=== PATIENT | female | born 1970 | race Caucasian/White ===

== ENCOUNTER 2023-05-14 18:37 | Outpatient (REF) | payer OTHER, SELFPAY ==
[2023-05-20 12:09] LABS: Age Gdln ACOG Testing Note (.); HPV Aptima Negative (Negative); IGP, Aptima HPV, rfx 16/18,45 Note (.)
== END 2023-05-14 18:38 | disposition home or self-care (01) ==
LOC: LAB 18:37
PROVIDERS: PCP Family Medicine; Visit Provider Obstetrics & Gynecology
DX: Z01.419 Encounter for gynecological examination (general) (routine) without abnormal findings (principal)
CPT/HCPCS: 87624; G0145

== ENCOUNTER 2023-05-19 07:52 | Outpatient (OUT) | payer OTHER, SELFPAY ==
--- NOTE | 2023-05-19 07:53 | MM_ITS ---
Patient Name: RENETTA COELLO MR#: [id number] : 1970 Exam Date: 05/19/2023 Ordering Doctor: VANNESSA Calix . RADIOLOGY REPORT PROCEDURE: MM TOMOSYNTHESIS SCREENING BI COMPARISON: MG MAMM SCREEN 3D JENNIFER CAD, 05/14/2022. MG MAMM SCREEN 3D JENNIFER CAD, 05/11/2021. MG MAMM SCREEN JENNIFER W CAD, 05/10/2020. MG MAMM JENNIFER SCRN W CAD DIG, 10/01/2013. INDICATIONS: Screening Calculator Name NCI Breast Cancer Risk Assessment Tool 5 Year Breast Cancer Risk 2.90% Lifetime Breast Cancer Risk 21.20% Personal Breast Cancer No Personal Ovarian Cancer No Treatments None Family Cancers Mother with breast cancer at age 70; Sister with melanoma cancer at age ~20. LOCATION: [facility] BREAST COMPOSITION: Heterogeneously dense,which may obscure small masses. FINDINGS: DIAGNOSTIC CATEGORY 1--NEGATIVE. RIGHT BREAST: No significant suspicious finding. No significant change has occurred. LEFT BREAST: No significant suspicious finding. Stable biopsy marker clips within upper-outer quadrant. No significant change has occurred. RECOMMENDATIONS: ROUTINE MAMMOGRAM AND CLINICAL EVALUATION IN 12 MONTHS. PLEASE NOTE: A NORMAL MAMMOGRAM DOES NOT EXCLUDE THE POSSIBILITY OF BREAST CANCER. A CLINICALLY SUSPICIOUS PALPABLE LUMP SHOULD BE BIOPSIED. Dictated by: Cheikh Russo M.D. on 05/21/2023 at 12:55 Approved by: Cheikh Russo M.D. on 05/21/2023 at 12:59
== END 2023-05-19 07:53 | disposition home or self-care (01) ==
LOC: MAMMO 07:52
PROVIDERS: PCP Family Medicine; Visit Provider Obstetrics & Gynecology
DX: Z12.31 Encounter for screening mammogram for malignant neoplasm of breast (principal); Z80.3 Family history of malignant neoplasm of breast; Z80.8 Family history of malignant neoplasm of other organs or systems
CPT/HCPCS: 77063; 77067

== ENCOUNTER 2023-06-19 12:20 | Outpatient (OUT) | payer OTHER, SELFPAY ==
--- OUTSIDE RECORDS SUMMARY | 2023-06-19 12:24 | XMS_ITS | CCD ---
Author Name Unknown Address [address] [place] [address] Organization [facility] Care Team Providers Care Cd Mixer Helper Name Role Phone DARCIE ., DR HUA Consulting Unavailable HOY ., DR MORENO Primary Care Unavailable DARCIE ., DR HUA Attending Unavailable DARCIE ., DR HUA Admitting Unavailable VERONIQUEJOSE Consulting Unavailable MCCASTER, VELVET Consulting Unavailable GEMBUS, DICK Consulting Unavailable DARCIE ., DR HUA Consulting Unavailable HOY ., DR MORENO Primary Care Unavailable DARCIE ., DR HUA Attending Unavailable DARCIE ., DR HUA Admitting Unavailable DARCIE ., DR HUA Consulting Unavailable HOY ., DR MORENO Primary Care Unavailable DARCIE ., DR HUA Attending Unavailable DARCIE ., DR HUA Admitting Unavailable DARCIE ., DR HUA Consulting Unavailable HOY ., DR MORENO Primary Care Unavailable DARCIE ., DR HUA Attending Unavailable DARCIE ., DR HUA Admitting Unavailable DARCIE ., DR HUA Consulting Unavailable HOY ., DR MORENO Primary Care Unavailable DARCIE ., DR HUA Attending Unavailable DARCIE ., DR HUA Admitting Unavailable DYLAN, JOAN Consulting Unavailable HOPaloma ., DR MORENO Primary Care Unavailable DYLAN, JOAN Attending Unavailable DYLAN, JOAN Admitting Unavailable DYLAN, JOAN Consulting Unavailable HOPaloma ., DR MORENO Primary Care Unavailable DYLAN, JOAN Attending Unavailable DYLAN, JOAN Admitting Unavailable DARCIE ., DR HUA Consulting Unavailable HOY ., DR MORENO Primary Care Unavailable DARCIE ., DR HUA Attending Unavailable DARCIE ., DR HUA Admitting Unavailable BELMOND, DR ROSSANA Teague Consulting Unavailable HOY ., DR MORENO Primary Care Unavailable DARCIE ., DR HUA Attending Unavailable DARCIE ., DR HUA Admitting Unavailable DARCIE ., DR HUA Consulting Unavailable DARCIE ., DR HUA Consulting Unavailable HOY ., DR MORENO Primary Care Unavailable DARCIE ., DR HUA Attending Unavailable DARCIE ., DR HUA Admitting Unavailable ZIEBER, DR CHEIKH Salguero Consulting Unavailable DIANE ., DR MORENO Consulting Unavailable ANTHONYY ., DR MORENO Primary Care Unavailable ANTHONYY ., DR MORENO Attending Unavailable HOY ., DR MORENO Admitting Unavailable BELMOND, DR ROSSANA Teague Consulting Unavailable REID JORGE Attending Unavailable Allergies Allergy Classification Reported Allergen(s) Allergy Type Date of Onset Reaction(s) Facility (2 sources) Fluconazole Drug Allergy 06-23-2021 [facility] (1 source) levoFLOXacin Drug Allergy [facility] Problems Active Problems Problem Classification Problem Date Documented Date Episodic/Chronic Menopausal disorders (1 source) Menopausal and female climacteric states; Translations: [MENOPAUSAL FE CLIMACTERIC STATES] Onset: 07-03-2022 Chronic Menstrual disorders (10 sources) Excessive and frequent menstruation with regular cycle; Translations: [Dysmenorrhea, unspecified] Onset: 05-09-2022 Chronic Other diseases of veins and lymphatics (4 sources) Venous insufficiency (chronic) (peripheral); Translations: [VENOUS INSUFF CHRONIC PERIPHERAL] Onset: 10-30-2022 Episodic Other endocrine disorders (1 source) Polycystic ovarian syndrome; Translations: [POLYCYSTIC OVARIAN SYNDROME] Onset: 07-03-2022 Chronic Prolapse of female genital organs (1 source) Uterovaginal prolapse, unspecified; Translations: [UTEROVAGINAL PROLAPSE UNSPECIFIED] Onset: 06-21-2022 Chronic Unclassified (1 source) PERSONAL HISTORY OF COVID-19; Translations: [PERSONAL HISTORY OF COVID-19] Onset: 07-03-2022 Unclassified (2 sources) CONTACT W/AND (SUSP) EXPOS COVID-19; Translations: [CONTACT W/AND (SUSP) EXPOS COVID-19] Onset: 06-01-2022 Viral infection (1 source) COVID-19; Translations: [COVID-19] Onset: 06-01-2022 Past or Other Problems Problem Classification Problem Date Documented Da te Episodic/Chronic Abdominal pain (1 source) Pelvic and perineal pain; Translations: [PELVIC AND PERINEAL PAIN] Onset: 07-03-2022 Episodic Immunizations and screening for infectious disease (1 source) Encounter for screening for human papillomavirus (HPV); Translations: [ENC SCREENING HUMAN PAPILLOMAVIRUS] Onset: 05-10-2022 Episodic Inflammatory diseases of female pelvic organs (1 source) Inflammatory disease of cervix uteri; Translations: [INFLAMMATORY DISEASE CERVIX UTERI] Onset: 07-03-2022 Episodic Other aftercare (1 source) Other terminal carman (current) drug therapy; Translations: [OTH NURSING HOME CURRENT DRUG THERAPY] Onset: 07-03-2022 Episodic Other aftercare (1 source) superintendent container terminal (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) use 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 hypoglycemic drugs; Translations: [FAMILY DENTIST USE ORAL HYPOGLYCEMIC DX] Onset: 07-03-2022 Episodic Other female genital disorders (1 source) Polyp of cervix uteri; Translations: [POLYP OF CERVIX UTERI] Onset: 06-21-2022 Episodic Other hematologic conditions (4 sources) Personal history of diseases of the blood and blood-forming organs and certain disorders involving the immune mechanism; Translations: [PERS HX DZ BLD/BLD-FRM ORG IMMN MCH] Onset: 07-04-2022 Episodic Other screening for suspected conditions (not mental disorders or infectious disease) (8 sources) Encounter for screening mammogram for malignant neoplasm of breast; Translations: [Encounter for screening for malignant neoplasm of cervix] Onset: 05-07-2022 Episodic Other skin disorders (1 source) Vitiligo; Translations: [VITILIGO] Onset: 07-03-2022 Episodic Phlebitis; thrombophlebitis and thromboembolism (1 source) Personal history of other venous thrombosis and embolism; Translations: [PERS HX OTH VENOUS THROMBOSIS AND EMBO] Onset: 07-03-2022 Episodic Residual codes; unclassified (1 source) Family history of malignant neoplasm of breast; Translations: [FAMILY HX MALIG NEOPLASM OF BREAST] Onset: 07-03-2022 Episodic Residual codes; unclassified (1 source) Acquired absence of other specified parts of digestive tract; Translations: [ACQ ABSENCE OTH PART DIGESTV TRACT] Onset: 07-03-2022 Episodic Residual codes; unclassified (1 source) Asymptomatic menopausal state; Translations: [ASYMPTOMATIC MENOPAUSAL STATE] Onset: 06-21-2022 Episodic Residual codes; unclassified (1 source) Family history of malignant neoplasm of other organs or systems; Translations: [FAM HX MALIG NEOPLASM OTH ORGN/SYS] Onset: 05-20-2022 Episodic Unclassified (1 source) CONTACT W/AND (SUSP) EXPOS COVID-19; Translations: [CONTACT W/AND (SUSP) EXPOS COVID-19] Onset: 05-28-2022 Urinary tract infections (1 source) Urinary tract infection, site not specified; Translations: [UTI SITE NOT SPECIFIED] Onset: 06-19-2022 Episodic Results Test Name Value Interpretation Reference Range Facility VC VENOUS REFLUX RT LMTon VC VENOUS REFLUX RT LMT Patient: ELIZA COELLO Exam Date: 10/30/2022 : 1970 Gender:F Ordering : DR JOSH HONG . Admission #: [id number] Family : Order #: [id number] CLICK HERE TO VIEW EXAM RADIOLOGY REPORT PROCEDURE: VEIN CENTER ULTRASOUND VENOUS REFLUX RIGHT LIMTED COMPARISON: VC EXT VENOUS RT LIMITED, 05/18/2019. VC EXT VENOUS RT LIMITED, 04/30/2019. INDICATIONS: Peripheral venous insufficiency I87.2 TECHNIQUE: Duplex imaging of the lower extremity to assess the deep and superficial venous system for the presence of deep or superficial venous incompetence and to document the location and severity of disease. The study includes evaluation of the great saphenous vein (GSV), anterior accessory saphenous vein (AASV) and small saphenous vein (SSV). Patient scanned in reverse Trendelenburg and standing. FINDINGS: RIGHT LOWER EXTREMITY: Saphenofemoral Junction Reflux: Yes 8.3mm 2.2 sec GSV: Diam (mm) Reflux/ Time (sec) Proximal Thigh Absent Mid Thigh Distal Thigh Prox Calf Mid Calf Saphenopopliteal Junction Reflux: 6.4 mm Yes 2.1 SSV: Proximal Calf 7.1 Yes 1.6 Mid Calf 3.1 Yes 3.4 AASV: Proximal Thigh 6.0 Yes 1.2 Mid Thigh 2.7 Yes 0.3 Distal Thigh Thrombi: No chronic or acute thrombus. Compressibility: Normal. Flow: Moderate deep venous reflux. Sales Manager: None. Tech Note: Incompetent varicose vein lateral mid calf measures 2.7 mm with 0.3s reflux. Varicose vein distal lateral calf measures 4.2 mm with 2.3s reflux. CONCLUSION: 1. Moderate deep vein reflux 2. Moderate venous insufficiency right small saphenous vein 3. Incompetent varicose veins Dictated by: Rossana Velásquez MD on 10/30/2022 at 12:55 Approved by: Rossana Velásquez MD on 10/30/2022 at 12:59 Normal [facility] CBC AUTO DIFFon 07-04-2022 BASO # 0.1 103/ul Normal 0.0-0.1 [facility] Comment on above: Performed By: #### T SH #### [facility] [address] [place] [address] Dr. Marlene Blanton Basophils/100 WBC (Bld) 0.6 % Normal 0.2-2.0 [facility] Comment on above: Performed By: #### T SH #### [facility] [address] [place] [address] Dr. Marlene Blanton EO # 0.0 103/ul Normal 0.0-0.7 [facility] Comment on above: Performed By: #### T SH #### [facility] [address] [place] [address] Dr. Marlene Blanton Eosinophils/100 WBC (Bld) 0.0 % Critically low 0.9-7.0 [facility] Comment on above: Performed By: #### T SH #### [facility] [address] [place] [address] Dr. Marlene Blanton Erythrocyte distribution width (RBC) [Ratio] 13.3 % Normal 11.0-15.0 [facility] Comment on above: Performed By: #### T SH #### [facility] [address] [place] [address] Dr. Marlene Blanton Hematocrit (Bld) [Volume fraction] 42.3 % Normal 36.0-48.0 [facility] Comment on above: Performed By: #### T SH #### [facility] [address] [place] [address] Dr. Marlene Blanton Hemoglobin (Bld) [Mass/Vol] 13.0 g/dL Normal 12.0-16.0 [facility] Comment on above: Performed By: #### T SH #### [facility] [address] [place] [address] Dr. Marlene Blanton IG # 0.04 10e3/ul Critically high 0.00-0.03 [facility] Comment on above: Performed By: #### T SH #### [facility] [address] [place] [address] Dr. Marlene Blanton IG % 0.4 % Normal 0.0-0.5 [facility] Comment on above: Performed By: #### T SH #### [facility] [address] [place] [address] Dr. Marlene Blanton LYMPH # 2.0 103/ul Normal 1.2-3.8 [facility] Comment on above: Performed By: #### T SH #### [facility] [address] [place] [address] Dr. Marlene Blanton Lymphocytes/100 WBC (Bld) 19.0 % Critically low 20.5-60.0 [facility] Comment on above: Performed By: #### T SH #### [facility] [address] [place] [address] Dr. Marlene Blanton MANUAL DIFF REQ NO Normal [facility] Comment on above: Performed By: #### T SH #### [facility] [address] [place] [address] Dr. Marlene Blanton MCH (RBC) [Entitic mass] 29.6 pg Normal 26.7-34.0 [facility] Comment on above: Performed By: #### T SH #### [facility] [address] [place] [address] Dr. Marlene Blanton MCHC (RBC) [Mass/Vol] 30.7 g/dL Normal 29.9-35.2 [facility] Comment on above: Performed By: #### T SH #### [facility] [address] [place] [address] Dr. Marlene Blanton MCV (RBC) [Entitic vol] 96.4 fL Normal 81.0-99.0 [facility] Comment on above: Performed By: #### T SH #### [facility] [address] [place] [address] Dr. Marlene Blanton MONO # 0.7 103/ul Normal 0.3-0.8 [facility] Comment on above: Performed By: #### T SH #### [facility] [address] [place] [address] Dr. Marlene Blanton Monocytes/100 WBC (Bld) 6.6 % Normal 1.7-12.0 [facility] Comment on above: Performed By: #### T SH #### [facility] [address] [place] [address] Dr. Marlene Blanton NEUT # 7.7 103/ul Critically high 1.4-6.5 [facility] Comment on above: Performed By: #### T SH #### [facility] [address] [place] [address] Dr. Marlene Blanton Neutrophils/100 WBC (Bld) 73.4 % Normal 43.0-75.0 [facility] Comment on above: Performed By: #### T SH #### [facility] [address] [place] [address] Dr. Marlene Blanton Platelet mean volume (Bld) [Entitic vol] 8.9 fL Critically low 9.5-13.5 [facility] Comment on above: Performed By: #### T SH #### [facility] [address] [place] [address] Dr. Marlene Blanton PLT 288 103/ul Normal 150-450 [facility] Comment on above: Performed By: #### T SH #### [facility] [address] [place] [address] Dr. Marlene Blanton RBC 4.39 106/ul Normal 4.20-5.40 [facility] Comment on above: Performed By: #### T SH #### [facility] [address] [place] [address] Dr. Marlene Blanton WBC 10.5 103/ul Normal 4.0-11.0 [facility] Comment on above: Performed By: #### T SH #### [facility] [address] [place] [address] Dr. Marlene Blanton FREE T4on 07-04-2022 Free T4 [Mass/Vol] 0.98 ng/dL Normal 0.76-1.46 [facility] Comment on above: Performed By: #### F T4 #### [facility] [address] [place] [address] Dr. Marlene Blanton PROTIMEon 07-04-2022 INR Coag (PPP) [Relative time] 0.95 {INR} Normal [facility] Comment on above: Performed By: #### P T, PTT #### [facility] [address] [place] [address] Dr. Marlene Blanton INR GUIDELINES SEE BELOW Normal [facility] Comment on above: Result Comment: GLEN RED INR: 2.0 - 3.0 CONDITIONS NOT LISTED BELOW 2.5 - 3.5 FOR PROSTHETIC HEART VALVE REPLACEMENT 2.5 - 3.5 RECURRENT THROMBOSIS Performed By: #### P T, PTT #### [facility] [address] [place] [address] Dr. Marlene Blanton PT Coag (PPP) [Time] 10.1 s Normal 9.0-11.6 [facility] Comment on above: Performed By: #### P T, PTT #### [facility] [address] [place] [address] Dr. Marlene Blanton PTTon 07-04-2022 aPTT Coag (Bld) [Time] 27.2 s Normal 22.3-36.2 [facility] Comment on above: Performed By: #### P T, PTT #### [facility] [address] [place] [address] Dr. Marlene Blanton TSHon 07-04-2022 TSH 1.916 uIU/mL Normal 0.358-3.740 [facility] Comment on above: Performed By: #### T SH #### [facility] [address] [place] [address] Dr. Marlene Blanton BUNon 06-21-2022 Urea nitrogen [Mass/Vol] 8.0 mg/dL Normal 7.0-18.0 [facility] Comment on above: Performed By: #### C BC #### [facility] [address] [place] [address] Dr. Marlene Blanton CBC AUTO DIFFon 06-21-2022 BASO # 0.0 103/ul Normal 0.0-0.1 [facility] Comment on above: Performed By: #### T SH #### [facility] [address] [place] [address] Dr. Marlene Blanton Basophils/100 WBC (Bld) 0.2 % Normal 0.2-2.0 [facility] Comment on above: Performed By: #### T SH #### [facility] [address] [place] [address] Dr. Marlene Blanton EO # 0.0 103/ul Normal 0.0-0.7 [facility] Comment on above: Performed By: #### T SH #### [facility] [address] [place] [address] Dr. Marlene Blanton Eosinophils/100 WBC (Bld) 0.1 % Critically low 0.9-7.0 [facility] Comment on above: Performed By: #### T SH #### [facility] [address] [place] [address] Dr. Marlene Blanton Erythrocyte distribution width (RBC) [Ratio] 13.4 % Normal 11.0-15.0 [facility] Comment on above: Performed By: #### T SH #### [facility] [address] [place] [address] Dr. Marlene Blanton Hematocrit (Bld) [Volume fraction] 33.6 % Critically low 36.0-48.0 [facility] Comment on above: Performed By: #### T SH #### [facility] [address] [place] [address] Dr. Marlene Blanton Hemoglobin (Bld) [Mass/Vol] 10.8 g/dL Critically low 12.0-16.0 [facility] Comment on above: Result Comment: post surgery Performed By: #### T SH #### [facility] [address] [place] [address] Dr. Marlene Blanton IG # 0.06 10e3/ul Critically high 0.00-0.03 [facility] Comment on above: Performed By: #### T SH #### [facility] [address] [place] [address] Dr. Marlene Blanton IG % 0.5 % Normal 0.0-0.5 [facility] Comment on above: Performed By: #### T SH #### [facility] [address] [place] [address] Dr. Marlene Blanton LYMPH # 2.0 103/ul Normal 1.2-3.8 [facility] Comment on above: Performed By: #### T SH #### [facility] [address] [place] [address] Dr. Marlene Blanton Lymphocytes/100 WBC (Bld) 16.1 % Critically low 20.5-60.0 [facility] Comment on above: Performed By: #### T SH #### [facility] [address] [place] [address] Dr. Marlene Blanton MANUAL DIFF REQ NO Normal [facility] Comment on above: Performed By: #### T SH #### [facility] [address] [place] [address] Dr. Marlene Blanton MCH (RBC) [Entitic mass] 29.0 pg Normal 26.7-34.0 [facility] Comment on above: Performed By: #### T SH #### [facility] [address] [place] [address] Dr. Marlene Blanton MCHC (RBC) [Mass/Vol] 32.1 g/dL Normal 29.9-35.2 [facility] Comment on above: Performed By: #### T SH #### [facility] [address] [place] [address] Dr. Marlene Blanton MCV (RBC) [Entitic vol] 90.1 fL Normal 81.0-99.0 [facility] Comment on above: Performed By: #### T SH #### [facility] [address] [place] [address] Dr. Marlene Blanton MONO # 0.7 103/ul Normal 0.3-0.8 [facility] Comment on above: Performed By: #### T SH #### [facility] [address] [address] [address] Marlene Blanton Monocytes/100 WBC (Bld) 5.3 % Normal 1.7-12.0 [facility] Comment on above: Performed By: #### T SH #### [facility] [address] [address] [address] Marlene Blanton NEUT # 9.7 103/ul Critically high 1.4-6.5 [facility] Comment on above: Performed By: #### T SH #### [facility] [address] [address] [address] Marlene Blanton Neutrophils/100 WBC (Bld) 77.8 % Critically high 43.0-75.0 [facility] Comment on above: Performed By: #### T SH #### [facility] [address] [place] [address] Dr. Marlene Blanton Platelet mean volume (Bld) [Entitic vol] 8.5 fL Critically low 9.5-13.5 [facility] Comment on above: Performed By: #### T SH #### [facility] [address] [place] [address] Dr. Marlene Blanton PLT 248 103/ul Normal 150-450 [facility] Comment on above: Performed By: #### T SH #### [facility] [address] [place] [address] Dr. Marlene Blanton RBC 3.73 106/ul Critically low 4.20-5.40 [facility] Comment on above: Performed By: #### T SH #### [facility] [address] [place] [address] Dr. Marlene Blanton WBC 12.4 103/ul Critically high 4.0-11.0 [facility] Comment on above: Performed By: #### T SH #### [facility] [address] [place] [address] Dr. Marlene Blanton CREATININEon 06-21-2022 Creatinine [Mass/Vol] 0.87 mg/dL Normal 0.55-1.02 [facility] Comment on above: Performed By: #### C BC #### [facility] [address] [place] [address] Dr. Marlene Blanton EGFR-AF MALAWIAN >60 Normal >=60 [facility] Comment on above: Performed By: #### C BC #### [facility] [address] [place] [address] Dr. Marlene Blanton EGFR-NON AF MALAWIAN >60 Normal >=60 [facility] Comment on above: Performed By: #### C BC #### [facility] [address] [place] [address] Dr. Marlene Blanton CBC AUTO DIFFon 06-19-2022 BASO # 0.1 103/ul Normal 0.0-0.1 [facility] Comment on above: Performed By: #### C BC #### [facility] [address] [place] [address] Dr. Marlene Blanton Basophils/100 WBC (Bld) 0.5 % Normal 0.2-2.0 [facility] Comment on above: Performed By: #### C BC #### [facility] [address] [place] [address] Dr. Marlene Blanton EO # 0.0 103/ul Normal 0.0-0.7 [facility] Comment on above: Performed By: #### C BC #### [facility] [address] [place] [address] Dr. Marlene Blanton Eosinophils/100 WBC (Bld) 0.1 % Critically low 0.9-7.0 [facility] Comment on above: Performed By: #### C BC #### [facility] [address] [place] [address] Dr. Marlene Blanton Erythrocyte distribution width (RBC) [Ratio] 13.4 % Normal 11.0-15.0 [facility] Comment on above: Performed By: #### C BC #### [facility] [address] [place] [address] Dr. Marlene Blanton Hematocrit (Bld) [Volume fraction] 39.8 % Normal 36.0-48.0 [facility] Comment on above: Performed By: #### C BC #### [facility] [address] [place] [address] Dr. Marlene Blanton Hemoglobin (Bld) [Mass/Vol] 13.2 g/dL Normal 12.0-16.0 [facility] Comment on above: Performed By: #### C BC #### [facility] [address] [place] [address] Dr. Marlene Blanton IG # 0.05 10e3/ul Critically high 0.00-0.03 [facility] Comment on above: Performed By: #### C BC #### [facility] [address] [place] [address] Dr. Marlene Blanton IG % 0.5 % Normal 0.0-0.5 [facility] Comment on above: Performed By: #### C BC #### [facility] [address] [place] [address] Dr. Marlene Blanton LYMPH # 2.4 103/ul Normal 1.2-3.8 [facility] Comment on above: Performed By: #### C BC #### [facility] [address] [place] [address] Dr. Marlene Blanton Lymphocytes/100 WBC (Bld) 24.7 % Normal 20.5-60.0 [facility] Comment on above: Performed By: #### C BC #### [facility] [address] [place] [address] Dr. Marlene Blanton MANUAL DIFF REQ NO Normal [facility] Comment on above: Performed By: #### C BC #### [facility] [address] [place] [address] Dr. Marlene Blanton MCH (RBC) [Entitic mass] 29.7 pg Normal 26.7-34.0 [facility] Comment on above: Performed By: #### C BC #### [facility] [address] [place] [address] Dr. Marlene Blanton MCHC (RBC) [Mass/Vol] 33.2 g/dL Normal 29.9-35.2 [facility] Comment on above: Performed By: #### C BC #### [facility] [address] [place] [address] Dr. Marlene Blanton MCV (RBC) [Entitic vol] 89.4 fL Normal 81.0-99.0 [facility] Comment on above: Performed By: #### C BC #### [facility] [address] [place] [address] Dr. Marlene Blanton MONO # 0.8 103/ul Normal 0.3-0.8 [facility] Comment on above: Performed By: #### C BC #### [facility] Laboratory [address] [place] [address] Dr. Marlene Blanton Monocytes/100 WBC (Bld) 7.9 % Normal 1.7-12.0 [facility] Comment on above: Performed By: #### C BC #### [facility] [address] [place] [address] Dr. Marlene Blanton NEUT # 6.3 103/ul Normal 1.4-6.5 [facility] Comment on above: Performed By: #### C BC #### [facility] [address] [place] [address] Dr. Marlene Blanton Neutrophils/100 WBC (Bld) 66.3 % Normal 43.0-75.0 [facility] Comment on above: Performed By: #### C BC #### [facility] [address] [place] [address] Dr. Marlene Blanton Platelet mean volume (Bld) [Entitic vol] 8.3 fL Critically low 9.5-13.5 [facility] Comment on above: Performed By: #### C BC #### [facility] [address] [place] [address] Dr. Marlene Blanton PLT 300 103/ul Normal 150-450 [facility] Comment on above: Performed By: #### C BC #### [facility] [address] [place] [address] Dr. Marlene Blanton RBC 4.45 106/ul Normal 4.20-5.40 [facility] Comment on above: Performed By: #### C BC #### [facility] [address] [place] [address] Dr. Marlene Blanton WBC 9.6 103/ul Normal 4.0-11.0 [facility] Comment on above: Performed By: #### C BC #### [facility] [address] [address] [address] Marlene Blanton PREG QUANT HCGon 06-19-2022 HCG QUANT 1 mIU/mL Normal [facility] Comment on above: Performed By: #### P REGQNT #### [facility] [address] [place] [address] Dr. Marlene Blanton HCG RANGE SEE BELOW Normal [facility] Comment on above: Result Comment: 5-50 0.2-1 WEEK 50-500 1-2 WEEKS 100-5,000 2-3 WEEKS 500-10,000 3-4 WEEKS 1,000-50,000 4-5 WEEKS 10,000-100,000 5-6 WEEKS 15,000-200,000 6-8 WEEKS 10,000-100,000 2-3 MONTHS Performed By: #### P REGQNT #### [facility] [address] [place] [address] Dr. Marlene Blanton TYPE AND SCREENon 06-19-2022 TYPE AND SCREEN Negative Normal [facility] Comment on above: Performed By: #### C BC #### [facility] [address] [place] [address] Dr. Marlene Blanton ASYMPTOMATIC COVID-19 ANTIGE Non 05-28-2022 EUA Statement SEE BELOW Normal [facility] Comment on above: Result Comment: This test has not been FDA cleared or approved, but has been authorized by the FDA under an Emergency Use Authorization (EUA) for use by authorized laboratories certified under CLIA that meet the requirements to perform moderate or high complexity testing. This test has been authorized only for the detection of proteins from SARS-CoV-2, not for any other viruses or pathogens. The emergency use of this test is authorized for the duration of the declaration that circumstances exist justifying the authorization of emergency use of in vitro diagnostic tests for detection and/or diagnosis of Covid-19 under section 564(b)(1) of the Act, 21 U.S.C. 360bbb-3(b)(1), unless the declaration is terminated or authorization is revoked sooner. Performed By: #### C BC #### [facility] [address] [place] [address] Dr. Marlene Blanton SARS-CoV-2 (COVID-19) RNA AUSTIN+probe Ql (Unsp spec) Positive Critically abnormal NEGATIVE [facility] Comment on above: Result Comment: SARS -CoV-2 antigen present; does not rule out coinfection with other pathogens. Performed By: #### C BC #### [facility] [address] [place] [address] Dr. Marlene Blanton Covid-19 PCR ([facility]on 04-24 SARS-CoV-2 (COVID-19) RNA [place]UST[place]+probe Ql (Unsp spec) Detected Critically abnormal NOT DETECTED [facility] Comment on above: Result Comment: This test is not yet approved or cleared by the [place] FDA. When there are no FDA-approved or cleared tests available, and other criteria are met, FDA can make tests available under an emergency access mechanism called an Emergency Use Authorization (EUA). The EUA for this test is supported by the [employer] Mechanic of Health and Human Service's declaration that circumstances exist to justify the emergency use of in vitro diagnostics for the detection and/or diagnosis of the virus that causes COVID-19. This EUA will remain in effect for the duration of the COVID-19 declaration justifying emergency of IVDs, unless it is terminated or revoked by the FDA (after which the test may no longer be used). Performed By: #### C VDTB #### [facility] [address] [place] [address] Dr. Marlene Blanton PAP ACOG PANEL 2: 30 to 65on 05-15-2022 . . Normal [facility] Comment on above: Result Comment: Perf ormed at: WB Performed By: #### [id number] #### [facility] [address] [place] [address] Dr. Marlene Blanton Age Gdln ACOG Testing 30-65 [facility] Comment on above: Performed By: #### [id number] #### [facility] [address] [place] [address] Dr. Marlene Blanton DIAGNOSIS: Comment Normal [facility] Comment on above: Result Comment: NEGA TIVE FOR INTRAEPITHELIAL LESION OR MALIGNANCY. FUNGAL ORGANISMS MORPHOLOGICALLY CONSISTENT WITH BAILEY SPECIES ARE PRESENT. Performed at: WB Performed By: #### [id number] #### [facility] [address] [place] [address] Dr. Marlene Blanton HPV Aptima Negative Normal Negative [facility] Comment on above: Result Comment: This nucleic acid amplification test detects fourteen high-risk HPV types (16,18,31,33,35,39,45,51,52,56,58,59,66,68) without differentiation. Performed at: =G Performed By: #### [id number] #### [facility] [address] [place] [address] Dr. Marlene Blanton HPV Genotype Reflex Comment Normal [facility] Comment on above: Result Comment: Crit eria not met, HPV Genotype not performed. Performed at: WB Performed By: #### 4 [id number] #### [facility] [address] [place] [address] Dr. Marlene Blanton Methodology: Comment Normal [facility] Comment on above: Result Comment: This liquid based ThinPrep(R) pap test was screened with the use of an image guided system. Performed at: WB Performed By: #### [id number] #### [facility] [address] [place] [address] Dr. Marlene Blanton Note: Comment Normal [facility] Comment on above: Result Comment: The Pap smear is a screening test designed to aid in the detection of premalignant and malignant conditions of the uterine cervix. It is not a diagnostic procedure and should not be used as the sole means of detecting cervical cancer. Both false-positive and false-negative reports do occur. . Performed at: WB Performed By: #### [id number] #### [facility] [address] [place] [address] Dr. Marlene Blanton Performed by: Comment Normal [facility] Comment on above: Result Comment: Marycruz Gilelspie Quality Project Manager (ASCP) Performed at: WB Performed By: #### [id number] #### [facility] [address] [place] [address] Dr. Marlene Blanton Specimen adequacy: Comment Normal [facility] Comment on above: Result Comment: Sati sfactory for evaluation. No endocervical component is identified. Performed at: WB Performed By: #### [id number] #### [facility] [address] [place], [place] [address] Dr. Marlene Blanton MG MAMM SCREEN 3D JENNIFER CADon 05-14-2022 MG MAMM SCREEN 3D JENNIFER CAD Patient: ELIZA COELLO Exam Date: 05/14/2022 : 1970 Gender:F Ordering : DR JAVID WATSON . Admission #: [id number] Family : DR JOSH HONG . Order #: [id number] CLICK HERE TO VIEW EXAM RADIOLOGY REPORT PROCEDURE: MAMMOGRAM SCREENING 3D BILATERAL CAD COMPARISON: MG MAMM SCREEN 3D JENNIFER CAD, 05/11/2021. MG MAMM SCREEN JENNIFER W CAD, 05/10/2020. INDICATIONS: Screening mammography Calculator Name NCI Breast Cancer Risk Assessment Tool 5 Year Breast Cancer Risk 2.80% Lifetime Breast Cancer Risk 21.60% Personal Breast Cancer No Personal Ovarian Cancer No Treatments None Family Cancers Mother with breast cancer at age 70; Sister with melanoma cancer at age 20. LOCATION: [facility] BREAST COMPOSITION: Heterogeneously dense,which may obscure small masses. FINDINGS: DIAGNOSTIC CATEGORY 1--NEGATIVE. RIGHT BREAST: No significant suspicious finding. No significant change has occurred. LEFT BREAST: No significant suspicious finding. No significant change has occurred. RECOMMENDATIONS: ROUTINE MAMMOGRAM AND CLINICAL EVALUATION IN 12 MONTHS. PLEASE NOTE: A NORMAL MAMMOGRAM DOES NOT EXCLUDE THE POSSIBILITY OF BREAST CANCER. A CLINICALLY SUSPICIOUS PALPABLE LUMP SHOULD BE BIOPSIED. Dictated by: Cheikh Russo M.D. on 05/14/2022 at 14:43 Approved by: Cheikh Russo M.D. on 05/14/2022 at 14:48 Normal [facility] US PELVIS AND TRANSVAGon US PELVIS AND TRANSVAG EXAMINATION: US PELVIS AND TRANSVAG HISTORY: Irregular periods COMPARISON: 05/04/2021 FINDINGS: Transabdominal and transvaginal images The uterus is normal in size, contour and echotexture, anteverted. Uterus measures 8.5 x 5.1 x 5.6 cm. Acoustic shadowing identified along the left myometrium with no focal myometrial mass. The endometrium measures 8 mm, normal. The right ovary is normal in appearance measuring 2.8 x 1.7 x 1.7 cm. Normal color Doppler flow. The left ovary is normal in appearance measuring 3.7 x 2.7 x 1.7 cm. Normal color Doppler flow. IMPRESSION: No acute abnormality Electronically authenticated by: ROSSANA VELÁSQUEZ Date: 2022-05-09 13:04 Normal [facility] CBC AUTO DIFFon 05-08-2022 BASO # 0.1 103/ul Normal 0.0-0.1 [facility] Comment on above: Performed By: #### T SH #### [facility] [address] [place] [address] Dr. Marlene Blanton Basophils/100 WBC (Bld) 0.7 % Normal 0.2-2.0 [facility] Comment on above: Performed By: #### T SH #### [facility] [address] [place] [address] Dr. Marlene Blanton EO # 0.0 103/ul Normal 0.0-0.7 [facility] Comment on above: Performed By: #### T SH #### [facility] [address] [place] [address] Dr. Marlene Blanton Eosinophils/100 WBC (Bld) 0.0 % Critically low 0.9-7.0 [facility] Comment on above: Performed By: #### T SH #### [facility] [address] [place] [address] Dr. Marlene Blanton Erythrocyte distribution width (RBC) [Ratio] 13.4 % Normal 11.0-15.0 [facility] Comment on above: Performed By: #### T SH #### [facility] [address] [place] [address] Dr. Marlene Blanton Hematocrit (Bld) [Volume fraction] 42.1 % Normal 36.0-48.0 [facility] Comment on above: Performed By: #### T SH #### [facility] [address] [place] [address] Dr. Marlene Blanton Hemoglobin (Bld) [Mass/Vol] 13.8 g/dL Normal 12.0-16.0 [facility] Comment on above: Performed By: #### T SH #### [facility] [address] [place] [address] Dr. Marlene Blanton IG # 0.04 10e3/ul Critically high 0.00-0.03 [facility] Comment on above: Performed By: #### T SH #### [facility] [address] [place] [address] Dr. Marlene Blanton IG % 0.4 % Normal 0.0-0.5 [facility] Comment on above: Performed By: #### T SH #### [facility] [address] [place] [address] Dr. Marlene Blanton LYMPH # 2.1 103/ul Normal 1.2-3.8 [facility] Comment on above: Performed By: #### T SH #### [facility] [address] [place] [address] Dr. Marlene Blanton Lymphocytes/100 WBC (Bld) 23.3 % Normal 20.5-60.0 [facility] Comment on above: Performed By: #### T SH #### [facility] [address] [place] [address] Dr. Marlene Blanton MANUAL DIFF REQ NO Normal [facility] Comment on above: Performed By: #### T SH #### [facility] [address] [place] [address] Dr. Marlene Blanton MCH (RBC) [Entitic mass] 29.3 pg Normal 26.7-34.0 [facility] Comment on above: Performed By: #### T SH #### [facility] [address] [place] [address] Dr. Marlene Blanton MCHC (RBC) [Mass/Vol] 32.8 g/dL Normal 29.9-35.2 [facility] Comment on above: Performed By: #### T SH #### [facility] [address] [place] [address] Dr. Marlene Blanton MCV (RBC) [Entitic vol] 89.4 fL Normal 81.0-99.0 [facility] Comment on above: Performed By: #### T SH #### [facility] [address] [place] [address] Dr. Marlene Blanton MONO # 0.7 103/ul Normal 0.3-0.8 [facility] Comment on above: Performed By: #### T SH #### [facility] [address] [place] [address] Dr. Marlene Blanton Monocytes/100 WBC (Bld) 7.3 % Normal 1.7-12.0 [facility] Comment on above: Performed By: #### T SH #### [facility] [address] [place] [address] Dr. Marlene Blanton NEUT # 6.1 103/ul Normal 1.4-6.5 [facility] Comment on above: Performed By: #### T SH #### [facility] [address] [place] [address] Dr. Marlene Blanton Neutrophils/100 WBC (Bld) 68.3 % Normal 43.0-75.0 [facility] Comment on above: Performed By: #### T SH #### [facility] [address] [place] [address] Dr. Marlene Blanton Platelet mean volume (Bld) [Entitic vol] 8.8 fL Critically low 9.5-13.5 [facility] Comment on above: Performed By: #### T SH #### [facility] [address] [place] [address] Dr. Marlene Blanton PLT 310 103/ul Normal 150-450 [facility] Comment on above: Performed By: #### T SH #### [facility] [address] [place] [address] Dr. Marlene Blanton RBC 4.71 106/ul Normal 4.20-5.40 [facility] Comment on above: Performed By: #### T SH #### [facility] [address] [place] [address] Dr. Marlene Blanton WBC 9.0 103/ul Normal 4.0-11.0 [facility] Comment on above: Performed By: #### T SH #### [facility] [address] [place] [address] Dr. Marlene Blanton FREE T4on 05-08-2022 Free T4 [Mass/Vol] 1.09 ng/dL Normal 0.76-1.46 [facility] Comment on above: Performed By: #### T SH #### [facility] [address] [place] [address] Dr. Marlene Blanton PREG QUANT HCGon 05-08-2022 HCG QUANT 1 mIU/mL Normal [facility] Comment on above: Performed By: #### T SH, PREGQNT #### [facility] [address] [place] [address] Dr. Marlene Blanton HCG RANGE SEE BELOW Normal [facility] Comment on above: Result Comment: 5-50 0.2-1 WEEK 50-500 1-2 WEEKS 100-5,000 2-3 WEEKS 500-10,000 3-4 WEEKS 1,000-50,000 4-5 WEEKS 10,000-100,000 5-6 WEEKS 15,000-200,000 6-8 WEEKS 10,000-100,000 2-3 MONTHS Performed By: #### T SH, PREGQNT #### [facility] [address] [place] [address] Dr. Marlene Blanton PROTIMEon 05-08-2022 INR Coag (PPP) [Relative time] 0.95 {INR} Normal [facility] Comment on above: Performed By: #### C BC #### [facility] [address] [place] [address] Dr. Marlene Blanton INR GUIDELINES SEE BELOW Normal [facility] Comment on above: Result Comment: GLEN RED INR: 2.0 - 3.0 CONDITIONS NOT LISTED BELOW 2.5 - 3.5 FOR PROSTHETIC HEART VALVE REPLACEMENT 2.5 - 3.5 RECURRENT THROMBOSIS Performed By: #### C BC #### [facility] [address] [place] [address] Dr. Marlene Blanton PT Coag (PPP) [Time] 10.3 s Normal 9.0-11.6 [facility] Comment on above: Performed By: #### C BC #### [facility] [address] [place], [place] [id number] Dr. Marlene Blanton PTTon 05-08-2022 aPTT Coag (Bld) [Time] 26.3 s Normal 22.3-36.2 [facility] Comment on above: Performed By: #### C BC #### [facility] [address] [place] [address] Dr. Marlene Blanton TSHon 05-08-2022 TSH 4.001 uIU/mL Critically high 0.358-3.740 [facility] Comment on above: Performed By: #### T SH, PREGQNT #### [facility] [address] [place] [address] Dr. Marlene Blanton Reminderson 06-01-2020 Reminders - From: Jesenia Price LPN To: N - Clinical; Sent: 06/01/2020 08:20:44 EST Show up: 04/24/2030 09:00:00 EDT Subject: colonoscopy recall Due Date/Time: 05/24/2030 09:00:00 EST Reminder/Recall Patient is due for screening colonoscopy 05/24/2030. Normal [facility] Ambulatory Clinical Summaryo n 05-31-2020 Ambulatory Clinical Summary {[id number] Normal [facility] General Surgery Office/Clini c Noteon 05-31-2020 General Surgery Office/Clinic Note Chief Complaint post operative follow up HPI Staff 7 day post operative follow up post colonoscopy with sigmoid biopsy. Continues with intermittent constipation alternating with diarrhea. History of Present Illness doing well, no blood in stool, symptoms unchanged; evidence of redundant colon with spasm, sigmoid biopsy wnl, no inflammation; likely IBS. Review of Systems ROS - Provider Constitutional: no fever, no sweats, no weight loss. Eyes: no glasses, no blurred vision, no visual loss. ENMT: no dentures, no hoarseness, no swallowing difficulties, no hearing loss, no ear infection(s), no nose bleeds. Cardiovascular: normal blood pressure, no chest pain, regular heartbeat, no heart murmur. Respiratory: no shortness of breath, no cough, no asthma, no wheezing. Gastrointestinal: no nausea, no vomiting, yes diarrhea, yes constipation, no blood in stool, no change in bowel habits, mild abdominal pain, no hepatitis. Genitourinary: no kidney stones, no urine infection, no dysuria. Musculoskeletal: no pain, no weakness. Skin: no changing moles, no rash, no skin lumps. Neurologic: no seizures, no epilepsy, no headache. Psychiatric: no emotional or psychiatric problem. Heme/Lymph: no bleeding problems, no anemia, no blood clots, no transfusions. Allergy/Immunologic: no swollen lymph nodes/glands, no IV drug abuse. Other: Additional ROS info: Except as noted in the above Review of Systems and in the History of Present Illness, all other systems have been reviewed and are negative or noncontributory. Physical Exam Vitals & Measurements T: 36.5 ?C (Tympanic) Assessment/Plan 1. IBS (irritable bowel syndrome) (K58.9: Irritable bowel syndrome without diarrhea) recommend high fiber diet, 25-30 gms daily, and daily fiber supplement; trial of low FODMAP diet; call with problems/questions; follow up colonoscopy in 10 years for screening. Follow-up With When Contact Information GABRIEL LAUREN, Corby Salguero Only if needed [address] [place] [address]- Additional Instructions: Problem List/Past Medical History Ongoing Abdominal pain, left lower quadrant Abdominal pain, suprapubic Allergic rhinitis Change in bowel habits Chronic vertigo Hair loss History of DVT (deep vein thrombosis) IBS (irritable bowel syndrome) Migraine Neuropathy Ruptured extensor tendon of hand or wrist Seborrheic keratosis Vitiligo Historical No qualifying data Procedure/Surgical History Colonoscopy (05/24/2020), Cholecystectomy. Medications cetirizine 10 mg Tab, 10 mg= 1 tab(s), Oral, Daily DHEA 10 mg oral capsule, 10 mg= 1 cap(s), Oral, Daily metformin 500 mg Tab, 500 mg= 1 tab(s), Oral, BID Allergies Levaquin (Syncope) Social History Alcohol - Denies Alcohol Use, 05/09/2020 Substance Abuse - Denies Substance Abuse, 05/09/2020 Tobacco Never (less than 100 in lifetime) Tobacco Use:., 05/09/2020 Family History Hyperthyroidism: Sister. Primary malignant neoplasm of female breast: Mother. Normal [facility] Comment on above: Result Comment: Elec tronically Signed By: GABRIEL LAUREN, Corby Salguero\.layla\Date and Time Signed: 05/31/20 16:31 EST Pathology Noteon 05-29-2020 Pathology Note [id number] .00CD:127 Normal [facility] Outside Colonoscopyon 2019 Outside Colonoscopy [id number] .[id number]:127 Normal [facility] Lab Reportson 05-25-2020 Lab Reports [id number] .00CD:127 Normal [facility] Provider Letter FTMCon 05-12 Provider Letter [facility] Josh Hong, [facility] [place] [address] Re: ELIZA COELLO Date of : 1970 Thank you for your referral of Eliza Coello who was seen on consultation on May 09, 2020, for rectal bleeding, abdominal pain with bowel movements. A colonoscopy is ordered for further evaluation. I will be happy to follow Eliza. Sincerely, Corby Buitrago MD General Surgery [facility] Ambulatory Clinical Summaryo n 05-09-2020 Ambulatory Clinical Summary {[id number] [facility] General Surgery Office/Clini c Noteon 05-09-2020 General Surgery Office/Clinic Note Chief Complaint referral for rectal bleeding HPI Staff 49 year old female presents on consultation from Dr. Hong for one time episode of rectal bleeding. Since January, has been experiencing centralized abdominal pain with bowel movements. Has been experiencing right lower quadrant pain for greater than one year, however, experiencing an increase in pain since January. Denies nausea or vomiting. CT abdomen/pelvis completed 02/2019 reported negative. 20# weight loss since January. Long history of intermittent diarrhea alternating with constipation. Never had colonoscopy in the past. No known family history of colon cancer. History of Present Illness 49 yo female referred by Dr Hong for lower abdominal pain and bowel changes; patient reports long h/o intermittent diarrhea and constipation, as well as intermittent sharp lower abdominal pain; ct scan of abd/pelvis last year wnl; patient had COVID 19 in December and had severe watery diarrhea then; one episode of BRBPR with bm in January; now with more severe crampy lower abdominal pain, mid and LLQ, prior to bms; increased gas; pain sharp, doubles her over; relieved after bms; only abdominal operation LS cholecystectomy; no previous colonoscopy; no asa or NSAID use; no SBE prophylaxis; no fmhx of GI malignancy or IBD. Review of Systems PHQ Score Initial Depression Screen Score: 0 ROS - Provider Constitutional: no fever, no sweats, no weight loss. Eyes: no glasses, no blurred vision, no visual loss. ENMT: no dentures, no hoarseness, no swallowing difficulties, no hearing loss, no ear infection(s), no nose bleeds. Cardiovascular: normal blood pressure, no chest pain, regular heartbeat, no heart murmur. Respiratory: no shortness of breath, no cough, no asthma, no wheezing. Gastrointestinal: no nausea, no vomiting, moderate diarrhea, mild constipation, yes blood in stool, yes change in bowel habits, moderate abdominal pain, no hepatitis. Genitourinary: no kidney stones, no urine infection, no dysuria. Musculoskeletal: no pain, no weakness. Skin: no changing moles, no rash, no skin lumps. Neurologic: no seizures, no epilepsy, no headache. Psychiatric: no emotional or psychiatric problem. Heme/Lymph: no bleeding problems, no anemia, no blood clots, no transfusions. Allergy/Immunologic: no swollen lymph nodes/glands, no IV drug abuse. Other: Additional ROS info: Except as noted in the above Review of Systems and in the History of Present Illness, all other systems have been reviewed and are negative or noncontributory. Physical Exam Vitals & Measurements T: 36.5 ?C (Tympanic) HR: 72(Peripheral) RR: 16 BP: 100/60 HT: 170.18 cm HT: 170.2 cm WT: 74.7 kg WT: 74.7 kg BMI: 25.79 HEENT: normal conjunctiva, sclera clear, no scleral icterus, EOM intact, PERRLA. oral mucosa moist without lesions Neck: trachea midline , no mass, symmetric, no thyromegaly or nodules. no adenopathy Respiratory: lungs CTA, respirations non labored. Cardiovascular: regular rate and rhythm, no murmur, , no pedal edema or varicosities. Gastrointestinal: soft, non distended, no tenderness, no masses, no palpable hernias, diastasis recti no, no hepatosplenomegaly. normal bs Lymphatic: no cervical adenopathy, no axillary adenopathy, Musculoskeletal: normalgait, digits and nails without infection, nodes, cyanosis, clubbing. Skin: no rashes, no lesions, no ulcers, no subcutaneous nodules, induration. Psychiatric/Neuro: oriented to time, place, person, judgement normal, affect appropriate for age, insight intact, no focal deficits. Tests: x-rays reviewed, review of old records completed, Discussed surgical options, risks, and possible complications with patient. Assessment/Plan 1. Abdominal pain, left lower quadrant (R10.32: Left lower quadrant pain) plan colonoscopy under anesthesia for further evaluation, informed consent obtained. patient understands the risks associated with COVID-19, and the need for preoperative testing with self-isolation until the procedure. 2. Abdominal pain, suprapubic (R10.2: Pelvic and perineal pain) see # 1 3. Change in bowel habits (R19.4: Change in bowel habit) see # 1 Orders: Most recent diastolic blood pressure <80 mm Hg 3078F Systolic BP <130 mm Hg (Most Recent) 3074F Follow-up No qualifying data available Patient Education Exercise to Stay Healthy, [id number]-[id number] Problem List/Past Medical History Ongoing Abdominal pain, left lower quadrant Abdominal pain, suprapubic Allergic rhinitis Change in bowel habits Chronic vertigo Hair loss History of DVT (deep vein thrombosis) Migraine Neuropathy Ruptured extensor tendon of hand or wrist Seborrheic keratosis Vitiligo Historical No qualifying data Procedure/Surgical History Cholecystectomy. Medications cetirizine 10 mg Tab, 10 mg= 1 tab(s), Oral, Daily DHEA 10 mg oral capsule, 10 mg= 1 cap(s), Oral, Daily metformin 500 mg Tab, 500 mg= 1 tab(s), Oral, BID Allergies Levaquin (Syncope) Social History Alcohol - Denies Alcohol Use, 05/09/2020 Substance Abuse - Denies Substance Abuse, 05/09/2020 Tobacco Never (less than 100 in lifetime) Tobacco Use:., 05/09/2020 Family History Hyperthyroidism: Sister. Primary malignant neoplasm of female breast: Mother. [facility] Comment on above: Result Comment: Xavier roy Signed By: Corby BUITRAGO MD\Date and Time Signed: 05/09/20 17:10 EST Patient Educationon 05-09-20 Patient Education Exercise to Stay Healthy Exercise helps you become and stay healthy. EXERCISE IDEAS AND TIPS Choose exercises that: ? You enjoy. ? Fit into your day. You do not need to exercise really hard to be healthy. You can do exercises at a slow or medium level and stay healthy. You can: ? Stretch before and after working out. ? Try yoga, Pilates, or chel chi. ? Lift weights. ? Walk fast, swim, jog, run, climb stairs, bicycle, dance, or rollerskate. ? Take aerobic classes. Exercises that burn about 150 calories: ? Running 1 ? miles in 15 minutes. ? Playing volleyball for 45 to 60 minutes. ? Washing and waxing a car for 45 to 60 minutes. ? Playing touch football for 45 minutes. ? Walking 1 ? miles in 35 minutes. ? Pushing a stroller 1 ? miles in 30 minutes. ? Playing basketball for 30 minutes. ? Raking leaves for 30 minutes. ? Bicycling 5 miles in 30 minutes. ? Walking 2 miles in 30 minutes. ? Dancing for 30 minutes. ? Shoveling snow for 15 minutes. ? Swimming laps for 20 minutes. ? Walking up stairs for 15 minutes. ? Bicycling 4 miles in 15 minutes. ? Gardening for 30 to 45 minutes. ? Jumping rope for 15 minutes. ? Washing windows or floors for 45 to 60 minutes. Document Released: 07/12/2011 Document Revised: 08/31/2012 Document Reviewed: 07/12/2011 ExitCare? Patient Information ?2013 [employer] [facility] Physician Referralon 020 Physician Referral [phone] 1 [id number] [facility] Encounters Encounter Date Encounter Type Care Provider Facility Start: 05-14-2023 End: 05-14-2023 ambulatory REID JORGE Not Available Start: 10-30-2022 End: 10-31-[address] JOSH HONG . Facility[facility] Start: 07-04-2022 End: 07-05-[address] JAVID WATSON . Facility[facility] Start: 06-21-2022 Encounter for prepro cedural laboratory examination DR JAVID WATSON . [facility] Start: 06-20-2022 End: 06-21-[address] JAVID WATSON . Facility:[facility] Start: 06-19-2022 Encounter for prepro cedural cardiovascular examination DR JAVID WATSON . [facility] Start: 06-19-2022 End: 06-20-[address] JAVID WATSON . Facility:[facility] Start: 06-19-2022 End: 06-20-2022 Encounter for preprocedural laboratory examination DR JAVID WATSON . Facility:[facility] Start: 06-11-2022 End: 06-12-[address] JAVID WATSON . Facility:[facility] Start: 06-11-2022 End: 06-12-2022 Encounter for preprocedural cardiovascular examination DR JAVID WATSON . Facility:[facility] Start: 05-28-2022 End: 05-28-2022 ambulatory JOAN RICHARDSON Facility:[facility] Start: 05-21-2022 End: 05-21-2022 ambulatory JOAN RICHARDSON Facility:[facility] Start: 05-14-2022 End: 05-15-[address] JAVID WATSON . Facility:[facility] Start: 05-09-2022 End: 05-10-[address] ROSSANA VELÁSQUEZ Facility:[facility] Start: 05-08-2022 End: 05-09-[address] JAVID WATSON . Facility:[facility] Start: 05-07-2022 End: 05-07-[address] JAVID WATSON . Facility:[facility] Payers Date Payer Category Payer Unknown [id number] .16.84 [id number] 1970 Unknown [id number] .16.84 [id number] 1970 Unknown [id number] 2.16.84 [id number] 1970 Unknown [id number] 2.16.84 [id number] 1969 Unknown [id number] 2.16.84 [id number] 1970 Unknown [id number] 2.16.84 [id number] 1969 Unknown [id number] 2.16.84 [id number] 1969 Unknown [id number] 2.16.84 [id number] 1969 Unknown [id number] 2.16.84 [id number] 1969 Unknown [id number] 2.16.84 [id number] 1969 Unknown [id number] 2.16.84 [id number] 1970 Unknown [id number] 2.16.840 .[id number] 1959 Unknown [id number] Clinical Note 06-20-2022 Note Date & Type Note Facility 06-20-2022 Note OPERATIVE NOTE OPERATION DATE: 06/20/2022 PROCEDURE: vNOTES hysterectomy with cystoscopy and bilateral salpingectomy. PREOPERATIVE DIAGNOSIS: Pelvic pressure, menorrhagia, dysmenorrhea, dyspareunia. POSTOPERATIVE DIAGNOSIS: Pelvic pressure, menorrhagia, dysmenorrhea, dyspareunia. ANESTHESIA: General. SURGEON: Javid Watson M.D. CLIENT SERVICES ACCOUNT MANAGER: PIYUSH Howell URINE OUTPUT: Yellow and clear. BLOOD LOSS: 50 mL. SPECIMEN: Uterus and tubes. FINDINGS: Normal appearing ovaries and tubes, as well as slightly enlarged uterus. PROCEDURE: Patient was brought back to the operating room where she was given general anesthesia. She was placed in the dorsal lithotomy position, after being prepped and draped in a sterile fashion. A Rodriguez catheter was placed. A weight speculum was placed posterior in the vagina. The cervix was grasped anteriorly and posteriorly with two single tooth tenaculums and placed on traction. A solution of Marcaine, lidocaine and epinephrine and saline was liberally infiltrated into the cervicovaginal junction. The knife was then used to circumscribe the cervicovaginal junction and the posterior cul-de-sac was sharply entered without difficulty. The long weighted duck tail speculum was then placed and the peritoneum was tacked to the vaginal epithelium. We then turned our attention to the uterosacral ligaments which were bilaterally cross clamped, transected and suture ligated, and they were held with hemostats. Attention was then turned to the anterior compartment, where the cervicovaginal junction was similarly divided and the bladder was then sharply and bluntly dissected off the cervix and lower uterine segment, and the anterior cul-de-sac was sharply entered. The epithelium was tacked to the peritoneum. Lateral attachments of the uterus were secured with Nataly clamps and suture ligated. The retractors were then removed and were placed by the path inner ring anteriorly followed by posteriorly. Once the ring was seated, the cap was placed and the laparoscopic ports were placed through this cap and the gas was allowed to insufflate the pelvis. A GynLap was placed posteriorly to facilitate mobilization of the bowel and control bleeding. This was later retrieved. The LigaSure device was used to secure the lateral attachments of the uterus on the left side, including the cardinal ligaments and the uterine vasculature, once the utero-ovarian ligament was reached. We turned attention to the right side, where the LigaSure device was used to fully detach the uterus from the pelvic side wall. The ureters were seen visually; before, during and after the pedicles were created. The ureters were bilaterally in normal locations, peristalsing. On the right side, the fallopian tube was easily divided away from the ovary and removed from the field. The left sided ovary was normal and the tube was left attached to the uterus, and the fimbriated end detached from the ovary. The uterus, both fallopian tubes were removed from the field. The GynLap was also removed from the field. The inner ring and gel ports cap were removed and the vaginal retractors were replaced. Lateral figure of eight sutures were placed bilaterally where bleeding occurred behind the ring and no further sutures were needed. The colpopexy was then carried out, passing a stitch posterior to the vaginal wall, capturing the left uterosacral ligament, going across the posterior peritoneum to the right uterosacral ligament and exiting out the vaginal wall posteriorly. The vaginal cuff was then closed in a single running/locking stitch, using O Monocryl and the uterosacral ligaments were cut. Once the vaginal cuff was fully closed, the uterosacral colpopexy stitch was then tied down tightly, elevating the vaginal cuff to the uterosacral ligaments in a satisfactory manner. The Rodrigeuz catheter was removed and the patient was awakened and taken recovery in excellent condition. Sponge, lap, needle counts correct x2. [facility] Summary Purpose Family History No Family History Records FoundNo Family History Records FoundNo Family History Records Found Advance Directives No Advanced Directives Records FoundNo Advanced Directives Records FoundNo Advanced Directives Records Found Additional Source Comments INFORMATION SOURCE (unrecogn ized section and content) DATE CREATED AUTHOR [facility] DATE CREATED AUTHOR AUTHOR'S ORGANIZ ATION 11/03/2022 [facility] DATE CREATED AUTHOR AUTHOR'S ORGANIZ ATION 05/16/2023 [facility] FOR RECORDS PERTAINING TO PATIENTS WHO ARE OR HAVE BEEN ENROLLED IN A CHEMICAL DEPENDENCY/SUBSTANCEABUSE PROGRAM, SOME INFORMATION MAY BE OMITTED. This clinical summary was aggregated from multiple sources. Caution should be exercised in using it in the provision of clinical care. This summary normalizes information from multiple sources, and as a consequence, information in this document may materially change the coding, format and clinical context of patient data. In addition, data may be omitted in some cases. CLINICAL DECISIONS SHOULD BE BASED ON THE PRIMARY CLINICAL RECORDS. [facility] [employer] [facility]. provides no warranty or guarantee of the accuracy or completeness of information in this document.
[2023-06-19 12:51] LABS: Basophils Percent Auto 0.4 % (0.2-2.0); Hematocrit 39.9 % (36.0-48.0); Hemoglobin 12.5 g/dL (12.0-16.0); Immature Granulocytes Abs Auto 0.03 10^3/uL (0.00-0.03); Immature Granulocytes Pct Auto 0.4 % (0.0-0.5); Lymphocytes Absolute Auto 1.7 10^3/uL (1.2-3.8); Lymphocytes Percent Auto 20.1 % (20.5-60.0); Mean Corpuscular HGB Conc 31.3 g/dL (29.9-35.2); Mean Corpuscular Hemoglobin 28.4 pg (26.7-34.0); Mean Corpuscular Volume 90.7 fL (81.0-99.0); Mean Platelet Volume 8.8 fL (9.5-13.5); Monocytes Absolute Auto 0.5 10^3/uL (0.3-0.8); Monocytes Percent Auto 6.4 % (1.7-12.0); Neutrophils Absolute Auto 6.1 10^3/uL (1.4-6.5); Neutrophils Percent Auto 72.7 % (43.0-75.0); Platelet Count 311 10^3/uL (150-450); Red Cell Distribution Width 13.3 % (11.0-15.0); White Blood Count 8.4 10^3/uL (4.0-11.0)
[2023-06-19 13:39] LABS: Mono Screen NEGATIVE (NEGATIVE)
[2023-06-19 13:51] LABS: Free T4 0.88 ng/dL (0.76-1.46)
[2023-06-19 13:53] LABS: Alanine Aminotransferase 15 U/L (14-59); Albumin Globulin Ratio 1.1; Albumin Level 3.5 g/dL (3.4-5.0); Alkaline Phosphatase 77 U/L (46-116); Anion Gap 12.2; Aspartate Amino Transferase 13 U/L (15-37); BUN Creatinine Ratio 10.2; Bilirubin Total 0.1 mg/dL (0.2-1.0); Calcium 9.4 mg/dL (8.5-10.1); Carbon Dioxide 29.8 mmol/L (21.0-32.0); Chloride 105 mmol/L (98-107); Estimated GFR (African America >60 (>=60); Estimated GFR (Non-African Ame >60 (>=60); Free T3 2.26 pg/mL (2.18-3.98); Globulin 3.2 g/dL; Glucose 63 mg/dL (74-106); Sodium 143 mmol/L (136-145); Thyroid Stimulating Hormone 2.606 uIU/mL (0.358-3.740); Total Protein 6.7 g/dL (6.4-8.2)
== END 2023-06-19 12:21 | disposition home or self-care (01) ==
LOC: LAB 12:22
PROVIDERS: PCP Family Medicine; Visit Provider Family Medicine
DX: R53.83 Other fatigue (principal)
CPT/HCPCS: 36415; 80053; 84439; 84443; 84481; 85025; 86308

== ENCOUNTER 2023-06-20 09:11 | Outpatient (OUT) | payer OTHER, SELFPAY ==
--- NOTE | 2023-06-20 09:10 | MR_ITS ---
The [address] [address] Patient Name: RENETTA COELLO MRN: [id number] date: 1970 Sex: F Assigned Patient Location: MRI Current Patient Location: MRI Accession/Order Number: [id number] Exam Date: 06/20/2023 09:15 Report Date: 06/20/2023 10:05 At the request of: JOSH CONTRERAS Procedure: MR head/brain wo con MRI BRAIN WITHOUT CONTRAST; 06/20/2023 9:15 AM EST History:Migraine G43 Comparison: None available . SEQUENCES: Per routine unenhanced protocol. STUDY QUALITY: Good No evidence of acute infarction. No restricted diffusion. No unexpected paramagnetic substance deposition. Small focus of T2 FLAIR hyperintensity in the left subinsular region. Elsewhere, minimal punctate subcortical foci in the cerebral white matter. On this unenhanced examination, there is no distinct evidence of intracranial mass. There is no mass effect. There is no midline shift. VESSELS: Signal voids are present in the major intracranial blood vessels. BRAIN VOLUME: Mild frontal and high parietal atrophy. VENTRICLES: No hydrocephalus. ORBITS: No acute findings. SELLA/ SUPRASELLAR: No acute findings at relatively thick sections. CP ANGLES: No acute findings at relatively thick sections. UPPER CERVICAL: No acute findings. PARANASAL SINUSES: No air-fluid levels. Suspect a few tiny retention cysts in the maxillary antra MASTOIDS: Essentially clear at MRI CALVARIUM: No acute findings. OTHER: None. MR/MR head/brain wo con IMPRESSION: 1. No evidence of acute process on this unenhanced study as described. 2. A few predominantly very small punctate white matter foci. This may well simply be normal in amount for age. Electronically authenticated by: CARISSA SOUSA Date: 06/20/2023 10:05
--- OUTSIDE RECORDS SUMMARY | 2023-06-20 09:16 | XMS_ITS | CCD ---
Author Name Unknown Address [id number] [place] [address] Organization [facility] Care Team Providers Care Diamond Cleaner Name Role Phone DARCIE ., DR HUA Consulting Unavailable HOY ., DR MORENO Primary Care Unavailable DARCIE ., DR HUA Attending Unavailable DARCIE ., DR HUA Admitting Unavailable VERONIQUEJOSE Consulting Unavailable MCCASTER, VELVET Consulting Unavailable GEMBUS, DICK Consulting Unavailable DRACIE ., DR HUA Consulting Unavailable HOY ., [...] Unavailable DARCIE ., DR HUA Admitting Unavailable DOTHAN, DR ROSSANA Teague Consulting Unavailable HOY ., [...] Unavailable HOY ., DR MORENO Admitting Unavailable DOTHAN, DR ROSSANA Teague Consulting Unavailable REID JORGE Attending Unavailable Allergies Allergy Classification Reported Allergen(s) Allergy Type Date of Onset Reaction(s) Facility (2 sources) Fluconazole Drug Allergy 06-23-2021 [facility] Repository (1 source) levoFLOXacin Drug Allergy [facility] Repository Problems Active Problems Problem Classification Problem [...] 07-03-2022 Episodic Other aftercare (1 source) 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 Admission #: [id number] Family : Order #: [id number] CLICK HERE TO VIEW EXAM RADIOLOGY REPORT [...] Compressibility: Normal. Flow: Moderate deep venous reflux. Dumping Machine Operator: None. Tech Note: Incompetent varicose vein lateral [...] MD on 10/30/2022 at 12:59 Normal [facility] CBC AUTO DIFFon 07-04-2022 BASO # 0.1 103/ul Normal 0.0-0.1 [facility] Comment on above: Performed By: #### T SH #### [facility] [address] [place] [address] Dr. Marlene Blanton Basophils/100 WBC (Bld) 0.6 % Normal 0.2-2.0 [facility] Comment on above: Performed By: #### T SH #### [facility] [address] [place] [address] Dr. Marlene Blanton EO # 0.0 103/ul Normal 0.0-0.7 [facility] Comment on above: Performed By: #### T SH #### [facility] [address] [place] [address] Dr. Marlene Blanton Eosinophils/100 WBC (Bld) 0.0 % Critically low 0.9-7.0 [facility] Comment on above: Performed By: #### T SH #### [facility] [address] [place] [address] Dr. Marlene Blanton Erythrocyte distribution width (RBC) [Ratio] 13.3 % Normal 11.0-15.0 [facility] Comment on above: Performed By: #### T SH #### [facility] [address] [place] [address] Dr. Marlene Blanton Hematocrit (Bld) [Volume fraction] 42.3 % Normal 36.0-48.0 [facility] Comment on above: Performed By: #### T SH #### [facility] [address] [place] [address] Dr. Marlene Blanton Hemoglobin (Bld) [Mass/Vol] 13.0 g/dL Normal 12.0-16.0 [facility] Comment on above: Performed By: #### T SH #### [facility] [address] [place] [address] Dr. Marlene Blanton IG # 0.04 10e3/ul Critically high 0.00-0.03 [place] Comment on above: Performed By: #### T SH #### [facility] [address] [place] [address] Dr. Marlene Blanton IG % 0.4 % Normal 0.0-0.5 [facility] Comment on above: Performed By: #### T SH #### [facility] [address] [place] [address] Dr. Marlene Blanton LYMPH # 2.0 103/ul Normal 1.2-3.8 [facility] Comment on above: Performed By: #### T SH #### [facility] [address] [place] [address] Dr. Marlene Blanton Lymphocytes/100 WBC (Bld) 19.0 % Critically low 20.5-60.0 [facility] Comment on above: Performed By: #### T SH #### [facility] [address] [place] [address] Dr. Marlene Blanton MANUAL DIFF REQ NO Normal [facility] Comment on above: Performed By: #### T SH #### [facility] [address] [place] [address] Dr. Marlene Blanton MCH (RBC) [Entitic mass] 29.6 pg Normal 26.7-34.0 [facility] Comment on above: Performed By: #### T SH #### [facility] [address] [place] [address] Dr. Marlene Blanton MCHC (RBC) [Mass/Vol] 30.7 g/dL Normal 29.9-35.2 [facility] Comment on above: Performed By: #### T SH #### [facility] [address] [place] [address] Dr. Marlene Blanton MCV (RBC) [Entitic vol] 96.4 fL Normal 81.0-99.0 [facility] Comment on above: Performed By: #### T SH #### [facility] [address] [place] [address] Dr. Malrene Blanton MONO # 0.7 103/ul Normal 0.3-0.8 [facility] Comment on above: Performed By: #### T SH #### [facility] [address] [place] [address] Dr. Marlene Blanton Monocytes/100 WBC (Bld) 6.6 % Normal 1.7-12.0 [facility] Comment on above: Performed By: #### T SH #### [facility] [address] [place] [address] Dr. Marlene Blanton NEUT # 7.7 103/ul Critically high 1.4-6.5 [facility] Comment on above: Performed By: #### T SH #### [facility] [address] [place] [address] Dr. Marlene Blanton Neutrophils/100 WBC (Bld) 73.4 % Normal 43.0-75.0 [facility] Comment on above: Performed By: #### T SH #### [facility] [address] [place] [address] Dr. Marlene Blanton Platelet mean volume (Bld) [Entitic vol] 8.9 fL Critically low 9.5-13.5 [facility] Comment on above: Performed By: #### T SH #### [facility] [address] [place] [address] Dr. Marlene Blanton PLT 288 103/ul Normal 150-450 [facility] Comment on above: Performed By: #### T SH #### [facility] [address] [place] [address] Dr. Marlene Blanton RBC 4.39 106/ul Normal 4.20-5.40 [facility] Comment on above: Performed By: #### T SH #### [facility] [address] [place] [address] Dr. Marlene Blanton WBC 10.5 103/ul Normal 4.0-11.0 [facility] Comment on above: Performed By: #### T SH #### [facility] [address] [place] [address] Dr. Marlene Blanton FREE T4on 07-04-2022 Free T4 [Mass/Vol] 0.98 ng/dL Normal 0.76-1.[address] [facility] Comment on above: Performed By: #### F T4 #### [facility] [address] [place] [address] Dr. Marlene Blanton PROTIMEon 07-04-2022 INR Coag (PPP) [Relative time] 0.95 {INR} Normal [facility] Comment on above: Performed By: #### P T, PTT #### [facility] [address] [place] [address] Dr. Marlene Blanton INR GUIDELINES SEE BELOW Normal [facility] Comment on above: Result Comment: GLEN RED INR: 2.0 - 3.0 CONDITIONS NOT LISTED BELOW 2.5 - 3.5 FOR PROSTHETIC HEART VALVE REPLACEMENT 2.5 - 3.5 RECURRENT THROMBOSIS Performed By: #### P T, PTT #### [facility] [address] [place] [address] Dr. Marlene Blanton PT Coag (PPP) [Time] 10.1 s Normal 9.0-11.6 [facility] Comment on above: Performed By: #### P T, PTT #### [facility] [address] [place] [address] Dr. Marlene Blanton PTTon 07-04-2022 aPTT Coag (Bld) [Time] 27.2 s Normal 22.3-36.2 [facility] Comment on above: Performed By: #### P T, PTT #### [facility] [address] [place] [address] Dr. Marlene Blanton TSHon 07-04-2022 TSH 1.916 uIU/mL Normal 0.358-3.740 [facility] Comment on above: Performed By: #### T SH #### [facility] [address] [place] [address] Dr. Marlene Blanton BUNon 06-21-2022 Urea nitrogen [Mass/Vol] 8.0 mg/dL Normal 7.0-18.0 [facility] Comment on above: Performed By: #### C BC #### [facility] [address] [place] [address] Dr. Marlene Blanton CBC AUTO DIFFon 06-21-2022 BASO # 0.0 103/ul Normal 0.0-0.1 [facility] Comment on above: Performed By: #### T SH #### [facility] [address] [place] [address] Dr. Marlene Blanton Basophils/100 WBC (Bld) 0.2 % Normal 0.2-2.0 [facility] Comment on above: Performed By: #### T SH #### [facility] [address] [place] [address] Dr. Marlene Blanton EO # 0.0 103/ul Normal 0.0-0.7 [facility] Comment on above: Performed By: #### T SH #### [facility] [address] [place] [address] Dr. Marlene Blanton Eosinophils/100 WBC (Bld) 0.1 % Critically low 0.9-7.0 [facility] Comment on above: Performed By: #### T SH #### [facility] [address] [place] [address] Dr. Marlene Blanton Erythrocyte distribution width (RBC) [Ratio] 13.4 % Normal 11.0-15.0 [facility] Comment on above: Performed By: #### T SH #### [facility] [address] [place] [address] Dr. Marlene Blanton Hematocrit (Bld) [Volume fraction] 33.6 % Critically low 36.0-48.0 [facility] Comment on above: Performed By: #### T SH #### [facility] [address] [place] [address] Dr. Marlene Blanton Hemoglobin (Bld) [Mass/Vol] 10.8 g/dL Critically low 12.0-16.0 [facility] Comment on above: Result Comment: post surgery Performed By: #### T SH #### [facility] [address] [place] [address] Dr. Marlene Blanton IG # 0.06 10e3/ul Critically high 0.00-0.03 [place] Comment on above: Performed By: #### T SH #### [facility] [address] [place] [address] Dr. Marlene Blanton IG % 0.5 % Normal 0.0-0.5 [facility] Comment on above: Performed By: #### T SH #### [facility] [address] [place] [address] Dr. Marlene Blanton LYMPH # 2.0 103/ul Normal 1.2-3.8 [facility] Comment on above: Performed By: #### T SH #### [facility] [address] [place] [address] Dr. Marlene Blanton Lymphocytes/100 WBC (Bld) 16.1 % Critically low 20.5-60.0 [facility] Comment on above: Performed By: #### T SH #### [facility] [address] [place] [address] Dr. Marlene Blanton MANUAL DIFF REQ NO Normal [facility] Comment on above: Performed By: #### T SH #### [facility] [address] [place] [address] Dr. Marlene Blanton MCH (RBC) [Entitic mass] 29.0 pg Normal 26.7-34.0 [facility] Comment on above: Performed By: #### T SH #### [facility] [address] [place] [address] Dr. Marlene Blanton MCHC (RBC) [Mass/Vol] 32.1 g/dL Normal 29.9-35.2 [facility] Comment on above: Performed By: #### T SH #### [facility] [address] [place] [address] Dr. Marlene Blanton MCV (RBC) [Entitic vol] 90.1 fL Normal 81.0-99.0 [facility] Comment on above: Performed By: #### T SH #### [facility] [address] [place] [address] Dr. Marlene Blanton MONO # 0.7 103/ul Normal 0.3-0.8 [facility] Comment on above: Performed By: #### T SH #### [facility] [address] [address] [address] Marlene Blanton Monocytes/100 WBC (Bld) 5.3 % Normal 1.7-12.0 [facility] Comment on above: Performed By: #### T SH #### [facility] [address] [address] [address] Marlene Blanton NEUT # 9.7 103/ul Critically high 1.4-6.5 [facility] Comment on above: Performed By: #### T SH #### [facility] [address] [address] [address] Marlene Blanton Neutrophils/100 WBC (Bld) 77.8 % Critically high 43.0-75.0 [facility] Comment on above: Performed By: #### T SH #### [facility] [address] [place] [address] Dr. Marlene Blanton Platelet mean volume (Bld) [Entitic vol] 8.5 fL Critically low 9.5-13.5 [facility] Comment on above: Performed By: #### T SH #### [facility] [address] [place] [address] Dr. Marlene Blanton PLT 248 103/ul Normal 150-450 [facility] Comment on above: Performed By: #### T SH #### [facility] [address] [place] [address] Dr. Marlene Blanton RBC 3.73 106/ul Critically low 4.20-5.40 [facility] Comment on above: Performed By: #### T SH #### [facility] [address] [place] [address] Dr. Marlene Blanton WBC 12.4 103/ul Critically high 4.0-11.0 [facility] Comment on above: Performed By: #### T SH #### [facility] [address] [place] [address] Dr. Marlene Blanton CREATININEon 06-21-2022 Creatinine [Mass/Vol] 0.87 mg/dL Normal 0.55-1.02 [facility] Comment on above: Performed By: #### C BC #### [facility] [address] [place] [address] Dr. Marlene Blanton EGFR-AF PALESTINIAN >60 Normal >=60 [facility] Comment on above: Performed By: #### C BC #### [facility] [address] [place] [address] Dr. Marlene Blanton EGFR-NON AF PALESTINIAN >60 Normal >=60 [facility] Comment on above: Performed By: #### C BC #### [facility] [address] [place] [address] Dr. Marlene Blanton CBC AUTO DIFFon 06-19-2022 BASO # 0.1 103/ul Normal 0.0-0.1 [facility] Comment on above: Performed By: #### C BC #### [facility] [address] [place] [address] Dr. Marlene Blanton Basophils/100 WBC (Bld) 0.5 % Normal 0.2-2.0 [facility] Comment on above: Performed By: #### C BC #### [facility] [address] [place] [address] Dr. Marlene Blanton EO # 0.0 103/ul Normal 0.0-0.7 [facility] Comment on above: Performed By: #### C BC #### [facility] [address] [place] [address] Dr. Marlene Blanton Eosinophils/100 WBC (Bld) 0.1 % Critically low 0.9-7.0 [facility] Comment on above: Performed By: #### C BC #### [facility] [address] [place] [address] Dr. Marlene Blanton Erythrocyte distribution width (RBC) [Ratio] 13.4 % Normal 11.0-15.0 [facility] Comment on above: Performed By: #### C BC #### [facility] [address] [place] [address] Dr. Marlene Blanton Hematocrit (Bld) [Volume fraction] 39.8 % Normal 36.0-48.0 [facility] Comment on above: Performed By: #### C BC #### [facility] [address] [place] [address] Dr. Marlene Blanton Hemoglobin (Bld) [Mass/Vol] 13.2 g/dL Normal 12.0-16.0 [facility] Comment on above: Performed By: #### C BC #### [facility] [address] [place] [address] Dr. Marlene Blanton IG # 0.05 10e3/ul Critically high 0.00-0.03 [place] Comment on above: Performed By: #### C BC #### [facility] [address] [place] [address] Dr. Marlene Blanton IG % 0.5 % Normal 0.0-0.5 [facility] Comment on above: Performed By: #### C BC #### [facility] [address] [place] [address] Dr. Marlene Blanton LYMPH # 2.4 103/ul Normal 1.2-3.8 [facility] Comment on above: Performed By: #### C BC #### [facility] [address] [place] [address] Dr. Marlene Blanton Lymphocytes/100 WBC (Bld) 24.7 % Normal 20.5-60.0 [facility] Comment on above: Performed By: #### C BC #### [facility] [address] [place] [address] Dr. Marlene Blanton MANUAL DIFF REQ NO Normal [facility] Comment on above: Performed By: #### C BC #### [facility] [address] [place] [address] Dr. Marlene Blanton MCH (RBC) [Entitic mass] 29.7 pg Normal 26.7-34.0 [facility] Comment on above: Performed By: #### C BC #### [facility] [address] [place] [address] Dr. Marlene Blanton MCHC (RBC) [Mass/Vol] 33.2 g/dL Normal 29.9-35.2 [facility] Comment on above: Performed By: #### C BC #### [facility] [address] [place] [address] Dr. Marlene Blanton MCV (RBC) [Entitic vol] 89.4 fL Normal 81.0-99.0 [facility] Comment on above: Performed By: #### C BC #### [facility] [address] [place] [address] Dr. Marlene Blanton MONO # 0.8 103/ul Normal 0.3-0.8 [facility] Comment on above: Performed By: #### C BC #### [facility] [address] [place] [address] Dr. Marlene Blanton Monocytes/100 WBC (Bld) 7.9 % Normal 1.7-12.0 [facility] Comment on above: Performed By: #### C BC #### [facility] [address] [place] [address] Dr. Marlene Blanton NEUT # 6.3 103/ul Normal 1.4-6.5 [facility] Comment on above: Performed By: #### C BC #### [facility] [address] [place] [address] Dr. Marlene Blanton Neutrophils/100 WBC (Bld) 66.3 % Normal 43.0-75.0 [facility] Comment on above: Performed By: #### C BC #### [facility] [address] [place] [address] Dr. Marlene Blanton Platelet mean volume (Bld) [Entitic vol] 8.3 fL Critically low 9.5-13.5 [facility] Comment on above: Performed By: #### C BC #### [facility] [address] [place] [address] Dr. Marlene Blanton PLT 300 103/ul Normal 150-450 [facility] Comment on above: Performed By: #### C BC #### [facility] [address] [place] [address] Dr. Marlene Blanton RBC 4.45 106/ul Normal 4.20-5.40 [facility] Comment on above: Performed By: #### C BC #### [facility] [address] [place] [address] Dr. Marlene Blanton WBC 9.6 103/ul Normal 4.0-11.0 [facility] Comment on above: Performed By: #### C BC #### [facility] [address] [address] [address] Marlene Blanton PREG QUANT HCGon 06-19-2022 HCG QUANT 1 mIU/mL Normal [facility] Comment on above: Performed By: #### P REGQNT #### [facility] [address] [place] [address] Dr. Marlene Blanton HCG RANGE SEE BELOW Normal [facility] Comment on above: Result Comment: 5-50 0.2-1 WEEK 50-500 1-2 WEEKS 100-5,000 2-3 WEEKS 500-10,000 3-4 WEEKS 1,000-50,000 4-5 WEEKS 10,000-100,000 5-6 WEEKS 15,000-200,000 6-8 WEEKS 10,000-100,000 2-3 MONTHS Performed By: #### P REGQNT #### [facility] [address] [place] [address] Dr. Marlene Blanton TYPE AND SCREENon 06-19-2022 TYPE AND SCREEN Negative Normal [facility] Comment on above: Performed By: #### C BC #### [facility] [address] [place] [address] Dr. Marlene Blanton ASYMPTOMATIC COVID-19 ANTIGE Non 05-28-2022 EUA Statement SEE BELOW Normal [facility] Comment on above: Result Comment: This [...] sooner. Performed By: #### C BC #### [facility] [address] [place] [address] Dr. Marlene Blanton SARS-CoV-2 (COVID-19) RNA [place]+probe Ql (Unsp spec) Positive Critically abnormal NEGATIVE [facility] Comment on above: Result Comment: SARS -CoV-2 antigen present; does not rule out coinfection with other pathogens. Performed By: #### C BC #### [facility] [address] [place] [address] Dr. Marlene Blanton [facility] SARS-CoV-2 (COVID-19) RNA [place]+probe Ql (Unsp spec) Detected Critically abnormal NOT DETECTED [facility] Comment on above: Result Comment: This test is not yet approved or cleared by the [place] FDA. When there are no FDA-approved or cleared tests available, and other criteria are met, FDA can make tests available under an emergency access mechanism called an Emergency Use Authorization (EUA). The EUA for this test is supported by the Hyper[employer] Diver of Health and Human Service's declaration that [...] used). Performed By: #### C VDTB #### [facility] [address] [place] [address] Dr. Marlene Blanton PAP ACOG PANEL 2: 30 to 65on 05-15-2022 . . Normal [facility] Comment on above: Result Comment: Perf ormed at: WB Performed By: #### [id number] #### [facility] [address] [place] [address] Dr. Marlene Blanton Age Gdln ACOG Testing 30-65 [facility] Comment on above: Performed By: #### [id number] #### [facility] [address] [place] [address] Dr. Marlene Blanton DIAGNOSIS: Comment Normal [facility] Comment on above: Result Comment: NEGA TIVE FOR INTRAEPITHELIAL LESION OR MALIGNANCY. FUNGAL ORGANISMS MORPHOLOGICALLY CONSISTENT WITH BAILEY SPECIES ARE PRESENT. Performed at: WB Performed By: #### [id number] #### [facility] [address] [place] [address] Dr. Marlene Blanton HPV Aptima Negative Normal Negative [facility] Comment on above: Result Comment: This nucleic acid amplification test detects fourteen high-risk HPV types (16,18,31,33,35,39,45,51,52,56,58,59,66,68) without differentiation. Performed at: =G Performed By: #### [id number] #### [facility] [address] [place] [address] Dr. Marlene Blanton HPV Genotype Reflex Comment Normal [facility] Comment on above: Result Comment: Crit eria not met, HPV Genotype not performed. Performed at: WB Performed By: #### [id number] #### [facility] [address] [place] [address] Dr. Marlene Blanton Methodology: Comment Normal [facility] Comment on above: Result Comment: This liquid based ThinPrep(R) pap test was screened with the use of an image guided system. Performed at: WB Performed By: #### [id number] #### [facility] [address] [place] [address] Dr. Marlene Blanton Note: Comment Normal [facility] Comment on above: Result Comment: The Pap smear is a screening test designed to aid in the detection of premalignant and malignant conditions of the uterine cervix. It is not a diagnostic procedure and should not be used as the sole means of detecting cervical cancer. Both false-positive and false-negative reports do occur. . Performed at: WB Performed By: #### [id number] #### [facility] [address] [place] [address] Dr. Marlene Blanton Performed by: Comment Normal [facility] Comment on above: Result Comment: Marycruz Gillespie Molder Bench (ASCP) Performed at: WB Performed By: #### [id number] #### [facility] [address] [place] [address] Dr. Marlene Blanton Specimen adequacy: Comment Normal [facility] Comment on above: Result Comment: Sati sfactory for evaluation. No endocervical component is identified. Performed at: WB Performed By: #### [id number] #### [facility] [address], [place] [address] Dr. Marlene Blanton MG MAMM SCREEN 3D JENNIFER CADon 05-14-2022 MG MAMM SCREEN 3D JENNIFER CAD Patient: ELIZA COELLO Exam Date: 05/14/2022 : 1970 Gender:F Ordering : DR JAVID WATSON . Admission #: [id number] Family : DR JOSH HONG . Order #: [id number] CLICK HERE TO VIEW EXAM RADIOLOGY REPORT [...] melanoma cancer at age 19. LOCATION: [facility] BREAST COMPOSITION: Heterogeneously dense,which may obscure small [...] M.D. on 05/14/2022 at 14:48 Normal [facility] US PELVIS AND TRANSVAGon US PELVIS AND [...] ROSSANA VELÁSQUEZ Date: 2022-05-09 13:04 Normal [facility] CBC AUTO DIFFon 05-08-2022 BASO # 0.1 103/ul Normal 0.0-0.1 [facility] Comment on above: Performed By: #### T SH #### [facility] [address] [place] [address] Dr. Marlene Blanton Basophils/100 WBC (Bld) 0.7 % Normal 0.2-2.0 [facility] Comment on above: Performed By: #### T SH #### [facility] [address] [place] [address] Dr. Marlene Blanton EO # 0.0 103/ul Normal 0.0-0.7 [facility] Comment on above: Performed By: #### T SH #### [facility] [address] [place] [address] Dr. Marlene Blanton Eosinophils/100 WBC (Bld) 0.0 % Critically low 0.9-7.0 [facility] Comment on above: Performed By: #### T SH #### [facility] [address] [place] [address] Dr. Marlene Blanton Erythrocyte distribution width (RBC) [Ratio] 13.4 % Normal 11.0-15.0 [facility] Comment on above: Performed By: #### T SH #### [facility] [address] [place] [address] Dr. Marlene Blanton Hematocrit (Bld) [Volume fraction] 42.1 % Normal 36.0-48.0 [facility] Comment on above: Performed By: #### T SH #### [facility] [address] [place] [address] Dr. Marlene Blanton Hemoglobin (Bld) [Mass/Vol] 13.8 g/dL Normal 12.0-16.0 [facility] Comment on above: Performed By: #### T SH #### [facility] [address] [place] [address] Dr. Marlene Blanton IG # 0.04 10e3/ul Critically high 0.00-0.03 [place] Comment on above: Performed By: #### T SH #### [facility] [address] [place] [address] Dr. Marlene Blanton IG % 0.4 % Normal 0.0-0.5 [facility] Comment on above: Performed By: #### T SH #### [facility] [address] [place] [address] Dr. Marlene Blanton LYMPH # 2.1 103/ul Normal 1.2-3.8 [facility] Comment on above: Performed By: #### T SH #### [facility] [address] [place] [address] Dr. Marlene Blanton Lymphocytes/100 WBC (Bld) 23.3 % Normal 20.5-60.0 [facility] Comment on above: Performed By: #### T SH #### [facility] [address] [place] [address] Dr. Marlene Blanton MANUAL DIFF REQ NO Normal [facility] Comment on above: Performed By: #### T SH #### [facility] [address] [place] [address] Dr. Marlene Blanton MCH (RBC) [Entitic mass] 29.3 pg Normal 26.7-34.0 [facility] Comment on above: Performed By: #### T SH #### [facility] [address] [place] [address] Dr. Marlene Blanton MCHC (RBC) [Mass/Vol] 32.8 g/dL Normal 29.9-35.2 [facility] Comment on above: Performed By: #### T SH #### [facility] [address] [place] [address] Dr. Marlene Blanton MCV (RBC) [Entitic vol] 89.4 fL Normal 81.0-99.0 [facility] Comment on above: Performed By: #### T SH #### [facility] [address] [place] [address] Dr. Marlene Blanton MONO # 0.7 103/ul Normal 0.3-0.8 [facility] Comment on above: Performed By: #### T SH #### [facility] [address] [place] [address] Dr. Marlene Blanton Monocytes/100 WBC (Bld) 7.3 % Normal 1.7-12.0 [facility] Comment on above: Performed By: #### T SH #### [facility] [address] [place] [address] Dr. Marlene Blanton NEUT # 6.1 103/ul Normal 1.4-6.5 [facility] Comment on above: Performed By: #### T SH #### [facility] [address] [place] [address] Dr. Marlene Blanton Neutrophils/100 WBC (Bld) 68.3 % Normal 43.0-75.0 [facility] Comment on above: Performed By: #### T SH #### [facility] [address] [place] [address] Dr. Marlene Blanton Platelet mean volume (Bld) [Entitic vol] 8.8 fL Critically low 9.5-13.5 [facility] Comment on above: Performed By: #### T SH #### [facility] [address] [place] [address] Dr. Marlene Blanton PLT 310 103/ul Normal 150-450 [facility] Comment on above: Performed By: #### T SH #### [facility] [address] [place] [address] Dr. Marlene Blanton RBC 4.71 106/ul Normal 4.20-5.40 [facility] Comment on above: Performed By: #### T SH #### [facility] [address] [place] [address] Dr. Marlene Blanton WBC 9.0 103/ul Normal 4.0-11.0 [facility] Comment on above: Performed By: #### T SH #### [facility] [address] [place] [address] Dr. Marlene Blanton FREE T4on 05-08-2022 Free T4 [Mass/Vol] 1.09 ng/dL Normal 0.76-1.[address] [facility] Comment on above: Performed By: #### T SH #### [facility] [address] [place] [address] Dr. Marlene Blanton PREG QUANT HCGon 05-08-2022 HCG QUANT 1 mIU/mL Normal [facility] Comment on above: Performed By: #### T SH, PREGQNT #### [facility] [address] [place] [address] Dr. Marlene Blanton HCG RANGE SEE BELOW Normal [facility] Comment on above: Result Comment: 5-50 0.2-1 WEEK 50-500 1-2 WEEKS 100-5,000 2-3 WEEKS 500-10,000 3-4 WEEKS 1,000-50,000 4-5 WEEKS 10,000-100,000 5-6 WEEKS 15,000-200,000 6-8 WEEKS 10,000-100,000 2-3 MONTHS Performed By: #### T SH, PREGQNT #### [facility] [address] [place] [address] Dr. Marlene Blanton PROTIMEon 05-08-2022 INR Coag (PPP) [Relative time] 0.95 {INR} Normal [facility] Comment on above: Performed By: #### C BC #### [facility] [address] [place] [address] Dr. Marlene Blanton INR GUIDELINES SEE BELOW Normal [facility] Comment on above: Result Comment: GLEN RED INR: 2.0 - 3.0 CONDITIONS NOT LISTED BELOW 2.5 - 3.5 FOR PROSTHETIC HEART VALVE REPLACEMENT 2.5 - 3.5 RECURRENT THROMBOSIS Performed By: #### C BC #### [facility] [address] [place] [address] Dr. Marlene Blanton PT Coag (PPP) [Time] 10.3 s Normal 9.0-11.6 [facility] Comment on above: Performed By: #### C BC #### [facility] [address] [place], [place] [id number] Dr. Marlene Blanton PTTon 05-08-2022 aPTT Coag (Bld) [Time] 26.3 s Normal 22.3-36.2 [facility] Comment on above: Performed By: #### C BC #### [facility] [address] [place] [address] Dr. Marlene Blanton TSHon 05-08-2022 TSH 4.001 uIU/mL Critically high 0.358-3.740 [facility] Comment on above: Performed By: #### T SH, PREGQNT #### [facility] [address] [place] [address] Dr. Marlene Blanton Reminderson 06-01-2020 Reminders - From: Jesenia Price LPN To: N - Clinical; Sent: 06/01/2020 08:20:44 EST Show up: 04/24/2030 09:00:00 EDT Subject: colonoscopy recall Due Date/Time: 05/24/2030 09:00:00 EST Reminder/Recall Patient is due for screening colonoscopy 05/24/2030. Normal [facility] Ambulatory Clinical Summaryo n 05-31-2020 Ambulatory Clinical Summary {[id number]}CD:[id number] Normal [facility] General Surgery Office/Clini c Noteon 05-31-2020 General [...] Salguero Only if needed [address] [place] [address]- Additional Instructions: Problem List/Past Medical [...] malignant neoplasm of female breast: Mother. Normal [facility] Comment on above: Result Comment: Elec tronically Signed By: GABRIEL LAUREN, Corby Salguero\.layla\Date and Time Signed: 05/31/20 16:31 EST Pathology Noteon 05-29-2020 Pathology Note [id number] .00CD:127 Normal [facility] Outside Colonoscopyon 2019 Outside Colonoscopy [id number] .00CD:127 Normal [facility] Lab Reportson 05-25-2020 Lab Reports [id number] .00CD:127 Normal [facility] Provider Letter FTMCon 05-12 Provider Letter [facility] Josh Hong, [facility] [place] [address] Re: ELIZA COELLO Date of : 1970 Thank you for your referral of Eliza Coello who was seen on consultation on May 09, 2020, for rectal bleeding, abdominal pain with bowel movements. A colonoscopy is ordered for further evaluation. I will be happy to follow Eliza. Sincerely, Corby Buitrago MD General Surgery [facility] Ambulatory Clinical Summaryo n 05-09-2020 Ambulatory Clinical Summary {[id number]}CD:[id number] [facility] General Surgery Office/Clini c Noteon 05-09-2020 General [...] available Patient Education Exercise to Stay Healthy, [id number] Problem List/Past Medical History Ongoing Abdominal pain, [...] Primary malignant neoplasm of female breast: Mother. [facility] Comment on above: Result Comment: Xavier roy [...] Document Reviewed: 07/12/2011 ExitCare? Patient Information ?2013 [employer]. [facility] Physician Referralon 020 Physician Referral [id number] .00CD:127 [facility] Encounters Encounter Date Encounter Type Care Provider Facility Start: 05-14-2023 End: 05-14-2023 ambulatory REID JORGE Not Available Start: 10-30-2022 End: 10-31-[address] JOSH HONG . Facility:[facility] Start: 07-04-2022 End: 07-05-[address] JAVID WATSON . Facility:[facility] Start: 06-21-2022 Encounter for prepro cedural laboratory examination DR JAVID WATSON . [facility] Start: 06-20-2022 End: 06-21-[address] JAVID WATSON . Facility:[facility] Start: 06-19-2022 Encounter for prepro cedural cardiovascular examination DR JAVID WATSON . [facility] Start: 06-19-2022 End: 06-20-[address] JAVID [...] Facility:[facility] Payers Date Payer Category Payer Unknown [id number] .16.84 [id number] 1970 Unknown [id number] .16.84 [id number] 1970 Unknown [id number] 2.16.84 [id number] 1970 Unknown [id number] 2.16.84 [id number] 1970 Unknown [id number] 2.16.84 [id number] 1970 Unknown [id number] 2.16.84 [id number] 1970 Unknown [id number] 2.16.84 [id number] 1970 Unknown [id number] 2.16.84 0.1.887992.3.579.2.593 1970 Unknown [id number] 2.16.84 [id number] 1970 Unknown [id number] 2.16.84 [id number] 1970 Unknown [id number] 2.16.84 [id number] 1970 Unknown [id number] 2.16.840 .1.096412.3.579.2.1259 1960 Unknown [id number] Clinical Note 06-20-2022 Note Date & Type Note Facility 06-20-2022 Note OPERATIVE NOTE OPERATION DATE: 06/20/2022 PROCEDURE: vNOTES hysterectomy with cystoscopy and bilateral salpingectomy. PREOPERATIVE DIAGNOSIS: Pelvic pressure, menorrhagia, dysmenorrhea, dyspareunia. POSTOPERATIVE DIAGNOSIS: Pelvic pressure, menorrhagia, dysmenorrhea, dyspareunia. ANESTHESIA: General. SURGEON: Javid Watson M.D. SUBMARINE WORKER: PIYUSH Howell URINE OUTPUT: Yellow and clear. [...] uterosacral ligaments in a satisfactory manner. The Rodriguez catheter was removed and the patient was awakened and taken recovery in excellent condition. Sponge, lap, needle counts correct x2. [facility] Summary Purpose Family History No Family History Records FoundNo Family History Records FoundNo Family History Records Found Advance Directives No Advanced Directives Records FoundNo Advanced Directives Records FoundNo Advanced Directives Records Found Additional Source Comments INFORMATION SOURCE (unrecogn ized section and content) DATE CREATED AUTHOR [facility]/2020 [facility] DATE CREATED AUTHOR AUTHOR'S ORGANIZ ATION 11/03/2022 [facility] DATE CREATED AUTHOR AUTHOR'S ORGANIZ ATION 05/16/2023 [facility] FOR RECORDS PERTAINING TO PATIENTS WHO ARE [...] BE BASED ON THE PRIMARY CLINICAL RECORDS. [facility] [employer] [facility]. provides no warranty or guarantee of the accuracy or completeness of information in this document.
== END 2023-06-20 09:12 | disposition home or self-care (01) ==
PROVIDERS: PCP Family Medicine; Visit Provider Family Medicine
DX: G43.909 Migraine, unspecified, not intractable, without status migrainosus (principal)
CPT/HCPCS: 70551

== ENCOUNTER 2023-08-04 11:50 | Outpatient (OUT) | payer OTHER, SELFPAY ==
--- OUTSIDE RECORDS SUMMARY | 2023-08-04 11:52 | XMS_ITS | CCD ---
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 Name Role Phone DARCIE ., DR HUA [...] DR HUA Consulting Unavailable HOY ., DR MROENO Primary Care Unavailable DARCIE ., DR HUA Attending Unavailable DARCIE ., DR HUA Admitting Unavailable DYLAN, JOAN Consulting Unavailable DIANE ., DR MORENO Primary Care Unavailable DYLAN, JOAN Attending Unavailable DYLAN, JOAN Admitting Unavailable DYLAN, JOAN Consulting Unavailable HOPaloma ., DR MORENO Primary Care Unavailable DYLAN, JOAN Attending Unavailable DYLAN, JOAN Admitting Unavailable DARCIE ., DR HUA Consulting Unavailable HOY ., DR MORENO Primary Care Unavailable DARCIE ., DR HUA Attending Unavailable DARCIE ., DR HUA Admitting Unavailable [place], DR ROSSANA Teague Consulting Unavailable HOY ., DR MORENO Primary Care Unavailable DARCIE ., DR HUA Attending Unavailable DARCIE ., DR HUA Admitting Unavailable DARCIE ., DR HUA Consulting Unavailable DARCIE ., DR HUA Consulting Unavailable HOY ., DR MORENO Primary Care Unavailable DARCIE ., DR HUA Attending Unavailable DARCIE ., DR HUA Admitting Unavailable KATRINA, DR CHEIKH Salguero Consulting Unavailable DIANE ., DR MORENO Consulting Unavailable DIANE ., DR MORENO Primary Care Unavailable ANTHONYY ., DR MORENO Attending Unavailable HOY ., DR MORENO Admitting Unavailable [place], DR ROSSANA Teague Consulting Unavailable REID JORGE Attending Unavailable Allergies Allergy Classification Reported Allergen(s) Allergy Type Date of Onset Reaction(s) Facility (2 sources) Fluconazole Drug Allergy 06-23-2021 [facility] (1 source) levoFLOXacin Drug Allergy [facility] Problems Active Problems Problem Classification Problem [...] 07-03-2022 Episodic Other aftercare (1 source) Other retirement (current) drug therapy; 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 Admission #: [id number] Family : Order #: [id number] CLICK HERE TO VIEW EXAM RADIOLOGY REPORT [...] Compressibility: Normal. Flow: Moderate deep venous reflux. Master Craftsman: None. Tech Note: Incompetent varicose vein lateral [...] MD on 10/30/2022 at 12:59 Normal [facility] CBC AUTO DIFFon 07-04-2022 BASO # 0.1 103/ul Normal 0.0-0.[address] [facility] Comment on above: Performed By: #### T SH #### [facility] [address] [place] [address] Dr. Marlene Blanton Basophils/100 WBC (Bld) 0.6 % Normal 0.2-2.[address] [facility] Comment on above: Performed By: #### T SH #### [facility] [address] [place] [address] Dr. Marlene Blanton EO # 0.0 103/ul Normal 0.0-0.[address] [facility] Comment on above: Performed By: #### T SH #### [facility] [address] [place] [address] Dr. Marlene Blanton Eosinophils/100 WBC (Bld) 0.0 % Critically low 0.9-7.[address] [facility] Comment on above: Performed By: #### T SH #### [facility] [address] [place] [address] Dr. Marlene Blanton Erythrocyte distribution width (RBC) [Ratio] 13.3 % Normal 11.0-15.0 [facility] Comment on above: Performed By: #### T SH #### [facility] [address] [place] [address] Dr. Marlene Blanton Hematocrit (Bld) [Volume fraction] 42.3 % Normal 36.0-48.[address] [facility] Comment on above: Performed By: #### T SH #### [facility] [address] [place] [address] Dr. Marlene Blanton Hemoglobin (Bld) [Mass/Vol] 13.0 g/dL Normal 12.0-16.[address] [facility] Comment on above: Performed By: #### T SH #### [facility] [address] [place] [address] Dr. Marlene Blanton IG # 0.04 10e3/ul Critically high 0.00-0.03 [facility] Comment on above: Performed By: #### T SH #### [facility] [address] [place] [address] Dr. Marlene Blanton IG % 0.4 % Normal 0.0-0.[address] [facility] Comment on above: Performed By: #### T SH #### [facility] [address] [place] [address] Dr. Marlene Blanton LYMPH # 2.0 103/ul Normal 1.2-3.[address] [facility] Comment on above: Performed By: #### T SH #### [facility] [address] [place] [address] Dr. Marlene Blanton Lymphocytes/100 WBC (Bld) 19.0 % Critically low 20.5-60.[address] [facility] Comment on above: Performed By: #### T SH #### [facility] [address] [place] [address] Dr. Marlene Blanton MANUAL DIFF REQ NO Normal [facility] Comment on above: Performed By: #### T SH #### [facility] [address] [place] [address] Dr. Marlene Blanton MCH (RBC) [Entitic mass] 29.6 pg Normal 26.7-34.[address] [facility] Comment on above: Performed By: #### T SH #### [facility] [address] [place] [address] Dr. Marlene Blanton MCHC (RBC) [Mass/Vol] 30.7 g/dL Normal 29.9-35.2 [facility] Comment on above: Performed By: #### T SH #### [facility] [address] [place] [address] Dr. Marlene Blanton MCV (RBC) [Entitic vol] 96.4 fL Normal 81.0-99.[address] [facility] Comment on above: Performed By: #### T SH #### [facility] [address] [place] [address] Dr. Marlene Blanton MONO # 0.7 103/ul Normal 0.3-0.8 [facility] Comment on above: Performed By: #### T SH #### [facility] [address] [place] [address] Dr. Marlene Blanton Monocytes/100 WBC (Bld) 6.6 % Normal 1.7-12.0 [facility] Comment on above: Performed By: #### T SH #### [facility] [address] [place] [address] Dr. Marlene Blanton NEUT # 7.7 103/ul Critically high 1.4-6.[address] [facility] Comment on above: Performed By: #### T SH #### [facility] [address] [place] [address] Dr. Marlene Blanton Neutrophils/100 WBC (Bld) 73.4 % Normal 43.0-75.0 [facility] Comment on above: Performed By: #### T SH #### [facility] [address] [place] [address] Dr. Marlene Blanton Platelet mean volume (Bld) [Entitic vol] 8.9 fL Critically low 9.5-13.[address] [facility] Comment on above: Performed By: #### T SH #### [facility] [address] [place] [address] Dr. Marlene Blanton PLT 288 103/ul Normal 150-450 [facility] Comment on above: Performed By: #### T SH #### [facility] [address] [place] [address] Dr. Marlene Blanton RBC 4.39 106/ul Normal 4.20-5.40 [facility] Comment on above: Performed By: #### T SH #### [facility] [address] [place] [address] Dr. Marlene Blanton WBC 10.5 103/ul Normal 4.0-11.0 [facility] Comment on above: Performed By: #### T SH #### [facility] [address] [place] [address] Dr. Marlene Blanton FREE T4on 07-04-2022 Free T4 [Mass/Vol] 0.98 ng/dL Normal 0.76-1.46 [facility] Comment on above: Performed By: #### F T4 #### [facility] [address] [place] [address] Dr. Mralene Blanton PROTIMEon 07-04-2022 INR Coag (PPP) [Relative time] 0.95 {INR} Normal [facility] Comment on above: Performed By: #### P T, PTT #### [facility] [address] [place] [address] Dr. Marlene Blanton INR GUIDELINES SEE BELOW Normal [facility] Comment on above: Result Comment: GLEN RED INR: 2.0 - 3.0 CONDITIONS NOT LISTED BELOW 2.5 - 3.5 FOR PROSTHETIC HEART VALVE REPLACEMENT 2.5 - 3.5 RECURRENT THROMBOSIS Performed By: #### P T, PTT #### [facility] [address] [place] [address] Dr. Marlene Blanton PT Coag (PPP) [Time] 10.1 s Normal 9.0-11.[address] [facility] Comment on above: Performed By: #### P T, PTT #### [facility] [address] [place] [address] Dr. Marlene Blanton PTTon 07-04-2022 aPTT Coag (Bld) [Time] 27.2 s Normal 22.3-36.[address] [facility] Comment on above: Performed By: #### P T, PTT #### [facility] [address] [place] [address] Dr. Marlene Blanton TSHon 07-04-2022 TSH 1.916 uIU/mL Normal 0.358-3.740 [facility] Comment on above: Performed By: #### T SH #### [facility] [address] [place] [address] Dr. Marlene Blanton BUNon 06-21-2022 Urea nitrogen [Mass/Vol] 8.0 mg/dL Normal 7.0-18.[address] [facility] Comment on above: Performed By: #### C BC #### [facility] [address] [place] [address] Dr. Marlene Blanton CBC AUTO DIFFon 06-21-2022 BASO # 0.0 103/ul Normal 0.0-0.[address] [facility] Comment on above: Performed By: #### T SH #### [facility] [address] [place] [address] Dr. Marlene Blanton Basophils/100 WBC (Bld) 0.2 % Normal 0.2-2.[address] [facility] Comment on above: Performed By: #### T SH #### [facility] [address] [place] [address] Dr. Marlene Blanton EO # 0.0 103/ul Normal 0.0-0.[address] [facility] Comment on above: Performed By: #### T SH #### [facility] [address] [place] [address] Dr. Marlene Blanton Eosinophils/100 WBC (Bld) 0.1 % Critically low 0.9-7.[address] [facility] Comment on above: Performed By: #### T SH #### [facility] [address] [place] [address] Dr. Marlene Blanton Erythrocyte distribution width (RBC) [Ratio] 13.4 % Normal 11.0-15.[address] [facility] Comment on above: Performed By: #### T SH #### [facility] [address] [place] [address] Dr. Marlene Blanton Hematocrit (Bld) [Volume fraction] 33.6 % Critically low 36.0-48.[address] [facility] Comment on above: Performed By: #### T SH #### [facility] [address] [place] [address] Dr. Marlene Blanton Hemoglobin (Bld) [Mass/Vol] 10.8 g/dL Critically low 12.0-16.[address] [facility] Comment on above: Result Comment: post surgery Performed By: #### T SH #### [facility] [address] [place] [address] Dr. Marlene Blanton IG # 0.06 10e3/ul Critically high 0.00-0.03 [facility] Comment on above: Performed By: #### T SH #### [facility] [address] [place] [address] Dr. Marlene Blanton IG % 0.5 % Normal 0.0-0.[address] [facility] Comment on above: Performed By: #### T SH #### [facility] [address] [place] [address] Dr. Marlene Blanton LYMPH # 2.0 103/ul Normal 1.2-3.[address] [facility] Comment on above: Performed By: #### T SH #### [facility] [address] [place] [address] Dr. Marlene Blanton Lymphocytes/100 WBC (Bld) 16.1 % Critically low 20.5-60.[address] [facility] Comment on above: Performed By: #### T SH #### [facility] [address] [place] [address] Dr. Marlene Blanton MANUAL DIFF REQ NO Normal [facility] Comment on above: Performed By: #### T SH #### [facility] [address] [place] [address] Dr. Marlene Blanton MCH (RBC) [Entitic mass] 29.0 pg Normal 26.7-34.[address] [facility] Comment on above: Performed By: #### T SH #### [facility] [address] [place] [address] Dr. Marlene Blanton MCHC (RBC) [Mass/Vol] 32.1 g/dL Normal 29.9-35.[address] [facility] Comment on above: Performed By: #### T SH #### [facility] [address] [place] [address] Dr. Marlene Blanton MCV (RBC) [Entitic vol] 90.1 fL Normal 81.0-99.[address] [facility] Comment on above: Performed By: #### T SH #### [facility] [address] [place] [address] Dr. Marlene Blanton MONO # 0.7 103/ul Normal 0.3-0.[address] [facility] Comment on above: Performed By: #### T SH #### [facility] [address] [address] [address] Marlene Blanton Monocytes/100 WBC (Bld) 5.3 % Normal 1.7-12.[address] [facility] Comment on above: Performed By: #### T SH #### [facility] [address] [address] [address] Marlene Blanton NEUT # 9.7 103/ul Critically high 1.4-6.[address] [facility] Comment on above: Performed By: #### T SH #### [facility] [address] [place] [address] Dr. Marlene Blanton Neutrophils/100 WBC (Bld) 77.8 % Critically high 43.0-75.[address] [facility] Comment on above: Performed By: #### T SH #### [facility] [address] [place] [address] Dr. Marlene Blanton Platelet mean volume (Bld) [Entitic vol] 8.5 fL Critically low 9.5-13.[address] [facility] Comment on above: Performed By: #### T SH #### [facility] [address] [place] [address] Dr. Marlene Blanton PLT 248 103/ul Normal 150-450 [facility] Comment on above: Performed By: #### T SH #### [facility] [address] [place] [address] Dr. Marlene Blanton RBC 3.73 106/ul Critically low 4.20-5.[address] [facility] Comment on above: Performed By: #### T SH #### [facility] [address] [place] [address] Dr. Marlene Blanton WBC 12.4 103/ul Critically high 4.0-11.0 [facility] Comment on above: Performed By: #### T SH #### [facility] [address] [place] [address] Dr. Marlene Blanton CREATININEon 06-21-2022 Creatinine [Mass/Vol] 0.87 mg/dL Normal 0.55-1.[address] [facility] Comment on above: Performed By: #### C BC #### [facility] [address] [place] [address] Dr. Marlene Blanton EGFR-AF MACANESE >60 Normal >=60 [facility] Comment on above: Performed By: #### C BC #### [facility] [address] [place] [address] Dr. Marlene Blanton EGFR-NON AF MACANESE >60 Normal >=60 [facility] Comment on above: Performed By: #### C BC #### [facility] [address] [place] [address] Dr. Marlene Blanton CBC AUTO DIFFon 06-19-2022 BASO # 0.1 103/ul Normal 0.0-0.1 [facility] Comment on above: Performed By: #### C BC #### [facility] [address] [place] [address] Dr. Marlene Blanton Basophils/100 WBC (Bld) 0.5 % Normal 0.2-2.[address] [facility] Comment on above: Performed By: #### C BC #### [facility] [address] [place] [address] Dr. Marlene Blanton EO # 0.0 103/ul Normal 0.0-0.[address] [facility] Comment on above: Performed By: #### C BC #### [facility] [address] [place] [address] Dr. Marlene Blanton Eosinophils/100 WBC (Bld) 0.1 % Critically low 0.9-7.0 [facility] Comment on above: Performed By: #### C BC #### [facility] [address] [place] [address] Dr. Marlene Blanton Erythrocyte distribution width (RBC) [Ratio] 13.4 % Normal 11.0-15.0 [facility] Comment on above: Performed By: #### C BC #### [facility] [address] [place] [address] Dr. Marlene Blanton Hematocrit (Bld) [Volume fraction] 39.8 % Normal 36.0-48.[address] [facility] Comment on above: Performed By: #### C BC #### [facility] [address] [place] [address] Dr. Marlene Blanton Hemoglobin (Bld) [Mass/Vol] 13.2 g/dL Normal 12.0-16.0 [facility] Comment on above: Performed By: #### C BC #### [facility] [address] [place] [address] Dr. Marlene Blanton IG # 0.05 10e3/ul Critically high 0.00-0.03 [facility] Comment on above: Performed By: #### C BC #### [facility] [address] [place] [address] Dr. Marlene Blanton IG % 0.5 % Normal 0.0-0.[address] [facility] Comment on above: Performed By: #### C BC #### [facility] [address] [place] [address] Dr. Marlene Blanton LYMPH # 2.4 103/ul Normal 1.2-3.[address] [facility] Comment on above: Performed By: #### C BC #### [facility] [address] [place] [address] Dr. Marlene Blanton Lymphocytes/100 WBC (Bld) 24.7 % Normal 20.5-60.[address] [facility] Comment on above: Performed By: #### C BC #### [facility] [address] [place] [address] Dr. Marlene Blanton MANUAL DIFF REQ NO Normal [facility] Comment on above: Performed By: #### C BC #### [facility] [address] [place] [address] Dr. Marlene Blanton MCH (RBC) [Entitic mass] 29.7 pg Normal 26.7-34.0 [facility] Comment on above: Performed By: #### C BC #### [facility] [address] [place] [address] Dr. Marlene Blanton MCHC (RBC) [Mass/Vol] 33.2 g/dL Normal 29.9-35.[address] [facility] Comment on above: Performed By: #### C BC #### [facility] [address] [place] [address] Dr. Marlene Blanton MCV (RBC) [Entitic vol] 89.4 fL Normal 81.0-99.[address] [facility] Comment on above: Performed By: #### C BC #### [facility] [address] [place] [address] Dr. Marlene Blanton MONO # 0.8 103/ul Normal 0.3-0.8 [facility] Comment on above: Performed By: #### C BC #### [facility] [address] [place] [address] Dr. Marlene Blanton Monocytes/100 WBC (Bld) 7.9 % Normal 1.7-12.0 [facility] Comment on above: Performed By: #### C BC #### [facility] [address] [place] [address] Dr. Marlene Blanton NEUT # 6.3 103/ul Normal 1.4-6.[address] [facility] Comment on above: Performed By: #### C BC #### [facility] [address] [place] [address] Dr. Marlene Blanton Neutrophils/100 WBC (Bld) 66.3 % Normal 43.0-75.0 [facility] Comment on above: Performed By: #### C BC #### [facility] [address] [place] [address] Dr. Marlene Blanton Platelet mean volume (Bld) [Entitic vol] 8.3 fL Critically low 9.5-13.5 [facility] Comment on above: Performed By: #### C BC #### [facility] [address] [place] [address] Dr. Marlene Blanton PLT 300 103/ul Normal 150-450 [facility] Comment on above: Performed By: #### C BC #### [facility] [address] [place] [address] Dr. Marlene Blanton RBC 4.45 106/ul Normal 4.20-5.40 [facility] Comment on above: Performed By: #### C BC #### [facility] [address] [place] [address] Dr. Marlene Blanton WBC 9.6 103/ul Normal 4.0-11.[address] [facility] Comment on above: Performed By: #### C BC #### [facility] [address] [place] [address] Dr. Marlene Blanton PREG QUANT HCGon 06-19-2022 HCG QUANT 1 mIU/mL Normal [facility] Comment on above: Performed By: #### P REGQNT #### [facility] [address] [place] [address] Dr. Marlene Blanton HCG RANGE SEE BELOW Normal [facility] Comment on above: Result Comment: 5-50 0.2-1 WEEK 50-500 1-2 WEEKS 100-5,000 2-3 WEEKS 500-10,000 3-4 WEEKS 1,000-50,000 4-5 WEEKS 10,000-100,000 5-6 WEEKS 15,000-200,000 6-8 WEEKS 10,000-100,000 2-3 MONTHS Performed By: #### P REGQNT #### [facility] [address] [place] [address] Dr. Marlene Blanton TYPE AND SCREENon 06-19-2022 TYPE AND SCREEN Negative Normal [facility] Comment on above: Performed By: #### C BC #### [facility] [address] [place] [address] Dr. Marlene Blanton ASYMPTOMATIC COVID-19 ANTIGE Non 05-28-2022 EUA Statement SEE BELOW Normal [facility] Comment on above: Result Comment: This [...] sooner. Performed By: #### C BC #### [facility] [address] [place] [address] Dr. Marlene Blanton SARS-CoV-2 (COVID-19) RNA [place]+probe Ql (Unsp spec) Positive Critically abnormal NEGATIVE [facility] Comment on above: Result Comment: SARS -CoV-2 antigen present; does not rule out coinfection with other pathogens. Performed By: #### C BC #### [facility] [address] [place] [address] Dr. Marlene Blanton [facility]24 SARS-CoV-2 (COVID-19) RNA [place]+probe Ql (Unsp spec) Detected Critically abnormal NOT DETECTED [facility] Comment on above: Result Comment: This test is not yet approved or cleared by the [place] FDA. When there are no FDA-approved or cleared tests available, and other criteria are met, FDA can make tests available under an emergency access mechanism called an Emergency Use Authorization (EUA). The EUA for this test is supported by the [place] of Health and Human Service's declaration that [...] longer be used). Performed By: #### C VDTBH #### [facility] [address] [place] [address] Dr. Marlene Blanton PAP ACOG PANEL 2: 30 to 65on 05-15-[address] . . [address] [facility] Comment on above: Result Comment: Perf ormed at: WB Performed By: #### [id number] #### [facility] [address] [place] [address] Dr. Marlene Blanton Age Gdln ACOG Testing 30-[address] [facility] Comment on above: Performed By: #### 4 [id number] #### [facility] [address] [place] [address] Dr. Marlene Blanton DIAGNOSIS: Comment Normal [facility] Comment on above: Result Comment: NEGA TIVE FOR INTRAEPITHELIAL LESION OR MALIGNANCY. FUNGAL ORGANISMS MORPHOLOGICALLY CONSISTENT WITH BAILEY SPECIES ARE PRESENT. Performed at: WB Performed By: #### [id number] #### [facility] [address] [place] [address] Dr. Marlene Blanton HPV Aptima Negative Normal Negative [facility] Comment on above: Result Comment: This nucleic acid amplification test detects fourteen high-risk HPV types (16,18,31,33,35,39,45,51,52,56,58,59,66,68) without differentiation. Performed at: =G Performed By: #### 4 [id number] #### [facility] [address] [place] [address] Dr. Marlene Blanton HPV Genotype Reflex Comment Normal [facility] Comment on above: Result Comment: Crit eria not met, HPV Genotype not performed. Performed at: WB Performed By: #### 4 [id number] #### [facility] [address] [place] [address] Dr. Marlene Blanton Methodology: Comment Normal [facility] Comment on above: Result Comment: This liquid based ThinPrep(R) pap test was screened with the use of an image guided system. Performed at: WB Performed By: #### [id number] #### [facility] [address] [place] [address] Dr. Marlene Blanton Note: Comment Normal [facility] Comment on above: Result Comment: The Pap smear is a screening test designed to aid in the detection of premalignant and malignant conditions of the uterine cervix. It is not a diagnostic procedure and should not be used as the sole means of detecting cervical cancer. Both false-positive and false-negative reports do occur. . Performed at: WB Performed By: #### 4 [id number] #### [facility] [address] [place] [address] Dr. Marlene Blanton Performed by: Comment Normal [facility] Comment on above: Result Comment: Marycruz Gillespie Nut Sorter Operator (ASCP) Performed at: WB Performed By: #### [id number] #### [facility] [address] [place] [address] Dr. Marlene Blanton Specimen adequacy: Comment Normal [facility] Comment on above: Result Comment: Sati sfactory for evaluation. No endocervical component is identified. Performed at: WB Performed By: #### 4 [id number] #### [facility] [address] [address] [address] Marlene Blanton MG MAMM SCREEN 3D JENNIFER CADon 05-14-2022 MG MAMM SCREEN 3D JENNIFER CAD Patient: ELIZA COELLO Exam Date: 05/14/2022 : 1970 Gender:F Ordering : DR JAVID WATSON . Admission #: [id number] Family : DR JOSH HONG . Order #: [id number] CLICK HERE TO VIEW EXAM RADIOLOGY REPORT [...] melanoma cancer at age 19. LOCATION: [facility] BREAST COMPOSITION: Heterogeneously dense,which may obscure small [...] M.D. on 05/14/2022 at 14:48 Normal [facility] US PELVIS AND TRANSVAGon US PELVIS AND [...] ROSSANA VELÁSQUEZ Date: 2022-05-09 13:04 Normal [facility] CBC AUTO DIFFon 05-08-2022 BASO # 0.1 103/ul Normal 0.0-0.[address] [facility] Comment on above: Performed By: #### T SH #### [facility] [address] [place] [address] Dr. Marlene Blanton Basophils/100 WBC (Bld) 0.7 % Normal 0.2-2.[address] [facility] Comment on above: Performed By: #### T SH #### [facility] [address] [place] [address] Dr. Marlene Blanton EO # 0.0 103/ul Normal 0.0-0.[address] [facility] Comment on above: Performed By: #### T SH #### [facility] [address] [place] [address] Dr. Marlene Blanton Eosinophils/100 WBC (Bld) 0.0 % Critically low 0.9-7.[address] [facility] Comment on above: Performed By: #### T SH #### [facility] [address] [place] [address] Dr. Marlene Blanton Erythrocyte distribution width (RBC) [Ratio] 13.4 % Normal 11.0-15.[address] [facility] Comment on above: Performed By: #### T SH #### [facility] [address] [place] [address] Dr. Marlene Blanton Hematocrit (Bld) [Volume fraction] 42.1 % Normal 36.0-48.[address] [facility] Comment on above: Performed By: #### T SH #### [facility] [address] [place] [address] Dr. Marlene Blanton Hemoglobin (Bld) [Mass/Vol] 13.8 g/dL Normal 12.0-16.[address] [facility] Comment on above: Performed By: #### T SH #### [facility] [address] [place] [address] Dr. Marlene Blanton IG # 0.04 10e3/ul Critically high 0.00-0.03 [facility] Comment on above: Performed By: #### T SH #### [facility] [address] [place] [address] Dr. Marlene Blanton IG % 0.4 % Normal 0.0-0.[address] [facility] Comment on above: Performed By: #### T SH #### [facility] [address] [place] [address] Dr. Marlene Blanton LYMPH # 2.1 103/ul Normal 1.2-3.[address] [facility] Comment on above: Performed By: #### T SH #### [facility] [address] [place] [address] Dr. Marlene Blanton Lymphocytes/100 WBC (Bld) 23.3 % Normal 20.5-60.[address] [facility] Comment on above: Performed By: #### T SH #### [facility] [address] [place] [address] Dr. Marlene Blanton MANUAL DIFF REQ NO Normal [facility] Comment on above: Performed By: #### T SH #### [facility] [address] [place] [address] Dr. Marlene Blanton MCH (RBC) [Entitic mass] 29.3 pg Normal 26.7-34.[address] [facility] Comment on above: Performed By: #### T SH #### [facility] [address] [place] [address] Dr. Marlene Blanton MCHC (RBC) [Mass/Vol] 32.8 g/dL Normal 29.9-35.[address] [facility] Comment on above: Performed By: #### T SH #### [facility] [address] [place] [address] Dr. Marlene Blanton MCV (RBC) [Entitic vol] 89.4 fL Normal 81.0-99.[address] [facility] Comment on above: Performed By: #### T SH #### [facility] [address] [address] [address] Marlene Blanton MONO # 0.7 103/ul Normal 0.3-0.8 [facility] Comment on above: Performed By: #### T SH #### [facility] [address] [address] [address] Marlene Blanton Monocytes/100 WBC (Bld) 7.3 % Normal 1.7-12.[address] [facility] Comment on above: Performed By: #### T SH #### [facility] [address] [place] [address] Dr. Marlene Blanton NEUT # 6.1 103/ul Normal 1.4-6.5 [facility] Comment on above: Performed By: #### T SH #### [facility] [address] [place] [address] Dr. Marlene Blanton Neutrophils/100 WBC (Bld) 68.3 % Normal 43.0-75.[address] [facility] Comment on above: Performed By: #### T SH #### [facility] [address] [place] [address] Dr. Marlene Blanton Platelet mean volume (Bld) [Entitic vol] 8.8 fL Critically low 9.5-13.[address] [facility] Comment on above: Performed By: #### T SH #### [facility] [address] [place] [address] Dr. Marlene Blanton PLT 310 103/ul Normal 150-450 [facility] Comment on above: Performed By: #### T SH #### [facility] [address] [place] [address] Dr. Marlene Blanton RBC 4.71 106/ul Normal 4.20-5.40 [facility] Comment on above: Performed By: #### T SH #### [facility] [address] [place] [address] Dr. Marlene Blanton WBC 9.0 103/ul Normal 4.0-11.0 [facility] Comment on above: Performed By: #### T SH #### [facility] [address] [place] [address] Dr. Marlene Blantno FREE T4on 05-08-2022 Free T4 [Mass/Vol] 1.09 ng/dL Normal 0.76-1.46 [facility] Comment on above: Performed By: #### T SH #### [facility] [address] [place] [address] Dr. Marlene Blanton PREG QUANT HCGon 05-08-2022 HCG QUANT 1 mIU/mL Normal [facility] Comment on above: Performed By: #### T SH, PREGQNT #### [facility] [address] [place] [address] Dr. Marlene Blanton HCG RANGE SEE BELOW Normal [facility] Comment on above: Result Comment: 5-50 0.2-1 WEEK 50-500 1-2 WEEKS 100-5,000 2-3 WEEKS 500-10,000 3-4 WEEKS 1,000-50,000 4-5 WEEKS 10,000-100,000 5-6 WEEKS 15,000-200,000 6-8 WEEKS 10,000-100,000 2-3 MONTHS Performed By: #### T SH, PREGQNT #### [facility] [address] [place] [address] Dr. Marlene Blanton PROTIMEon 05-08-2022 INR Coag (PPP) [Relative time] 0.95 {INR} Normal [facility] Comment on above: Performed By: #### C BC #### [facility] [address] [place] [address] Dr. Marlene Blanton INR GUIDELINES SEE BELOW Normal [facility] Comment on above: Result Comment: GLEN RED INR: 2.0 - 3.0 CONDITIONS NOT LISTED BELOW 2.5 - 3.5 FOR PROSTHETIC HEART VALVE REPLACEMENT 2.5 - 3.5 RECURRENT THROMBOSIS Performed By: #### C BC #### [facility] [address] [place] [address] Dr. Marlene Blanton PT Coag (PPP) [Time] 10.3 s Normal 9.0-11.[address] [facility] Comment on above: Performed By: #### C BC #### [facility] [address] [address] [address] Marlene Blanton PTTon 05-08-2022 aPTT Coag (Bld) [Time] 26.3 s Normal 22.3-36.[address] [facility] Comment on above: Performed By: #### C BC #### [facility] [address] [address] [address] Marlene Blanton TSHon 05-08-2022 TSH 4.001 uIU/mL Critically high 0.358-3.740 [facility] Comment on above: Performed By: #### T SH, PREGQNT #### [facility] [address] [address] [address] Marlene Blanton Reminderson 06-01-2020 Reminders - From: Jesenia Price LPN To: N - Clinical; Sent: 06/01/2020 08:20:44 EST Show up: 04/24/2030 09:00:00 EDT Subject: colonoscopy recall Due Date/Time: 05/24/2030 09:00:00 EST Reminder/Recall Patient is due for screening colonoscopy 05/24/2030. Normal [facility] Ambulatory Clinical Summaryo n 05-31-2020 Ambulatory Clinical Summary {[id number]}CD:[id number] Normal [facility] General Surgery Office/Clini c Noteon 05-31-2020 General [...] Salguero Only if needed [address] [place] [address]- Additional Instructions: Problem List/Past Medical [...] malignant neoplasm of female breast: Mother. Normal [facility] Comment on above: Result Comment: Elec tronically Signed By: GABRIEL LAUREN, Corby Salguero\.layla\Date and Time Signed: 05/31/20 16:31 EST Pathology Noteon 05-29-2020 Pathology Note [id number] .00CD:127 Normal [facility] Outside Colonoscopyon 2019 Outside Colonoscopy [id number] .00CD:127 Normal [facility] Lab Reportson 05-25-2020 Lab Reports [id number] .00CD:127 Normal [facility] Provider Letter FTMCon 05-12 Provider Letter [facility] Hong, [facility] [place] [address] Re: ELIZA COELLO Date of : 1970 Thank you for your referral of Eliza Coello who was seen on consultation on May 09, 2020, for rectal bleeding, abdominal pain with bowel movements. A colonoscopy is ordered for further evaluation. I will be happy to follow Eliza. Sincerely, Corby Buitrago MD General Surgery [facility] Ambulatory Clinical Summaryo n 05-09-2020 Ambulatory Clinical Summary {[id number]}CD:[id number] Normal [facility] General Surgery Office/Clini c Noteon 05-09-2020 General [...] available Patient Education Exercise to Stay Healthy, Fhbv-yq-Rakf Problem List/Past Medical History Ongoing Abdominal pain, [...] Primary malignant neoplasm of female breast: Mother. [facility] Comment on above: Result Comment: Xavier roy Signed By: GABRIEL LAUREN, Corby Stauffer\Date and Time Signed: 05/09/20 17:10 EST Patient Educationon 05-09-20 20 Patient Education Exercise to Stay Healthy Exercise [...] Document Reviewed: 07/12/2011 ExitCare? Patient Information ?2013 [employer]. [facility] Physician Referralon 020 Physician Referral [id number] .00CD:127 [facility] Encounters Encounter Date Encounter Type Care Provider Facility Start: 05-14-2023 End: 05-14-2023 ambulatory REID JORGE Not Available Start: 10-30-2022 End: 10-31-[address] JOSH HONG . Facility[facility] Start: 07-04-2022 End: 07-05-[address] JAVID WATSON . Facility[facility] Start: 06-21-2022 Encounter for prepro cedural laboratory examination DR JAVID WATSON . [facility] Start: 06-20-2022 End: 06-21-[address] JAVID WATSON . Facility[facility] Start: 06-19-2022 Encounter for prepro cedural cardiovascular examination DR JAVID WATSON . [facility] Start: 06-19-2022 End: 06-20-[address] JAVID WATSON . Facility[facility] Start: 06-19-2022 End: 06-20-2022 Encounter for preprocedural laboratory examination DR JAVID WATSON . Facility:[facility] Start: 06-11-2022 End: 06-12-[address] JAVID WATSON . Facility[facility] Start: 06-11-2022 End: 06-12-2022 Encounter for preprocedural cardiovascular examination DR JAVID WATSON . Facility:[facility] Start: 05-28-2022 End: 05-28-2022 ambulatory JAON RICHARDSON Facility:[facility] Start: 05-21-2022 End: 05-21-2022 ambulatory JOAN RICHARDSON Facility:[facility] Start: 05-14-2022 End: 05-15-[address] JAVID WATSON . Facility[facility] Start: 05-09-2022 End: 05-10-[address] ROSSANA VELÁSQUEZ Facility:[facility] Start: 05-08-2022 End: 05-09-[address] JAVID WATSON . Facility:[facility] Start: 05-07-2022 End: 05-07-[address] JAVID WATSON . Facility: Payers Date Payer Category Payer Unknown [id number] 2.16.84 [id number] 1970 Unknown [id number] 2.16.84 [id number] 1970 Unknown [id number] 2.16.84 [id number] 1970 Unknown [id number] 2.16.84 [id number] 1970 Unknown [id number] 2.16.84 [id number] 1970 Unknown [id number] 2.16.84 [id number] 1970 Unknown [id number] 2.16.84 [id number] 1970 Unknown [id number] 2.16.84 [id number] 1970 Unknown [id number] 2.16.84 [id number] 1970 Unknown [id number] 2.16.84 [id number] 1970 Unknown [id number] 2.16.84 [id number] 1970 Unknown [id number] 2.16.840 .[id number] 1960 Unknown [id number] Clinical Note 06-20-2022 Note Date & Type Note Facility 06-20-2022 Note OPERATIVE NOTE OPERATION DATE: 06/20/2022 PROCEDURE: vNOTES hysterectomy with cystoscopy and bilateral salpingectomy. PREOPERATIVE DIAGNOSIS: Pelvic pressure, menorrhagia, dysmenorrhea, dyspareunia. POSTOPERATIVE DIAGNOSIS: Pelvic pressure, menorrhagia, dysmenorrhea, dyspareunia. ANESTHESIA: General. SURGEON: Javid Watson M.D. RIFLE CASE REPAIRER: PIYUSH Howell URINE OUTPUT: Yellow and clear. [...] Sponge, lap, needle counts correct x2. [facility] Summary Purpose Family History No Family History Records FoundNo Family History Records FoundNo Family History Records Found Advance Directives No Advanced Directives Records FoundNo Advanced Directives Records FoundNo Advanced Directives Records Found Additional Source Comments INFORMATION SOURCE (unrecogn ized section and content) DATE CREATED AUTHOR 06/15/2020 [employer] [facility] DATE CREATED AUTHOR AUTHOR'S ORGANIZ ATION 11/03/2022 [facility] DATE CREATED AUTHOR AUTHOR'S ORGANIZ ATION 05/16/2023 [facility] FOR RECORDS PERTAINING TO PATIENTS WHO ARE [...] BE BASED ON THE PRIMARY CLINICAL RECORDS. [facility] [employer] [facility]. provides no warranty or guarantee of the accuracy or completeness of information in this document.
--- NOTE | 2023-08-04 11:54 | XR_ITS ---
The [address] [address] Patient Name: RENETTA COELLO MRN: [id number] date: 1970 Sex: F Assigned Patient Location: [facility] Current Patient Location: [facility] Accession/Order Number: [id number] Exam Date: 08/04/2023 11:55 Report Date: 08/04/2023 13:56 At the request of: JOSH CONTRERAS Procedure: XR hip LT min 2V STUDY: XR hip LT min 2V, [id number] HISTORY: pain in left hip M25.552 COMPARISON: Left hip and pelvis x-rays 09/24/2021 FINDINGS: No acute fracture, dislocation, or suspicious osseous lesion. No significant degenerative changes. Visualized soft tissues are within normal limits. No evidence of osteonecrosis. XR/XR hip LT min 2V IMPRESSION: Negative exam. No osseous etiology for left hip pain demonstrated. Electronically authenticated by: STEPHANI BARNARD Date: 08/04/2023 13:56
== END 2023-08-04 11:51 | disposition home or self-care (01) ==
LOC: RAD 11:50
PROVIDERS: PCP Family Medicine; Visit Provider Family Medicine
DX: M25.552 Pain in left hip (principal)
CPT/HCPCS: 73502

== ENCOUNTER 2023-09-01 16:16 | Outpatient (RCR) | payer OTHER, SELFPAY | END 2023-10-09 17:17 | disposition home or self-care (01) | LOC: PT 16:16 | PROVIDERS: PCP Family Medicine; Visit Provider Family Medicine | DX: M25.552 Pain in left hip (principal) | CPT/HCPCS: 97010; 97014; 97110; 97112; 97140; 97162 ==

== ENCOUNTER 2023-10-28 15:00 | Outpatient (OUT) | payer OTHER, SELFPAY ==
--- NOTE | 2023-10-28 15:04 | MR_ITS ---
The [address] [address] Patient Name: RENETTA COELLO MRN: [id number] date: 1970 Sex: F Assigned Patient Location: MRI Current Patient Location: Accession/Order Number: [id number] Exam Date: 10/28/2023 15:13 Report Date: 10/30/2023 09:02 At the request of: JOSH CONTRERAS Procedure: MR hip LT wo con EXAM: MR hip LT wo con REASON FOR EXAM: Hip pain, left M25.552. TECHNIQUE: Multiplanar, multisequence imaging of the left hip was performed without contrast COMPARISON: Radiographs 08/04/2023. FINDINGS: On small exeyu-ro-lnsq imaging of the left hip, left femur is well seated within the acetabulum. No fracture or AVN. There is low-grade chondrosis anteriorly. No high-grade chondrosis identified. No subchondral marrow changes. No joint effusion. Mild left gluteal insertional tendinosis the greater trochanter without tear. Mild proximal left hamstring tendinosis. No evidence of bursitis. The remaining left hip regional musculature is without muscle strain or tendon tear. On large aywvq-ud-bmyf imaging, the bone marrow signal is heterogeneous, favoring to represent red marrow reconversion. At least mild degenerative disc disease the lower lumbar spine, incompletely characterized. The sacroiliac joints appear congruent without fracture or effusion. The pubic symphysis is congruent. The right femur is well seated within the acetabulum without fracture or AVN. No high-grade chondrosis. No joint effusion. Mild right gluteal insertional tendinosis without tear or bursitis. Mild proximal right hamstring tendinosis. The remaining right hip regional musculature is unremarkable. Limited evaluation the pelvic viscera is without acute abnormality. The uterus appears surgically absent. There is a large cystic structure within the deep pelvis, which measures 6 cm in maximum dimension. This is incompletely characterized. Consider dedicated pelvic ultrasound for further characterization. MR/MR hip LT wo con IMPRESSION: 1. Mild bilateral hip osteoarthritis without fracture or AVN. 2. Bilateral gluteal insertional and proximal hamstring tendinosis without significant tear. 3. Mild degenerative disc disease the lower lumbar spine. 4. 6 cm mostly cystic structure identified within the deep pelvis, incompletely characterized. Consider dedicated pelvic ultrasound for further characterization. Electronically authenticated by: CHEPE JACOB Date: 10/30/2023 09:02
== END 2023-10-28 15:01 | disposition home or self-care (01) ==
LOC: MRI 15:01
PROVIDERS: PCP Family Medicine; Visit Provider Family Medicine
DX: M25.552 Pain in left hip (principal); M51.36 Other intervertebral disc degeneration, lumbar region
CPT/HCPCS: 73721

== ENCOUNTER 2023-11-01 09:06 | Outpatient (OUT) | payer OTHER, SELFPAY ==
--- OUTSIDE RECORDS SUMMARY | 2023-11-01 09:09 | XMS_ITS | CCD ---
Author Organization [facility] Care Team Providers Care Bag Machine Operator Helper Name Role Phone DARCIE ., DR HUA Consulting Unavailable HOY ., DR MORENO Primary Care Unavailable DARCIE ., DR HUA Attending Unavailable DARCIE ., DR HUA Admitting Unavailable VERONIQUE, JOSE Consulting Unavailable MCCASTER, VELVET Consulting Unavailable GEMBUS, [...] HUA Admitting Unavailable DYLAN, JOAN Consulting Unavailable HOY ., DR MORENO Primary Care Unavailable DYLAN, JOAN Attending Unavailable DYLAN, JOAN Admitting Unavailable DYLANJOAN BOYLE Consulting Unavailable DIANE ., DR MORENO Primary Care Unavailable DYLAN, JOAN Attending Unavailable DYLAN, JOAN Admitting Unavailable DARCIE ., DR HUA Consulting Unavailable HOY ., DR MORENO Primary Care Unavailable DARCIE ., DR HUA Attending Unavailable DARCIE ., DR HUA Admitting Unavailable HANSFORD, DR ROSSANA Teague Consulting Unavailable HOY ., DR MORENO Primary Care Unavailable DARCIE ., DR HUA Attending Unavailable DARCIE ., DR HUA Admitting Unavailable DARCIE ., DR HUA Consulting Unavailable DARCIE ., DR HUA Consulting Unavailable HOPaloma ., DR MORENO Primary Care Unavailable DARCIE ., DR HUA Attending Unavailable DARCIE ., DR HUA Admitting Unavailable ZIEBER, DR CHEIKH Salguero Consulting Unavailable DIANE ., DR MORENO Consulting Unavailable DIANE ., DR MORENO Primary Care Unavailable DIANE ., DR MORENO Attending Unavailable DIANE ., DR MORENO Admitting Unavailable HANSFORD, DR ROSSANA Teague Consulting Unavailable REID JORGE Attending Unavailable MD Josh Hong Primary Care Provider [phone] DO Elizabeth Perea Attending Provider Elizabeth Perea Attending Unavailable Elizabeth Perea Admitting Unavailable Josh Hong Primary Care Unavailable Allergies Allergy Classification Reported Allergen(s) Allergy Type Date of Onset Reaction(s) Facility (2 sources) Fluconazole Drug Allergy 06-23-2021 [facility] Repository (1 source) levoFLOXacin Drug Allergy [facility] Repository (1 source) levoFLOXacin Drug Allergy 10-21-2023 [facility] Repository Medications Current Medications Medication Drug Class(es) Dates Sig (Normalized) Sig (Original) Black elderberry (1 source) Start: 10-08-2023 take 2000 mg by mouth twice daily Black elderberry Active 2000 MG PO Twice daily October 08, 2023 12:00am cholecalciferol 0.05 mg oral capsule (1 source) Vitamin D Start: 10-03-2023 take 25 ug by mouth once daily Cholecalciferol (Vitamin D3) Active 25 MCG PO Daily October 03, 2023 12:00am 24 hr desvenlafaxine succinate 100 mg extended release oral tablet (1 source) Serotonin and Norepinephrine Reuptake Inhibitor Start: 10-03-2023 take 1 tablet by mouth twice daily, then take 1 tablet by mouth every twenty-four hours Desvenlafaxine Succinate (Pristiq) 100 mg tablet extended release 24 hr Active 100 MG PO Twice daily October 03, 2023 12:00am diclofenac sodium 75 mg extended release oral tablet (1 source) Nonsteroidal Anti-inflammatory Drug Start: 10-03-2023 take 75 mg by mouth twice daily Diclofenac Potassium Active 75 MG PO Twice daily October 03, 2023 12:00am folic acid 0.4 mg / vitamin b12 0.5 mg oral tablet (1 source) Vitamin B12 Start: 10-08-2023 take 2 tablets by mouth once daily Vitamin W54-Xsgqu Acid Active 2 TAB PO Daily October 08, 2023 12:00am administer with a meal gabapentin 300 mg oral capsule (1 source) Anti-epileptic Agent Start: 10-03-2023 take 300 mg by mouth three times daily Gabapentin Active 300 MG PO Three times daily October 03, 2023 12:00am pantoprazole 40 mg delayed release oral tablet (1 source) Proton Pump Inhibitor Start: 10-08-2023 take 40 mg by mouth twice daily Pantoprazole Active 40 MG PO Twice daily October 08, 2023 12:00am rimegepant 75 mg disintegrating oral tablet (2 sources) Start: 10-21-2023 take 1 tablet by mouth once daily Rimegepant (Nurtec Odt) 75 mg tablet,disintegrati ng Active 75 MG PO Daily October 21, 2023 12:00am Start: 10-21-2023 take 1 tablet by belen th every other day Rimegepant (Nurtec Odt) 75 mg tablet,disintegrating Active 75 MG PO Q2D October 21, 2023 12:00am Completed/Discontinued Medications Medication Drug Class(es) Dates Sig (Normalized) Sig (Original) biotin 10 mg oral capsule (1 source) Start: 10-03-2023 End: 10-08-2023 Biotin Discontinued MCG PO October 03, 2023 12:00am October 08, 2023 12:29pm omeprazole 40 mg delayed release oral capsule (1 source) Proton Pump Inhibitor Start: 10-03-2023 End: 10-08-2023 take 40 mg by mouth twice daily Omeprazole Discontinued 40 MG PO Twice daily October 03, 2023 12:00am October 08, 2023 12:30pm Problems Active Problems Problem Classification Problem Date Documented Da te Episodic/Chronic Abdominal pain (4 sources) Pelvic and perineal pain; Translations: [Abdominal pain] Onset: 3 10-21-2023 Episodic Conditions associated with dizziness or vertigo (1 source) Vertigo; Translations: [Dizziness and giddiness] 10-21-2023 Episodic Esophageal disorders (2 sources) Gastroesophageal reflux disease; Translations: [Gastro-esophageal reflux disease without esophagitis] 10-21-2023 Chronic Menopausal disorders (1 source) Menopausal and female climacteric states; Translations: [MENOPAUSAL FE CLIMACTERIC STATES] Onset: 3 Chronic Menstrual disorders (10 sources) Excessive and frequent menstruation with regular cycle; Translations: [Dysmenorrhea, unspecified] Onset: 2 Chronic Other diseases of veins and lymphatics (4 sources) Venous insufficiency (chronic) (peripheral); Translations: [VENOUS INSUFF CHRONIC PERIPHERAL] Onset: 3 Episodic Other endocrine disorders (1 source) Polycystic ovarian syndrome; Translations: [POLYCYSTIC OVARIAN SYNDROME] Onset: 3 Chronic Other gastrointestinal disorders (1 source) Abdominal bloating; Translations: [Abdominal distension (gaseous)] 10-21-2023 Episodic Other gastrointestinal disorders (1 source) Mucus in stool; Translations: [Other fecal abnormalities] 10-21-2023 Episodic Other gastrointestinal disorders (1 source) Abdominal distension (gaseous); Translations: [Flatulence, eructation, and gas pain] 10-03-2023 Episodic Other gastrointestinal disorders (1 source) Other fecal abnormalities; Translations: [Nonspecific abnormal findings in stool contents] 10-03-2023 Episodic Other skin disorders (1 source) Vitiligo; Translations: [Vitiligo] 10-21-2023 Episodic Prolapse of female genital organs (1 source) Uterovaginal prolapse, unspecified; Translations: [UTEROVAGINAL PROLAPSE UNSPECIFIED] Onset: 2 Chronic Unclassified (1 source) PERSONAL HISTORY OF COVID-19; Translations: [PERSONAL HISTORY OF COVID-19] Onset: 3 Unclassified (2 sources) CONTACT W/AND (SUSP) EXPOS COVID-19; Translations: [CONTACT W/AND (SUSP) EXPOS COVID-19] Onset: 2 Viral infection (1 source) COVID-19; Translations: [COVID-19] Onset: 2 Past or Other Problems Problem Classification Problem Date Documented Da te Episodic/Chronic Immunizations and screening for infectious disease (1 source) Encounter for screening for human papillomavirus (HPV); Translations: [ENC SCREENING HUMAN PAPILLOMAVIRUS] Onset: 05-10-2022 Episodic Inflammatory diseases of female pelvic organs (1 source) Inflammatory disease of cervix uteri; Translations: [INFLAMMATORY DISEASE CERVIX UTERI] Onset: 07-03-2022 Episodic Other aftercare (1 source) Other terminal make up operator (current) drug therapy; Translations: [OTH K 9 POLICE OFFICER CURRENT DRUG THERAPY] Onset: 07-03-2022 Episodic Other aftercare (1 source) terminal operator (current) use of oral hypoglycemic drugs; Translations: [PRISON USE ORAL HYPOGLYCEMIC DX] Onset: 07-03-2022 Episodic [...] Test Name Value Interpretation Reference Range Facility [facility] 10-21-2023 L Specimen: [id number] Received: 10/21/23 Status: ANUSHA Req Num: [id number] Spec Type: Surgical Subm Dr: Elizabeth Perea DO Tissues: A Small Intestine - Biopsy/Polyp (SMALL BOWEL) B GASTRIC FOR HP (GASTRIC HP) C Gastric Biopsy (GASTRIC POLYP) Procedures: HE/6, Gross/Micro L4/3, H PYLORI, IHC First AB Age/ Patient Sex Location Account Attending Physician Eliza Coello 52/F [id number] Elizabeth Perea DO SPEC NUM: [id number] RECD: 10/21/23 STATUS: ANUSHA BECKY NUM: [id number] CECILE: 10/21/23- SUBM DR: Elizabeth Perea DO ENTERED: 10/21/23 [facility] DR: SPEC TYPE: Surgical DEPT: S ORDERED: HE/6, Gross/Micro L4/3, H PYLORI, IHC First AB ORDERED: HE/6, Gross/Micro L4/3, H PYLORI, IHC First AB Pathological Diagnosis A. Small bowel, biopsy: ? No active enteritis, sprue?like changes or other diagnostic abnormalities. B. Stomach, biopsy: ? Benign gastric mucosa featuring mild antral pit epithelial hyperplasia, suggestive of a reactive gastropathy. ? No active gastritis or intestinal metaplasia. ? Properly controlled immunohistochemical stain negative for Helicobacter pylori organisms. C. Gastric polyp, biopsy: ? Benign fundic gland polyp. Gross Description Received are 3 formalin filled containers, each labeled with the patient's name, date of and specific specimen site. A. Further labeled small bowel biopsies is a 0.2 x 0.2 x 0.1 cm menjivar mucosal tissue fragment, entirely submitted in A1. B. Further labeled gastric biopsies is a 0.4 x 0.2 x 0.1 cm menjivar mucosal tissue fragment, entirely submitted in B1. Specimen: [id number] Received: 10/21/23 Status: ANUSHA Collier Num: [id number] Spec Type: Surgical Subm Dr: Elizabeth Perea DO Tissues: A Small Intestine - Biopsy/Polyp (SMALL BOWEL) B GASTRIC FOR HP (GASTRIC HP) C Gastric Biopsy (GASTRIC POLYP) Procedures: HE/6, Gross/Micro L4/3, H PYLORI, IHC First AB Patient: Eliza Coello Sharonda [id number] (Continued) Specimen: [id number] Received: 10/21/23 (Continued) Gross Description (Continued) Signed (signature on file) Rossana Solares MD 10/22/23 1633 Specimen: [id number] Received: 10/21/23 Status: ANUSHA Collier Num: [id number] Spec Type: Surgical Subm Dr: Elizabeth Perea DO Tissues: A Small Intestine - Biopsy/Polyp (SMALL BOWEL) B GASTRIC FOR HP (GASTRIC HP) C Gastric Biopsy (GASTRIC POLYP) Procedures: HE/6, Gross/Micro L4/3, H PYLORI, IHC First AB Patient: Eliza Coello Sharonda [id number] (Continued) Specimen: [id number] Received: 10/21/23 (Continued) Gross Description (Continued) C. Further labeled gastric polyp is a 0.4 x 0.2 x 0.1 cm menjivar mucosal tissue fragment, entirely submitted in C1. Clinical history: Rule out celiac, rule out H. pylori. CPT Codes 85627u0, 33472 Specimen: [id number] Received: 10/21/23 Status: ANUSHA Collier Num: [id number] Spec Type: Surgical Subm Dr: Elizabeth Perea, DO Tissues: A Small Intestine - Biopsy/Polyp (SMALL BOWEL) B GASTRIC FOR HP (GASTRIC HP) C Gastric Biopsy (GASTRIC POLYP) Procedures: HE/6, Gross/Micro L4/3, H PYLORI, IHC First AB Patient: Eliza Coello [id number] (Continued) Signed (signature on file) Rossana Solares MD 10/22/23 1633 Normal [facility] VC VENOUS REFLUX RT LMTon VC VENOUS REFLUX RT LMT Patient: ELIZA COELLO. Exam Date: 10/30/2022 : 1970 Gender:F Ordering : DR JOSH HONG . Admission #: [id number] Family : Order #: [id number] CLICK HERE TO VIEW EXAM RADIOLOGY REPORT [...] Compressibility: Normal. Flow: Moderate deep venous reflux. Facing Machine Operator: None. Tech Note: Incompetent varicose [...] MD on 10/30/2022 at 12:59 Normal [facility] CBC AUTO DIFFon 07-04-2022 BASO # 0.1 103/ul Normal 0.0-0.1 [facility] Comment on above: Performed By: #### T SH #### [facility] [address] [address] [address] Marlene Blanton Basophils/100 WBC (Bld) 0.6 % Normal 0.2-2.0 [facility] Comment on above: Performed By: #### T SH #### [facility] [address] [address] [address] Marlene Blanton EO # 0.0 103/ul Normal 0.0-0.7 [facility] Comment on above: Performed By: #### T SH #### [facility] [address] [place] [address] Dr. Marlene Blanton Eosinophils/100 WBC (Bld) 0.0 % Critically low 0.9-7.0 [facility] Comment on above: Performed By: #### T SH #### [facility] [address] [place] [address] Dr. Marlene Blanton Erythrocyte distribution width (RBC) [Ratio] 13.3 % Normal 11.0-15.0 [facility] Comment on above: Performed By: #### T SH #### [facility] [address] [place] [address] Dr. Marlene Blanton Hematocrit (Bld) [Volume fraction] 42.3 % Normal 36.0-48.0 [facility] Comment on above: Performed By: #### T SH #### [facility] [address] [place] [address] Dr. Marlene Blanton Hemoglobin (Bld) [Mass/Vol] 13.0 g/dL Normal 12.0-16.0 [facility] Comment on above: Performed By: #### T SH #### [facility] [address] [place] [address] Dr. Marlene Blanton IG # 0.04 10e3/ul Critically high 0.00-0.03 [facility] Comment on above: Performed By: #### T SH #### [facility] [address] [place] [address] Dr. Marlene Blanton IG % 0.4 % Normal 0.0-0.5 [facility] Comment on above: Performed By: #### T SH #### [facility] [address] [place] [address] Dr. Marlene Blanton LYMPH # 2.0 103/ul Normal 1.2-3.8 [facility] Comment on above: Performed By: #### T SH #### [facility] [address] [place] [address] Dr. Marlene Blanton Lymphocytes/100 WBC (Bld) 19.0 % Critically low 20.5-60.0 [facility] Comment on above: Performed By: #### T SH #### [facility] [address] [place] [address] Dr. Marlene Blanton MANUAL DIFF REQ NO Normal [facility] Comment on above: Performed By: #### T SH #### [facility] [address] [place] [address] Dr. Marlene Blanton MCH (RBC) [Entitic mass] 29.6 pg Normal 26.7-34.0 [facility] Comment on above: Performed By: #### T SH #### [facility] [address] [place] [address] Dr. Marlene Blanton MCHC (RBC) [Mass/Vol] 30.7 g/dL Normal 29.9-35.2 [facility] Comment on above: Performed By: #### T SH #### [facility] [address] [place] [address] Dr. Marlene Blanton MCV (RBC) [Entitic vol] 96.4 fL Normal 81.0-99.0 [facility] Comment on above: Performed By: #### T SH #### [facility] [address] [place] [address] Dr. Marlene Blanton MONO # 0.7 103/ul Normal 0.3-0.8 [facility] Comment on above: Performed By: #### T SH #### [facility] [address] [place] [address] Dr. Marlene Blanton Monocytes/100 WBC (Bld) 6.6 % Normal 1.7-12.0 [facility] Comment on above: Performed By: #### T SH #### [facility] [address] [place] [address] Dr. Marlene Blanton NEUT # 7.7 103/ul Critically high 1.4-6.5 [facility] Comment on above: Performed By: #### T SH #### [facility] [address] [place] [address] Dr. Marlene Blanton Neutrophils/100 WBC (Bld) 73.4 % Normal 43.0-75.0 [facility] Comment on above: Performed By: #### T SH #### [facility] [address] [place] [address] Dr. Marlene Blanton Platelet mean volume (Bld) [Entitic vol] 8.9 fL Critically low 9.5-13.5 [facility] Comment on above: Performed By: #### T SH #### [facility] [address] [place] [address] Dr. Marlene Blanton PLT 288 103/ul Normal 150-450 [facility] Comment on above: Performed By: #### T SH #### [facility] [address] [place] [address] Dr. Marlene Blanton RBC 4.39 106/ul Normal 4.20-5.40 [facility] Comment on above: Performed By: #### T SH #### [facility] [address] [place] [address] Dr. Marlene Blanton WBC 10.5 103/ul Normal 4.0-11.0 [facility] Comment on above: Performed By: #### T SH #### [facility] [address] [place] [address] Dr. Marlene Blanton FREE T4on 07-04-2022 Free T4 [Mass/Vol] 0.98 ng/dL Normal 0.76-1.46 [facility] Comment on above: Performed By: #### F T4 #### [facility] [address] [place] [address] Dr. Marlene Blanton PROTIMEon 07-04-2022 INR Coag (PPP) [Relative time] 0.95 {INR} Normal [facility] Comment on above: Performed By: #### P T, PTT #### [facility] [address] [place] [address] Dr. Marlene Blanton INR GUIDELINES SEE BELOW Normal [facility] Comment on above: Result Comment: GLEN RED INR: 2.0 - 3.0 CONDITIONS NOT LISTED BELOW 2.5 - 3.5 FOR PROSTHETIC HEART VALVE REPLACEMENT 2.5 - 3.5 RECURRENT THROMBOSIS Performed By: #### P T, PTT #### [facility] [address] [place] [address] Dr. Marlene Blanton PT Coag (PPP) [Time] 10.1 s Normal 9.0-11.6 [facility] Comment on above: Performed By: #### P T, PTT #### [facility] [address] [place] [address] Dr. Marlene Blanton PTTon 07-04-2022 aPTT Coag (Bld) [Time] 27.2 s Normal 22.3-36.2 [facility] Comment on above: Performed By: #### P T, PTT #### [facility] [address] [place] [address] Dr. Marlene Blanton TSHon 07-04-2022 TSH 1.916 uIU/mL Normal 0.358-3.740 [facility] Comment on above: Performed By: #### T SH #### [facility] [address] [place] [address] Dr. Marlene Blanton BUNon 06-21-2022 Urea nitrogen [Mass/Vol] 8.0 mg/dL Normal 7.0-18.0 [facility] Comment on above: Performed By: #### C BC #### [facility] [address] [place] [address] Dr. Marlene Blanton CBC AUTO DIFFon 06-21-2022 BASO # 0.0 103/ul Normal 0.0-0.1 [facility] Comment on above: Performed By: #### T SH #### [facility] [address] [place] [address] Dr. Marlene Blanton Basophils/100 WBC (Bld) 0.2 % Normal 0.2-2.0 [facility] Comment on above: Performed By: #### T SH #### [facility] [address] [place] [address] Dr. Marlene Blanton EO # 0.0 103/ul Normal 0.0-0.7 [facility] Comment on above: Performed By: #### T SH #### [facility] [address] [place] [address] Dr. Marlene Blanton Eosinophils/100 WBC (Bld) 0.1 % Critically low 0.9-7.0 [facility] Comment on above: Performed By: #### T SH #### [facility] [address] [place] [address] Dr. Marlene Blanton Erythrocyte distribution width (RBC) [Ratio] 13.4 % Normal 11.0-15.0 [facility] Comment on above: Performed By: #### T SH #### [facility] [address] [place] [address] Dr. Marlene Blanton Hematocrit (Bld) [Volume fraction] 33.6 % Critically low 36.0-48.0 [facility] Comment on above: Performed By: #### T SH #### [facility] [address] [place] [address] Dr. Marlene Blanton Hemoglobin (Bld) [Mass/Vol] 10.8 g/dL Critically low 12.0-16.0 [facility] Comment on above: Result Comment: post surgery Performed By: #### T SH #### [facility] [address] [place] [address] Dr. Marlene Blanton IG # 0.06 10e3/ul Critically high 0.00-0.03 [facility] Comment on above: Performed By: #### T SH #### [facility] [address] [place] [address] Dr. Marlene Blanton IG % 0.5 % Normal 0.0-0.5 [facility] Comment on above: Performed By: #### T SH #### [facility] [address] [place] [address] Dr. Marlene Blanton LYMPH # 2.0 103/ul Normal 1.2-3.8 [facility] Comment on above: Performed By: #### T SH #### [facility] [address] [place] [address] Dr. Marlene Blanton Lymphocytes/100 WBC (Bld) 16.1 % Critically low 20.5-60.0 [facility] Comment on above: Performed By: #### T SH #### [facility] [address] [place] [address] Dr. Marlene Blanton MANUAL DIFF REQ NO Normal [facility] Comment on above: Performed By: #### T SH #### [facility] [address] [place] [address] Dr. Marlene Blanton MCH (RBC) [Entitic mass] 29.0 pg Normal 26.7-34.0 [facility] Comment on above: Performed By: #### T SH #### [facility] [address] [place] [address] Dr. Marlene Blanton MCHC (RBC) [Mass/Vol] 32.1 g/dL Normal 29.9-35.2 [facility] Comment on above: Performed By: #### T SH #### [facility] [address] [place] [address] Dr. Marlene Blanton MCV (RBC) [Entitic vol] 90.1 fL Normal 81.0-99.0 [facility] Comment on above: Performed By: #### T SH #### [facility] [address] [place] [address] Dr. Marlene Blanton MONO # 0.7 103/ul Normal 0.3-0.8 [facility] Comment on above: Performed By: #### T SH #### [facility] [address] [place] [address] Dr. Marlene Blanton Monocytes/100 WBC (Bld) 5.3 % Normal 1.7-12.0 [facility] Comment on above: Performed By: #### T SH #### [facility] [address] [place] [address] Dr. Marlene Blanton NEUT # 9.7 103/ul Critically high 1.4-6.5 [facility] Comment on above: Performed By: #### T SH #### [facility] [address] [place] [address] Dr. Marlene Blanton Neutrophils/100 WBC (Bld) 77.8 % Critically high 43.0-75.0 [facility] Comment on above: Performed By: #### T SH #### [facility] [address] [place] [address] Dr. Marlene Blanton Platelet mean volume (Bld) [Entitic vol] 8.5 fL Critically low 9.5-13.5 [facility] Comment on above: Performed By: #### T SH #### [facility] [address] [place] [address] Dr. Marlene Blanton PLT 248 103/ul Normal 150-450 [facility] Comment on above: Performed By: #### T SH #### [facility] [address] [place] [address] Dr. Marlene Blanton RBC 3.73 106/ul Critically low 4.20-5.40 [facility] Comment on above: Performed By: #### T SH #### [facility] [address] [place] [address] Dr. Marlene Blanton WBC 12.4 103/ul Critically high 4.0-11.0 [facility] Comment on above: Performed By: #### T SH #### [facility] [address] [place] [address] Dr. Marlene Blanton CREATININEon 06-21-2022 Creatinine [Mass/Vol] 0.87 mg/dL Normal 0.55-1.02 [facility] Comment on above: Performed By: #### C BC #### [facility] [address] [place] [address] Dr. Marlene Blanton EGFR-AF LITHUANIAN >60 Normal >=60 [facility] Comment on above: Performed By: #### C BC #### [facility] [address] [place] [address] Dr. Marlene Blanton EGFR-NON AF LITHUANIAN >60 Normal >=60 [facility] Comment on above: Performed By: #### C BC #### [facility] [address] [place] [address] Dr. Marlene Blanton CBC AUTO DIFFon 06-19-2022 BASO # 0.1 103/ul Normal 0.0-0.1 [facility] Comment on above: Performed By: #### C BC #### [facility] [address] [place] [address] Dr. Marlene Blanton Basophils/100 WBC (Bld) 0.5 % Normal 0.2-2.0 [facility] Comment on above: Performed By: #### C BC #### [facility] [address] [address] [address] Marlene Blanton EO # 0.0 103/ul Normal 0.0-0.7 [facility] Comment on above: Performed By: #### C BC #### [facility] [address] [place] [address] Dr. Marlene Blanton Eosinophils/100 WBC (Bld) 0.1 % Critically low 0.9-7.0 [facility] Comment on above: Performed By: #### C BC #### [facility] [address] [place] [address] Dr. Marlene Blanton Erythrocyte distribution width (RBC) [Ratio] 13.4 % Normal 11.0-15.0 [facility] Comment on above: Performed By: #### C BC #### [facility] [address] [place] [address] Dr. Marlene Blanton Hematocrit (Bld) [Volume fraction] 39.8 % Normal 36.0-48.0 [facility] Comment on above: Performed By: #### C BC #### [facility] [address] [place] [address] Dr. Marlene Blanton Hemoglobin (Bld) [Mass/Vol] 13.2 g/dL Normal 12.0-16.0 [facility] Comment on above: Performed By: #### C BC #### [facility] [address] [place] [address] Dr. Marlene Blanton IG # 0.05 10e3/ul Critically high 0.00-0.03 [facility] Comment on above: Performed By: #### C BC #### [facility] [address] [place] [address] Dr. Marlene Blanton IG % 0.5 % Normal 0.0-0.5 [facility] Comment on above: Performed By: #### C BC #### [facility] [address] [place] [address] Dr. Marlene Blanton LYMPH # 2.4 103/ul Normal 1.2-3.8 [facility] Comment on above: Performed By: #### C BC #### [facility] [address] [place] [address] Dr. Marlene Blanton Lymphocytes/100 WBC (Bld) 24.7 % Normal 20.5-60.0 [facility] Comment on above: Performed By: #### C BC #### [facility] [address] [place] [address] Dr. Marlene Blanton MANUAL DIFF REQ NO Normal [facility] Comment on above: Performed By: #### C BC #### [facility] [address] [place] [address] Dr. Marlene Blanton MCH (RBC) [Entitic mass] 29.7 pg Normal 26.7-34.0 [facility] Comment on above: Performed By: #### C BC #### [facility] [address] [place] [address] Dr. Marlene Blanton MCHC (RBC) [Mass/Vol] 33.2 g/dL Normal 29.9-35.2 [facility] Comment on above: Performed By: #### C BC #### [facility] [address] [place] [address] Dr. Marlene Blanton MCV (RBC) [Entitic vol] 89.4 fL Normal 81.0-99.0 [facility] Comment on above: Performed By: #### C BC #### [facility] [address] [place] [address] Dr. Marlene Blanton MONO # 0.8 103/ul Normal 0.3-0.8 [facility] Comment on above: Performed By: #### C BC #### [facility] [address] [place] [address] Dr. Marlene Blanton Monocytes/100 WBC (Bld) 7.9 % Normal 1.7-12.0 [facility] Comment on above: Performed By: #### C BC #### [facility] [address] [place] [address] Dr. Marlene Blanton NEUT # 6.3 103/ul Normal 1.4-6.5 [facility] Comment on above: Performed By: #### C BC #### [facility] [address] [place] [address] Dr. Marlene Blanton Neutrophils/100 WBC (Bld) 66.3 % Normal 43.0-75.0 [facility] Comment on above: Performed By: #### C BC #### [facility] [address] [place] [address] Dr. Marlene Blanton Platelet mean volume (Bld) [Entitic vol] 8.3 fL Critically low 9.5-13.5 [facility] Comment on above: Performed By: #### C BC #### [facility] [address] [place] [address] Dr. Marlene Blanton PLT 300 103/ul Normal 150-450 [facility] Comment on above: Performed By: #### C BC #### [facility] [address] [place] [address] Dr. Marlene Blanton RBC 4.45 106/ul Normal 4.20-5.40 [facility] Comment on above: Performed By: #### C BC #### [facility] [address] [place] [address] Dr. Marlene Blanton WBC 9.6 103/ul Normal 4.0-11.0 [facility] Comment on above: Performed By: #### C BC #### [facility] [address] [place] [address] Dr. Marlene Blanton PREG QUANT HCGon 06-19-2022 HCG QUANT 1 mIU/mL Normal [facility] Comment on above: Performed By: #### P REGQNT #### [facility] [address] [place] [address] Dr. Marlene Blanton HCG RANGE SEE BELOW Normal [facility] Comment on above: Result Comment: 5-50 0.2-1 WEEK 50-500 1-2 WEEKS 100-5,000 2-3 WEEKS 500-10,000 3-4 WEEKS 1,000-50,000 4-5 WEEKS 10,000-100,000 5-6 WEEKS 15,000-200,000 6-8 WEEKS 10,000-100,000 2-3 MONTHS Performed By: #### P REGQNT #### [facility] [address], [place] [address] Dr. Marlene Blanton TYPE AND SCREENon 06-19-2022 TYPE AND SCREEN Negative Normal The [facility] Comment on above: Performed By: #### C BC #### [facility] [address] [place] [address] [address] [address] Marlene Blanton ASYMPTOMATIC COVID-19 ANTIGE Non 05-28-2022 EUA Statement SEE BELOW Normal [facility] Comment on above: Result Comment: This test [...] sooner. Performed By: #### C BC #### [facility] [id number] Marlene Blanton SARS-CoV-2 (COVID-19) RNA [place]+probe Ql (Unsp spec) Positive Critically abnormal NEGATIVE [facility] Comment on above: Result Comment: SARS -CoV-2 antigen present; does not rule out coinfection with other pathogens. Performed By: #### C BC #### [facility] [address] [place] [address] [address] Marlene Blanton [facility]-24 SARS-CoV-2 (COVID-19) RNA [place]+probe Ql (Unsp spec) Detected Critically abnormal NOT DETECTED [facility] Comment on above: Result Comment: This test is not yet approved or cleared by the [place] FDA. When there are no FDA-approved or cleared tests available, and other criteria are met, FDA can make tests available under an emergency access mechanism called an Emergency Use Authorization (EUA). The EUA for this test is supported by the [place] of Health and Human Service's declaration that [...] used). Performed By: #### C VDTB #### [facility] [address] [place] [address] Dr. Marlene Blanton PAP ACOG PANEL 2: 30 to 65on 05-15-2022 . . Normal [facility] Comment on above: Result Comment: Perf ormed at: WB Performed By: #### [id number] #### [facility] [address] [place] [address] Dr. Marlene Blanton Age Gdln ACOG Testing 30-65 Normal [facility] Comment on above: Performed By: #### 4 [id number] #### [facility] [address] [place] [address] Dr. Marlene Blanton DIAGNOSIS: Comment Normal [facility] Comment on above: Result Comment: NEGA TIVE FOR INTRAEPITHELIAL LESION OR MALIGNANCY. FUNGAL ORGANISMS MORPHOLOGICALLY CONSISTENT WITH BAILEY SPECIES ARE PRESENT. Performed at: WB Performed By: #### 4 [id number] #### [facility] [address] [place] [address] Dr. Marlene Blanton HPV Aptima Negative Normal Negative [facility] Comment on above: Result Comment: This nucleic acid amplification test detects fourteen high-risk HPV types (16,18,31,33,35,39,45,51,52,56,58,59,66,68) without differentiation. Performed at: =G Performed By: #### 4 [id number] #### [facility] [address] [place] [address] Dr. Marlene Blanton HPV Genotype Reflex Comment Normal [facility] Comment on above: Result Comment: Crit eria not met, HPV Genotype not performed. Performed at: WB Performed By: #### 4 [id number] #### [facility] [address] [place] [address] Dr. Marlene Blanton Methodology: Comment Normal [facility] Comment on above: Result Comment: This liquid based ThinPrep(R) pap test was screened with the use of an image guided system. Performed at: WB Performed By: #### 4 [id number] #### [facility] [address] [place] [address] Dr. Marlene Blanton Note: Comment Normal [facility] Comment on above: Result Comment: The Pap smear is a screening test designed to aid in the detection of premalignant and malignant conditions of the uterine cervix. It is not a diagnostic procedure and should not be used as the sole means of detecting cervical cancer. Both false-positive and false-negative reports do occur. . Performed at: WB Performed By: #### [id number] #### [facility] [address] [place] [address] Dr. Marlene Blanton Performed by: Comment Normal [facility] Comment on above: Result Comment: Marycruz Gillespie Neuro Intensivist Physician (ASCP) Performed at: WB Performed By: #### 4 [id number] #### [facility] [address] [place] [address] Dr. Marlene Blanton Specimen adequacy: Comment Normal [facility] Comment on above: Result Comment: Sati sfactory for evaluation. No endocervical component is identified. Performed at: WB Performed By: #### 4 [id number] #### [facility] [address] [place] [address] Dr. Marlene Blanton MG MAMM SCREEN 3D JENNIFER CADon 05-14-2022 MG MAMM SCREEN 3D JENNIFER CAD Patient: ELIZA COELLO Exam Date: 05/14/2022 : 1970 Gender:F Ordering : DR JAVID WATSON . Admission #: [id number] Family : DR JOSH HONG . Order #: [id number] CLICK HERE TO VIEW EXAM RADIOLOGY REPORT [...] melanoma cancer at age 19. LOCATION: [facility] BREAST COMPOSITION: Heterogeneously dense,which may obscure [...] M.D. on 05/14/2022 at 14:48 Normal [facility] US PELVIS AND TRANSVAGon US PELVIS [...] ROSSANA VELÁSQUEZ Date: 2022-05-09 13:04 Normal [facility] CBC AUTO DIFFon 05-08-2022 BASO # 0.1 103/ul Normal 0.0-0.1 [facility] Comment on above: Performed By: #### T SH #### [facility] [address] [address] [address] Marlene Blanton Basophils/100 WBC (Bld) 0.7 % Normal 0.2-2.0 [facility] Comment on above: Performed By: #### T SH #### [facility] [address] [address] [address] Marlene Blanton EO # 0.0 103/ul Normal 0.0-0.7 [facility] Comment on above: Performed By: #### T SH #### [facility] [address] [place] [address] Dr. Marlene Blanton Eosinophils/100 WBC (Bld) 0.0 % Critically low 0.9-7.0 [facility] Comment on above: Performed By: #### T SH #### [facility] [address] [place] [address] Dr. Marlene Blanton Erythrocyte distribution width (RBC) [Ratio] 13.4 % Normal 11.0-15.0 [facility] Comment on above: Performed By: #### T SH #### [facility] [address] [place] [address] Dr. Marlene Blanton Hematocrit (Bld) [Volume fraction] 42.1 % Normal 36.0-48.0 [facility] Comment on above: Performed By: #### T SH #### [facility] [address] [place] [address] Dr. Marlene Blanton Hemoglobin (Bld) [Mass/Vol] 13.8 g/dL Normal 12.0-16.0 [facility] Comment on above: Performed By: #### T SH #### [facility] [address] [place] [address] Dr. Marlene Blanton IG # 0.04 10e3/ul Critically high 0.00-0.03 [facility] Comment on above: Performed By: #### T SH #### [facility] [address] [place] [address] Dr. Marlene Blanton IG % 0.4 % Normal 0.0-0.5 [facility] Comment on above: Performed By: #### T SH #### [facility] [address] [place] [address] Dr. Marlene Blanton LYMPH # 2.1 103/ul Normal 1.2-3.8 [facility] Comment on above: Performed By: #### T SH #### [facility] [address] [place] [address] Dr. Marlene Blanton Lymphocytes/100 WBC (Bld) 23.3 % Normal 20.5-60.0 [facility] Comment on above: Performed By: #### T SH #### [facility] [address] [place] [address] Dr. Marlene Blanton MANUAL DIFF REQ NO Normal [facility] Comment on above: Performed By: #### T SH #### [facility] [address] [place] [address] Dr. Marlene Blanton MCH (RBC) [Entitic mass] 29.3 pg Normal 26.7-34.0 [facility] Comment on above: Performed By: #### T SH #### [facility] [address] [place] [address] Dr. Marlene Blanton MCHC (RBC) [Mass/Vol] 32.8 g/dL Normal 29.9-35.2 [facility] Comment on above: Performed By: #### T SH #### [facility] [address] [place] [address] Dr. Marlene Blanton MCV (RBC) [Entitic vol] 89.4 fL Normal 81.0-99.0 [facility] Comment on above: Performed By: #### T SH #### [facility] [address] [place] [address] Dr. Marlene Blanton MONO # 0.7 103/ul Normal 0.3-0.8 [facility] Comment on above: Performed By: #### T SH #### [facility] [address] [place] [address] Dr. Marlene Blanton Monocytes/100 WBC (Bld) 7.3 % Normal 1.7-12.0 [facility] Comment on above: Performed By: #### T SH #### [facility] [address] [place] [address] Dr. Marlene Blanton NEUT # 6.1 103/ul Normal 1.4-6.5 [facility] Comment on above: Performed By: #### T SH #### [facility] [address] [place] [address] Dr. Marlene Blanton Neutrophils/100 WBC (Bld) 68.3 % Normal 43.0-75.0 [facility] Comment on above: Performed By: #### T SH #### [facility] [address] [place] [address] Dr. Marlene Blanton Platelet mean volume (Bld) [Entitic vol] 8.8 fL Critically low 9.5-13.5 [facility] Comment on above: Performed By: #### T SH #### [facility] [address] [place] [address] Dr. Marlene Blanton PLT 310 103/ul Normal 150-450 [facility] Comment on above: Performed By: #### T SH #### [facility] [address] [place] [address] Dr. Marlene Blanton RBC 4.71 106/ul Normal 4.20-5.40 [facility] Comment on above: Performed By: #### T SH #### [facility] [address] [place] [address] Dr. Marlene Blanton WBC 9.0 103/ul Normal 4.0-11.0 [facility] Comment on above: Performed By: #### T SH #### [facility] [address] [place] [address] Dr. Marlene Blanton FREE T4on 05-08-2022 Free T4 [Mass/Vol] 1.09 ng/dL Normal 0.76-1.46 [facility] Comment on above: Performed By: #### T SH #### [facility] [address] [place] [address] Dr. Marlene Blanton PREG QUANT HCGon 05-08-2022 HCG QUANT 1 mIU/mL Normal [facility] Comment on above: Performed By: #### T SH, PREGQNT #### [facility] [address] [place] [address] Dr. Marlene Blanton HCG RANGE SEE BELOW Normal [facility] Comment on above: Result Comment: 5-50 0.2-1 WEEK 50-500 1-2 WEEKS 100-5,000 2-3 WEEKS 500-10,000 3-4 WEEKS 1,000-50,000 4-5 WEEKS 10,000-100,000 5-6 WEEKS 15,000-200,000 6-8 WEEKS 10,000-100,000 2-3 MONTHS Performed By: #### T SH, PREGQNT #### [facility] [address] [place] [address] Dr. Marlene Blanton PROTIMEon 05-08-2022 INR Coag (PPP) [Relative time] 0.95 {INR} Normal [facility] Comment on above: Performed By: #### C BC #### [facility] [address] [place] [address] Dr. Marlene Blanton INR GUIDELINES SEE BELOW Normal [facility] Comment on above: Result Comment: GLEN RED INR: 2.0 - 3.0 CONDITIONS NOT LISTED BELOW 2.5 - 3.5 FOR PROSTHETIC HEART VALVE REPLACEMENT 2.5 - 3.5 RECURRENT THROMBOSIS Performed By: #### C BC #### [facility] [address] [place] [address] Dr. Marlene Blanton PT Coag (PPP) [Time] 10.3 s Normal 9.0-11.6 [facility] Comment on above: Performed By: #### C BC #### [facility] [address] [place] [address] Dr. Marlene Blanton PTTon 05-08-2022 aPTT Coag (Bld) [Time] 26.3 s Normal 22.3-36.2 [facility] Comment on above: Performed By: #### C BC #### [facility] [address] [place] [address] Dr. Marlene Blanton TSHon 05-08-2022 TSH 4.001 uIU/mL Critically high 0.358-3.740 [facility] Comment on above: Performed By: #### T SH, PREGQNT #### [facility] [address] [place] [address] Dr. Marlene Blanton Reminderson 06-01-2020 Reminders - From: Jesenia Price LPN To: GSN - Clinical; Sent: 06/01/2020 08:20:44 EST Show up: 04/24/2030 09:00:00 EDT Subject: colonoscopy recall Due Date/Time: 05/24/2030 09:00:00 EST Reminder/Recall Patient is due for screening colonoscopy 05/24/2030. Normal [facility] Ambulatory Clinical Summaryo n 05-31-2020 Ambulatory Clinical Summary {[id number]}CD:[id number] Normal [facility] General Surgery Office/Clini c Noteon 05-31-2020 [...] for screening. Follow-up With When Contact Information Corby BUITRAGO MD Only if needed [address] [employer] [address] [place] [phone] Additional Instructions: Problem List/Past Medical History Ongoing [...] malignant neoplasm of female breast: Mother. Normal [facility] Comment on above: Result Comment: Elec tronically Signed By: Corby BUITRAGO MD\.br\Date and Time Signed: 05/31/20 16:31 EST Pathology Noteon 05-29-2020 Pathology Note [id number] D:127 Normal [facility] Outside Colonoscopyon 2019 Outside Colonoscopy [id number] D:127 [facility] Lab Reportson 05-25-2020 Lab Reports [id number] D:127 [facility] Provider Letter FTMCon 05-12 Provider Letter [place] Josh Hong, [address] [place] [address] Re: ELIZA COELLO Date of : 1970 Thank you for your referral of Eliza Coello who was seen on consultation on May 09, 2020, for rectal bleeding, abdominal pain with bowel movements. A colonoscopy is ordered for further evaluation. I will be happy to follow Eliza. Sincerely, Corby Buitrago MD General Surgery Normal [facility] Ambulatory Clinical Summaryo n 05-09-2020 Ambulatory Clinical Summary {[id number]}CD:[id number] Normal [facility] General Surgery Office/Clini c Noteon 05-09-2020 [...] available Patient Education Exercise to Stay Healthy, Vtai-fy-Hegv Problem List/Past Medical History Ongoing Abdominal pain, [...] malignant neoplasm of female breast: Mother. Normal [facility] Comment on above: Result Comment: Elec tronically Signed By: GABRIEL LAUREN, Corby Stauffer\Date and [...] 08/31/2012 Document Reviewed: 07/12/2011 [employer]? Patient Information ?2014 [employer]. Normal [facility] Physician Referralon 16- 020 Physician Referral [id number] D:127 Normal [facility] Vital Signs Date Time Vital Sign Value Performing Clinician Ashi joaquina 10-21-2023 14:00-0400 Diastolic blood pressure 72 mm[Hg] MD Josh Hong Work Phone: [facility] 10-21-2023 14:00-0400 Heart rate 77 /min MD Josh Hong Work Phone: [facility] 10-21-2023 14:00-0400 Respiratory rate 16 /min MD Josh Hong Work Phone: [facility] 10-21-2023 14:00-0400 SaO2% (BldA) [Mass fraction] 97 % MD Josh Hong Work Phone: [facility] 10-21-2023 14:00-0400 Systolic blood pressure 121 mm[Hg] MD Josh Hong Work Phone: [facility] 10-21-2023 10:52-0400 Body height 170.18 cm MD Josh Hong Work Phone: [facility] 10-21-2023 10:52-0400 Body weight 79.37 kg MD Josh Hong Work Phone: [facility] 10-03-2023 09:50-0400 Body height 170.18 cm MD Josh Hong Work Phone: [facility] 10-03-2023 09:50-0400 Body mass index (BMI) [Ratio] 28 kg/m2 MD Josh Hong Work Phone: [facility] 10-03-2023 09:50-0400 Body weight 81.19 kg MD Josh Hong Work Phone: [facility] 10-03-2023 09:50-0400 Diastolic blood pressure 79 mm[Hg] MD Josh Hong Work Phone: [facility] 10-03-2023 09:50-0400 Heart rate 74 /min MD Josh Hong Work Phone: [facility] 10-03-2023 09:50-0400 Systolic blood pressure 128 mm[Hg] MD Josh Hong Work Phone: [facility] Encounters Encounter Date Encounter Type Care Provider Facility Start: 10-21-2023 Non-patient / Non-visit MD Bennie Hong Work Phone: [facility] Work Phone: Start: 10-21-2023 End: 10-21-2023 ambulatory Elizabeth Perea Facility:[facility] Start: 10-21-2023 End: 10-21-2023 Admission to same day surgery center MD Josh Hong Work Phone: [facility] Work Phone: Start: 10-21-2023 End: 10-21-2023 ambulatory MD Josh Hong Work Phone: [facility] Work Phone: Start: 10-03-2023 End: 10-03-2023 Patient encounter procedure MD Josh Hong Work Phone: [facility] Work Phone: Start: 05-14-2023 End: 05-14-2023 ambulatory REID JORGE Not Available Start: 10-30-2022 End: 10-31-[address] JOSH HONG . Facility:[facility] Start: 07-04-2022 End: 07-05-[address] JAVID WATSON . Facility:[facility] Start: 06-21-2022 Encounter for preprocedural laboratory examination DR JAVID WATSON . [facility] Start: 06-20-2022 End: 06-21-[address] JAVID WATSON . Facility:[facility] Start: 06-19-2022 Encounter for preprocedural cardiovascular examination DR JAVID WATSON . [facility] Start: 06-19-2022 End: 06-20-[address] [...] 05-07-[address] JAVID WATSON . Facility:[facility] Procedures Date Procedure Procedure Detail Performing Clinician Start: 10-21-2023 Esophagogastroduodenoscopy MD Josh Hong Work Phone: Plan of Treatment Date Care Activity Detail Author Start: 10-21-2023 [facility] Patient Education Gastritis Stomach polyp s [facility] Work Phone: Payers Date Payer Category Payer Self-pay 1970 Unknown [id number] 2.16.84 [id number] 1970 Unknown [id number] 2.16.84 [id number] 1970 Unknown [id number] 2.16.84 [id number] 1970 Unknown [id number] 2.16.84 [id number] 1970 Unknown [id number] 2.16.84 [id number] 1969 Unknown [id number] 2.16.84 0.1.228791.3.579.2.593 1969 Unknown [id number] 2.16.84 0.1.535676.3.579.2.593 1969 Unknown [id number] 2.16.84 0.1.199145.3.579.2.593 1969 Unknown [id number] 2.16.84 0.1.481514.3.579.2.593 1969 Unknown [id number] 2.16.84 0.1.207211.3.579.2.593 1969 Unknown [id number] 2.16.84 0.1.329556.3.579.2.593 1969 Unknown [id number] 2.16.840 .1.499140.3.579.2.1259 1959 Unknown [id number] Unknown [id number] 2.16.8 [id number] Social History Date Type Detail Facility Start: [facility]21-[facility]23 [facility] Start: 1970 Sex Assigned At Female F [facility] Goals Date Patient Goal Desired Activity /State Procedure note 10-21-2023 Note Date & Type Note Facility 10-21-2023 Procedure note [facility] Procedure note 10-21-2023 Note Date & Type Note Facility 10-21-2023 Procedure note [facility] Clinical Note 06-20-2022 Note Date & Type Note Facility 06-20-2022 Note OPERATIVE NOTE OPERATION DATE: 06/20/2022 PROCEDURE: vNOTES hysterectomy with cystoscopy and bilateral salpingectomy. PREOPERATIVE DIAGNOSIS: Pelvic pressure, menorrhagia, dysmenorrhea, dyspareunia. POSTOPERATIVE DIAGNOSIS: Pelvic pressure, menorrhagia, dysmenorrhea, dyspareunia. ANESTHESIA: General. SURGEON: Javid Watson M.D. RECREATION SUPERVISOR: PIYUSH Howell URINE OUTPUT: Yellow and clear. [...] Sponge, lap, needle counts correct x2. [facility] Evaluation note Note Date & Type Note Facility Evaluation note Diagnosis Onset Date Abdominal pain acute Bloating acute GERD (gastroesophageal reflux disease) acute Mucus in stool acute [facility] Work Phone: History and physical note Note Date & Type Note Facility History and physical note Note Date/Time October 21, 2023 12:42pm [facility] [address] [place] [address] Gastroenterology H&P Signed Patient: Eliza Coelol MR#: [id number] : 1970 Acct:[id number] Age/Sex: 52 / F Adm Date: 4 Loc: Room: Type: [facility] Attending Dr: Elizabeth Perea DO Copies to: DO Josh Barrera MD~ Date of Service: 10/21/2023 HISTORY & PHYSICAL: Patient's history with special attention to the cardiovascular, pulmonary systems and the current problem was reviewed with the patient immediately prior to the procedure. Present medications and doses reviewed in the EMR. Allergies and pertinent laboratory tests were also reviewedat this time in the EMR. The physical examination, as below, was then performed. Indication, assessment and HPI: 52-year-old female who presents for EGD and colonoscopy for GERD, bloating, abdominal pain, mucus in stool. Last colonoscopy was in 2019 Family history of GI malignancy? No PHYSICAL EXAMINATION General appearance: cooperative, NAD Skin: No jaundice, no rash or lesions Head: NCAT Eyes: Anicteric Neck: Supple Lungs: Normal respiratory effort, no use of accessory muscles Abdomen: Soft, nondistended Neuro: No focal deficits, Ox3. REVIEW OF SYSTEMS Constitutional: Denies malaise, fevers Cardiovascular: Denies chest pain, palpitations Respiratory: Denies shortness of breath, wheezing Gastrointestinal: As per HPI Genitourinary: Denies dysuria, polyuria Musculoskeletal: Denies joint swelling, joint stiffness Neurological: Denies confusion, numbness, tingling Endocrine: Denies fatigue Written informed consent obtained from the patient. Risks (including but not limited to perforation, infection, bloating, bleeding, need for emergent surgeryand loss of life), benefits and alternatives explained and questions answered. The patient verbalized understanding. Based on history patient is an appropriate candidate for the procedure. Elizabeth Perea DO Documented By: Elizabeth Perea DO 10/21/23 1241 Signed By: <Electronically signed by Elizabeth Perea DO> 10/21/23 1242 [facility] Work Phone: Summary Purpose Family History No Family History Records Found Relationship Condition Age at Onset Recorded Date/T kalin Not Specified Deep vein thrombosis (DVT) Unknown Malignant neoplasm Unknown sister Hyperthyroidism Unknown Supraventricular tachycardia Unknown father Vitiligo Unknown Advance Directives No Advanced Directives Records Found Advance Directive Response Recorded Date/ Time Advance Directives No September 14 024 3:21pm Chief Complaint and Reason for Visit Chief Complaint acid reflux, bloatin g, ab pain, mucus in stool and pain, mucus in stool, gerd, bloating and pain, mucus in stool, gerd, bloating Reason for Visit Abdominal pain Bloating GERD (gastroesophageal reflux disease) Mucus in stool Additional Source Comments INFORMATION SOURCE (unrecogn ized section and content) DATE CREATED AUTHOR 06/15/2020 Maxton Calin [facility] DATE CREATED AUTHOR AUTHOR'S ORGANIZ ATION 11/03/2022 [facility] DATE CREATED AUTHOR AUTHOR'S ORGANIZ ATION 05/16/[address] [facility] Special[facility] EPIC DATE CREATED AUTHOR AUTHOR'S ORGANIZ ATION 10/31/2023 [facility] ysician Group Care Teams (unrecognized sec tion and content) Team Status: Active Member Role Status Dates Josh Hong MD Primary Care Provider Active Team Status: Inactive Member Role Status Dates Elizabeth Perea DO Attending Provider Active St art: October 03, 2023 End: October 03, 2023 Josh Hong MD Primary Care Provider Active Start: October 03, 2023 End: October 03, 2023 Team Status: Inactive Member Role Status Dates Josh Hong MD Primary Care Provider Active Start: October 21, 2023 End: October 21, 2023 Elizabeth Perea DO Attending Provider Active St art: October 21, 2023 End: October 21, 2023 Team Status: Active Member Role Status Dates Josh Hong MD Primary Care Provider Active Start: October 21, 2023 Elizabeth Perea DO Attending Provider, Other Provider Active Start: October 21, 2023 FOR RECORDS PERTAINING TO PATIENTS WHO ARE [...] BE BASED ON THE PRIMARY CLINICAL RECORDS. [facility]. provides no warranty or guarantee of the accuracy or completeness of information in this document.
--- NOTE | 2023-11-01 09:15 | US_ITS ---
The [address] [address] Patient Name: RENETTA COELLO MRN: [id number] date: 1970 Sex: F Assigned Patient Location: US Current Patient Location: Accession/Order Number: [id number] Exam Date: 11/01/2023 09:20 Report Date: 11/03/2023 15:03 At the request of: JOSH CONTRERAS Procedure: US pelvis w/ transvaginal EXAMINATION: US pelvis w/ transvaginal HISTORY: PELVIC MASS COMPARISON: No relevant comparison available. FINDINGS: The uterus is surgically absent The right ovary is not visualized The left ovary measures 5.6 x 4.8 x 5.6 cm. Normal color and Doppler flow in the soft tissue components. Area of anechoic echogenicity measuring 5.1 x 2.8 x 3.7 cm with scattered low-level echoes/septations but no internal color flow No free fluid US/US pelvis w/ transvaginal IMPRESSION: 5.1 cm left ovarian complex cyst Electronically authenticated by: ROSSANA VELÁSQUEZ Date: 11/03/2023 15:03
== END 2023-11-01 09:07 | disposition home or self-care (01) ==
LOC: US 09:07
PROVIDERS: PCP Family Medicine; Visit Provider Family Medicine
DX: R19.00 Intra-abdominal and pelvic swelling, mass and lump, unspecified site (principal); N83.292 Other ovarian cyst, left side
CPT/HCPCS: 76830; 76856

== ENCOUNTER 2023-11-04 11:51 | Outpatient (OUT) | payer OTHER, SELFPAY ==
[2023-11-04 12:22] LABS: Lactate Dehydrogenase 196 U/L (81-234)
[2023-11-05 04:09] LABS: AFP, Serum, Tumor Marker 2.9 ng/mL (0.0-9.2); CEA 0.7 ng/mL (0.0-4.7); Cancer Antigen (CA) 125 16.1 U/mL (0.0-38.1); HCG Tumor Marker <1 mIU/mL (.)
== END 2023-11-04 11:52 | disposition home or self-care (01) ==
LOC: LAB 11:53
PROVIDERS: PCP Family Medicine; Visit Provider Obstetrics & Gynecology
DX: N83.299 Other ovarian cyst, unspecified side (principal)
CPT/HCPCS: 36415; 82105; 82378; 83615; 84702; 86304

== ENCOUNTER 2023-12-16 10:06 | Outpatient (OUT) | payer OTHER, SELFPAY ==
--- NOTE | 2023-12-16 | ECG_ITS ---
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
--- OUTSIDE RECORDS SUMMARY | 2023-12-16 10:14 | XMS_ITS ---
Patient Summarization (C-CDA 2.1 CCD) Created on: December 16, 2023 OUMOU ELIZA M : 1970 Sex: Female Author Organization Sample organization Care Team Providers Care Yard Switcher Name Role Phone DARCIE ., DR HUA [...] Attending Unavailable DYLAN, JOAN Admitting Unavailable DYLANJOAN BLOCK Consulting Unavailable DIANE ., DR MORENO Primary Care Unavailable DYLAN, JOAN Attending Unavailable DYLAN, JOAN Admitting Unavailable DARICE ., DR HUA Consulting Unavailable HOY ., DR MORENO Primary Care Unavailable DARCIE ., DR HUA Attending Unavailable DARCIE ., DR HUA Admitting Unavailable WEST[place], DR ROSSANA Teague Consulting Unavailable HOY ., DR MORENO Primary Care Unavailable DARCIE ., DR HUA Attending Unavailable DARCIE ., DR HUA Admitting Unavailable DARCIE ., DR HUA Consulting Unavailable DARCIE ., DR HUA Consulting Unavailable HOY ., DR MORENO Primary Care Unavailable DARCIE ., DR HUA Attending Unavailable DARCIE ., DR HUA Admitting Unavailable ZIEBER, DR CHEIKH Salguero Consulting Unavailable HOY ., DR MORENO Consulting Unavailable HOY ., DR MORENO Primary Care Unavailable HOY ., DR MORENO Attending Unavailable HOY ., DR MORENO Admitting Unavailable [place], DR ROSSANA Teague Consulting Unavailable MD Josh Hong Primary Care Provider [phone] Ly, DO Elizabeth Perez Attending Provider [phone] Elizabeth Block Attending Unavailable Brit, Elizabeth Perez Admitting Unavailable Josh Hong Primary Care Unavailable REID JORGE Attending Unavailable DARCIEJAVID Attending Unavailable Allergies Allergy Classification Reported Allergen(s) Allergy Type Date of Onset Reaction(s) Facility (2 sources) Fluconazole Drug Allergy 06-23-2021 [facility] Repository (1 source) levoFLOXacin Drug Allergy [facility] Repository (1 source) levoFLOXacin Drug Allergy 10-21-2023 [facility] Repository Encounters Encounter Date Encounter Type Care Provider Facility Start: 11-06-2023 End: 11-06-2023 ambulatory JAVID WATSON Not Available Start: 10-21-2023 Non-patient / Non-visit MD Bennie Hong Work Phone: [facility] Work Phone: Start: 10-21-2023 End: 10-21-2023 ambulatory Elizabeth L Ly Facility:[facility] Start: 10-21-2023 End: 10-21-2023 Admission to same day surgery center MD Josh Hong Work Phone: [facility] Work Phone: Start: 10-21-2023 End: 10-21-2023 ambulatory MD Josh Hong Work Phone: [facility] Work Phone: Start: 10-03-2023 End: 10-03-2023 Patient encounter procedure MD Josh Hong Work Phone: [facility] G[facility] Work Phone: Start: 05-14-2023 End: 05-14-2023 ambulatory REID JORGE Not Available Start: 10-30-2022 End: 10-31-[address] JOSH HONG . Facility:[facility] Start: 07-04-2022 End: 07-05-[address] JAVID WATSON . Facility:[facility] Start: 06-21-2022 Encounter for preprocedural laboratory examination DR JAVID WATSON . [facility] Start: 06-20-2022 End: 06-21-[address] JAVID WATSON . Facility:[facility] Start: 06-19-2022 Encounter for preprocedural cardiovascular examination DR JAVID WATSON . [facility] Start: 06-19-2022 End: 06-20-[address] [...] 05-07-[address] JAVID WATSON . Facility:[facility] Goals Date Patient Goal Desired Activity /State Medications Current Medications Medication Drug Class(es) Dates [...] 2 tablets by mouth once daily Vitamin M82-Qizok Acid Active 2 TAB PO Daily October [...] 03, 2023 12:00am October 08, 2023 12:30pm Payers Date Payer Category Payer Self-pay 1970 Unknown [id number] 2.16.84 [id number] 1970 Unknown [id number] 2.16.84 [id number] 1970 Unknown [id number] 2.16.84 [id number] 1970 Unknown [id number] 2.16.84 [id number] 1970 Unknown [id number] 2.16.84 [id number] 1970 Unknown [id number] 2.16.84 [id number] 1970 Unknown [id number] 2.16.84 [id number] 1970 Unknown [id number] 2.16.84 [id number] 1970 Unknown [id number] 2.16.84 [id number] 1970 Unknown [id number] 2.16.84 [id number] 1970 Unknown [id number] 2.16.84 [id number] 1970 Unknown [id number] 2.16.84 [id number] 1970 Unknown [id number] 2.16.840 .[id number] 1960 Unknown [id number] Unknown [id number] 2.16.8 [id number] Plan of Treatment Date Care Activity Detail Author Start: 10-21-2023 [facility] Patient Education Gastritis Stomach polyp s [facility] Work Phone: Problems Active Problems Problem Classification Problem Date [...] 07-03-2022 Episodic Other aftercare (1 source) 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; Translations: [OTH GROUP HOME CURRENT DRUG THERAPY] Onset: 07-03-2022 Episodic Other aftercare (1 source) skilled nursing (current) use of oral hypoglycemic drugs; Translations: [GROUP HOME USE ORAL HYPOGLYCEMIC DX] Onset: 07-03-2022 Episodic [...] [UTI SITE NOT SPECIFIED] Onset: 06-19-2022 Episodic Procedures Date Procedure Procedure Detail Performing Clinician Start: 10-21-2023 Esophagogastroduodenoscopy MD Josh Hong Work Phone: Results Test Name Value Interpretation Reference Range Facility [facility] 10-21-2023 L Specimen: [id number] Received: 10/21/23 Status: ANUSHA Collier Num: [id number] Spec Type: Surgical Subm Dr: Elizabeth Block DO Tissues: A Small Intestine - Biopsy/Polyp (SMALL BOWEL) B GASTRIC FOR HP (GASTRIC HP) C Gastric Biopsy (GASTRIC POLYP) Procedures: HE/6, Gross/Micro L4/3, H PYLORI, IHC First AB Age/ Patient Sex Location Account Attending Physician Eliza Coello 52/F [id number] Elizabeth Block DO SPEC NUM: [id number] RECD: 10/21/23 STATUS: ANUSHA COLLIER NUM: [id number] CECILE: 10/21/23- SUBM DR: Elizabeth Block DO ENTERED: 10/21/23 [facility] DR: SPEC TYPE: Surgical DEPT: S ORDERED: [...] tissue fragment, entirely submitted in B1. Specimen: [id number] Received: 10/21/23 Status: ANUSHA Collier Num: [id number] Spec Type: Surgical Subm Dr: Elizabeth Block DO Tissues: A Small Intestine - Biopsy/Polyp (SMALL BOWEL) B GASTRIC FOR HP (GASTRIC HP) C Gastric Biopsy (GASTRIC POLYP) Procedures: HE/6, Gross/Micro L4/3, H PYLORI, IHC First AB Patient: Eliza Coello Sharonda [id number] (Continued) Specimen: [id number] Received: 10/21/23 (Continued) Gross Description (Continued) Signed (signature on file) Rossana Solares MD 10/22/23 1633 Specimen: [id number] Received: 10/21/23 Status: ANUSHA Collier Num: [id number] Spec Type: Surgical Subm Dr: Elizabeth Block DO Tissues: A Small Intestine - Biopsy/Polyp (SMALL BOWEL) B GASTRIC FOR HP (GASTRIC HP) C Gastric Biopsy (GASTRIC POLYP) Procedures: HE/6, Gross/Micro L4/3, H PYLORI, IHC First AB Patient: Eliza Coello Sharonda [id number] (Continued) Specimen: [id number] Received: 10/21/23 (Continued) Gross Description (Continued) C. Further labeled gastric polyp is a 0.4 x 0.2 x 0.1 cm menjivar mucosal tissue fragment, entirely submitted in C1. Clinical history: Rule out celiac, rule out H. pylori. CPT Codes 23375s4, 33143 Specimen: [id number] Received: 10/21/23 Status: ANUSHA Collier Num: [id number] Spec Type: Surgical Subm Dr: Elizabeth Block DO Tissues: A Small Intestine - Biopsy/Polyp (SMALL BOWEL) B GASTRIC FOR HP (GASTRIC HP) C Gastric Biopsy (GASTRIC POLYP) Procedures: HE/6, Gross/Micro L4/3, H PYLORI, IHC First AB Patient: Eliza Coello [id number] (Continued) Signed (signature on file) Rossana Solares MD 10/22/23 1633 Normal [facility] VC VENOUS REFLUX RT [facility] VC VENOUS REFLUX RT [facility] Patient: ELIZA COELLO. Exam Date: 10/30/2022 : 1970 Gender:F Ordering : DR JOSH HONG . Admission #: [id number] Family : Order #: [id number] CLICK HERE TO VIEW EXAM RADIOLOGY REPORT [...] Compressibility: Normal. Flow: Moderate deep venous reflux. Dental Hygiene Instructor: None. Tech Note: Incompetent varicose vein lateral [...] MD on 10/30/2022 at 12:59 Normal [facility] CBC AUTO DIFFon 07-04-2022 BASO # 0.1 103/ul Normal 0.0-0.1 [facility] Comment on above: Performed By: #### T SH #### [facility] [address] [place] [address] Dr. Marlene Blanton Basophils/100 WBC (Bld) 0.6 % Normal 0.2-2.0 [facility] Comment on above: Performed By: #### T SH #### [facility] [address] [place] [address] Dr. Marlene Blanton EO # 0.0 103/ul Normal 0.0-0.7 [facility] Comment on above: Performed By: #### T SH #### [facility] [address] [place] [address] Dr. Marlene Blanton Eosinophils/100 WBC (Bld) 0.0 % Critically low 0.9-7.0 [facility] Comment on above: Performed By: #### T SH #### [facility] [address] [place] [address] Dr. Marlene Blanton Erythrocyte distribution width (RBC) [Ratio] 13.3 % Normal 11.0-15.0 [facility] Comment on above: Performed By: #### T SH #### [facility] [address] [place] [address] Dr. Marlene Blanton Hematocrit (Bld) [Volume fraction] 42.3 % Normal 36.0-48.0 [facility] Comment on above: Performed By: #### T SH #### [facility] [address] [place] [address] Dr. Marlene Blanton Hemoglobin (Bld) [Mass/Vol] 13.0 g/dL Normal 12.0-16.0 [facility] Comment on above: Performed By: #### T SH #### [facility] [address] [place] [address] Dr. Marlene Blatnon IG # 0.04 10e3/ul Critically high 0.00-0.03 [facility] Comment on above: Performed By: #### T SH #### [facility] [address] [place] [address] Dr. Marlene Blanton IG % 0.4 % Normal 0.0-0.5 [facility] Comment on above: Performed By: #### T SH #### [facility] [address] [place] [address] Dr. Marlene Blanton LYMPH # 2.0 103/ul Normal 1.2-3.8 [facility] Comment on above: Performed By: #### T SH #### [facility] [address] [place] [address] Dr. Marlene Blanton Lymphocytes/100 WBC (Bld) 19.0 % Critically low 20.5-60.0 [facility] Comment on above: Performed By: #### T SH #### [facility] [address] [place] [address] Dr. Marlene Blanton MANUAL DIFF REQ NO Normal [facility] Comment on above: Performed By: #### T SH #### [facility] [address] [place] [address] Dr. Marlene Blanton MCH (RBC) [Entitic mass] 29.6 pg Normal 26.7-34.0 [facility] Comment on above: Performed By: #### T SH #### [facility] [address] [place] [address] Dr. Marlene Blanton MCHC (RBC) [Mass/Vol] 30.7 g/dL Normal 29.9-35.2 [facility] Comment on above: Performed By: #### T SH #### [facility] [address] [place] [address] Dr. Marlene Blanton MCV (RBC) [Entitic vol] 96.4 fL Normal 81.0-99.0 [facility] Comment on above: Performed By: #### T SH #### [facility] [address] [place] [address] Dr. Marlene Blanton MONO # 0.7 103/ul Normal 0.3-0.8 [facility] Comment on above: Performed By: #### T SH #### [facility] [address] [place] [address] Dr. Marlene Blanton Monocytes/100 WBC (Bld) 6.6 % Normal 1.7-12.0 [facility] Comment on above: Performed By: #### T SH #### [facility] [address] [place] [address] Dr. Marlene Blanton NEUT # 7.7 103/ul Critically high 1.4-6.5 [facility] Comment on above: Performed By: #### T SH #### [facility] [address] [place] [address] Dr. Marlene Blanton Neutrophils/100 WBC (Bld) 73.4 % Normal 43.0-75.0 [facility] Comment on above: Performed By: #### T SH #### [facility] [address] [place] [address] Dr. Marlene Blanton Platelet mean volume (Bld) [Entitic vol] 8.9 fL Critically low 9.5-13.5 [facility] Comment on above: Performed By: #### T SH #### [facility] [address] [place] [address] Dr. Marlene Blanton PLT 288 103/ul Normal 150-450 [facility] Comment on above: Performed By: #### T SH #### [facility] [address] [place] [address] Dr. Marlene Blanton RBC 4.39 106/ul Normal 4.20-5.40 [facility] Comment on above: Performed By: #### T SH #### [facility] [address] [place] [address] Dr. Marlene Blanton WBC 10.5 103/ul Normal 4.0-11.0 [facility] Comment on above: Performed By: #### T SH #### [facility] [address] [place] [address] Dr. Marlene Blanton FREE T4on 07-04-2022 Free T4 [Mass/Vol] 0.98 ng/dL Normal 0.76-1.46 [facility] Comment on above: Performed By: #### F T4 #### [facility] [address] [place] [address] Dr. Marlene Blanton PROTIMEon 07-04-2022 INR Coag (PPP) [Relative time] 0.95 {INR} Normal [facility] Comment on above: Performed By: #### P T, PTT #### [facility] [address] [place] [address] Dr. Marlene Blanton INR GUIDELINES SEE BELOW Normal [facility] Comment on above: Result Comment: GLEN RED INR: 2.0 - 3.0 CONDITIONS NOT LISTED BELOW 2.5 - 3.5 FOR PROSTHETIC HEART VALVE REPLACEMENT 2.5 - 3.5 RECURRENT THROMBOSIS Performed By: #### P T, PTT #### [facility] [address] [place] [address] Dr. Marlene Blanton PT Coag (PPP) [Time] 10.1 s Normal 9.0-11.6 [facility] Comment on above: Performed By: #### P T, PTT #### [facility] [address] [place] [address] Dr. Marlene Blanton PTTon 07-04-2022 aPTT Coag (Bld) [Time] 27.2 s Normal 22.3-36.2 [facility] Comment on above: Performed By: #### P T, PTT #### [facility] [address] [place] [address] Dr. Marlene Blanton TSHon 07-04-2022 TSH 1.916 uIU/mL Normal 0.358-3.740 [facility] Comment on above: Performed By: #### T SH #### [facility] [address] [place] [address] Dr. Marlene Blanton BUNon 06-21-2022 Urea nitrogen [Mass/Vol] 8.0 mg/dL Normal 7.0-18.0 [facility] Comment on above: Performed By: #### C BC #### [facility] [address] [place] [address] Dr. Marlene Blanton CBC AUTO DIFFon 06-21-2022 BASO # 0.0 103/ul Normal 0.0-0.1 [facility] Comment on above: Performed By: #### T SH #### [facility] [address] [place] [address] Dr. Marlene Blanton Basophils/100 WBC (Bld) 0.2 % Normal 0.2-2.0 [facility] Comment on above: Performed By: #### T SH #### [facility] [address] [place] [address] Dr. Marlene Blanton EO # 0.0 103/ul Normal 0.0-0.7 [facility] Comment on above: Performed By: #### T SH #### [facility] [address] [place] [address] Dr. Marlene Blanton Eosinophils/100 WBC (Bld) 0.1 % Critically low 0.9-7.0 [facility] Comment on above: Performed By: #### T SH #### [facility] [address] [place] [address] Dr. Marlene Blanton Erythrocyte distribution width (RBC) [Ratio] 13.4 % Normal 11.0-15.0 [facility] Comment on above: Performed By: #### T SH #### [facility] [address] [place] [address] Dr. Marlene Blanton Hematocrit (Bld) [Volume fraction] 33.6 % Critically low 36.0-48.0 [facility] Comment on above: Performed By: #### T SH #### [facility] [address] [place] [address] Dr. Marlene Blanton Hemoglobin (Bld) [Mass/Vol] 10.8 g/dL Critically low 12.0-16.0 [facility] Comment on above: Result Comment: post surgery Performed By: #### T SH #### [facility] [address] [place] [address] Dr. Marlene Blanton IG # 0.06 10e3/ul Critically high 0.00-0.03 [facility] Comment on above: Performed By: #### T SH #### [facility] [address] [address] [address] Marlene Blanton IG % 0.5 % Normal 0.0-0.5 [facility] Comment on above: Performed By: #### T SH #### [facility] [address] [place] [address] Dr. Marlene Blanton LYMPH # 2.0 103/ul Normal 1.2-3.8 [facility] Comment on above: Performed By: #### T SH #### [facility] [address] [place] [address] Dr. Marlene Blanton Lymphocytes/100 WBC (Bld) 16.1 % Critically low 20.5-60.0 [facility] Comment on above: Performed By: #### T SH #### [facility] [address] [place] [address] Dr. Marlene Blanton MANUAL DIFF REQ NO Normal [facility] Comment on above: Performed By: #### T SH #### [facility] [address] [place] [address] Dr. Marlene Blanton MCH (RBC) [Entitic mass] 29.0 pg Normal 26.7-34.0 [facility] Comment on above: Performed By: #### T SH #### [facility] [address] [place] [address] Dr. Marlene Blanton MCHC (RBC) [Mass/Vol] 32.1 g/dL Normal 29.9-35.2 [facility] Comment on above: Performed By: #### T SH #### [facility] [address] [place] [address] Dr. Marlene Blanton MCV (RBC) [Entitic vol] 90.1 fL Normal 81.0-99.0 [facility] Comment on above: Performed By: #### T SH #### [facility] [address] [place] [address] Dr. Marlene Blanton MONO # 0.7 103/ul Normal 0.3-0.8 [facility] Comment on above: Performed By: #### T SH #### [facility] [address] [place] [address] Dr. Marlene Blanton Monocytes/100 WBC (Bld) 5.3 % Normal 1.7-12.0 [facility] Comment on above: Performed By: #### T SH #### [facility] [address] [place] [address] Dr. Marlene Blanton NEUT # 9.7 103/ul Critically high 1.4-6.5 [facility] Comment on above: Performed By: #### T SH #### [facility] [address] [place] [address] Dr. Marlene Blanton Neutrophils/100 WBC (Bld) 77.8 % Critically high 43.0-75.0 [facility] Comment on above: Performed By: #### T SH #### [facility] [address] [place] [address] Dr. Marlene Blanton Platelet mean volume (Bld) [Entitic vol] 8.5 fL Critically low 9.5-13.5 [facility] Comment on above: Performed By: #### T SH #### [facility] [address] [place] [address] Dr. Marlene Blanton PLT 248 103/ul Normal 150-450 [facility] Comment on above: Performed By: #### T SH #### [facility] [address] [place] [address] Dr. Marlene Blanton RBC 3.73 106/ul Critically low 4.20-5.40 [facility] Comment on above: Performed By: #### T SH #### [facility] [address] [place] [address] Dr. Marlene Blanton WBC 12.4 103/ul Critically high 4.0-11.0 [facility] Comment on above: Performed By: #### T SH #### [facility] [address] [place] [address] Dr. Marlene Blanton CREATININEon 12-30-2022 Creatinine [Mass/Vol] 0.87 mg/dL Normal 0.55-1.02 [facility] Comment on above: Performed By: #### C BC #### [facility] [address] [place] [address] Dr. Marlene Blanton EGFR-AF EQUATORIAL GUINEAN >60 Normal >=60 [facility] Comment on above: Performed By: #### C BC #### [facility] [address] [place] [address] Dr. Marlene Blanton EGFR-NON AF EQUATORIAL GUINEAN >60 Normal >=60 [facility] Comment on above: Performed By: #### C BC #### [facility] [address] [place] [address] Dr. Marlene Blanton CBC AUTO DIFFon 06-19-2022 BASO # 0.1 103/ul Normal 0.0-0.1 [facility] Comment on above: Performed By: #### C BC #### [facility] [address] [place] [address] Dr. Marlene Blanton Basophils/100 WBC (Bld) 0.5 % Normal 0.2-2.0 [facility] Comment on above: Performed By: #### C BC #### [facility] [address] [place] [address] Dr. Marlene Blanton EO # 0.0 103/ul Normal 0.0-0.7 [facility] Comment on above: Performed By: #### C BC #### [facility] [address] [place] [address] Dr. Marlene Blanton Eosinophils/100 WBC (Bld) 0.1 % Critically low 0.9-7.0 [facility] Comment on above: Performed By: #### C BC #### [facility] [address] [place] [address] Dr. Marlene Blanton Erythrocyte distribution width (RBC) [Ratio] 13.4 % Normal 11.0-15.0 [facility] Comment on above: Performed By: #### C BC #### [facility] [address] [place] [address] Dr. Marlene Blanton Hematocrit (Bld) [Volume fraction] 39.8 % Normal 36.0-48.0 [facility] Comment on above: Performed By: #### C BC #### [facility] [address] [place] [address] Dr. Marlene Blanton Hemoglobin (Bld) [Mass/Vol] 13.2 g/dL Normal 12.0-16.0 [facility] Comment on above: Performed By: #### C BC #### [facility] [address] [place] [address] Dr. Marlene Blanton IG # 0.05 10e3/ul Critically high 0.00-0.03 [facility] Comment on above: Performed By: #### C BC #### [facility] [address] [place] [address] Dr. Marlene Blanton IG % 0.5 % Normal 0.0-0.5 [facility] Comment on above: Performed By: #### C BC #### [facility] [address] [place] [address] Dr. Marlene Blanton LYMPH # 2.4 103/ul Normal 1.2-3.8 [facility] Comment on above: Performed By: #### C BC #### [facility] [address] [place] [address] Dr. Marlene Blanton Lymphocytes/100 WBC (Bld) 24.7 % Normal 20.5-60.0 [facility] Comment on above: Performed By: #### C BC #### [facility] [address] [place] [address] Dr. Marlene Blanton MANUAL DIFF REQ NO Normal [facility] Comment on above: Performed By: #### C BC #### [facility] [address] [place] [address] Dr. Marlene Blanton MCH (RBC) [Entitic mass] 29.7 pg Normal 26.7-34.0 [facility] Comment on above: Performed By: #### C BC #### [facility] [address] [place] [address] Dr. Marlene Blanton MCHC (RBC) [Mass/Vol] 33.2 g/dL Normal 29.9-35.2 [facility] Comment on above: Performed By: #### C BC #### [facility] [address] [place] [address] Dr. Marlene Blanton MCV (RBC) [Entitic vol] 89.4 fL Normal 81.0-99.0 [facility] Comment on above: Performed By: #### C BC #### [facility] [address] [place] [address] Dr. Marlene Blanton MONO # 0.8 103/ul Normal 0.3-0.8 [facility] Comment on above: Performed By: #### C BC #### [facility] [address] [place] [address] Dr. Marlene Blanton Monocytes/100 WBC (Bld) 7.9 % Normal 1.7-12.0 [facility] Comment on above: Performed By: #### C BC #### [facility] [address] [place] [address] Dr. Marlene Blanton NEUT # 6.3 103/ul Normal 1.4-6.5 [facility] Comment on above: Performed By: #### C BC #### [facility] [address] [place] [address] Dr. Marlene Blanton Neutrophils/100 WBC (Bld) 66.3 % Normal 43.0-75.0 [facility] Comment on above: Performed By: #### C BC #### [facility] [address] [place] [address] Dr. Marlene Blanton Platelet mean volume (Bld) [Entitic vol] 8.3 fL Critically low 9.5-13.5 [facility] Comment on above: Performed By: #### C BC #### [facility] [address] [place] [address] Dr. Marlene Blanton PLT 300 103/ul Normal 150-450 [facility] Comment on above: Performed By: #### C BC #### [facility] [address] [place] [address] Dr. Marlene Blanton RBC 4.45 106/ul Normal 4.20-5.40 [facility] Comment on above: Performed By: #### C BC #### [facility] [address] [place] [address] Dr. Marlene Blanton WBC 9.6 103/ul Normal 4.0-11.0 [facility] Comment on above: Performed By: #### C BC #### [facility] [address] [place] [address] Dr. Marlene Blanton PREG QUANT HCGon 06-19-2022 HCG QUANT 1 mIU/mL Normal [facility] Comment on above: Performed By: #### P REGQNT #### [facility] [address] [place] [address] Dr. Marlene Blanton HCG RANGE SEE BELOW Normal [facility] Comment on above: Result Comment: 5-50 0.2-1 WEEK 50-500 1-2 WEEKS 100-5,000 2-3 WEEKS 500-10,000 3-4 WEEKS 1,000-50,000 4-5 WEEKS 10,000-100,000 5-6 WEEKS 15,000-200,000 6-8 WEEKS 10,000-100,000 2-3 MONTHS Performed By: #### P REGQNT #### [facility] [address] [place] [address] Dr. Marlene Blanton TYPE AND SCREENon 06-19-2022 TYPE AND SCREEN Negative Normal [facility] Comment on above: Performed By: #### C BC #### [facility] [address] [place] [address] Dr. Marlene Blanton ASYMPTOMATIC COVID-19 ANTIGE Non 05-28-2022 EUA Statement SEE BELOW Normal [facility] Comment on above: Result Comment: This test [...] sooner. Performed By: #### C BC #### [facility] [address] [place] [address] Dr. Marlene Blanton SARS-CoV-2 (COVID-19) RNA [place]+probe Ql (Unsp spec) Positive Critically abnormal NEGATIVE [facility] Comment on above: Result Comment: SARS -CoV-2 antigen present; does not rule out coinfection with other pathogens. Performed By: #### C BC #### [facility] [address] [place] [address] Dr. Marlene Blanton Covid-19 PCR ([facility])on 04-24 SARS-CoV-2 (COVID-19) RNA [place]+probe Ql (Unsp spec) Detected Critically abnormal NOT DETECTED [facility] Comment on above: Result Comment: This test is not yet approved or cleared by the [place] FDA. When there are no FDA-approved or cleared tests available, and other criteria are met, FDA can make tests available under an emergency access mechanism called an Emergency Use Authorization (EUA). The EUA for this test is supported by the [place] of Health and Human Service's declaration that [...] used). Performed By: #### C VDTBH #### [facility] [address] [place] [address] Dr. Marlene Blanton PAP ACOG PANEL 2: 30 to 65on 05-15-2022 . . Normal [facility] Comment on above: Result Comment: Perf ormed at: WB Performed By: #### [id number] #### [facility] [address] [place] [address] Dr. Marlene Blanton Age Gdln ACOG Testing 30-65 Normal [facility] Comment on above: Performed By: #### [id number] #### [facility] [address] [place] [address] Dr. Marlene Blanton DIAGNOSIS: Comment Normal [facility] Comment on above: Result Comment: NEGA TIVE FOR INTRAEPITHELIAL LESION OR MALIGNANCY. FUNGAL ORGANISMS MORPHOLOGICALLY CONSISTENT WITH BAILEY SPECIES ARE PRESENT. Performed at: WB Performed By: #### [id number] #### [facility] [address] [place] [address] Dr. Marlene Blanton HPV Aptima Negative Normal Negative [facility] Comment on above: Result Comment: This nucleic acid amplification test detects fourteen high-risk HPV types (16,18,31,33,35,39,45,51,52,56,58,59,66,68) without differentiation. Performed at: =G Performed By: #### [id number] #### [facility] [address] [place] [address] Dr. Marlene Blanton HPV Genotype Reflex Comment Normal [facility] Comment on above: Result Comment: Crit eria not met, HPV Genotype not performed. Performed at: WB Performed By: #### [id number] #### [facility] [address] [place] [address] Dr. Marlene Blanton Methodology: Comment Normal [facility] Comment on above: Result Comment: This liquid based ThinPrep(R) pap test was screened with the use of an image guided system. Performed at: WB Performed By: #### [id number] #### [facility] [address] [place] [address] Dr. Marlene Blanton Note: Comment Normal [facility] Comment on above: Result Comment: The Pap smear is a screening test designed to aid in the detection of premalignant and malignant conditions of the uterine cervix. It is not a diagnostic procedure and should not be used as the sole means of detecting cervical cancer. Both false-positive and false-negative reports do occur. . Performed at: WB Performed By: #### [id number] #### [facility] [address] [place] [address] Dr. Marlene Blanton Performed by: Comment Normal [facility] Comment on above: Result Comment: Marycruz Gillespie, Repatcher (ASCP) Performed at: WB Performed By: #### [id number] #### [facility] [address] [address] [address] Marlene Blanton Specimen adequacy: Comment Normal [facility] Comment on above: Result Comment: Sati sfactory for evaluation. No endocervical component is identified. Performed at: WB Performed By: #### [id number] #### [facility] [address] [address] [address] Marlene Blanton MG MAMM SCREEN 3D JENNIFER CADon 05-14-2022 MG MAMM SCREEN 3D JENNIFER CAD Patient: ELIZA COELLO Exam Date: 05/14/2022 : 1970 Gender:F Ordering : DR JAVID WATSON . Admission #: [id number] Family : DR JOSH HONG . Order #: [id number] CLICK HERE TO VIEW EXAM RADIOLOGY REPORT [...] melanoma cancer at age 19. LOCATION: [facility] BREAST COMPOSITION: Heterogeneously dense,which may obscure [...] M.D. on 05/14/2022 at 14:48 Normal [facility] US PELVIS AND TRANSVAGon US PELVIS [...] ROSSANA VELÁSQUEZ Date: 2022-05-09 13:04 Normal [facility] CBC AUTO DIFFon 05-08-2022 BASO # 0.1 103/ul Normal 0.0-0.1 [facility] Comment on above: Performed By: #### T SH #### [facility] [address] [place] [address] Dr. Marlnee Blanton Basophils/100 WBC (Bld) 0.7 % Normal 0.2-2.0 [facility] Comment on above: Performed By: #### T SH #### [facility] [address] [place] [address] Dr. Marlene Blanton EO # 0.0 103/ul Normal 0.0-0.7 [facility] Comment on above: Performed By: #### T SH #### [facility] [address] [place] [address] Dr. Marlene Blanton Eosinophils/100 WBC (Bld) 0.0 % Critically low 0.9-7.0 [facility] Comment on above: Performed By: #### T SH #### [facility] [address] [place] [address] Dr. Marlene Blanton Erythrocyte distribution width (RBC) [Ratio] 13.4 % Normal 11.0-15.0 [facility] Comment on above: Performed By: #### T SH #### [facility] [address] [place] [address] Dr. Marlene Blanton Hematocrit (Bld) [Volume fraction] 42.1 % Normal 36.0-48.0 [facility] Comment on above: Performed By: #### T SH #### [facility] [address] [place] [address] Dr. Marlene Blanton Hemoglobin (Bld) [Mass/Vol] 13.8 g/dL Normal 12.0-16.0 [facility] Comment on above: Performed By: #### T SH #### [facility] [address] [place] [address] Dr. Marlene Blanton IG # 0.04 10e3/ul Critically high 0.00-0.03 [facility] Comment on above: Performed By: #### T SH #### [facility] [address] [place] [address] Dr. Marlene Blanton IG % 0.4 % Normal 0.0-0.5 [facility] Comment on above: Performed By: #### T SH #### [facility] [address] [place] [address] Dr. Marlene Blanton LYMPH # 2.1 103/ul Normal 1.2-3.8 [facility] Comment on above: Performed By: #### T SH #### [facility] [address] [place] [address] Dr. Marlene Blanton Lymphocytes/100 WBC (Bld) 23.3 % Normal 20.5-60.0 [facility] Comment on above: Performed By: #### T SH #### [facility] [address] [place] [address] Dr. Marlene Blanton MANUAL DIFF REQ NO Normal [facility] Comment on above: Performed By: #### T SH #### [facility] [address] [place] [address] Dr. Marlene Blanton MCH (RBC) [Entitic mass] 29.3 pg Normal 26.7-34.0 [facility] Comment on above: Performed By: #### T SH #### [facility] [address] [place] [address] Dr. Marlene Blanton MCHC (RBC) [Mass/Vol] 32.8 g/dL Normal 29.9-35.2 [facility] Comment on above: Performed By: #### T SH #### [facility] [address] [place] [address] Dr. Marlene Blanton MCV (RBC) [Entitic vol] 89.4 fL Normal 81.0-99.0 [facility] Comment on above: Performed By: #### T SH #### [facility] [address] [place] [address] Dr. Marlene Blanton MONO # 0.7 103/ul Normal 0.3-0.8 [facility] Comment on above: Performed By: #### T SH #### [facility] [address] [place] [address] Dr. Marlene Blanton Monocytes/100 WBC (Bld) 7.3 % Normal 1.7-12.0 [facility] Comment on above: Performed By: #### T SH #### [facility] [address] [place] [address] Dr. Marlene Blanton NEUT # 6.1 103/ul Normal 1.4-6.5 [facility] Comment on above: Performed By: #### T SH #### [facility] [address] [place] [address] Dr. Marlene Blanton Neutrophils/100 WBC (Bld) 68.3 % Normal 43.0-75.0 [facility] Comment on above: Performed By: #### T SH #### [facility] [address] [place] [address] Dr. Marlene Blanton Platelet mean volume (Bld) [Entitic vol] 8.8 fL Critically low 9.5-13.5 [facility] Comment on above: Performed By: #### T SH #### [facility] [address] [place] [address] Dr. Marlene Blanton PLT 310 103/ul Normal 150-450 [facility] Comment on above: Performed By: #### T SH #### [facility] [address] [place] [address] Dr. Marlene Blanton RBC 4.71 106/ul Normal 4.20-5.40 [facility] Comment on above: Performed By: #### T SH #### [facility] [address] [place] [address] Dr. Marlene Blanton WBC 9.0 103/ul Normal 4.0-11.0 [facility] Comment on above: Performed By: #### T SH #### [facility] [address] [place] [address] Dr. Marlene Blanton FREE T4on 05-08-2022 Free T4 [Mass/Vol] 1.09 ng/dL Normal 0.76-1.46 [facility] Comment on above: Performed By: #### T SH #### [facility] [address] [place] [address] Dr. Marlene Blanton PREG QUANT HCGon 05-08-2022 HCG QUANT 1 mIU/mL Normal [facility] Comment on above: Performed By: #### T SH, PREGQNT #### [facility] [address] [place] [address] Dr. Marlene Blanton HCG RANGE SEE BELOW Normal [facility] Comment on above: Result Comment: 5-50 0.2-1 WEEK 50-500 1-2 WEEKS 100-5,000 2-3 WEEKS 500-10,000 3-4 WEEKS 1,000-50,000 4-5 WEEKS 10,000-100,000 5-6 WEEKS 15,000-200,000 6-8 WEEKS 10,000-100,000 2-3 MONTHS Performed By: #### T SH, PREGQNT #### [facility] [address] [place] [address] Dr. Marlene Blanton PROTIMEon 05-08-2022 INR Coag (PPP) [Relative time] 0.95 {INR} Normal [facility] Comment on above: Performed By: #### C BC #### [facility] [address] [place] [address] Dr. Marlene Blanton INR GUIDELINES SEE BELOW Normal [facility] Comment on above: Result Comment: GLEN RED INR: 2.0 - 3.0 CONDITIONS NOT LISTED BELOW 2.5 - 3.5 FOR PROSTHETIC HEART VALVE REPLACEMENT 2.5 - 3.5 RECURRENT THROMBOSIS Performed By: #### C BC #### [facility] [address] [place] [address] Dr. Marlene Blanton PT Coag (PPP) [Time] 10.3 s Normal 9.0-11.6 [facility] Comment on above: Performed By: #### C BC #### [facility] [address] [address] [address] Marlene Blanton PTTon 05-08-2022 aPTT Coag (Bld) [Time] 26.3 s Normal 22.3-36.2 [facility] Comment on above: Performed By: #### C BC #### [facility] [address] [address] [address] Marlene Blanton TSHon 05-08-2022 TSH 4.001 uIU/mL Critically high 0.358-3.740 [facility] Comment on above: Performed By: #### T SH, PREGQNT #### [facility] [address] [place] [address] Dr. Marlene Blanton Reminderson 06-01-2020 Reminders - From: Jesenia Price LPN To: GSN - Clinical; Sent: 06/01/2020 08:20:44 EST Show up: 04/24/2030 09:00:00 EDT Subject: colonoscopy recall Due Date/Time: 05/24/2030 09:00:00 EST Reminder/Recall Patient is due for screening colonoscopy 05/24/2030. Normal [facility] Ambulatory Clinical Summaryo n 05-31-2020 Ambulatory Clinical Summary {[id number]}CD:[id number] Normal [facility] General Surgery Office/Clini c Noteon [...] LAUREN, Corby Salguero Only if needed [address] [place] [address]- Additional Instructions: Problem List/Past Medical [...] Primary malignant neoplasm of female breast: Mother. [facility] Comment on above: Result Comment: Elec tronically Signed By: GABRIEL LAUREN, Corby Salguero\.layla\Date and Time Signed: 05/31/20 16:31 EST Pathology Noteon 05-29-2020 Pathology Note [id number] D:127 [facility] Outside Colonoscopyon 2019 Outside Colonoscopy [id number] D:127 [facility] Lab Reportson 05-25-2020 Lab Reports [id number] D:127 [facility] Provider Letter FTon 05-12 Provider Letter [facility] Josh Hong, [facility] [place] [address] Re: ELIZA COELLO Date of : 1970 Thank you for your referral of Eliza Coello who was seen on consultation on May 09, 2020, for rectal bleeding, abdominal pain with bowel movements. A colonoscopy is ordered for further evaluation. I will be happy to follow Eliza. Sincerely, Corby Buitrago MD General Surgery [facility] Ambulatory Clinical Summaryo n 05-09-2020 Ambulatory Clinical Summary {[id number]}CD:[id number] [facility] General Surgery Office/Clini c Noteon 05-09-2020 [...] available Patient Education Exercise to Stay Healthy, Dpoa-ch-Yomt Problem List/Past Medical History Ongoing Abdominal pain, [...] Primary malignant neoplasm of female breast: Mother. [facility] Comment on above: Result Comment: Elec [...] Document Reviewed: 07/12/2011 ExitCare? Patient Information ?2013 [facility]. [facility] Physician Referralon 020 Physician Referral [id number] D:[address] [facility] Social History Date Type Detail Facility Start: 10-21-2023 Tobacco smoking stat us NHIS Never smoked tobacco (finding) [facility] Start: 1970 Sex Assigned At Female F [facility] Vital Signs Date Time Vital Sign Value Performing Clinician Faci lity 10-21-2023 14:00-0400 Diastolic blood pressure 72 mm[Hg] MD Josh Hong Work Phone: [facility] 10-21-2023 14:00-0400 Heart rate 77 /min MD Josh Hong Work Phone: [facility] 10-21-2023 14:00-0400 Respiratory rate 16 /min MD Josh Hong Work Phone: [facility] 10-21-2023 14:00-0400 SaO2% (BldA) [Mass fraction] 97 % MD Josh Hong Work Phone: [facility] 10-21-2023 14:00-0400 Systolic blood pressure 121 mm[Hg] MD Josh Hong Work Phone: [facility] 10-21-2023 10:52-0400 Body height 170.18 cm MD Josh Hong Work Phone: [facility] 10-21-2023 10:52-0400 Body weight 79.37 kg MD Josh Hong Work Phone: [facility] 10-03-2023 09:50-0400 Body height 170.18 cm MD Josh Hong Work Phone: [facility] 10-03-2023 09:50-0400 Body mass index (BMI) [Ratio] 28 kg/m2 MD Josh Hong Work Phone: [facility] 10-03-2023 09:50-0400 Body weight 81.19 kg MD Josh Hong Work Phone: [facility] 10-03-2023 09:50-0400 Diastolic blood pressure 79 mm[Hg] MD Josh Hong Work Phone: [facility] 10-03-2023 09:50-0400 Heart rate 74 /min MD Josh Hong Work Phone: [facility] 10-03-2023 09:50-0400 Systolic blood pressure 128 mm[Hg] MD Josh Hong Work Phone: [facility] Procedure note 10-21-2023 Note Date & Type Note Facility 10-21-2023 Procedure note [facility] Procedure note 10-21-2023 Note Date & Type Note Facility 10-21-2023 Procedure note [facility] Clinical Note 06-20-2022 Note Date & Type Note Facility 06-20-2022 Note OPERATIVE NOTE OPERATION DATE: 06/20/2022 PROCEDURE: vNOTES hysterectomy with cystoscopy and bilateral salpingectomy. PREOPERATIVE DIAGNOSIS: Pelvic pressure, menorrhagia, dysmenorrhea, dyspareunia. POSTOPERATIVE DIAGNOSIS: Pelvic pressure, menorrhagia, dysmenorrhea, dyspareunia. ANESTHESIA: General. SURGEON: Javid Watson M.D. COMMUNICATIONS PROGRAMMER: PIYUSH Howell URINE OUTPUT: Yellow and clear. [...] Sponge, lap, needle counts correct x2. [facility] Evaluation note Note Date & Type Note Facility Evaluation note Diagnosis Onset Date Abdominal pain acute Bloating acute GERD (gastroesophageal reflux disease) acute Mucus in stool acute [facility] Work Phone: History and physical note Note Date & Type Note Facility History and physical note Note Date/Time October 21, 2023 12:42pm [facility] [address] [place] [address] Gastroenterology H&P Signed Patient: Eliza Coello MR#: [id number] : 1970 Acct:[id number] Age/Sex: 52 / F Adm Date: 4 Loc: Room: Type: [facility] Attending Dr: Elizabeth Block DO Copies to: Elizabeth Block, DO Josh Hong MD~ Date of Service: 10/21/2023 HISTORY & [...] an appropriate candidate for the procedure. Elizabeth Block DO Documented By: Elizabeth Block DO 10/21/23 1241 Signed By: <Electronically signed by Elizabeth Block DO> 10/21/23 1242 [facility] Work Phone: Summary Purpose Family History No Family History Records Found Relationship Condition Age at Onset Recorded Date/T kalin Not Specified Deep vein thrombosis (DVT) Unknown Malignant neoplasm Unknown sister Hyperthyroidism Unknown Supraventricular tachycardia Unknown father Vitiligo Unknown Advance Directives No Advanced Directives Records Found Advance Directive Response Recorded Date/ Time Advance Directives No September 14, 2 024 3:21pm Chief Complaint and Reason for Visit Chief Complaint acid reflux, bloatin g, ab pain, mucus in stool and pain, mucus in stool, gerd, bloating and pain, mucus in stool, gerd, bloating Reason for Visit Abdominal pain Bloating GERD (gastroesophageal reflux disease) Mucus in stool Additional Source Comments INFORMATION SOURCE (unrecogn ized section and content) DATE CREATED AUTHOR 06/15/2020 [facility] DATE CREATED AUTHOR AUTHOR'S ORGANIZ ATION 11/03/2022 [facility] DATE CREATED AUTHOR AUTHOR'S ORGANIZ ATION 10/31/2023 [facility] DATE CREATED AUTHOR AUTHOR'S ORGANIZ ATION 11/08/2023 [facility] EPIC Care Teams (unrecognized sec tion and content) Team Status: Active Member Role Status Dates Josh Hong MD Primary Care Provider Active Team Status: Inactive Member Role Status Dates Elizabeth Block DO Attending Provider Active St art: October 03, 2023 End: October 03, 2023 Josh Hong MD Primary Care Provider Active Start: October 03, 2023 End: October 03, 2023 Team Status: Inactive Member Role Status Dates Josh Hong MD Primary Care Provider Active Start: October 21, 2023 End: October 21, 2023 Elizabeth Block DO Attending Provider Active St art: October 21, 2023 End: October 21, 2023 Team Status: Active Member Role Status Dates Josh Hong MD Primary Care Provider Active Start: October 21, 2023 Elizabeth Block DO Attending Provider, Other Provider Active Start: [...] BE BASED ON THE PRIMARY CLINICAL RECORDS. [facility]. provides no warranty or guarantee of the accuracy or completeness of information in this document.
[2023-12-16 11:00] LABS: Basophils Absolute Auto 0.1 10^3/uL (0.0-0.1); Basophils Percent Auto 0.6 % (0.2-2.0); Hematocrit 39.2 % (36.0-48.0); Hemoglobin 12.7 g/dL (12.0-16.0); Immature Granulocytes Abs Auto 0.03 10^3/uL (0.00-0.03); Immature Granulocytes Pct Auto 0.3 % (0.0-0.5); Lymphocytes Absolute Auto 2.4 10^3/uL (1.2-3.8); Lymphocytes Percent Auto 23.3 % (20.5-60.0); Mean Corpuscular HGB Conc 32.4 g/dL (29.9-35.2); Mean Corpuscular Hemoglobin 29.4 pg (26.7-34.0); Mean Corpuscular Volume 90.7 fL (81.0-99.0); Mean Platelet Volume 8.8 fL (9.5-13.5); Monocytes Absolute Auto 0.7 10^3/uL (0.3-0.8); Monocytes Percent Auto 7.3 % (1.7-12.0); Neutrophils Absolute Auto 6.9 10^3/uL (1.4-6.5); Neutrophils Percent Auto 68.5 % (43.0-75.0); Platelet Count 262 10^3/uL (150-450); Red Blood Count 4.32 10^6/uL (4.20-5.40); Red Cell Distribution Width 13.6 % (11.0-15.0); White Blood Count 10.1 10^3/uL (4.0-11.0)
== END 2023-12-16 10:07 | disposition home or self-care (01) ==
LOC: PST 10:07
PROVIDERS: PCP Family Medicine; Visit Provider Obstetrics & Gynecology
DX: Z01.812 Encounter for preprocedural laboratory examination (principal); Z01.810 Encounter for preprocedural cardiovascular examination; N83.299 Other ovarian cyst, unspecified side; R10.2 Pelvic and perineal pain
CPT/HCPCS: 85025; 93005

== ENCOUNTER 2023-12-26 08:35 | Day surgery (SDC) | payer OTHER, SELFPAY ==
--- NOTE | 2023-12-16 10:12 | ECG_ITS ---
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
[2023-12-16 10:50] VITALS: BP 118/80; PULSE 70; TEMP 36.3; O2SAT 98; BMI 27.1
[2023-12-26] VITALS (14 sets, daily range): BP systolic 106–127; BP diastolic 72–85; PULSE 71–89; TEMP 36.1–36.2; O2SAT 92–97; BMI 27.1
--- OUTSIDE RECORDS SUMMARY | 2023-12-26 08:44 | XMS_ITS | CCD ---
Author Organization [facility] Care Team Providers Care Group Fitness Assistant Department Head Name Role Phone DARCIE ., DR HUA Consulting Unavailable HOY ., DR MORENO Primary Care Unavailable DARCIE ., DR HUA Attending Unavailable DARCIE ., DR HUA Admitting Unavailable VERONIQUE, JOSE Consulting Unavailable VELVET ESQUIVEL Consulting Unavailable GEMBUS, DICK Consulting Unavailable DARCIE [...] JOAN Admitting Unavailable DYLAN, JOAN Consulting Unavailable DIANE ., DR MORENO Primary Care Unavailable DYLAN, JOAN Attending Unavailable DYLAN, JOAN Admitting Unavailable DARCIE ., DR HUA Consulting Unavailable HOY ., DR MORENO Primary Care Unavailable DARCIE ., DR HUA Attending Unavailable DARCIE ., DR HUA Admitting Unavailable [place]ILL [place], DR ROSSANA Teague Consulting Unavailable HOY ., [...] Unavailable HOY ., DR MORENO Consulting Unavailable ANTHONYY ., DR MORENO Primary Care Unavailable HOY ., DR MORENO Attending Unavailable HOY ., DR MORENO Admitting Unavailable [place], DR ROSSANA Teague Consulting Unavailable MD Josh Hong Primary Care Provider [phone] DO Elizabeth Perea Attending Provider Elizabeth Perea Attending Unavailable Elizabeth Perea Admitting Unavailable Josh Hong Primary Care Unavailable REID JORGE Attending Unavailable JAVID WATSON Attending Unavailable Allergies Allergy Classification Reported Allergen(s) Allergy Type Date of Onset Reaction(s) Facility (2 sources) Fluconazole Drug Allergy 06-23-2021 [facility] Repository (1 source) levoFLOXacin Drug Allergy [facility] Repository (1 source) levoFLOXacin Drug Allergy 10-21-2023 [facility] Repository Medications Current Medications Medication Drug Class(es) [...] 2 tablets by mouth once daily Vitamin Z96-Xjgpt Acid Active 2 TAB PO Daily October [...] 07-03-2022 Episodic Other aftercare (1 source) Other [facility] (current) drug therapy; Translations: [OTH USP CURRENT DRUG THERAPY] Onset: 07-03-2022 Episodic Other aftercare (1 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) 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; 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 DX] Onset: 07-03-2022 Episodic [...] Test Name Value Interpretation Reference Range Facility [facility] 10-21-2023 L Specimen: [id number] Received: 10/21/23 Status: ANUSHA Collier Num: [id number] Spec Type: Surgical Subm Dr: Elizabeth Perea DO Tissues: A Small Intestine - Biopsy/Polyp (SMALL BOWEL) B GASTRIC FOR HP (GASTRIC HP) C Gastric Biopsy (GASTRIC POLYP) Procedures: HE/6, Gross/Micro L4/3, H PYLORI, IHC First AB Age/ Patient Sex Location Account Attending Physician Eliza Coello 52/F [id number] Elizabeth Perea DO SPEC NUM: [id number] RECD: 10/21/23 STATUS: ANUSHA COLLIER NUM: [id number] CECILE: 10/21/23- SUBM DR: Elizabeth Perea DO ENTERED: 10/21/[address] [facility] [address]: SPEC TYPE: Surgical DEPT: S [...] tissue fragment, entirely submitted in B1. Specimen: [id number] Received: 10/21/23 Status: ANUSHA Collier Num: [id number] Spec Type: Surgical Subm Dr: Elizabeth Perea DO Tissues: A Small Intestine - Biopsy/Polyp (SMALL BOWEL) B GASTRIC FOR HP (GASTRIC HP) C Gastric Biopsy (GASTRIC POLYP) Procedures: HE/6, Gross/Micro L4/3, H PYLORI, IHC First AB Patient: OumouEliza [id number] (Continued) Specimen: [id number] Received: 10/21/23 (Continued) Gross Description (Continued) Signed (signature on file) Rossana Solares MD 10/22/23 1633 Specimen: [id number] Received: 10/21/23 Status: ANUSHA Collier Num: [id number] Spec Type: Surgical Subm Dr: Elizabeth Perea, DO Tissues: A Small Intestine - Biopsy/Polyp (SMALL BOWEL) B GASTRIC FOR HP (GASTRIC HP) C Gastric Biopsy (GASTRIC POLYP) Procedures: HE/6, Gross/Micro L4/3, H PYLORI, IHC First AB Patient: OumouEliza [id number] (Continued) Specimen: [id number] Received: 10/21/23 (Continued) Gross Description (Continued) C. Further labeled gastric polyp is a 0.4 x 0.2 x 0.1 cm menjivar mucosal tissue fragment, entirely submitted in C1. Clinical history: Rule out celiac, rule out H. pylori. CPT Codes 04271n6, 53831 Specimen: [id number] Received: 10/21/23 Status: ANUSHA Collier Num: [id number] Spec Type: Surgical Subm Dr: Elizabeth Perea DO Tissues: A Small Intestine - Biopsy/Polyp (SMALL BOWEL) B GASTRIC FOR HP (GASTRIC HP) C Gastric Biopsy (GASTRIC POLYP) Procedures: HE/6, Gross/Micro L4/3, H PYLORI, IHC First AB Patient: Eliza Coello [id number] (Continued) Signed (signature on file) Rossana Solares MD 10/22/23 1633 [facility] VC VENOUS REFLUX RT [facility] VC VENOUS REFLUX RT T Patient: ELIZA COELLO. Exam Date: 10/30/2022 : 1970 Gender:F Ordering : DR JOSH HONG . Admission #: [id number] Family : Order #: [id number] CLICK HERE TO VIEW EXAM RADIOLOGY REPORT [...] Compressibility: Normal. Flow: Moderate deep venous reflux. Layer Out Plate Glass: None. Tech Note: Incompetent varicose vein lateral [...] MD on 10/30/2022 at 12:59 Normal [facility] CBC AUTO DIFFon 07-04-2022 BASO # 0.1 103/ul Normal 0.0-0.1 [facility] Comment on above: Performed By: #### T SH #### [facility] [address] [place] [address] Dr. Marlene Blanton Basophils/100 WBC (Bld) 0.6 % Normal 0.2-2.0 [facility] Comment on above: Performed By: #### T SH #### [facility] [address] [place] [address] Dr. Marlene Blanton EO # 0.0 103/ul Normal 0.0-0.7 [facility] Comment on above: Performed By: #### T SH #### [facility] [address] [place] [address] Dr. Marlene Blanton Eosinophils/100 WBC (Bld) 0.0 % Critically low 0.9-7.0 [facility] Comment on above: Performed By: #### T SH #### [facility] [address] [place] [address] Dr. Marlene Blanton Erythrocyte distribution width (RBC) [Ratio] 13.3 % Normal 11.0-15.0 [facility] Comment on above: Performed By: #### T SH #### [facility] [address] [place] [address] Dr. Marlene Blanton Hematocrit (Bld) [Volume fraction] 42.3 % Normal 36.0-48.0 [facility] Comment on above: Performed By: #### T SH #### [facility] [address] [place] [address] Dr. Marlene Blanton Hemoglobin (Bld) [Mass/Vol] 13.0 g/dL Normal 12.0-16.0 [facility] Comment on above: Performed By: #### T SH #### [facility] [address] [place] [address] Dr. Marlene Blanton IG # 0.04 10e3/ul Critically high 0.00-0.03 [facility] Comment on above: Performed By: #### T SH #### [facility] [address] [place] [address] Dr. Marlene Blanton IG % 0.4 % Normal 0.0-0.5 [facility] Comment on above: Performed By: #### T SH #### [facility] [address] [place] [address] Dr. Marlene Blanton LYMPH # 2.0 103/ul Normal 1.2-3.8 [facility] Comment on above: Performed By: #### T SH #### [facility] [address] [place] [address] Dr. Marlene Blanton Lymphocytes/100 WBC (Bld) 19.0 % Critically low 20.5-60.0 [facility] Comment on above: Performed By: #### T SH #### [facility] [address] [place] [address] Dr. Marlene Blanton MANUAL DIFF REQ NO Normal [facility] Comment on above: Performed By: #### T SH #### [facility] [address] [place] [address] Dr. Marlene Blanton MCH (RBC) [Entitic mass] 29.6 pg Normal 26.7-34.0 [facility] Comment on above: Performed By: #### T SH #### [facility] [address] [place] [address] Dr. Marlene Blanton MCHC (RBC) [Mass/Vol] 30.7 g/dL Normal 29.9-35.2 [facility] Comment on above: Performed By: #### T SH #### [facility] [address] [place] [address] Dr. Marlene Blanton MCV (RBC) [Entitic vol] 96.4 fL Normal 81.0-99.0 [facility] Comment on above: Performed By: #### T SH #### [facility] [address] [place] [address] Dr. Marlene Blanton MONO # 0.7 103/ul Normal 0.3-0.8 [facility] Comment on above: Performed By: #### T SH #### [facility] [address] [place] [address] Dr. Marlene Blanton Monocytes/100 WBC (Bld) 6.6 % Normal 1.7-12.0 [facility] Comment on above: Performed By: #### T SH #### [facility] [address] [place] [address] Dr. Marlene Blanton NEUT # 7.7 103/ul Critically high 1.4-6.5 [facility] Comment on above: Performed By: #### T SH #### [facility] [address] [place] [address] Dr. Marlene Blanton Neutrophils/100 WBC (Bld) 73.4 % Normal 43.0-75.0 [facility] Comment on above: Performed By: #### T SH #### [facility] [address] [place] [address] Dr. Marlene Blanton Platelet mean volume (Bld) [Entitic vol] 8.9 fL Critically low 9.5-13.5 [facility] Comment on above: Performed By: #### T SH #### [facility] [address] [place] [address] Dr. Marlene Blanton PLT 288 103/ul Normal 150-450 [facility] Comment on above: Performed By: #### T SH #### [facility] [address] [place] [address] Dr. Marlene Blanton RBC 4.39 106/ul Normal 4.20-5.40 [facility] Comment on above: Performed By: #### T SH #### [facility] [address] [place] [address] Dr. Marlene Blanton WBC 10.5 103/ul Normal 4.0-11.0 [facility] Comment on above: Performed By: #### T SH #### [facility] [address] [place] [address] Dr. Marlene Blanton FREE T4on 07-04-2022 Free T4 [Mass/Vol] 0.98 ng/dL Normal 0.76-1.46 [facility] Comment on above: Performed By: #### F T4 #### [facility] [address] [place] [address] Dr. Marlene Blanton PROTIMEon 07-04-2022 INR Coag (PPP) [Relative time] 0.95 {INR} Normal [facility] Comment on above: Performed By: #### P T, PTT #### [facility] [address] [place] [address] Dr. Marlene Blanton INR GUIDELINES SEE BELOW Normal The [facility] Comment on above: Result Comment: GLEN RED INR: 2.0 - 3.0 CONDITIONS NOT LISTED BELOW 2.5 - 3.5 FOR PROSTHETIC HEART VALVE REPLACEMENT 2.5 - 3.5 RECURRENT THROMBOSIS Performed By: #### P T, PTT #### [facility] [address] [place] [address] Dr. Marlene Blanton PT Coag (PPP) [Time] 10.1 s Normal 9.0-11.6 [facility] Comment on above: Performed By: #### P T, PTT #### [facility] [address] [place] [address] Dr. Marlene Blanton PTTon 07-04-2022 aPTT Coag (Bld) [Time] 27.2 s Normal 22.3-36.2 [facility] Comment on above: Performed By: #### P T, PTT #### [facility] [address] [place] [address] Dr. Marlene Blanton TSHon 07-04-2022 TSH 1.916 uIU/mL Normal 0.358-3.740 [facility] Comment on above: Performed By: #### T SH #### [facility] [address] [place] [address] Dr. Marlene Blanton BUNon 06-21-2022 Urea nitrogen [Mass/Vol] 8.0 mg/dL Normal 7.0-18.0 [facility] Comment on above: Performed By: #### C BC #### [facility] [address] [place] [address] Dr. Marlene Blanton CBC AUTO DIFFon 06-21-2022 BASO # 0.0 103/ul Normal 0.0-0.1 [facility] Comment on above: Performed By: #### T SH #### [facility] [address] [place] [address] Dr. Marlene Blanton Basophils/100 WBC (Bld) 0.2 % Normal 0.2-2.0 [facility] Comment on above: Performed By: #### T SH #### [facility] [address] [place] [address] Dr. Marlene Blanton EO # 0.0 103/ul Normal 0.0-0.7 [facility] Comment on above: Performed By: #### T SH #### [facility] [address] [place] [address] Dr. Marlene Blanton Eosinophils/100 WBC (Bld) 0.1 % Critically low 0.9-7.0 [facility] Comment on above: Performed By: #### T SH #### [facility] [address] [place] [address] Dr. Marlene Blanton Erythrocyte distribution width (RBC) [Ratio] 13.4 % Normal 11.0-15.0 [facility] Comment on above: Performed By: #### T SH #### [facility] [address] [place] [address] Dr. Marlene Blanton Hematocrit (Bld) [Volume fraction] 33.6 % Critically low 36.0-48.0 [facility] Comment on above: Performed By: #### T SH #### [facility] [address] [place] [address] Dr. Marlene Blanton Hemoglobin (Bld) [Mass/Vol] 10.8 g/dL Critically low 12.0-16.0 [facility] Comment on above: Result Comment: post surgery Performed By: #### T SH #### [facility] [address] [place] [address] Dr. Marlene Blanton IG # 0.06 10e3/ul Critically high 0.00-0.03 [facility] Comment on above: Performed By: #### T SH #### [facility] [address] [place] [address] Dr. Marlene Blanton IG % 0.5 % Normal 0.0-0.5 [facility] Comment on above: Performed By: #### T SH #### [facility] [address] [place] [address] Dr. Marlene Blanton LYMPH # 2.0 103/ul Normal 1.2-3.8 [facility] Comment on above: Performed By: #### T SH #### [facility] [address] [place] [address] Dr. Marlene Blanton Lymphocytes/100 WBC (Bld) 16.1 % Critically low 20.5-60.0 [facility] Comment on above: Performed By: #### T SH #### [facility] [address] [place] [address] Dr. Marlene Blanton MANUAL DIFF REQ NO Normal [facility] Comment on above: Performed By: #### T SH #### [facility] [address] [place] [address] Dr. Marlene Blanton MCH (RBC) [Entitic mass] 29.0 pg Normal 26.7-34.0 [facility] Comment on above: Performed By: #### T SH #### [facility] [address] [place] [address] Dr. Marlene Blanton MCHC (RBC) [Mass/Vol] 32.1 g/dL Normal 29.9-35.2 [facility] Comment on above: Performed By: #### T SH #### [facility] [address] [place] [address] Dr. Marlene Blanton MCV (RBC) [Entitic vol] 90.1 fL Normal 81.0-99.0 [facility] Comment on above: Performed By: #### T SH #### [facility] [address] [place] [address] Dr. Marlene Blanton MONO # 0.7 103/ul Normal 0.3-0.8 [facility] Comment on above: Performed By: #### T SH #### [facility] [address] [place] [address] Dr. Marlene Blanton Monocytes/100 WBC (Bld) 5.3 % Normal 1.7-12.0 [facility] Comment on above: Performed By: #### T SH #### [facility] [address] [place] [address] Dr. Marlene Blanton NEUT # 9.7 103/ul Critically high 1.4-6.5 [facility] Comment on above: Performed By: #### T SH #### [facility] [address] [place] [address] Dr. Marlene Blanton Neutrophils/100 WBC (Bld) 77.8 % Critically high 43.0-75.0 [facility] Comment on above: Performed By: #### T SH #### [facility] [address] [place] [address] Dr. Marlene Blanton Platelet mean volume (Bld) [Entitic vol] 8.5 fL Critically low 9.5-13.5 [facility] Comment on above: Performed By: #### T SH #### [facility] [address] [place] [address] Dr. Marlene Blanton PLT 248 103/ul Normal 150-450 [facility] Comment on above: Performed By: #### T SH #### [facility] [address] [place] [address] Dr. Marlene Blanton RBC 3.73 106/ul Critically low 4.20-5.40 [facility] Comment on above: Performed By: #### T SH #### [facility] [address] [place] [address] Dr. Marlene Blanton WBC 12.4 103/ul Critically high 4.0-11.0 [facility] Comment on above: Performed By: #### T SH #### [facility] [address] [place] [address] Dr. Marlene Blanton CREATININEon 06-21-2022 Creatinine [Mass/Vol] 0.87 mg/dL Normal 0.55-1.02 [facility] Comment on above: Performed By: #### C BC #### [facility] [address] [place] [address] Dr. Marlene Blanton EGFR-AF ARMENIAN >60 Normal >=60 [facility] Comment on above: Performed By: #### C BC #### [facility] [address] [place] [address] Dr. Marlene Blanton EGFR-NON AF ARMENIAN >60 Normal >=60 [facility] Comment on above: Performed By: #### C BC #### [facility] [address] [place] [address] Dr. Marlene Blanton CBC AUTO DIFFon 06-19-2022 BASO # 0.1 103/ul Normal 0.0-0.1 [facility] Comment on above: Performed By: #### C BC #### [facility] [address] [place] [address] Dr. Marlene Blanton Basophils/100 WBC (Bld) 0.5 % Normal 0.2-2.0 [facility] Comment on above: Performed By: #### C BC #### [facility] [address] [place] [address] Dr. Marlene Blanton EO # 0.0 103/ul Normal 0.0-0.7 [facility] Comment on above: Performed By: #### C BC #### [facility] [address] [place] [address] Dr. Marlene Blanton Eosinophils/100 WBC (Bld) 0.1 % Critically low 0.9-7.0 [facility] Comment on above: Performed By: #### C BC #### [facility] [address] [place] [address] Dr. Marlene Blanton Erythrocyte distribution width (RBC) [Ratio] 13.4 % Normal 11.0-15.0 [facility] Comment on above: Performed By: #### C BC #### [facility] [address] [place] [address] Dr. Marlene Blanton Hematocrit (Bld) [Volume fraction] 39.8 % Normal 36.0-48.0 [facility] Comment on above: Performed By: #### C BC #### [facility] [address] [place] [address] Dr. Marlene Blanton Hemoglobin (Bld) [Mass/Vol] 13.2 g/dL Normal 12.0-16.0 [facility] Comment on above: Performed By: #### C BC #### [facility] [address] [place] [address] Dr. Marlene Blanton IG # 0.05 10e3/ul Critically high 0.00-0.03 [facility] Comment on above: Performed By: #### C BC #### [facility] [address] [place] [address] Dr. Marlene Blanton IG % 0.5 % Normal 0.0-0.5 [facility] Comment on above: Performed By: #### C BC #### [facility] [address] [place] [address] Dr. Marlene Blanton LYMPH # 2.4 103/ul Normal 1.2-3.8 [facility] Comment on above: Performed By: #### C BC #### [facility] [address] [place] [address] Dr. Marlene Blanton Lymphocytes/100 WBC (Bld) 24.7 % Normal 20.5-60.0 [facility] Comment on above: Performed By: #### C BC #### [facility] [address] [place] [address] Dr. Marlene Blanton MANUAL DIFF REQ NO Normal [facility] Comment on above: Performed By: #### C BC #### [facility] [address] [place] [address] Dr. Marlene Blanton MCH (RBC) [Entitic mass] 29.7 pg Normal 26.7-34.0 [facility] Comment on above: Performed By: #### C BC #### [facility] [address] [place] [address] Dr. Marlene Blanton MCHC (RBC) [Mass/Vol] 33.2 g/dL Normal 29.9-35.2 [facility] Comment on above: Performed By: #### C BC #### [facility] [address] [place] [address] Dr. Marlene Blanton MCV (RBC) [Entitic vol] 89.4 fL Normal 81.0-99.0 [facility] Comment on above: Performed By: #### C BC #### [facility] [address] [place] [address] Dr. Marlene Blanton MONO # 0.8 103/ul Normal 0.3-0.8 [facility] Comment on above: Performed By: #### C BC #### [facility] [address] [place] [address] Dr. Marlene Blanton Monocytes/100 WBC (Bld) 7.9 % Normal 1.7-12.0 [facility] Comment on above: Performed By: #### C BC #### [facility] [address] [place] [address] Dr. Marlene Blanton NEUT # 6.3 103/ul Normal 1.4-6.5 [facility] Comment on above: Performed By: #### C BC #### [facility] [address] [address] [address] Marlene Blanton Neutrophils/100 WBC (Bld) 66.3 % Normal 43.0-75.0 [facility] Comment on above: Performed By: #### C BC #### [facility] [address] [place] [address] Dr. Marlene Blanton Platelet mean volume (Bld) [Entitic vol] 8.3 fL Critically low 9.5-13.5 [facility] Comment on above: Performed By: #### C BC #### [facility] [address] [address] [address] Marlene Blanton PLT 300 103/ul Normal 150-450 [facility] Comment on above: Performed By: #### C BC #### [facility] [address] [place] [address] Dr. Marlene Blanton RBC 4.45 106/ul Normal 4.20-5.40 [facility] Comment on above: Performed By: #### C BC #### [facility] [address] [place] [address] Dr. Marlene Blanton WBC 9.6 103/ul Normal 4.0-11.0 [facility] Comment on above: Performed By: #### C BC #### [facility] [address] [place] [address] Dr. Marlene Blanton PREG QUANT HCGon 06-19-2022 HCG QUANT 1 mIU/mL Normal [facility] Comment on above: Performed By: #### P REGQNT #### [facility] [address] [place] [address] Dr. Marlene Blanton HCG RANGE SEE BELOW Normal [facility] Comment on above: Result Comment: 5-50 0.2-1 WEEK 50-500 1-2 WEEKS 100-5,000 2-3 WEEKS 500-10,000 3-4 WEEKS 1,000-50,000 4-5 WEEKS 10,000-100,000 5-6 WEEKS 15,000-200,000 6-8 WEEKS 10,000-100,000 2-3 MONTHS Performed By: #### P REGQNT #### [facility] [address] [place], [place] [address] Dr. Marlene Blanton TYPE AND SCREENon 06-19-2022 TYPE AND SCREEN Negative Normal [facility] Comment on above: Performed By: #### C BC #### [facility] [address] [address] [address] Marlene Blanton ASYMPTOMATIC COVID-19 ANTIGE Non 05-28-2022 EUA Statement SEE BELOW Normal [facility] Comment on above: Result Comment: This [...] sooner. Performed By: #### C BC #### [facility] [address] [place] [address] Dr. Marlene Blanton SARS-CoV-2 (COVID-19) RNA [place]+probe Ql (Unsp spec) Positive Critically abnormal NEGATIVE [facility] Comment on above: Result Comment: SARS -CoV-2 antigen present; does not rule out coinfection with other pathogens. Performed By: #### C BC #### [facility] [address] [place] [address] Dr. Marlene Blanton [facility] SARS-CoV-2 (COVID-19) RNA [place]+probe Ql (Unsp spec) Detected Critically abnormal NOT DETECTED [facility] Comment on above: Result Comment: This test is not yet approved or cleared by the [place] FDA. When there are no FDA-approved or cleared tests available, and other criteria are met, FDA can make tests available under an emergency access mechanism called an Emergency Use Authorization (EUA). The EUA for this test is supported by the [place] of [employer] and Human Service's declaration that [...] used). Performed By: #### C VDTB #### [facility] [address] [place] [address] Dr. Marlene Blanton PAP ACOG PANEL 2: 30 to 65on 05-15-2022 . . Normal [facility] Comment on above: Result Comment: Perf ormed at: WB Performed By: #### [id number] #### [facility] [facility] [address] [place] [address] Dr. Marlene Blanton Age Gdln ACOG Testing 30-65 Normal [facility] Comment on above: Performed By: #### [id number] #### [facility] [address] [place] [address] Dr. Marlene Blanton DIAGNOSIS: Comment Normal [facility] Comment on above: Result Comment: NEGA TIVE FOR INTRAEPITHELIAL LESION OR MALIGNANCY. FUNGAL ORGANISMS MORPHOLOGICALLY CONSISTENT WITH BAILEY SPECIES ARE PRESENT. Performed at: WB Performed By: #### [id number] #### [facility] [address] [place] [address] Dr. Marlene Blanton HPV Aptima Negative Normal Negative [facility] Comment on above: Result Comment: This nucleic acid amplification test detects fourteen high-risk HPV types (16,18,31,33,35,39,45,51,52,56,58,59,66,68) without differentiation. Performed at: =G Performed By: #### [id number] #### [facility] [address] [place] [address] Dr. Marlene Blanton HPV Genotype Reflex Comment Normal [facility] Comment on above: Result Comment: Crit eria not met, HPV Genotype not performed. Performed at: WB Performed By: #### [id number] #### [facility] [address] [place] [address] Dr. Marlene Blanton Methodology: Comment Normal [facility] Comment on above: Result Comment: This liquid based ThinPrep(R) pap test was screened with the use of an image guided system. Performed at: WB Performed By: #### [id number] #### [facility] [address] [place] [address] Dr. Marlene Blanton Note: Comment Normal [facility] Comment on above: Result Comment: The Pap smear is a screening test designed to aid in the detection of premalignant and malignant conditions of the uterine cervix. It is not a diagnostic procedure and should not be used as the sole means of detecting cervical cancer. Both false-positive and false-negative reports do occur. . Performed at: WB Performed By: #### [id number] #### [facility] [address] [place] [address] Dr. Marlene Blanton Performed by: Comment Normal [facility] Comment on above: Result Comment: Marycruz Gillespie Culinary Instructor (ASCP) Performed at: WB Performed By: #### [id number] #### [facility] [address] [place] [address] Dr. Marlene Blanton Specimen adequacy: Comment Normal [facility] Comment on above: Result Comment: Sati sfactory for evaluation. No endocervical component is identified. Performed at: WB Performed By: #### [id number] #### [facility] [address] [place] [address] Dr. Marlene Blanton MG MAMM SCREEN 3D JENNIFER CADon 05-14-2022 MG MAMM SCREEN 3D JENNIFER CAD Patient: ELIZA COELLO Exam Date: 05/14/2022 : 1970 Gender:F Ordering : DR JAVID WATSON . Admission #: [id number] Family : DR JOSH HONG . Order #: [id number] CLICK HERE TO VIEW EXAM RADIOLOGY REPORT [...] melanoma cancer at age 19. LOCATION: [facility] BREAST COMPOSITION: Heterogeneously dense,which may obscure [...] M.D. on 05/14/2022 at 14:48 Normal [facility] US PELVIS AND TRANSVAGon US PELVIS [...] ROSSANA VELÁSQUEZ Date: 2022-05-09 13:04 Normal [facility] CBC AUTO DIFFon 05-08-2022 BASO # 0.1 103/ul Normal 0.0-0.1 [facility] Comment on above: Performed By: #### T SH #### [facility] [address] [address] [address] Marlene Blanton Basophils/100 WBC (Bld) 0.7 % Normal 0.2-2.0 [facility] Comment on above: Performed By: #### T SH #### [facility] [address] [place] [address] Dr. Marlene Blanton EO # 0.0 103/ul Normal 0.0-0.7 [facility] Comment on above: Performed By: #### T SH #### [facility] [address] [place] [address] Dr. Marlene Blanton Eosinophils/100 WBC (Bld) 0.0 % Critically low 0.9-7.0 [facility] Comment on above: Performed By: #### T SH #### [facility] [address] [place] [address] Dr. Marlene Blanton Erythrocyte distribution width (RBC) [Ratio] 13.4 % Normal 11.0-15.0 [facility] Comment on above: Performed By: #### T SH #### [facility] [address] [place] [address] Dr. Marlene Blanton Hematocrit (Bld) [Volume fraction] 42.1 % Normal 36.0-48.0 [facility] Comment on above: Performed By: #### T SH #### [facility] [address] [place] [address] Dr. Marlene Blanton Hemoglobin (Bld) [Mass/Vol] 13.8 g/dL Normal 12.0-16.0 [facility] Comment on above: Performed By: #### T SH #### [facility] [address] [place] [address] Dr. Marlene Blanton IG # 0.04 10e3/ul Critically high 0.00-0.03 [facility] Comment on above: Performed By: #### T SH #### [facility] [address] [place] [address] Dr. Marlene Blanton IG % 0.4 % Normal 0.0-0.5 [facility] Comment on above: Performed By: #### T SH #### [facility] [address] [place] [address] Dr. Marlene Blanton LYMPH # 2.1 103/ul Normal 1.2-3.8 [facility] Comment on above: Performed By: #### T SH #### [facility] [address] [place] [address] Dr. Marlene Blanton Lymphocytes/100 WBC (Bld) 23.3 % Normal 20.5-60.0 [facility] Comment on above: Performed By: #### T SH #### [facility] [address] [place] [address] Dr. Marlene Blanton MANUAL DIFF REQ NO Normal [facility] Comment on above: Performed By: #### T SH #### [facility] [address] [place] [address] Dr. Marlene Blanton MCH (RBC) [Entitic mass] 29.3 pg Normal 26.7-34.0 [facility] Comment on above: Performed By: #### T SH #### [facility] [address] [place] [address] Dr. Marlene Blanton MCHC (RBC) [Mass/Vol] 32.8 g/dL Normal 29.9-35.2 [facility] Comment on above: Performed By: #### T SH #### [facility] [address] [place] [address] Dr. Marlene Blanton MCV (RBC) [Entitic vol] 89.4 fL Normal 81.0-99.0 [facility] Comment on above: Performed By: #### T SH #### [facility] [address] [place] [address] Dr. Marlene Blanton MONO # 0.7 103/ul Normal 0.3-0.8 [facility] Comment on above: Performed By: #### T SH #### [facility] [address] [place] [address] Dr. Marlene Blanton Monocytes/100 WBC (Bld) 7.3 % Normal 1.7-12.0 [facility] Comment on above: Performed By: #### T SH #### [facility] [address] [place] [address] Dr. Marlene Blanton NEUT # 6.1 103/ul Normal 1.4-6.5 [facility] Comment on above: Performed By: #### T SH #### [facility] [address] [place] [address] Dr. Marlene Blanton Neutrophils/100 WBC (Bld) 68.3 % Normal 43.0-75.0 [facility] Comment on above: Performed By: #### T SH #### [facility] [address] [place] [address] Dr. Marlene Blanton Platelet mean volume (Bld) [Entitic vol] 8.8 fL Critically low 9.5-13.5 [facility] Comment on above: Performed By: #### T SH #### [facility] [address] [place] [address] Dr. Marlene Blanton PLT 310 103/ul Normal 150-450 [facility] Comment on above: Performed By: #### T SH #### [facility] [address] [place] [address] Dr. Marlene Blanton RBC 4.71 106/ul Normal 4.20-5.40 [facility] Comment on above: Performed By: #### T SH #### [facility] [address] [place] [address] Dr. Marlene Blanton WBC 9.0 103/ul Normal 4.0-11.0 [facility] Comment on above: Performed By: #### T SH #### [facility] [address] [place] [address] Dr. Marlene Blanton FREE T4on 05-08-2022 Free T4 [Mass/Vol] 1.09 ng/dL Normal 0.76-1.46 [facility] Comment on above: Performed By: #### T SH #### [facility] [address] [place] [address] Dr. Marlene Blanton PREG QUANT HCGon 05-08-2022 HCG QUANT 1 mIU/mL Normal [facility] Comment on above: Performed By: #### T SH, PREGQNT #### [facility] [address] [place] [address] Dr. Marlene Blanton HCG RANGE SEE BELOW Normal [facility] Comment on above: Result Comment: 5-50 0.2-1 WEEK 50-500 1-2 WEEKS 100-5,000 2-3 WEEKS 500-10,000 3-4 WEEKS 1,000-50,000 4-5 WEEKS 10,000-100,000 5-6 WEEKS 15,000-200,000 6-8 WEEKS 10,000-100,000 2-3 MONTHS Performed By: #### T SH, PREGQNT #### [facility] [address] [place] [address] Dr. Marlene Blanton PROTIMEon 05-08-2022 INR Coag (PPP) [Relative time] 0.95 {INR} Normal [facility] Comment on above: Performed By: #### C BC #### [facility] [address] [place] [address] Dr. Marlene Blanton INR GUIDELINES SEE BELOW Normal [facility] Comment on above: Result Comment: GLEN RED INR: 2.0 - 3.0 CONDITIONS NOT LISTED BELOW 2.5 - 3.5 FOR PROSTHETIC HEART VALVE REPLACEMENT 2.5 - 3.5 RECURRENT THROMBOSIS Performed By: #### C BC #### [facility] [address] [place] [address] Dr. Marlene Blanton PT Coag (PPP) [Time] 10.3 s Normal 9.0-11.6 [facility] Comment on above: Performed By: #### C BC #### [facility] [address] [place] [address] Dr. Marlene Blanton PTTon 05-08-2022 aPTT Coag (Bld) [Time] 26.3 s Normal 22.3-36.2 [facility] Comment on above: Performed By: #### C BC #### [facility] [address] [place] [address] Dr. Marlene Blanton TSHon 05-08-2022 TSH 4.001 uIU/mL Critically high 0.358-3.740 [facility] Comment on above: Performed By: #### T GREGORY, PREGQNT #### [facility] [address] [place] [address] Dr. Marlene Blanton Reminderson 06-01-2020 Reminders - From: Jesenia Price LPN To: N - Clinical; Sent: 06/01/2020 08:20:44 EST Show up: 04/24/2030 09:00:00 EDT Subject: colonoscopy recall Due Date/Time: 05/24/2030 09:00:00 EST Reminder/Recall Patient is due for screening colonoscopy 05/24/2030. Normal [facility] Ambulatory Clinical Summaryo n 05-31-2020 Ambulatory Clinical Summary {[id number]}CD:[id number] Normal [facility] General Surgery Office/Clini c Noteon 05-31-2020 [...] Corby BUITRAGO MD Only if needed [address] [id number]- Additional Instructions: Problem List/Past Medical History Ongoing [...] Primary malignant neoplasm of female breast: Mother. [facility] Comment on above: Result Comment: Elec tronically Signed By: Corby BUITRAGO MD\.br\Date and Time Signed: 05/31/20 16:31 EST Pathology Noteon 05-29-2020 Pathology Note [id number] D:127 Normal [facility] Outside Colonoscopyon 2019 Outside Colonoscopy [id number] D:127 [facility] Lab Reportson 05-25-2020 Lab Reports [id number] D:127 [facility] Provider Letter FTMCon 05-12 Provider Letter [facility] [place] Hong, [address] [place] [address] [place] [address] Re: ELIZA COELLO Date of : 1970 Thank you for your referral of Eliza Coello who was seen on consultation on May 09, 2020, for rectal bleeding, abdominal pain with bowel movements. A colonoscopy is ordered for further evaluation. I will be happy to follow Eliza. Sincerely, Corby Buitrago MD General Surgery Normal [facility] Ambulatory Clinical Summaryo n 05-09-2020 Ambulatory Clinical Summary {[id number]}CD:[id number] Normal [facility] General Surgery Office/Clini c Noteon 05-09-2020 [...] available Patient Education Exercise to Stay Healthy, Djas-cz-Pchd Problem List/Past Medical History Ongoing Abdominal pain, [...] of female breast: Mother. Normal [facility] Comment on above: Result Comment: Elec tronically Signed By: GABRIEL LAUREN, Corby Nick.layla\Date and Time Signed: 05/09/20 17:10 EST Patient [...] Document Reviewed: 07/12/2011 ExitCare? Patient Information ?2014 [employer]. Normal [facility] Physician Referralon 020 Physician Referral [id number] D:127 Normal [facility] Vital Signs Date Time Vital Sign Value Performing Clinician Ismael kunz 10-21-2023 14:00-0400 Diastolic blood pressure 72 mm[Hg] MD Josh Hong Work Phone: [facility] 10-21-2023 14:00-0400 Heart rate 77 /min MD Josh Hong Work Phone: [facility] 10-21-2023 14:00-0400 Respiratory rate 16 /min MD Josh Hong Work Phone: [facility] 10-21-2023 14:00-0400 SaO2% (BldA) [Mass fraction] 97 % MD Josh Hong Work Phone: [facility] 10-21-2023 14:00-0400 Systolic blood pressure 121 mm[Hg] MD Josh oHng Work Phone: [facility] 10-21-2023 10:52-0400 Body height 170.18 cm MD Josh Hong Work Phone: [facility] 10-21-2023 10:52-0400 Body weight 79.37 kg MD Josh Hong Work Phone: [facility] 10-03-2023 09:50-0400 Body height 170.18 cm MD Josh Hong Work Phone: [facility] 10-03-2023 09:50-0400 Body mass index (BMI) [Ratio] 28 kg/m2 MD Josh Hong Work Phone: [facility] 10-03-2023 09:50-0400 Body weight 81.19 kg MD Josh Hong Work Phone: [facility] 10-03-2023 09:50-0400 Diastolic blood pressure 79 mm[Hg] MD Josh Hong Work Phone: [facility] 10-03-2023 09:50-0400 Heart rate 74 /min MD Josh Hong Work Phone: [facility] 10-03-2023 09:50-0400 Systolic blood pressure 128 mm[Hg] MD Josh Hong Work Phone: [facility] Encounters Encounter Date Encounter Type Care Provider Facility Start: 11-06-2023 End: 11-06-2023 ambulatory JAVID WATSON Not Available Start: 10-21-2023 Non-patient / Non-visit MD Bennie Hong Work Phone: [facility] Work Phone: Start: 10-21-2023 End: 10-21-2023 ambulatory Elizabeth L Ly Facility:[facility] Start: 10-21-2023 End: 10-21-2023 Admission to same day surgery center MD Josh Hong Work Phone: [facility] Work Phone: Start: 10-21-2023 End: 10-21-2023 ambulatory MD Josh Hong Work Phone: [facility] Work Phone: Start: 10-03-2023 End: 10-03-2023 Patient encounter procedure MD Josh Hong Work Phone: [facility] Work Phone: Start: 05-14-2023 End: 05-14-2023 ambulatory REID JORGE Not Available Start: 10-30-2022 End: 10-31-[address] JOSH HOGN . Facility:[facility] Start: 07-04-2022 End: 07-05-[address] JAVID WATSON . Facility:[facility] Start: 06-21-2022 Encounter for preprocedural laboratory examination DR JAVID WATSON . [facility] Start: 06-20-2022 End: 06-21-[address] JAVID WATSON . Facility:[facility] Start: 06-19-2022 Encounter for preprocedural cardiovascular examination DR JAVID WATSON . [facility] Start: 06-19-2022 End: 06-20-[address] [...] Facility:[facility] Start: 05-08-2022 End: 05-09-[address] AJVID WATSON . Facility:[facility] Start: 05-07-2022 End: 05-07-[address] JAVID WATSON . Facility: Procedures Date Procedure Procedure Detail Performing Clinician Start: 10-21-2023 Esophagogastroduodenoscopy MD Josh Hong Work Phone: Plan of Treatment Date Care Activity Detail Author Start: 10-21-2023 [facility] Patient Education Gastritis Stomach polyp s [facility] Work Phone: Payers Date Payer Category Payer Self-pay 1970 Unknown [id number] 2.16.84 [id number] 1970 Unknown [id number] 2.16.84 [id number] 1970 Unknown [id number] 2.16.84 [id number] 1970 Unknown [id number] 2.16.84 0.1.852614.3.579.2.593 1970 Unknown [id number] 2.16.84 0.1.332627.3.579.2.593 1970 Unknown [id number] 2.16.84 0.1.680297.3.579.2.593 1970 Unknown [id number] 2.16.84 0.1.174388.3.579.2.593 1970 Unknown [id number] 2.16.84 0.1.636410.3.579.2.593 1970 Unknown [id number] 2.16.84 0.1.918119.3.579.2.593 1970 Unknown [id number] 2.16.84 0.1.178529.3.579.2.593 1970 Unknown [id number] 2.16.84 0.1.544293.3.579.2.593 1970 Unknown [id number] 2.16.84 0.1.712504.3.579.2.1259 1970 Unknown [id number] 2.16.840 .1.942484.3.579.2.1259 1959 Unknown [id number] Unknown [id number] 2.16.8 [id number] Social History Date Type Detail Facility Start: [facility]-21-[facility]23 [facility] Start: 1970 Sex Assigned At Female F [facility] Goals Date Patient Goal Desired Activity /State Procedure note 10-21-2023 Note Date & Type Note Facility 10-21-2023 Procedure note [facility] Procedure note 10-21-2023 Note Date & Type Note Facility 10-21-2023 Procedure note [facility] Clinical Note 06-20-2022 Note Date & Type Note Facility 06-20-2022 Note OPERATIVE NOTE OPERATION DATE: 06/20/2022 PROCEDURE: vNOTES hysterectomy with cystoscopy and bilateral salpingectomy. PREOPERATIVE DIAGNOSIS: Pelvic pressure, menorrhagia, dysmenorrhea, dyspareunia. POSTOPERATIVE DIAGNOSIS: Pelvic pressure, menorrhagia, dysmenorrhea, dyspareunia. ANESTHESIA: General. SURGEON: Javid Watson M.D. COMMERCIAL ENGINEER: PIYUSH Howell URINE OUTPUT: Yellow and clear. [...] Sponge, lap, needle counts correct x2. [facility] Evaluation note Note Date & Type Note Facility Evaluation note Diagnosis Onset Date Abdominal pain acute Bloating acute GERD (gastroesophageal reflux disease) acute Mucus in stool acute [facility] Work Phone: History and physical note Note Date & Type Note Facility History and physical note Note Date/Time October 21, 2023 12:42pm [facility] [address] [place] [address] Gastroenterology H&P Signed Patient: Eliza Coello MR#: [id number] : 1970 Acct:[id number] Age/Sex: 52 / F Adm Date: 4 Loc: Room: Type: [facility] Attending Dr: Elizabeth Perea DO Copies to: Elizabeth Perea, DO Josh Hong MD~ Date of Service: [...] signed by Elizabeth Perea DO> 10/21/23 1242 [facility] Work Phone: Summary Purpose Family History No [...] section and content) DATE CREATED AUTHOR 06/15/2020 [facility] DATE CREATED AUTHOR AUTHOR'S ORGANIZ ATION 11/03/2022 [facility] pital DATE CREATED AUTHOR AUTHOR'S ORGANIZ ATION 10/31/2023 [facility] DATE CREATED AUTHOR AUTHOR'S ORGANIZ ATION 11/08/2023 [facility] d[facility] Special[facility] EPIC Care Teams (unrecognized sec [...] BE BASED ON THE PRIMARY CLINICAL RECORDS. [facility] Jenn Rykert [facility]. provides no warranty or guarantee of the accuracy or completeness of information in this document.
[2023-12-26 09:17] LABS: Glucometer 84 mg/dL (74-106)
[2023-12-26] MEDS: LACTATED RINGER'S SOLUTION 1,000 ML 50 ML IV ×2 (09:36→12:10)
[2023-12-26] MEDS: SCOPOLAMINE 1 MG/3 DAYS TRANSDERM PATCH 1 PATCH TD (09:38)
--- NOTE | 2023-12-26 12:17 | P.ON_ITS ---
Brief Operative Note Date of procedure: 12/26/23 Pre-op diagnosis general: rt ovarian cyst, pelvic pain Post-op diagnosis: same as pre-op Procedure: NAME OF PROCEDURE: [diagnostic laparoscopy with rt ovarian cystectomy, removal of rt tubal remenant] small rt ovarian cyst PROCEDURE: The patient was taken back to the Operating Room where she was placed in dorsal lithotomy position after given general anesthesia. The patient was prepped and draped in normal sterile fashion. A sponge stick was placed into the patient's vagina. Attention was turned to the patient's abdomen, where a small umbilical incision was made. The fascia was tented using Elva clamps and the fascia was entered sharply. Confirmation of intraabdominal placement of the 10 mm port was confirmed under direct visualization using a laparoscope. The patient's abdomen was then insufflated using CO2 gas with approximately 4 liters. A second and third ports was placed laterally, this was done under direct visualization with a 5 mm port. Survey of the patient's abdomen demonstrated normal liver and gallbladder. Survey of the patient's pelvic anatomy demonstrated normal appearing lt ovary and small rt ovarian cyst. small rt tubal remenant was seen and removed using the ligasure, absent tubes and uterus No endometrial implants could be noted, no evidence of any pelvic disease was seen, normal appearing pelvic cavity. All instruments were removed from the patient's abdomen. The patient's abdomen was deinsufflated of CO2 gas. The patient tolerated the procedure well. Sponge stick was removed from the patient's vagina. The patient's infraumbilical fascia was closed using #0 Vicryl on a GI needle. The patient's skin was closed laterally and infraumbilically using 4-0 Vicryl. The patient tolerated the procedure well. Sponge, lap and needle counts were correct x 2. The patient was taken to Recovery Room in stable condition. Anesthesia: GETA Surgeon: Jaren Watson Dinkey Mechanic: Tricia Devine Estimated blood loss (mL): 5 Pathology: other (tube remenant) Condition: stable Disposition: PACU Urinary Catheter Management Urinary Catheter Management Urethral: Cath placed during this visit: no
[2023-12-26] MEDS: HYDROMORPHONE HCL 0.5 MG/0.5 ML SYRINGE IV (12:37)
[2023-12-26] MEDS: HYDROCODONE/ACET 5-325 MG TABLET 1 TAB PO (12:38)
== END 2023-12-26 14:15 | disposition home or self-care (01) ==
PROVIDERS: PCP Family Medicine; Visit Provider Obstetrics & Gynecology
PROC: (CPT 00840; principal; 2023-12-26 09:35)
DX: R10.2 Pelvic and perineal pain (principal); N83.201 Unspecified ovarian cyst, right side; Z90.710 Acquired absence of both cervix and uterus; Z90.49 Acquired absence of other specified parts of digestive tract; Z98.51 Tubal ligation status; K21.9 Gastro-esophageal reflux disease without esophagitis; K58.9 Irritable bowel syndrome, unspecified; F41.9 Anxiety disorder, unspecified; D64.9 Anemia, unspecified; Z86.718 Personal history of other venous thrombosis and embolism
CPT/HCPCS: 00840; 58661; 36415; 82948; 88305; J0131; J1100; J1170; J1885; J2405; J2704; J3010

== ENCOUNTER 2024-01-12 14:01 | Day surgery (SDC) | payer OTHER, SELFPAY ==
--- NOTE | 2024-01-12 14:05 | FL_ITS ---
[address] [address] Patient Name: RENETTA COELLO MRN: [id number] date: 1970 Sex: F [place]igned Patient Location: [place] Current Patient Location: [place] Accession/Order Number: [id number] Exam Date: 01/12/2024 14:40 Report Date: 01/12/2024 15:14 At the request of: LAWRENCE SANTAMARIA Procedure: FL guided needle placement EXAMINATION: FL hip inj LT, FL guided needle placement HISTORY: Left Hip Labral Tear COMPARISON: No relevant comparison available. FLUORO DOSE: Not known TECHNIQUE: A joint injection was performed in the usual sterile manner after obtaining informed consent. Standard level fluoroscopic mode of operation utilized. FINDINGS: JOINT: Left hip. NEEDLE: 22 gauge, 3.5 spinal needle. MEDICATION: 5cc buffered 1% lidocaine for subcutaneous anesthesia 3 mm and Omnipaque 300. 4 mm 0.5% Marcaine. 80 mg Depo-Medrol TECHNIQUE: Anterior approach with prior localization of the femoral artery. A single stick was successful in gaining access to the joint space. CLINICAL: 4 out of 10 pain before the injection. 5 out of 10 pain following the injection COMPLICATIONS: None. OTHER: Negative. FL/FL guided needle placement IMPRESSION: Technically successful left hip arthrogram with no reduction in the patient's pain Electronically authenticated by: ROSSANA VELÁSQUEZ Date: 01/12/2024 15:14
--- NOTE | 2024-01-12 14:05 | FL_ITS ---
[address] [address] Patient Name: RENETTA COELLO MRN: [id number] date: 1970 Sex: F Assigned Patient Location: PA Current Patient Location: PA Accession/Order Number: [id number] Exam Date: 01/12/2024 14:40 Report Date: 01/12/2024 15:14 At the request of: LAWRENCE SANTAMARIA Procedure: FL hip inj LT EXAMINATION: FL hip inj LT, FL guided needle placement HISTORY: Left Hip Labral Tear COMPARISON: No relevant comparison available. FLUORO DOSE: Not known TECHNIQUE: A joint injection was performed in the usual sterile manner after obtaining informed consent. Standard level fluoroscopic mode of operation utilized. FINDINGS: JOINT: Left hip. NEEDLE: 22 gauge, 3.5 spinal needle. MEDICATION: 5cc buffered 1% lidocaine for subcutaneous anesthesia 3 mm and Omnipaque 300. 4 mm 0.5% Marcaine. 80 mg Depo-Medrol TECHNIQUE: Anterior approach with prior localization of the femoral artery. A single stick was successful in gaining access to the joint space. CLINICAL: 4 out of 10 pain before the injection. 5 out of 10 pain following the injection COMPLICATIONS: None. OTHER: Negative. FL/FL hip inj LT IMPRESSION: Technically successful left hip arthrogram with no reduction in the patient's pain Electronically authenticated by: ROSSANA VELÁSQUEZ Date: 01/12/2024 15:14
[2024-01-12] MEDS: LIDOCAINE HCL 10 ML, SODIUM BICARBONATE 1 MEQ INJ (14:45)
[2024-01-12] MEDS: METHYLPREDNISOLONE ACETATE 80 MG/ML VIAL INJ (14:45)
--- NOTE | 2024-01-12 15:19 | SUR.PREOP ---
01/01/24 Pt instructed on procedure, date, time, and prep.
== END 2024-01-12 15:05 | disposition home or self-care (01) ==
LOC: FL 14:01
PROVIDERS: Radiology Diagnostic Radiology; PCP Family Medicine; Visit Provider Orthopaedic Surgery
DX: S73.192A Other sprain of left hip, initial encounter (principal)
CPT/HCPCS: 20610; 77002; J1010; Q9967

== ENCOUNTER 2024-03-09 13:34 | Day surgery (SDC) | payer OTHER, SELFPAY ==
--- NOTE | 2024-03-09 | MR_ITS ---
The [address] [address] Patient Name: RENETTA COELLO MRN: [id number] date: 1970 Sex: F Assigned Patient Location: MRI Current Patient Location: MRI Accession/Order Number: [id number] Exam Date: 03/09/2024 15:00 Report Date: 03/12/2024 14:48 At the request of: STEF ROMO Procedure: MR hip LT w con EXAMINATION: MR hip LT w con HISTORY: Left hip pain COMPARISON: 10/28/2023 TECHNIQUE: A comprehensive examination was performed utilizing a variety of imaging planes and imaging parameters to optimize visualization of suspected pathology. Images were performed without contrast. FINDINGS: FEMORAL HEAD: No avascular necrosis, fracture or dislocation. No bone edema. Mild osteoarthritis with marginal osteophyte formation. ACETABULUM: Normal. No fracture or significant arthropathy. OTHER BONES: Normal appearance of the visualized portion of the pelvis. LABRUM: Extension of injected contrast outside of the joint space with a poorly defined superior labrum EFFUSIONS: None. No synovitis or loose bodies. BURSAE: Normal. No evidence of iliopsoas or trochanteric bursitis. TENDONS: Normal. Normal gluteus tendons, iliopsoas tendon, and hamstring origin. MUSCLES: Normal. No tear or strain. No inappropriate atrophy. OTHER: 2.4 cm left adnexal cyst. MR/MR hip LT w con IMPRESSION: Superior labral tear Mild osteoarthritis Electronically authenticated by: ROSSANA VELÁSQUEZ Date: 03/12/2024 14:48
--- OUTSIDE RECORDS SUMMARY | 2024-03-09 13:54 | XMS_ITS | CCD ---
Author Organization [facility] Care Team Providers Care Washroom Cleaner Name Role Phone SHIRLEY ., DR HUA Consulting Unavailable HOY ., DR MORENO Primary Care Unavailable SHIRLEY ., DR HUA Attending Unavailable SHIRLEY ., DR HUA Admitting Unavailable VERONIQUE, JOSE Consulting Unavailable VELVET ESQUIVEL Consulting Unavailable GEMBUS, DICK Consulting Unavailable SHIRLEY ., DR HUA Consulting Unavailable HOY ., DR MORENO Primary Care Unavailable SHIRLEY ., DR HUA Attending Unavailable SHIRLEY ., DR HUA Admitting Unavailable SHIRLEY ., DR HUA Consulting Unavailable HOY ., DR MORENO Primary Care Unavailable SHIRLEY ., DR HUA Attending Unavailable SHIRLEY ., DR HUA Admitting Unavailable SHIRLEY ., DR HUA Consulting Unavailable HOY ., DR MORENO Primary Care Unavailable SHIRLEY ., DR HUA Attending Unavailable SHIRLEY ., DR HUA Admitting Unavailable SHIRLEY ., DR HUA Consulting Unavailable HOY ., DR MORENO Primary Care Unavailable SHIRLEY ., DR HUA Attending Unavailable SHIRLEY ., DR HUA Admitting Unavailable DYLAN, JOAN Consulting Unavailable HOY ., DR MORENO Primary Care Unavailable DYLAN, JOAN Attending Unavailable DYLAN, JOAN Admitting Unavailable DYLAN, JOAN Consulting Unavailable DIANE ., DR MORENO Primary Care Unavailable DYLAN, JOAN Attending Unavailable DYLAN, JOAN Admitting Unavailable SHIRLEY ., DR HUA Consulting Unavailable HOY ., DR MORENO Primary Care Unavailable SHIRLEY ., DR HUA Attending Unavailable SHIRLEY ., DR HUA Admitting Unavailable MALLORY, DR ROSSANA Teague Consulting Unavailable HOY ., DR MORENO Primary Care Unavailable SHIRLEY ., DR HUA Attending Unavailable SHIRLEY ., DR HUA Admitting Unavailable SHIRLEY ., DR HUA Consulting Unavailable SHIRLEY ., DR HUA Consulting Unavailable HOY ., DR MORENO Primary Care Unavailable SHIRLEY ., DR HUA Attending Unavailable SHIRLEY ., DR HUA Admitting Unavailable ZIEBTRENA, DR CHEIKH Salguero Consulting Unavailable HOY ., DR MORENO Consulting Unavailable ANTHONYY ., DR MORENO Primary Care Unavailable ANTHONYY ., DR MORENO Attending Unavailable ANTHONYY ., DR MORENO Admitting Unavailable MALLORY, DR ROSSANA Teague Consulting Unavailable MD Josh Hong Primary Care Provider Ly, DO Elizabeth Perez Attending Provider Shirley, DO Hua Attending Provider [phone] Ly, Elizabeth Perez Admitting Unavailable Ly, Elizabeth Perez Attending Unavailable Josh Hong Primary Care Unavailable Javid Watson Admitting Unavailable Javid Watson Attending Unavailable Josh Hong Primary Care Unavailable REID JORGE Attending Unavailable JAVID WATSON Attending Unavailable JAVID WATSON Attending Unavailable REID JORGE Attending Unavailable Allergies Allergy Classification Reported Allergen(s) Allergy Type Date of Onset Reaction(s) Facility (2 sources) Fluconazole Drug Allergy 06-23-2021 [facility] Repository (1 source) levoFLOXacin Drug Allergy [facility] Repository (1 source) levoFLOXacin Drug Allergy 10-21-2023 [facility] Repository Medications Current Medications Medication Drug Class(es) Dates Sig (Normalized) Sig (Original) Black elderberry (2 sources) Start: 10-08-2023 take 2000 mg by mouth twice daily Black elderberry Active 2000 MG PO Twice daily October 08, 2023 12:00am cholecalciferol 0.05 mg oral capsule (2 sources) Vitamin D Start: 10-03-2023 take 25 ug by mouth once daily Cholecalciferol (Vitamin D3) Active 25 MCG PO Daily October 03, 2023 12:00am 24 hr desvenlafaxine succinate 100 mg extended release oral tablet (2 sources) Serotonin and Norepinephrine Reuptake Inhibitor Start: 10-03-2023 take 1 tablet by mouth twice daily, then take 1 tablet by mouth every twenty-four hours Desvenlafaxine Succinate (Pristiq) 100 mg tablet extended release 24 hr Active 100 MG PO Twice daily October 03, 2023 12:00am diclofenac sodium 75 mg extended release oral tablet (2 sources) Nonsteroidal Anti-inflammatory Drug Start: 10-03-2023 take 75 mg by mouth twice daily Diclofenac Potassium Active 75 MG PO Twice daily October 03, 2023 12:00am folic acid 0.4 mg / vitamin b12 0.5 mg oral tablet (2 sources) Vitamin B12 Start: 10-08-2023 take 2 tablets by mouth once daily Vitamin U10-Iyfnu Acid Active 2 TAB PO Daily October 08, 2023 12:00am administer with a meal gabapentin 300 mg oral capsule (2 sources) Anti-epileptic Agent Start: 10-03-2023 take 300 mg by mouth three times daily Gabapentin Active 300 MG PO Three times daily October 03, 2023 12:00am pantoprazole 40 mg delayed release oral tablet (2 sources) Proton Pump Inhibitor Start: 10-08-2023 take 40 mg by mouth twice daily Pantoprazole Active 40 MG PO Twice daily October 08, 2023 12:00am rimegepant 75 mg disintegrating oral tablet (4 sources) Start: 10-21-2023 take 1 tablet by [...] Sig (Original) biotin 10 mg oral capsule (2 sources) Start: 10-03-2023 End: 10-08-2023 Biotin Discontinued MCG PO October 03, 2023 12:00am October 08, 2023 12:29pm omeprazole 40 mg delayed release oral capsule (2 sources) Proton Pump Inhibitor Start: 10-03-2023 End: 10-08-2023 take 40 mg by mouth twice daily Omeprazole Discontinued 40 MG PO Twice daily October 03, 2023 12:00am October 08, 2023 12:30pm Problems Active Problems Problem Classification Problem Date Documented Da te Episodic/Chronic Abdominal pain (6 sources) Pelvic and perineal pain; Translations: [Abdominal pain] Onset: 3 10-21-2023 Episodic Conditions associated with dizziness or vertigo (2 sources) Vertigo; Translations: [Dizziness and giddiness] 10-21-2023 Episodic Esophageal disorders (4 sources) Gastroesophageal reflux disease; Translations: [Gastro-esophageal reflux [...] SYNDROME] Onset: 3 Chronic Other gastrointestinal disorders (2 sources) Abdominal bloating; Translations: [Abdominal distension (gaseous)] 10-21-2023 Episodic Other gastrointestinal disorders (2 sources) Mucus in stool; Translations: [Other fecal abnormalities] 10-21-2023 Episodic Other gastrointestinal disorders (2 sources) Abdominal distension (gaseous); Translations: [Flatulence, eructation, and gas pain] 10-03-2023 Episodic Other gastrointestinal disorders (2 sources) Other fecal abnormalities; Translations: [Nonspecific abnormal findings in stool contents] 10-03-2023 Episodic Other skin disorders (2 sources) Vitiligo; Translations: [Vitiligo] 10-21-2023 Episodic Prolapse of [...] 07-03-2022 Episodic Other aftercare (1 source) Other residential (current) drug therapy; Translations: [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] Onset: 07-03-2022 Episodic Other aftercare (1 source) 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; Translations: [FDC USE ORAL HYPOGLYCEMIC DX] Onset: 07-03-2022 Episodic [...] Test Name Value Interpretation Reference Range Facility [facility] 12-26-2023 L Specimen: [id number] Received: 12/29/23 Status: ANUSHA Collier Num: [id number] Spec Type: Surgical Subm Dr: Javid Watson Tissues: A Fallopian Tube Biopsy (RT TUBE REMNANT) Procedures: HE/2, Gross/Micro L4 Age/ Patient Sex Location Account Attending Physician Eliza Coello 53/F LABELL [id number] Javid Watson SPEC NUM: [id number] RECD: 12/29/23 STATUS: ANUSHA COLLIER NUM: [id number] CECILE: 12/26/[address]: Javid Watson ENTERED: 12/29/[address] [facility] [address]: Glenda,Lab SPEC TYPE: Surgical DEPT: CASIMIRO KOHLI ORDERED: HE/2, Gross/Micro L4 ORDERED: HE/2, Gross/Micro L4 Pathological Diagnosis Right fallopian tube remnant, partial salpingectomy -Partial nonfimbriated segment of the benign slightly dilated fallopian tube remnant without atypia Clinical Information Pelvic pain, complex ovarian cyst Gross Description Received in formalin labeled with the patient's name, date of and right tube remnant is a 2.2 cm in length by 0.4 cm in diameter pale-menjivar to pink cylindrical membranous tissue fragment. The specimen is serially sectioned revealing a cystic cut surface expelling translucent watery like fluid. No normal tubal mucosa is identified. Drill Press Set Up Operator sections are submitted in A1. CPT Codes 45084 Specimen: [id number] Received: 12/29/23 Status: ANUSHA Collier Num: [id number] Spec Type: Surgical Subm Dr: Javid Watson Tissues: A Fallopian Tube Biopsy (RT TUBE REMNANT) Procedures: HE/Gigi, Gross/Micro L4 Patient: Eliza Coello [id number] (Continued) Signed (signature on file) Seth Blanton MD 12/30/23 4534 Normal [facility] Kevin 10-21-2023 L Specimen: [id number] Received: 10/21/23 Status: ANUSHA Collier Num: [id number] Spec Type: Surgical Subm Dr: Elizabeth Perea DO Tissues: A Small Intestine - Biopsy/Polyp (SMALL BOWEL) B GASTRIC FOR HP (GASTRIC HP) C Gastric Biopsy (GASTRIC POLYP) Procedures: HE/6, Gross/Micro L4/3, H PYLORI, IHC First AB Age/ Patient Sex Location Account Attending Physician OumouEliza denny 52/F [id number] Elizabeth Perea DO SPEC NUM: [id number] RECD: 10/21/23 STATUS: ANUSHA COLLIER NUM: [id number] CECILE: 10/21/23- SUBM DR: Elizabeth Perea DO ENTERED: 10/21/[address] [facility] [address]: SPEC TYPE: Surgical DEPT: S [...] tissue fragment, entirely submitted in B1. Specimen: [id number] Received: 10/21/23 Status: ANUSHA Collier Num: [id number] Spec Type: Surgical Subm Dr: Elizabeth Perea DO Tissues: A Small Intestine - Biopsy/Polyp (SMALL BOWEL) B GASTRIC FOR HP (GASTRIC HP) C Gastric Biopsy (GASTRIC POLYP) Procedures: HE/6, Gross/Micro L4/3, H PYLORI, IHC First AB Patient: OumouEliza [id number] (Continued) Specimen: [id number] Received: 10/21/23 (Continued) Gross Description (Continued) Signed (signature on file) Rossana Solares MD 10/22/23 1633 Specimen: [id number] Received: 10/21/23 Status: ANUSHA Collier Num: [id number] Spec Type: Surgical Subm Dr: Elizabeth Perea DO Tissues: A Small Intestine - Biopsy/Polyp (SMALL BOWEL) B GASTRIC FOR HP (GASTRIC HP) C Gastric Biopsy (GASTRIC POLYP) Procedures: HE/6, Gross/Micro L4/3, H PYLORI, IHC First AB Patient: Eliza Coello [id number] (Continued) Specimen: [id number] Received: 10/21/23 (Continued) Gross Description (Continued) C. Further labeled gastric polyp is a 0.4 x 0.2 x 0.1 cm menjivar mucosal tissue fragment, entirely submitted in C1. Clinical history: Rule out celiac, rule out H. pylori. CPT Codes 82572f5, 93810 Specimen: [id number] Received: 10/21/23 Status: ANUSHA Collier Num: [id number] Spec Type: Surgical Subm Dr: Elizabeth Perea, DO Tissues: A Small Intestine - Biopsy/Polyp (SMALL BOWEL) B GASTRIC FOR HP (GASTRIC HP) C Gastric Biopsy (GASTRIC POLYP) Procedures: HE/6, Gross/Micro L4/3, H PYLORI, IHC First AB Patient: OumouEliza Sharonda [id number] (Continued) Signed (signature on file) Rossana Solares MD 10/22/23 1633 Normal [facility] VC VENOUS REFLUX RT [facility] VC VENOUS REFLUX RT [facility] Patient: ROBERT COELLOFLASH Mcdonough. Exam Date: 10/30/2022 : 1970 Gender:F Ordering : DR JOSH HONG . Admission #: [id number] Family : Order #: [id number] CLICK HERE TO VIEW EXAM RADIOLOGY REPORT [...] Compressibility: Normal. Flow: Moderate deep venous reflux. Portuguese Tutor: None. Tech Note: Incompetent varicose vein lateral [...] MD on 10/30/2022 at 12:59 Normal [facility] CBC AUTO DIFFon 07-04-2022 BASO # 0.1 103/ul Normal 0.0-0.1 [facility] Comment on above: Performed By: #### T SH #### [facility] [address] [address] [address] Marlene Blanton Basophils/100 WBC (Bld) 0.6 % Normal 0.2-2.0 [facility] Comment on above: Performed By: #### T SH #### [facility] [address] [address] [address] Marlene Blanton EO # 0.0 103/ul Normal 0.0-0.7 [facility] Comment on above: Performed By: #### T SH #### [facility] [address] [address] [address] Marlene Blanton Eosinophils/100 WBC (Bld) 0.0 % Critically low 0.9-7.0 [facility] Comment on above: Performed By: #### T SH #### [facility] [address] [place] [address] Dr. Marlene Blanton Erythrocyte distribution width (RBC) [Ratio] 13.3 % Normal 11.0-15.0 [facility] Comment on above: Performed By: #### T SH #### [facility] [address] [place] [address] Dr. Marlene Blanton Hematocrit (Bld) [Volume fraction] 42.3 % Normal 36.0-48.0 [facility] Comment on above: Performed By: #### T SH #### [facility] [address] [place] [address] Dr. Marlene Blanton Hemoglobin (Bld) [Mass/Vol] 13.0 g/dL Normal 12.0-16.0 [facility] Comment on above: Performed By: #### T SH #### [facility] [address] [place] [address] Dr. Marlene Blanton IG # 0.04 10e3/ul Critically high 0.00-0.03 [facility] Comment on above: Performed By: #### T SH #### [facility] [address] [place] [address] Dr. Marlene Blanton IG % 0.4 % Normal 0.0-0.5 [facility] Comment on above: Performed By: #### T SH #### [facility] [address] [place] [address] Dr. Marlene Blanton LYMPH # 2.0 103/ul Normal 1.2-3.8 [facility] Comment on above: Performed By: #### T SH #### [facility] [address] [place] [address] Dr. Marlene Blanton Lymphocytes/100 WBC (Bld) 19.0 % Critically low 20.5-60.0 [facility] Comment on above: Performed By: #### T SH #### [facility] [address] [place] [address] Dr. Marlene Blanton MANUAL DIFF REQ NO Normal [facility] Comment on above: Performed By: #### T SH #### [facility] [address] [place] [address] Dr. Marlene Blanton MCH (RBC) [Entitic mass] 29.6 pg Normal 26.7-34.0 [facility] Comment on above: Performed By: #### T SH #### [facility] [address] [place] [address] Dr. Marlene Blanton MCHC (RBC) [Mass/Vol] 30.7 g/dL Normal 29.9-35.2 [facility] Comment on above: Performed By: #### T SH #### [facility] [address] [address] [address] Marlene Blanton MCV (RBC) [Entitic vol] 96.4 fL Normal 81.0-99.0 [facility] Comment on above: Performed By: #### T SH #### [facility] [address] [place] [address] Dr. Marlene Blanton MONO # 0.7 103/ul Normal 0.3-0.8 [facility] Comment on above: Performed By: #### T SH #### [facility] [address] [place] [address] Dr. Marlene Blanton Monocytes/100 WBC (Bld) 6.6 % Normal 1.7-12.0 [facility] Comment on above: Performed By: #### T SH #### [facility] [address] [place] [address] Dr. Marlene Blanton NEUT # 7.7 103/ul Critically high 1.4-6.5 [facility] Comment on above: Performed By: #### T SH #### [facility] [address] [place] [address] Dr. Marlene Blanton Neutrophils/100 WBC (Bld) 73.4 % Normal 43.0-75.0 [facility] Comment on above: Performed By: #### T SH #### [facility] [address] [place] [address] Dr. Marlene Blanton Platelet mean volume (Bld) [Entitic vol] 8.9 fL Critically low 9.5-13.5 [facility] Comment on above: Performed By: #### T SH #### [facility] [address] [place] [address] Dr. Marlene Blanton PLT 288 103/ul Normal 150-450 [facility] Comment on above: Performed By: #### T SH #### [facility] [address] [place] [address] Dr. Marlene Blanton RBC 4.39 106/ul Normal 4.20-5.40 [facility] Comment on above: Performed By: #### T SH #### [facility] [address] [place] [address] Dr. Marlene Blanton WBC 10.5 103/ul Normal 4.0-11.0 [facility] Comment on above: Performed By: #### T SH #### [facility] [address] [place] [address] Dr. Marlene Blanton FREE T4on 07-04-2022 Free T4 [Mass/Vol] 0.98 ng/dL Normal 0.76-1.46 [facility] Comment on above: Performed By: #### F T4 #### [facility] [address] [place] [address] Dr. Marlene Blanton PROTIMEon 07-04-2022 INR Coag (PPP) [Relative time] 0.95 {INR} Normal [facility] Comment on above: Performed By: #### P T, PTT #### [facility] [address] [place] [address] Dr. Marlene Blanton INR GUIDELINES SEE BELOW Normal [facility] Comment on above: Result Comment: GLEN RED INR: 2.0 - 3.0 CONDITIONS NOT LISTED BELOW 2.5 - 3.5 FOR PROSTHETIC HEART VALVE REPLACEMENT 2.5 - 3.5 RECURRENT THROMBOSIS Performed By: #### P T, PTT #### [facility] [address] [place] [address] Dr. Marlene Blanton PT Coag (PPP) [Time] 10.1 s Normal 9.0-11.6 [facility] Comment on above: Performed By: #### P T, PTT #### [facility] [address] [place] [address] Dr. Marlene Blanton PTTon 07-04-2022 aPTT Coag (Bld) [Time] 27.2 s Normal 22.3-36.2 [facility] Comment on above: Performed By: #### P T, PTT #### [facility] [address] [place] [address] Dr. Marlene Blanton TSHon 07-04-2022 TSH 1.916 uIU/mL Normal 0.358-3.740 [facility] Comment on above: Performed By: #### T SH #### [facility] [address] [place] [address] Dr. Marlene Blanton BUNon 06-21-2022 Urea nitrogen [Mass/Vol] 8.0 mg/dL Normal 7.0-18.0 [facility] Comment on above: Performed By: #### C BC #### [facility] [address] [place] [address] Dr. Marlene Blanton CBC AUTO DIFFon 06-21-2022 BASO # 0.0 103/ul Normal 0.0-0.1 [facility] Comment on above: Performed By: #### T SH #### [facility] [address] [place] [address] Dr. Marlene Blanton Basophils/100 WBC (Bld) 0.2 % Normal 0.2-2.0 [facility] Comment on above: Performed By: #### T SH #### [facility] [address] [place] [address] Dr. Marlene Blanton EO # 0.0 103/ul Normal 0.0-0.7 [facility] Comment on above: Performed By: #### T SH #### [facility] [address] [place] [address] Dr. Marlene Blanton Eosinophils/100 WBC (Bld) 0.1 % Critically low 0.9-7.0 [facility] Comment on above: Performed By: #### T SH #### [facility] [address] [place] [address] Dr. Marlene Blanton Erythrocyte distribution width (RBC) [Ratio] 13.4 % Normal 11.0-15.0 [facility] Comment on above: Performed By: #### T SH #### [facility] [address] [place] [address] Dr. Marlene Blanton Hematocrit (Bld) [Volume fraction] 33.6 % Critically low 36.0-48.0 [facility] Comment on above: Performed By: #### T SH #### [facility] [address] [place] [address] Dr. Marlene Blanton Hemoglobin (Bld) [Mass/Vol] 10.8 g/dL Critically low 12.0-16.0 [facility] Comment on above: Result Comment: post surgery Performed By: #### T SH #### [facility] [address] [place] [address] Dr. Marlene Blanton IG # 0.06 10e3/ul Critically high 0.00-0.03 [facility] Comment on above: Performed By: #### T SH #### [facility] [address] [place] [address] Dr. Marlene Blanton IG % 0.5 % Normal 0.0-0.5 [facility] Comment on above: Performed By: #### T SH #### [facility] [address] [place] [address] Dr. Marlene Blanton LYMPH # 2.0 103/ul Normal 1.2-3.8 [facility] Comment on above: Performed By: #### T SH #### [facility] [address] [place] [address] Dr. Marlene Blanton Lymphocytes/100 WBC (Bld) 16.1 % Critically low 20.5-60.0 [facility] Comment on above: Performed By: #### T SH #### [facility] [address] [place] [address] Dr. Marlene Blanton MANUAL DIFF REQ NO Normal [facility] Comment on above: Performed By: #### T SH #### [facility] [address] [place] [address] Dr. Marlene Blanton MCH (RBC) [Entitic mass] 29.0 pg Normal 26.7-34.0 [facility] Comment on above: Performed By: #### T SH #### [facility] [address] [place] [address] Dr. Marlene Blanton MCHC (RBC) [Mass/Vol] 32.1 g/dL Normal 29.9-35.2 [facility] Comment on above: Performed By: #### T SH #### [facility] [address] [address] [address] Marlene Blanton MCV (RBC) [Entitic vol] 90.1 fL Normal 81.0-99.0 [facility] Comment on above: Performed By: #### T SH #### [facility] [address] [address] [address] Marlene Blanton MONO # 0.7 103/ul Normal 0.3-0.8 [facility] Comment on above: Performed By: #### T SH #### [facility] [address] [place] [address] Dr. Marlene Blanton Monocytes/100 WBC (Bld) 5.3 % Normal 1.7-12.0 [facility] Comment on above: Performed By: #### T SH #### [facility] [address] [place] [address] Dr. Marlene Blanton NEUT # 9.7 103/ul Critically high 1.4-6.5 [facility] Comment on above: Performed By: #### T SH #### [facility] [address] [place] [address] Dr. Marlene Blanton Neutrophils/100 WBC (Bld) 77.8 % Critically high 43.0-75.0 [facility] Comment on above: Performed By: #### T SH #### [facility] [address] [place] [address] Dr. Marlene Blanton Platelet mean volume (Bld) [Entitic vol] 8.5 fL Critically low 9.5-13.5 [facility] Comment on above: Performed By: #### T SH #### [facility] [address] [place] [address] Dr. Marlene Blanton PLT 248 103/ul Normal 150-450 [facility] Comment on above: Performed By: #### T SH #### [facility] [address] [place] [address] Dr. Marlene Blanton RBC 3.73 106/ul Critically low 4.20-5.40 [facility] Comment on above: Performed By: #### T SH #### [facility] [address] [place] [address] Dr. Marlene Blanton WBC 12.4 103/ul Critically high 4.0-11.0 [facility] Comment on above: Performed By: #### T SH #### [facility] [address] [place] [address] Dr. Marlene Blanton CREATININEon 06-21-2022 Creatinine [Mass/Vol] 0.87 mg/dL Normal 0.55-1.02 [facility] Comment on above: Performed By: #### C BC #### [facility] [address] [place] [address] Dr. Marlene Blanton EGFR-AF THAI >60 Normal >=60 [facility] Comment on above: Performed By: #### C BC #### [facility] [address] [place] [address] Dr. Marlene Blanton EGFR-NON AF THAI >60 Normal >=60 [facility] Comment on above: Performed By: #### C BC #### [facility] [address] [place] [address] Dr. Marlene Blanton CBC AUTO DIFFon 06-19-2022 BASO # 0.1 103/ul Normal 0.0-0.1 [facility] Comment on above: Performed By: #### C BC #### [facility] [address] [place] [address] Dr. Marlene Blanton Basophils/100 WBC (Bld) 0.5 % Normal 0.2-2.0 [facility] Comment on above: Performed By: #### C BC #### [facility] [address] [place] [address] Dr. Marlene Blanton EO # 0.0 103/ul Normal 0.0-0.7 [facility] Comment on above: Performed By: #### C BC #### [facility] [address] [place] [address] Dr. Marlene Blanton Eosinophils/100 WBC (Bld) 0.1 % Critically low 0.9-7.0 [facility] Comment on above: Performed By: #### C BC #### [facility] [address] [place] [address] Dr. Marlene Blanton Erythrocyte distribution width (RBC) [Ratio] 13.4 % Normal 11.0-15.0 [facility] Comment on above: Performed By: #### C BC #### [facility] [address] [place] [address] Dr. Marlene Blanton Hematocrit (Bld) [Volume fraction] 39.8 % Normal 36.0-48.0 [facility] Comment on above: Performed By: #### C BC #### [facility] [address] [place] [address] Dr. Marlene Blanton Hemoglobin (Bld) [Mass/Vol] 13.2 g/dL Normal 12.0-16.0 [facility] Comment on above: Performed By: #### C BC #### [facility] [address] [place] [address] Dr. Marlene Blanton IG # 0.05 10e3/ul Critically high 0.00-0.03 [facility] Comment on above: Performed By: #### C BC #### [facility] [address] [place] [address] Dr. Marlene Blanton IG % 0.5 % Normal 0.0-0.5 [facility] Comment on above: Performed By: #### C BC #### [facility] [address] [place] [address] Dr. Marlene Blanton LYMPH # 2.4 103/ul Normal 1.2-3.8 [facility] Comment on above: Performed By: #### C BC #### [facility] [address] [place] [address] Dr. Marlene Blanton Lymphocytes/100 WBC (Bld) 24.7 % Normal 20.5-60.0 [facility] Comment on above: Performed By: #### C BC #### [facility] [address] [place] [address] Dr. Marlene Blanton MANUAL DIFF REQ NO Normal [facility] Comment on above: Performed By: #### C BC #### [facility] [address] [place] [address] Dr. Marlene Blanton MCH (RBC) [Entitic mass] 29.7 pg Normal 26.7-34.0 [facility] Comment on above: Performed By: #### C BC #### [facility] [address] [place] [address] Dr. Marlene Blanton MCHC (RBC) [Mass/Vol] 33.2 g/dL Normal 29.9-35.2 [facility] Comment on above: Performed By: #### C BC #### [facility] [address] [place] [address] Dr. Marlene Blanton MCV (RBC) [Entitic vol] 89.4 fL Normal 81.0-99.0 [facility] Comment on above: Performed By: #### C BC #### [facility] [address] [place] [address] Dr. Marlene Blanton MONO # 0.8 103/ul Normal 0.3-0.8 [facility] Comment on above: Performed By: #### C BC #### [facility] [address] [place] [address] Dr. Marlene Blanton Monocytes/100 WBC (Bld) 7.9 % Normal 1.7-12.0 [facility] Comment on above: Performed By: #### C BC #### [facility] [address] [place] [address] Dr. Marlene Blanton NEUT # 6.3 103/ul Normal 1.4-6.5 [facility] Comment on above: Performed By: #### C BC #### [facility] [address] [place] [address] Dr. Marlene Blanton Neutrophils/100 WBC (Bld) 66.3 % Normal 43.0-75.0 [facility] Comment on above: Performed By: #### C BC #### [facility] [address] [place] [address] Dr. Marlene Blanton Platelet mean volume (Bld) [Entitic vol] 8.3 fL Critically low 9.5-13.5 [facility] Comment on above: Performed By: #### C BC #### [facility] [address] [address] [address] Marlene Blanton PLT 300 103/ul Normal 150-450 [facility] Comment on above: Performed By: #### C BC #### [facility] [address] [address] [address] Marlene Blanton RBC 4.45 106/ul Normal 4.20-5.40 [facility] Comment on above: Performed By: #### C BC #### [facility] [address] [address] [address] Marlene Blanton WBC 9.6 103/ul Normal 4.0-11.0 [facility] Comment on above: Performed By: #### C BC #### [facility] [address] [place] [address] Dr. Marlene Blanton PREG QUANT HCGon 06-19-2022 HCG QUANT 1 mIU/mL Normal [facility] Comment on above: Performed By: #### P REGQNT #### [facility] [address] [place] [address] Dr. Marlene Blanton HCG RANGE SEE BELOW Normal [facility] Comment on above: Result Comment: 5-50 0.2-1 WEEK 50-500 1-2 WEEKS 100-5,000 2-3 WEEKS 500-10,000 3-4 WEEKS 1,000-50,000 4-5 WEEKS 10,000-100,000 5-6 WEEKS 15,000-200,000 6-8 WEEKS 10,000-100,000 2-3 MONTHS Performed By: #### P REGQNT #### [facility] [address] [address] [address] Marlene Blanton TYPE AND SCREENon 06-19-2022 TYPE AND SCREEN Negative Normal [facility] Comment on above: Performed By: #### C BC #### [facility] [address] [place] [address] Dr. Marlene Blanton ASYMPTOMATIC COVID-19 ANTIGE Non 05-28-2022 EUA Statement SEE BELOW Normal [facility] Comment on above: Result Comment: [...] sooner. Performed By: #### C BC #### [facility] [address] [place] [address] Dr. Marlene Blanton SARS-CoV-2 (COVID-19) RNA [place]+probe Ql (Unsp spec) Positive Critically abnormal NEGATIVE [facility] Comment on above: Result Comment: SARS -CoV-2 antigen present; does not rule out coinfection with other pathogens. Performed By: #### C BC #### [facility] [address] [address] [address] Marlene Blanton [facility] SARS-CoV-2 (COVID-19) RNA [place]+probe Ql (Unsp spec) Detected Critically abnormal NOT DETECTED [facility] Comment on above: Result Comment: This test is not yet approved or cleared by the [place] FDA. When there are no FDA-approved or cleared tests available, and other criteria are met, FDA can make tests available under an emergency access mechanism called an Emergency Use Authorization (EUA). The EUA for this test is supported by the [place] of Health and Human Service's declaration that [...] used). Performed By: #### C VDTBH #### [facility] [address] [place] [address] Dr. Marlene Blanton PAP ACOG PANEL 2: 30 to 65on 05-15-2022 . . Normal [facility] Comment on above: Result Comment: Perf ormed at: WB Performed By: #### [id number] #### [facility] [address] [place] [address] Dr. Marlene Blanton Age Gdln ACOG Testing 30-65 Normal [facility] Comment on above: Performed By: #### [id number] #### [facility] [address] [place] [address] Dr. Marlene Blanton DIAGNOSIS: Comment Normal [facility] Comment on above: Result Comment: NEGA TIVE FOR INTRAEPITHELIAL LESION OR MALIGNANCY. FUNGAL ORGANISMS MORPHOLOGICALLY CONSISTENT WITH BAILEY SPECIES ARE PRESENT. Performed at: WB Performed By: #### [id number] #### [facility] [address] [place] [address] Dr. Marlene Blanton HPV Aptima Negative Normal Negative [facility] Comment on above: Result Comment: This nucleic acid amplification test detects fourteen high-risk HPV types (16,18,31,33,35,39,45,51,52,56,58,59,66,68) without differentiation. Performed at: =G Performed By: #### [id number] #### [facility] [address] [place] [address] Dr. Marlene Blanton HPV Genotype Reflex Comment Normal [facility] Comment on above: Result Comment: Crit eria not met, HPV Genotype not performed. Performed at: WB Performed By: #### [id number] #### [facility] [address] [place] [address] Dr. Marlene Blanton Methodology: Comment Normal [facility] Comment on above: Result Comment: This liquid based ThinPrep(R) pap test was screened with the use of an image guided system. Performed at: WB Performed By: #### [id number] #### [facility] [address] [place] [address] Dr. Marlene Blanton Note: Comment Normal [facility] Comment on above: Result Comment: The Pap smear is a screening test designed to aid in the detection of premalignant and malignant conditions of the uterine cervix. It is not a diagnostic procedure and should not be used as the sole means of detecting cervical cancer. Both false-positive and false-negative reports do occur. . Performed at: WB Performed By: #### [id number] #### [facility] [address] [address] [address] Marlene Blanton Performed by: Comment Normal [facility] Comment on above: Result Comment: Marycruz Gilles[employer] (ASCP) Performed at: WB Performed By: #### 4 [id number] #### [facility] [address] [address] [address] Marlene Blanton Specimen adequacy: Comment Normal [facility] Comment on above: Result Comment: Sati sfactory for evaluation. No endocervical component is identified. Performed at: WB Performed By: #### [id number] #### [facility] [address] [address] [address] Marlene Blanton MG MAMM SCREEN 3D JENNIFER CADon 05-14-2022 MG MAMM SCREEN 3D JENNIFER CAD Patient: ELIZA COELLO Exam Date: 05/14/2022 : 1970 Gender:F Ordering : DR JAVID WATSON . Admission #: [id number] Family : DR JOSH HONG . Order #: [id number] CLICK HERE TO VIEW EXAM RADIOLOGY REPORT [...] melanoma cancer at age 19. LOCATION: [facility] BREAST COMPOSITION: Heterogeneously dense,which may obscure small [...] M.D. on 05/14/2022 at 14:48 Normal [facility] US PELVIS AND TRANSVAGon US PELVIS AND [...] ROSSANA VELÁSQUEZ Date: 2022-05-09 13:04 Normal [facility] CBC AUTO DIFFon 05-08-2022 BASO # 0.1 103/ul Normal 0.0-0.1 [facility] Comment on above: Performed By: #### T SH #### [facility] [address] [place] [address] Dr. Marlene Blanton Basophils/100 WBC (Bld) 0.7 % Normal 0.2-2.0 [facility] Comment on above: Performed By: #### T SH #### [facility] [address] [place] [address] Dr. Marlene Blanton EO # 0.0 103/ul Normal 0.0-0.7 [facility] Comment on above: Performed By: #### T SH #### [facility] [address] [place] [address] Dr. Marlene Blanton Eosinophils/100 WBC (Bld) 0.0 % Critically low 0.9-7.0 [facility] Comment on above: Performed By: #### T SH #### [facility] [address] [place] [address] Dr. Marlene Blanton Erythrocyte distribution width (RBC) [Ratio] 13.4 % Normal 11.0-15.0 [facility] Comment on above: Performed By: #### T SH #### [facility] [address] [place] [address] Dr. Marlene Blanton Hematocrit (Bld) [Volume fraction] 42.1 % Normal 36.0-48.0 [facility] Comment on above: Performed By: #### T SH #### [facility] [address] [place] [address] Dr. Marlene Blanton Hemoglobin (Bld) [Mass/Vol] 13.8 g/dL Normal 12.0-16.0 [facility] Comment on above: Performed By: #### T SH #### [facility] [address] [place] [address] Dr. Marlene Blanton IG # 0.04 10e3/ul Critically high 0.00-0.03 [facility] Comment on above: Performed By: #### T SH #### [facility] [address] [place] [address] Dr. Marlene Blanton IG % 0.4 % Normal 0.0-0.5 [facility] Comment on above: Performed By: #### T SH #### [facility] [address] [place] [address] Dr. Marlene Blanton LYMPH # 2.1 103/ul Normal 1.2-3.8 [facility] Comment on above: Performed By: #### T SH #### [facility] [address] [place] [address] Dr. Marlene Blanton Lymphocytes/100 WBC (Bld) 23.3 % Normal 20.5-60.0 [facility] Comment on above: Performed By: #### T SH #### [facility] [address] [place] [address] Dr. Marlene Blanton MANUAL DIFF REQ NO Normal [facility] Comment on above: Performed By: #### T SH #### [facility] [address] [place] [address] Dr. Marlene Blanton MCH (RBC) [Entitic mass] 29.3 pg Normal 26.7-34.0 [facility] Comment on above: Performed By: #### T SH #### [facility] [address] [place] [address] Dr. Marlene Blanton MCHC (RBC) [Mass/Vol] 32.8 g/dL Normal 29.9-35.2 [facility] Comment on above: Performed By: #### T SH #### [facility] [address] [place] [address] Dr. Marlene Blanton MCV (RBC) [Entitic vol] 89.4 fL Normal 81.0-99.0 [facility] Comment on above: Performed By: #### T SH #### [facility] [address] [place] [address] Dr. Marlene Blanton MONO # 0.7 103/ul Normal 0.3-0.8 [facility] Comment on above: Performed By: #### T SH #### [facility] [address] [place] [address] Dr. Marlene Blanton Monocytes/100 WBC (Bld) 7.3 % Normal 1.7-12.0 [facility] Comment on above: Performed By: #### T SH #### [facility] [address] [place] [address] Dr. Marlene Blanton NEUT # 6.1 103/ul Normal 1.4-6.5 [facility] Comment on above: Performed By: #### T SH #### [facility] [address] [place] [address] Dr. Marlene Blanton Neutrophils/100 WBC (Bld) 68.3 % Normal 43.0-75.0 [facility] Comment on above: Performed By: #### T SH #### [facility] [address] [place] [address] Dr. Marlene Blanton Platelet mean volume (Bld) [Entitic vol] 8.8 fL Critically low 9.5-13.5 [facility] Comment on above: Performed By: #### T SH #### [facility] [address] [place] [address] Dr. Marlene Blanton PLT 310 103/ul Normal 150-450 [facility] Comment on above: Performed By: #### T SH #### [facility] [address] [place] [address] Dr. Marlene Blanton RBC 4.71 106/ul Normal 4.20-5.40 [facility] Comment on above: Performed By: #### T SH #### [facility] [address] [place] [address] Dr. Marlene Blanton WBC 9.0 103/ul Normal 4.0-11.0 [facility] Comment on above: Performed By: #### T SH #### [facility] [address] [place] [address] Dr. Marlene Blanton FREE T4on 05-08-2022 Free T4 [Mass/Vol] 1.09 ng/dL Normal 0.76-1.46 [facility] Comment on above: Performed By: #### T SH #### [facility] [address] [place] [address] Dr. Marlene Blanton PREG QUANT HCGon 05-08-2022 HCG QUANT 1 mIU/mL Normal [facility] Comment on above: Performed By: #### T SH, PREGQNT #### [facility] [address] [place] [address] Dr. Marlene Blanton HCG RANGE SEE BELOW Normal [facility] Comment on above: Result Comment: 5-50 0.2-1 WEEK 50-500 1-2 WEEKS 100-5,000 2-3 WEEKS 500-10,000 3-4 WEEKS 1,000-50,000 4-5 WEEKS 10,000-100,000 5-6 WEEKS 15,000-200,000 6-8 WEEKS 10,000-100,000 2-3 MONTHS Performed By: #### T SH, PREGQNT #### [facility] [address] [place] [address] Dr. Marlene Blanton PROTIMEon 05-08-2022 INR Coag (PPP) [Relative time] 0.95 {INR} Normal [facility] Comment on above: Performed By: #### C BC #### [facility] [address] [place] [address] Dr. Marlene Blanton INR GUIDELINES SEE BELOW Normal [facility] Comment on above: Result Comment: GLEN RED INR: 2.0 - 3.0 CONDITIONS NOT LISTED BELOW 2.5 - 3.5 FOR PROSTHETIC HEART VALVE REPLACEMENT 2.5 - 3.5 RECURRENT THROMBOSIS Performed By: #### C BC #### [facility] [address] [place] [address] Dr. Marlene Blanton PT Coag (PPP) [Time] 10.3 s Normal 9.0-11.6 [facility] Comment on above: Performed By: #### C BC #### [facility] [address] [place] [address] Dr. Marlene Blanton PTTon 05-08-2022 aPTT Coag (Bld) [Time] 26.3 s Normal 22.3-36.2 [facility] Comment on above: Performed By: #### C BC #### [facility] [address] [place] [address] Dr. Marlene Blanton TSHon 05-08-2022 TSH 4.001 uIU/mL Critically high 0.358-3.740 [facility] Comment on above: Performed By: #### T SH, PREGQNT #### [facility] [address] [place] [address] Dr. Marlene Blanton Reminderson 06-01-2020 Reminders - From: Jesenia Price LPN To: GSN - Clinical; Sent: 06/01/2020 08:20:44 EST Show up: 04/24/2030 09:00:00 EDT Subject: colonoscopy recall Due Date/Time: 05/24/2030 09:00:00 EST Reminder/Recall Patient is due for screening colonoscopy 05/24/2030. Normal [facility] Ambulatory Clinical Summaryo n 05-31-2020 Ambulatory Clinical Summary {[id number]}CD:[id number] Normal [facility] General Surgery Office/Clini c Noteon 05-31-2020 [...] [place]gu[place] Only if needed [address] [place] [address]- Additional Instructions: Problem List/Past Medical History Ongoing [...] Primary malignant neoplasm of female breast: Mother. [facility] Comment on above: Result Comment: Elec tronically Signed By: GABRIEL LAUREN, Corby Salguero\.layla\Date and Time Signed: 05/31/20 16:31 EST Pathology Noteon 05-29-2020 Pathology Note [id number] D:127 Normal [facility] Outside Colonoscopyon 2019 Outside Colonoscopy [id number] D:127 [facility] Lab Reportson 05-25-2020 Lab Reports [id number] D:127 Normal [facility] Provider Letter FTon 05-12 Provider Letter [facility] Josh Hong, [address] [place] [address] [place] [address] Re: ELIZA COELLO Date of : 1970 Thank you for your referral of Eliza Coello who was seen on consultation on May 09, 2020, for rectal bleeding, abdominal pain with bowel movements. A colonoscopy is ordered for further evaluation. I will be happy to follow Eliza. Sincerely, Corby Buitrago MD General Surgery [facility] Ambulatory Clinical Summaryo n 05-09-2020 Ambulatory Clinical Summary {[id number]}CD:[id number] Normal [facility] General Surgery Office/Clini c Noteon 05-09-2020 [...] available Patient Education Exercise to Stay Healthy, [id number] Problem List/Past Medical History Ongoing Abdominal pain, [...] malignant neoplasm of female breast: Mother. Normal [facility] Comment on above: Result Comment: Elec tronically [...] Document Reviewed: 07/12/2011 ExitCare? Patient Information ?2013 [employer]. Normal [facility] Physician Referralon 020 Physician Referral [id number] D:127 Normal [facility] Vital Signs Date Time Vital Sign Value Performing Clinician Ismael kunz 10-21-2023 14:00-0400 Diastolic blood pressure 72 mm[Hg] MD Josh Hong Work Phone: [facility] 10-21-2023 14:00-0400 Heart rate 77 /min MD Josh Hong Work Phone: [facility] 10-21-2023 14:00-0400 Respiratory rate 16 /min MD Josh Hong Work Phone: [facility] 10-21-2023 14:00-0400 SaO2% (BldA) [Mass fraction] 97 % MD Josh Hong Work Phone: [facility] 10-21-2023 14:00-0400 Systolic blood pressure 121 mm[Hg] MD Josh Hong Work Phone: [facility] 10-21-2023 10:52-0400 Body height 170.18 cm MD Josh Hong Work Phone: [facility] 10-21-2023 10:52-0400 Body weight 79.37 kg MD Josh Hong Work Phone: [facility] 10-03-2023 09:50-0400 Body height 170.18 cm MD Josh Hong Work Phone: [facility] 10-03-2023 09:50-0400 Body mass index (BMI) [Ratio] 28 kg/m2 MD Josh Hong Work Phone: [facility] 10-03-2023 09:50-0400 Body weight 81.19 kg MD Josh Hong Work Phone: [facility] 10-03-2023 09:50-0400 Diastolic blood pressure 79 mm[Hg] MD Josh Hong Work Phone: [facility] 10-03-2023 09:50-0400 Heart rate 74 /min MD Josh Hong Work Phone: [facility] 10-03-2023 09:50-0400 Systolic blood pressure 128 mm[Hg] MD Josh Hong Work Phone: [facility] Encounters Encounter Date Encounter Type Care Provider Facility Start: 01-08-2024 End: 01-08-2024 ambulatory REID JORGE Not Available Start: 12-26-2023 End: 12-26-2023 ambulatory MD Josh Hong Work Phone: [facility] Work Phone: Start: 12-26-2023 End: 12-26-2023 Departed Referred MD Josh Hong Work Phone: [facility] Start: 12-01-2023 End: 12-01-2023 ambulatory JAVID SHIRLEY Not Available Start: 11-06-2023 End: 11-06-2023 ambulatory JAVID SHIRLEY Not Available Start: 10-21-2023 Non-patient / Non-visit MD Bennie Hong Work Phone: [facility] Work Phone: Start: 10-21-2023 End: 10-21-2023 Admission to same day surgery center MD Josh Hong Work Phone: [facility] Work Phone: Start: 10-21-2023 End: 10-21-2023 ambulatory MD Josh Hong Work Phone: [facility] Work Phone: Start: 10-03-2023 End: 10-03-2023 Patient encounter procedure MD Josh Hong Work Phone: [facility] Work Phone: Start: 05-14-2023 End: 05-14-2023 ambulatory REID JORGE Not Available Start: 10-30-2022 End: 10-31-[address] JOSH HONG . Facility:[facility] Start: 07-04-2022 End: 07-05-[address] JAVID WATSON . Facility:[facility] Start: 06-21-2022 Encounter for preprocedural laboratory examination DR JAVID WATSON . [facility] Start: 06-20-2022 End: 06-21-[address] JAVID WATSON . Facility:[facility] Start: 06-19-2022 Encounter for preprocedural cardiovascular examination DR JAVID WATSON . [facility] Start: 06-19-2022 End: 06-20-[address] JAVID [...] Author Start: 10-21-2023 [facility] Patient Education Gastritis Stomach polyp s [facility] Work Phone: Payers Date Payer Category Payer Self-pay 1970 Unknown [id number] 2.16.84 0.1.251403.3.579.2.593 1970 Unknown [id number] 2.16.84 0.1.381885.3.579.2.593 1970 Unknown [id number] 2.16.84 0.1.442274.3.579.2.593 1969 Unknown [id number] 2.16.84 0.1.472490.3.579.2.593 1969 Unknown [id number] 2.16.84 0.1.424869.3.579.2.593 1969 Unknown [id number] 2.16.84 0.1.298740.3.579.2.593 1969 Unknown [id number] 2.16.84 0.1.319740.3.579.2.593 1969 Unknown [id number] 2.16.84 0.1.822401.3.579.2.593 1969 Unknown [id number] 2.16.84 0.1.609977.3.579.2.593 1969 Unknown [id number] 2.16.84 0.1.282370.3.579.2.593 1969 Unknown [id number] 2.16.84 0.1.779299.3.579.2.593 1969 Unknown [id number] 2.16.84 0.1.573328.3.579.2.1259 1969 Unknown [id number] 2.16.84 0.1.544397.3.579.2.1259 1969 Unknown [id number] 2.16.84 0.1.614510.3.579.2.1259 1969 Unknown [id number] 2.16.840 .1.742017.3.579.2.1259 1959 Unknown [id number] Unknown [id number] 2.16.8 40.1.090943.3.579.2.531 Unknown [id number] 2.16.8 40.1.877806.3.579.2.531 Social History Date Type Detail Facility Start: [facility]23 [facility] Start: 1970 Sex Assigned At Female F [facility] Goals Date Patient Goal Desired Activity /State Procedure note 10-21-2023 Note Date & Type Note Facility 10-21-2023 Procedure note [facility] Procedure note 10-21-2023 Note Date & Type Note Facility 10-21-2023 Procedure note [facility] Clinical Note 06-20-2022 Note Date & Type Note Facility 06-20-2022 Note OPERATIVE NOTE OPERATION DATE: 06/20/2022 PROCEDURE: vNOTES hysterectomy with cystoscopy and bilateral salpingectomy. PREOPERATIVE DIAGNOSIS: Pelvic pressure, menorrhagia, dysmenorrhea, dyspareunia. POSTOPERATIVE DIAGNOSIS: Pelvic pressure, menorrhagia, dysmenorrhea, dyspareunia. ANESTHESIA: General. SURGEON: Javid Watson M.D. INBOUND SALES REPRESENTATIVE: PIYUSH Howell URINE OUTPUT: Yellow and clear. [...] Sponge, lap, needle counts correct x2. [facility] Evaluation note Note Date & Type Note Facility Evaluation note Diagnosis Onset Date Abdominal pain acute Bloating acute GERD (gastroesophageal reflux disease) acute Mucus in stool acute [facility] Work Phone: History and physical note Note Date & Type Note Facility History and physical note Note Date/Time October 21, 2023 12:42pm [facility] [address] [place] [address] Gastroenterology H&P Signed Patient: Eliza Coello MR#: [id number] : 1970 Acct:[id number] Age/Sex: 52 / F Adm Date: 4 Loc: Room: Type: [facility] Attending Dr: Elizabeth Perea DO Copies [...] signed by Elizabeth Perea DO> 10/21/23 1242 [facility] Work Phone: Summary Purpose Family History No Family History Records Found Relationship Condition Age at Onset Recorded Date/T kalin Not Specified Deep vein thrombosis (DVT) Unknown Malignant neoplasm Unknown sister Hyperthyroidism Unknown Supraventricular tachycardia Unknown father Vitiligo Unknown Relationship Condition Age at Onset Recorded Date/T kalin mother Deep vein thrombosis (DVT) Unknown Malignant neoplasm [...] GERD (gastroesophageal reflux disease) Mucus in stool Chief Complaint acid reflux, bloatin g, ab pain, mucus in stool and pain, mucus in stool, gerd, bloating and pain, mucus in stool, gerd, bloating Unknown Reason for Visit Abdominal pain Bloating GERD (gastroesophageal reflux disease) Mucus in stool Additional Source Comments INFORMATION SOURCE (unrecogn ized section and content) DATE CREATED AUTHOR 06/15/2020 [facility] DATE CREATED AUTHOR AUTHOR'S ORGANIZ ATION 11/03/2022 [facility] DATE CREATED AUTHOR AUTHOR'S ORGANIZ ATION 01/05/2024 [facility] DATE CREATED AUTHOR AUTHOR'S ORGANIZ ATION 01/12/2024 [facility] Care Teams (unrecognized sec tion and content) Team Status: Active Member Role Status Dates Josh Hong MD Primary Care Provider Active Team Status: Inactive Member Role Status Lisy Perea DO Attending Provider Active St art: October 03, 2023 End: October 03, 2023 Josh Hong MD Primary Care Provider Active Start: October 03, 2023 End: October 03, 2023 Team Status: Inactive Member Role Status Lisy Hong MD Primary Care Provider Active Start: October 21, 2023 End: October 21, 2023 Elizabeth Perea , Attending Provider Active St art: October 21, 2023 End: October 21, 2023 Team Status: Active Member Role Status Lisy Hong MD Primary Care Provider Active Start: October 21, 2023 Elizabeth Perea , Attending Provider, Other Provider Active Start: October 21, 2023 Team Status: Inactive Member Role Status Lisy Hong MD Primary Care Provider Active Start: December 26, 2023 End: December 26, 2023 Javid Watson DO Attending Provider Active Start : December 26, 2023 End: December 26, 2023 FOR RECORDS PERTAINING TO PATIENTS WHO [...] BE BASED ON THE PRIMARY CLINICAL RECORDS. [facility] [employer] provides no warranty or guarantee of the accuracy or completeness of information in this document.
[2024-03-09] MEDS: LIDOCAINE HCL 20 ML, SODIUM BICARBONATE 2 MEQ INJ (14:30)
--- NOTE | 2024-03-09 14:50 | FL_ITS ---
[address] [address] Patient Name: RENETTA COELLO MRN: [id number] date: 1970 Sex: F Assigned Patient Location: MRI Current Patient Location: MRI Accession/Order Number: [id number] Exam Date: 03/09/2024 13:40 Report Date: 03/09/2024 15:06 At the request of: STEF ROMO Procedure: FL arthrogram hip EXAMINATION: FL arthrogram hip, FL guided needle placement HISTORY: Left hip pain COMPARISON: No relevant comparison available. TECHNIQUE: An arthrogram was performed under fluoroscopic guidance using non-ionic contrast material in the usual sterile manner after obtaining informed consent. Standard level fluoroscopic mode of operation utilized. 48.5 seconds of fluoroscopy. 4.11 mCi FINDINGS: JOINT: Left hip NEEDLE: 25 gauge, 3.5 spinal needle. MEDICATION: 5cc buffered 1% lidocaine for subcutaneous anesthesia 5 mL Omnipaque 240. 1% lidocaine 5 mL, 0.2 mL dotarem. TECHNIQUE: Anterior approach with prior localization of the femoral artery. A single stick was successful in gaining access to the joint space. CLINICAL: 2 out of 10 pain before the injection. 0 out of 10 pain following the injection COMPLICATIONS: None. BONES: Normal. No erosion, osteophyte, fracture, or bony lesion. CARTILAGE: Normal. No visible erosion or interruption. CAPSULE: Extension of contrast beyond the expected location of the joint space suggesting a labral tear HERLINDA-ARTICULAR: Normal. No visible herlinda-articular soft tissue abnormality. LOOSE BODIES: None. OTHER: Negative. PLEASE ALSO SEE THE SEPARATE ARTHROGRAM PROCEDURE REPORT. FL/FL arthrogram hip IMPRESSION: Technically successful left hip diagnostic arthrogram Electronically authenticated by: ROSSANA VELÁSQEUZ Date: 03/09/2024 15:06
--- NOTE | 2024-03-09 14:50 | FL_ITS ---
[address] [address] Patient Name: RENETTA COELLO MRN: [id number] date: 1970 Sex: F Assigned Patient Location: MRI Current Patient Location: MRI Accession/Order Number: [id number] Exam Date: 03/09/2024 13:40 Report Date: 03/09/2024 15:06 At the request of: STEF ROMO Procedure: FL guided needle placement EXAMINATION: FL arthrogram hip, FL guided needle placement HISTORY: Left hip pain COMPARISON: No relevant comparison available. TECHNIQUE: An arthrogram was performed under fluoroscopic guidance using non-ionic contrast material in the usual sterile manner after obtaining informed consent. Standard level fluoroscopic mode of operation utilized. 48.5 seconds of fluoroscopy. 4.11 mCi FINDINGS: JOINT: Left hip NEEDLE: 25 gauge, 3.5 spinal needle. MEDICATION: 5cc buffered 1% lidocaine for subcutaneous anesthesia 5 mL Omnipaque 240. 1% lidocaine 5 mL, 0.2 mL dotarem. TECHNIQUE: Anterior approach with prior localization of the femoral artery. A single stick was successful in gaining access to the joint space. CLINICAL: 2 out of 10 pain before the injection. 0 out of 10 pain following the injection COMPLICATIONS: None. BONES: Normal. No erosion, osteophyte, fracture, or bony lesion. CARTILAGE: Normal. No visible erosion or interruption. CAPSULE: Extension of contrast beyond the expected location of the joint space suggesting a labral tear HERLINDA-ARTICULAR: Normal. No visible herlidna-articular soft tissue abnormality. LOOSE BODIES: None. OTHER: Negative. PLEASE ALSO SEE THE SEPARATE ARTHROGRAM PROCEDURE REPORT. FL/FL guided needle placement IMPRESSION: Technically successful left hip diagnostic arthrogram Electronically authenticated by: ROSSANA VELÁSQUEZ Date: 03/09/2024 15:06
--- NOTE | 2024-03-09 15:03 | SUR.PREOP ---
03/01/24 Pt instructed on procedure, date, time, and prep.
--- NOTE | 2024-03-09 15:12 | SUR.PREOP ---
03/09/24 Pt pain level is a 0/10 for left hip area.
== END 2024-03-09 14:55 | disposition home or self-care (01) ==
LOC: MRI 13:34
PROVIDERS: Radiology Diagnostic Radiology; PCP Family Medicine; Visit Provider Physician Assistant
DX: M25.552 Pain in left hip (principal); M16.12 Unilateral primary osteoarthritis, left hip; S73.192A Other sprain of left hip, initial encounter
CPT/HCPCS: 27093; 73722; 77002; A9575; Q9966

== ENCOUNTER 2024-03-22 13:43 | Outpatient (OUT) | payer OTHER, SELFPAY ==
--- OUTSIDE RECORDS SUMMARY | 2024-03-22 13:53 | XMS_ITS | CCD ---
Author Organization [facility] Care Team Providers Care Tooth Polisher Name Role Phone SHIRLEY ., DR HUA [...] Unavailable SHIRLEY ., DR HUA Admitting Unavailable VIRGIN[place], DR ROSSANA Teague Consulting Unavailable HOY ., [...] Unavailable ANTHONYY ., DR MORENO Admitting Unavailable VIR[place], DR ROSSANA Teague Consulting Unavailable MD Josh Hong Primary Care Provider Ly, DO Elizabeth Perez Attending Provider Shirley, DO Hua Attending Provider Ly, Elizabeth Perez Admitting Unavailable Ly, Elizabeth Perez Attending Unavailable Josh Hong Primary Care Unavailable Javid Watson Admitting Unavailable Javid Watson Attending Unavailable Josh Hong Primary Care Unavailable REID JORGE Attending Unavailable JAVID WATSON Attending Unavailable JAVID WATSON Attending Unavailable REID JORGE Attending Unavailable Allergies Allergy Classification Reported Allergen(s) Allergy Type Date of Onset Reaction(s) Facility (2 sources) Fluconazole Drug Allergy 06-23-2021 [facility] Repository (1 source) levoFLOXacin Drug Allergy [facility] Repository (1 source) levoFLOXacin Drug Allergy 10-21-2023 [facility] Repository Medications Current Medications Medication Drug [...] 2 tablets by mouth once daily Vitamin U18-Tnpzt Acid Active 2 TAB PO Daily October [...] 07-03-2022 Episodic Other aftercare (1 source) Other longterm (current) drug therapy; Translations: [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] Onset: 07-03-2022 Episodic Other aftercare (1 source) 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; Translations: [SENIOR CARE USE ORAL HYPOGLYCEMIC DX] Onset: 07-03-2022 Episodic [...] Test Name Value Interpretation Reference Range Facility [facility] 12-26-2023 L Specimen: [id number] Received: 12/29/23 Status: ANUSHA Collier Num: [id number] Spec Type: Surgical Subm Dr: Javid Watson Tissues: A Fallopian Tube Biopsy (RT TUBE REMNANT) Procedures: HE/2, Gross/Micro L4 Age/ Patient Sex Location Account Attending Physician Eliza Coello 53/F LABELL [id number] Javid Watson SPEC NUM: [id number] RECD: 12/29/23 STATUS: ANUSHA COLLIER NUM: [id number] CECILE: 12/26/[address]: Javid Watson ENTERED: 12/29/[address] [facility] [address]: Glenda,Lab SPEC TYPE: Surgical DEPT: [...] fluid. No normal tubal mucosa is identified. Sales Planner sections are submitted in A1. CPT Codes 94221 Specimen: [id number] Received: 12/29/23 Status: ANUSHA Collier Num: [id number] Spec Type: Surgical Subm Dr: Javid Watson Tissues: A Fallopian Tube Biopsy (RT TUBE REMNANT) Procedures: HE/Gigi, Gross/Micro L4 Patient: Eliza Coello [id number] (Continued) Signed (signature on file) Seth Blanton MD 12/30/23 3507 Normal [facility] Kevin 10-21-2023 L Specimen: [id number] Received: 10/21/23 Status: ANUSHA Collier Num: [id number] Spec Type: Surgical Subm Dr: Elizabeth Perea DO Tissues: A Small Intestine - Biopsy/Polyp (SMALL BOWEL) B GASTRIC FOR HP (GASTRIC HP) C Gastric Biopsy (GASTRIC POLYP) Procedures: HE/6, Gross/Micro L4/3, H PYLORI, IHC First AB Age/ Patient Sex Location Account Attending Physician OumouEliza denny 52/F [id number] Elizabeth Perea DO SPEC NUM: [id number] RECD: 10/21/23 STATUS: ANUSHA COLLIER NUM: [id number] CECILE: 10/21/23- SUBM DR: Elizabeth Perea DO ENTERED: 10/21/[address] [facility] [address]: SPEC TYPE: Surgical DEPT: S [...] tissue fragment, entirely submitted in B1. Specimen: [id number] Received: 10/21/23 Status: ANUSHA Collier Num: [id number] Spec Type: Surgical Subm Dr: Elizabeth Perea DO Tissues: A Small Intestine - Biopsy/Polyp (SMALL BOWEL) B GASTRIC FOR HP (GASTRIC HP) C Gastric Biopsy (GASTRIC POLYP) Procedures: HE/6, Gross/Micro L4/3, H PYLORI, IHC First AB Patient: OumouEliza [id number] (Continued) Specimen: [id number] Received: 10/21/23 (Continued) Gross Description (Continued) Signed (signature on file) Rossana Solares MD 10/22/23 1633 Specimen: [id number] Received: 10/21/23 Status: ANUSHA Collier Num: [id number] Spec Type: Surgical Subm Dr: Elizabeth Perea DO Tissues: A Small Intestine - Biopsy/Polyp (SMALL BOWEL) B GASTRIC FOR HP (GASTRIC HP) C Gastric Biopsy (GASTRIC POLYP) Procedures: HE/6, Gross/Micro L4/3, H PYLORI, IHC First AB Patient: Eliza Coello [id number] (Continued) Specimen: [id number] Received: 10/21/23 (Continued) Gross Description (Continued) C. Further labeled gastric polyp is a 0.4 x 0.2 x 0.1 cm menjivar mucosal tissue fragment, entirely submitted in C1. Clinical history: Rule out celiac, rule out H. pylori. CPT Codes 14610o4, 57897 Specimen: [id number] Received: 10/21/23 Status: ANUSHA Collier Num: [id number] Spec Type: Surgical Subm Dr: Elizabeth Perea, DO Tissues: A Small Intestine - Biopsy/Polyp (SMALL BOWEL) B GASTRIC FOR HP (GASTRIC HP) C Gastric Biopsy (GASTRIC POLYP) Procedures: HE/6, Gross/Micro L4/3, H PYLORI, IHC First AB Patient: OumouEliza Sharonda [id number] (Continued) Signed (signature on file) Rossana Solares MD 10/22/23 1633 Normal [facility] VC VENOUS REFLUX RT [facility] VC VENOUS REFLUX RT [facility] Patient: ROBERT COELLOFLASH Mcdonough. Exam Date: 10/30/2022 : 1970 Gender:F Ordering : DR JOSH HONG . Admission #: [id number] Family : Order #: [id number] CLICK HERE TO VIEW EXAM RADIOLOGY REPORT [...] Compressibility: Normal. Flow: Moderate deep venous reflux. Taxi Proprietor: None. Tech Note: Incompetent varicose vein lateral [...] MD on 10/30/2022 at 12:59 Normal [facility] CBC AUTO DIFFon 07-04-2022 BASO # 0.1 103/ul Normal 0.0-0.1 [facility] Comment on above: Performed By: #### T SH #### [facility] [address] [address] [address] Marlene Blanton Basophils/100 WBC (Bld) 0.6 % Normal 0.2-2.0 [facility] Comment on above: Performed By: #### T SH #### [facility] [address] [address] [address] Marlene Blanton EO # 0.0 103/ul Normal 0.0-0.7 [facility] Comment on above: Performed By: #### T SH #### [facility] [address] [address] [address] Marlene Blanton Eosinophils/100 WBC (Bld) 0.0 % Critically low 0.9-7.0 [facility] Comment on above: Performed By: #### T SH #### [facility] [address] [place] [address] Dr. Marlene Blanton Erythrocyte distribution width (RBC) [Ratio] 13.3 % Normal 11.0-15.0 [facility] Comment on above: Performed By: #### T SH #### [facility] [address] [place] [address] Dr. Marlene Blanton Hematocrit (Bld) [Volume fraction] 42.3 % Normal 36.0-48.0 [facility] Comment on above: Performed By: #### T SH #### [facility] [address] [place] [address] Dr. Marlene Blanton Hemoglobin (Bld) [Mass/Vol] 13.0 g/dL Normal 12.0-16.0 [facility] Comment on above: Performed By: #### T SH #### [facility] [address] [place] [address] Dr. Marlene Blanton IG # 0.04 10e3/ul Critically high 0.00-0.03 [facility] Comment on above: Performed By: #### T SH #### [facility] [address] [place] [address] Dr. Marlene Blanton IG % 0.4 % Normal 0.0-0.5 [facility] Comment on above: Performed By: #### T SH #### [facility] [address] [place] [address] Dr. Marlene Blanton LYMPH # 2.0 103/ul Normal 1.2-3.8 [facility] Comment on above: Performed By: #### T SH #### [facility] [address] [place] [address] Dr. Marlene Blanton Lymphocytes/100 WBC (Bld) 19.0 % Critically low 20.5-60.0 [facility] Comment on above: Performed By: #### T SH #### [facility] [address] [place] [address] Dr. Marlene Blanton MANUAL DIFF REQ NO Normal [facility] Comment on above: Performed By: #### T SH #### [facility] [address] [place] [address] Dr. Marlene Blanton MCH (RBC) [Entitic mass] 29.6 pg Normal 26.7-34.0 [facility] Comment on above: Performed By: #### T SH #### [facility] [address] [place] [address] Dr. Marlene Blanton MCHC (RBC) [Mass/Vol] 30.7 g/dL Normal 29.9-35.2 [facility] Comment on above: Performed By: #### T SH #### [facility] [address] [address] [address] Marlene Blanton MCV (RBC) [Entitic vol] 96.4 fL Normal 81.0-99.0 [facility] Comment on above: Performed By: #### T SH #### [facility] [address] [place] [address] Dr. Marlene Blanton MONO # 0.7 103/ul Normal 0.3-0.8 [facility] Comment on above: Performed By: #### T SH #### [facility] [address] [place] [address] Dr. Marlene Blanton Monocytes/100 WBC (Bld) 6.6 % Normal 1.7-12.0 [facility] Comment on above: Performed By: #### T SH #### [facility] [address] [place] [address] Dr. Marlene Blanton NEUT # 7.7 103/ul Critically high 1.4-6.5 [facility] Comment on above: Performed By: #### T SH #### [facility] [address] [place] [address] Dr. Marlene Blanton Neutrophils/100 WBC (Bld) 73.4 % Normal 43.0-75.0 [facility] Comment on above: Performed By: #### T SH #### [facility] [address] [place] [address] Dr. Marlene Blanton Platelet mean volume (Bld) [Entitic vol] 8.9 fL Critically low 9.5-13.5 [facility] Comment on above: Performed By: #### T SH #### [facility] [address] [place] [address] Dr. Marlene Blanton PLT 288 103/ul Normal 150-450 [facility] Comment on above: Performed By: #### T SH #### [facility] [address] [place] [address] Dr. Marlene Blanton RBC 4.39 106/ul Normal 4.20-5.40 [facility] Comment on above: Performed By: #### T SH #### [facility] [address] [place] [address] Dr. Marlene Blanton WBC 10.5 103/ul Normal 4.0-11.0 [facility] Comment on above: Performed By: #### T SH #### [facility] [address] [place] [address] Dr. Marlene Blanton FREE T4on 07-04-2022 Free T4 [Mass/Vol] 0.98 ng/dL Normal 0.76-1.[address] [facility] Comment on above: Performed By: #### F T4 #### [facility] [address] [place] [address] Dr. Marlene Blanton PROTIMEon 07-04-2022 INR Coag (PPP) [Relative time] 0.95 {INR} Normal [facility] Comment on above: Performed By: #### P T, PTT #### [facility] [address] [place] [address] Dr. Marlene Blanton INR GUIDELINES SEE BELOW Normal [facility] Comment on above: Result Comment: GLEN RED INR: 2.0 - 3.0 CONDITIONS NOT LISTED BELOW 2.5 - 3.5 FOR PROSTHETIC HEART VALVE REPLACEMENT 2.5 - 3.5 RECURRENT THROMBOSIS Performed By: #### P T, PTT #### [facility] [address] [place] [address] Dr. Marlene Blanton PT Coag (PPP) [Time] 10.1 s Normal 9.0-11.6 [facility] Comment on above: Performed By: #### P T, PTT #### [facility] [address] [place] [address] Dr. Marlene Blanton PTTon 07-04-2022 aPTT Coag (Bld) [Time] 27.2 s Normal 22.3-36.2 [facility] Comment on above: Performed By: #### P T, PTT #### [facility] [address] [place] [address] Dr. Marlene Blanton TSHon 07-04-2022 TSH 1.916 uIU/mL Normal 0.358-3.740 [facility] Comment on above: Performed By: #### T SH #### [facility] [address] [place] [address] Dr. Marlene Blanton BUNon 06-21-2022 Urea nitrogen [Mass/Vol] 8.0 mg/dL Normal 7.0-18.0 [facility] Comment on above: Performed By: #### C BC #### [facility] [address] [place] [address] Dr. Marlene Blanton CBC AUTO DIFFon 06-21-2022 BASO # 0.0 103/ul Normal 0.0-0.1 [facility] Comment on above: Performed By: #### T SH #### [facility] [address] [place] [address] Dr. Marlene Blanton Basophils/100 WBC (Bld) 0.2 % Normal 0.2-2.0 [facility] Comment on above: Performed By: #### T SH #### [facility] [address] [place] [address] Dr. Marlene Blanton EO # 0.0 103/ul Normal 0.0-0.7 [facility] Comment on above: Performed By: #### T SH #### [facility] [address] [place] [address] Dr. Marlene Blanton Eosinophils/100 WBC (Bld) 0.1 % Critically low 0.9-7.0 [facility] Comment on above: Performed By: #### T SH #### [facility] [address] [place] [address] Dr. Marlene Blanton Erythrocyte distribution width (RBC) [Ratio] 13.4 % Normal 11.0-15.0 [facility] Comment on above: Performed By: #### T SH #### [facility] [address] [place] [address] Dr. Marlene Blanton Hematocrit (Bld) [Volume fraction] 33.6 % Critically low 36.0-48.0 [facility] Comment on above: Performed By: #### T SH #### [facility] [address] [place] [address] Dr. Marlene Blanton Hemoglobin (Bld) [Mass/Vol] 10.8 g/dL Critically low 12.0-16.0 [facility] Comment on above: Result Comment: post surgery Performed By: #### T SH #### [facility] [address] [place] [address] Dr. Marlene Blanton IG # 0.06 10e3/ul Critically high 0.00-0.03 [facility] Comment on above: Performed By: #### T SH #### [facility] [address] [place] [address] Dr. Marlene Blanton IG % 0.5 % Normal 0.0-0.5 [facility] Comment on above: Performed By: #### T SH #### [facility] [address] [place] [address] Dr. Marlene Blanton LYMPH # 2.0 103/ul Normal 1.2-3.8 [facility] Comment on above: Performed By: #### T SH #### [facility] [address] [place] [address] Dr. Marlene Blanton Lymphocytes/100 WBC (Bld) 16.1 % Critically low 20.5-60.0 [facility] Comment on above: Performed By: #### T SH #### [facility] [address] [place] [address] Dr. Marlene Blanton MANUAL DIFF REQ NO Normal [facility] Comment on above: Performed By: #### T SH #### [facility] [address] [place] [address] Dr. Marlene Blanton MCH (RBC) [Entitic mass] 29.0 pg Normal 26.7-34.0 [facility] Comment on above: Performed By: #### T SH #### [facility] [address] [place] [address] Dr. Marlene Blanton MCHC (RBC) [Mass/Vol] 32.1 g/dL Normal 29.9-35.2 [facility] Comment on above: Performed By: #### T SH #### [facility] [address] [address] [address] Marlene Blanton MCV (RBC) [Entitic vol] 90.1 fL Normal 81.0-99.0 [facility] Comment on above: Performed By: #### T SH #### [facility] [address] [address] [address] Marlene Blanton MONO # 0.7 103/ul Normal 0.3-0.8 [facility] Comment on above: Performed By: #### T SH #### [facility] [address] [place] [address] Dr. Marlene Blanton Monocytes/100 WBC (Bld) 5.3 % Normal 1.7-12.0 [facility] Comment on above: Performed By: #### T SH #### [facility] [address] [place] [address] Dr. Marlene Blanton NEUT # 9.7 103/ul Critically high 1.4-6.5 [facility] Comment on above: Performed By: #### T SH #### [facility] [address] [place] [address] Dr. Marlene Blanton Neutrophils/100 WBC (Bld) 77.8 % Critically high 43.0-75.0 [facility] Comment on above: Performed By: #### T SH #### [facility] [address] [place] [address] Dr. Marlene Blanton Platelet mean volume (Bld) [Entitic vol] 8.5 fL Critically low 9.5-13.5 [facility] Comment on above: Performed By: #### T SH #### [facility] [address] [place] [address] Dr. Marlene Blanton PLT 248 103/ul Normal 150-450 [facility] Comment on above: Performed By: #### T SH #### [facility] [address] [place] [address] Dr. Mralene Blanton RBC 3.73 106/ul Critically low 4.20-5.40 [facility] Comment on above: Performed By: #### T SH #### [facility] [address] [place] [address] Dr. Marlene Blanton WBC 12.4 103/ul Critically high 4.0-11.0 The [facility] Comment on above: Performed By: #### T SH #### [facility] [address] [place] [address] Dr. Marlene Blanton CREATININEon 06-21-2022 Creatinine [Mass/Vol] 0.87 mg/dL Normal 0.55-1.02 [facility] Comment on above: Performed By: #### C BC #### [facility] [address] [place] [address] Dr. Marlene Blanton EGFR-AF [place]ORE[place] >60 Normal >=60 The [facility] Comment on above: Performed By: #### C BC #### [facility] [address] [place] [address] Dr. Marlene Blanton EGFR-NON AF [place] >60 Normal >=60 [facility] Comment on above: Performed By: #### C BC #### [facility] [address] [place] [address] Dr. Marlene Blanton CBC AUTO DIFFon 06-19-2022 BASO # 0.1 103/ul Normal 0.0-0.1 [facility] Comment on above: Performed By: #### C BC #### [facility] [address] [place] [address] Dr. Marlene Blanton Basophils/100 WBC (Bld) 0.5 % Normal 0.2-2.0 [facility] Comment on above: Performed By: #### C BC #### [facility] [address] [place] [address] Dr. Marlene Blanton EO # 0.0 103/ul Normal 0.0-0.7 [facility] Comment on above: Performed By: #### C BC #### [facility] [address] [place] [address] Dr. Marlene Blanton Eosinophils/100 WBC (Bld) 0.1 % Critically low 0.9-7.0 [facility] Comment on above: Performed By: #### C BC #### [facility] [address] [place] [address] Dr. Marlene Blanton Erythrocyte distribution width (RBC) [Ratio] 13.4 % Normal 11.0-15.0 [facility] Comment on above: Performed By: #### C BC #### [facility] [address] [place] [address] Dr. Marlene Blanton Hematocrit (Bld) [Volume fraction] 39.8 % Normal 36.0-48.0 [facility] Comment on above: Performed By: #### C BC #### [facility] [address] [place] [address] Dr. Marlene Blanton Hemoglobin (Bld) [Mass/Vol] 13.2 g/dL Normal 12.0-16.0 [facility] Comment on above: Performed By: #### C BC #### [facility] [address] [place] [address] Dr. Marlene Blanton IG # 0.05 10e3/ul Critically high 0.00-0.03 [facility] Comment on above: Performed By: #### C BC #### [facility] [address] [place] [address] Dr. Marlene Blanton IG % 0.5 % Normal 0.0-0.5 [facility] Comment on above: Performed By: #### C BC #### [facility] [address] [place] [address] Dr. Marlene Blanton LYMPH # 2.4 103/ul Normal 1.2-3.8 [facility] Comment on above: Performed By: #### C BC #### [facility] [address] [place] [address] Dr. Marlene Blanton Lymphocytes/100 WBC (Bld) 24.7 % Normal 20.5-60.0 [facility] Comment on above: Performed By: #### C BC #### [facility] [address] [place] [address] Dr. Marlene Blanton MANUAL DIFF REQ NO Normal [facility] Comment on above: Performed By: #### C BC #### [facility] [address] [place] [address] Dr. Marlene Blanton MCH (RBC) [Entitic mass] 29.7 pg Normal 26.7-34.0 [facility] Comment on above: Performed By: #### C BC #### [facility] [address] [place] [address] Dr. Marlene Blanton MCHC (RBC) [Mass/Vol] 33.2 g/dL Normal 29.9-35.2 [facility] Comment on above: Performed By: #### C BC #### [facility] [address] [place] [address] Dr. Marlene Blanton MCV (RBC) [Entitic vol] 89.4 fL Normal 81.0-99.0 [facility] Comment on above: Performed By: #### C BC #### [facility] [address] [place] [address] Dr. Marlene Blanton MONO # 0.8 103/ul Normal 0.3-0.8 [facility] Comment on above: Performed By: #### C BC #### [facility] [address] [place] [address] Dr. Marlene Blanton Monocytes/100 WBC (Bld) 7.9 % Normal 1.7-12.0 [facility] Comment on above: Performed By: #### C BC #### [facility] [address] [place] [address] Dr. Marlene Blanton NEUT # 6.3 103/ul Normal 1.4-6.5 [facility] Comment on above: Performed By: #### C BC #### [facility] [address] [place] [address] Dr. Marlene Blanton Neutrophils/100 WBC (Bld) 66.3 % Normal 43.0-75.0 [facility] Comment on above: Performed By: #### C BC #### [facility] [address] [place] [address] Dr. Marlene Blanton Platelet mean volume (Bld) [Entitic vol] 8.3 fL Critically low 9.5-13.5 [facility] Comment on above: Performed By: #### C BC #### [facility] [address] [address] [address] Marlene Blanton PLT 300 103/ul Normal 150-450 [facility] Comment on above: Performed By: #### C BC #### [facility] [address] [address] [address] Marlene Blanton RBC 4.45 106/ul Normal 4.20-5.40 [facility] Comment on above: Performed By: #### C BC #### [facility] [address] [address] [address] Marlene Blanton WBC 9.6 103/ul Normal 4.0-11.0 [facility] Comment on above: Performed By: #### C BC #### [facility] [address] [place] [address] Dr. Marlene Blanton PREG QUANT HCGon 06-19-2022 HCG QUANT 1 mIU/mL Normal [facility] Comment on above: Performed By: #### P REGQNT #### [facility] [address] [place] [address] Dr. Marlene Blanton HCG RANGE SEE BELOW Normal [facility] Comment on above: Result Comment: 5-50 0.2-1 WEEK 50-500 1-2 WEEKS 100-5,000 2-3 WEEKS 500-10,000 3-4 WEEKS 1,000-50,000 4-5 WEEKS 10,000-100,000 5-6 WEEKS 15,000-200,000 6-8 WEEKS 10,000-100,000 2-3 MONTHS Performed By: #### P REGQNT #### [facility] [address] [address] [address] Marlene Blanton TYPE AND SCREENon 06-19-2022 TYPE AND SCREEN Negative Normal [facility] Comment on above: Performed By: #### C BC #### [facility] [address] [place] [address] Dr. Marlene Blanton ASYMPTOMATIC COVID-19 ANTIGE Non 05-28-2022 EUA Statement SEE BELOW Normal [facility] Comment on above: Result Comment: This [...] sooner. Performed By: #### C BC #### [facility] [address] [place] [address] Dr. Marlene Blanton SARS-CoV-2 (COVID-19) RNA AUSTIN+probe Ql (Unsp spec) Positive Critically abnormal NEGATIVE [facility] Comment on above: Result Comment: SARS -CoV-2 antigen present; does not rule out coinfection with other pathogens. Performed By: #### C BC #### [facility] [address] [address] [address] Marlene Blanton [facility]24 SARS-CoV-2 (COVID-19) RNA AUSTIN+probe Ql (Unsp spec) Detected Critically abnormal NOT DETECTED [facility] Comment on above: Result Comment: This test is not yet approved or cleared by the [place] FDA. When there are no FDA-approved or cleared tests available, and other criteria are met, FDA can make tests available under an emergency access mechanism called an Emergency Use Authorization (EUA). The EUA for this test is supported by the [place] of Health and Human Service's declaration that [...] used). Performed By: #### C VDTBH #### [facility] [address] [place] [address] Dr. Marlene Blanton PAP ACOG PANEL 2: 30 to 65on 05-15-2022 . . Normal [facility] Comment on above: Result Comment: Perf ormed at: WB Performed By: #### [id number] #### [facility] [address] [place] [address] Dr. Marlene Blanton Age Gdln ACOG Testing 30-65 Normal [facility] Comment on above: Performed By: #### [id number] #### [facility] [address] [place] [address] Dr. Marlene Blanton DIAGNOSIS: Comment Normal [facility] Comment on above: Result Comment: NEGA TIVE FOR INTRAEPITHELIAL LESION OR MALIGNANCY. FUNGAL ORGANISMS MORPHOLOGICALLY CONSISTENT WITH BAILEY SPECIES ARE PRESENT. Performed at: WB Performed By: #### [id number] #### [facility] [address] [place] [address] Dr. Marlene Blanton HPV Aptima Negative Normal Negative [facility] Comment on above: Result Comment: This nucleic acid amplification test detects fourteen high-risk HPV types (16,18,31,33,35,39,45,51,52,56,58,59,66,68) without differentiation. Performed at: =G Performed By: #### [id number] #### [facility] [address] [place] [address] Dr. Marlene Blanton HPV Genotype Reflex Comment Normal [facility] Comment on above: Result Comment: Crit eria not met, HPV Genotype not performed. Performed at: WB Performed By: #### [id number] #### [facility] [address] [place] [address] Dr. Marlene Blanton Methodology: Comment Normal [facility] Comment on above: Result Comment: This liquid based ThinPrep(R) pap test was screened with the use of an image guided system. Performed at: WB Performed By: #### [id number] #### [facility] [address] [place] [address] Dr. Marlene Blanton Note: Comment Normal [facility] Comment on above: Result Comment: The Pap smear is a screening test designed to aid in the detection of premalignant and malignant conditions of the uterine cervix. It is not a diagnostic procedure and should not be used as the sole means of detecting cervical cancer. Both false-positive and false-negative reports do occur. . Performed at: WB Performed By: #### [id number] #### [facility] [address] [address] [address] 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 Marlene Blanton Specimen adequacy: Comment Normal [facility] Comment on above: Result Comment: Sati sfactory for evaluation. No endocervical component is identified. Performed at: WB Performed By: #### [id number] #### [facility] [address] [address] [address] Marlene Blanton MG MAMM SCREEN 3D JENNIFER CADon 05-14-2022 MG MAMM SCREEN 3D JENNIFER CAD Patient: ELIZA COELLO Exam Date: 05/14/2022 : 1970 Gender:F Ordering : DR JAVID WATSON . Admission #: [id number] Family : DR JOSH HONG . Order #: [id number] CLICK HERE TO VIEW EXAM RADIOLOGY REPORT [...] melanoma cancer at age 19. LOCATION: [facility] BREAST COMPOSITION: Heterogeneously dense,which may obscure [...] M.D. on 05/14/2022 at 14:48 Normal [facility] US PELVIS AND TRANSVAGon US PELVIS [...] ROSSANA VELÁSQUEZ Date: 2022-05-09 13:04 Normal [facility] CBC AUTO DIFFon 05-08-2022 BASO # 0.1 103/ul Normal 0.0-0.1 [facility] Comment on above: Performed By: #### T SH #### [facility] [address] [place] [address] Dr. Marlene Blanton Basophils/100 WBC (Bld) 0.7 % Normal 0.2-2.0 [facility] Comment on above: Performed By: #### T SH #### [facility] [address] [place] [address] Dr. Marlene Blanton EO # 0.0 103/ul Normal 0.0-0.7 [facility] Comment on above: Performed By: #### T SH #### [facility] [address] [place] [address] Dr. Marlene Blanton Eosinophils/100 WBC (Bld) 0.0 % Critically low 0.9-7.0 [facility] Comment on above: Performed By: #### T SH #### [facility] [address] [place] [address] Dr. Marlene Blanton Erythrocyte distribution width (RBC) [Ratio] 13.4 % Normal 11.0-15.0 [facility] Comment on above: Performed By: #### T SH #### [facility] [address] [place] [address] Dr. Marlene Blanton Hematocrit (Bld) [Volume fraction] 42.1 % Normal 36.0-48.0 [facility] Comment on above: Performed By: #### T SH #### [facility] [address] [place] [address] Dr. Marlene Blanton Hemoglobin (Bld) [Mass/Vol] 13.8 g/dL Normal 12.0-16.0 [facility] Comment on above: Performed By: #### T SH #### [facility] [address] [place] [address] Dr. Marlene Blanton IG # 0.04 10e3/ul Critically high 0.00-0.03 [facility] Comment on above: Performed By: #### T SH #### [facility] [address] [place] [address] Dr. Marlene Blanton IG % 0.4 % Normal 0.0-0.5 [facility] Comment on above: Performed By: #### T SH #### [facility] [address] [place] [address] Dr. Marlene Blanton LYMPH # 2.1 103/ul Normal 1.2-3.8 [facility] Comment on above: Performed By: #### T SH #### [facility] [address] [place] [address] Dr. Marlene Blanton Lymphocytes/100 WBC (Bld) 23.3 % Normal 20.5-60.0 [facility] Comment on above: Performed By: #### T SH #### [facility] [address] [place] [address] Dr. Marlene Blanton MANUAL DIFF REQ NO Normal [facility] Comment on above: Performed By: #### T SH #### [facility] [address] [place] [address] Dr. Marlene Blanton MCH (RBC) [Entitic mass] 29.3 pg Normal 26.7-34.0 [facility] Comment on above: Performed By: #### T SH #### [facility] [address] [place] [address] Dr. Marlene Blanton MCHC (RBC) [Mass/Vol] 32.8 g/dL Normal 29.9-35.2 [facility] Comment on above: Performed By: #### T SH #### [facility] [address] [place] [address] Dr. Marlene Blanton MCV (RBC) [Entitic vol] 89.4 fL Normal 81.0-99.0 [facility] Comment on above: Performed By: #### T SH #### [facility] [address] [place] [address] Dr. Marlene Blanton MONO # 0.7 103/ul Normal 0.3-0.8 [facility] Comment on above: Performed By: #### T SH #### [facility] [address] [place] [address] Dr. Marlene Blanton Monocytes/100 WBC (Bld) 7.3 % Normal 1.7-12.0 [facility] Comment on above: Performed By: #### T SH #### [facility] [address] [place] [address] Dr. Marlene Blanton NEUT # 6.1 103/ul Normal 1.4-6.5 [facility] Comment on above: Performed By: #### T SH #### [facility] [address] [place] [address] Dr. Marlene Blanton Neutrophils/100 WBC (Bld) 68.3 % Normal 43.0-75.0 [facility] Comment on above: Performed By: #### T SH #### [facility] [address] [place] [address] Dr. Marlene Blanton Platelet mean volume (Bld) [Entitic vol] 8.8 fL Critically low 9.5-13.5 [facility] Comment on above: Performed By: #### T SH #### [facility] [address] [place] [address] Dr. Marlene Blanton PLT 310 103/ul Normal 150-450 [facility] Comment on above: Performed By: #### T SH #### [facility] [address] [place] [address] Dr. Marlene Blanton RBC 4.71 106/ul Normal 4.20-5.40 [facility] Comment on above: Performed By: #### T SH #### [facility] [address] [place] [address] Dr. Marlene Blanton WBC 9.0 103/ul Normal 4.0-11.0 [facility] Comment on above: Performed By: #### T SH #### [facility] [address] [place] [address] Dr. Marlene Blanton FREE T4on 05-08-2022 Free T4 [Mass/Vol] 1.09 ng/dL Normal 0.76-1.46 [facility] Comment on above: Performed By: #### T SH #### [facility] [address] [place] [address] Dr. Marlene Blanton PREG QUANT HCGon 05-08-2022 HCG QUANT 1 mIU/mL Normal [facility] Comment on above: Performed By: #### T SH, PREGQNT #### [facility] [address] [place] [address] Dr. Marlene Blanton HCG RANGE SEE BELOW Normal [facility] Comment on above: Result Comment: 5-50 0.2-1 WEEK 50-500 1-2 WEEKS 100-5,000 2-3 WEEKS 500-10,000 3-4 WEEKS 1,000-50,000 4-5 WEEKS 10,000-100,000 5-6 WEEKS 15,000-200,000 6-8 WEEKS 10,000-100,000 2-3 MONTHS Performed By: #### T SH, PREGQNT #### [facility] [address] [place] [address] Dr. Marlene Blanton PROTIMEon 05-08-2022 INR Coag (PPP) [Relative time] 0.95 {INR} Normal [facility] Comment on above: Performed By: #### C BC #### [facility] [address] [place] [address] Dr. Marlene Blanton INR GUIDELINES SEE BELOW Normal [facility] Comment on above: Result Comment: GLEN RED INR: 2.0 - 3.0 CONDITIONS NOT LISTED BELOW 2.5 - 3.5 FOR PROSTHETIC HEART VALVE REPLACEMENT 2.5 - 3.5 RECURRENT THROMBOSIS Performed By: #### C BC #### [facility] [address] [place] [address] Dr. Marlene Blanton PT Coag (PPP) [Time] 10.3 s Normal 9.0-11.6 [facility] Comment on above: Performed By: #### C BC #### [facility] [address] [place] [address] Dr. Marlene Blanton PTTon 05-08-2022 aPTT Coag (Bld) [Time] 26.3 s Normal 22.3-36.2 [facility] Comment on above: Performed By: #### C BC #### [facility] [address] [place] [address] Dr. Marlene Blanton TSHon 05-08-2022 TSH 4.001 uIU/mL Critically high 0.358-3.[address] [facility] Comment on above: Performed By: #### T SH, PREGQNT #### [facility] [address] [place] [address] Dr. Marlene Blanton Reminderson 06-01-2020 Reminders - From: Jesenia Price LPN To: GSN - Clinical; Sent: 06/01/2020 08:20:44 EST Show up: 04/24/2030 09:00:00 EDT Subject: colonoscopy recall Due Date/Time: 05/24/2030 09:00:00 EST Reminder/Recall Patient is due for screening colonoscopy 05/24/2030. Normal [facility] Ambulatory Clinical Summaryo n 05-31-2020 Ambulatory Clinical Summary {[id number] Normal [facility] General Surgery Office/Clini c Noteon [...] Salguero Only if needed [address] [place] [address]- Additional Instructions: Problem List/Past Medical History Ongoing [...] Primary malignant neoplasm of female breast: Mother. [facility] Comment on above: Result Comment: Elec tronically Signed By: GABRIEL LAUREN, Corby Salguero\.layla\Date and Time Signed: 05/31/20 16:31 EST Pathology Noteon 05-29-2020 Pathology Note [id number]#1.00C D:127 Normal [facility] Outside Colonoscopyon 2019 Outside Colonoscopy [id number] D:127 [facility] Lab Reportson 05-25-2020 Lab Reports [id number] D:127 Normal [facility] Provider Letter FTon 05-12 Provider Letter [facility] Josh Hong, [address] [place] [address] [place] [address] Re: ELIZA CEOLLO Date of : 1970 Thank you for your referral of Eliza Coello who was seen on consultation on May 09, 2020, for rectal bleeding, abdominal pain with bowel movements. A colonoscopy is ordered for further evaluation. I will be happy to follow Eliza. Sincerely, Corby Buitrago MD General Surgery [facility] Ambulatory Clinical Summaryo n 05-09-2020 Ambulatory Clinical Summary {[id number] Normal [facility] General Surgery Office/Clini c Noteon [...] available Patient Education Exercise to Stay Healthy, [id number] Problem List/Past Medical History Ongoing Abdominal pain, [...] malignant neoplasm of female breast: Mother. Normal [facility] Comment on above: Result Comment: Elec tronically [...] Document Reviewed: 07/12/2011 ExitCare? Patient Information ?2013 [employer]. Normal [facility] Physician Referralon 020 Physician Referral [id number] D:127 Normal [facility] Vital Signs Date Time Vital Sign Value Performing Clinician Ismael kunz 10-21-2023 14:00-0400 Diastolic blood pressure 72 mm[Hg] MD Josh Hong Work Phone: [facility] 10-21-2023 14:00-0400 Heart rate 77 /min MD Josh Hong Work Phone: [facility] 10-21-2023 14:00-0400 Respiratory rate 16 /min MD Josh Hong Work Phone: [facility] 10-21-2023 14:00-0400 SaO2% (BldA) [Mass fraction] 97 % MD Josh Hong Work Phone: [facility] 10-21-2023 14:00-0400 Systolic blood pressure 121 mm[Hg] MD Josh Hong Work Phone: [facility] 10-21-2023 10:52-0400 Body height 170.18 cm MD Josh Hong Work Phone: [facility] 10-21-2023 10:52-0400 Body weight 79.37 kg MD Johs Hong Work Phone: [facility] 10-03-2023 09:50-0400 Body height 170.18 cm MD Josh Hong Work Phone: [facility] 10-03-2023 09:50-0400 Body mass index (BMI) [Ratio] 28 kg/m2 MD Josh Hong Work Phone: [facility] 10-03-2023 09:50-0400 Body weight 81.19 kg MD Josh Hong Work Phone: [facility] 10-03-2023 09:50-0400 Diastolic blood pressure 79 mm[Hg] MD Josh Hong Work Phone: [facility] 10-03-2023 09:50-0400 Heart rate 74 /min MD Josh Hong Work Phone: [facility] 10-03-2023 09:50-0400 Systolic blood pressure 128 mm[Hg] MD Josh Hong Work Phone: [facility] Encounters Encounter Date Encounter Type Care Provider Facility Start: 01-08-2024 End: 01-08-2024 ambulatory REID JORGE Not Available Start: 12-26-2023 End: 12-26-2023 ambulatory MD Josh Hong Work Phone: [facility] Work Phone: Start: 12-26-2023 End: 12-26-2023 Departed Referred MD Josh Hogn Work Phone: [facility] Start: 12-01-2023 End: 12-01-2023 ambulatory JAVID SHIRLEY Not Available Start: 11-06-2023 End: 11-06-2023 ambulatory JAVID SHIRLEY Not Available Start: 10-21-2023 Non-patient / Non-visit MD Bennie Hong Work Phone: [facility] Work Phone: Start: 10-21-2023 End: 10-21-2023 Admission to same day surgery center MD Josh Hong Work Phone: [facility] Work Phone: Start: 10-21-2023 End: 10-21-2023 ambulatory MD Josh Hong Work Phone: [facility] Work Phone: Start: 10-03-2023 End: 10-03-2023 Patient encounter procedure MD Josh Hong Work Phone: [facility] Work Phone: Start: 05-14-2023 End: 05-14-2023 ambulatory REID JORGE Not Available Start: 10-30-2022 End: 10-31-[address] JOSH HONG . Facility:[facility] Start: 07-04-2022 End: 07-05-[address] JAVID WATSON . Facility:[facility] Start: 06-21-2022 Encounter for preprocedural laboratory examination DR JAVID WATSON . [facility] Start: 06-20-2022 End: 06-21-[address] JAVID WATSON . Facility:[facility] Start: 06-19-2022 Encounter for preprocedural cardiovascular examination DR JAVID WATSON . [facility] Start: 06-19-2022 End: 06-20-[address] [...] Date Care Activity Detail Author Start: 10-21-2023 [facility] Patient Education Gastritis Stomach polyp s [facility] Work Phone: Payers Date Payer Category Payer Self-pay 1970 Unknown [id number] 2.16.84 [id number] 1970 Unknown [id number] 2.16.84 [id number] 1970 Unknown [id number] 2.16.84 0.1.847582.3.579.2.593 1970 Unknown [id number] 2.16.84 0.1.492805.3.579.2.593 1970 Unknown [id number] 2.16.84 0.1.456920.3.579.2.593 1970 Unknown [id number] 2.16.84 0.1.109277.3.579.2.593 1970 Unknown [id number] 2.16.84 0.1.332100.3.579.2.593 1970 Unknown [id number] 2.16.84 0.1.579022.3.579.2.593 1970 Unknown [id number] 2.16.84 0.1.121698.3.579.2.593 1970 Unknown [id number] 2.16.84 0.1.918946.3.579.2.593 1970 Unknown [id number] 2.16.84 0.1.450556.3.579.2.593 1970 Unknown [id number] 2.16.84 0.1.099947.3.579.2.1259 1970 Unknown [id number] 2.16.84 0.1.271851.3.579.2.1259 1970 Unknown [id number] 2.16.84 0.1.084006.3.579.2.1259 1970 Unknown [id number] 2.16.840 .1.396244.3.579.2.1259 1959 Unknown [id number] Unknown [id number] 2.16.8 40.1.116495.3.579.2.531 Unknown [id number] 2.16.8 40.1.830223.3.579.2.531 Social History Date Type Detail Facility Start: [facility] Start: 1970 Sex Assigned At Female F [facility] Goals Date Patient Goal Desired Activity /State Procedure note 10-21-2023 Note Date & Type Note Facility 10-21-2023 Procedure note [facility] Procedure note 10-21-2023 Note Date & Type Note Facility 10-21-2023 Procedure note [facility] Clinical Note 06-20-2022 Note Date & Type Note Facility 06-20-2022 Note OPERATIVE NOTE OPERATION DATE: 06/20/2022 PROCEDURE: vNOTES hysterectomy with cystoscopy and bilateral salpingectomy. PREOPERATIVE DIAGNOSIS: Pelvic pressure, menorrhagia, dysmenorrhea, dyspareunia. POSTOPERATIVE DIAGNOSIS: Pelvic pressure, menorrhagia, dysmenorrhea, dyspareunia. ANESTHESIA: General. SURGEON: Javid Watson M.D. BARGE MASTER: PIYUSH Howell URINE OUTPUT: Yellow and clear. [...] Sponge, lap, needle counts correct x2. [facility] Evaluation note Note Date & Type Note Facility Evaluation note Diagnosis Onset Date Abdominal pain acute Bloating acute GERD (gastroesophageal reflux disease) acute Mucus in stool acute [facility] Work Phone: History and physical note Note Date & Type Note Facility History and physical note Note Date/Time October 21, 2023 12:42pm [facility] [address] [place] [address] Gastroenterology H&P Signed Patient: Eliza Coello MR#: [id number] : 1970 Acct:[id number] Age/Sex: 52 / F Adm Date: 4 Loc: Room: Type: [facility] Attending Dr: Elizabeth Perea DO [...] signed by Elizabeth Perea DO> 10/21/23 1242 [facility] Work Phone: Summary Purpose Family History [...] section and content) DATE CREATED AUTHOR 06/15/2020 [facility] DATE CREATED AUTHOR AUTHOR'S ORGANIZ ATION 11/03/2022 [facility] DATE CREATED AUTHOR AUTHOR'S ORGANIZ ATION 01/05/2024 [facility] DATE CREATED AUTHOR AUTHOR'S ORGANIZ ATION 01/12/2024 [facility] Care Teams (unrecognized sec tion and content) [...] BE BASED ON THE PRIMARY CLINICAL RECORDS. [facility] [employer] provides no warranty or guarantee of the accuracy or completeness of information in this document.
--- NOTE | 2024-03-22 14:37 | CT_ITS ---
[address] [address] Patient Name: RENETTA COELLO MRN: [id number] date: 1970 Sex: F Assigned Patient Location: CT Current Patient Location: Accession/Order Number: [id number] Exam Date: 03/22/2024 16:30 Report Date: 03/23/2024 04:59 At the request of: SURINDER BLOCK Procedure: CT abdomen pelvis w con EXAMINATION: CT abdomen pelvis w con HISTORY: Diarrhea, Abdominal Pain ; right lower quadrant pain before and with bowel movement COMPARISON: CT abdomen pelvis 07/14/2020 TECHNIQUE: Axial, Coronal, and Sagittal images were obtained without and/or with IV contrast as indicated by examination type. Dose reduction techniques were achieved by using automated exposure control and/or adjustment of mA and/or kV according to patient size and/or use of iterative reconstruction technique. FINDINGS: LUNG BASES: No visible pulmonary or pleural disease. LIVER: Stable posterior right hepatic lobe cysts. No enlargement, atrophy, suspicious density, or significant focal lesion. BILIARY: Cholecystectomy. PANCREAS: No lesion, fluid collection, or abnormal duct dilatation. SPLEEN: No enlargement or focal lesion. ADRENALS: No mass or enlargement. KIDNEYS: No mass, obstruction, or calcification. BOWEL/MESENTERY: No visible mass, obstruction, or bowel wall thickening. AORTA/VASCULAR: No aneurysm or dissection. RETROPERITONEUM: No mass or adenopathy. LYMPH NODES: No adenopathy. URINARY BLADDER: No visible focal wall thickening, lesion, or calculus. PELVIC ORGANS: 2.8 cm cyst within left ovary. No visible mass. Pelvic organs appropriate for patient age. ABDOMINAL WALL: No mass or hernia. BONES: No bony lesion or fracture. OTHER: Negative. CT/CT abdomen pelvis w con IMPRESSION: 1. Unremarkable small bowel and colon; minimal diverticular disease. 2. No acute or suspicious findings to account for patient's symptoms. 3. Left ovary contains a 2.8 cm benign-appearing cyst. Electronically authenticated by: LAWRENCE HERNDON Date: 03/23/2024 04:59
== END 2024-03-22 13:44 | disposition home or self-care (01) ==
LOC: CT 13:43
PROVIDERS: PCP Family Medicine; Visit Provider Internal Medicine Gastroenterology
DX: R19.7 Diarrhea, unspecified (principal); R10.9 Unspecified abdominal pain; R19.5 Other fecal abnormalities; N83.292 Other ovarian cyst, left side
CPT/HCPCS: 74177; 87177; 87209; Q9967

== ENCOUNTER 2024-04-13 15:32 | Outpatient (OUT) | payer OTHER, SELFPAY ==
--- NOTE | 2024-04-13 15:34 | US_ITS ---
The [address] [address] Patient Name: RENETTA COELLO MRN: [id number] date: 1970 Sex: F Assigned Patient Location: Current Patient Location: Accession/Order Number: [id number] Exam Date: 04/13/2024 15:38 Report Date: 04/14/2024 06:28 At the request of: JAVID SPRAGUE Procedure: US pelvis w/ transvaginal EXAMINATION: US pelvis w/ transvaginal HISTORY: Adnexal Cyst ; left ovarian cyst COMPARISON: Ultrasound pelvis 11/01/2023, CT abdomen pelvis 03/22/2024 TECHNIQUE: Transabdominal and/or transvaginal sonographic examination was performed as indicated by examination type. FINDINGS: UTERUS: Hysterectomy. RIGHT OVARY: Not seen. LEFT OVARY: Contains a 2.6 cm cyst. Duplex Doppler demonstrates normal waveform and flow; resistive index 0.6. Ovary size: 4.2 x 2.3 x 3.8 cm CUL-DE-SAC: Unremarkable. No significant free fluid. BLADDER: Unremarkable. OTHER: None. US/US pelvis w/ transvaginal IMPRESSION: 1. Within the left ovary is a 2.6 cm benign-appearing cyst. This is significantly smaller than seen on 11/01/2023 and may represent a resolving cyst or a different cyst than previously seen. Consider follow-up imaging in 6 weeks to document resolution. 2. Prior hysterectomy. Electronically authenticated by: LAWRENCE HERNDON Date: 04/14/2024 06:28
--- OUTSIDE RECORDS SUMMARY | 2024-04-13 15:35 | XMS_ITS | CCD ---
Author Organization [facility] Care Team Providers Care Security System Sales Consultant Name Role Phone SHIRLEY ., DR HUA [...] Unavailable SHIRLEY ., DR HUA Admitting Unavailable MIAMI, DR ROSSANA Teague Consulting Unavailable HOY ., [...] Unavailable ANTHONYY ., DR MORENO Admitting Unavailable MIAMI, DR ROSSANA Teague Consulting Unavailable MD Josh Hong Primary Care Provider Ly, DO Elizabeth Perez Attending Provider [phone] Shirlye, DO Hua Attending Provider Ly, Elizabeth Perez [...] (2 sources) Fluconazole Drug Allergy 06-23-[address] [facility] Repository (1 source) levoFLOXacin Drug Allergy [facility] Repository (1 source) levoFLOXacin Drug Allergy 10-21-2023 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; Translations: [BENCH TOOL MAKER USE ORAL HYPOGLYCEMIC DX] Onset: 07-03-2022 Episodic [...] Test Name Value Interpretation Reference Range Facility [facility] 12-26-2023 L Specimen: [id number] Received: 12/29/23 Status: ANUSHA Collier Num: [id number] Spec Type: Surgical Subm Dr: Javid Watson Tissues: A Fallopian Tube Biopsy (RT TUBE REMNANT) Procedures: HE/2, Gross/Micro L4 Age/ Patient Sex Location Account Attending Physician Eliza Coello 53/F LABELL [id number] Javid Watson SPEC NUM: [id number] RECD: 12/29/23 STATUS: ANUSHA COLLIER NUM: [id number] CECILE: 12/26/[address]: Javid Watson ENTERED: 12/29/[address] [facility] [address]: Glenda,Lab SPEC TYPE: Surgical DEPT: [...] fluid. No normal tubal mucosa is identified. Industrial Technologist sections are submitted in A1. CPT Codes 58243 Specimen: [id number] Received: 12/29/23 Status: ANUSHA Collier Num: [id number] Spec Type: Surgical Subm Dr: Javid Watson Tissues: A Fallopian Tube Biopsy (RT TUBE REMNANT) Procedures: HE/Gigi, Gross/Micro L4 Patient: Eliza Coello [id number] (Continued) Signed (signature on file) Seth Blanton MD 12/30/23 0144 Normal [facility] Kevin 10-21-2023 L Specimen: [id number] Received: 10/21/23 Status: ANUSHA Collier Num: [id number] Spec Type: Surgical Subm Dr: Elizabeth Perea DO Tissues: A Small Intestine - Biopsy/Polyp (SMALL BOWEL) B GASTRIC FOR HP (GASTRIC HP) C Gastric Biopsy (GASTRIC POLYP) Procedures: HE/6, Gross/Micro L4/3, H PYLORI, IHC First AB Age/ Patient Sex Location Account Attending Physician OumouEliza denny 52/F [id number] Elizabeth Perea DO SPEC NUM: [id number] RECD: 10/21/23 STATUS: ANUSHA COLLIER NUM: [id number] CECILE: 10/21/23- SUBM DR: Elizabeth Perea DO ENTERED: 10/21/[address] [facility] [address]: SPEC TYPE: Surgical DEPT: S [...] tissue fragment, entirely submitted in B1. Specimen: [id number] Received: 10/21/23 Status: ANUSHA Collier Num: [id number] Spec Type: Surgical Subm Dr: Elizabeth Perea DO Tissues: A Small Intestine - Biopsy/Polyp (SMALL BOWEL) B GASTRIC FOR HP (GASTRIC HP) C Gastric Biopsy (GASTRIC POLYP) Procedures: HE/6, Gross/Micro L4/3, H PYLORI, IHC First AB Patient: OumouEliza [id number] (Continued) Specimen: [id number] Received: 10/21/23 (Continued) Gross Description (Continued) Signed (signature on file) Rossana Solares MD 10/22/23 1633 Specimen: [id number] Received: 10/21/23 Status: ANUSHA Collier Num: [id number] Spec Type: Surgical Subm Dr: Elizabeth Perea DO Tissues: A Small Intestine - Biopsy/Polyp (SMALL BOWEL) B GASTRIC FOR HP (GASTRIC HP) C Gastric Biopsy (GASTRIC POLYP) Procedures: HE/6, Gross/Micro L4/3, H PYLORI, IHC First AB Patient: Eliza Coello [id number] (Continued) Specimen: [id number] Received: 10/21/23 (Continued) Gross Description (Continued) C. Further labeled gastric polyp is a 0.4 x 0.2 x 0.1 cm menjivar mucosal tissue fragment, entirely submitted in C1. Clinical history: Rule out celiac, rule out H. pylori. CPT Codes 84585m7, 39148 Specimen: [id number] Received: 10/21/23 Status: ANUSHA Collier Num: [id number] Spec Type: Surgical Subm Dr: Elizabeth Perea, DO Tissues: A Small Intestine - Biopsy/Polyp (SMALL BOWEL) B GASTRIC FOR HP (GASTRIC HP) C Gastric Biopsy (GASTRIC POLYP) Procedures: HE/6, Gross/Micro L4/3, H PYLORI, IHC First AB Patient: OumouEliza Sharonda [id number] (Continued) Signed (signature on file) Rossana Solares MD 10/22/23 1633 Normal [facility] VC VENOUS REFLUX RT [facility] VC VENOUS REFLUX RT [facility] Patient: ROBERT COELLOFLASH Mcdonough. Exam Date: 10/30/2022 : 1970 Gender:F Ordering : DR JOSH HONG . Admission #: [id number] Family : Order #: [id number] CLICK HERE TO VIEW EXAM RADIOLOGY REPORT [...] Compressibility: Normal. Flow: Moderate deep venous reflux. Tool Chaser: None. Tech Note: Incompetent varicose vein lateral [...] MD on 10/30/2022 at 12:[address] [facility] CBC AUTO DIFFon 07-04-2022 BASO # 0.1 103/ul Normal 0.0-0.[address] [facility] Comment on above: Performed By: #### T SH #### [facility] [address] [address] [address] Marlene Blanton Basophils/100 WBC (Bld) 0.6 % Normal 0.2-2.[address] [facility] Comment on above: Performed By: #### T SH #### [facility] [address] [address] [address] Marlene Blanton EO # 0.0 103/ul Normal 0.0-0.[address] [facility] Comment on above: Performed By: #### T SH #### [facility] [address] [address] [address] Marlene Blanton Eosinophils/100 WBC (Bld) 0.0 % Critically low 0.9-7.0 [facility] Comment on above: Performed By: #### T SH #### [facility] [address] [place] [address] Dr. Marlene Blanton Erythrocyte distribution width (RBC) [Ratio] 13.3 % Normal 11.0-15.0 [facility] Comment on above: Performed By: #### T SH #### [facility] [address] [place] [address] Dr. Marlene Blanton Hematocrit (Bld) [Volume fraction] 42.3 % Normal 36.0-48.0 [facility] Comment on above: Performed By: #### T SH #### [facility] [address] [place] [address] Dr. Marlene Blanton Hemoglobin (Bld) [Mass/Vol] 13.0 g/dL Normal 12.0-16.0 [facility] Comment on above: Performed By: #### T SH #### [facility] [address] [place] [address] Dr. Marlene Blanton IG # 0.04 10e3/ul Critically high 0.00-0.03 [facility] Comment on above: Performed By: #### T SH #### [facility] [address] [place] [address] Dr. Marlene Blanton IG % 0.4 % Normal 0.0-0.5 [facility] Comment on above: Performed By: #### T SH #### [facility] [address] [place] [address] Dr. Marlene Blanton LYMPH # 2.0 103/ul Normal 1.2-3.8 [facility] Comment on above: Performed By: #### T SH #### [facility] [address] [place] [address] Dr. Marlene Blanton Lymphocytes/100 WBC (Bld) 19.0 % Critically low 20.5-60.[address] [facility] Comment on above: Performed By: #### T SH #### [facility] [address] [place] [address] Dr. Marlene Blanton MANUAL DIFF REQ NO Normal [facility] Comment on above: Performed By: #### T SH #### [facility] [address] [place] [address] Dr. Marlene Blanton MCH (RBC) [Entitic mass] 29.6 pg Normal 26.7-34.0 [facility] Comment on above: Performed By: #### T SH #### [facility] [address] [place] [address] Dr. Marlene Blanton MCHC (RBC) [Mass/Vol] 30.7 g/dL Normal 29.9-35.2 [facility] Comment on above: Performed By: #### T SH #### [facility] [address] [address] [address] Marlene Blanton MCV (RBC) [Entitic vol] 96.4 fL Normal 81.0-99.0 [facility] Comment on above: Performed By: #### T SH #### [facility] [address] [place] [address] Dr. Marlene Blanton MONO # 0.7 103/ul Normal 0.3-0.8 [facility] Comment on above: Performed By: #### T SH #### [facility] [address] [place] [address] Dr. Marlene Blanton Monocytes/100 WBC (Bld) 6.6 % Normal 1.7-12.0 [facility] Comment on above: Performed By: #### T SH #### [facility] [address] [place] [address] Dr. Marlene Blanton NEUT # 7.7 103/ul Critically high 1.4-6.5 [facility] Comment on above: Performed By: #### T SH #### [facility] [address] [place] [address] Dr. Marlene Blanton Neutrophils/100 WBC (Bld) 73.4 % Normal 43.0-75.[address] [facility] Comment on above: Performed By: #### T SH #### [facility] [address] [place] [address] Dr. Marlene Blanton Platelet mean volume (Bld) [Entitic vol] 8.9 fL Critically low 9.5-13.5 [facility] Comment on above: Performed By: #### T SH #### [facility] [address] [place] [address] Dr. Marlene Blanton PLT 288 103/ul Normal 150-[address] [facility] Comment on above: Performed By: #### T SH #### [facility] [address] [place] [address] Dr. Marlene Blanton RBC 4.39 106/ul Normal 4.20-5.40 [facility] Comment on above: Performed By: #### T SH #### [facility] [address] [place] [address] Dr. Marlene Blanton WBC 10.5 103/ul Normal 4.0-11.0 [facility] Comment on above: Performed By: #### T SH #### [facility] [address] [place] [address] Dr. Marlene Blanton FREE T4on 07-04-2022 Free T4 [Mass/Vol] 0.98 ng/dL Normal 0.76-1.46 [facility] Comment on above: Performed By: #### F T4 #### [facility] [address] [place] [address] Dr. Marlene Blanton PROTIMEon 07-04-2022 INR Coag (PPP) [Relative time] 0.95 {INR} Normal [facility] Comment on above: Performed By: #### P T, PTT #### [facility] [address] [place] [address] Dr. Marlene Blatnon INR GUIDELINES SEE BELOW Normal [facility] Comment on above: Result Comment: GLEN RED INR: 2.0 - 3.0 CONDITIONS NOT LISTED BELOW 2.5 - 3.5 FOR PROSTHETIC HEART VALVE REPLACEMENT 2.5 - 3.5 RECURRENT THROMBOSIS Performed By: #### P T, PTT #### [facility] [address] [place] [address] Dr. Marlene Blanton PT Coag (PPP) [Time] 10.1 s Normal 9.0-11.6 [facility] Comment on above: Performed By: #### P T, PTT #### [facility] [address] [place] [address] Dr. Marlene Blanton PTTon 07-04-2022 aPTT Coag (Bld) [Time] 27.2 s Normal 22.3-36.[address] [facility] Comment on above: Performed By: #### P T, PTT #### [facility] [address] [place] [address] Dr. Marlene Blanton TSHon 07-04-2022 TSH 1.916 uIU/mL Normal 0.358-3.740 [facility] Comment on above: Performed By: #### T SH #### [facility] [address] [place] [address] Dr. Marlene Blanton BUNon 06-21-2022 Urea nitrogen [Mass/Vol] 8.0 mg/dL Normal 7.0-18.[address] [facility] Comment on above: Performed By: #### C BC #### [facility] [address] [place] [address] Dr. Marlene Blanton CBC AUTO DIFFon 06-21-2022 BASO # 0.0 103/ul Normal 0.0-0.1 [facility] Comment on above: Performed By: #### T SH #### [facility] [address] [place] [address] Dr. Marlene Blanton Basophils/100 WBC (Bld) 0.2 % Normal 0.2-2.0 [facility] Comment on above: Performed By: #### T SH #### [facility] [address] [place] [address] Dr. Marlene Blanton EO # 0.0 103/ul Normal 0.0-0.[address] [facility] Comment on above: Performed By: #### T SH #### [facility] [address] [place] [address] Dr. Marlene Blanton Eosinophils/100 WBC (Bld) 0.1 % Critically low 0.9-7.[address] [facility] Comment on above: Performed By: #### T SH #### [facility] [address] [place] [address] Dr. Marlene Blanton Erythrocyte distribution width (RBC) [Ratio] 13.4 % Normal 11.0-15.[address] [facility] Comment on above: Performed By: #### T SH #### [facility] [address] [place] [address] Dr. Marlene Blanton Hematocrit (Bld) [Volume fraction] 33.6 % Critically low 36.0-48.0 [facility] Comment on above: Performed By: #### T SH #### [facility] [address] [place] [address] Dr. Marlene Blanton Hemoglobin (Bld) [Mass/Vol] 10.8 g/dL Critically low 12.0-16.0 [facility] Comment on above: Result Comment: post surgery Performed By: #### T SH #### [facility] [address] [place] [address] Dr. Marlene Blanton IG # 0.06 10e3/ul Critically high 0.00-0.03 [facility] Comment on above: Performed By: #### T SH #### [facility] [address] [place] [address] Dr. Marlene Blanton IG % 0.5 % Normal 0.0-0.5 [facility] Comment on above: Performed By: #### T SH #### [facility] [address] [place] [address] Dr. Marlene Blanton LYMPH # 2.0 103/ul Normal 1.2-3.8 [facility] Comment on above: Performed By: #### T SH #### [facility] [address] [place] [address] Dr. Marlene Blanton Lymphocytes/100 WBC (Bld) 16.1 % Critically low 20.5-60.0 [facility] Comment on above: Performed By: #### T SH #### [facility] [address] [place] [address] Dr. Marlene Blanton MANUAL DIFF REQ NO Normal [facility] Comment on above: Performed By: #### T SH #### [facility] [address] [place] [address] Dr. Marlene Blanton MCH (RBC) [Entitic mass] 29.0 pg Normal 26.7-34.0 [facility] Comment on above: Performed By: #### T SH #### [facility] [address] [place] [address] Dr. Marlene Blanton MCHC (RBC) [Mass/Vol] 32.1 g/dL Normal 29.9-35.[address] [facility] Comment on above: Performed By: #### T SH #### [facility] [address] [address] [address] Marlene Blanton MCV (RBC) [Entitic vol] 90.1 fL Normal 81.0-99.[address] [facility] Comment on above: Performed By: #### T SH #### [facility] [address] [address] [address] Marlene Blanton MONO # 0.7 103/ul Normal 0.3-0.[address] [facility] Comment on above: Performed By: #### T SH #### [facility] [address] [place] [address] Dr. Marlene Blanton Monocytes/100 WBC (Bld) 5.3 % Normal 1.7-12.[address] [facility] Comment on above: Performed By: #### T SH #### [facility] [address] [place] [address] Dr. Marlene Blanton NEUT # 9.7 103/ul Critically high 1.4-6.5 [facility] Comment on above: Performed By: #### T SH #### [facility] [address] [place] [address] Dr. Marlene Blanton Neutrophils/100 WBC (Bld) 77.8 % Critically high 43.0-75.[address] [facility] Comment on above: Performed By: #### T SH #### [facility] [address] [place] [address] Dr. Marlene Blanton Platelet mean volume (Bld) [Entitic vol] 8.5 fL Critically low 9.5-13.[address] [facility] Comment on above: Performed By: #### T SH #### [facility] [address] [place] [address] Dr. Marlene Blanton PLT 248 103/ul Normal 150-[address] [facility] Comment on above: Performed By: #### T SH #### [facility] [address] [place] [address] Dr. Marlene Blanton RBC 3.73 106/ul Critically low 4.20-5.40 [facility] Comment on above: Performed By: #### T SH #### [facility] [address] [place] [address] Dr. Marlene Blanton WBC 12.4 103/ul Critically high 4.0-11.0 [facility] Comment on above: Performed By: #### T SH #### [facility] [address] [place] [address] Dr. Marlene Blanton CREATININEon 06-21-2022 Creatinine [Mass/Vol] 0.87 mg/dL Normal 0.55-1.[address] [facility] Comment on above: Performed By: #### C BC #### [facility] [address] [place] [address] Dr. Marlene Blanton EGFR-AF LIBYAN >60 Normal >=60 [facility] Comment on above: Performed By: #### C BC #### [facility] [address] [place] [address] Dr. Marlene Blanton EGFR-NON AF LIBYAN >60 Normal >=[address] [facility] Comment on above: Performed By: #### C BC #### [facility] [address] [place] [address] Dr. Marlene Blanton CBC AUTO DIFFon 06-19-2022 BASO # 0.1 103/ul Normal 0.0-0.1 [facility] Comment on above: Performed By: #### C BC #### [facility] [address] [place] [address] Dr. Marlene Blanton Basophils/100 WBC (Bld) 0.5 % Normal 0.2-2.[address] [facility] Comment on above: Performed By: #### C BC #### [facility] [address] [place] [address] Dr. Marlene Blanton EO # 0.0 103/ul Normal 0.0-0.[address] [facility] Comment on above: Performed By: #### C BC #### [facility] [address] [place] [address] Dr. Marlene Blanton Eosinophils/100 WBC (Bld) 0.1 % Critically low 0.9-7.0 [facility] Comment on above: Performed By: #### C BC #### [facility] [address] [place] [address] Dr. Marlene Blanton Erythrocyte distribution width (RBC) [Ratio] 13.4 % Normal 11.0-15.0 [facility] Comment on above: Performed By: #### C BC #### [facility] [address] [place] [address] Dr. Marlene Blanton Hematocrit (Bld) [Volume fraction] 39.8 % Normal 36.0-48.0 [facility] Comment on above: Performed By: #### C BC #### [facility] [address] [place] [address] Dr. Marlene Blanton Hemoglobin (Bld) [Mass/Vol] 13.2 g/dL Normal 12.0-16.0 [facility] Comment on above: Performed By: #### C BC #### [facility] [address] [place] [address] Dr. Marlene Blanton IG # 0.05 10e3/ul Critically high 0.00-0.03 [facility] Comment on above: Performed By: #### C BC #### [facility] [address] [place] [address] Dr. Marlene Blanton IG % 0.5 % Normal 0.0-0.5 [facility] Comment on above: Performed By: #### C BC #### [facility] [address] [place] [address] Dr. Marlene Blanton LYMPH # 2.4 103/ul Normal 1.2-3.8 [facility] Comment on above: Performed By: #### C BC #### [facility] [address] [place] [address] Dr. Marlene Blanton Lymphocytes/100 WBC (Bld) 24.7 % Normal 20.5-60.0 [facility] Comment on above: Performed By: #### C BC #### [facility] [address] [place] [address] Dr. Marlene Blanton MANUAL DIFF REQ NO Normal [facility] Comment on above: Performed By: #### C BC #### [facility] [address] [place] [address] Dr. Marlene Blanton MCH (RBC) [Entitic mass] 29.7 pg Normal 26.7-34.0 [facility] Comment on above: Performed By: #### C BC #### [facility] [address] [place] [address] Dr. Marlene Blanton MCHC (RBC) [Mass/Vol] 33.2 g/dL Normal 29.9-35.2 [facility] Comment on above: Performed By: #### C BC #### [facility] [address] [place] [address] Dr. Marlene Blanton MCV (RBC) [Entitic vol] 89.4 fL Normal 81.0-99.0 [facility] Comment on above: Performed By: #### C BC #### [facility] [address] [place] [address] Dr. Marlene Blanton MONO # 0.8 103/ul Normal 0.3-0.8 [facility] Comment on above: Performed By: #### C BC #### [facility] [address] [place] [address] Dr. Marlene Blanton Monocytes/100 WBC (Bld) 7.9 % Normal 1.7-12.0 [facility] Comment on above: Performed By: #### C BC #### [facility] [address] [place] [address] Dr. Marlene Blanton NEUT # 6.3 103/ul Normal 1.4-6.[address] [facility] Comment on above: Performed By: #### C BC #### [facility] [address] [place] [address] Dr. Marlene Blanton Neutrophils/100 WBC (Bld) 66.3 % Normal 43.0-75.[address] [facility] Comment on above: Performed By: #### C BC #### [facility] [address] [place] [address] Dr. Marlene Blanton Platelet mean volume (Bld) [Entitic vol] 8.3 fL Critically low 9.5-13.5 [facility] Comment on above: Performed By: #### C BC #### [facility] [address] [address] [address] Marlene Blanton PLT 300 103/ul Normal 150-450 [facility] Comment on above: Performed By: #### C BC #### [facility] [address] [address] [address] Marlene Blanton RBC 4.45 106/ul Normal 4.20-5.40 [facility] Comment on above: Performed By: #### C BC #### [facility] [address] [address] [address] Marlene Blanton WBC 9.6 103/ul Normal 4.0-11.0 [facility] Comment on above: Performed By: #### C BC #### [facility] [address] [place] [address] Dr. Marlene Blanton PREG QUANT HCGon 06-19-2022 HCG QUANT 1 mIU/mL Normal [facility] Comment on above: Performed By: #### P REGQNT #### [facility] [address] [place] [address] Dr. Marlene Blanton HCG RANGE SEE BELOW Normal [facility] Comment on above: Result Comment: 5-50 0.2-1 WEEK 50-500 1-2 WEEKS 100-5,000 2-3 WEEKS 500-10,000 3-4 WEEKS 1,000-50,000 4-5 WEEKS 10,000-100,000 5-6 WEEKS 15,000-200,000 6-8 WEEKS 10,000-100,000 2-3 MONTHS Performed By: #### P REGQNT #### [facility] [address] [address] [address] Marlene Blanton TYPE AND SCREENon 06-19-2022 TYPE AND SCREEN Negative Normal [facility] Comment on above: Performed By: #### C BC #### [facility] [address] [place] [address] Dr. Marlene Blanton ASYMPTOMATIC COVID-19 ANTIGE Non 05-28-2022 EUA Statement SEE BELOW Normal [facility] Comment on above: Result [...] sooner. Performed By: #### C BC #### [facility] [address] [place] [address] Dr. Marlene Blanton SARS-CoV-2 (COVID-19) RNA AUSTIN+probe Ql (Unsp spec) Positive Critically abnormal NEGATIVE [facility] Comment on above: Result Comment: SARS -CoV-2 antigen present; does not rule out coinfection with other pathogens. Performed By: #### C BC #### [facility] [address] [address] [address] Marlene Blanton [facility]24 SARS-CoV-2 (COVID-19) RNA AUSTIN+probe Ql (Unsp spec) Detected Critically abnormal NOT DETECTED [facility] Comment on above: Result Comment: This test is not yet approved or cleared by the [place] FDA. When there are no FDA-approved or cleared tests available, and other criteria are met, FDA can make tests available under an emergency access mechanism called an Emergency Use Authorization (EUA). The EUA for this test is supported by the Manager Battery of Health and Human Service's declaration that [...] used). Performed By: #### C VDTBH #### [facility] [address] [place] [address] Dr. Marlene Blanton PAP ACOG PANEL 2: 30 to 65on 05-15-2022 . . Normal [facility] Comment on above: Result Comment: Perf ormed at: WB Performed By: #### [id number] #### [facility] [address] [place] [address] Dr. Marlene Blanton Age Gdln ACOG Testing 30-65 Normal [facility] Comment on above: Performed By: #### [id number] #### [facility] [address] [place] [address] Dr. Marlene Blanton DIAGNOSIS: Comment Normal [facility] Comment on above: Result Comment: NEGA TIVE FOR INTRAEPITHELIAL LESION OR MALIGNANCY. FUNGAL ORGANISMS MORPHOLOGICALLY CONSISTENT WITH BAILEY SPECIES ARE PRESENT. Performed at: WB Performed By: #### [id number] #### [facility] [address] [place] [address] Dr. Marlene Blanton HPV Aptima Negative Normal Negative [facility] Comment on above: Result Comment: This nucleic acid amplification test detects fourteen high-risk HPV types (16,18,31,33,35,39,45,51,52,56,58,59,66,68) without differentiation. Performed at: =G Performed By: #### [id number] #### [facility] [address] [place] [address] Dr. Marlene Blanton HPV Genotype Reflex Comment Normal [facility] Comment on above: Result Comment: Crit eria not met, HPV Genotype not performed. Performed at: WB Performed By: #### [id number] #### [facility] [address] [place] [address] Dr. Marlene Blanton Methodology: Comment Normal [facility] Comment on above: Result Comment: This liquid based ThinPrep(R) pap test was screened with the use of an image guided system. Performed at: WB Performed By: #### [id number] #### [facility] [address] [place] [address] Dr. Marlene Blanton Note: Comment Normal [facility] Comment on above: Result Comment: The Pap smear is a screening test designed to aid in the detection of premalignant and malignant conditions of the uterine cervix. It is not a diagnostic procedure and should not be used as the sole means of detecting cervical cancer. Both false-positive and false-negative reports do occur. . Performed at: WB Performed By: #### [id number] #### [facility] [address] [address] [address] Marlene Blanton Performed by: Comment Normal [facility] Comment on above: Result Comment: Marycruz Gillespie Import Export Manager (ASCP) Performed at: WB Performed By: #### [id number] #### [facility] [address] [address] [address] Marlene Blanton Specimen adequacy: Comment Normal [facility] Comment on above: Result Comment: Sati sfactory for evaluation. No endocervical component is identified. Performed at: WB Performed By: #### [id number] #### [facility] [address] [address] [address] Marlene Blanton MG MAMM SCREEN 3D JENNIFER CADon 05-14-2022 MG MAMM SCREEN 3D JENNIFER CAD Patient: ELIZA COELLO Exam Date: 05/14/2022 : 1970 Gender:F Ordering : DR JAVID WATSON . Admission #: [id number] Family : DR JOSH HONG . Order #: [id number] CLICK HERE TO VIEW EXAM RADIOLOGY REPORT [...] melanoma cancer at age 19. LOCATION: [facility] BREAST COMPOSITION: Heterogeneously dense,which may obscure small [...] M.D. on 05/14/2022 at 14:[address] [facility] US PELVIS AND TRANSVAGon US PELVIS AND [...] ROSSANA VELÁSQUEZ Date: 2022-05-09 13:[address] [facility] CBC AUTO DIFFon 05-08-2022 BASO # 0.1 103/ul Normal 0.0-0.1 [facility] Comment on above: Performed By: #### T SH #### [facility] [address] [place] [address] Dr. Marlene Blanton Basophils/100 WBC (Bld) 0.7 % Normal 0.2-2.[address] [facility] Comment on above: Performed By: #### T SH #### [facility] [address] [place] [address] Dr. Marlene Blanton EO # 0.0 103/ul Normal 0.0-0.[address] [facility] Comment on above: Performed By: #### T SH #### [facility] [address] [place] [address] Dr. Marlene Blanton Eosinophils/100 WBC (Bld) 0.0 % Critically low 0.9-7.[address] [facility] Comment on above: Performed By: #### T SH #### [facility] [address] [place] [address] Dr. Marlene Blanton Erythrocyte distribution width (RBC) [Ratio] 13.4 % Normal 11.0-15.0 [facility] Comment on above: Performed By: #### T SH #### [facility] [address] [place] [address] Dr. Marlene Blanton Hematocrit (Bld) [Volume fraction] 42.1 % Normal 36.0-48.0 [facility] Comment on above: Performed By: #### T SH #### [facility] [address] [place] [address] Dr. Marlene Blanton Hemoglobin (Bld) [Mass/Vol] 13.8 g/dL Normal 12.0-16.0 [facility] Comment on above: Performed By: #### T SH #### [facility] [address] [place] [address] Dr. Marlene Blanton IG # 0.04 10e3/ul Critically high 0.00-0.03 [facility] Comment on above: Performed By: #### T SH #### [facility] [address] [place] [address] Dr. Marlene Blanton IG % 0.4 % Normal 0.0-0.5 [facility] Comment on above: Performed By: #### T SH #### [facility] [address] [place] [address] Dr. Marlene Blanton LYMPH # 2.1 103/ul Normal 1.2-3.8 [facility] Comment on above: Performed By: #### T SH #### [facility] [address] [place] [address] Dr. Marlene Blanton Lymphocytes/100 WBC (Bld) 23.3 % Normal 20.5-60.0 [facility] Comment on above: Performed By: #### T SH #### [facility] [address] [place] [address] Dr. Marlene Blanton MANUAL DIFF REQ NO Normal [facility] Comment on above: Performed By: #### T SH #### [facility] [address] [place] [address] Dr. Marlene Blanton MCH (RBC) [Entitic mass] 29.3 pg Normal 26.7-34.[address] [facility] Comment on above: Performed By: #### T SH #### [facility] [address] [place] [address] Dr. Marlene Blanton MCHC (RBC) [Mass/Vol] 32.8 g/dL Normal 29.9-35.[address] [facility] Comment on above: Performed By: #### T SH #### [facility] [address] [place] [address] Dr. Marlene Blanton MCV (RBC) [Entitic vol] 89.4 fL Normal 81.0-99.[address] [facility] Comment on above: Performed By: #### T SH #### [facility] [address] [place] [address] Dr. Marlene Blanton MONO # 0.7 103/ul Normal 0.3-0.[address] [facility] Comment on above: Performed By: #### T SH #### [facility] [address] [place] [address] Dr. Marlene Blanton Monocytes/100 WBC (Bld) 7.3 % Normal 1.7-12.[address] [facility] Comment on above: Performed By: #### T SH #### [facility] [address] [place] [address] Dr. Marlene Blanton NEUT # 6.1 103/ul Normal 1.4-6.[address] [facility] Comment on above: Performed By: #### T SH #### [facility] [address] [place] [address] Dr. Marlene Blanton Neutrophils/100 WBC (Bld) 68.3 % Normal 43.0-75.[address] [facility] Comment on above: Performed By: #### T SH #### [facility] [address] [place] [address] Dr. Marlene Blanton Platelet mean volume (Bld) [Entitic vol] 8.8 fL Critically low 9.5-13.[address] [facility] Comment on above: Performed By: #### T SH #### [facility] [address] [place] [address] Dr. Marlene Blanton PLT 310 103/ul Normal 150-450 [facility] Comment on above: Performed By: #### T SH #### [facility] [address] [place] [address] Dr. Marlene Blanton RBC 4.71 106/ul Normal 4.20-5.40 [facility] Comment on above: Performed By: #### T SH #### [facility] [address] [place] [address] Dr. Marlene Blanton WBC 9.0 103/ul Normal 4.0-11.0 [facility] Comment on above: Performed By: #### T SH #### [facility] [address] [place] [address] Dr. Marlene Blanton FREE T4on 05-08-2022 Free T4 [Mass/Vol] 1.09 ng/dL Normal 0.76-1.46 [facility] Comment on above: Performed By: #### T SH #### [facility] [address] [place] [address] Dr. Marlene Blanton PREG QUANT HCGon 05-08-2022 HCG QUANT 1 mIU/mL Normal [facility] Comment on above: Performed By: #### T SH, PREGQNT #### [facility] [address] [place] [address] Dr. Marlene Blanton HCG RANGE SEE BELOW Normal [facility] Comment on above: Result Comment: 5-50 0.2-1 WEEK 50-500 1-2 WEEKS 100-5,000 2-3 WEEKS 500-10,000 3-4 WEEKS 1,000-50,000 4-5 WEEKS 10,000-100,000 5-6 WEEKS 15,000-200,000 6-8 WEEKS 10,000-100,000 2-3 MONTHS Performed By: #### T SH, PREGQNT #### [facility] [address] [place] [address] Dr. Marlene Blanton PROTIMEon 05-08-2022 INR Coag (PPP) [Relative time] 0.95 {INR} Normal [facility] Comment on above: Performed By: #### C BC #### [facility] [address] [place] [address] Dr. Marlene Blanton INR GUIDELINES SEE BELOW Normal [facility] Comment on above: Result Comment: LGEN RED INR: 2.0 - 3.0 CONDITIONS NOT LISTED BELOW 2.5 - 3.5 FOR PROSTHETIC HEART VALVE REPLACEMENT 2.5 - 3.5 RECURRENT THROMBOSIS Performed By: #### C BC #### [facility] [address] [place] [address] Dr. Marlene Blanton PT Coag (PPP) [Time] 10.3 s Normal 9.0-11.6 [facility] Comment on above: Performed By: #### C BC #### [facility] [address] [place] [address] Dr. Marlene Blanton PTTon 05-08-2022 aPTT Coag (Bld) [Time] 26.3 s Normal 22.3-36.2 [facility] Comment on above: Performed By: #### C BC #### [facility] [address] [place] [address] Dr. Marlene Blanton TSHon 05-08-2022 TSH 4.001 uIU/mL Critically high 0.358-3.740 [facility] Comment on above: Performed By: #### T SH, PREGQNT #### [facility] [address] [place] [address] Dr. Marlene Blanton Reminderson 06-01-2020 Reminders - From: Jesenia Price LPN To: GSN - Clinical; Sent: 06/01/2020 08:20:44 EST Show up: 04/24/2030 09:00:00 EDT Subject: colonoscopy recall Due Date/Time: 05/24/2030 09:00:00 EST Reminder/Recall Patient is due for screening colonoscopy 05/24/2030. Normal [facility] Ambulatory Clinical Summaryo n 05-31-2020 Ambulatory Clinical Summary {[id number]}CD:[id number] Normal [facility] General Surgery Office/Clini c Noteon 05-31-2020 General [...] Salguero Only if needed [address] [place] [address]- Additional Instructions: Problem List/Past Medical History Ongoing [...] Primary malignant neoplasm of female breast: Mother. [facility] Comment on above: Result Comment: Elec tronically Signed By: GABRIEL LAUREN, Corby Salguero\.layla\Date and Time Signed: 05/31/20 16:31 EST Pathology Noteon 05-29-2020 Pathology Note [id number] D:127 Normal [facility] Outside Colonoscopyon 2019 Outside Colonoscopy [id number] D:127 [facility] Lab Reportson 05-25-2020 Lab Reports [id number] D:127 Normal [facility] Provider Letter FTon 05-12 Provider Letter [facility] [place] Hong, [address] [place] [address] [place] [address] Re: ELIZA COELLO Date of : 1970 Thank you for your referral of Eliza Coello who was seen on consultation on May 09, 2020, for rectal bleeding, abdominal pain with bowel movements. A colonoscopy is ordered for further evaluation. I will be happy to follow Eliza. Sincerely, Corby Buitrago MD General Surgery [facility] Ambulatory Clinical Summaryo n 05-09-2020 Ambulatory Clinical Summary {[id number] Normal [facility] General Surgery Office/Clini c Noteon 05-09-2020 General [...] available Patient Education Exercise to Stay Healthy, Tolj-[place]-Ehod Problem List/Past Medical History Ongoing Abdominal pain, [...] malignant neoplasm of female breast: Mother. Normal [facility] Comment on above: Result Comment: Elec tronically [...] Document Reviewed: 07/12/2011 ExitCare? Patient Information ?2013 [employer]. Normal [facility] Physician Referralon 020 Physician Referral [id number] D:127 Normal [facility] Vital Signs Date Time Vital Sign Value Performing Clinician Ismael kunz 10-21-2023 14:00-0400 Diastolic blood pressure 72 mm[Hg] MD Josh Hong Work Phone: [facility] 10-21-2023 14:00-0400 Heart rate 77 /min MD Josh Hong Work Phone: [facility] 10-21-2023 14:00-0400 Respiratory rate 16 /min MD Josh Hong Work Phone: [facility] 10-21-2023 14:00-0400 SaO2% (BldA) [Mass fraction] 97 % MD Josh Hong Work Phone: [facility] 10-21-2023 14:00-0400 Systolic blood pressure 121 mm[Hg] MD Josh Hong Work Phone: [facility] 10-21-2023 10:52-0400 Body height 170.18 cm MD Josh Hong Work Phone: [facility] 10-21-2023 10:52-0400 Body weight 79.37 kg MD oJsh Hong Work Phone: [facility] 10-03-2023 09:50-0400 Body height 170.18 cm MD Josh Hong Work Phone: [facility] 10-03-2023 09:50-0400 Body mass index (BMI) [Ratio] 28 kg/m2 MD Josh Hong Work Phone: [facility] 10-03-2023 09:50-0400 Body weight 81.19 kg MD Josh Hnog Work Phone: [facility] 10-03-2023 09:50-0400 Diastolic blood pressure 79 mm[Hg] MD Josh Hong Work Phone: [facility] 10-03-2023 09:50-0400 Heart rate 74 /min MD Josh Hong Work Phone: [facility] 10-03-2023 09:50-0400 Systolic blood pressure 128 mm[Hg] MD Josh Hong Work Phone: [facility] Encounters Encounter Date Encounter Type Care Provider Facility Start: 01-08-2024 End: 01-08-2024 ambulatory REID JORGE Not Available Start: 12-26-2023 End: 12-26-2023 ambulatory MD Josh Hong Work Phone: [facility] Work Phone: Start: 12-26-2023 End: 12-26-2023 Departed Referred MD Josh Hong Work Phone: [facility] Start: 12-01-2023 End: 12-01-2023 ambulatory JAVID SHIRLEY Not Available Start: 11-06-2023 End: 11-06-2023 ambulatory JAVID SHIRLEY Not Available Start: 10-21-2023 Non-patient / Non-visit MD Bennie Hong Work Phone: [facility] Work Phone: Start: 10-21-2023 End: 10-21-2023 Admission to same day surgery center MD Josh Hong Work Phone: [facility] Work Phone: Start: 10-21-2023 End: 10-21-2023 ambulatory MD Josh Hong Work Phone: [facility] Work Phone: Start: 10-03-2023 End: 10-03-2023 Patient encounter procedure MD Josh Hong Work Phone: [facility] Work Phone: Start: 05-14-2023 End: 05-14-2023 ambulatory REID JORGE Not Available Start: 10-30-2022 End: 10-31-[address] JOSH HONG . Facility:[facility] Start: 07-04-2022 End: 07-05-[address] JAVID WATSON . Facility:[facility] Start: 06-21-2022 Encounter for preprocedural laboratory examination DR JAVID WATSON . [facility] Start: 06-20-2022 End: 06-21-[address] JAVID WATSON . Facility:[facility] Start: 06-19-2022 Encounter for preprocedural cardiovascular examination DR JAVID WATSON . [facility] Start: 06-19-2022 End: 06-20-[address] JAVID [...] Date Care Activity Detail Author Start: 10-21-2023 [facility] Patient Education Gastritis Stomach polyp s [facility] Work Phone: Payers Date Payer Category Payer Self-pay 1970 Unknown [id number] 2.16.84 [id number] 1970 Unknown [id number] 2.16.84 [id number] 1970 Unknown [id number] 2.16.84 0.1.902532.3.579.2.593 1970 Unknown [id number] 2.16.84 0.1.075187.3.579.2.593 1970 Unknown [id number] 2.16.84 0.1.703664.3.579.2.593 1970 Unknown [id number] 2.16.84 0.1.157094.3.579.2.593 1970 Unknown [id number] 2.16.84 0.1.738639.3.579.2.593 1970 Unknown [id number] 2.16.84 0.1.463713.3.579.2.593 1970 Unknown [id number] 2.16.84 0.1.400755.3.579.2.593 1970 Unknown [id number] 2.16.84 0.1.100998.3.579.2.593 1970 Unknown [id number] 2.16.84 0.1.271344.3.579.2.593 1970 Unknown [id number] 2.16.84 0.1.633068.3.579.2.1259 1970 Unknown [id number] 2.16.84 0.1.001965.3.579.2.1259 1970 Unknown [id number] 2.16.84 0.1.679890.3.579.2.1259 1970 Unknown [id number] 2.16.840 .1.040542.3.579.2.1259 1959 Unknown [id number] Unknown [id number] 2.16.8 40.1.869844.3.579.2.531 Unknown [id number] 2.16.8 40.1.330349.3.579.2.531 Social History Date Type Detail Facility [facility] Start: 1970 Sex Assigned At Female F [facility] Goals Date Patient Goal Desired Activity /State Procedure note 10-21-2023 Note Date & Type Note Facility 10-21-2023 Procedure note [facility] Procedure note 10-21-2023 Note Date & Type Note Facility 10-21-2023 Procedure note [facility] Clinical Note 06-20-2022 Note Date & Type Note Facility 06-20-2022 Note OPERATIVE NOTE OPERATION DATE: 06/20/2022 PROCEDURE: vNOTES hysterectomy with cystoscopy and bilateral salpingectomy. PREOPERATIVE DIAGNOSIS: Pelvic pressure, menorrhagia, dysmenorrhea, dyspareunia. POSTOPERATIVE DIAGNOSIS: Pelvic pressure, menorrhagia, dysmenorrhea, dyspareunia. ANESTHESIA: General. SURGEON: Javid Watson M.D. HOSPITALIST: PIYUSH Howell URINE OUTPUT: Yellow and clear. [...] Sponge, lap, needle counts correct x2. [facility] Evaluation note Note Date & Type Note Facility Evaluation note Diagnosis Onset Date Abdominal pain acute Bloating acute GERD (gastroesophageal reflux disease) acute Mucus in stool acute [facility] Work Phone: History and physical note Note Date & Type Note Facility History and physical note Note Date/Time October 21, 2023 12:42pm [facility] [address] [place] [address] Gastroenterology H&P Signed Patient: Eliza Coello MR#: [id number] : 1970 Acct:[id number] Age/Sex: 52 / F Adm Date: 4 Loc: Room: Type: [facility] Attending Dr: Elizabeth Perea DO [...] Elizabeth Perea DO> 10/21/23 1242 [facility] Work Phone: Summary Purpose Family History No [...] content) DATE CREATED AUTHOR 06/15/2020 [facility] DATE CREATED AUTHOR AUTHOR'S ORGANIZ ATION 11/03/2022 [facility] DATE CREATED AUTHOR AUTHOR'S ORGANIZ ATION 01/05/2024 [facility] DATE CREATED AUTHOR AUTHOR'S ORGANIZ ATION 01/12/2024 [facility] Care Teams (unrecognized sec tion and [...] THE PRIMARY CLINICAL RECORDS. [facility] [employer] provides no warranty or guarantee of the accuracy or completeness of information in this document.
== END 2024-04-13 15:33 | disposition home or self-care (01) ==
LOC: US 15:32
PROVIDERS: PCP Family Medicine; Visit Provider Obstetrics & Gynecology
DX: N94.9 Unspecified condition associated with female genital organs and menstrual cycle (principal); N83.202 Unspecified ovarian cyst, left side
CPT/HCPCS: 76830; 76856

== ENCOUNTER 2024-05-17 09:39 | Outpatient (OUT) | payer OTHER, SELFPAY ==
--- OUTSIDE RECORDS SUMMARY | 2024-05-17 09:56 | XMS_ITS | CCD ---
Author Organization [facility] Care Team Providers Care Director Of Public Works Name Role Phone SHIRLEY ., DR HUA [...] Unavailable SHIRLEY ., DR HUA Admitting Unavailable SHRILEY ., DR HUA Consulting Unavailable HOY ., [...] Unavailable SHIRLEY ., DR HUA Admitting Unavailable [place], DR ROSSANA Teague Consulting Unavailable HOY ., [...] Unavailable ANTHONYY ., DR MORENO Admitting Unavailable [place], DR ROSSANA Teague Consulting Unavailable MD Josh Hong Primary Care Provider Ly, DO Elizabeth Perez Attending Provider [phone] Shirley, DO Hua Attending Provider Ly, Elizabeth [...] (2 sources) Fluconazole Drug Allergy 06-23-2021 [facility] Repository (1 source) levoFLOXacin Drug Allergy [facility] Repository (1 source) levoFLOXacin Drug Allergy 10-21-2023 [facility] Repository Medications Current Medications Medication Drug Class(es) [...] 2 tablets by mouth once daily Vitamin [id number] Acid Active 2 TAB PO Daily October [...] 07-03-2022 Episodic Other aftercare (1 source) Other fpc (current) drug therapy; Translations: [OTH HALFWAY CURRENT DRUG THERAPY] Onset: 07-03-2022 Episodic Other aftercare (1 source) detention (current) use of oral hypoglycemic drugs; Translations: [HALFWAY USE ORAL HYPOGLYCEMIC DX] Onset: 07-03-2022 Episodic [...] Test Name Value Interpretation Reference Range Facility [facility] 12-26-2023 L Specimen: [id number] Received: 12/29/23 Status: ANUSHA Collier Num: [id number] Spec Type: Surgical Subm Dr: Javid Watson Tissues: A Fallopian Tube Biopsy (RT TUBE REMNANT) Procedures: HE/2, Gross/Micro L4 Age/ Patient Sex Location Account Attending Physician Eliza Coello 53/F LABELL [id number] Javid Watson SPEC NUM: [id number] RECD: 12/29/23 STATUS: ANUSHA COLLIER NUM: [id number] CECILE: 12/26/[address]: Javid Watson ENTERED: 12/29/23 [facility] DR: Glenda,Lab SPEC TYPE: Surgical DEPT: CASIMIRO [...] fluid. No normal tubal mucosa is identified. Machine Rigger sections are submitted in A1. CPT Codes 01570 Specimen: [id number] Received: 12/29/23 Status: ANUSHA Collier Num: [id number] Spec Type: Surgical Subm Dr: Javid Watson Tissues: A Fallopian Tube Biopsy (RT TUBE REMNANT) Procedures: HE/Gigi, Gross/Micro L4 Patient: Eliza Coello [id number] (Continued) Signed (signature on file) Seth Blanton MD 12/30/23 0828 Normal [facility] Kevin 10-21-2023 L Specimen: [id number] Received: 10/21/23 Status: ANUSHA Collier Num: [id number] Spec Type: Surgical Subm Dr: Elizabeth Perea DO Tissues: A Small Intestine - Biopsy/Polyp (SMALL BOWEL) B GASTRIC FOR HP (GASTRIC HP) C Gastric Biopsy (GASTRIC POLYP) Procedures: HE/6, Gross/Micro L4/3, H PYLORI, IHC First AB Age/ Patient Sex Location Account Attending Physician OumouEliza denny 52/F [id number] Elizabeth Perea DO SPEC NUM: [id number] RECD: 10/21/23 STATUS: ANUSHA COLLIER NUM: [id number] CECILE: 10/21/23- SUBM DR: Elizabeth Perea DO ENTERED: 10/21/23 [facility] DR: SPEC TYPE: Surgical DEPT: S ORDERED: [...] tissue fragment, entirely submitted in B1. Specimen: [id number] Received: 10/21/23 Status: ANUSHA Collier Num: [id number] Spec Type: Surgical Subm Dr: Elizabeth Perea DO Tissues: A Small Intestine - Biopsy/Polyp (SMALL BOWEL) B GASTRIC FOR HP (GASTRIC HP) C Gastric Biopsy (GASTRIC POLYP) Procedures: HE/6, Gross/Micro L4/3, H PYLORI, IHC First AB Patient: OumouEliza [id number] (Continued) Specimen: [id number] Received: 10/21/23 (Continued) Gross Description (Continued) Signed (signature on file) Rossana Solares MD 10/22/23 1633 Specimen: [id number] Received: 10/21/23 Status: ANUSHA Collier Num: [id number] Spec Type: Surgical Subm Dr: Elizabeth Perea DO Tissues: A Small Intestine - Biopsy/Polyp (SMALL BOWEL) B GASTRIC FOR HP (GASTRIC HP) C Gastric Biopsy (GASTRIC POLYP) Procedures: HE/6, Gross/Micro L4/3, H PYLORI, IHC First AB Patient: Eliza Coello [id number] (Continued) Specimen: [id number] Received: 10/21/23 (Continued) Gross Description (Continued) C. Further labeled gastric polyp is a 0.4 x 0.2 x 0.1 cm menjivar mucosal tissue fragment, entirely submitted in C1. Clinical history: Rule out celiac, rule out H. pylori. CPT Codes 49967x7, 84335 Specimen: [id number] Received: 10/21/23 Status: ANUSHA Collier Num: [id number] Spec Type: Surgical Subm Dr: Elizabeth Perea, DO Tissues: A Small Intestine - Biopsy/Polyp (SMALL BOWEL) B GASTRIC FOR HP (GASTRIC HP) C Gastric Biopsy (GASTRIC POLYP) Procedures: HE/6, Gross/Micro L4/3, H PYLORI, IHC First AB Patient: OumouEliza Sharonda [id number] (Continued) Signed (signature on file) Rossana Solares MD 10/22/23 1633 Normal [facility] VC VENOUS REFLUX RT [facility] VC VENOUS REFLUX RT [facility] Patient: ROBERT COELLOFLASH Mcdonough. Exam Date: 10/30/2022 : 1970 Gender:F Ordering : DR JOSH HONG . Admission #: [id number] Family : Order #: [id number] CLICK HERE TO VIEW EXAM RADIOLOGY REPORT [...] Compressibility: Normal. Flow: Moderate deep venous reflux. Wrapper And Preserver: None. Tech Note: Incompetent varicose vein lateral [...] MD on 10/30/2022 at 12:59 Normal [facility] CBC AUTO DIFFon 07-04-2022 BASO # 0.1 103/ul Normal 0.0-0.1 [facility] Comment on above: Performed By: #### T SH #### [facility] Laboratory [address] [address] [address] Marlene Blanton Basophils/100 WBC (Bld) 0.6 % Normal 0.2-2.0 [facility] Comment on above: Performed By: #### T SH #### [facility] [address] [address] [address] Marlene Blanton EO # 0.0 103/ul Normal 0.0-0.7 [facility] Comment on above: Performed By: #### T SH #### [facility] [address] [address] [address] Marlene Blanton Eosinophils/100 WBC (Bld) 0.0 % Critically low 0.9-7.0 [facility] Comment on above: Performed By: #### T SH #### [facility] [address] [place] [address] Dr. Marlene Blanton Erythrocyte distribution width (RBC) [Ratio] 13.3 % Normal 11.0-15.0 [facility] Comment on above: Performed By: #### T SH #### [facility] [address] [place] [address] Dr. Marlene Blanton Hematocrit (Bld) [Volume fraction] 42.3 % Normal 36.0-48.0 [facility] Comment on above: Performed By: #### T SH #### [facility] [address] [place] [address] Dr. Marlene Blanton Hemoglobin (Bld) [Mass/Vol] 13.0 g/dL Normal 12.0-16.0 [facility] Comment on above: Performed By: #### T SH #### [facility] [address] [place] [address] Dr. Marlene Blanton IG # 0.04 10e3/ul Critically high 0.00-0.03 [facility] Comment on above: Performed By: #### T SH #### [facility] [address] [place] [address] Dr. Marlene Blanton IG % 0.4 % Normal 0.0-0.5 [facility] Comment on above: Performed By: #### T SH #### [facility] [address] [place] [address] Dr. Marlene Blanton LYMPH # 2.0 103/ul Normal 1.2-3.8 [facility] Comment on above: Performed By: #### T SH #### [facility] [address] [place] [address] Dr. Marlene Blanton Lymphocytes/100 WBC (Bld) 19.0 % Critically low 20.5-60.0 [facility] Comment on above: Performed By: #### T SH #### [facility] [address] [place] [address] Dr. Marlene Blanton MANUAL DIFF REQ NO Normal [facility] Comment on above: Performed By: #### T SH #### [facility] [address] [place] [address] Dr. Marlene Blanton MCH (RBC) [Entitic mass] 29.6 pg Normal 26.7-34.0 [facility] Comment on above: Performed By: #### T SH #### [facility] [address] [place] [address] Dr. Marlene Blanton MCHC (RBC) [Mass/Vol] 30.7 g/dL Normal 29.9-35.2 [facility] Comment on above: Performed By: #### T SH #### [facility] [address] [address] [address] Marlene Blanton MCV (RBC) [Entitic vol] 96.4 fL Normal 81.0-99.0 [facility] Comment on above: Performed By: #### T SH #### [facility] [address] [place] [address] Dr. Marlene Blanton MONO # 0.7 103/ul Normal 0.3-0.8 [facility] Comment on above: Performed By: #### T SH #### [facility] [address] [place] [address] Dr. Marlene Blanton Monocytes/100 WBC (Bld) 6.6 % Normal 1.7-12.0 [facility] Comment on above: Performed By: #### T SH #### [facility] [address] [place] [address] Dr. Marlene Blanton NEUT # 7.7 103/ul Critically high 1.4-6.5 [facility] Comment on above: Performed By: #### T SH #### [facility] [address] [place] [address] Dr. Marlene Blanton Neutrophils/100 WBC (Bld) 73.4 % Normal 43.0-75.0 [facility] Comment on above: Performed By: #### T SH #### [facility] [address] [place] [address] Dr. Marlene Blanton Platelet mean volume (Bld) [Entitic vol] 8.9 fL Critically low 9.5-13.5 [facility] Comment on above: Performed By: #### T SH #### [facility] [address] [place] [address] Dr. Marlene lBanton PLT 288 103/ul Normal 150-450 [facility] Comment on above: Performed By: #### T SH #### [facility] [address] [place] [address] Dr. Marlene Blanton RBC 4.39 106/ul Normal 4.20-5.40 [facility] Comment on above: Performed By: #### T SH #### [facility] [address] [place] [address] Dr. Marlene Blanton WBC 10.5 103/ul Normal 4.0-11.0 [facility] Comment on above: Performed By: #### T SH #### [facility] [address] [place] [address] Dr. Marlene Blanton FREE T4on 07-04-2022 Free T4 [Mass/Vol] 0.98 ng/dL Normal 0.76-1.46 [facility] Comment on above: Performed By: #### F T4 #### [facility] [address] [place] [address] Dr. Marlene Blanton PROTIMEon 07-04-2022 INR Coag (PPP) [Relative time] 0.95 {INR} Normal [facility] Comment on above: Performed By: #### P T, PTT #### [facility] [address] [place] [address] Dr. Marlene Blanton INR GUIDELINES SEE BELOW Normal [facility] Comment on above: Result Comment: GLEN RED INR: 2.0 - 3.0 CONDITIONS NOT LISTED BELOW 2.5 - 3.5 FOR PROSTHETIC HEART VALVE REPLACEMENT 2.5 - 3.5 RECURRENT THROMBOSIS Performed By: #### P T, PTT #### [facility] [address] [place] [address] Dr. Marlene Blanton PT Coag (PPP) [Time] 10.1 s Normal 9.0-11.6 [facility] Comment on above: Performed By: #### P T, PTT #### [facility] [address] [place] [address] Dr. Marlene Blanton PTTon 07-04-2022 aPTT Coag (Bld) [Time] 27.2 s Normal 22.3-36.2 [facility] Comment on above: Performed By: #### P T, PTT #### [facility] [address] [place] [address] Dr. Marlene Blanton TSHon 07-04-2022 TSH 1.916 uIU/mL Normal 0.358-3.740 [facility] Comment on above: Performed By: #### T SH #### [facility] [address] [place] [address] Dr. Marlene Blanton BUNon 06-21-2022 Urea nitrogen [Mass/Vol] 8.0 mg/dL Normal 7.0-18.0 [facility] Comment on above: Performed By: #### C BC #### [facility] [address] [place] [address] Dr. Marlene Blanton CBC AUTO DIFFon 06-21-2022 BASO # 0.0 103/ul Normal 0.0-0.1 [facility] Comment on above: Performed By: #### T SH #### [facility] [address] [place] [address] Dr. Marlene Blanton Basophils/100 WBC (Bld) 0.2 % Normal 0.2-2.0 [facility] Comment on above: Performed By: #### T SH #### [facility] [address] [place] [address] Dr. Marlene Blanton EO # 0.0 103/ul Normal 0.0-0.7 [facility] Comment on above: Performed By: #### T SH #### [facility] [address] [place] [address] Dr. Marlene Blanton Eosinophils/100 WBC (Bld) 0.1 % Critically low 0.9-7.0 [facility] Comment on above: Performed By: #### T SH #### [facility] [address] [place] [address] Dr. Marlene Blanton Erythrocyte distribution width (RBC) [Ratio] 13.4 % Normal 11.0-15.0 [facility] Comment on above: Performed By: #### T SH #### [facility] [address] [place] [address] Dr. Marlene Blanton Hematocrit (Bld) [Volume fraction] 33.6 % Critically low 36.0-48.0 [facility] Comment on above: Performed By: #### T SH #### [facility] [address] [place] [address] Dr. Marlene Blanton Hemoglobin (Bld) [Mass/Vol] 10.8 g/dL Critically low 12.0-16.0 [facility] Comment on above: Result Comment: post surgery Performed By: #### T SH #### [facility] [address] [place] [address] Dr. Marlene Blanton IG # 0.06 10e3/ul Critically high 0.00-0.03 [facility] Comment on above: Performed By: #### T SH #### [facility] [address] [place] [address] Dr. Marlene Blanton IG % 0.5 % Normal 0.0-0.5 [facility] Comment on above: Performed By: #### T SH #### [facility] [address] [place] [address] Dr. Marlene Blanton LYMPH # 2.0 103/ul Normal 1.2-3.8 [facility] Comment on above: Performed By: #### T SH #### [facility] [address] [place] [address] Dr. Mralene Blanton Lymphocytes/100 WBC (Bld) 16.1 % Critically low 20.5-60.0 [facility] Comment on above: Performed By: #### T SH #### [facility] [address] [place] [address] Dr. Marlene Blanton MANUAL DIFF REQ NO Normal [facility] Comment on above: Performed By: #### T SH #### [facility] [address] [place] [address] Dr. Marlene Blanton MCH (RBC) [Entitic mass] 29.0 pg Normal 26.7-34.0 [facility] Comment on above: Performed By: #### T SH #### [facility] [address] [place] [address] Dr. Marlene Blanton MCHC (RBC) [Mass/Vol] 32.1 g/dL Normal 29.9-35.2 [facility] Comment on above: Performed By: #### T SH #### [facility] [address] [address] [address] Marlene Blanton MCV (RBC) [Entitic vol] 90.1 fL Normal 81.0-99.0 [facility] Comment on above: Performed By: #### T SH #### [facility] [address] [address] [address] Marlene Blanton MONO # 0.7 103/ul Normal 0.3-0.8 [facility] Comment on above: Performed By: #### T SH #### [facility] [address] [place] [address] Dr. Marlene Blanton Monocytes/100 WBC (Bld) 5.3 % Normal 1.7-12.0 [facility] Comment on above: Performed By: #### T SH #### [facility] [address] [place] [address] Dr. Marlene Blanton NEUT # 9.7 103/ul Critically high 1.4-6.5 [facility] Comment on above: Performed By: #### T SH #### [facility] [address] [place] [address] Dr. Marlene Blanton Neutrophils/100 WBC (Bld) 77.8 % Critically high 43.0-75.0 [facility] Comment on above: Performed By: #### T SH #### [facility] [address] [place] [address] Dr. Marlene Blanton Platelet mean volume (Bld) [Entitic vol] 8.5 fL Critically low 9.5-13.5 [facility] Comment on above: Performed By: #### T SH #### [facility] [address] [place] [address] Dr. Marlene Blanton PLT 248 103/ul Normal 150-450 [facility] Comment on above: Performed By: #### T SH #### [facility] [address] [place] [address] Dr. Marlene Blanton RBC 3.73 106/ul Critically low 4.20-5.40 [facility] Comment on above: Performed By: #### T SH #### [facility] [address] [place] [address] Dr. Marlene Blanton WBC 12.4 103/ul Critically high 4.0-11.[address] [facility] Comment on above: Performed By: #### T SH #### [facility] [address] [place] [address] Dr. Marlene Blanton CREATININEon 06-21-2022 Creatinine [Mass/Vol] 0.87 mg/dL Normal 0.55-1.02 [facility] Comment on above: Performed By: #### C BC #### [facility] [address] [place] [address] Dr. Marlene Blanton EGFR-AF SWEDISH >60 Normal >=[address] [facility] Comment on above: Performed By: #### C BC #### [facility] [address] [place] [address] Dr. Marlene Blanton EGFR-NON AF SWEDISH >60 Normal >=60 [facility] Comment on above: Performed By: #### C BC #### [facility] [address] [place] [address] Dr. Marlene Blanton CBC AUTO DIFFon 06-19-2022 BASO # 0.1 103/ul Normal 0.0-0.1 [facility] Comment on above: Performed By: #### C BC #### [facility] [address] [place] [address] Dr. Marlene Blanton Basophils/100 WBC (Bld) 0.5 % Normal 0.2-2.0 [facility] Comment on above: Performed By: #### C BC #### [facility] [address] [place] [address] Dr. Marlene Blanton EO # 0.0 103/ul Normal 0.0-0.7 [facility] Comment on above: Performed By: #### C BC #### [facility] [address] [place] [address] Dr. Marlene Blanton Eosinophils/100 WBC (Bld) 0.1 % Critically low 0.9-7.0 [facility] Comment on above: Performed By: #### C BC #### [facility] [address] [place] [address] Dr. Marlene Blanton Erythrocyte distribution width (RBC) [Ratio] 13.4 % Normal 11.0-15.0 [facility] Comment on above: Performed By: #### C BC #### [facility] [address] [place] [address] Dr. Marlene Blanton Hematocrit (Bld) [Volume fraction] 39.8 % Normal 36.0-48.0 [facility] Comment on above: Performed By: #### C BC #### [facility] [address] [place] [address] Dr. Marlene Blanton Hemoglobin (Bld) [Mass/Vol] 13.2 g/dL Normal 12.0-16.0 [facility] Comment on above: Performed By: #### C BC #### [facility] [address] [place] [address] Dr. Marlene Blanton IG # 0.05 10e3/ul Critically high 0.00-0.03 [facility] Comment on above: Performed By: #### C BC #### [facility] [address] [place] [address] Dr. Marlene Blanton IG % 0.5 % Normal 0.0-0.5 [facility] Comment on above: Performed By: #### C BC #### [facility] [address] [place] [address] Dr. Marlene Blanton LYMPH # 2.4 103/ul Normal 1.2-3.8 [facility] Comment on above: Performed By: #### C BC #### [facility] [address] [place] [address] Dr. Marlene Blanton Lymphocytes/100 WBC (Bld) 24.7 % Normal 20.5-60.0 [facility] Comment on above: Performed By: #### C BC #### [facility] [address] [place] [address] Dr. Marlene Blanton MANUAL DIFF REQ NO Normal [facility] Comment on above: Performed By: #### C BC #### [facility] [address] [place] [address] Dr. Marlene Blanton MCH (RBC) [Entitic mass] 29.7 pg Normal 26.7-34.0 [facility] Comment on above: Performed By: #### C BC #### [facility] [address] [place] [address] Dr. Marlene Blanton MCHC (RBC) [Mass/Vol] 33.2 g/dL Normal 29.9-35.2 [facility] Comment on above: Performed By: #### C BC #### [facility] [address] [place] [address] Dr. Marlene Blanton MCV (RBC) [Entitic vol] 89.4 fL Normal 81.0-99.0 [facility] Comment on above: Performed By: #### C BC #### [facility] [address] [place] [address] Dr. Marlene Blanton MONO # 0.8 103/ul Normal 0.3-0.8 [facility] Comment on above: Performed By: #### C BC #### [facility] [address] [place] [address] Dr. Marlene Blanton Monocytes/100 WBC (Bld) 7.9 % Normal 1.7-12.0 [facility] Comment on above: Performed By: #### C BC #### [facility] [address] [place] [address] Dr. Marlene Blanton NEUT # 6.3 103/ul Normal 1.4-6.5 [facility] Comment on above: Performed By: #### C BC #### [facility] [address] [place] [address] Dr. Marlene Blanton Neutrophils/100 WBC (Bld) 66.3 % Normal 43.0-75.0 [facility] Comment on above: Performed By: #### C BC #### [facility] [address] [place] [address] Dr. Marlene Blanton Platelet mean volume (Bld) [Entitic vol] 8.3 fL Critically low 9.5-13.5 [facility] Comment on above: Performed By: #### C BC #### [facility] [address] [address] [address] Marlene Blanton PLT 300 103/ul Normal 150-450 [facility] Comment on above: Performed By: #### C BC #### [facility] [address] [address] [address] Marlene Blanton RBC 4.45 106/ul Normal 4.20-5.40 [facility] Comment on above: Performed By: #### C BC #### [facility] [address] [address] [address] Marlene Blanton WBC 9.6 103/ul Normal 4.0-11.0 [facility] Comment on above: Performed By: #### C BC #### [facility] [address] [place] [address] Dr. Marlene Blanton PREG QUANT HCGon 06-19-2022 HCG QUANT 1 mIU/mL Normal [facility] Comment on above: Performed By: #### P REGQNT #### [facility] [address] [place] [address] Dr. Marlene Blanton HCG RANGE SEE BELOW Normal [facility] Comment on above: Result Comment: 5-50 0.2-1 WEEK 50-500 1-2 WEEKS 100-5,000 2-3 WEEKS 500-10,000 3-4 WEEKS 1,000-50,000 4-5 WEEKS 10,000-100,000 5-6 WEEKS 15,000-200,000 6-8 WEEKS 10,000-100,000 2-3 MONTHS Performed By: #### P REGQNT #### [facility] [address] [address] [address] Marlene Blanton TYPE AND SCREENon 06-19-2022 TYPE AND SCREEN Negative Normal [facility] Comment on above: Performed By: #### C BC #### [facility] [address] [place] [address] Dr. Marlene Blanton ASYMPTOMATIC COVID-19 ANTIGE Non 05-28-2022 EUA Statement SEE BELOW Normal [facility] Comment on above: Result Comment: This test [...] sooner. Performed By: #### C BC #### [facility] [address] [place] [address] Dr. Marlene Blanton SARS-CoV-2 (COVID-19) RNA [place]+probe Ql (Unsp spec) Positive Critically abnormal NEGATIVE [facility] Comment on above: Result Comment: SARS -CoV-2 antigen present; does not rule out coinfection with other pathogens. Performed By: #### C BC #### [facility] [address] [address] [address] Marlene Blanton [facility] SARS-CoV-2 (COVID-19) RNA [place]+probe Ql (Unsp spec) Detected Critically abnormal NOT DETECTED [facility] Comment on above: Result Comment: This test is not yet approved or cleared by the [place] FDA. When there are no FDA-approved or cleared tests available, and other criteria are met, FDA can make tests available under an emergency access mechanism called an Emergency Use Authorization (EUA). The EUA for this test is supported by the Railroad Con[employer] of Health and Human Service's declaration that [...] used). Performed By: #### C VDTBH #### [facility] [address] [place] [address] Dr. Marlene Blanton PAP ACOG PANEL 2: 30 to 65on 05-15-2022 . . Normal [facility] Comment on above: Result Comment: Perf ormed at: WB Performed By: #### [id number] #### [facility] [address] [place] [address] Dr. Marlene Blanton Age Gdln ACOG Testing 30-65 Normal [facility] Comment on above: Performed By: #### [id number] #### [facility] [address] [place] [address] Dr. Marlene Blanton DIAGNOSIS: Comment Normal [facility] Comment on above: Result Comment: NEGA TIVE FOR INTRAEPITHELIAL LESION OR MALIGNANCY. FUNGAL ORGANISMS MORPHOLOGICALLY CONSISTENT WITH BAILEY SPECIES ARE PRESENT. Performed at: WB Performed By: #### [id number] #### [facility] [address] [place] [address] Dr. Marlene Blanton HPV Aptima Negative Normal Negative [facility] Comment on above: Result Comment: This nucleic acid amplification test detects fourteen high-risk HPV types (16,18,31,33,35,39,45,51,52,56,58,59,66,68) without differentiation. Performed at: =G Performed By: #### [id number] #### [facility] [address] [place] [address] Dr. Marlene Blanton HPV Genotype Reflex Comment Normal [facility] Comment on above: Result Comment: Crit eria not met, HPV Genotype not performed. Performed at: WB Performed By: #### [id number] #### [facility] [address] [place] [address] Dr. Marlene Blanton Methodology: Comment Normal [facility] Comment on above: Result Comment: This liquid based ThinPrep(R) pap test was screened with the use of an image guided system. Performed at: WB Performed By: #### [id number] #### [facility] [address] [place] [address] Dr. Marlene Blanton Note: Comment Normal [facility] Comment on above: Result Comment: The Pap smear is a screening test designed to aid in the detection of premalignant and malignant conditions of the uterine cervix. It is not a diagnostic procedure and should not be used as the sole means of detecting cervical cancer. Both false-positive and false-negative reports do occur. . Performed at: WB Performed By: #### [id number] #### [facility] [address] [address] [address] Marlene Blanton Performed by: Comment Normal [facility] Comment on above: Result Comment: Marycruz Gillespie Boot Turner (ASCP) Performed at: WB Performed By: #### [id number] #### [facility] [address] [address] [address] Marlene Blanton Specimen adequacy: Comment Normal [facility] Comment on above: Result Comment: Sati sfactory for evaluation. No endocervical component is identified. Performed at: WB Performed By: #### [id number] #### [facility] [address] [address] [address] Marlene Blanton MG MAMM SCREEN 3D JENNIFER CADon 05-14-2022 MG MAMM SCREEN 3D JENNIFER CAD Patient: ELIZA COELLO Exam Date: 05/14/2022 : 1970 Gender:F Ordering : DR JAVID WATSON . Admission #: [id number] Family : DR JOSH HONG . Order #: [id number] CLICK HERE TO VIEW EXAM RADIOLOGY REPORT [...] melanoma cancer at age 19. LOCATION: [facility] BREAST COMPOSITION: Heterogeneously dense,which may obscure small [...] M.D. on 05/14/2022 at 14:48 Normal [facility] US PELVIS AND TRANSVAGon US PELVIS AND [...] ROSSANA VELÁSQUEZ Date: 2022-05-09 13:04 Normal [facility] CBC AUTO DIFFon 05-08-2022 BASO # 0.1 103/ul Normal 0.0-0.1 [facility] Comment on above: Performed By: #### T SH #### [facility] [address] [place] [address] Dr. Marlene Blanton Basophils/100 WBC (Bld) 0.7 % Normal 0.2-2.0 [facility] Comment on above: Performed By: #### T SH #### [facility] [address] [place] [address] Dr. Marlene Blanton EO # 0.0 103/ul Normal 0.0-0.7 [facility] Comment on above: Performed By: #### T SH #### [facility] [address] [place] [address] Dr. Marlene Blanton Eosinophils/100 WBC (Bld) 0.0 % Critically low 0.9-7.0 [facility] Comment on above: Performed By: #### T SH #### [facility] [address] [place] [address] Dr. Marlene Blanton Erythrocyte distribution width (RBC) [Ratio] 13.4 % Normal 11.0-15.0 [facility] Comment on above: Performed By: #### T SH #### [facility] [address] [place] [address] Dr. Marlene Blanton Hematocrit (Bld) [Volume fraction] 42.1 % Normal 36.0-48.0 [facility] Comment on above: Performed By: #### T SH #### [facility] [address] [place] [address] Dr. Marlene Blanton Hemoglobin (Bld) [Mass/Vol] 13.8 g/dL Normal 12.0-16.0 [facility] Comment on above: Performed By: #### T SH #### [facility] [address] [place] [address] Dr. Marlene Blanton IG # 0.04 10e3/ul Critically high 0.00-0.03 [facility] Comment on above: Performed By: #### T SH #### [facility] [address] [place] [address] Dr. Marlene Blanton IG % 0.4 % Normal 0.0-0.5 [facility] Comment on above: Performed By: #### T SH #### [facility] [address] [place] [address] Dr. Marlene Blanton LYMPH # 2.1 103/ul Normal 1.2-3.8 [facility] Comment on above: Performed By: #### T SH #### [facility] [address] [place] [address] Dr. Marlene Blanton Lymphocytes/100 WBC (Bld) 23.3 % Normal 20.5-60.0 [facility] Comment on above: Performed By: #### T SH #### [facility] [address] [place] [address] Dr. Marlene Blanton MANUAL DIFF REQ NO Normal [facility] Comment on above: Performed By: #### T SH #### [facility] [address] [place] [address] Dr. Marlene Blanton MCH (RBC) [Entitic mass] 29.3 pg Normal 26.7-34.0 [facility] Comment on above: Performed By: #### T SH #### [facility] [address] [place] [address] Dr. Marlene Blanton MCHC (RBC) [Mass/Vol] 32.8 g/dL Normal 29.9-35.2 [facility] Comment on above: Performed By: #### T SH #### [facility] [address] [place] [address] Dr. Marlene Blanton MCV (RBC) [Entitic vol] 89.4 fL Normal 81.0-99.0 [facility] Comment on above: Performed By: #### T SH #### [facility] [address] [place] [address] Dr. Marlene Blanton MONO # 0.7 103/ul Normal 0.3-0.8 [facility] Comment on above: Performed By: #### T SH #### [facility] [address] [place] [address] Dr. Marlene Blanton Monocytes/100 WBC (Bld) 7.3 % Normal 1.7-12.0 [facility] Comment on above: Performed By: #### T SH #### [facility] [address] [place] [address] Dr. Marlene Blanton NEUT # 6.1 103/ul Normal 1.4-6.5 [facility] Comment on above: Performed By: #### T SH #### [facility] [address] [place] [address] Dr. Marlene Blanton Neutrophils/100 WBC (Bld) 68.3 % Normal 43.0-75.0 [facility] Comment on above: Performed By: #### T SH #### [facility] [address] [place] [address] Dr. Marlene Blanton Platelet mean volume (Bld) [Entitic vol] 8.8 fL Critically low 9.5-13.5 [facility] Comment on above: Performed By: #### T SH #### [facility] [address] [place] [address] Dr. Marlene Blanton PLT 310 103/ul Normal 150-450 [facility] Comment on above: Performed By: #### T SH #### [facility] [address] [place] [address] Dr. Marlene Blanton RBC 4.71 106/ul Normal 4.20-5.40 [facility] Comment on above: Performed By: #### T SH #### [facility] [address] [place] [address] Dr. Marlene Blanton WBC 9.0 103/ul Normal 4.0-11.0 [facility] Comment on above: Performed By: #### T SH #### [facility] [address] [place] [address] Dr. Marlene Blanton FREE T4on 05-08-2022 Free T4 [Mass/Vol] 1.09 ng/dL Normal 0.76-1.46 [facility] Comment on above: Performed By: #### T SH #### [facility] [address] [place] [address] Dr. Marlene Blanton PREG QUANT HCGon 05-08-2022 HCG QUANT 1 mIU/mL Normal [facility] Comment on above: Performed By: #### T SH, PREGQNT #### [facility] [address] [place] [address] Dr. Marlene Blanton HCG RANGE SEE BELOW Normal [facility] Comment on above: Result Comment: 5-50 0.2-1 WEEK 50-500 1-2 WEEKS 100-5,000 2-3 WEEKS 500-10,000 3-4 WEEKS 1,000-50,000 4-5 WEEKS 10,000-100,000 5-6 WEEKS 15,000-200,000 6-8 WEEKS 10,000-100,000 2-3 MONTHS Performed By: #### T SH, PREGQNT #### [facility] [address] [place] [address] Dr. Marlene Blanton PROTIMEon 05-08-2022 INR Coag (PPP) [Relative time] 0.95 {INR} Normal [facility] Comment on above: Performed By: #### C BC #### [facility] [address] [place] [address] Dr. Marlene Blanton INR GUIDELINES SEE BELOW Normal [facility] Comment on above: Result Comment: GLEN RED INR: 2.0 - 3.0 CONDITIONS NOT LISTED BELOW 2.5 - 3.5 FOR PROSTHETIC HEART VALVE REPLACEMENT 2.5 - 3.5 RECURRENT THROMBOSIS Performed By: #### C BC #### [facility] [address] [place] [address] Dr. Marlene Blanton PT Coag (PPP) [Time] 10.3 s Normal 9.0-11.6 [facility] Comment on above: Performed By: #### C BC #### [facility] [address] [place] [address] Dr. Marlene Blanton PTTon 05-08-2022 aPTT Coag (Bld) [Time] 26.3 s Normal 22.3-36.2 [facility] Comment on above: Performed By: #### C BC #### [facility] [address] [place] [address] Dr. Marlene Blanton TSHon 05-08-2022 TSH 4.001 uIU/mL Critically high 0.358-3.740 [facility] Comment on above: Performed By: #### T SH, PREGQNT #### [facility] [address] [place] [address] Dr. Marlene Blanton Reminderson 06-01-2020 Reminders - From: Jesenia Price LPN To: GSN - Clinical; Sent: 06/01/2020 08:20:44 EST Show up: 04/24/2030 09:00:00 EDT Subject: colonoscopy recall Due Date/Time: 05/24/2030 09:00:00 EST Reminder/Recall Patient is due for screening colonoscopy 05/24/2030. Normal [facility] Ambulatory Clinical Summaryo n 05-31-2020 Ambulatory Clinical Summary {[id number]}CD:[id number] Normal [facility] General Surgery Office/Clini c Noteon [...] Salguero Only if needed [address] [place] [address]- Additional Instructions: Problem List/Past Medical History Ongoing [...] Primary malignant neoplasm of female breast: Mother. [facility] Comment on above: Result Comment: Elec tronically Signed By: GABRIEL LAUREN, Corby Salguero\.layla\Date and Time Signed: 05/31/20 16:31 EST Pathology Noteon 05-29-2020 Pathology Note [id number] D:127 Normal [facility] Outside Colonoscopyon 2019 Outside Colonoscopy [id number] D:127 [facility] Lab Reportson 05-25-2020 Lab Reports [id number] D:127 Normal [facility] Provider Letter FTon 05-12 Provider Letter [facility] [place], [address] [address] [place] [address] [place] [address] Re: ELIZA COELLO Date of : 1970 Thank you for your referral of Eliza Coello who was seen on consultation on May 09, 2020, for rectal bleeding, abdominal pain with bowel movements. A colonoscopy is ordered for further evaluation. I will be happy to follow Eliza. Sincerely, Corby Buitrago MD General Surgery [facility] Ambulatory Clinical Summaryo n 05-09-2020 Ambulatory Clinical Summary {[id number] Normal [facility] General Surgery Office/Clini c Noteon [...] available Patient Education Exercise to Stay Healthy, Fowf-[id number]-Urun Problem List/Past Medical History Ongoing Abdominal pain, [...] malignant neoplasm of female breast: Mother. Normal [facility] Comment on above: Result Comment: Elec [...] Document Reviewed: 07/12/2011 ExitCare? Patient Information ?2013 [employer]. Normal [facility] Physician Referralon 020 Physician Referral [id number] D:127 Normal [facility] Vital Signs Date Time Vital Sign Value Performing Clinician Ismael kunz 10-21-2023 14:00-0400 Diastolic blood pressure 72 mm[Hg] MD Josh Hong Work Phone: [facility] 10-21-2023 14:00-0400 Heart rate 77 /min MD Josh Hong Work Phone: [facility] 10-21-2023 14:00-0400 Respiratory rate 16 /min MD Josh Hong Work Phone: [facility] 10-21-2023 14:00-0400 SaO2% (BldA) [Mass fraction] 97 % MD Josh Hong Work Phone: [facility] 10-21-2023 14:00-0400 Systolic blood pressure 121 mm[Hg] MD Josh Hong Work Phone: [facility] 10-21-2023 10:52-0400 Body height 170.18 cm MD Josh Hong Work Phone: [facility] 10-21-2023 10:52-0400 Body weight 79.37 kg MD Josh Hong Work Phone: [facility] 10-03-2023 09:50-0400 Body height 170.18 cm MD Josh Hong Work Phone: [facility] 10-03-2023 09:50-0400 Body mass index (BMI) [Ratio] 28 kg/m2 MD Josh Hong Work Phone: [facility] 10-03-2023 09:50-0400 Body weight 81.19 kg MD Josh Hong Work Phone: [facility] 10-03-2023 09:50-0400 Diastolic blood pressure 79 mm[Hg] MD Josh Hong Work Phone: [facility] 10-03-2023 09:50-0400 Heart rate 74 /min MD Josh Hong Work Phone: [facility] 10-03-2023 09:50-0400 Systolic blood pressure 128 mm[Hg] MD Josh Hong Work Phone: [facility] Encounters Encounter Date Encounter Type Care Provider Facility Start: 01-08-2024 End: 01-08-2024 ambulatory REID JORGE Not Available Start: 12-26-2023 End: 12-26-2023 ambulatory MD Josh Hong Work Phone: [facility] Work Phone: Start: 12-26-2023 End: 12-26-2023 Departed Referred MD Josh Hong Work Phone: [facility] Start: 12-01-2023 End: 12-01-2023 ambulatory JAVID SHIRLEY Not Available Start: 11-06-2023 End: 11-06-2023 ambulatory JAVID SHIRLEY Not Available Start: 10-21-2023 Non-patient / Non-visit MD Bennie Hong Work Phone: [facility] Work Phone: Start: 10-21-2023 End: 10-21-2023 Admission to same day surgery center MD Josh Hong Work Phone: [facility] Work Phone: Start: 10-21-2023 End: 10-21-2023 ambulatory MD Josh Hong Work Phone: [facility] Work Phone: Start: 10-03-2023 End: 10-03-2023 Patient encounter procedure MD Josh Hong Work Phone: [facility] Work Phone: Start: 05-14-2023 End: 05-14-2023 ambulatory REID JORGE Not Available Start: 10-30-2022 End: 10-31-[address] JOSH HONG . Facility:[facility] Start: 07-04-2022 End: 07-05-[address] JAVID WATSON . Facility:[facility] Start: 06-21-2022 Encounter for preprocedural laboratory examination DR JAVID WATSON . [facility] Start: 06-20-2022 End: 06-21-[address] JAVID WATSON . Facility:[facility] Start: 06-19-2022 Encounter for preprocedural cardiovascular examination DR JAVID WATSON . [facility] Start: 06-19-2022 End: 06-20-[address] JAVID [...] Date Care Activity Detail Author Start: 10-21-2023 [facility] Patient Education Gastritis Stomach polyp s [facility] Work Phone: Payers Date Payer Category Payer Self-pay 1970 Unknown [id number] 2.16.84 [id number] 1970 Unknown [id number] 2.16.84 [id number] 1970 Unknown [id number] 2.16.84 [id number] 1970 Unknown [id number] 2.16.84 0.1.759285.3.579.2.593 1970 Unknown [id number] 2.16.84 0.1.272653.3.579.2.593 1970 Unknown [id number] 2.16.84 0.1.480187.3.579.2.593 1970 Unknown [id number] 2.16.84 0.1.380304.3.579.2.593 1970 Unknown [id number] 2.16.84 0.1.569602.3.579.2.593 1970 Unknown [id number] 2.16.84 0.1.791677.3.579.2.593 1970 Unknown [id number] 2.16.84 0.1.895020.3.579.2.593 1970 Unknown [id number] 2.16.84 0.1.741638.3.579.2.593 1970 Unknown [id number] 2.16.84 0.1.947837.3.579.2.1259 1970 Unknown [id number] 2.16.84 0.1.318151.3.579.2.1259 1970 Unknown [id number] 2.16.84 0.1.048829.3.579.2.1259 1970 Unknown [id number] 2.16.840 .1.892978.3.579.2.1259 1959 Unknown [id number] Unknown [id number] 2.16.8 40.1.503542.3.579.2.531 Unknown [id number] 2.16.8 40.1.465412.3.579.2.531 Social History Date Type Detail Facility Start[facility]23 [facility] Start: 1970 Sex Assigned At Female F [facility] Goals Date Patient Goal Desired Activity /State Procedure note 10-21-2023 Note Date & Type Note Facility 10-21-2023 Procedure note [facility] Procedure note 10-21-2023 Note Date & Type Note Facility 10-21-2023 Procedure note [facility] Clinical Note 06-20-2022 Note Date & Type Note Facility 06-20-2022 Note OPERATIVE NOTE OPERATION DATE: 06/20/2022 PROCEDURE: vNOTES hysterectomy with cystoscopy and bilateral salpingectomy. PREOPERATIVE DIAGNOSIS: Pelvic pressure, menorrhagia, dysmenorrhea, dyspareunia. POSTOPERATIVE DIAGNOSIS: Pelvic pressure, menorrhagia, dysmenorrhea, dyspareunia. ANESTHESIA: General. SURGEON: Javid Watson M.D. PIPE ORGAN TECHNICIAN: PIYUSH Howell URINE OUTPUT: Yellow and clear. [...] Sponge, lap, needle counts correct x2. [facility] Evaluation note Note Date & Type Note Facility Evaluation note Diagnosis Onset Date Abdominal pain acute Bloating acute GERD (gastroesophageal reflux disease) acute Mucus in stool acute [facility] Work Phone: History and physical note Note Date & Type Note Facility History and physical note Note Date/Time October 21, 2023 12:42pm [facility] [address] [place] [address] Gastroenterology H&P Signed Patient: Eliza Coello MR#: [id number] : 1970 Acct:[id number] Age/Sex: 52 / F Adm Date: 4 Loc: Room: Type: [facility] Attending Dr: Elizabeth Perea DO Copies [...] signed by Elizabeth Perea DO> 10/21/23 1242 [facility] Work Phone: Summary Purpose Family History No [...] section and content) DATE CREATED AUTHOR 06/15/2020 [facility] DATE CREATED AUTHOR AUTHOR'S ORGANIZ ATION 11/03/[address] [facility] DATE CREATED AUTHOR AUTHOR'S ORGANIZ ATION 01/05/2024 [facility] DATE CREATED AUTHOR AUTHOR'S ORGANIZ ATION 01/12/2024 [facility] Care Teams (unrecognized sec tion and [...] THE PRIMARY CLINICAL RECORDS. [facility] [employer] provides no warranty or guarantee of the accuracy or completeness of information in this document.
[2024-05-17 10:01] LABS: Basophils Percent Auto 0.5 % (0.2-2.0); Hematocrit 40.6 % (36.0-48.0); Hemoglobin 13.2 g/dL (12.0-16.0); Immature Granulocytes Abs Auto 0.04 10^3/uL (0.00-0.03); Immature Granulocytes Pct Auto 0.5 % (0.0-0.5); Lymphocytes Absolute Auto 1.7 10^3/uL (1.2-3.8); Lymphocytes Percent Auto 20.3 % (20.5-60.0); Mean Corpuscular HGB Conc 32.5 g/dL (29.9-35.2); Mean Corpuscular Volume 92.3 fL (81.0-99.0); Mean Platelet Volume 8.9 fL (9.5-13.5); Monocytes Absolute Auto 0.5 10^3/uL (0.3-0.8); Monocytes Percent Auto 5.8 % (1.7-12.0); Neutrophils Absolute Auto 6.2 10^3/uL (1.4-6.5); Neutrophils Percent Auto 72.9 % (43.0-75.0); Platelet Count 258 10^3/uL (150-450); White Blood Count 8.4 10^3/uL (4.0-11.0)
[2024-05-17 10:24] LABS: Thyroid Stimulating Hormone 2.469 uIU/mL (0.358-3.740)
== END 2024-05-17 09:40 | disposition home or self-care (01) ==
LOC: LAB 09:41
PROVIDERS: PCP Family Medicine; Visit Provider Physician Assistant
DX: R53.83 Other fatigue (principal)
CPT/HCPCS: 36415; 84443; 85025

== ENCOUNTER 2024-05-17 20:39 | Outpatient (REF) | payer OTHER, SELFPAY ==
--- OUTSIDE RECORDS SUMMARY | 2024-05-17 20:43 | XMS_ITS | CCD ---
Author Organization [facility] Care Team Providers Care Jig Grinder Set Up Operator Name Role Phone SHIRLEY ., DR HUA [...] Unavailable SHIRLEY ., DR HUA Admitting Unavailable [place], DR ROSSANA Teague Consulting Unavailable HOY ., [...] Unavailable ANTHONYY ., DR MORENO Admitting Unavailable [place], DR ROSSANA Teague Consulting Unavailable MD Josh Hong Primary Care Provider [phone] Ly, DO Elizabeth Perez Attending Provider Shirley, DO Hua Attending Provider [phone] Ly, Elizabeth Perez Admitting Unavailable Ly, [...] (2 sources) Fluconazole Drug Allergy 06-23-2021 [facility] Repository (1 source) levoFLOXacin Drug Allergy [facility] Rep[facility] (1 source) levoFLOXacin Drug Allergy 10-21-2023 [facility] Repository Medications Current Medications Medication [...] 2 tablets by mouth once daily Vitamin Y40-Muqbi Acid Active 2 TAB PO Daily October [...] 07-03-2022 Episodic Other aftercare (1 source) Other correction (current) drug therapy; Translations: [OTH RESIDENTIAL CURRENT DRUG THERAPY] Onset: 07-03-2022 Episodic Other aftercare (1 source) care home (current) use of oral hypoglycemic drugs; Translations: [RESIDENTIAL USE ORAL HYPOGLYCEMIC DX] Onset: 07-03-2022 Episodic [...] Test Name Value Interpretation Reference Range Facility [facility] 12-26-2023 L Specimen: [id number] Received: 12/29/23 Status: ANUSHA Collier Num: [id number] Spec Type: Surgical Subm Dr: Javid Watson Tissues: A Fallopian Tube Biopsy (RT TUBE REMNANT) Procedures: HE/2, Gross/Micro L4 Age/ Patient Sex Location Account Attending Physician Eliza Coello 53/F LABELL [id number] Javid Watson SPEC NUM: [id number] RECD: 12/29/23 STATUS: ANUSHA COLLIER NUM: [id number] CECILE: 12/26/[address]: Javid Watson ENTERED: 12/29/23 [facility] DR: Glenda,Lab SPEC TYPE: Surgical DEPT: CASIMIRO [...] fluid. No normal tubal mucosa is identified. Solar Sales Consultant sections are submitted in A1. CPT Codes 87763 Specimen: [id number] Received: 12/29/23 Status: ANUSHA Collier Num: [id number] Spec Type: Surgical Subm Dr: Javid Watson Tissues: A Fallopian Tube Biopsy (RT TUBE REMNANT) Procedures: HE/Gigi, Gross/Micro L4 Patient: Eliza Coello [id number] (Continued) Signed (signature on file) Seth Blanton MD 12/30/23 8079 Normal [facility] Kevin 10-21-2023 L Specimen: [id number] Received: 10/21/23 Status: ANUSHA Collier Num: [id number] Spec Type: Surgical Subm Dr: Elizabeth Perea DO Tissues: A Small Intestine - Biopsy/Polyp (SMALL BOWEL) B GASTRIC FOR HP (GASTRIC HP) C Gastric Biopsy (GASTRIC POLYP) Procedures: HE/6, Gross/Micro L4/3, H PYLORI, IHC First AB Age/ Patient Sex Location Account Attending Physician OumouEliza denny 52/F [id number] Elizabeth Perea DO SPEC NUM: [id number] RECD: 10/21/23 STATUS: ANUSHA COLLIER NUM: [id number] CECILE: 10/21/23- SUBM DR: Elizabeth Perea DO ENTERED: 10/21/[address] [facility] [address]: SPEC TYPE: Surgical DEPT: S [...] tissue fragment, entirely submitted in B1. Specimen: [id number] Received: 10/21/23 Status: ANUSHA Collier Num: [id number] Spec Type: Surgical Subm Dr: Elizabeth Perea DO Tissues: A Small Intestine - Biopsy/Polyp (SMALL BOWEL) B GASTRIC FOR HP (GASTRIC HP) C Gastric Biopsy (GASTRIC POLYP) Procedures: HE/6, Gross/Micro L4/3, H PYLORI, IHC First AB Patient: OumouEliza [id number] (Continued) Specimen: [id number] Received: 10/21/23 (Continued) Gross Description (Continued) Signed (signature on file) Rossana Solares MD 10/22/23 1633 Specimen: [id number] Received: 10/21/23 Status: ANUSHA Collier Num: [id number] Spec Type: Surgical Subm Dr: Elizabeth Perea DO Tissues: A Small Intestine - Biopsy/Polyp (SMALL BOWEL) B GASTRIC FOR HP (GASTRIC HP) C Gastric Biopsy (GASTRIC POLYP) Procedures: HE/6, Gross/Micro L4/3, H PYLORI, IHC First AB Patient: Eliza Coello [id number] (Continued) Specimen: [id number] Received: 10/21/23 (Continued) Gross Description (Continued) C. Further labeled gastric polyp is a 0.4 x 0.2 x 0.1 cm menjivar mucosal tissue fragment, entirely submitted in C1. Clinical history: Rule out celiac, rule out H. pylori. CPT Codes 39329x9, 43065 Specimen: [id number] Received: 10/21/23 Status: ANUSHA Collier Num: [id number] Spec Type: Surgical Subm Dr: Elizabeth Perea, DO Tissues: A Small Intestine - Biopsy/Polyp (SMALL BOWEL) B GASTRIC FOR HP (GASTRIC HP) C Gastric Biopsy (GASTRIC POLYP) Procedures: HE/6, Gross/Micro L4/3, H PYLORI, IHC First AB Patient: OumouEliza Sharonda [id number] (Continued) Signed (signature on file) Rossana Solares MD 10/22/23 1633 Normal [facility] VC VENOUS REFLUX RT [facility] VC VENOUS REFLUX RT [facility] Patient: ROBERT COELLOFLASH Mcdonough. Exam Date: 10/30/2022 : 1970 Gender:F Ordering : DR JOSH HONG . Admission #: [id number] Family : Order #: [id number] CLICK HERE TO VIEW EXAM RADIOLOGY REPORT [...] Compressibility: Normal. Flow: Moderate deep venous reflux. Roll Up Machine Operator: None. Tech Note: Incompetent varicose [...] MD on 10/30/2022 at 12:59 Normal [facility] CBC AUTO DIFFon 07-04-2022 BASO # 0.1 103/ul Normal 0.0-0.1 [facility] Comment on above: Performed By: #### T SH #### [facility] [address] [address] [address] Marlene Blanton Basophils/100 WBC (Bld) 0.6 % Normal 0.2-2.0 [facility] Comment on above: Performed By: #### T SH #### [facility] [address] [address] [address] Marlene Blanton EO # 0.0 103/ul Normal 0.0-0.7 [facility] Comment on above: Performed By: #### T SH #### [facility] [address] [address] [address] Marlene Blanton Eosinophils/100 WBC (Bld) 0.0 % Critically low 0.9-7.0 [facility] Comment on above: Performed By: #### T SH #### [facility] [address] [place] [address] Dr. Marlene Blanton Erythrocyte distribution width (RBC) [Ratio] 13.3 % Normal 11.0-15.0 [facility] Comment on above: Performed By: #### T SH #### [facility] [address] [place] [address] Dr. Marlene Blanton Hematocrit (Bld) [Volume fraction] 42.3 % Normal 36.0-48.0 [facility] Comment on above: Performed By: #### T SH #### [facility] [address] [place] [address] Dr. Marlene Blanton Hemoglobin (Bld) [Mass/Vol] 13.0 g/dL Normal 12.0-16.0 [facility] Comment on above: Performed By: #### T SH #### [facility] [address] [place] [address] Dr. Marlene Blanton IG # 0.04 10e3/ul Critically high 0.00-0.03 [facility] Comment on above: Performed By: #### T SH #### [facility] [address] [place] [address] Dr. Marlene Blanton IG % 0.4 % Normal 0.0-0.5 [facility] Comment on above: Performed By: #### T SH #### [facility] [address] [place] [address] Dr. Marlene Blanton LYMPH # 2.0 103/ul Normal 1.2-3.8 [facility] Comment on above: Performed By: #### T SH #### [facility] [address] [place] [address] Dr. Marlene Blanton Lymphocytes/100 WBC (Bld) 19.0 % Critically low 20.5-60.0 [facility] Comment on above: Performed By: #### T SH #### [facility] [address] [place] [address] Dr. Marlene Blanton MANUAL DIFF REQ NO Normal [facility] Comment on above: Performed By: #### T SH #### [facility] [address] [place] [address] Dr. Marlene Blanton MCH (RBC) [Entitic mass] 29.6 pg Normal 26.7-34.0 [facility] Comment on above: Performed By: #### T SH #### [facility] [address] [place] [address] Dr. Marlene Blatnon MCHC (RBC) [Mass/Vol] 30.7 g/dL Normal 29.9-35.2 [facility] Comment on above: Performed By: #### T SH #### [facility] [address] [address] [address] Marlene Blanton MCV (RBC) [Entitic vol] 96.4 fL Normal 81.0-99.0 [facility] Comment on above: Performed By: #### T SH #### [facility] [address] [place] [address] Dr. Marlene Blanton MONO # 0.7 103/ul Normal 0.3-0.8 [facility] Comment on above: Performed By: #### T SH #### [facility] [address] [place] [address] Dr. Marlene Blanton Monocytes/100 WBC (Bld) 6.6 % Normal 1.7-12.0 [facility] Comment on above: Performed By: #### T SH #### [facility] [address] [place] [address] Dr. Marlene Blanton NEUT # 7.7 103/ul Critically high 1.4-6.5 [facility] Comment on above: Performed By: #### T SH #### [facility] [address] [place] [address] Dr. Marlene Blanton Neutrophils/100 WBC (Bld) 73.4 % Normal 43.0-75.0 [facility] Comment on above: Performed By: #### T SH #### [facility] [address] [place] [address] Dr. Marlene Blanton Platelet mean volume (Bld) [Entitic vol] 8.9 fL Critically low 9.5-13.5 [facility] Comment on above: Performed By: #### T SH #### [facility] [address] [place] [address] Dr. Marlene Blanton PLT 288 103/ul Normal 150-450 [facility] Comment on above: Performed By: #### T SH #### [facility] [address] [place] [address] Dr. Marlene Blanton RBC 4.39 106/ul Normal 4.20-5.40 [facility] Comment on above: Performed By: #### T SH #### [facility] [address] [place] [address] Dr. Marlene Blanton WBC 10.5 103/ul Normal 4.0-11.0 [facility] Comment on above: Performed By: #### T SH #### [facility] [address] [place] [address] Dr. Marlene Blanton FREE T4on 07-04-2022 Free T4 [Mass/Vol] 0.98 ng/dL Normal 0.76-1.46 [facility] Comment on above: Performed By: #### F T4 #### [facility] [address] [place] [address] Dr. Marlene Blanton PROTIMEon 07-04-2022 INR Coag (PPP) [Relative time] 0.95 {INR} Normal [facility] Comment on above: Performed By: #### P T, PTT #### [facility] [address] [place] [address] Dr. Marlene Blanton INR GUIDELINES SEE BELOW Normal [facility] Comment on above: Result Comment: GLEN RED INR: 2.0 - 3.0 CONDITIONS NOT LISTED BELOW 2.5 - 3.5 FOR PROSTHETIC HEART VALVE REPLACEMENT 2.5 - 3.5 RECURRENT THROMBOSIS Performed By: #### P T, PTT #### [facility] [address] [place] [address] Dr. Marlene Blanton PT Coag (PPP) [Time] 10.1 s Normal 9.0-11.6 [facility] Comment on above: Performed By: #### P T, PTT #### [facility] [address] [place] [address] Dr. Marlene Blanton PTTon 07-04-2022 aPTT Coag (Bld) [Time] 27.2 s Normal 22.3-36.2 [facility] Comment on above: Performed By: #### P T, PTT #### [facility] [address] [place] [address] Dr. Marlene Blanton TSHon 07-04-2022 TSH 1.916 uIU/mL Normal 0.358-3.740 [facility] Comment on above: Performed By: #### T SH #### [facility] [address] [place] [address] Dr. Marlene Blanton BUNon 06-21-2022 Urea nitrogen [Mass/Vol] 8.0 mg/dL Normal 7.0-18.0 [facility] Comment on above: Performed By: #### C BC #### [facility] [address] [place] [address] Dr. Marlene Blanton CBC AUTO DIFFon 06-21-2022 BASO # 0.0 103/ul Normal 0.0-0.1 [facility] Comment on above: Performed By: #### T SH #### [facility] [address] [place] [address] Dr. Marlene Blanton Basophils/100 WBC (Bld) 0.2 % Normal 0.2-2.0 [facility] Comment on above: Performed By: #### T SH #### [facility] [address] [place] [address] Dr. Marlene Blanton EO # 0.0 103/ul Normal 0.0-0.7 [facility] Comment on above: Performed By: #### T SH #### [facility] [address] [place] [address] Dr. Marlene Blanton Eosinophils/100 WBC (Bld) 0.1 % Critically low 0.9-7.0 [facility] Comment on above: Performed By: #### T SH #### [facility] [address] [place] [address] Dr. Marlene Blanton Erythrocyte distribution width (RBC) [Ratio] 13.4 % Normal 11.0-15.0 [facility] Comment on above: Performed By: #### T SH #### [facility] [address] [place] [address] Dr. Marlene Blanton Hematocrit (Bld) [Volume fraction] 33.6 % Critically low 36.0-48.0 [facility] Comment on above: Performed By: #### T SH #### [facility] [address] [place] [address] Dr. Marlene Blanton Hemoglobin (Bld) [Mass/Vol] 10.8 g/dL Critically low 12.0-16.0 [facility] Comment on above: Result Comment: post surgery Performed By: #### T SH #### [facility] [address] [place] [address] Dr. Marlene Blanton IG # 0.06 10e3/ul Critically high 0.00-0.03 [facility] Comment on above: Performed By: #### T SH #### [facility] [address] [place] [address] Dr. Marlene Blanton IG % 0.5 % Normal 0.0-0.5 [facility] Comment on above: Performed By: #### T SH #### [facility] [address] [place] [address] Dr. Marlene Blanton LYMPH # 2.0 103/ul Normal 1.2-3.8 [facility] Comment on above: Performed By: #### T SH #### [facility] [address] [place] [address] Dr. Marlene Blanton Lymphocytes/100 WBC (Bld) 16.1 % Critically low 20.5-60.0 [facility] Comment on above: Performed By: #### T SH #### [facility] [address] [place] [address] Dr. Marlene Blanton MANUAL DIFF REQ NO Normal [facility] Comment on above: Performed By: #### T SH #### [facility] [address] [place] [address] Dr. Marlene Blanton MCH (RBC) [Entitic mass] 29.0 pg Normal 26.7-34.0 [facility] Comment on above: Performed By: #### T SH #### [facility] [address] [place] [address] Dr. Marlene Blanton MCHC (RBC) [Mass/Vol] 32.1 g/dL Normal 29.9-35.2 [facility] Comment on above: Performed By: #### T SH #### [facility] [address] [address] [address] Marlene Blanton MCV (RBC) [Entitic vol] 90.1 fL Normal 81.0-99.0 [facility] Comment on above: Performed By: #### T SH #### [facility] [address] [address] [address] Marlene Blanton MONO # 0.7 103/ul Normal 0.3-0.8 [facility] Comment on above: Performed By: #### T SH #### [facility] [address] [place] [address] Dr. Marlene Blanton Monocytes/100 WBC (Bld) 5.3 % Normal 1.7-12.0 [facility] Comment on above: Performed By: #### T SH #### [facility] [address] [place] [address] Dr. Marlene Blanton NEUT # 9.7 103/ul Critically high 1.4-6.5 [facility] Comment on above: Performed By: #### T SH #### [facility] [address] [place] [address] Dr. Marlene Blanton Neutrophils/100 WBC (Bld) 77.8 % Critically high 43.0-75.0 [facility] Comment on above: Performed By: #### T SH #### [facility] [address] [place] [address] Dr. Marlene Blanton Platelet mean volume (Bld) [Entitic vol] 8.5 fL Critically low 9.5-13.5 [facility] Comment on above: Performed By: #### T SH #### [facility] [address] [place] [address] Dr. Marlene Blanton PLT 248 103/ul Normal 150-450 [facility] Comment on above: Performed By: #### T SH #### [facility] [address] [place] [address] Dr. Marlene Blanton RBC 3.73 106/ul Critically low 4.20-5.40 [facility] Comment on above: Performed By: #### T SH #### [facility] [address] [place] [address] Dr. Marlene Blanton WBC 12.4 103/ul Critically high 4.0-11.0 [facility] [place] Comment on above: Performed By: #### T SH #### [facility] [address] [place] [address] Dr. Marlene Blanton CREATININEon 06-21-2022 Creatinine [Mass/Vol] 0.87 mg/dL Normal 0.55-1.02 [facility] Comment on above: Performed By: #### C BC #### [facility] [address] [place] [address] Dr. Marlene Blanton EGFR-AF JAMA[place] >60 Normal >=60 [facility] [place] Comment on above: Performed By: #### C BC #### [facility] [address] [place] [address] Dr. Marlene Blanton EGFR-NON AF J[place] >60 Normal >=60 [facility] Comment on above: Performed By: #### C BC #### [facility] [address] [place] [address] Dr. Marlene Blanton CBC AUTO DIFFon 06-19-2022 BASO # 0.1 103/ul Normal 0.0-0.1 [facility] Comment on above: Performed By: #### C BC #### [facility] [address] [place] [address] Dr. Marlene Blanton Basophils/100 WBC (Bld) 0.5 % Normal 0.2-2.0 [facility] Comment on above: Performed By: #### C BC #### [facility] [address] [place] [address] Dr. Marlene Blanton EO # 0.0 103/ul Normal 0.0-0.7 [facility] Comment on above: Performed By: #### C BC #### [facility] [address] [place] [address] Dr. Marlene Blanton Eosinophils/100 WBC (Bld) 0.1 % Critically low 0.9-7.0 [facility] Comment on above: Performed By: #### C BC #### [facility] [address] [place] [address] Dr. Marlene Blanton Erythrocyte distribution width (RBC) [Ratio] 13.4 % Normal 11.0-15.0 [facility] Comment on above: Performed By: #### C BC #### [facility] [address] [place] [address] Dr. Marlene Blanton Hematocrit (Bld) [Volume fraction] 39.8 % Normal 36.0-48.0 [facility] Comment on above: Performed By: #### C BC #### [facility] [address] [place] [address] Dr. Marlene Blanton Hemoglobin (Bld) [Mass/Vol] 13.2 g/dL Normal 12.0-16.0 [facility] Comment on above: Performed By: #### C BC #### [facility] [address] [place] [address] Dr. Marlene Blanton IG # 0.05 10e3/ul Critically high 0.00-0.03 [facility] Comment on above: Performed By: #### C BC #### [facility] [address] [place] [address] Dr. Marlene Blanton IG % 0.5 % Normal 0.0-0.5 [facility] Comment on above: Performed By: #### C BC #### [facility] [address] [place] [address] Dr. Marlene Blanton LYMPH # 2.4 103/ul Normal 1.2-3.8 [facility] Comment on above: Performed By: #### C BC #### [facility] [address] [place] [address] Dr. Marlene Blanton Lymphocytes/100 WBC (Bld) 24.7 % Normal 20.5-60.0 [facility] Comment on above: Performed By: #### C BC #### [facility] [address] [place] [address] Dr. Marlene Blanton MANUAL DIFF REQ NO Normal [facility] Comment on above: Performed By: #### C BC #### [facility] [address] [place] [address] Dr. Marlene Blanton MCH (RBC) [Entitic mass] 29.7 pg Normal 26.7-34.0 [facility] Comment on above: Performed By: #### C BC #### [facility] [address] [place] [address] Dr. Marlene Blanton MCHC (RBC) [Mass/Vol] 33.2 g/dL Normal 29.9-35.2 [facility] Comment on above: Performed By: #### C BC #### [facility] [address] [place] [address] Dr. Marlene Blanton MCV (RBC) [Entitic vol] 89.4 fL Normal 81.0-99.0 [facility] Comment on above: Performed By: #### C BC #### [facility] [address] [place] [address] Dr. Marlene Blanton MONO # 0.8 103/ul Normal 0.3-0.8 [facility] Comment on above: Performed By: #### C BC #### [facility] [address] [place] [address] Dr. Marlene Blanton Monocytes/100 WBC (Bld) 7.9 % Normal 1.7-12.0 [facility] Comment on above: Performed By: #### C BC #### [facility] [address] [place] [address] Dr. Marlene Blanton NEUT # 6.3 103/ul Normal 1.4-6.5 [facility] Comment on above: Performed By: #### C BC #### [facility] [address] [place] [address] Dr. Marlene Blanton Neutrophils/100 WBC (Bld) 66.3 % Normal 43.0-75.0 [facility] Comment on above: Performed By: #### C BC #### [facility] [address] [place] [address] Dr. Marlene Blanton Platelet mean volume (Bld) [Entitic vol] 8.3 fL Critically low 9.5-13.5 [facility] Comment on above: Performed By: #### C BC #### [facility] [address] [address] [address] Marlene Blanton PLT 300 103/ul Normal 150-450 [facility] Comment on above: Performed By: #### C BC #### [facility] [address] [address] [address] Marlene Blanton RBC 4.45 106/ul Normal 4.20-5.40 [facility] Comment on above: Performed By: #### C BC #### [facility] [address] [address] [address] Marlene Blanton WBC 9.6 103/ul Normal 4.0-11.0 [facility] Comment on above: Performed By: #### C BC #### [facility] [address] [place] [address] Dr. Marlene Blanton PREG QUANT HCGon 06-19-2022 HCG QUANT 1 mIU/mL Normal [facility] Comment on above: Performed By: #### P REGQNT #### [facility] [address] [place] [address] Dr. Marlene Blanton HCG RANGE SEE BELOW Normal [facility] Comment on above: Result Comment: 5-50 0.2-1 WEEK 50-500 1-2 WEEKS 100-5,000 2-3 WEEKS 500-10,000 3-4 WEEKS 1,000-50,000 4-5 WEEKS 10,000-100,000 5-6 WEEKS 15,000-200,000 6-8 WEEKS 10,000-100,000 2-3 MONTHS Performed By: #### P REGQNT #### [facility] [address] [address] [address] Marlene Blanton TYPE AND SCREENon 06-19-2022 TYPE AND SCREEN Negative Normal [facility] Comment on above: Performed By: #### C BC #### [facility] [address] [place] [address] Dr. Marlene Blanton ASYMPTOMATIC COVID-19 ANTIGE Non 05-28-2022 EUA Statement SEE BELOW Normal [facility] Comment on above: Result Comment: [...] sooner. Performed By: #### C BC #### [facility] [address] [place] [address] Dr. Marlene Blanton SARS-CoV-2 (COVID-19) RNA [place]+probe Ql (Unsp spec) Positive Critically abnormal NEGATIVE [facility] Comment on above: Result Comment: SARS -CoV-2 antigen present; does not rule out coinfection with other pathogens. Performed By: #### C BC #### [facility] [address] [address] [address] Marlene Blanton [facility]on 04[facility]24 SARS-CoV-2 (COVID-19) RNA [place]+probe Ql (Unsp spec) Detected Critically abnormal NOT DETECTED [facility] Comment on above: Result Comment: This test is not yet approved or cleared by the [place] FDA. When there are no FDA-approved or cleared tests available, and other criteria are met, FDA can make tests available under an emergency access mechanism called an Emergency Use Authorization (EUA). The EUA for this test is supported by the [employer] of Health and Human Service's declaration that [...] used). Performed By: #### C VDTBH #### [facility] [address] [place] [address] Dr. Marlene Blanton PAP ACOG PANEL 2: 30 to 65on 05-15-2022 . . Normal [facility] Comment on above: Result Comment: Perf ormed at: WB Performed By: #### [id number] #### [facility] [address] [place] [address] Dr. Marlene Blanton Age Gdln ACOG Testing 30-65 Normal [facility] Comment on above: Performed By: #### 4 [id number] #### [facility] [address] [place] [address] Dr. Marlene Blanton DIAGNOSIS: Comment Normal [facility] Comment on above: Result Comment: NEGA TIVE FOR INTRAEPITHELIAL LESION OR MALIGNANCY. FUNGAL ORGANISMS MORPHOLOGICALLY CONSISTENT WITH BAILEY SPECIES ARE PRESENT. Performed at: WB Performed By: #### [id number] #### [facility] [address] [place] [address] Dr. Marlene Blanton HPV Aptima Negative Normal Negative [facility] Comment on above: Result Comment: This nucleic acid amplification test detects fourteen high-risk HPV types (16,18,31,33,35,39,45,51,52,56,58,59,66,68) without differentiation. Performed at: =G Performed By: #### [id number] #### [facility] [address] [place] [address] Dr. Marlene Blanton HPV Genotype Reflex Comment Normal [facility] Comment on above: Result Comment: Crit eria not met, HPV Genotype not performed. Performed at: WB Performed By: #### [id number] #### [facility] [address] [place] [address] Dr. Marlene Blanton Methodology: Comment Normal [facility] Comment on above: Result Comment: This liquid based ThinPrep(R) pap test was screened with the use of an image guided system. Performed at: WB Performed By: #### 4 [id number] #### [facility] [address] [place] [address] Dr. Marlene Blanton Note: Comment Normal The [...] Performed at: WB Performed By: #### [id number] #### [facility] [address] [address] [address] Marlene Blanton Performed by: Comment Normal [facility] Comment on above: Result Comment: Marycruz Gillespie Manager Investigations (ASCP) Performed at: WB Performed By: #### 4 [id number] #### [facility] [address] [address] [address] Marlene Blanton Specimen adequacy: Comment Normal [facility] Comment on above: Result Comment: Sati sfactory for evaluation. No endocervical component is identified. Performed at: WB Performed By: #### 4 [id number] #### [facility] [address] [address] [address] Marlene Blanton MG MAMM SCREEN 3D JENNIFER CADon 05-14-2022 MG MAMM SCREEN 3D JENNIFER CAD Patient: ELIZA COELLO Exam Date: 05/14/2022 : 1970 Gender:F Ordering : DR JAVID WATSON . Admission #: [id number] Family : DR JOSH HONG . Order #: [id number] CLICK HERE TO VIEW EXAM RADIOLOGY REPORT [...] melanoma cancer at age 19. LOCATION: [facility] BREAST COMPOSITION: Heterogeneously dense,which may obscure [...] M.D. on 05/14/2022 at 14:48 Normal [facility] US PELVIS AND TRANSVAGon US PELVIS [...] ROSSANA VELÁSQUEZ Date: 2022-05-09 13:04 Normal [facility] CBC AUTO DIFFon 05-08-2022 BASO # 0.1 103/ul Normal 0.0-0.1 [facility] Comment on above: Performed By: #### T SH #### [facility] [address] [place] [address] Dr. Marlene Blanton Basophils/100 WBC (Bld) 0.7 % Normal 0.2-2.0 [facility] Comment on above: Performed By: #### T SH #### [facility] [address] [place] [address] Dr. Marlene Blanton EO # 0.0 103/ul Normal 0.0-0.7 [facility] Comment on above: Performed By: #### T SH #### [facility] [address] [place] [address] Dr. Marlene Blanton Eosinophils/100 WBC (Bld) 0.0 % Critically low 0.9-7.0 [facility] Comment on above: Performed By: #### T SH #### [facility] [address] [place] [address] Dr. Marlene Blanton Erythrocyte distribution width (RBC) [Ratio] 13.4 % Normal 11.0-15.0 [facility] Comment on above: Performed By: #### T SH #### [facility] [address] [place] [address] Dr. Marlene Blanton Hematocrit (Bld) [Volume fraction] 42.1 % Normal 36.0-48.0 [facility] Comment on above: Performed By: #### T SH #### [facility] [address] [place] [address] Dr. Marlene Blanton Hemoglobin (Bld) [Mass/Vol] 13.8 g/dL Normal 12.0-16.0 [facility] Comment on above: Performed By: #### T SH #### [facility] [address] [place] [address] Dr. Marlene Blanton IG # 0.04 10e3/ul Critically high 0.00-0.03 [facility] Comment on above: Performed By: #### T SH #### [facility] [address] [place] [address] Dr. Marlene Blanton IG % 0.4 % Normal 0.0-0.5 [facility] Comment on above: Performed By: #### T SH #### [facility] [address] [place] [address] Dr. Marlene Blanton LYMPH # 2.1 103/ul Normal 1.2-3.8 [facility] Comment on above: Performed By: #### T SH #### [facility] [address] [place] [address] Dr. Marlene Blanton Lymphocytes/100 WBC (Bld) 23.3 % Normal 20.5-60.0 [facility] Comment on above: Performed By: #### T SH #### [facility] [address] [place] [address] Dr. Marlene Blanton MANUAL DIFF REQ NO Normal [facility] Comment on above: Performed By: #### T SH #### [facility] [address] [place] [address] Dr. Marlene Blanton MCH (RBC) [Entitic mass] 29.3 pg Normal 26.7-34.0 [facility] Comment on above: Performed By: #### T SH #### [facility] [address] [place] [address] Dr. Marlene Blanton MCHC (RBC) [Mass/Vol] 32.8 g/dL Normal 29.9-35.2 [facility] Comment on above: Performed By: #### T SH #### [facility] [address] [place] [address] Dr. Marlene Blanton MCV (RBC) [Entitic vol] 89.4 fL Normal 81.0-99.0 [facility] Comment on above: Performed By: #### T SH #### [facility] [address] [place] [address] Dr. Marlene Blanton MONO # 0.7 103/ul Normal 0.3-0.8 [facility] Comment on above: Performed By: #### T SH #### [facility] [address] [place] [address] Dr. Marlene Blanton Monocytes/100 WBC (Bld) 7.3 % Normal 1.7-12.0 [facility] Comment on above: Performed By: #### T SH #### [facility] [address] [place] [address] Dr. Marlene Blanton NEUT # 6.1 103/ul Normal 1.4-6.5 [facility] Comment on above: Performed By: #### T SH #### [facility] [address] [place] [address] Dr. Marlene Blanton Neutrophils/100 WBC (Bld) 68.3 % Normal 43.0-75.0 [facility] Comment on above: Performed By: #### T SH #### [facility] [address] [place] [address] Dr. Marlene Blanton Platelet mean volume (Bld) [Entitic vol] 8.8 fL Critically low 9.5-13.5 [facility] Comment on above: Performed By: #### T SH #### [facility] [address] [place] [address] Dr. Marlene Blanton PLT 310 103/ul Normal 150-450 [facility] Comment on above: Performed By: #### T SH #### [facility] [address] [place] [address] Dr. Marlene Blanton RBC 4.71 106/ul Normal 4.20-5.40 [facility] Comment on above: Performed By: #### T SH #### [facility] [address] [place] [address] Dr. Marlene Blanton WBC 9.0 103/ul Normal 4.0-11.0 [facility] Comment on above: Performed By: #### T SH #### [facility] [address] [place] [address] Dr. Marlene Blanton FREE T4on 05-08-2022 Free T4 [Mass/Vol] 1.09 ng/dL Normal 0.76-1.46 [facility] Comment on above: Performed By: #### T SH #### [facility] [address] [place] [address] Dr. Marlene Blanton PREG QUANT HCGon 05-08-2022 HCG QUANT 1 mIU/mL Normal [facility] Comment on above: Performed By: #### T SH, PREGQNT #### [facility] [address] [place] [address] Dr. Marlene Blanton HCG RANGE SEE BELOW Normal [facility] Comment on above: Result Comment: 5-50 0.2-1 WEEK 50-500 1-2 WEEKS 100-5,000 2-3 WEEKS 500-10,000 3-4 WEEKS 1,000-50,000 4-5 WEEKS 10,000-100,000 5-6 WEEKS 15,000-200,000 6-8 WEEKS 10,000-100,000 2-3 MONTHS Performed By: #### T SH, PREGQNT #### [facility] [address] [place] [address] Dr. Marlene Blanton PROTIMEon 05-08-2022 INR Coag (PPP) [Relative time] 0.95 {INR} Normal [facility] Comment on above: Performed By: #### C BC #### [facility] [address] [place] [address] Dr. Marlene Blanton INR GUIDELINES SEE BELOW Normal [facility] Comment on above: Result Comment: GLEN RED INR: 2.0 - 3.0 CONDITIONS NOT LISTED BELOW 2.5 - 3.5 FOR PROSTHETIC HEART VALVE REPLACEMENT 2.5 - 3.5 RECURRENT THROMBOSIS Performed By: #### C BC #### [facility] [address] [place] [address] Dr. Marlene Blanton PT Coag (PPP) [Time] 10.3 s Normal 9.0-11.6 [facility] Comment on above: Performed By: #### C BC #### [facility] [address] [place] [address] Dr. Marlene Blanton PTTon 05-08-2022 aPTT Coag (Bld) [Time] 26.3 s Normal 22.3-36.2 [facility] Comment on above: Performed By: #### C BC #### [facility] [address] [place] [address] Dr. Marlene Blanton TSHon 05-08-2022 TSH 4.001 uIU/mL Critically high 0.358-3.740 [facility] Comment on above: Performed By: #### T SH, PREGQNT #### [facility] [address] [place] [address] Dr. Marlene Blanton Reminderson 06-01-2020 Reminders - From: Jesenia Price LPN To: GSN - Clinical; Sent: 06/01/2020 08:20:44 EST Show up: 04/24/2030 09:00:00 EDT Subject: colonoscopy recall Due Date/Time: 05/24/2030 09:00:00 EST Reminder/Recall Patient is due for screening colonoscopy 05/24/2030. Normal [facility] Ambulatory Clinical Summaryo n 05-31-2020 Ambulatory Clinical Summary {[id number]}CD:[id number] Normal [place] [facility] General Surgery Office/Clini c Noteon 05-31-2020 [...] Salguero Only if needed [address] [place] [address]- Additional Instructions: Problem List/Past Medical History Ongoing [...] Primary malignant neoplasm of female breast: Mother. [facility] Comment on above: Result Comment: Elec tronically Signed By: GABRIEL LAUREN, Corby Salguero\.layla\Date and Time Signed: 05/31/20 16:31 EST Pathology Noteon 05-29-2020 Pathology Note [id number] D:127 Normal [facility] Outside Colonoscopyon 2019 Outside Colonoscopy [id number] D:127 [facility] Lab Reportson 05-25-2020 Lab Reports [id number] D:127 Normal [facility] Provider Letter FTon 05-12 Provider Letter [facility] Josh Hong, [address] [place] [address] [place] [address] Re: ELIZA COELLO Date of : 1970 Thank you for your referral of Eliza Coello who was seen on consultation on May 09, 2020, for rectal bleeding, abdominal pain with bowel movements. A colonoscopy is ordered for further evaluation. I will be happy to follow Eliza. Sincerely, Corby Buitrago MD General Surgery [facility] Ambulatory Clinical Summaryo n 05-09-2020 Ambulatory Clinical Summary {[id number]}CD:[id number] Normal [place] [facility] General Surgery Office/Clini c Noteon 05-09-2020 [...] available Patient Education Exercise to Stay Healthy, Ncti-bm-Aamw Problem List/Past Medical History Ongoing Abdominal pain, [...] malignant neoplasm of female breast: Mother. Normal [facility] Comment on above: Result Comment: Elec [...] Document Reviewed: 07/12/2011 ExitCare? Patient Information ?2013 [employer]. Normal [facility] Physician Referralon 020 Physician Referral [id number] D:127 Normal [facility] Vital Signs Date Time Vital Sign Value Performing Clinician Ismael kunz 10-21-2023 14:00-0400 Diastolic blood pressure 72 mm[Hg] MD Josh Hong Work Phone: [facility] 10-21-2023 14:00-0400 Heart rate 77 /min MD Josh Hong Work Phone: [facility] 10-21-2023 14:00-0400 Respiratory rate 16 /min MD Josh Hong Work Phone: [facility] 10-21-2023 14:00-0400 SaO2% (BldA) [Mass fraction] 97 % MD Josh Hong Work Phone: [facility] 10-21-2023 14:00-0400 Systolic blood pressure 121 mm[Hg] MD Josh Hong Work Phone: [facility] 10-21-2023 10:52-0400 Body height 170.18 cm MD Josh Hong Work Phone: [facility] 10-21-2023 10:52-0400 Body weight 79.37 kg MD Josh Hong Work Phone: [facility] 10-03-2023 09:50-0400 Body height 170.18 cm MD Josh Hong Work Phone: [facility] 10-03-2023 09:50-0400 Body mass index (BMI) [Ratio] 28 kg/m2 MD Josh Hong Work Phone: [facility] 10-03-2023 09:50-0400 Body weight 81.19 kg MD Josh Hong Work Phone: [facility] 10-03-2023 09:50-0400 Diastolic blood pressure 79 mm[Hg] MD Josh Hong Work Phone: [facility] 10-03-2023 09:50-0400 Heart rate 74 /min MD Josh Hong Work Phone: [facility] 10-03-2023 09:50-0400 Systolic blood pressure 128 mm[Hg] MD Josh Hong Work Phone: [facility] Encounters Encounter Date Encounter Type Care Provider Facility Start: 01-08-2024 End: 01-08-2024 ambulatory REID JORGE Not Available Start: 12-26-2023 End: 12-26-2023 ambulatory MD Josh Hong Work Phone: [facility] Work Phone: Start: 12-26-2023 End: 12-26-2023 Departed Referred MD Josh Hong Work Phone: [facility] Start: 12-01-2023 End: 12-01-2023 ambulatory JAVID SHIRLEY Not Available Start: 11-06-2023 End: 11-06-2023 ambulatory JAVID SHIRLEY Not Available Start: 10-21-2023 Non-patient / Non-visit MD Bennie Hong Work Phone: [facility] Work Phone: Start: 10-21-2023 End: 10-21-2023 Admission to same day surgery center MD Josh Hong Work Phone: [facility] Work Phone: Start: 10-21-2023 End: 10-21-2023 ambulatory MD Josh Hong Work Phone: [facility] Work Phone: Start: 10-03-2023 End: 10-03-2023 Patient encounter procedure MD Josh Hong Work Phone: [facility] Work Phone: Start: 05-14-2023 End: 05-14-2023 ambulatory REID JORGE Not Available Start: 10-30-2022 End: 10-31-[address] JOSH HONG . Facility:[facility] Start: 07-04-2022 End: 07-05-[address] JAVID WATSON . Facility:[facility] Start: 06-21-2022 Encounter for preprocedural laboratory examination DR JAVID WATSON . [facility] Start: 06-20-2022 End: 06-21-[address] JAVID WATSON . Facility:[facility] Start: 06-19-2022 Encounter for preprocedural cardiovascular examination DR JAVID WATSON . [facility] Start: 06-19-2022 End: 06-20-[address] [...] Date Care Activity Detail Author Start: 10-21-2023 [facility] Patient Education Gastritis Stomach polyp s [facility] Work Phone: Payers Date Payer Category Payer Self-pay 1970 Unknown [id number] 2.16.84 [id number] 1970 Unknown [id number] 2.16.84 0.1.087691.3.579.2.593 1970 Unknown [id number] 2.16.84 0.1.813376.3.579.2.593 1970 Unknown [id number] 2.16.84 0.1.995856.3.579.2.593 1970 Unknown [id number] 2.16.84 0.1.545979.3.579.2.593 1970 Unknown [id number] 2.16.84 0.1.449068.3.579.2.593 1970 Unknown [id number] 2.16.84 0.1.895720.3.579.2.593 1970 Unknown [id number] 2.16.84 0.1.221587.3.579.2.593 1970 Unknown [id number] 2.16.84 0.1.834414.3.579.2.593 1970 Unknown [id number] 2.16.84 0.1.180645.3.579.2.593 1970 Unknown [id number] 2.16.84 0.1.839535.3.579.2.593 1970 Unknown [id number] 2.16.84 0.1.873067.3.579.2.1259 1970 Unknown [id number] 2.16.84 0.1.187673.3.579.2.1259 1970 Unknown [id number] 2.16.84 0.1.926679.3.579.2.1259 1970 Unknown [id number] 2.16.840 .1.090817.3.579.2.1259 1959 Unknown [id number] Unknown [id number] 2.16.8 40.1.697561.3.579.2.531 Unknown [id number] 2.16.8 40.1.673675.3.579.2.531 Social History Date Type Detail Facility [facility]: [facility] Start: 1970 Sex Assigned At Female F [facility] Goals Date Patient Goal Desired Activity /State Procedure note 10-21-2023 Note Date & Type Note Facility 10-21-2023 Procedure note [facility] Procedure note 10-21-2023 Note Date & Type Note Facility 10-21-2023 Procedure note [facility] Clinical Note 06-20-2022 Note Date & Type Note Facility 06-20-2022 Note OPERATIVE NOTE OPERATION DATE: 06/20/2022 PROCEDURE: vNOTES hysterectomy with cystoscopy and bilateral salpingectomy. PREOPERATIVE DIAGNOSIS: Pelvic pressure, menorrhagia, dysmenorrhea, dyspareunia. POSTOPERATIVE DIAGNOSIS: Pelvic pressure, menorrhagia, dysmenorrhea, dyspareunia. ANESTHESIA: General. SURGEON: Javid Watson M.D. PLANS EXAMINER: PIYUSH Howell URINE OUTPUT: Yellow and clear. [...] attachments of the uterus were secured with Antaly clamps and suture ligated. The retractors were [...] Sponge, lap, needle counts correct x2. [facility] Evaluation note Note Date & Type Note Facility Evaluation note Diagnosis Onset Date Abdominal pain acute Bloating acute GERD (gastroesophageal reflux disease) acute Mucus in stool acute [facility] Work Phone: History and physical note Note Date & Type Note Facility History and physical note Note Date/Time October 21, 2023 12:42pm [facility] [address] [place] [address] Gastroenterology H&P Signed Patient: Eliza Coello MR#: [id number] : 1970 Acct:[id number] Age/Sex: 52 / F Adm Date: 4 Loc: Room: Type: [facility] Attending Dr: Elizabeth Perea DO Copies [...] Elizabeth Perea DO> 10/21/23 1242 [facility] Work Phone: Summary Purpose Family [...] section and content) DATE CREATED AUTHOR 06/15/2020 [facility] DATE CREATED AUTHOR AUTHOR'S ORGANIZ ATION 11/03/2022 [facility] DATE CREATED AUTHOR AUTHOR'S ORGANIZ ATION 01/05/2024 [facility] DATE CREATED AUTHOR AUTHOR'S ORGANIZ ATION 01/12/2024 [facility] Care Teams (unrecognized sec tion and content) Team Status: Active Member Role Status Dates Josh Hnog MD Primary Care Provider Active Team Status: [...] BE BASED ON THE PRIMARY CLINICAL RECORDS. [facility] [employer] provides no warranty or guarantee of the accuracy or completeness of information in this document.
== END 2024-05-17 20:40 | disposition home or self-care (01) ==
LOC: LAB 20:39
PROVIDERS: PCP Family Medicine; Visit Provider Physician Assistant
DX: Z01.419 Encounter for gynecological examination (general) (routine) without abnormal findings (principal); R53.83 Other fatigue
CPT/HCPCS: 87624; 88175

== ENCOUNTER 2024-05-27 10:34 | Outpatient (OUT) | payer OTHER, SELFPAY ==
--- NOTE | 2024-05-27 10:36 | MM_ITS ---
Patient Name: RENETTA COELLO MR#: [id number] : 1970 Exam Date: 05/27/2024 Ordering Doctor: DR JAVID SPRAGUE . RADIOLOGY REPORT PROCEDURE: MM TOMOSYNTHESIS SCREENING BI COMPARISON: MM TOMOSYNTHESIS SCREENING BI, 05/19/2023. INDICATIONS: Screening Calculator Name NCI Breast Cancer Risk Assessment Tool 5 Year Breast Cancer Risk 3.10% Lifetime Breast Cancer Risk 20.90% Personal Breast Cancer No Personal Ovarian Cancer No Treatments None Family Cancers Mother with breast cancer at age 70; Sister with melanoma cancer at age ~20. LOCATION: [facility] BREAST COMPOSITION: The breasts are heterogeneously dense,which may obscure small masses. FINDINGS: DIAGNOSTIC CATEGORY 2--BENIGN FINDING. NO CHANGE FROM COMPARISON. Scattered benign-appearing calcifications are present. Scattered benign-appearing lymph nodes are present. RIGHT BREAST: No significant suspicious finding. LEFT BREAST: No significant suspicious finding. Two stable micro clip markers upper-outer quadrant RECOMMENDATIONS: ROUTINE MAMMOGRAM AND CLINICAL EVALUATION IN 12 MONTHS. PLEASE NOTE: A NORMAL MAMMOGRAM DOES NOT EXCLUDE THE POSSIBILITY OF BREAST CANCER. A CLINICALLY SUSPICIOUS PALPABLE LUMP SHOULD BE BIOPSIED. Dictated by: Esau Starr MD on 05/27/2024 at 12:45 Approved by: Esau Starr MD on 05/27/2024 at 15:19
--- NOTE | 2024-05-27 10:36 | XR_ITS ---
[address] [address] Patient Name: RENETTA COELLO MRN: [id number] date: 1970 Sex: F Assigned Patient Location: [facility] Current Patient Location: Accession/Order Number: [id number] Exam Date: 05/27/2024 11:00 Report Date: 05/28/2024 05:08 At the request of: JAVID SPRAGUE Procedure: XR DEXA axial skeleton EXAMINATION: XR DEXA axial skeleton HISTORY: Postmenopausal COMPARISON: DEXA bone densitometry 05/11/2021 TECHNIQUE: Dual-energy X-ray absorptiometry (DXA) was performed. FINDINGS: SPINE ANALYSIS: Average bone mineral density is 1.406 g/cm2. T-score (standard deviation relative to young adult mean): 1.9 . Not previously evaluated. HIP ANALYSIS: Lowest bone mineral density is within the right femoral neck, 0.979 g/cm2. T-score (standard deviation relative to young adult mean): -0.4 . -6.0% change since prior study. XR/XR DEXA axial skeleton IMPRESSION: World Health Organization Classification: Normal - Low Fracture Risk FRAX: Cannot be calculated. Pharmacologic treatment recommendations * No uniform recommendation applies to all patients. Management plans must be individualized. * Consider initiating pharmacologic treatment in postmenopausal women and men >= 50 years of age who have the following: Primary fracture prevention: * T-score <= - 2.5 at the femoral neck, total hip, lumbar spine, 33% radius (some uncertainty with existing data) by DXA. * Low bone mass (osteopenia: T-score between - 1.0 and - 2.5) at the femoral neck or total hip by DXA with a 10-year hip fracture risk >= 3% or a 10-year major osteoporosis-related fracture risk >= 20% (i.e., clinical vertebral, hip, forearm, or proximal humerus) based on the US-adapted FRAXregistered model. Secondary fracture prevention: * Fracture of the hip or vertebra regardless of BMD [4, 5]. * Fracture of proximal humerus, pelvis, or distal forearm in persons with low bone mass (osteopenia: T-score between - 1.0 and - 2.5). The decision to treat should be individualized in persons with a fracture of the proximal humerus, pelvis, or distal forearm who do not have osteopenia or low BMD [12, 13]. Jenni MS, Tova SL, Brad KL, Yobani EM, Paty KG, AJ, Carmen ES. The clinician's guide to prevention and treatment of osteoporosis. Osteoporos Int. 2021;33(10):8478-8218. doi: 10.1007/w61791-078-21963-t. Epub 2021Oct 18. Erratum in: Osteoporos Int. 2021Jan 17;: PMID: [id number]; PMCID: [id number]. Electronically authenticated by: LAWRENCE HERNDNO Date: 05/28/2024 05:08
--- OUTSIDE RECORDS SUMMARY | 2024-05-27 10:56 | XMS_ITS | CCD ---
Author Organization [facility] Care Team Providers Care Patent Litigation Associate Name Role Phone DARCIE ., DR HUA Consulting Unavailable HOY ., DR MORENO Primary Care Unavailable DARCIE ., DR HUA Attending Unavailable DARCIE ., DR HUA Admitting Unavailable VERONIQUEJAMESJOSE Consulting Unavailable CEASARASTERVELVET Consulting Unavailable GEMBUS, DICK Consulting Unavailable DARCIE [...] Unavailable DARCIE ., DR HUA Admitting Unavailable [place], DR ROSSANA Teague Consulting Unavailable HOY ., DR MORNEO Primary Care Unavailable DARCIE ., DR HUA [...] ANTHONYY ., DR MORENO Primary Care Unavailable DIANE ., DR MORENO Attending Unavailable DIANE ., DR MORENO Admitting Unavailable [place], DR ROSSANA Teague Consulting Unavailable MD Josh Hong Primary Care Provider [phone] Ly, DO Elizabeth Perez Attending Provider DO Javid Watson Attending Provider Brit, Elizabeth Perez Admitting Unavailable Elizabeth Perea Attending Unavailable Josh Hong Primary Care Unavailable Javid Watson Admitting Unavailable Javid Watson Attending Unavailable Josh Hong Primary Care Unavailable Josh Hong MD Primary Care Provider [phone] JAVID WATSON Attending Unavailable JAVID WATSON Attending Unavailable MAY JORGE Attending Unavailable MAY JORGE Attending Unavailable Allergies Allergy Classification Reported Allergen(s) Allergy Type Date of Onset Reaction(s) Facility (2 sources) Fluconazole Drug Allergy 2 [facility] (1 source) levoFLOXacin Drug Allergy [facility] (1 source) levoFLOXacin Drug Allergy 4 [facility] Repository (4 sources) Fluconazole Propensity to adverse reactions 3 [facility] Work Phone: (4 sources) levoFLOXacin Drug Allergy 3 [facility] Medications Current Medications Medication Drug Class(es) Dates Sig (Normalized) Sig (Original) Black elderberry (2 sources) Start: 10-08-2023 take 2000 mg by mouth twice daily Black elderberry Active 2000 MG PO Twice daily October 08, 2023 12:00am cholecalciferol 0.05 mg oral capsule (6 sources) Vitamin D Start: 10-03-2023 take 25 ug by mouth once daily Cholecalciferol (Vitamin D3) Active 25 MCG PO Daily October 03, 2023 12:00am cholecalciferol (Vitamin D-3) 50 MCG (2000 UT) capsule Vitamin D (Cholecalciferol) Active 24 hr desvenlafaxine succinate 100 mg extended release oral tablet (6 sources) Serotonin and Norepinephrine Reuptake Inhibitor Start: 10-03-2023 take 1 tablet by mouth twice daily, then take 1 tablet by mouth every twenty-four hours Desvenlafaxine Succinate (Pristiq) 100 mg tablet extended release 24 hr Active 100 MG PO Twice daily October 03, 2023 12:00am Start: 05-05-2023 take 1 tablet by belen th every twenty-four hours in the morning desvenlafaxine (Pristiq) 100 MG 24 hr tablet Take 100 mg by mouth in the morning. 05/05/2023 Active dexamethasone 6 mg oral tablet (4 sources) Corticosteroid Start: 05-21-2022 take 1 tablet by mouth in the morning dexAMETHasone (Decadron) 6 MG tablet Take 6 mg by mouth in the morning. 05/21/2022 Active diclofenac sodium 75 mg delayed release oral tablet (6 sources) Nonsteroidal Anti-inflammatory Drug Start: 10-13-2023 take 1 tablet by mouth in the morning diclofenac (Voltaren) 75 MG EC tablet Take 75 mg by mouth in the morning and 75 mg before bedtime. 10/13/2023 Active Start: 10-03-2023 take 75 mg by mouth twice bryce y Diclofenac Potassium Active 75 MG PO Twice daily October 03, 2023 12:00am ferrous sulfate 325 mg oral tablet (4 sources) ferrous sulfate 325 (65 Fe) MG tablet 1 (one) time each day at the same time. Active folic acid 0.4 mg / vitamin b12 0.5 mg oral tablet (2 sources) Vitamin B12 Start: 10-08-2023 take 2 tablets by mouth once daily Vitamin R06-Irizf Acid Active 2 TAB PO Daily October 08, 2023 12:00am administer with a meal gabapentin 300 mg oral capsule (6 sources) Anti-epileptic Agent Start: 10-03-2023 take 300 mg by mouth three times daily Gabapentin Active 300 MG PO Three times daily October 03, 2023 12:00am Start: 05-06-2023 gabapentin (Ne urontin) 300 MG capsule Take by mouth every 8 (eight) hours. 05/06/2023 Active loratadine 5 mg chewable tablet (4 sources) loratadine (Claritin) 5 MG chewable tablet Claritin Active metFORMIN hydrochloride 500 mg oral tablet (4 sources) Biguanide Start: 4 take 1 tablet by mouth in the morning metFORMIN (Glucophage) 500 MG tablet Indications: Insulin resistance , PCOS (polycystic ovarian syndrome) Take 1 tablet (500 mg) by mouth in the morning and 1 tablet (500 mg) in the evening. Take with meals. 60 tablet 11 11/06/2023 Active Opzelura 1.5 % cream (4 sources) Start: 4 Opzelura 1.5 % cream 10/20/2023 Active pantoprazole 40 mg delayed release oral tablet (6 sources) Proton Pump Inhibitor Start: 3 take 1 tablet by mouth in the morning pantoprazole (ProtoNix) 40 MG EC tablet Take 40 mg by mouth in the morning and 40 mg before bedtime. 05/05/2023 Active rimegepant 75 mg disintegrating oral tablet (8 sources) Start: 4 Nurtec 75 MG tablet dispersible take 1 tablet by mouth AT ONSET OF MIGRAINE 11/03/2023 Active Start: 10-21-2023 take 1 tablet by belen [...] [Gastro-esophageal reflux disease without esophagitis] 10-21-2023 Chronic Malaise and fatigue (2 sources) Fatigue; Translations: [Other fatigue] 05-17-2024 Episodic Menopausal disorders (1 source) Menopausal and female [...] findings in stool contents] 10-03-2023 Episodic Other screening for suspected conditions (not mental disorders or infectious disease) (10 sources) Encounter for screening mammogram for malignant neoplasm of breast; Translations: [Encounter for screening for malignant neoplasm of cervix] Onset: 2 Episodic Other skin disorders (2 sources) Vitiligo; Translations: [Vitiligo] 10-21-2023 Episodic Ovarian cyst (2 sources) Cyst of left ovary; Translations: [Unspecified ovarian cyst, left side] 05-17-2024 Episodic Prolapse of female genital organs (1 source) Uterovaginal prolapse, unspecified; Translations: [UTEROVAGINAL PROLAPSE UNSPECIFIED] Onset: 2 Chronic Residual codes; unclassified (2 sources) Postmenopausal state; Translations: [Asymptomatic menopausal state] 05-17-2024 Episodic Unclassified (1 source) PERSONAL HISTORY OF COVID-19; [...] 07-03-2022 Episodic Other aftercare (1 source) Other care home (current) drug therapy; Translations: [OTH USP CURRENT DRUG THERAPY] Onset: 07-03-2022 Episodic Other aftercare (1 source) [facility] (current) use of oral hypoglycemic drugs; Translations: [USP USE ORAL HYPOGLYCEMIC DX] Onset: 07-03-2022 Episodic Other female genital disorders (1 source) Polyp of cervix uteri; Translations: [POLYP OF CERVIX UTERI] Onset: 06-21-2022 Episodic Other hematologic conditions (4 sources) Personal history of diseases of the blood and blood-forming organs and certain disorders involving the immune mechanism; Translations: [PERS HX DZ BLD/BLD-FRM ORG IMMN MCH] Onset: 07-04-2022 Episodic Other skin disorders (1 source) Vitiligo; [...] Test Name Value Interpretation Reference Range Facility ALL THYROID STIM HORMONEon 1 07-17-2023 TSH Qn 2.469 m[IU]/L [facility] Kevin 12-26-2023 L Specimen: [id number] Received: 12/29/23 Status: ANUSHA Collier Num: [id number] Spec Type: Surgical Subm Dr: Javid Watson Tissues: A Fallopian Tube Biopsy (RT TUBE REMNANT) Procedures: HE/2, Gross/Micro L4 Age/ Patient Sex Location Account Attending Physician Eliza Perera 53/F LABELL [id number] Javid Watson SPEC NUM: [id number] RECD: 12/29/23 STATUS: MARISSAErnie COLLIER NUM: [id number] CECILE: 12/26/[address]: Javid Watson ENTERED: 12/29/23 [facility] DR: Glenda,Lab SPEC TYPE: Surgical DEPT: [...] fluid. No normal tubal mucosa is identified. Battery Container Inspector sections are submitted in A1. CPT Codes 30388 Specimen: [id number] Received: 12/29/23 Status: ANUSHA Collier Num: [id number] Spec Type: Surgical Subm Dr: Javid Watson Tissues: A Fallopian Tube Biopsy (RT TUBE REMNANT) Procedures: KELBY/Gigi, Cindy/Sandra L4 Patient: Eliza Perera [id number] (Continued) Signed (signature on file) Seth Blanton MD 12/30/231749 Normal [facility] Kevin 10-21-2023 L Specimen: [id number] Received: 10/21/23 Status: ANUSHA Collier Num: [id number] Spec Type: Surgical Subm Dr: Elizabeth Perea DO Tissues: A Small Intestine - Biopsy/Polyp (SMALL BOWEL) B GASTRIC FOR HP (GASTRIC HP) C Gastric Biopsy (GASTRIC POLYP) Procedures: HE/6, Gross/Micro L4/3, H PYLORI, IHC First AB Age/ Patient Sex Location Account Attending Physician Eliza Perera 52/F [id number] Elizabeth Perea DO SPEC NUM: [id number] RECD: 10/21/23 STATUS: ANUSHA COLLIER NUM: [id number] CECILE: 10/21/23- SUBM DR: Elizabeth Perea DO ENTERED: 10/21/23 [facility] DR: SPEC TYPE: Surgical DEPT: [...] tissue fragment, entirely submitted in B1. Specimen: [id number] Received: 10/21/23 Status: ANUSHA Collier Num: [id number] Spec Type: Surgical Subm Dr: Elizabeth Perea DO Tissues: A Small Intestine - Biopsy/Polyp (SMALL BOWEL) B GASTRIC FOR HP (GASTRIC HP) C Gastric Biopsy (GASTRIC POLYP) Procedures: HE/6, Gross/Micro L4/3, H PYLORI, IHC First AB Patient: Eliza Perera [id number] (Continued) Specimen: [id number] Received: 10/21/23 (Continued) Gross Description (Continued) Signed (signature on file) Rossana Solares MD 10/22/23 1633 Specimen: [id number] Received: 10/21/23 Status: ANUSHA Collier Num: [id number] Spec Type: Surgical Subm Dr: Elizabeth Perea DO Tissues: A Small Intestine - Biopsy/Polyp (SMALL BOWEL) B GASTRIC FOR HP (GASTRIC HP) C Gastric Biopsy (GASTRIC POLYP) Procedures: HE/6, Gross/Micro L4/3, H PYLORI, IHC First AB Patient: Eliza Perera [id number] (Continued) Specimen: [id number] Received: 10/21/23-1429 (Continued) Gross Description (Continued) C. Further labeled gastric polyp is a 0.4 x 0.2 x 0.1 cm menjivar mucosal tissue fragment, entirely submitted in C1. Clinical history: Rule out celiac, rule out H. pylori. CPT Codes 20187d8, 70125 Specimen: [id number] Received: 10/21/23 Status: ANUSHA Collier Num: [id number] Spec Type: Surgical Subm Dr: Elizabeth Perea DO Tissues: A Small Intestine - Biopsy/Polyp (SMALL BOWEL) B GASTRIC FOR HP (GASTRIC HP) C Gastric Biopsy (GASTRIC POLYP) Procedures: HE/6, Gross/Micro L4/3, H PYLORI, IHC First AB Patient: Eliza Perera [id number] (Continued) Signed (signature on file) Rossana Solares MD 10/22/23 [facility] Normal [facility] Cytology Cervical or vaginal smear or scraping studyon 05-14-2023 [facility] VC VENOUS REFLUX RT [facility] VC VENOUS REFLUX RT LMT Patient: ELIZA PERERA Exam Date: 10/30/2022 : 1970 Gender:F Ordering : DR JOSH HONG . Admission #: [id number] Family : Order #: [id number] CLICK HERE TO VIEW EXAM RADIOLOGY REPORT [...] Compressibility: Normal. Flow: Moderate deep venous reflux. Search Marketing Coordinator: None. Tech Note: Incompetent varicose vein lateral [...] MD on 10/30/2022 at 12:59 Normal [facility] CBC AUTO DIFFon 07-04-2022 BASO # 0.1 103/ul Normal 0.0-0.1 [facility] Comment on above: Performed By: #### T SH #### [facility] [address] [address] [address] Marlene Blanton Basophils/100 WBC (Bld) 0.6 % Normal 0.2-2.0 [facility] Comment on above: Performed By: #### T SH #### [facility] [address] [address] [address] Marlene Blanton EO # 0.0 103/ul Normal 0.0-0.7 [facility] Comment on above: Performed By: #### T SH #### [facility] [address] [place] [address] Dr. Marlene Blanton Eosinophils/100 WBC (Bld) 0.0 % Critically low 0.9-7.0 [facility] Comment on above: Performed By: #### T SH #### [facility] [address] [place] [address] Dr. Marlene Blanton Erythrocyte distribution width (RBC) [Ratio] 13.3 % Normal 11.0-15.0 [facility] Comment on above: Performed By: #### T SH #### [facility] [address] [place] [address] Dr. Marlene Blanton Hematocrit (Bld) [Volume fraction] 42.3 % Normal 36.0-48.0 [facility] Comment on above: Performed By: #### T SH #### [facility] [address] [place] [address] Dr. Marlene Blanton Hemoglobin (Bld) [Mass/Vol] 13.0 g/dL Normal 12.0-16.0 [facility] Comment on above: Performed By: #### T SH #### [facility] [address] [place] [address] Dr. Marlene Blanton IG # 0.04 10e3/ul Critically high 0.00-0.03 [facility] Comment on above: Performed By: #### T SH #### [facility] [address] [place] [address] Dr. Marlene Blanton IG % 0.4 % Normal 0.0-0.5 [facility] Comment on above: Performed By: #### T SH #### [facility] [address] [place] [address] Dr. Marlene Blanton LYMPH # 2.0 103/ul Normal 1.2-3.8 [facility] Comment on above: Performed By: #### T SH #### [facility] [address] [place] [address] Dr. Marlene Blanton Lymphocytes/100 WBC (Bld) 19.0 % Critically low 20.5-60.0 [facility] Comment on above: Performed By: #### T SH #### [facility] [address] [place] [address] Dr. Marlene Blanton MANUAL DIFF REQ NO Normal [facility] Comment on above: Performed By: #### T SH #### [facility] [address] [place] [address] Dr. Marlene Blanton MCH (RBC) [Entitic mass] 29.6 pg Normal 26.7-34.0 [facility] Comment on above: Performed By: #### T SH #### [facility] [address] [place] [address] Dr. Marlene Blanton MCHC (RBC) [Mass/Vol] 30.7 g/dL Normal 29.9-35.2 [facility] Comment on above: Performed By: #### T SH #### [facility] [address] [place] [address] Dr. Marlene Blanton MCV (RBC) [Entitic vol] 96.4 fL Normal 81.0-99.0 [facility] Comment on above: Performed By: #### T SH #### [facility] [address] [place] [address] Dr. Marlene Blanton MONO # 0.7 103/ul Normal 0.3-0.8 [facility] Comment on above: Performed By: #### T SH #### [facility] [address] [place] [address] Dr. Marlene Blanton Monocytes/100 WBC (Bld) 6.6 % Normal 1.7-12.0 [facility] Comment on above: Performed By: #### T SH #### [facility] [address] [place] [address] Dr. Marlene Blanton NEUT # 7.7 103/ul Critically high 1.4-6.5 [facility] Comment on above: Performed By: #### T SH #### [facility] [address] [place] [address] Dr. Marlene Blanton Neutrophils/100 WBC (Bld) 73.4 % Normal 43.0-75.0 [facility] Comment on above: Performed By: #### T SH #### [facility] [address] [place] [address] Dr. Marlene Blanton Platelet mean volume (Bld) [Entitic vol] 8.9 fL Critically low 9.5-13.5 [facility] Comment on above: Performed By: #### T SH #### [facility] [address] [place] [address] Dr. Marlene Blanton PLT 288 103/ul Normal 150-450 [facility] Comment on above: Performed By: #### T SH #### [facility] [address] [place] [address] Dr. Marlene Blanton RBC 4.39 106/ul Normal 4.20-5.40 [facility] Comment on above: Performed By: #### T SH #### [facility] [address] [place] [address] Dr. Marlene Blanton WBC 10.5 103/ul Normal 4.0-11.0 [facility] Comment on above: Performed By: #### T SH #### [facility] [address] [place] [address] Dr. Marlene Blanton FREE T4on 07-04-2022 Free T4 [Mass/Vol] 0.98 ng/dL Normal 0.76-1.46 [facility] Comment on above: Performed By: #### F T4 #### [facility] [address] [place] [address] Dr. Marlene Blanton PROTIMEon 07-04-2022 INR Coag (PPP) [Relative time] 0.95 {INR} Normal [facility] Comment on above: Performed By: #### P T, PTT #### [facility] [address] [place] [address] Dr. Marlene Blanton INR GUIDELINES SEE BELOW Normal [facility] Comment on above: Result Comment: GLEN RED INR: 2.0 - 3.0 CONDITIONS NOT LISTED BELOW 2.5 - 3.5 FOR PROSTHETIC HEART VALVE REPLACEMENT 2.5 - 3.5 RECURRENT THROMBOSIS Performed By: #### P T, PTT #### [facility] [address] [place] [address] Dr. Marlene Blanton PT Coag (PPP) [Time] 10.1 s Normal 9.0-11.6 [facility] Comment on above: Performed By: #### P T, PTT #### [facility] [address] [place] [address] Dr. Marlene Blanton PTTon 07-04-2022 aPTT Coag (Bld) [Time] 27.2 s Normal 22.3-36.2 [facility] Comment on above: Performed By: #### P T, PTT #### [facility] [address] [place] [address] Dr. Marlene Blanton TSHon 07-04-2022 TSH 1.916 uIU/mL Normal 0.358-3.[address] [facility] Comment on above: Performed By: #### T SH #### [facility] [address] [place] [address] Dr. Marlene Blanton BUNon 06-21-2022 Urea nitrogen [Mass/Vol] 8.0 mg/dL Normal 7.0-18.0 [facility] Comment on above: Performed By: #### C BC #### [facility] [address] [place] [address] Dr. Marlene Blanton CBC AUTO DIFFon 06-21-2022 BASO # 0.0 103/ul Normal 0.0-0.1 [facility] Comment on above: Performed By: #### T SH #### [facility] [address] [place] [address] Dr. Marlene Blanton Basophils/100 WBC (Bld) 0.2 % Normal 0.2-2.0 [facility] Comment on above: Performed By: #### T SH #### [facility] [address] [place] [address] Dr. Marlene Blanton EO # 0.0 103/ul Normal 0.0-0.7 [facility] Comment on above: Performed By: #### T SH #### [facility] [address] [place] [address] Dr. Marlene Blanton Eosinophils/100 WBC (Bld) 0.1 % Critically low 0.9-7.0 [facility] Comment on above: Performed By: #### T SH #### [facility] [address] [place] [address] Dr. Marlene Blanton Erythrocyte distribution width (RBC) [Ratio] 13.4 % Normal 11.0-15.0 [facility] Comment on above: Performed By: #### T SH #### [facility] [address] [place] [address] Dr. Marlene Blanton Hematocrit (Bld) [Volume fraction] 33.6 % Critically low 36.0-48.0 [facility] Comment on above: Performed By: #### T SH #### [facility] [address] [place] [address] Dr. Marlene Blanton Hemoglobin (Bld) [Mass/Vol] 10.8 g/dL Critically low 12.0-16.0 [facility] Comment on above: Result Comment: post surgery Performed By: #### T SH #### [facility] [address] [place] [address] Dr. Marlene Blanton IG # 0.06 10e3/ul Critically high 0.00-0.03 [facility] Comment on above: Performed By: #### T SH #### [facility] [address] [place] [address] Dr. Marlene Blanton IG % 0.5 % Normal 0.0-0.5 [facility] Comment on above: Performed By: #### T SH #### [facility] [address] [place] [address] Dr. Marlene Blanton LYMPH # 2.0 103/ul Normal 1.2-3.8 [facility] Comment on above: Performed By: #### T SH #### [facility] [address] [place] [address] Dr. Marlene Blanton Lymphocytes/100 WBC (Bld) 16.1 % Critically low 20.5-60.0 [facility] Comment on above: Performed By: #### T SH #### [facility] [address] [place] [address] Dr. Marlene Blanton MANUAL DIFF REQ NO Normal [facility] Comment on above: Performed By: #### T SH #### [facility] [address] [address] [address] Marlene Blanton MCH (RBC) [Entitic mass] 29.0 pg Normal 26.7-34.0 [facility] Comment on above: Performed By: #### T SH #### [facility] [address] [place] [address] Dr. Marlene Blanton MCHC (RBC) [Mass/Vol] 32.1 g/dL Normal 29.9-35.2 [facility] Comment on above: Performed By: #### T SH #### [facility] [address] [place] [address] Dr. Marlene Blanton MCV (RBC) [Entitic vol] 90.1 fL Normal 81.0-99.0 [facility] Comment on above: Performed By: #### T SH #### [facility] [address] [place] [address] Dr. Marlene Blanton MONO # 0.7 103/ul Normal 0.3-0.8 [facility] Comment on above: Performed By: #### T SH #### [facility] [address] [place] [address] Dr. Marlene Blanton Monocytes/100 WBC (Bld) 5.3 % Normal 1.7-12.0 [facility] Comment on above: Performed By: #### T SH #### [facility] [address] [place] [address] Dr. Marlene Blanton NEUT # 9.7 103/ul Critically high 1.4-6.5 [facility] Comment on above: Performed By: #### T SH #### [facility] [address] [place] [address] Dr. Marlene Blanton Neutrophils/100 WBC (Bld) 77.8 % Critically high 43.0-75.0 [facility] Comment on above: Performed By: #### T SH #### [facility] [address] [place] [address] Dr. Marlene Blanton Platelet mean volume (Bld) [Entitic vol] 8.5 fL Critically low 9.5-13.5 [facility] Comment on above: Performed By: #### T SH #### [facility] [address] [place] [address] Dr. Marlene Blanton PLT 248 103/ul Normal 150-450 [facility] Comment on above: Performed By: #### T SH #### [facility] [address] [place] [address] Dr. Marlene Blanton RBC 3.73 106/ul Critically low 4.20-5.40 [facility] Comment on above: Performed By: #### T SH #### [facility] [address] [place] [address] Dr. Marlene Blanton WBC 12.4 103/ul Critically high 4.0-11.0 [facility] Comment on above: Performed By: #### T SH #### [facility] [address] [place] [address] Dr. Marlene Blanton CREATININEon 06-21-2022 Creatinine [Mass/Vol] 0.87 mg/dL Normal 0.55-1.02 [facility] Comment on above: Performed By: #### C BC #### [facility] [address] [place] [address] Dr. Marlene Blanton EGFR-AF TURKISH >60 Normal >=60 [facility] Comment on above: Performed By: #### C BC #### [facility] [address] [place] [address] Dr. Marlene Blanton EGFR-NON AF TURKISH >60 Normal >=60 [facility] Comment on above: Performed By: #### C BC #### [facility] [address] [place] [address] Dr. Marlene Blanton CBC AUTO DIFFon 06-19-2022 BASO # 0.1 103/ul Normal 0.0-0.1 [facility] Comment on above: Performed By: #### C BC #### [facility] [address] [place] [address] Dr. Marlene Blanton Basophils/100 WBC (Bld) 0.5 % Normal 0.2-2.0 [facility] Comment on above: Performed By: #### C BC #### [facility] [address] [place] [address] Dr. Marlene Blanton EO # 0.0 103/ul Normal 0.0-0.7 [facility] Comment on above: Performed By: #### C BC #### [facility] [address] [place] [address] Dr. Marlene Blanton Eosinophils/100 WBC (Bld) 0.1 % Critically low 0.9-7.0 [facility] Comment on above: Performed By: #### C BC #### [facility] [address] [place] [address] Dr. Marlene Blanton Erythrocyte distribution width (RBC) [Ratio] 13.4 % Normal 11.0-15.0 [facility] Comment on above: Performed By: #### C BC #### [facility] [address] [place] [address] Dr. Marlene Blanton Hematocrit (Bld) [Volume fraction] 39.8 % Normal 36.0-48.0 [facility] Comment on above: Performed By: #### C BC #### [facility] [address] [place] [address] Dr. Marlene Blanton Hemoglobin (Bld) [Mass/Vol] 13.2 g/dL Normal 12.0-16.0 [facility] Comment on above: Performed By: #### C BC #### [facility] [address] [place] [address] Dr. Marlene Blanton IG # 0.05 10e3/ul Critically high 0.00-0.03 [facility] Comment on above: Performed By: #### C BC #### [facility] [address] [place] [address] Dr. Marlene Blanton IG % 0.5 % Normal 0.0-0.5 [facility] Comment on above: Performed By: #### C BC #### [facility] [address] [place] [address] Dr. Marlene Blanton LYMPH # 2.4 103/ul Normal 1.2-3.8 [facility] Comment on above: Performed By: #### C BC #### [facility] [address] [place] [address] Dr. Marlene Blanton Lymphocytes/100 WBC (Bld) 24.7 % Normal 20.5-60.0 [facility] Comment on above: Performed By: #### C BC #### [facility] [address] [place] [address] Dr. Marlene Blanton MANUAL DIFF REQ NO Normal [facility] Comment on above: Performed By: #### C BC #### [facility] [address] [place] [address] Dr. Marlene Blanton MCH (RBC) [Entitic mass] 29.7 pg Normal 26.7-34.0 [facility] Comment on above: Performed By: #### C BC #### [facility] [address] [place] [address] Dr. Marlene Blanton MCHC (RBC) [Mass/Vol] 33.2 g/dL Normal 29.9-35.2 [facility] Comment on above: Performed By: #### C BC #### [facility] [address] [place] [address] Dr. Marlene Blanton MCV (RBC) [Entitic vol] 89.4 fL Normal 81.0-99.0 [facility] Comment on above: Performed By: #### C BC #### [facility] [address] [place] [address] Dr. Marlene Blanton MONO # 0.8 103/ul Normal 0.3-0.8 [facility] Comment on above: Performed By: #### C BC #### [facility] [address] [place] [address] Dr. Marlene Blanton Monocytes/100 WBC (Bld) 7.9 % Normal 1.7-12.0 [facility] Comment on above: Performed By: #### C BC #### [facility] [address] [place] [address] Dr. Marlene Blanton NEUT # 6.3 103/ul Normal 1.4-6.5 [facility] Comment on above: Performed By: #### C BC #### [facility] [address] [place] [address] Dr. Marlene Blanton Neutrophils/100 WBC (Bld) 66.3 % Normal 43.0-75.0 [facility] Comment on above: Performed By: #### C BC #### [facility] [address] [place] [address] Dr. Marlene Blanton Platelet mean volume (Bld) [Entitic vol] 8.3 fL Critically low 9.5-13.5 [facility] Comment on above: Performed By: #### C BC #### [facility] [address] [place] [address] Dr. Marlene Blanton PLT 300 103/ul Normal 150-450 [facility] Comment on above: Performed By: #### C BC #### [facility] [address] [place] [address] Dr. Marlene Blanton RBC 4.45 106/ul Normal 4.20-5.40 [facility] Comment on above: Performed By: #### C BC #### [facility] [address] [place] [address] Dr. Marlene Blanton WBC 9.6 103/ul Normal 4.0-11.0 [facility] Comment on above: Performed By: #### C BC #### [facility] [address] [place] [address] Dr. Marlene Blanton PREG QUANT HCGon 06-19-2022 HCG QUANT 1 mIU/mL Normal [facility] Comment on above: Performed By: #### P REGQNT #### [facility] [address] [place] [address] Dr. Marlene Blanton HCG RANGE SEE BELOW Normal [facility] Comment on above: Result Comment: 5-50 0.2-1 WEEK 50-500 1-2 WEEKS 100-5,000 2-3 WEEKS 500-10,000 3-4 WEEKS 1,000-50,000 4-5 WEEKS 10,000-100,000 5-6 WEEKS 15,000-200,000 6-8 WEEKS 10,000-100,000 2-3 MONTHS Performed By: #### P REGQNT #### [facility] [address] [place] [address] Dr. Marlene Blanton TYPE AND SCREENon 06-19-2022 TYPE AND SCREEN Negative Normal [facility] Comment on above: Performed By: #### C BC #### [facility] [address], [place] [address] Dr. Marlene Blanton ASYMPTOMATIC COVID-19 ANTIGE Non 05-28-2022 EUA Statement SEE BELOW Normal [facility] Comment on above: Result Comment: This [...] sooner. Performed By: #### C BC #### [facility] [address], [place] [address] Dr. Marlene Blanton SARS-CoV-2 (COVID-19) RNA [place]+probe Ql (Unsp spec) Positive Critically abnormal NEGATIVE [facility] Comment on above: Result Comment: SARS -CoV-2 antigen present; does not rule out coinfection with other pathogens. Performed By: #### C BC #### [facility] [address] [place] [address] [address] Marlene Blanton [facility] SARS-CoV-2 (COVID-19) RNA [place]+probe Ql (Unsp spec) Detected Critically abnormal NOT DETECTED [facility] Comment on above: Result Comment: This test is not yet approved or cleared by the [place] FDA. When there are no FDA-approved or cleared tests available, and other criteria are met, FDA can make tests available under an emergency access mechanism called an Emergency Use Authorization (EUA). The EUA for this test is supported by the [employer] Winder of Health and Human Service's declaration that [...] used). Performed By: #### C VDTB #### [facility] [address] [place] [address] Dr. Marlene Blanton PAP ACOG PANEL 2: 30 to 65on 05-15-2022 . . Normal [facility] Comment on above: Result Comment: Perf ormed at: WB Performed By: #### [id number] #### [facility] [address] [place] [address] Dr. Marlene Blanton Age Gdln ACOG Testing 30-65 [facility] Comment on above: Performed By: #### [id number] #### [facility] [address] [place] [address] Dr. Marlene Blanton DIAGNOSIS: Comment [facility] Comment on above: Result Comment: NEGA TIVE FOR INTRAEPITHELIAL LESION OR MALIGNANCY. FUNGAL ORGANISMS MORPHOLOGICALLY CONSISTENT WITH BAILEY SPECIES ARE PRESENT. Performed at: WB Performed By: #### [id number] #### [facility] [address] [place] [address] Dr. Marlene Blanton HPV Aptima Negative Normal Negative [facility] Comment on above: Result Comment: This nucleic acid amplification test detects fourteen high-risk HPV types (16,18,31,33,35,39,45,51,52,56,58,59,66,68) without differentiation. Performed at: =G Performed By: #### [id number] #### [facility] [address] [place] [address] Dr. Marlene Blanton HPV Genotype Reflex Comment [facility] Comment on above: Result Comment: Crit eria not met, HPV Genotype not performed. Performed at: WB Performed By: #### [id number] #### [facility] [address] [place] [address] Dr. Marlene Blanton Methodology: Comment [facility] Comment on above: Result Comment: This liquid based ThinPrep(R) pap test was screened with the use of an image guided system. Performed at: WB Performed By: #### [id number] #### [facility] [address] [place] [address] Dr. Marlene Blanton Note: Comment Normal [facility] [...] Performed at: WB Performed By: #### [id number] #### [facility] [address] [place] [address] Dr. Marlene Blanton Performed by: Comment Normal [facility] Comment on above: Result Comment: Marycruz Gillespie Meteorologist Liaison (ASCP) Performed at: WB Performed By: #### [id number] #### [facility] [address] [place] [address] Dr. Marlene Blanton Specimen adequacy: Comment Normal [facility] Comment on above: Result Comment: Sati sfactory for evaluation. No endocervical component is identified. Performed at: WB Performed By: #### [id number] #### [facility] [address] [place] [address] Dr. Marlene Blanton MG MAMM SCREEN 3D JENNIFER CADon 05-14-2022 MG MAMM SCREEN 3D JENNIFER CAD Patient: ELIZA PERERA Exam Date: 05/14/2022 : 1970 Gender:F Ordering : DR JAVID WATSON . Admission #: [id number] Family : DR JOSH HONG . Order #: [id number] CLICK HERE TO VIEW EXAM RADIOLOGY REPORT PROCEDURE: MAMMOGRAM SCREENING 3D BILATERAL CAD COMPARISON: MG MAMM SCREEN 3D JENNIFER CAD, 05/11/2021. MG MAMM SCREEN JENINFER W CAD, 05/10/2020. INDICATIONS: Screening mammography Calculator Name NCI Breast Cancer Risk Assessment Tool 5 Year Breast Cancer Risk 2.80% Lifetime Breast Cancer Risk 21.60% Personal Breast Cancer No Personal Ovarian Cancer No Treatments None Family Cancers Mother with breast cancer at age 70; Sister with melanoma cancer at age 20. LOCATION: [facility] BREAST COMPOSITION: Heterogeneously dense,which may obscure small [...] M.D. on 05/14/2022 at 14:48 Normal [facility] US PELVIS AND TRANSVAGon US PELVIS AND [...] ROSSANA VELÁSQUEZ Date: 2022-05-09 13:04 Normal [facility] CBC AUTO DIFFon 05-08-2022 BASO # 0.1 103/ul Normal 0.0-0.1 [facility] Comment on above: Performed By: #### T SH #### [facility] [address] [address] [address] Marlene Blanton Basophils/100 WBC (Bld) 0.7 % Normal 0.2-2.0 [facility] Comment on above: Performed By: #### T SH #### [facility] [address] [address] [address] Marlene Blanton EO # 0.0 103/ul Normal 0.0-0.7 [facility] Comment on above: Performed By: #### T SH #### [facility] [address] [place] [address] Dr. Marlene Blanton Eosinophils/100 WBC (Bld) 0.0 % Critically low 0.9-7.0 [facility] Comment on above: Performed By: #### T SH #### [facility] [address] [place] [address] Dr. Mralene Blanton Erythrocyte distribution width (RBC) [Ratio] 13.4 % Normal 11.0-15.0 [facility] Comment on above: Performed By: #### T SH #### [facility] [address] [place] [address] Dr. Marlene Blanton Hematocrit (Bld) [Volume fraction] 42.1 % Normal 36.0-48.0 [facility] Comment on above: Performed By: #### T SH #### [facility] [address] [place] [address] Dr. Marlene Blanton Hemoglobin (Bld) [Mass/Vol] 13.8 g/dL Normal 12.0-16.0 [facility] Comment on above: Performed By: #### T SH #### [facility] [address] [place] [address] Dr. Marlene Blanton IG # 0.04 10e3/ul Critically high 0.00-0.03 [facility] Comment on above: Performed By: #### T SH #### [facility] [address] [place] [address] Dr. Marlene Blanton IG % 0.4 % Normal 0.0-0.5 [facility] Comment on above: Performed By: #### T SH #### [facility] [address] [place] [address] Dr. Marlene Blanton LYMPH # 2.1 103/ul Normal 1.2-3.8 [facility] Comment on above: Performed By: #### T SH #### [facility] [address] [place] [address] Dr. Marlene Blanton Lymphocytes/100 WBC (Bld) 23.3 % Normal 20.5-60.0 [facility] Comment on above: Performed By: #### T SH #### [facility] [address] [place] [address] Dr. Marlene Blanton MANUAL DIFF REQ NO Normal [facility] Comment on above: Performed By: #### T SH #### [facility] [address] [place] [address] Dr. Marlene Blanton MCH (RBC) [Entitic mass] 29.3 pg Normal 26.7-34.0 [facility] Comment on above: Performed By: #### T SH #### [facility] [address] [place] [address] Dr. Marlene Blanton MCHC (RBC) [Mass/Vol] 32.8 g/dL Normal 29.9-35.2 [facility] Comment on above: Performed By: #### T SH #### [facility] [address] [place] [address] Dr. Marlene Blanton MCV (RBC) [Entitic vol] 89.4 fL Normal 81.0-99.0 [facility] Comment on above: Performed By: #### T SH #### [facility] [address] [place] [address] Dr. Marlene Blanton MONO # 0.7 103/ul Normal 0.3-0.8 [facility] Comment on above: Performed By: #### T SH #### [facility] [address] [place] [address] Dr. Marlene Blanton Monocytes/100 WBC (Bld) 7.3 % Normal 1.7-12.0 [facility] Comment on above: Performed By: #### T SH #### [facility] [address] [place] [address] Dr. Marlene Blanton NEUT # 6.1 103/ul Normal 1.4-6.5 [facility] Comment on above: Performed By: #### T SH #### [facility] [address] [place] [address] Dr. Marlene Blanton Neutrophils/100 WBC (Bld) 68.3 % Normal 43.0-75.0 [facility] Comment on above: Performed By: #### T SH #### [facility] [address] [place] [address] Dr. Marlene Blanton Platelet mean volume (Bld) [Entitic vol] 8.8 fL Critically low 9.5-13.5 [facility] Comment on above: Performed By: #### T SH #### [facility] [address] [place] [address] Dr. Marlene Blanton PLT 310 103/ul Normal 150-450 [facility] Comment on above: Performed By: #### T SH #### [facility] [address] [place] [address] Dr. Marlene Blanton RBC 4.71 106/ul Normal 4.20-5.40 [facility] Comment on above: Performed By: #### T SH #### [facility] [address] [place] [address] Dr. Marlene Blanton WBC 9.0 103/ul Normal 4.0-11.0 [facility] Comment on above: Performed By: #### T SH #### [facility] [address] [place] [address] Dr. Marlene Blanton FREE T4on 05-08-2022 Free T4 [Mass/Vol] 1.09 ng/dL Normal 0.76-1.46 [facility] Comment on above: Performed By: #### T SH #### [facility] [address] [place] [address] Dr. Marlene Blanton PREG QUANT HCGon 05-08-2022 HCG QUANT 1 mIU/mL Normal [facility] Comment on above: Performed By: #### T SH, PREGQNT #### [facility] [address] [place] [address] Dr. Marlene Blanton HCG RANGE SEE BELOW Normal [facility] Comment on above: Result Comment: 5-50 0.2-1 WEEK 50-500 1-2 WEEKS 100-5,000 2-3 WEEKS 500-10,000 3-4 WEEKS 1,000-50,000 4-5 WEEKS 10,000-100,000 5-6 WEEKS 15,000-200,000 6-8 WEEKS 10,000-100,000 2-3 MONTHS Performed By: #### T SH, PREGQNT #### [facility] [address] [place] [address] Dr. Marlene Blanton PROTIMEon 05-08-2022 INR Coag (PPP) [Relative time] 0.95 {INR} Normal [facility] Comment on above: Performed By: #### C BC #### [facility] [address] [place] [address] Dr. Marlene Blanton INR GUIDELINES SEE BELOW Normal The [facility] Comment on above: Result Comment: GLEN RED INR: 2.0 - 3.0 CONDITIONS NOT LISTED BELOW 2.5 - 3.5 FOR PROSTHETIC HEART VALVE REPLACEMENT 2.5 - 3.5 RECURRENT THROMBOSIS Performed By: #### C BC #### [facility] [address] [place] [address] Dr. Marlene Blanton PT Coag (PPP) [Time] 10.3 s Normal 9.0-11.6 [facility] Comment on above: Performed By: #### C BC #### [facility] [address] [place] [address] Dr. Marlene Blanton PTTon 05-08-2022 aPTT Coag (Bld) [Time] 26.3 s Normal 22.3-36.2 [facility] Comment on above: Performed By: #### C BC #### [facility] [address] [place] [address] Dr. Marlene Blanton TSHon 05-08-2022 TSH 4.001 uIU/mL Critically high 0.358-3.740 [facility] Comment on above: Performed By: #### T SH, PREGQNT #### [facility] [address] [place] [address] Dr. Marlene Blanton Reminderson 06-01-2020 Reminders - From: Jesenia Price LPN To: GSN - Clinical; Sent: 06/01/2020 08:20:44 EST Show up: 04/24/2030 09:00:00 EDT Subject: colonoscopy recall Due Date/Time: 05/24/2030 09:00:00 EST Reminder/Recall Patient is due for screening colonoscopy 05/24/2030. Normal [facility] Ambulatory Clinical Summaryo n 05-31-2020 Ambulatory Clinical Summary {[id number]}CD:[id number] Normal [facility] General Surgery Office/Clini c Noteon 05-31-2020 [...] BUITRAGO MD Only if needed [address] [place] [address]- Additional Instructions: Problem List/Past Medical History Ongoing [...] neoplasm of female breast: Mother. Normal [facility] Comment on above: Result Comment: Elec tronically Signed By: GABRIEL LAUREN, Corby Salguero\.br\Date and Time Signed: 05/31/20 16:31 EST Pathology Noteon 05-29-2020 Pathology Note [id number]#1.00C D:127 Normal [facility] Outside Colonoscopyon 2019 Outside Colonoscopy [id number]#1.00C D:127 Normal [facility] Lab Reportson 05-25-2020 Lab Reports [id number] D:127 [facility] Provider Letter FTon 05-12 Provider Letter [facility] Josh Hong, [address] [place] [address] Re: ELIZA PERERA Date of : 1970 Thank you for your referral of Eliza Perera who was seen on consultation on May 09, 2020, for rectal bleeding, abdominal pain with bowel movements. A colonoscopy is ordered for further evaluation. I will be happy to follow Eliza. Sincerely, Corby Buitrago MD General Surgery Normal [facility] Ambulatory Clinical Summaryo n 05-09-2020 Ambulatory Clinical Summary {[id number] Normal [facility] General Surgery Office/Clini c Noteon 05-09-2020 [...] available Patient Education Exercise to Stay Healthy, [id number] Problem List/Past Medical History Ongoing Abdominal pain, [...] neoplasm of female breast: Mother. Normal [facility] Comment on above: Result Comment: Elec tronically Signed By: GABRIEL LAUREN, Corby Nick.br\Date and Time Signed: 05/09/20 17:10 EST Patient [...] working out. ? Try yoga, Pilates, or cehl chi. ? Lift weights. ? Walk fast, [...] Document Reviewed: 07/12/2011 ExitCare? Patient Information ?2013 [employer]. Normal [facility] Physician Referralon 020 Physician Referral [id number] D:127 Normal [facility] Vital Signs Date Time Vital Sign Value Performing Clinician Ismael kunz 05-17-2024 08:51-0500 Body mass index (BMI) [Ratio] 27 kg/m2 May HURD Work Phone: [facility] 05-17-2024 08:51-0500 Body weight 78.2 kg May HURD Work Phone: [facility] 05-17-2024 08:51-0500 Diastolic blood pressure 60 mm[Hg] May HURD Work Phone: [facility] 05-17-2024 08:51-0500 Systolic blood pressure 110 mm[Hg] May HURD Work Phone: [facility] 10-21-2023 14:00-0400 Diastolic blood pressure 72 mm[Hg] MD Josh Hong Work Phone: [facility] 10-21-2023 14:00-0400 Heart rate 77 /min MD Josh Hong Work Phone: [facility] 10-21-2023 14:00-0400 Respiratory rate 16 /min MD Josh Hong Work Phone: [facility] 10-21-2023 14:00-0400 SaO2% (BldA) [Mass fraction] 97 % MD Josh Hong Work Phone: [facility] 10-21-2023 14:00-0400 Systolic blood pressure 121 mm[Hg] MD Josh Hong Work Phone: [facility] 10-21-2023 10:52-0400 Body height 170.18 cm MD Josh Hong Work Phone: [facility] 10-21-2023 10:52-0400 Body weight 79.37 kg MD Josh Hong Work Phone: [facility] 10-03-2023 09:50-0400 Body height 170.18 cm MD Josh Hong Work Phone: [facility] 10-03-2023 09:50-0400 Body mass index (BMI) [Ratio] 28 kg/m2 MD Josh Hong Work Phone: [facility] 10-03-2023 09:50-0400 Body weight 81.19 kg MD Josh Hong Work Phone: [facility] 10-03-2023 09:50-0400 Diastolic blood pressure 79 mm[Hg] MD Josh Hong Work Phone: [facility] 10-03-2023 09:50-0400 Heart rate 74 /min MD Josh Hong Work Phone: [facility] 10-03-2023 09:50-0400 Systolic blood pressure 128 mm[Hg] MD Josh Hong Work Phone: [facility] Encounters Encounter Date Encounter Type Care Provider Facility Start: 05-17-2024 End: 05-17-2024 Nabil HURD Work Phone: [facility] Start: 05-17-2024 End: 05-17-2024 Nabil HURD Work Phone: [facility] Start: 05-17-2024 End: 05-17-2024 Clinisync Result Encounter May HURD Work Phone: [facility] External Department Unsolicited Start: 05-17-2024 End: 05-17-2024 ambulatory MAY JORGE Not Available Start: 05-17-2024 End: 05-17-2024 Patient encounter procedure May HURD Work Phone: [facility] Work Phone: Start: 05-17-2024 End: 05-17-2024 Periodic preventive med est patient 40-64yrs May HURD Work Phone: [facility] Comment on above: Well woman exam with routine gynecological exam; Breast cancer screening by mammogram; Postmenopausal state; Other fatigue; Left ovarian cyst Start: 01-08-2024 End: 01-08-2024 ambulatory MAY JORGE Not Available Start: 12-26-2023 End: 12-26-2023 ambulatory MD Josh Hong Work Phone: [facility] Work Phone: Start: 12-26-2023 End: 12-26-2023 Departed Referred MD Josh Hong Work Phone: [facility] Start: 12-01-2023 End: 12-01-2023 ambulatory JAVID DARCIE Not Available Start: 11-06-2023 End: 11-06-2023 ambulatory JAVID DARCIE Not Available Start: 10-21-2023 Non-patient / Non-visit MD Bennie Hong Work Phone: [facility] Work Phone: Start: 10-21-2023 End: 10-21-2023 Admission to same day surgery center MD Josh Hong Work Phone: [facility] Work Phone: Start: 10-21-2023 End: 10-21-2023 ambulatory MD Josh Hong Work Phone: [facility] Work Phone: Start: 10-03-2023 End: 10-03-2023 Patient encounter procedure MD Josh Hong Work Phone: [facility] Work Phone: Start: 10-30-2022 End: 10-31-[address] JOSH HONG . Facility:[facility] Start: 07-04-2022 End: 07-05-[address] JAVID WATSON . Facility:[facility] Start: 06-21-2022 Encounter for preprocedural laboratory examination DR JAVID WATSON . [facility] Start: 06-20-2022 End: 06-21-[address] JAVID WATSON . Facility:[facility] Start: 06-19-2022 Encounter for preprocedural cardiovascular examination DR JAVID WATSON . [facility] Start: 06-19-2022 End: 06-20-[address] JAVID [...] Date Procedure Procedure Detail Performing Clinician Start: 05-17-2024 ALL THYROID STIM HORMONE May HURD Work Phone: Start: 10-21-2023 Esophagogastroduodenoscopy MD Josh astorga Work Phone: Start: 05-21-2023 Mammography May HURD Work Phone: Start: 05-14-2023 Microscopic observation [Identifier] in Cervix by Cyto stain May HURD Work Phone: Start: 05-14-2023 Cytp cerv/vag auto thin layer prep mnl screen Javid Watson DO Work Phone: Start: 06-07-2020 Colonoscopy May HURD Work Phone: Plan of Treatment Date Care Activity Detail Author Start: 06-07-2030 Screening for malign ant neoplasm of colon [facility] Start: 05-14-2028 Screening for malign ant neoplasm of cervix [facility] Start: 05-23-2025 End: 05-23-2025 Patient encounter procedure 05/23/2025 9:00 AM EST Office Visit [facility] [address] [place] [id number] May Jorge PA [address] [place] [address] [facility] Start: 05-21-2024 Screening for malign ant neoplasm of breast Mammogram [facility] Start: 05-17-2024 End: 05-17-2025 CBC W Auto Differential panel - Blood CBC and differential Lab Routine Other fatigue Expected: 05/17/2024 (Approximate), Expires: 05/17/2025 [facility] Comment on above: Expected: 05/17/2024 (Approximate), Expires: 05/17/2025 Start: 05-17-2024 End: 05-17-2025 DXA Skeletal system Views for bone density DEXA bone density Imaging Routine Postmenopausal state Expected: 05/17/2024 (Approximate), Expires: 05/17/2025 [facility] Comment on above: Expected: 05/17/2024 (Approximate), Expires: 05/17/2025 Start: 05-17-2024 End: 07-17-2025 MG Breast - bilateral Screening Bilateral screening mammogram Imaging Routine Breast cancer screening by mammogram Expected: 05/17/2024, Expires: 07/17/2025 [facility] Work Phone: Comment on above: Expected: 05/17/2024 , Expires: 07/17/2025 Start: 05-17-2024 End: 05-17-2025 US for US PELVIS-TRANSVAG IF INDICATED Imaging Routine Left ovarian cyst Expected: 05/17/2024 (Approximate), Expires: 05/17/2025 [facility] Comment on above: Expected: 05/17/2024 (Approximate), Expires: 05/17/2025 Start: 02-22-2024 Influenza vaccination Influenza Vacc ine (#1) [facility] Start: 10-21-2023 [facility] Start: 1970 Screening for malign ant neoplasm of colon [facility] Patient Education Gastritis Stomach polyp s [facility] Work Phone: THIN PREP TIS PAP AN D HR HPV DNA THIN PREP TIS PAP AND HR HPV DNA Pathology and Cytology Routine Well woman exam with routine gynecological exam Ordered: 05/17/2024 [facility] Comment on above: Ordered: 05/17/2024 Thyrotropin [Units/volume] in Serum or Plasma TSH Lab Routine Other fatigue Ordered: 05/17/2024 [facility] Comment on above: Ordered: 05/17/2024 Immunizations Immunization Date Immunization Notes Care Provider Fa [facility] 04-14-2024 influenza virus vacc ine, unspecified formulation May HURD Work Phone: [facility] Payers Date Payer Category Payer Self-pay 2023 Private Health Insurance [employer] [id number] 1970 Unknown [id number] 2.16.840.1.583307.3.579.2. 593 1970 Unknown [id number] 2.16.840.1.978003.3.579.2. 593 1969 Unknown [id number] 2.16.840.1.655431.3.579.2. 593 1969 Unknown [id number] 2.16.840.1.801746.3.579.2. 593 1969 Unknown [id number] 2.16.840.1.426097.3.579.2. 593 1969 Unknown [id number] 2.16.840.1.404414.3.579.2. 593 1969 Unknown [id number] 2.16.840.1.685671.3.579.2. 593 1969 Unknown [id number] 2.16.840.1.290441.3.579.2. 593 1969 Unknown [id number] 2.16.840.1.431100.3.579.2. 593 1969 Unknown [id number] 2.16.840.1.676306.3.579.2. 593 1969 Unknown [id number] 2.16.840.1.760035.3.579.2. 593 1969 Unknown [id number] 2.16.840.1.211889.3.579.2. 1259 1969 Unknown [id number] 2.16.840.1.971267.3.579.2. 1259 1969 Unknown [id number] 2.16.840.1.282233.3.579.2. 1259 1969 Unknown [id number] 2.16.840.1.662973.3.579.2. 1259 1959 Unknown [id number] Unknown [id number] 2.16.840.1.427556.3.579.2. 531 Unknown [id number] 2.16.840.1.555711.3.579.2. 531 Social History Date Type Detail Facility Start: 05-12-2023 End: 10-21-2023 Tobacco smoking status NHIS Never smoked tobacco (finding) [facility] Start: 1970 Sex Assigned At Female F [facility] Start: 01-08-2024 End: 05-17-2024 Alcoholic beverage intake Ex-drinker (finding) [facility] Start: 05-12-2023 End: 11-06-2023 History of Social function [facility] Start: 05-12-2023 End: 11-06-2023 Alcohol Use Disorder Identification Test - Consumption [AUDIT-C] [facility] How often to you hav e a drink containing alcohol? Monthly or less [facility] How many standard dr inks containing alcohol do you have on a typical day? 1 or 2 [facility] How often do you hav e 6 or more drinks on 1 occasion? Never [facility] Start: 05-12-2023 Alcohol Comment Caffeine intak e: none [facility] Start: 1970 Sex assigned at Not on file [facility] Goals Date Patient Goal Desired Activity /State History of Present illness Narrative 05-17-2024 VANNESSA Sheffield - 05/17/2024 8:30 AM EST Note Date & Type Note Facility 05-17-2024 History of Presen t illness Narrative Reason for Appointment: Patient ID: Eliza Perera is a 53 y.o. female who presents for Well Women Visit Patient presents today for Annual Exam. MEDICATIONS Current Outpatient Medications Medication Instructions cholecalciferol (Vitamin D-3) 50 MCG (1999) capsule Vitamin D (Cholecalciferol) desvenlafaxine (PRISTIQ) 100 mg, Daily dexAMETHasone (DECADRON) 6 mg, Daily diclofenac (VOLTAREN) 75 mg, 2 times daily ferrous sulfate 325 (65 Fe) MG tablet Every 24 hours gabapentin (Neurontin) 300 MG capsule Every 8 hours loratadine (Claritin) 5 MG chewable tablet Claritin metFORMIN (GLUCOPHAGE) 500 mg, Oral, 2 times daily with meals Nurtec 75 MG tablet dispersible take 1 tablet by mouth AT ONSET OF MIGRAINE Opzelura 1.5 % cream pantoprazole (PROTONIX) 40 mg, 2 times daily ALLERGIES Allergies Allergen Reactions Diflucan [Fluconazole] Levaquin [Levofloxacin] PROBLEMS Active Ambulatory Problems Diagnosis Date Noted No Active Ambulatory Problems Resolved Ambulatory Problems Diagnosis Date Noted No Resolved Ambulatory Problems Past Medical History: Diagnosis Date Abnormal diffusion capacity determined by pulmonary function test Anemia, iron deficiency BMI 26.0-26.9,adult Breast cancer screening by mammogram Cervical polyp Chest pain Displaced fracture of proximal phalanx of left thumb, initial encounter for closed fracture Diverticulosis DVT (deep venous thrombosis) (CMS/HCC) Excessive hair growth Family history of breast cancer in first degree relative History of COVID-19 Hot flashes IBS (irritable bowel syndrome) Joint pain Meniere's disease Menopausal symptoms Menopausal symptoms Menorrhagia Migraines (CMS/HCC) Neuromuscular weakness (CMS/HCC) Otalgia of right ear PCOS (polycystic ovarian syndrome) Post menopausal syndrome Recurrent vertigo Shortness of breath Superficial phlebitis and thrombophlebitis of right lower extremity Tinnitus Uterine prolapse Vitiligo HISTORY PAST MEDICAL HISTORY SOCIAL HISTORY Past Medical History: Diagnosis Date Abnormal diffusion capacity determined by pulmonary function test Anemia, iron deficiency BMI 26.0-26.9,adult Breast cancer screening by mammogram Cervical polyp Chest pain Displaced fracture of proximal phalanx of left thumb, initial encounter for closed fracture Diverticulosis DVT (deep venous thrombosis) (CMS/HCC) Excessive hair growth Family history of breast cancer in first degree relative History of COVID-19 Hot flashes IBS (irritable bowel syndrome) Joint pain Meniere's disease Menopausal symptoms Menopausal symptoms Menorrhagia Migraines (CMS/HCC) Neuromuscular weakness (CMS/HCC) Otalgia of right ear PCOS (polycystic ovarian syndrome) Post menopausal syndrome Recurrent vertigo Shortness of breath Superficial phlebitis and thrombophlebitis of right lower extremity Tinnitus Uterine prolapse Vitiligo Social History Tobacco Use Smoking status: Never Smokeless tobacco: Not on file Substance Use Topics Alcohol use: Not Currently Comment: Caffeine intake: none Drug use: Never FAMILY HISTORY Family History Problem Relation Name Age of Onset Hypertension Mother Heart disease Mother COPD Mother Cancer Mother breast Deep vein thrombosis Mother Osteoporosis Mother Heart disease Father Vitiligo Father Melanoma Sister Thyroid disease Sister Cancer Sister Vitiligo Brother Melanoma Sibling Cancer Sibling SURGICAL HISTORY Past Surgical History: Procedure Laterality Date BREAST BIOPSY Left 2018 benign CHOLECYSTECTOMY ENDOMETRIAL ABLATION 05/2021 FOOT SURGERY 2014 plantar fascia w nerve release RT foot, developed DVT HYSTERECTOMY 06/20/2022 Vnotes with cystoscopy OTHER SURGICAL HISTORY 2009 Sclerotherapy OVARIAN CYST REMOVAL SALPINGECTOMY Bilateral 06/20/2022 REVIEW OF SYSTEMS Review of Systems: Review of Systems Constitutional: Negative. HENT: Negative. Eyes: Negative. Respiratory: Negative. Cardiovascular: Negative. Gastrointestinal: Negative. Genitourinary: Negative. Musculoskeletal: Negative. Skin: Negative. Neurological: Negative. All other systems reviewed and are negative. Hematological: Negative. Endocrine: Negative. Allergic/Immunologic: Negative. OBJECTIVE Objective: Physical Exam Constitutional: Appearance: Normal appearance. Genitourinary: Right Adnexa: not tender and no mass present. Left Adnexa: not tender and no mass present. No cervical discharge. Breasts: Breasts are soft. Right: Normal. Left: Normal. HENT: Head: Normocephalic. Nose: Nose normal. Mouth/Throat: Mouth: Mucous membranes are moist. Cardiovascular: Rate and Rhythm: Normal rate. Pulmonary: Effort: Pulmonary effort is normal. Abdominal: General: Bowel sounds are normal. Palpations: Abdomen is soft. Musculoskeletal: General: Normal range of motion. Cervical back: Normal range of motion. Neurological: General: No focal deficit present. Mental Status: She is alert. Skin: General: Skin is warm and dry. Psychiatric: Mood and Affect: Mood normal. Vitals and nursing note reviewed. Exam conducted with a strings teacher present. Vitals: Estimated body mass index is 27 kg/m as calculated from the following: Height as of 01/08/24: 5' 7 . Weight as of this encounter: 172 lb 6.4 oz. BP: 110/60 No LMP recorded (lmp unknown). Patient has had a hysterectomy. ASSESSMENT & PLAN ICD-10-CM 1. Well woman exam with routine gynecological exam Z01.419 THIN PREP TIS PAP AND HR HPV DNA 2. Breast cancer screening by mammogram Z12.31 Bilateral screening mammogram Bilateral screening mammogram 3. Postmenopausal state Z78.0 DEXA bone density 4. Other fatigue R53.83 CBC and differential CBC and differential TSH 5. Left ovarian cyst N83.202 US PELVIS-TRANSVAG IF INDICATED Annual Exam: Patient presents today for an annual exam. Patient states she is doing well and has no complaints. Pap was obtained without difficulty. Orders Placed This Encounter Procedures Bilateral screening mammogram DEXA bone density US PELVIS-TRANSVAG IF INDICATED CBC and differential TSH Follow Up: Patient is to return in one year for annual unless needed otherwise. Documented by VANNESSA Sheffield on behalf of: VANNESSA Sheffield documented in this encounter [facility] Procedure note 10-21-2023 Note Date & Type Note Facility 10-21-2023 Procedure note [facility] Procedure note 10-21-2023 Note Date & Type Note Facility 10-21-2023 Procedure note [facility] Clinical Note 06-20-2022 Note Date & Type Note Facility 06-20-2022 Note OPERATIVE NOTE OPERATION DATE: 06/20/2022 PROCEDURE: vNOTES hysterectomy with cystoscopy and bilateral salpingectomy. PREOPERATIVE DIAGNOSIS: Pelvic pressure, menorrhagia, dysmenorrhea, dyspareunia. POSTOPERATIVE DIAGNOSIS: Pelvic pressure, menorrhagia, dysmenorrhea, dyspareunia. ANESTHESIA: General. SURGEON: Javid Watson M.D. PLANT GENERAL MANAGER: PIYUSH Howell URINE OUTPUT: Yellow and [...] Sponge, lap, needle counts correct x2. [facility] Evaluation note Note Date & Type Note Facility Evaluation note Diagnosis Onset Date Abdominal pain acute Bloating acute GERD (gastroesophageal reflux disease) acute Mucus in stool acute [facility] Work Phone: Evaluation note Note Date & Type Note Facility Evaluation note Diagnosis Well woman exam with routine gynecological exam Routine gynecological examination Breast cancer screening by mammogram Postmenopausal state Asymptomatic postmenopausal status (age-related) (natural) Other fatigue Left ovarian cyst Other and unspecified ovarian cyst documented in this encounter [facility] History and physical note Note Date & Type Note Facility History and physical note Note Date/Time October 21, 2023 12:42pm [facility] [address] [place] [address] Gastroenterology H&P Signed Patient: Eliza Perera MR#: [id number] : 1970 Acct:[id number] Age/Sex: 52 / F Adm Date: 4 Loc: Room: Type: [facility] Attending Dr: Elizabeth Perea DO Copies [...] signed by Elizabeth Perea DO> 10/21/23 1242 [facility] Work Phone: Summary Purpose Family [...] section and content) DATE CREATED AUTHOR [facility]15/2020 [facility] DATE CREATED AUTHOR AUTHOR'S ORGANIZ ATION 11/03/2022 [facility] DATE CREATED AUTHOR AUTHOR'S ORGANIZ ATION 01/05/2024 [facility] DATE CREATED AUTHOR AUTHOR'S ORGANIZ ATION 05/19/2024 [facility] EPIC Care Teams (unrecognized [...] December 26, 2023 End: December 26, 2023 Patent Litigation Associate Relationship Specialty Start Date End Date Josh Hong MD [address] [place] [address] PCP - General Family Medicine 05/14/23 Patent Litigation Associate Relationship Specialty Start Date End Date Josh Hong MD [address] [place] [address] PCP - General Family Medicine 05/14/23 Patent Litigation Associate Relationship Specialty Start Date End Date Josh Hong MD [address] [place] [address] PCP - General Family Medicine 05/14/23 Reason for Visit (unrecogniz ed section and content) Reason Comments Well Women Visit FOR RECORDS PERTAINING TO PATIENTS WHO ARE [...] BE BASED ON THE PRIMARY CLINICAL RECORDS. Continuing Education Records & Resources [facility]. provides no warranty or guarantee of the accuracy or completeness of information in this document.
== END 2024-05-27 10:35 | disposition home or self-care (01) ==
LOC: MAMMO 10:34
PROVIDERS: PCP Family Medicine; Visit Provider Obstetrics & Gynecology
DX: Z12.31 Encounter for screening mammogram for malignant neoplasm of breast (principal); Z78.0 Asymptomatic menopausal state; Z80.3 Family history of malignant neoplasm of breast; Z80.8 Family history of malignant neoplasm of other organs or systems
CPT/HCPCS: 77063; 77067; 77080

== ENCOUNTER 2024-06-17 07:07 | Outpatient (OUT) | payer OTHER, SELFPAY ==
--- OUTSIDE RECORDS SUMMARY | 2024-06-17 07:10 | XMS_ITS | CCD ---
Author Organization [facility] Care Team Providers Care Bus System Operator Name Role Phone DARCIE ., DR HUA [...] Unavailable DARCIE ., DR HUA Admitting Unavailable SIGEL, DR ROSSANA [employer] Unavailable HOY ., [...] Unavailable DIANE ., DR MORENO Admitting Unavailable SIGEL, DR ROSSANA Teague Consult[employer] Unavailable MD Josh Hong Primary Care Provider [phone] Ly, DO Elizabeth Perez Attending Provider DO Javid Watson Attending Provider [phone] Brit, Elizabeth Perez Admitting Unavailable Elizabeth Perea Attending Unavailable Josh Hong Primary Care Unavailable Javid Watson Admitting Unavailable Javid Watson Attending Unavailable Josh Hong Primary Care Unavailable Josh Hong MD Primary Care Provider [phone] JAVID WATSON Attending Unavailable JAVID WATSON Attending Unavailable MAY JORGE Attending Unavailable MAY JORGE Attending Unavailable Allergies Allergy Classification Reported Allergen(s) Allergy Type Date of Onset Reaction(s) Facility (2 sources) Fluconazole Drug Allergy 2 [facility] Repository (1 source) levoFLOXacin Drug Allergy [facility] Repository (1 source) levoFLOXacin Drug Allergy 4 [facility] Repository (4 sources) Fluconazole Propensity to adverse [...] 2 tablets by mouth once daily Vitamin O72-Kwaxz Acid Active 2 TAB PO Daily October [...] 07-03-2022 Episodic Other aftercare (1 source) Other half-way (current) drug therapy; Translations: [OTH CUSTODIAL CURRENT DRUG THERAPY] Onset: 07-03-2022 Episodic Other aftercare (1 source) 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; Translations: [CUSTODIAL USE ORAL HYPOGLYCEMIC DX] Onset: 07-03-2022 Episodic [...] HORMONEon 1 07-17-2023 TSH Qn 2.469 m[IU]/L [facility] Kevin 12-26-2023 L Specimen: [id number] Received: 12/29/23 Status: ANUSHA Collier Num: [id number] Spec Type: Surgical Subm Dr: Javid Watson Tissues: A Fallopian Tube Biopsy (RT TUBE REMNANT) Procedures: HE/2, Gross/Micro L4 Age/ Patient Sex Location Account Attending Physician Eliza Perera 53/F LABELL [id number] Javid Watson SPEC NUM: [id number] RECD: 12/29/23 STATUS: MARISSAErnie COLLIER NUM: [id number] CECIEL: 12/26/[address]: Javid Watson ENTERED: 12/29/[address] [facility] [address]: Glenda,Lab SPEC TYPE: Surgical DEPT: [...] fluid. No normal tubal mucosa is identified. 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 CPT Codes 62110 Specimen: [id number] Received: 12/29/23 Status: ANUSHA Collier Num: [id number] Spec Type: Surgical Subm Dr: Javid Watson Tissues: A Fallopian Tube Biopsy (RT TUBE REMNANT) Procedures: KELBY/Gigi, Cindy/Sandra L4 Patient: Eliza Perera [id number] (Continued) Signed (signature on file) Seth Blanton MD 12/30/231749 Normal [facility] Kevin 10-21-2023 L Specimen: [id number] Received: 10/21/23 Status: ANUSHA Collier Num: [id number] Spec Type: Surgical Subm Dr: Elizabeth Perea DO Tissues: A Small Intestine - Biopsy/Polyp (SMALL BOWEL) B GASTRIC FOR HP (GASTRIC HP) C Gastric Biopsy (GASTRIC POLYP) Procedures: HE/6, Gross/Micro L4/3, H PYLORI, IHC First AB Age/ Patient Sex Location Account Attending Physician Eliza Perera 52/F [id number] Elizabeth Perea DO SPEC NUM: [id number] RECD: 10/21/23 STATUS: ANUSHA COLLIER NUM: [id number] CECILE: 10/21/23- SUBM DR: Elizabeth Perea DO ENTERED: 10/21/[address] [facility] [address]: SPEC TYPE: Surgical DEPT: S [...] tissue fragment, entirely submitted in B1. Specimen: [id number] Received: 10/21/23 Status: ANUSHA Collier Num: [id number] Spec Type: Surgical Subm Dr: Elizabeth Perea DO Tissues: A Small Intestine - Biopsy/Polyp (SMALL BOWEL) B GASTRIC FOR HP (GASTRIC HP) C Gastric Biopsy (GASTRIC POLYP) Procedures: HE/6, Gross/Micro L4/3, H PYLORI, IHC First AB Patient: Eliza Perera [id number] (Continued) Specimen: [id number] Received: 10/21/23 (Continued) Gross Description (Continued) Signed (signature on file) Rossana Solares MD 10/22/23 1633 Specimen: [id number] Received: 10/21/23 Status: ANUSHA Collier Num: [id number] Spec Type: Surgical Subm Dr: Elizabeth Perea DO Tissues: A Small Intestine - Biopsy/Polyp (SMALL BOWEL) B GASTRIC FOR HP (GASTRIC HP) C Gastric Biopsy (GASTRIC POLYP) Procedures: HE/6, Gross/Micro L4/3, H PYLORI, IHC First AB Patient: Eliza Perera [id number] (Continued) Specimen: [id number] Received: 10/21/23-1429 (Continued) Gross Description (Continued) C. Further labeled gastric polyp is a 0.4 x 0.2 x 0.1 cm menjivar mucosal tissue fragment, entirely submitted in C1. Clinical history: Rule out celiac, rule out H. pylori. CPT Codes 69802c7, 42106 Specimen: [id number] Received: 10/21/23 Status: ANUSHA Collier Num: [id number] Spec Type: Surgical Subm Dr: Elizabeth Perea DO Tissues: A Small Intestine - Biopsy/Polyp (SMALL BOWEL) B GASTRIC FOR HP (GASTRIC HP) C Gastric Biopsy (GASTRIC POLYP) Procedures: HE/6, Gross/Micro L4/3, H PYLORI, IHC First AB Patient: Eliza Perera [id number] (Continued) Signed (signature on file) Rossana Solares MD 10/22/23 [facility]3 Normal [facility] Cytology Cervical or vaginal smear or scraping studyon 05-14-2023 [facility] VC VENOUS REFLUX RT [facility] VC VENOUS REFLUX RT LMT Patient: ELIZA PERERA Exam Date: 10/30/2022 : 1970 Gender:F Ordering : DR JOSH HONG . Admission #: [id number] Family : Order #: [id number] CLICK HERE TO VIEW EXAM RADIOLOGY REPORT [...] Compressibility: Normal. Flow: Moderate deep venous reflux. Investment Professional: None. Tech Note: Incompetent varicose vein lateral [...] MD on 10/30/2022 at 12:59 Normal [facility] CBC AUTO DIFFon 07-04-2022 BASO # 0.1 103/ul Normal 0.0-0.1 [facility] Comment on above: Performed By: #### T SH #### [facility] [address] [address] [address] Marlene Blanton Basophils/100 WBC (Bld) 0.6 % Normal 0.2-2.0 [facility] Comment on above: Performed By: #### T SH #### [facility] [address] [address] [address] Marlene Blanton EO # 0.0 103/ul Normal 0.0-0.7 [facility] Comment on above: Performed By: #### T SH #### [facility] [address] [place] [address] Dr. Marlene Blanton Eosinophils/100 WBC (Bld) 0.0 % Critically low 0.9-7.0 [facility] Comment on above: Performed By: #### T SH #### [facility] [address] [place] [address] Dr. Marlene Blanton Erythrocyte distribution width (RBC) [Ratio] 13.3 % Normal 11.0-15.0 [facility] Comment on above: Performed By: #### T SH #### [facility] [address] [place] [address] Dr. Marlene Blanton Hematocrit (Bld) [Volume fraction] 42.3 % Normal 36.0-48.0 [facility] Comment on above: Performed By: #### T SH #### [facility] [address] [place] [address] Dr. Marlene Blanton Hemoglobin (Bld) [Mass/Vol] 13.0 g/dL Normal 12.0-16.0 [facility] Comment on above: Performed By: #### T SH #### [facility] [address] [place] [address] Dr. Marlene Blanton IG # 0.04 10e3/ul Critically high 0.00-0.03 [facility] Comment on above: Performed By: #### T SH #### [facility] [address] [place] [address] Dr. Marlene Blanton IG % 0.4 % Normal 0.0-0.5 [facility] Comment on above: Performed By: #### T SH #### [facility] [address] [place] [address] Dr. Marlene Blanton LYMPH # 2.0 103/ul Normal 1.2-3.8 [facility] Comment on above: Performed By: #### T SH #### [facility] [address] [place] [address] Dr. Marlene Blanton Lymphocytes/100 WBC (Bld) 19.0 % Critically low 20.5-60.0 [facility] Comment on above: Performed By: #### T SH #### [facility] [address] [place] [address] Dr. Marlene Blanton MANUAL DIFF REQ NO Normal [facility] Comment on above: Performed By: #### T SH #### [facility] [address] [place] [address] Dr. Marlene Blanton MCH (RBC) [Entitic mass] 29.6 pg Normal 26.7-34.0 [facility] Comment on above: Performed By: #### T SH #### [facility] [address] [place] [address] Dr. Marlene Blanton MCHC (RBC) [Mass/Vol] 30.7 g/dL Normal 29.9-35.2 [facility] Comment on above: Performed By: #### T SH #### [facility] [address] [place] [address] Dr. Marlene Blanton MCV (RBC) [Entitic vol] 96.4 fL Normal 81.0-99.0 [facility] Comment on above: Performed By: #### T SH #### [facility] [address] [place] [address] Dr. Marlene Blanton MONO # 0.7 103/ul Normal 0.3-0.8 [facility] Comment on above: Performed By: #### T SH #### [facility] [address] [place] [address] Dr. Marlene Blanton Monocytes/100 WBC (Bld) 6.6 % Normal 1.7-12.0 [facility] Comment on above: Performed By: #### T SH #### [facility] [address] [place] [address] Dr. Marlene Blanton NEUT # 7.7 103/ul Critically high 1.4-6.5 [facility] Comment on above: Performed By: #### T SH #### [facility] [address] [place] [address] Dr. Marlene Blanton Neutrophils/100 WBC (Bld) 73.4 % Normal 43.0-75.0 [facility] Comment on above: Performed By: #### T SH #### [facility] [address] [place] [address] Dr. Marlene Blanton Platelet mean volume (Bld) [Entitic vol] 8.9 fL Critically low 9.5-13.5 [facility] Comment on above: Performed By: #### T SH #### [facility] [address] [place] [address] Dr. Marlene Blanton PLT 288 103/ul Normal 150-450 [facility] Comment on above: Performed By: #### T SH #### [facility] [address] [place] [address] Dr. Marlene Blanton RBC 4.39 106/ul Normal 4.20-5.40 [facility] Comment on above: Performed By: #### T SH #### [facility] [address] [place] [address] Dr. Marlene Blanton WBC 10.5 103/ul Normal 4.0-11.0 [facility] Comment on above: Performed By: #### T SH #### [facility] [address] [place] [address] Dr. Marlene Blanton FREE T4on 07-04-2022 Free T4 [Mass/Vol] 0.98 ng/dL Normal 0.76-1.46 [facility] Comment on above: Performed By: #### F T4 #### [facility] [address] [place] [address] Dr. Marlene Blanton PROTIMEon 07-04-2022 INR Coag (PPP) [Relative time] 0.95 {INR} Normal [facility] Comment on above: Performed By: #### P T, PTT #### [facility] [address] [place] [address] Dr. Marlene Blanton INR GUIDELINES SEE BELOW Normal [facility] Comment on above: Result Comment: GLEN RED INR: 2.0 - 3.0 CONDITIONS NOT LISTED BELOW 2.5 - 3.5 FOR PROSTHETIC HEART VALVE REPLACEMENT 2.5 - 3.5 RECURRENT THROMBOSIS Performed By: #### P T, PTT #### [facility] [address] [place] [address] Dr. Marlene Blanton PT Coag (PPP) [Time] 10.1 s Normal 9.0-11.6 [facility] Comment on above: Performed By: #### P T, PTT #### [facility] [address] [place] [address] Dr. Marlene Blanton PTTon 07-04-2022 aPTT Coag (Bld) [Time] 27.2 s Normal 22.3-36.2 [facility] Comment on above: Performed By: #### P T, PTT #### [facility] [address] [place] [address] Dr. Marlene Blanton TSHon 07-04-2022 TSH 1.916 uIU/mL Normal 0.358-3.740 [facility] Comment on above: Performed By: #### T SH #### [facility] [address] [place] [address] Dr. Marlene Blanton BUNon 06-21-2022 Urea nitrogen [Mass/Vol] 8.0 mg/dL Normal 7.0-18.0 [facility] Comment on above: Performed By: #### C BC #### [facility] [address] [place] [address] Dr. Marlene Blanton CBC AUTO DIFFon 06-21-2022 BASO # 0.0 103/ul Normal 0.0-0.1 [facility] Comment on above: Performed By: #### T SH #### [facility] [address] [place] [address] Dr. Marlene Blanton Basophils/100 WBC (Bld) 0.2 % Normal 0.2-2.0 [facility] Comment on above: Performed By: #### T SH #### [facility] [address] [place] [address] Dr. Marlene Blanton EO # 0.0 103/ul Normal 0.0-0.7 [facility] Comment on above: Performed By: #### T SH #### [facility] [address] [place] [address] Dr. Marlene Blanton Eosinophils/100 WBC (Bld) 0.1 % Critically low 0.9-7.0 [facility] Comment on above: Performed By: #### T SH #### [facility] [address] [place] [address] Dr. Marlene Blanton Erythrocyte distribution width (RBC) [Ratio] 13.4 % Normal 11.0-15.0 [facility] Comment on above: Performed By: #### T SH #### [facility] [address] [place] [address] Dr. Marlene Blanton Hematocrit (Bld) [Volume fraction] 33.6 % Critically low 36.0-48.0 [facility] Comment on above: Performed By: #### T SH #### [facility] [address] [place] [address] Dr. Marlene Blanton Hemoglobin (Bld) [Mass/Vol] 10.8 g/dL Critically low 12.0-16.0 [facility] Comment on above: Result Comment: post surgery Performed By: #### T SH #### [facility] [address] [place] [address] Dr. Marlene Blanton IG # 0.06 10e3/ul Critically high 0.00-0.03 [facility] Comment on above: Performed By: #### T SH #### [facility] [address] [place] [address] Dr. Marlene Blanton IG % 0.5 % Normal 0.0-0.5 [facility] Comment on above: Performed By: #### T SH #### [facility] [address] [place] [address] Dr. Marlene Blanton LYMPH # 2.0 103/ul Normal 1.2-3.8 [facility] Comment on above: Performed By: #### T SH #### [facility] [address] [place] [address] Dr. Marlene Blanton Lymphocytes/100 WBC (Bld) 16.1 % Critically low 20.5-60.0 [facility] Comment on above: Performed By: #### T SH #### [facility] [address] [place] [address] Dr. Marlene Blanton MANUAL DIFF REQ NO Normal [facility] Comment on above: Performed By: #### T SH #### [facility] [address] [address] [address] Marlene Blanton MCH (RBC) [Entitic mass] 29.0 pg Normal 26.7-34.0 [facility] Comment on above: Performed By: #### T SH #### [facility] [address] [place] [address] Dr. Marlene Blanton MCHC (RBC) [Mass/Vol] 32.1 g/dL Normal 29.9-35.2 [facility] Comment on above: Performed By: #### T SH #### [facility] [address] [place] [address] Dr. Marlene Blanton MCV (RBC) [Entitic vol] 90.1 fL Normal 81.0-99.0 [facility] Comment on above: Performed By: #### T SH #### [facility] [address] [place] [address] Dr. Marlene Blanton MONO # 0.7 103/ul Normal 0.3-0.8 [facility] Comment on above: Performed By: #### T SH #### [facility] [address] [place] [address] Dr. Marlene Blanton Monocytes/100 WBC (Bld) 5.3 % Normal 1.7-12.0 [facility] Comment on above: Performed By: #### T SH #### [facility] [address] [place] [address] Dr. Marlene Blanton NEUT # 9.7 103/ul Critically high 1.4-6.5 [facility] Comment on above: Performed By: #### T SH #### [facility] [address] [place] [address] Dr. Marlene Blanton Neutrophils/100 WBC (Bld) 77.8 % Critically high 43.0-75.0 [facility] Comment on above: Performed By: #### T SH #### [facility] [address] [place] [address] Dr. Marlene Blanton Platelet mean volume (Bld) [Entitic vol] 8.5 fL Critically low 9.5-13.5 [facility] Comment on above: Performed By: #### T SH #### [facility] [address] [place] [address] Dr. Marlene Blanton PLT 248 103/ul Normal 150-450 [facility] Comment on above: Performed By: #### T SH #### [facility] [address] [place] [address] Dr. Marlene Blanton RBC 3.73 106/ul Critically low 4.20-5.40 [facility] Comment on above: Performed By: #### T SH #### [facility] [address] [place] [address] Dr. Marlene Blanton WBC 12.4 103/ul Critically high 4.0-11.0 [facility] Comment on above: Performed By: #### T SH #### [facility] [address] [place] [address] Dr. Marlene Blanton CREATININEon 06-21-2022 Creatinine [Mass/Vol] 0.87 mg/dL Normal 0.55-1.02 [facility] Comment on above: Performed By: #### C BC #### [facility] [address] [place] [address] Dr. Marlene Blanton EGFR-AF INDONESIAN >60 Normal >=60 [facility] Comment on above: Performed By: #### C BC #### [facility] [address] [place] [address] Dr. Marlene Blanton EGFR-NON AF INDONESIAN >60 Normal >=60 [facility] Comment on above: Performed By: #### C BC #### [facility] [address] [place] [address] Dr. Marlene Blanton CBC AUTO DIFFon 06-19-2022 BASO # 0.1 103/ul Normal 0.0-0.1 [facility] Comment on above: Performed By: #### C BC #### [facility] [address] [place] [address] Dr. Marlene Blanton Basophils/100 WBC (Bld) 0.5 % Normal 0.2-2.0 [facility] Comment on above: Performed By: #### C BC #### [facility] [address] [place] [address] Dr. Marlene Blanton EO # 0.0 103/ul Normal 0.0-0.7 [facility] Comment on above: Performed By: #### C BC #### [facility] [address] [place] [address] Dr. Marlene Blanton Eosinophils/100 WBC (Bld) 0.1 % Critically low 0.9-7.0 [facility] Comment on above: Performed By: #### C BC #### [facility] [address] [place] [address] Dr. Marlene Blanton Erythrocyte distribution width (RBC) [Ratio] 13.4 % Normal 11.0-15.0 [facility] Comment on above: Performed By: #### C BC #### [facility] [address] [place] [address] Dr. Marlene Blanton Hematocrit (Bld) [Volume fraction] 39.8 % Normal 36.0-48.0 [facility] Comment on above: Performed By: #### C BC #### [facility] [address] [place] [address] Dr. Marlene Blanton Hemoglobin (Bld) [Mass/Vol] 13.2 g/dL Normal 12.0-16.0 [facility] Comment on above: Performed By: #### C BC #### [facility] [address] [place] [address] Dr. Marlene Blanton IG # 0.05 10e3/ul Critically high 0.00-0.03 [facility] Comment on above: Performed By: #### C BC #### [facility] [address] [place] [address] Dr. Marlene Blanton IG % 0.5 % Normal 0.0-0.5 [facility] Comment on above: Performed By: #### C BC #### [facility] [address] [place] [address] Dr. Marlene Blanton LYMPH # 2.4 103/ul Normal 1.2-3.8 [facility] Comment on above: Performed By: #### C BC #### [facility] [address] [place] [address] Dr. Marlene Blanton Lymphocytes/100 WBC (Bld) 24.7 % Normal 20.5-60.0 [facility] Comment on above: Performed By: #### C BC #### [facility] [address] [place] [address] Dr. Marlene Blanton MANUAL DIFF REQ NO Normal [facility] Comment on above: Performed By: #### C BC #### [facility] [address] [place] [address] Dr. Marlene Blanton MCH (RBC) [Entitic mass] 29.7 pg Normal 26.7-34.0 [facility] Comment on above: Performed By: #### C BC #### [facility] [address] [place] [address] Dr. Marlene Blanton MCHC (RBC) [Mass/Vol] 33.2 g/dL Normal 29.9-35.2 [facility] Comment on above: Performed By: #### C BC #### [facility] [address] [place] [address] Dr. Marlene Blanton MCV (RBC) [Entitic vol] 89.4 fL Normal 81.0-99.0 [facility] Comment on above: Performed By: #### C BC #### [facility] [address] [place] [address] Dr. Marlene Blanton MONO # 0.8 103/ul Normal 0.3-0.8 [facility] Comment on above: Performed By: #### C BC #### [facility] [address] [place] [address] Dr. Marlene Blanton Monocytes/100 WBC (Bld) 7.9 % Normal 1.7-12.0 [facility] Comment on above: Performed By: #### C BC #### [facility] [address] [place] [address] Dr. Marlene Blanton NEUT # 6.3 103/ul Normal 1.4-6.5 [facility] Comment on above: Performed By: #### C BC #### [facility] [address] [place] [address] Dr. Marlene Blanton Neutrophils/100 WBC (Bld) 66.3 % Normal 43.0-75.0 [facility] Comment on above: Performed By: #### C BC #### [facility] [address] [place] [address] Dr. Marlene Blanton Platelet mean volume (Bld) [Entitic vol] 8.3 fL Critically low 9.5-13.5 [facility] Comment on above: Performed By: #### C BC #### [facility] [address] [place] [address] Dr. Marlene Blanton PLT 300 103/ul Normal 150-450 [facility] Comment on above: Performed By: #### C BC #### [facility] [address] [place] [address] Dr. Marlene Blanton RBC 4.45 106/ul Normal 4.20-5.40 [facility] Comment on above: Performed By: #### C BC #### [facility] [address] [place] [address] Dr. Marlene Blanton WBC 9.6 103/ul Normal 4.0-11.0 [facility] Comment on above: Performed By: #### C BC #### [facility] [address] [place] [address] Dr. Marlene Blanton PREG QUANT HCGon 06-19-2022 HCG QUANT 1 mIU/mL Normal [facility] Comment on above: Performed By: #### P REGQNT #### [facility] [address] [place] [address] Dr. Marlene Blanton HCG RANGE SEE BELOW Normal [facility] Comment on above: Result Comment: 5-50 0.2-1 WEEK 50-500 1-2 WEEKS 100-5,000 2-3 WEEKS 500-10,000 3-4 WEEKS 1,000-50,000 4-5 WEEKS 10,000-100,000 5-6 WEEKS 15,000-200,000 6-8 WEEKS 10,000-100,000 2-3 MONTHS Performed By: #### P REGQNT #### [facility] [address] [place] [address] Dr. Marlene Blanton TYPE AND SCREENon 06-19-2022 TYPE AND SCREEN Negative Normal [facility] Comment on above: Performed By: #### C BC #### [facility] [address] [place], [place] [address] Dr. Marlene Blanton ASYMPTOMATIC COVID-19 ANTIGE Non 05-28-2022 EUA Statement SEE BELOW Normal [facility] Comment on above: Result Comment: This test [...] sooner. Performed By: #### C BC #### [facility] [address] [place], [place] [address] Dr. Marlene Blanton SARS-CoV-2 (COVID-19) RNA AUSTIN+probe Ql (Unsp spec) Positive Critically abnormal NEGATIVE [facility] Comment on above: Result Comment: SARS -CoV-2 antigen present; does not rule out coinfection with other pathogens. Performed By: #### C BC #### [facility] [address] [address] [address] Marlene Blanton [facility]24 SARS-CoV-2 (COVID-19) RNA [place]UST[place]+probe Ql (Unsp spec) Detected Critically abnormal NOT DETECTED [facility] Comment on above: Result Comment: This test is not yet approved or cleared by the [place] FDA. When there are no FDA-approved or cleared tests available, and other criteria are met, FDA can make tests available under an emergency access mechanism called an Emergency Use Authorization (EUA). The EUA for this test is supported by the [place] of Health and Human Service's declaration that [...] used). Performed By: #### C VDTB #### [facility] [address] [place] [address] Dr. Marlene Blanton PAP ACOG PANEL 2: 30 to 65on 05-15-2022 . . Normal [facility] Comment on above: Result Comment: Perf ormed at: WB Performed By: #### [id number] #### [facility] [address] [place] [address] Dr. Marlene Blanton Age Gdln ACOG Testing 30-65 [facility] Comment on above: Performed By: #### [id number] #### [facility] [address] [place] [address] Dr. Marlene Blanton DIAGNOSIS: Comment [facility] Comment on above: Result Comment: NEGA TIVE FOR INTRAEPITHELIAL LESION OR MALIGNANCY. FUNGAL ORGANISMS MORPHOLOGICALLY CONSISTENT WITH BAILEY SPECIES ARE PRESENT. Performed at: WB Performed By: #### [id number] #### [facility] [address] [place] [address] Dr. Marlene Blanton HPV Aptima Negative Normal Negative [facility] Comment on above: Result Comment: This nucleic acid amplification test detects fourteen high-risk HPV types (16,18,31,33,35,39,45,51,52,56,58,59,66,68) without differentiation. Performed at: =G Performed By: #### [id number] #### [facility] [address] [place] [address] Dr. Marlene Blanton HPV Genotype Reflex Comment [facility] Comment on above: Result Comment: Crit eria not met, HPV Genotype not performed. Performed at: WB Performed By: #### [id number] #### [facility] [address] [place] [address] Dr. Marlene Blanton Methodology: Comment [facility] Comment on above: Result Comment: This liquid based ThinPrep(R) pap test was screened with the use of an image guided system. Performed at: WB Performed By: #### [id number] #### [facility] [address] [place] [address] Dr. Marlene Blanton Note: Comment Normal [facility] Comment on above: Result Comment: The Pap smear is a screening test designed to aid in the detection of premalignant and malignant conditions of the uterine cervix. It is not a diagnostic procedure and should not be used as the sole means of detecting cervical cancer. Both false-positive and false-negative reports do occur. . Performed at: WB Performed By: #### [id number] #### [facility] [address] [place] [address] Dr. Marlene Blanton Performed by: Comment Normal [facility] Comment on above: Result Comment: Marycruz Gillespie Therapist Radiation (ASCP) Performed at: WB Performed By: #### [id number] #### [facility] [address] [place] [address] Dr. Marlene Blanton Specimen adequacy: Comment Normal [facility] Comment on above: Result Comment: Sati sfactory for evaluation. No endocervical component is identified. Performed at: WB Performed By: #### [id number] #### [facility] [address] [place] [address] Dr. Marlene Blanton MG MAMM SCREEN 3D JENNIFER CADon 05-14-2022 MG MAMM SCREEN 3D JENNIFER CAD Patient: ELIZA PERERA Exam Date: 05/14/2022 : 1970 Gender:F Ordering : DR JAVID WATSON . Admission #: [id number] Family : DR JOSH HONG . Order #: [id number] CLICK HERE TO VIEW EXAM RADIOLOGY REPORT [...] melanoma cancer at age 19. LOCATION: [facility] BREAST COMPOSITION: Heterogeneously dense,which may obscure [...] M.D. on 05/14/2022 at 14:48 Normal [facility] US PELVIS AND TRANSVAGon US PELVIS [...] ROSSANA VELÁSQUEZ Date: 2022-05-09 13:04 Normal [facility] CBC AUTO DIFFon 05-08-2022 BASO # 0.1 103/ul Normal 0.0-0.1 [facility] Comment on above: Performed By: #### T SH #### [facility] [address] [address] [address] Marlene Blanton Basophils/100 WBC (Bld) 0.7 % Normal 0.2-2.0 [facility] Comment on above: Performed By: #### T SH #### [facility] [address] [address] [address] Marlene Blanton EO # 0.0 103/ul Normal 0.0-0.7 [facility] Comment on above: Performed By: #### T SH #### [facility] [address] [place] [address] Dr. Marlene Blanton Eosinophils/100 WBC (Bld) 0.0 % Critically low 0.9-7.0 [facility] Comment on above: Performed By: #### T SH #### [facility] [address] [place] [address] Dr. Marlene Blanton Erythrocyte distribution width (RBC) [Ratio] 13.4 % Normal 11.0-15.0 [facility] Comment on above: Performed By: #### T SH #### [facility] [address] [place] [address] Dr. Marlene Blanton Hematocrit (Bld) [Volume fraction] 42.1 % Normal 36.0-48.0 [facility] Comment on above: Performed By: #### T SH #### [facility] [address] [place] [address] Dr. Marlene Blanton Hemoglobin (Bld) [Mass/Vol] 13.8 g/dL Normal 12.0-16.0 [facility] Comment on above: Performed By: #### T SH #### [facility] [address] [place] [address] Dr. Marlene Blanton IG # 0.04 10e3/ul Critically high 0.00-0.03 [facility] Comment on above: Performed By: #### T SH #### [facility] [address] [place] [address] Dr. Marlene Blanton IG % 0.4 % Normal 0.0-0.5 [facility] Comment on above: Performed By: #### T SH #### [facility] [address] [place] [address] Dr. Marlene Blanton LYMPH # 2.1 103/ul Normal 1.2-3.8 [facility] Comment on above: Performed By: #### T SH #### [facility] [address] [place] [address] Dr. Marlene Blanton Lymphocytes/100 WBC (Bld) 23.3 % Normal 20.5-60.0 [facility] Comment on above: Performed By: #### T SH #### [facility] [address] [place] [address] Dr. Marlene Blanton MANUAL DIFF REQ NO Normal [facility] Comment on above: Performed By: #### T SH #### [facility] [address] [place] [address] Dr. Marlene Blanton MCH (RBC) [Entitic mass] 29.3 pg Normal 26.7-34.0 [facility] Comment on above: Performed By: #### T SH #### [facility] [address] [place] [address] Dr. Marlene Blanton MCHC (RBC) [Mass/Vol] 32.8 g/dL Normal 29.9-35.2 [facility] Comment on above: Performed By: #### T SH #### [facility] [address] [place] [address] Dr. Marlene Blanton MCV (RBC) [Entitic vol] 89.4 fL Normal 81.0-99.0 [facility] Comment on above: Performed By: #### T SH #### [facility] [address] [place] [address] Dr. Marlene Blanton MONO # 0.7 103/ul Normal 0.3-0.8 [facility] Comment on above: Performed By: #### T SH #### [facility] [address] [place] [address] Dr. Marlene Blanton Monocytes/100 WBC (Bld) 7.3 % Normal 1.7-12.0 [facility] Comment on above: Performed By: #### T SH #### [facility] [address] [place] [address] Dr. Marlene Blanton NEUT # 6.1 103/ul Normal 1.4-6.5 [facility] Comment on above: Performed By: #### T SH #### [facility] [address] [place] [address] Dr. Marlene Blanton Neutrophils/100 WBC (Bld) 68.3 % Normal 43.0-75.0 [facility] Comment on above: Performed By: #### T SH #### [facility] [address] [place] [address] Dr. Marlene Blanton Platelet mean volume (Bld) [Entitic vol] 8.8 fL Critically low 9.5-13.5 [facility] Comment on above: Performed By: #### T SH #### [facility] [address] [place] [address] Dr. Marlene Blanton PLT 310 103/ul Normal 150-450 [facility] Comment on above: Performed By: #### T SH #### [facility] [address] [place] [address] Dr. Marlene Blanton RBC 4.71 106/ul Normal 4.20-5.40 [facility] Comment on above: Performed By: #### T SH #### [facility] [address] [place] [address] Dr. Marlene Blanton WBC 9.0 103/ul Normal 4.0-11.0 [facility] Comment on above: Performed By: #### T SH #### [facility] [address] [place] [address] Dr. Marlene Blanton FREE T4on 05-08-2022 Free T4 [Mass/Vol] 1.09 ng/dL Normal 0.76-1.46 [facility] Comment on above: Performed By: #### T SH #### [facility] [address] [place] [address] Dr. Marlene Blanton PREG QUANT HCGon 05-08-2022 HCG QUANT 1 mIU/mL Normal [facility] Comment on above: Performed By: #### T SH, PREGQNT #### [facility] [address] [place] [address] Dr. Marlene Blanton HCG RANGE SEE BELOW Normal [facility] Comment on above: Result Comment: 5-50 0.2-1 WEEK 50-500 1-2 WEEKS 100-5,000 2-3 WEEKS 500-10,000 3-4 WEEKS 1,000-50,000 4-5 WEEKS 10,000-100,000 5-6 WEEKS 15,000-200,000 6-8 WEEKS 10,000-100,000 2-3 MONTHS Performed By: #### T SH, PREGQNT #### [facility] [address] [place] [address] Dr. Marlene Blanton PROTIMEon 05-08-2022 INR Coag (PPP) [Relative time] 0.95 {INR} Normal [facility] Comment on above: Performed By: #### C BC #### [facility] [address] [place] [address] Dr. Marlene Blanton INR GUIDELINES SEE BELOW Normal [facility] Comment on above: Result Comment: GLEN RED INR: 2.0 - 3.0 CONDITIONS NOT LISTED BELOW 2.5 - 3.5 FOR PROSTHETIC HEART VALVE REPLACEMENT 2.5 - 3.5 RECURRENT THROMBOSIS Performed By: #### C BC #### [facility] [address] [place] [address] Dr. Marlene Blanton PT Coag (PPP) [Time] 10.3 s Normal 9.0-11.6 [facility] Comment on above: Performed By: #### C BC #### [facility] [address] [place] [address] Dr. Marlene Blanton PTTon 05-08-2022 aPTT Coag (Bld) [Time] 26.3 s Normal 22.3-36.2 [facility] Comment on above: Performed By: #### C BC #### [facility] [address] [place] [address] Dr. Marlene Blanton TSHon 05-08-2022 TSH 4.001 uIU/mL Critically high 0.358-3.740 [facility] Comment on above: Performed By: #### T SH, PREGQNT #### [facility] [address] [place] [address] Dr. Marlene Blanton Reminderson 06-01-2020 Reminders - From: Jesenia Price LPN To: GSN - Clinical; Sent: 06/01/2020 08:20:44 EST Show up: 04/24/2030 09:00:00 EDT Subject: colonoscopy recall Due Date/Time: 05/24/2030 09:00:00 EST Reminder/Recall Patient is due for screening colonoscopy 05/24/2030. Normal [facility] Ambulatory Clinical Summaryo n 05-31-2020 Ambulatory Clinical Summary {[id number]}CD:[id number] Normal [facility] General Surgery Office/Clini c Noteon [...] MD Only if needed [address] [place] [address]- Additional Instructions: Problem List/Past Medical History Ongoing [...] neoplasm of female breast: Mother. Normal [facility] Comment on above: Result Comment: Elec tronically Signed By: GABREIL LAUREN, Corby Salguero\.br\Date and Time Signed: 05/31/20 16:31 EST Pathology Noteon 05-29-2020 Pathology Note [id number]#1.00C D:127 Normal [facility] Outside Colonoscopyon 2019 Outside Colonoscopy [id number] D:127 Normal [facility] Lab Reportson 05-25-2020 Lab Reports [id number]#1.00C D:127 [facility] Provider Letter FTon 05-12 Provider Letter [facility] Josh Hong, [address] [place] [address] [place] [address] Re: ELIZA PERERA Date of : 1970 Thank you for your referral of Eliza Perear who was seen on consultation on May 09, 2020, for rectal bleeding, abdominal pain with bowel movements. A colonoscopy is ordered for further evaluation. I will be happy to follow Eliza. Sincerely, Corby Buitrago MD General Surgery Normal [facility] Ambulatory Clinical Summaryo n 05-09-2020 Ambulatory Clinical Summary {[id number]}CD:[id number] Normal [facility] General Surgery Office/Clini c Noteon [...] available Patient Education Exercise to Stay Healthy, Styu-rx-Uzea Problem List/Past Medical History Ongoing Abdominal pain, [...] neoplasm of female breast: Mother. Normal [facility] Comment on above: Result Comment: [...] Document Reviewed: 07/12/2011 ExitCare? Patient Information ?2013 Friendly Score. Normal [facility] Physician Referralon 020 Physician Referral [id number] D:127 Normal [facility] Vital Signs Date Time Vital Sign Value Performing Clinician Ismael kunz 05-17-2024 08:51-0500 Body mass index (BMI) [Ratio] 27 kg/m2 May HURD Work Phone: [facility] 05-17-2024 08:51-0500 Body weight 78.2 kg May HURD Work Phone: [facility] 05-17-2024 08:51-0500 Diastolic blood pressure 60 mm[Hg] May HURD Work Phone: [facility] 05-17-2024 08:51-0500 Systolic blood pressure 110 mm[Hg] May HURD Work Phone: [facility] 10-21-2023 14:00-0400 Diastolic blood pressure 72 mm[Hg] MD Josh Hong Work Phone: [facility] 10-21-2023 14:00-0400 Heart rate 77 /min MD Josh Hong Work Phone: [facility] 10-21-2023 14:00-0400 Respiratory rate 16 /min MD Josh Hong Work Phone: [facility] 10-21-2023 14:00-0400 SaO2% (BldA) [Mass fraction] 97 % MD Josh Hong Work Phone: [facility] 10-21-2023 14:00-0400 Systolic blood pressure 121 mm[Hg] MD Josh Hong Work Phone: [facility] 10-21-2023 10:52-0400 Body height 170.18 cm MD Josh Hong Work Phone: [facility] 10-21-2023 10:52-0400 Body weight 79.37 kg MD Josh Hong Work Phone: [facility] 10-03-2023 09:50-0400 Body height 170.18 cm MD Josh Hong Work Phone: [facility] 10-03-2023 09:50-0400 Body mass index (BMI) [Ratio] 28 kg/m2 MD Josh Hong Work Phone: [facility] 10-03-2023 09:50-0400 Body weight 81.19 kg MD Josh Hong Work Phone: [facility] 10-03-2023 09:50-0400 Diastolic blood pressure 79 mm[Hg] MD Josh Hong Work Phone: [facility] 10-03-2023 09:50-0400 Heart rate 74 /min MD Josh Hong Work Phone: [facility] 10-03-2023 09:50-0400 Systolic blood pressure 128 mm[Hg] MD Josh Hong Work Phone: [facility] Encounters Encounter Date Encounter Type Care Provider Facility Start: 05-17-2024 End: 05-17-2024 Nabil HURD Work Phone: [facility] Start: 05-17-2024 End: 05-17-2024 Nabil HURD Work Phone: [facility] Start: 05-17-2024 End: 05-17-2024 Clinisync Result Encounter aMy HURD Work Phone: [facility] External Department Unsolicited [...] 12-26-2023 ambulatory MD Josh Hong Work Phone: [facility] Work Phone: Start: 12-26-2023 End: 12-26-2023 Departed Referred MD Josh Hong Work Phone: [facility] Start: 12-01-2023 End: 12-01-2023 ambulatory JAVID DARCIE Not Available Start: 11-06-2023 End: 11-06-2023 ambulatory JAVID DARCIE Not Available Start: 10-21-2023 Non-patient / Non-visit MD Bennie Hong Work Phone: [facility] Work Phone: Start: 10-21-2023 End: 10-21-2023 Admission to same day surgery center MD Josh Hong Work Phone: [facility] Work Phone: Start: 10-21-2023 End: 10-21-2023 ambulatory MD Josh Hong Work Phone: [facility] Work Phone: Start: 10-03-2023 End: 10-03-2023 Patient encounter procedure MD Josh Hong Work Phone: [facility] Work Phone: Start: 10-30-2022 End: 10-31-[address] JOSH HONG . Facility:[facility] Start: 07-04-2022 End: 07-05-[address] JAVID WATSON . Facility:[facility] Start: 06-21-2022 Encounter for preprocedural laboratory examination DR JAVID WATSON . [facility] Start: 06-20-2022 End: 06-21-[address] JAVID WATSON . Facility:[facility] Start: 06-19-2022 Encounter for preprocedural cardiovascular examination DR JAVID WATSON . [facility] Start: 06-19-2022 End: 06-20-[address] [...] Screening for malign ant neoplasm of colon [facility] Start: 05-14-2028 Screening for malign ant neoplasm of cervix [facility] Start: 05-23-2025 End: 05-23-2025 Patient encounter procedure 05/23/2025 9:00 AM EST Office Visit [facility] [address] [place] [id number] May Jorge PA [address] [place] [address] [facility] Start: 05-21-2024 Screening for malign ant neoplasm of breast Mammogram [facility] Start: 05-17-2024 End: 05-17-2025 CBC W Auto Differential panel - Blood CBC and differential Lab Routine Other fatigue Expected: 05/17/2024 (Approximate), Expires: 05/17/2025 [facility] Comment on above: Expected: 05/17/2024 (Approximate), Expires: 05/17/2025 Start: 05-17-2024 End: 05-17-2025 DXA Skeletal system Views for bone density DEXA bone density Imaging Routine Postmenopausal state Expected: 05/17/2024 (Approximate), Expires: 05/17/2025 [facility] Comment on above: Expected: 05/17/2024 (Approximate), Expires: 05/17/2025 Start: 05-17-2024 End: 07-17-2025 MG Breast - bilateral Screening Bilateral screening mammogram Imaging Routine Breast cancer screening by mammogram Expected: 05/17/2024, Expires: 07/17/2025 [facility] Work Phone: Comment on above: Expected: 05/17/2024 , Expires: 07/17/2025 Start: 05-17-2024 End: 05-17-2025 US for US PELVIS-TRANSVAG IF INDICATED Imaging Routine Left ovarian cyst Expected: 05/17/2024 (Approximate), Expires: 05/17/2025 [facility] Comment on above: Expected: 05/17/2024 (Approximate), Expires: 05/17/2025 Start: 02-22-2024 Influenza vaccination Influenza Vacc ine (#1) [facility] Start: 10-21-2023 [facility] Start: 1970 Screening for malign ant neoplasm of colon [facility] Patient Education Gastritis Stomach polyp s [facility] Work Phone: THIN PREP TIS PAP AN D HR HPV DNA THIN PREP TIS PAP AND HR HPV DNA Pathology and Cytology Routine Well woman exam with routine gynecological exam Ordered: 05/17/2024 [facility] Comment on above: Ordered: 05/17/2024 Thyrotropin [Units/volume] in Serum or Plasma TSH Lab Routine Other fatigue Ordered: 05/17/2024 [facility] Comment on above: Ordered: 05/17/2024 Immunizations Immunization Date Immunization Notes Care Provider Fa [facility] 04-14-2024 influenza virus vacc ine, unspecified formulation May HURD Work Phone: [facility] Payers Date Payer Category Payer Self-pay 2023 Private Health Insurance [employer] [id number] 1970 Unknown [id number] 2.16.840.1.267633.3.579.2. 593 1970 Unknown [id number] 2.16.840.1.002595.3.579.2. 593 1970 Unknown [id number] 2.16.840.1.967496.3.579.2. 593 1970 Unknown [id number] 2.16.840.1.191123.3.579.2. 593 1970 Unknown [id number] 2.16.840.1.527244.3.579.2. 593 1970 Unknown [id number] 2.16.840.1.428173.3.579.2. 593 1970 Unknown [id number] 2.16.840.1.443224.3.579.2. 593 1970 Unknown [id number] 2.16.840.1.382685.3.579.2. 593 1970 Unknown [id number] 2.16.840.1.403119.3.579.2. 593 1970 Unknown [id number] 2.16.840.1.854070.3.579.2. 593 1970 Unknown [id number] 2.16.840.1.266104.3.579.2. 593 1970 Unknown [id number] 2.16.840.1.856922.3.579.2. 1259 1970 Unknown [id number] 2.16.840.1.007348.3.579.2. 1259 1970 Unknown [id number] 2.16.840.1.026875.3.579.2. 1259 1970 Unknown [id number] 2.16.840.1.517263.3.579.2. 1259 1959 Unknown [id number] Unknown [id number] 2.16.840.1.178337.3.579.2. 531 Unknown [id number] 2.16.840.1.036122.3.579.2. 531 Social History Date Type Detail Facility Start: 05-12-2023 End: 10-21-2023 Tobacco smoking status NHIS Never smoked tobacco (finding) [facility] Start: 1970 Sex Assigned At Female F [facility] Start: 01-08-2024 End: 05-17-2024 Alcoholic beverage intake Ex-drinker (finding) [facility] Start: 05-12-2023 End: 11-06-2023 History of Social function [facility] Start: 05-12-2023 End: 11-06-2023 Alcohol [...] nursing note reviewed. Exam conducted with a x ray electronics wireman present. Vitals: Estimated body mass index is [...] of: VANNESSA Sheffield documented in this encounter [facility] Procedure note 10-21-2023 Note Date & Type Note Facility 10-21-[address] [facility] Procedure note 10-21-2023 Note Date & Type Note Facility 10-21-[address] [facility] Clinical Note 06-20-2022 Note Date & Type Note Facility 06-20-2022 Note OPERATIVE NOTE OPERATION DATE: 06/20/2022 PROCEDURE: vNOTES hysterectomy with cystoscopy and bilateral salpingectomy. PREOPERATIVE DIAGNOSIS: Pelvic pressure, menorrhagia, dysmenorrhea, dyspareunia. POSTOPERATIVE DIAGNOSIS: Pelvic pressure, menorrhagia, dysmenorrhea, dyspareunia. ANESTHESIA: General. SURGEON: Javid Watson M.D. PARACHUTE OFFICER: PIYUSH Howell URINE OUTPUT: Yellow and clear. [...] Sponge, lap, needle counts correct x2. [facility] Evaluation note Note Date & Type Note Facility Evaluation note Diagnosis Onset Date Abdominal pain acute Bloating acute GERD (gastroesophageal reflux disease) acute Mucus in stool acute [facility] Work Phone: Evaluation note Note [...] note Note Date/Time October 21, 2023 12:42pm [facility] [address] [place] [address] Gastroenterology H&P Signed Patient: Eliza Perera MR#: [id number] : 1970 Acct:[id number] Age/Sex: 52 / F Adm Date: 4 Loc: Room: Type: [facility] Attending Dr: Elizabeth Perea DO Copies to: [...] signed by Elizabeth Perea DO> 10/21/23 1242 [facility] Work Phone: Summary Purpose Family [...] section and content) DATE CREATED AUTHOR 06/15/2020 [place] [facility] DATE CREATED AUTHOR AUTHOR'S ORGANIZ ATION 11/03/2022 [facility] DATE CREATED AUTHOR AUTHOR'S ORGANIZ ATION 01/05/2024 [facility] DATE CREATED AUTHOR AUTHOR'S ORGANIZ ATION 05/19/2024 [facility] Special[facility] EPIC Care Teams (unrecognized sec [...] December 26, 2023 End: December 26, 2023 Bus 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 [facility]. provides no warranty or guarantee of the accuracy or completeness of information in this document.
--- NOTE | 2024-06-17 07:11 | CT_ITS ---
The [address] [address] Patient Name: RENETTA COELLO MRN: [id number] date: 1970 Sex: F Assigned Patient Location: CT Current Patient Location: CT Accession/Order Number: [id number] Exam Date: 06/17/2024 07:35 Report Date: 06/17/2024 08:20 At the request of: JOSH CONTRERAS Procedure: CT head/brain wo/w con CT head/brain wo/w con, 06/17/2024 7:35 AM EST INDICATION: Brain fog, migraine COMPARISON: Prior MRI of the brain dated 09/26/2021 TECHNIQUE: Axial CT images of the brain from skull base to vertex, including portions of the face and sinuses, were obtained without and with contrast . Multiplanar reformatted images were generated and reviewed as needed. Dose reduction techniques were achieved by using automated exposure control and/or adjustment of mA and/or kV according to patient size and/or use of iterative reconstruction technique. FINDINGS: The cerebral sulci as well as ventricular system are appropriate for age. There is no intracranial mass, mass effect, midline shift, intra or extra-axial fluid collection or hemorrhage. No abnormal enhancing lesion is noted. The visualized portions of orbits, mastoid air cells as well as paranasal sinuses are unremarkable. There is no suspicious osteolytic or osteoblastic lesion. Incidental note of the thickening and nonvisualization of the left fossa of Rosenmuller. CT/CT head/brain wo/w con IMPRESSION: No acute intracranial process is noted. Thickening and nonvisualization of the left fossa of Maharaj Zepeda. ENT consultation and direct visualization is recommended. Electronically authenticated by: TREY MICHAEL Date: 06/17/2024 08:20
== END 2024-06-17 07:08 | disposition home or self-care (01) ==
LOC: CT 07:07
PROVIDERS: PCP Family Medicine; Visit Provider Family Medicine
DX: R41.89 Other symptoms and signs involving cognitive functions and awareness (principal); G43.909 Migraine, unspecified, not intractable, without status migrainosus
CPT/HCPCS: 70470; Q9967

== ENCOUNTER 2024-06-21 08:28 | Outpatient (OUT) | payer OTHER, SELFPAY ==
--- NOTE | 2024-06-21 08:31 | MR_ITS ---
The [address] [address] Patient Name: RENETTA COELLO MRN: [id number] date: 1970 Sex: F Assigned Patient Location: MRI Current Patient Location: Accession/Order Number: [id number] Exam Date: 06/21/2024 08:41 Report Date: 06/22/2024 09:52 At the request of: JOSH CONTRERAS Procedure: MR head/brain wo/w con MR head/brain wo/w con, 06/21/2024 8:41 AM EST INDICATION: Abnormal CT Head, Recurrent Frontal Sinusitis, Migraine COMPARISON: Prior CT of the head dated 06/17/2024 and MRI of the head dated 06/20/2023 TECHNIQUE: Multiplanar, multisequential MRI images of brain were obtained without and with injection of contrast. FINDINGS: The cerebral sulci as well as ventricular system are appropriate for age. There is no restricted diffusion. There is no intracranial mass, mass effect, midline shift, intra or extra-axial fluid collection or large hemorrhage. No abnormal enhancing lesion is noted. No abnormality of the cochlea vestibular nerves or semicircular canal is noted. Normal flow-void in the intracranial vessels is noted. The visualized portions of orbits, mastoid air cells as well as paranasal sinuses are unremarkable. No abnormality of the fossa of Maharaj Zepeda is noted. MR/MR head/brain wo/w con IMPRESSION: No acute intracranial process is noted. No significant abnormality in the current study. Electronically authenticated by: TREY MICHAEL Date: 06/22/2024 09:52
--- OUTSIDE RECORDS SUMMARY | 2024-06-21 08:40 | XMS_ITS | CCD ---
Author Organization [facility] Care Team Providers Care Bioinformatics Analyst Name Role Phone DARCIE ., DR HUA [...] Unavailable DARCIE ., DR HUA Admitting Unavailable POYNETTE, DR ROSSANA Teague Consulting Unavailable HOY ., [...] Unavailable DIANE ., DR MORENO Admitting Unavailable POYNETTE, DR ROSSANA Teague Consulting Unavailable MD Josh Hong Primary Care Provider [phone] Ly, DO Elizabeth Perez Attending Provider [phone] DO Javid Watson Attending Provider Brit, Elizabeth Perez Admitting Unavailable Elizabeth Perea Attending Unavailable Josh Hong Primary Care Unavailable Javid Watson Admitting Unavailable Javid Watson Attending Unavailable Josh Hong Primary Care Unavailable Josh Hong MD Primary Care Provider [phone] JAVID WATSON Attending Unavailable JAVID WATSON Attending Unavailable MAY JORGE Attending Unavailable MAY JORGE Attending Unavailable Allergies Allergy Classification Reported Allergen(s) Allergy Type Date of Onset Reaction(s) Facility (2 sources) Fluconazole Drug Allergy 2 [facility] Repository (1 source) levoFLOXacin Drug Allergy [facility] Repository (1 source) levoFLOXacin Drug Allergy 4 [facility] Repository (4 sources) Fluconazole Propensity to [...] 2 tablets by mouth once daily Vitamin X04-Szvye Acid Active 2 TAB PO Daily October [...] 07-03-2022 Episodic Other aftercare (1 source) Other [facility] (current) drug therapy; Translations: [OTH [facility]IOR LIVING CURRENT DRUG THERAPY] Onset: 07-03-2022 Episodic Other aftercare (1 source) 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 hypoglycemic drugs; Translations: [SENIOR LIVING USE ORAL HYPOGLYCEMIC DX] Onset: 07-03-2022 Episodic [...] HORMONEon 1 07-17-2023 TSH Qn 2.469 m[IU]/L [facility] Kevin 12-26-2023 L Specimen: [id number] Received: 12/29/23 Status: ANUSHA Collier Num: [id number] Spec Type: Surgical Subm Dr: Javid Watson Tissues: A Fallopian Tube Biopsy (RT TUBE REMNANT) Procedures: HE/2, Gross/Micro L4 Age/ Patient Sex Location Account Attending Physician Eliza Perera 53/F LABELL [id number] Javid Watson SPEC NUM: [id number] RECD: 12/29/23 STATUS: MARISSAErnie COLLIER NUM: [id number] CECILE: 12/26/[address]: Javid Watson ENTERED: 12/29/23 [facility] DR: Glenda,Lab SPEC TYPE: Surgical DEPT: [...] fluid. No normal tubal mucosa is identified. Bank Advisor sections are submitted in A1. CPT Codes 83197 Specimen: [id number] Received: 12/29/23 Status: ANUSHA Collier Num: [id number] Spec Type: Surgical Subm Dr: Javid Watson Tissues: A Fallopian Tube Biopsy (RT TUBE REMNANT) Procedures: KELBY/Gigi, Cindy/Sandra L4 Patient: Eliza Perera [id number] (Continued) Signed (signature on file) Seth Blanton MD 12/30/231749 Normal [facility] Kevin 10-21-2023 L Specimen: [id number] Received: 10/21/23 Status: ANUSHA Collier Num: [id number] Spec Type: Surgical Subm Dr: Elizabeth Perea DO Tissues: A Small Intestine - Biopsy/Polyp (SMALL BOWEL) B GASTRIC FOR HP (GASTRIC HP) C Gastric Biopsy (GASTRIC POLYP) Procedures: HE/6, Gross/Micro L4/3, H PYLORI, IHC First AB Age/ Patient Sex Location Account Attending Physician Eliza Perera 52/F [id number] Elizabeth Perea DO SPEC NUM: [id number] RECD: 10/21/23 STATUS: ANUSHA COLLIER NUM: [id number] CECILE: 10/21/23- SUBM DR: Elizabeth Perea DO ENTERED: 10/21/23 [facility] DR: SPEC TYPE: Surgical DEPT: S [...] tissue fragment, entirely submitted in B1. Specimen: [id number] Received: 10/21/23 Status: ANUSHA Collier Num: [id number] Spec Type: Surgical Subm Dr: Elizabeth Perea DO Tissues: A Small Intestine - Biopsy/Polyp (SMALL BOWEL) B GASTRIC FOR HP (GASTRIC HP) C Gastric Biopsy (GASTRIC POLYP) Procedures: HE/6, Gross/Micro L4/3, H PYLORI, IHC First AB Patient: Eliza Perera [id number] (Continued) Specimen: [id number] Received: 10/21/23 (Continued) Gross Description (Continued) Signed (signature on file) Rossana Solares MD 10/22/23 1633 Specimen: [id number] Received: 10/21/23 Status: ANUSHA Collier Num: [id number] Spec Type: Surgical Subm Dr: Elizabeth Perea DO Tissues: A Small Intestine - Biopsy/Polyp (SMALL BOWEL) B GASTRIC FOR HP (GASTRIC HP) C Gastric Biopsy (GASTRIC POLYP) Procedures: HE/6, Gross/Micro L4/3, H PYLORI, IHC First AB Patient: Eliza Perera [id number] (Continued) Specimen: [id number] Received: 10/21/23-1429 (Continued) Gross Description (Continued) C. Further labeled gastric polyp is a 0.4 x 0.2 x 0.1 cm menjivar mucosal tissue fragment, entirely submitted in C1. Clinical history: Rule out celiac, rule out H. pylori. CPT Codes 08977j0, 00826 Specimen: [id number] Received: 10/21/23 Status: ANUSHA Collier Num: [id number] Spec Type: Surgical Subm Dr: Elizabeth Perea DO Tissues: A Small Intestine - Biopsy/Polyp (SMALL BOWEL) B GASTRIC FOR HP (GASTRIC HP) C Gastric Biopsy (GASTRIC POLYP) Procedures: HE/6, Gross/Micro L4/3, H PYLORI, IHC First AB Patient: Eliza Perera [id number] (Continued) Signed (signature on file) Rossana Solares MD 10/22/23 [facility]3 Normal [facility] Cytology Cervical or vaginal smear or scraping studyon 05-14-2023 [facility] VC VENOUS REFLUX RT [facility] VC VENOUS REFLUX RT LMT Patient: ELIZA PERERA Exam Date: 10/30/2022 : 1970 Gender:F Ordering : DR JOSH HONG . Admission #: [id number] Family : Order #: [id number] CLICK HERE TO VIEW EXAM RADIOLOGY REPORT [...] Compressibility: Normal. Flow: Moderate deep venous reflux. Bleacher Operator: None. Tech Note: Incompetent varicose vein [...] 10/30/2022 at 12:59 Normal [facility] CBC AUTO DIFFon 07-04-2022 BASO # 0.1 103/ul Normal 0.0-0.1 [facility] Comment on above: Performed By: #### T SH #### [facility] [address] [address] [address] Marlene Blanton Basophils/100 WBC (Bld) 0.6 % Normal 0.2-2.0 [facility] Comment on above: Performed By: #### T SH #### [facility] [address] [address] [address] Marlene Blanton EO # 0.0 103/ul Normal 0.0-0.7 [facility] Comment on above: Performed By: #### T SH #### [facility] [address] [place] [address] Dr. Marlene Blanton Eosinophils/100 WBC (Bld) 0.0 % Critically low 0.9-7.0 [facility] Comment on above: Performed By: #### T SH #### [facility] [address] [place] [address] Dr. Marlene Blanton Erythrocyte distribution width (RBC) [Ratio] 13.3 % Normal 11.0-15.0 [facility] Comment on above: Performed By: #### T SH #### [facility] [address] [place] [address] Dr. Marlene Blanton Hematocrit (Bld) [Volume fraction] 42.3 % Normal 36.0-48.0 [facility] Comment on above: Performed By: #### T SH #### [facility] [address] [place] [address] Dr. Marlene Blanton Hemoglobin (Bld) [Mass/Vol] 13.0 g/dL Normal 12.0-16.0 [facility] Comment on above: Performed By: #### T SH #### [facility] [address] [place] [address] Dr. Marlene Blanton IG # 0.04 10e3/ul Critically high 0.00-0.03 [facility] Comment on above: Performed By: #### T SH #### [facility] [address] [place] [address] Dr. Marlene Blanton IG % 0.4 % Normal 0.0-0.5 [facility] Comment on above: Performed By: #### T SH #### [facility] [address] [place] [address] Dr. Marlene Blanton LYMPH # 2.0 103/ul Normal 1.2-3.8 [facility] Comment on above: Performed By: #### T SH #### [facility] [address] [place] [address] Dr. Marlene Blanton Lymphocytes/100 WBC (Bld) 19.0 % Critically low 20.5-60.0 [facility] Comment on above: Performed By: #### T SH #### [facility] [address] [place] [address] Dr. Marlene Blanton MANUAL DIFF REQ NO Normal [facility] Comment on above: Performed By: #### T SH #### [facility] [address] [place] [address] Dr. Marlene Blanton MCH (RBC) [Entitic mass] 29.6 pg Normal 26.7-34.0 [facility] Comment on above: Performed By: #### T SH #### [facility] [address] [place] [address] Dr. Marlene Blanton MCHC (RBC) [Mass/Vol] 30.7 g/dL Normal 29.9-35.2 [facility] Comment on above: Performed By: #### T SH #### [facility] [address] [place] [address] Dr. Marlene Blanton MCV (RBC) [Entitic vol] 96.4 fL Normal 81.0-99.0 [facility] Comment on above: Performed By: #### T SH #### [facility] [address] [place] [address] Dr. Marlene Blanton MONO # 0.7 103/ul Normal 0.3-0.8 [facility] Comment on above: Performed By: #### T SH #### [facility] [address] [place] [address] Dr. Marlene Blanton Monocytes/100 WBC (Bld) 6.6 % Normal 1.7-12.0 [facility] Comment on above: Performed By: #### T SH #### [facility] [address] [place] [address] Dr. Marlene Blanton NEUT # 7.7 103/ul Critically high 1.4-6.5 [facility] Comment on above: Performed By: #### T SH #### [facility] [address] [place] [address] Dr. Marlene Blanton Neutrophils/100 WBC (Bld) 73.4 % Normal 43.0-75.0 [facility] Comment on above: Performed By: #### T SH #### [facility] [address] [place] [address] Dr. Marlene Blanton Platelet mean volume (Bld) [Entitic vol] 8.9 fL Critically low 9.5-13.5 [facility] Comment on above: Performed By: #### T SH #### [facility] [address] [place] [address] Dr. Marlene Blanton PLT 288 103/ul Normal 150-450 [facility] Comment on above: Performed By: #### T SH #### [facility] [address] [place] [address] Dr. Marlene Blanton RBC 4.39 106/ul Normal 4.20-5.40 [facility] Comment on above: Performed By: #### T SH #### [facility] [address] [place] [address] Dr. Marlene Blanton WBC 10.5 103/ul Normal 4.0-11.0 [facility] Comment on above: Performed By: #### T SH #### [facility] [address] [place] [address] Dr. Marlene Blanton FREE T4on 07-04-2022 Free T4 [Mass/Vol] 0.98 ng/dL Normal 0.76-1.46 [facility] Comment on above: Performed By: #### F T4 #### [facility] [address] [place] [address] Dr. Marlene Blanton PROTIMEon 07-04-2022 INR Coag (PPP) [Relative time] 0.95 {INR} Normal [facility] Comment on above: Performed By: #### P T, PTT #### [facility] [address] [place] [address] Dr. Marlene Blanton INR GUIDELINES SEE BELOW Normal [facility] Comment on above: Result Comment: GLEN RED INR: 2.0 - 3.0 CONDITIONS NOT LISTED BELOW 2.5 - 3.5 FOR PROSTHETIC HEART VALVE REPLACEMENT 2.5 - 3.5 RECURRENT THROMBOSIS Performed By: #### P T, PTT #### [facility] [address] [place] [address] Dr. Marlene Blanton PT Coag (PPP) [Time] 10.1 s Normal 9.0-11.6 [facility] Comment on above: Performed By: #### P T, PTT #### [facility] [address] [place] [address] Dr. Marlene Blanton PTTon 07-04-2022 aPTT Coag (Bld) [Time] 27.2 s Normal 22.3-36.2 [facility] Comment on above: Performed By: #### P T, PTT #### [facility] [address] [place] [address] Dr. Marlene Blanton TSHon 07-04-2022 TSH 1.916 uIU/mL Normal 0.358-3.740 [facility] Comment on above: Performed By: #### T SH #### [facility] [address] [place] [address] Dr. Marlene Blanton BUNon 06-21-2022 Urea nitrogen [Mass/Vol] 8.0 mg/dL Normal 7.0-18.0 [facility] Comment on above: Performed By: #### C BC #### [facility] [address] [place] [address] Dr. Marlene Blanton CBC AUTO DIFFon 06-21-2022 BASO # 0.0 103/ul Normal 0.0-0.1 [facility] Comment on above: Performed By: #### T SH #### [facility] [address] [place] [address] Dr. Marlene Blanton Basophils/100 WBC (Bld) 0.2 % Normal 0.2-2.0 [facility] Comment on above: Performed By: #### T SH #### [facility] [address] [place] [address] Dr. Marlene Blanton EO # 0.0 103/ul Normal 0.0-0.7 [facility] Comment on above: Performed By: #### T SH #### [facility] [address] [place] [address] Dr. Marlene Blanton Eosinophils/100 WBC (Bld) 0.1 % Critically low 0.9-7.0 [facility] Comment on above: Performed By: #### T SH #### [facility] [address] [place] [address] Dr. Marlene Blanton Erythrocyte distribution width (RBC) [Ratio] 13.4 % Normal 11.0-15.0 [facility] Comment on above: Performed By: #### T SH #### [facility] [address] [place] [address] Dr. Marlene Blanton Hematocrit (Bld) [Volume fraction] 33.6 % Critically low 36.0-48.0 [facility] Comment on above: Performed By: #### T SH #### [facility] [address] [place] [address] Dr. Marlene Blanton Hemoglobin (Bld) [Mass/Vol] 10.8 g/dL Critically low 12.0-16.0 [facility] Comment on above: Result Comment: post surgery Performed By: #### T SH #### [facility] [address] [place] [address] Dr. Marlene Blanton IG # 0.06 10e3/ul Critically high 0.00-0.03 [facility] Comment on above: Performed By: #### T SH #### [facility] [address] [place] [address] Dr. Marlene Blanton IG % 0.5 % Normal 0.0-0.5 [facility] Comment on above: Performed By: #### T SH #### [facility] [address] [place] [address] Dr. Marlene Blanton LYMPH # 2.0 103/ul Normal 1.2-3.8 [facility] Comment on above: Performed By: #### T SH #### [facility] [address] [place] [address] Dr. Marlene Blanton Lymphocytes/100 WBC (Bld) 16.1 % Critically low 20.5-60.0 [facility] Comment on above: Performed By: #### T SH #### [facility] [address] [place] [address] Dr. Marlene Blanton MANUAL DIFF REQ NO Normal [facility] Comment on above: Performed By: #### T SH #### [facility] [address] [address] [address] Marlene Blanton MCH (RBC) [Entitic mass] 29.0 pg Normal 26.7-34.0 [facility] Comment on above: Performed By: #### T SH #### [facility] [address] [place] [address] Dr. Marlene Blanton MCHC (RBC) [Mass/Vol] 32.1 g/dL Normal 29.9-35.2 [facility] Comment on above: Performed By: #### T SH #### [facility] [address] [place] [address] Dr. Marlene Blanton MCV (RBC) [Entitic vol] 90.1 fL Normal 81.0-99.0 [facility] Comment on above: Performed By: #### T SH #### [facility] [address] [place] [address] Dr. Marlene Blanton MONO # 0.7 103/ul Normal 0.3-0.8 [facility] Comment on above: Performed By: #### T SH #### [facility] [address] [place] [address] Dr. Marlene Blanton Monocytes/100 WBC (Bld) 5.3 % Normal 1.7-12.0 [facility] Comment on above: Performed By: #### T SH #### [facility] [address] [place] [address] Dr. Marlene Blanton NEUT # 9.7 103/ul Critically high 1.4-6.5 [facility] Comment on above: Performed By: #### T SH #### [facility] [address] [place] [address] Dr. Marlene Blanton Neutrophils/100 WBC (Bld) 77.8 % Critically high 43.0-75.0 [facility] Comment on above: Performed By: #### T SH #### [facility] [address] [place] [address] Dr. Marlene Blanton Platelet mean volume (Bld) [Entitic vol] 8.5 fL Critically low 9.5-13.5 [facility] Comment on above: Performed By: #### T SH #### [facility] [address] [place] [address] Dr. Marlene Blanton PLT 248 103/ul Normal 150-450 [facility] Comment on above: Performed By: #### T SH #### [facility] [address] [place] [address] Dr. Marlene Blanton RBC 3.73 106/ul Critically low 4.20-5.40 [facility] Comment on above: Performed By: #### T SH #### [facility] [address] [place] [address] Dr. Marlene Blanton WBC 12.4 103/ul Critically high 4.0-11.0 [facility] Comment on above: Performed By: #### T SH #### [facility] [address] [place] [address] Dr. Marlene Blanton CREATININEon 06-21-2022 Creatinine [Mass/Vol] 0.87 mg/dL Normal 0.55-1.02 [facility] Comment on above: Performed By: #### C BC #### [facility] [address] [place] [address] Dr. Marlene Blanton EGFR-AF LIBYAN >60 Normal >=60 [facility] Comment on above: Performed By: #### C BC #### [facility] [address] [place] [address] Dr. Marlene Blanton EGFR-NON AF LIBYAN >60 Normal >=60 [facility] Comment on above: Performed By: #### C BC #### [facility] [address] [place] [address] Dr. Marlene Blanton CBC AUTO DIFFon 06-19-2022 BASO # 0.1 103/ul Normal 0.0-0.1 [facility] Comment on above: Performed By: #### C BC #### [facility] [address] [place] [address] Dr. Marlene Blanton Basophils/100 WBC (Bld) 0.5 % Normal 0.2-2.0 [facility] Comment on above: Performed By: #### C BC #### [facility] [address] [place] [address] Dr. Marlene Blanton EO # 0.0 103/ul Normal 0.0-0.7 [facility] Comment on above: Performed By: #### C BC #### [facility] [address] [place] [address] Dr. Marlene Blanton Eosinophils/100 WBC (Bld) 0.1 % Critically low 0.9-7.0 [facility] Comment on above: Performed By: #### C BC #### [facility] [address] [place] [address] Dr. Marlene Blanton Erythrocyte distribution width (RBC) [Ratio] 13.4 % Normal 11.0-15.0 [facility] Comment on above: Performed By: #### C BC #### [facility] [address] [place] [address] Dr. Marlene Blanton Hematocrit (Bld) [Volume fraction] 39.8 % Normal 36.0-48.0 [facility] Comment on above: Performed By: #### C BC #### [facility] [address] [place] [address] Dr. Marlene Blanton Hemoglobin (Bld) [Mass/Vol] 13.2 g/dL Normal 12.0-16.0 [facility] Comment on above: Performed By: #### C BC #### [facility] [address] [place] [address] Dr. Marlene Blanton IG # 0.05 10e3/ul Critically high 0.00-0.03 [facility] Comment on above: Performed By: #### C BC #### [facility] [address] [place] [address] Dr. Marlene Blanton IG % 0.5 % Normal 0.0-0.5 [facility] Comment on above: Performed By: #### C BC #### [facility] [address] [place] [address] Dr. Marlene Blanton LYMPH # 2.4 103/ul Normal 1.2-3.8 [facility] Comment on above: Performed By: #### C BC #### [facility] [address] [place] [address] Dr. Marlene Blanton Lymphocytes/100 WBC (Bld) 24.7 % Normal 20.5-60.0 [facility] Comment on above: Performed By: #### C BC #### [facility] [address] [place] [address] Dr. Marlene Blanton MANUAL DIFF REQ NO Normal [facility] Comment on above: Performed By: #### C BC #### [facility] [address] [place] [address] Dr. Marlene Blanton MCH (RBC) [Entitic mass] 29.7 pg Normal 26.7-34.0 [facility] Comment on above: Performed By: #### C BC #### [facility] [address] [place] [address] Dr. Marlene Blanton MCHC (RBC) [Mass/Vol] 33.2 g/dL Normal 29.9-35.2 [facility] Comment on above: Performed By: #### C BC #### [facility] [address] [place] [address] Dr. Marlene Blanton MCV (RBC) [Entitic vol] 89.4 fL Normal 81.0-99.0 [facility] Comment on above: Performed By: #### C BC #### [facility] [address] [place] [address] Dr. Marlene Blanton MONO # 0.8 103/ul Normal 0.3-0.8 [facility] Comment on above: Performed By: #### C BC #### [facility] [address] [place] [address] Dr. Marlene Blanton Monocytes/100 WBC (Bld) 7.9 % Normal 1.7-12.0 [facility] Comment on above: Performed By: #### C BC #### [facility] [address] [place] [address] Dr. Marlene Blanton NEUT # 6.3 103/ul Normal 1.4-6.5 [facility] Comment on above: Performed By: #### C BC #### [facility] [address] [place] [address] Dr. Marlene Blanton Neutrophils/100 WBC (Bld) 66.3 % Normal 43.0-75.0 [facility] Comment on above: Performed By: #### C BC #### [facility] [address] [place] [address] Dr. Marlene Blanton Platelet mean volume (Bld) [Entitic vol] 8.3 fL Critically low 9.5-13.5 [facility] Comment on above: Performed By: #### C BC #### [facility] [address] [place] [address] Dr. Marlene Blanton PLT 300 103/ul Normal 150-450 [facility] Comment on above: Performed By: #### C BC #### [facility] [address] [place] [address] Dr. Marlene Blanton RBC 4.45 106/ul Normal 4.20-5.40 [facility] Comment on above: Performed By: #### C BC #### [facility] [address] [place] [address] Dr. Marlene Blanton WBC 9.6 103/ul Normal 4.0-11.0 [facility] Comment on above: Performed By: #### C BC #### [facility] [address] [place] [address] Dr. Marlene Blanton PREG QUANT HCGon 06-19-2022 HCG QUANT 1 mIU/mL Normal [facility] Comment on above: Performed By: #### P REGQNT #### [facility] [address] [place] [address] Dr. Marlene Blanton HCG RANGE SEE BELOW Normal [facility] Comment on above: Result Comment: 5-50 0.2-1 WEEK 50-500 1-2 WEEKS 100-5,000 2-3 WEEKS 500-10,000 3-4 WEEKS 1,000-50,000 4-5 WEEKS 10,000-100,000 5-6 WEEKS 15,000-200,000 6-8 WEEKS 10,000-100,000 2-3 MONTHS Performed By: #### P REGQNT #### [facility] [address] [place] [address] Dr. Marlene Blanton TYPE AND SCREENon 06-19-2022 TYPE AND SCREEN Negative Normal [facility] Comment on above: Performed By: #### C BC #### [facility] [address] [place], [place] [address] Dr. Marlene Blanton ASYMPTOMATIC COVID-19 ANTIGE Non 05-28-2022 EUA Statement SEE BELOW Normal [facility] Comment on above: Result Comment: This [...] By: #### C BC #### [facility] [address] [place], [place] [address] Dr. Marlene Blanton SARS-CoV-2 (COVID-19) RNA AUSTIN+probe Ql (Unsp spec) Positive Critically abnormal NEGATIVE [facility] Comment on above: Result Comment: SARS -CoV-2 antigen present; does not rule out coinfection with other pathogens. Performed By: #### C BC #### [facility] [address] [address] [address] Marlene Blanton Cov[facility]-19 PCR ([facility]on 04-24 SARS-CoV-2 (COVID-19) RNA [place]USTIN+probe Ql (Unsp spec) Detected Critically abnormal NOT DETECTED [facility] Comment on above: Result Comment: This test is not yet approved or cleared by the [place] FDA. When there are no FDA-approved or cleared tests available, and other criteria are met, FDA can make tests available under an emergency access mechanism called an Emergency Use Authorization (EUA). The EUA for this test is supported by the [place] of Health and Human Service's declaration that [...] used). Performed By: #### C VDTB #### [facility] [address] [place] [address] Dr. Marlene Blanton PAP ACOG PANEL 2: 30 to 65on 05-15-2022 . . Normal [facility] Comment on above: Result Comment: Perf ormed at: WB Performed By: #### [id number] #### [facility] [address] [place] [address] Dr. Marlene Blanton Age Gdln ACOG Testing 30-65 [facility] Comment on above: Performed By: #### [id number] #### [facility] [address] [place] [address] Dr. Marlene Blanton DIAGNOSIS: Comment [facility] Comment on above: Result Comment: NEGA TIVE FOR INTRAEPITHELIAL LESION OR MALIGNANCY. FUNGAL ORGANISMS MORPHOLOGICALLY CONSISTENT WITH BAILEY SPECIES ARE PRESENT. Performed at: WB Performed By: #### [id number] #### [facility] [address] [place] [address] Dr. Marlene Blanton HPV Aptima Negative Normal Negative [facility] Comment on above: Result Comment: This nucleic acid amplification test detects fourteen high-risk HPV types (16,18,31,33,35,39,45,51,52,56,58,59,66,68) without differentiation. Performed at: =G Performed By: #### [id number] #### [facility] [address] [place] [address] Dr. Marlene Blanton HPV Genotype Reflex Comment [facility] Comment on above: Result Comment: Crit eria not met, HPV Genotype not performed. Performed at: WB Performed By: #### [id number] #### [facility] [address] [place] [address] Dr. Marlene Blanton Methodology: Comment [facility] Comment on above: Result Comment: This liquid based ThinPrep(R) pap test was screened with the use of an image guided system. Performed at: WB Performed By: #### [id number] #### [facility] [address] [place] [address] Dr. Marlene Blanton Note: Comment Normal [facility] Comment on above: Result Comment: The Pap smear is a screening test designed to aid in the detection of premalignant and malignant conditions of the uterine cervix. It is not a diagnostic procedure and should not be used as the sole means of detecting cervical cancer. Both false-positive and false-negative reports do occur. . Performed at: WB Performed By: #### [id number] #### [facility] [address] [place] [address] Dr. Marlene Blanton Performed by: Comment Normal [facility] Comment on above: Result Comment: [employer] (ASCP) Performed at: WB Performed By: #### [id number] #### [facility] [address] [place] [address] Dr. Marlene Blanton Specimen adequacy: Comment Normal [facility] Comment on above: Result Comment: Sati sfactory for evaluation. No endocervical component is identified. Performed at: WB Performed By: #### [id number] #### [facility] [address] [place] [address] Dr. Marlene Blanton MG MAMM SCREEN 3D JENNIFER CADon 05-14-2022 MG MAMM SCREEN 3D JENNIFER CAD Patient: ELIZA PERERA Exam Date: 05/14/2022 : 1970 Gender:F Ordering : DR JAVID WATSON . Admission #: [id number] Family : DR JOSH HONG . Order #: [id number] CLICK HERE TO VIEW EXAM RADIOLOGY REPORT [...] at age 19. LOCATION: [facility] BREAST COMPOSITION: Heterogeneously dense,which may obscure small [...] 05/14/2022 at 14:48 Normal [facility] US PELVIS AND TRANSVAGon US PELVIS AND [...] Date: 2022-05-09 13:04 Normal [facility] CBC AUTO DIFFon 05-08-2022 BASO # 0.1 103/ul Normal 0.0-0.1 [facility] Comment on above: Performed By: #### T SH #### [facility] [address] [address] [address] Marlene Blanton Basophils/100 WBC (Bld) 0.7 % Normal 0.2-2.0 [facility] Comment on above: Performed By: #### T SH #### [facility] [address] [address] [address] Marlene Blanton EO # 0.0 103/ul Normal 0.0-0.7 [facility] Comment on above: Performed By: #### T SH #### [facility] [address] [place] [address] Dr. Marlene Blanton Eosinophils/100 WBC (Bld) 0.0 % Critically low 0.9-7.0 [facility] Comment on above: Performed By: #### T SH #### [facility] [address] [place] [address] Dr. Marlene Blanton Erythrocyte distribution width (RBC) [Ratio] 13.4 % Normal 11.0-15.0 [facility] Comment on above: Performed By: #### T SH #### [facility] [address] [place] [address] Dr. Marlene Blanton Hematocrit (Bld) [Volume fraction] 42.1 % Normal 36.0-48.0 [facility] Comment on above: Performed By: #### T SH #### [facility] [address] [place] [address] Dr. Marlene Blanton Hemoglobin (Bld) [Mass/Vol] 13.8 g/dL Normal 12.0-16.0 [facility] Comment on above: Performed By: #### T SH #### [facility] [address] [place] [address] Dr. Marlene Blanton IG # 0.04 10e3/ul Critically high 0.00-0.03 [facility] Comment on above: Performed By: #### T SH #### [facility] [address] [place] [address] Dr. Marlene Blanton IG % 0.4 % Normal 0.0-0.5 [facility] Comment on above: Performed By: #### T SH #### [facility] [address] [place] [address] Dr. Marlene Blanton LYMPH # 2.1 103/ul Normal 1.2-3.8 [facility] Comment on above: Performed By: #### T SH #### [facility] [address] [place] [address] Dr. Marlene Blanton Lymphocytes/100 WBC (Bld) 23.3 % Normal 20.5-60.0 [facility] Comment on above: Performed By: #### T SH #### [facility] [address] [place] [address] Dr. Marlene Blanton MANUAL DIFF REQ NO Normal [facility] Comment on above: Performed By: #### T SH #### [facility] [address] [place] [address] Dr. Marlene Blanton MCH (RBC) [Entitic mass] 29.3 pg Normal 26.7-34.0 [facility] Comment on above: Performed By: #### T SH #### [facility] [address] [place] [address] Dr. Marlene Blanton MCHC (RBC) [Mass/Vol] 32.8 g/dL Normal 29.9-35.2 [facility] Comment on above: Performed By: #### T SH #### [facility] [address] [place] [address] Dr. Marlene Blanton MCV (RBC) [Entitic vol] 89.4 fL Normal 81.0-99.0 [facility] Comment on above: Performed By: #### T SH #### [facility] [address] [place] [address] Dr. Marlene Blanton MONO # 0.7 103/ul Normal 0.3-0.8 [facility] Comment on above: Performed By: #### T SH #### [facility] [address] [place] [address] Dr. Marlene Blanton Monocytes/100 WBC (Bld) 7.3 % Normal 1.7-12.0 [facility] Comment on above: Performed By: #### T SH #### [facility] [address] [place] [address] Dr. Marlene Blanton NEUT # 6.1 103/ul Normal 1.4-6.5 [facility] Comment on above: Performed By: #### T SH #### [facility] [address] [place] [address] Dr. Marlene Blanton Neutrophils/100 WBC (Bld) 68.3 % Normal 43.0-75.0 [facility] Comment on above: Performed By: #### T SH #### [facility] [address] [place] [address] Dr. Marlene Blanton Platelet mean volume (Bld) [Entitic vol] 8.8 fL Critically low 9.5-13.5 [facility] Comment on above: Performed By: #### T SH #### [facility] [address] [place] [address] Dr. Marlene Blanton PLT 310 103/ul Normal 150-450 [facility] Comment on above: Performed By: #### T SH #### [facility] [address] [place] [address] Dr. Marlene Blanton RBC 4.71 106/ul Normal 4.20-5.40 [facility] Comment on above: Performed By: #### T SH #### [facility] [address] [place] [address] Dr. Marlene Blanton WBC 9.0 103/ul Normal 4.0-11.0 [facility] Comment on above: Performed By: #### T SH #### [facility] [address] [place] [address] Dr. Marlene Blanton FREE T4on 05-08-2022 Free T4 [Mass/Vol] 1.09 ng/dL Normal 0.76-1.46 [facility] Comment on above: Performed By: #### T SH #### [facility] [address] [place] [address] Dr. Marlene Blanton PREG QUANT HCGon 05-08-2022 HCG QUANT 1 mIU/mL Normal [facility] Comment on above: Performed By: #### T SH, PREGQNT #### [facility] [address] [place] [address] Dr. Marlene Blanton HCG RANGE SEE BELOW Normal [facility] Comment on above: Result Comment: 5-50 0.2-1 WEEK 50-500 1-2 WEEKS 100-5,000 2-3 WEEKS 500-10,000 3-4 WEEKS 1,000-50,000 4-5 WEEKS 10,000-100,000 5-6 WEEKS 15,000-200,000 6-8 WEEKS 10,000-100,000 2-3 MONTHS Performed By: #### T SH, PREGQNT #### [facility] [address] [place] [address] Dr. Marlene Blanton PROTIMEon 05-08-2022 INR Coag (PPP) [Relative time] 0.95 {INR} Normal [facility] Comment on above: Performed By: #### C BC #### [facility] [address] [place] [address] Dr. Marlene Blanton INR GUIDELINES SEE BELOW Normal [facility] Comment on above: Result Comment: GLEN RED INR: 2.0 - 3.0 CONDITIONS NOT LISTED BELOW 2.5 - 3.5 FOR PROSTHETIC HEART VALVE REPLACEMENT 2.5 - 3.5 RECURRENT THROMBOSIS Performed By: #### C BC #### [facility] [address] [place] [address] Dr. Marlene Blanton PT Coag (PPP) [Time] 10.3 s Normal 9.0-11.6 [facility] Comment on above: Performed By: #### C BC #### [facility] [address] [place] [address] Dr. Marlene Blanton PTTon 05-08-2022 aPTT Coag (Bld) [Time] 26.3 s Normal 22.3-36.2 [facility] Comment on above: Performed By: #### C BC #### [facility] [address] [place] [address] Dr. Marlene Blanton TSHon 05-08-2022 TSH 4.001 uIU/mL Critically high 0.358-3.740 [facility] Comment on above: Performed By: #### T SH, PREGQNT #### [facility] [address] [place] [address] Dr. Marlene Blanton Reminderson 06-01-2020 Reminders - From: Jesenia Price LPN To: GSN - Clinical; Sent: 06/01/2020 08:20:44 EST Show up: 04/24/2030 09:00:00 EDT Subject: colonoscopy recall Due Date/Time: 05/24/2030 09:00:00 EST Reminder/Recall Patient is due for screening colonoscopy 05/24/2030. Normal [facility] Ambulatory Clinical Summaryo n 05-31-2020 Ambulatory Clinical Summary {[id number]}CD:[id number] Normal [facility] General Surgery Office/Clini c Noteon 05-31-2020 [...] MD Only if needed [address] [place] [address]- Additional Instructions: Problem List/Past Medical History Ongoing [...] malignant neoplasm of female breast: Mother. Normal [facility] Comment on above: Result Comment: Elec tronically Signed By: GABRIEL LAUREN, Corby Salguero\.br\Date and Time Signed: 05/31/20 16:31 EST Pathology Noteon 05-29-2020 Pathology Note [id number] D:127 Normal [facility] Outside Colonoscopyon 2019 Outside Colonoscopy [id number] D:127 Normal [facility] Lab Reportson 05-25-2020 Lab Reports [id number] D:127 [facility] Provider Letter FTon 05-12 Provider Letter [facility] Josh Hong, [address] [place] [address] Re: ELIZA PERERA Date of : 1970 Thank you for your referral of Eliza Perera who was seen on consultation on May 09, 2020, for rectal bleeding, abdominal pain with bowel movements. A colonoscopy is ordered for further evaluation. I will be happy to follow Eliza. Sincerely, Corby Buitrago MD General Surgery Normal [facility] Clinical Summaryo n 05-09-2020 Ambulatory Clinical Summary {[id number]}CD:[id number] Normal [facility] General Surgery Office/Clini c Noteon 05-09-2020 [...] available Patient Education Exercise to Stay Healthy, Hidq-xb-Aira Problem List/Past Medical History Ongoing Abdominal pain, [...] malignant neoplasm of female breast: Mother. Normal [facility] Comment on above: Result Comment: Elec [...] Document Reviewed: 07/12/2011 ExitCare? Patient Information ?2013 [employer]. Normal [facility] Physician Referralon 020 Physician Referral [id number] D:127 Normal [facility] Vital Signs Date Time Vital Sign Value Performing Clinician Ismael kunz 05-17-2024 08:51-0500 Body mass index (BMI) [Ratio] 27 kg/m2 May HURD Work Phone: [facility] 05-17-2024 08:51-0500 Body weight 78.2 kg May HURD Work Phone: [facility] 05-17-2024 08:51-0500 Diastolic blood pressure 60 mm[Hg] May HURD Work Phone: [facility] 05-17-2024 08:51-0500 Systolic blood pressure 110 mm[Hg] May HURD Work Phone: [facility] 10-21-2023 14:00-0400 Diastolic blood pressure 72 mm[Hg] MD Josh Hong Work Phone: [facility] 10-21-2023 14:00-0400 Heart rate 77 /min MD Josh Hong Work Phone: [facility] 10-21-2023 14:00-0400 Respiratory rate 16 /min MD Josh Hong Work Phone: [facility] 10-21-2023 14:00-0400 SaO2% (BldA) [Mass fraction] 97 % MD Josh Hong Work Phone: [facility] 10-21-2023 14:00-0400 Systolic blood pressure 121 mm[Hg] MD Josh Hong Work Phone: [facility] 10-21-2023 10:52-0400 Body height 170.18 cm MD Jsoh Hong Work Phone: [facility] 10-21-2023 10:52-0400 Body weight 79.37 kg MD Josh Hong Work Phone: [facility] 10-03-2023 09:50-0400 Body height 170.18 cm MD Josh Hong Work Phone: [facility] 10-03-2023 09:50-0400 Body mass index (BMI) [Ratio] 28 kg/m2 MD Josh Hong Work Phone: [facility] 10-03-2023 09:50-0400 Body weight 81.19 kg MD Josh Hong Work Phone: [facility] 10-03-2023 09:50-0400 Diastolic blood pressure 79 mm[Hg] MD Josh Hong Work Phone: [facility] 10-03-2023 09:50-0400 Heart rate 74 /min MD Josh Hong Work Phone: [facility] 10-03-2023 09:50-0400 Systolic blood pressure 128 mm[Hg] MD Josh Hong Work Phone: [facility] Encounters Encounter Date Encounter Type Care [...] 12-26-2023 ambulatory MD Josh Hong Work Phone: [facility] Work Phone: Start: 12-26-2023 End: 12-26-2023 Departed Referred MD Josh Hong Work Phone: [facility] Start: 12-01-2023 End: 12-01-2023 ambulatory JAVID DARCIE Not Available Start: 11-06-2023 End: 11-06-2023 ambulatory JAVID DARCIE Not Available Start: 10-21-2023 Non-patient / Non-visit MD Bennie Hong Work Phone: [facility] Work Phone: Start: 10-21-2023 End: 10-21-2023 Admission to same day surgery center MD Josh Hong Work Phone: [facility] Work Phone: Start: 10-21-2023 End: 10-21-2023 ambulatory MD Josh Hong Work Phone: [facility] Work Phone: Start: 10-03-2023 End: 10-03-2023 Patient encounter procedure MD Josh Hong Work Phone: [facility] Work Phone: Start: 10-30-2022 End: 10-31-[address] JOSH HONG . Facility:[facility] Start: 07-04-2022 End: 07-05-[address] JAVID WATSON . Facility:[facility] Start: 06-21-2022 Encounter for preprocedural laboratory examination DR JAVID WATSON . [facility] Start: 06-20-2022 End: 06-21-[address] JAVID WATSON . Facility:[facility] Start: 06-19-2022 Encounter for preprocedural cardiovascular examination DR JAVID WATSON . [facility] Start: 06-19-2022 End: 06-20-[address] JAVID [...] Screening for malign ant neoplasm of colon [facility] Start: 05-14-2028 Screening for malign ant neoplasm of cervix [facility] Start: 05-23-2025 End: 05-23-2025 Patient encounter procedure 05/23/2025 9:00 AM EST Office Visit [facility] [address] [place] [id number] May Jorge PA [address] [place] [address] [facility] Start: 05-21-2024 Screening for malign ant neoplasm of breast Mammogram [facility] Start: 05-17-2024 End: 05-17-2025 CBC W Auto Differential panel - Blood CBC and differential Lab Routine Other fatigue Expected: 05/17/2024 (Approximate), Expires: 05/17/2025 [facility] Comment on above: Expected: 05/17/2024 (Approximate), Expires: 05/17/2025 Start: 05-17-2024 End: 05-17-2025 DXA Skeletal system Views for bone density DEXA bone density Imaging Routine Postmenopausal state Expected: 05/17/2024 (Approximate), Expires: 05/17/2025 [facility] Comment on above: Expected: 05/17/2024 (Approximate), Expires: 05/17/2025 Start: 05-17-2024 End: 07-17-2025 MG Breast - bilateral Screening Bilateral screening mammogram Imaging Routine Breast cancer screening by mammogram Expected: 05/17/2024, Expires: 07/17/2025 [facility] Work Phone: Comment on above: Expected: 05/17/2024 , Expires: 07/17/2025 Start: 05-17-2024 End: 05-17-2025 US for US PELVIS-TRANSVAG IF INDICATED Imaging Routine Left ovarian cyst Expected: 05/17/2024 (Approximate), Expires: 05/17/2025 [facility] Comment on above: Expected: 05/17/2024 (Approximate), Expires: 05/17/2025 Start: 02-22-2024 Influenza vaccination Influenza Vacc ine (#1) [facility] Start: 10-21-2023 [facility] Start: 1970 Screening for malign ant neoplasm of colon [facility] Patient Education Gastritis Stomach polyp s [facility] Work Phone: THIN PREP TIS PAP AN D HR HPV DNA THIN PREP TIS PAP AND HR HPV DNA Pathology and Cytology Routine Well woman exam with routine gynecological exam Ordered: 05/17/2024 [facility] Comment on above: Ordered: 05/17/2024 Thyrotropin [Units/volume] in Serum or Plasma TSH Lab Routine Other fatigue Ordered: 05/17/2024 [facility] Comment on above: Ordered: 05/17/2024 Immunizations Immunization Date Immunization Notes Care Provider Fa [facility] 04-14-2024 influenza virus vacc ine, unspecified formulation May HURD Work Phone: [facility] Payers Date Payer Category Payer Self-pay 2023 Private Health Insurance [employer] [id number] 1970 Unknown [id number] 2.16.840.1.675047.3.579.2. 593 1970 Unknown [id number] 2.16.840.1.623092.3.579.2. 593 1970 Unknown [id number] 2.16.840.1.363267.3.579.2. 593 1970 Unknown [id number] 2.16.840.1.847820.3.579.2. 593 1970 Unknown [id number] 2.16.840.1.965263.3.579.2. 593 1970 Unknown [id number] 2.16.840.1.949473.3.579.2. 593 1970 Unknown [id number] 2.16.840.1.339767.3.579.2. 593 1970 Unknown [id number] 2.16.840.1.184727.3.579.2. 593 1970 Unknown [id number] 2.16.840.1.629207.3.579.2. 593 1970 Unknown [id number] 2.16.840.1.658149.3.579.2. 593 1970 Unknown [id number] 2.16.840.1.297238.3.579.2. 593 1970 Unknown [id number] 2.16.840.1.600515.3.579.2. 1259 1970 Unknown [id number] 2.16.840.1.744989.3.579.2. 1259 1970 Unknown [id number] 2.16.840.1.733875.3.579.2. 1259 1970 Unknown [id number] 2.16.840.1.017642.3.579.2. 1259 1959 Unknown [id number] Unknown [id number] 2.16.840.1.495277.3.579.2. 531 Unknown [id number] 2.16.840.1.204313.3.579.2. 531 Social History Date Type Detail Facility Start: 05-12-2023 End: 10-21-2023 Tobacco smoking status NHIS Never smoked tobacco (finding) [facility] Start: 1970 Sex Assigned At Female [facility] Start: 01-08-2024 End: 05-17-2024 Alcoholic beverage intake Ex-drinker (finding) [facility] Start: 05-12-2023 End: 11-06-2023 History of Social function [facility] Start: 05-12-2023 End: 11-06-2023 Alcohol [...] nursing note reviewed. Exam conducted with a extension agent present. Vitals: Estimated body mass index is [...] of: VANNESSA Sheffield documented in this encounter [facility] Procedure note 10-21-2023 Note Date & Type Note Facility 10-21-2023 Procedure note [facility] Procedure note 10-21-2023 Note Date & Type Note Facility 10-21-2023 Procedure note [facility] Clinical Note 06-20-2022 Note Date & Type Note Facility 06-20-2022 Note OPERATIVE NOTE OPERATION DATE: 06/20/2022 PROCEDURE: vNOTES hysterectomy with cystoscopy and bilateral salpingectomy. PREOPERATIVE DIAGNOSIS: Pelvic pressure, menorrhagia, dysmenorrhea, dyspareunia. POSTOPERATIVE DIAGNOSIS: Pelvic pressure, menorrhagia, dysmenorrhea, dyspareunia. ANESTHESIA: General. SURGEON: Javid Watson M.D. BACK HOE OPERATOR: PIYUSH Howell URINE OUTPUT: Yellow and clear. [...] needle counts correct x2. [facility] Evaluation note Note Date & Type Note Facility Evaluation note Diagnosis Onset Date Abdominal pain acute Bloating acute GERD (gastroesophageal reflux disease) acute Mucus in stool acute [facility] Work Phone: Evaluation note Note [...] note Note Date/Time October 21, 2023 12:42pm [facility] [address] [place] [address] Gastroenterology H&P Signed Patient: Eliza Perera MR#: [id number] : 1970 Acct:[id number] Age/Sex: 52 / F Adm Date: 4 Loc: Room: Type: [facility] Attending Dr: Elizabeth Perea DO [...] signed by Elizabeth Perea DO> 10/21/23 1242 [facility] Work Phone: Summary Purpose Family [...] section and content) DATE CREATED AUTHOR 06/15/2020 [facility] DATE CREATED AUTHOR AUTHOR'S ORGANIZ ATION 11/03/[address] [facility] DATE CREATED AUTHOR AUTHOR'S ORGANIZ ATION 01/05/2024 [facility] DATE CREATED AUTHOR AUTHOR'S ORGANIZ ATION 05/19/2024 [facility] dical Specialists EPIC Care Teams (unrecognized [...] December 26, 2023 End: December 26, 2023 Bioinformatics Analyst Relationship Specialty Start Date End Date Josh Hong MD [address] [place] [address] PCP - General Family Medicine 05/14/23 Bioinformatics Analyst Relationship Specialty Start Date End Date Josh Hong MD [address] [place] [address] PCP - General Family Medicine 05/14/23 Bioinformatics Analyst Relationship Specialty Start Date End Date Josh Hong MD [address] [place] [address] PCP - General Family Medicine 05/14/23 Reason [...] BE BASED ON THE PRIMARY CLINICAL RECORDS. [employer] [facility]. provides no warranty or guarantee of the accuracy or completeness of information in this document.
== END 2024-06-21 08:29 | disposition home or self-care (01) ==
LOC: MRI 08:28
PROVIDERS: PCP Family Medicine; Visit Provider Family Medicine
DX: R93.0 Abnormal findings on diagnostic imaging of skull and head, not elsewhere classified (principal); J01.11 Acute recurrent frontal sinusitis; G43.909 Migraine, unspecified, not intractable, without status migrainosus
CPT/HCPCS: 70553; A9575

== ENCOUNTER 2025-05-23 14:53 | Outpatient (REF) | payer OTHER, SELFPAY ==
--- OUTSIDE RECORDS SUMMARY | 2025-05-23 09:00 | XMS_ITS | Encounter Summary ---
Author Organization [facility] Address [address] [place] [address] Care Team Providers Care Alumina Plant Supervisor Name Role Phone Joon Hong MD Primary Care Provider [phone] Reason for Visit * ReasonCommentsWell Women Visit Encounter Details DateTypeDepartmentCare Team (Latest Contact Info)Etjugpmgtrn92/01/2025 9:00 AM ESTOffice Visit EVARISTO VALERO [address] [address] May Calix PA [address] [place] [address] Well woman exam with routine gynecological exam; Breast cancer screening by mammogram Social History Tobacco UseTypesPacks/DayYears UsedDateSmoking Tobacco: NeverAlcohol UseStandard Drinks/WeekCommentsNot Currently0 (1 standard drink = 0.6 oz pure alcohol) Caffeine intake: noneAUDIT-CAnswerDate RecordedQ1: How often do you have a drink containing alcohol?Monthly or less05/12/2023Q2: How many drinks containing alcohol do you have on a typical day when you are drinking?1 or Q3: How often do you have six or more drinks on one occasion?Never05/12/2023 CommentsNoSex and Gender InformationValueDate RecordedSex Assigned at BirthNot on fileLegal UqjIdkdiw73/15/2023 6:43 PM EDTGender IdentityNot on fileSexual OrientationNot on filedocumented as of this encounter Last Filed Vital Signs Vital SignReadingTime TakenCommentsBlood Nczrhklh500/7212 9:30 AM EST Pulse--Temperature--Respiratory Rate--Oxygen Saturation--Inhaled Oxygen Concentration--Ppomyb37.1 kg (172 lb 1.9 oz)05/23/2025 9:30 AM ESTHeight--Body Mass Index26.9607 3:57 PM EDTdocumented in this encounter Progress Notes * VANNESSA Sheffield - 05/23/2025 9:00 AM EST Reason for Appointment: Patient ID: Eliza Perera is a 54 y.o. female who presents for Well Women Visit Patient presents today for Annual Exam. MEDICATIONS Current Outpatient Medications Medication Instructions ??? BLACK ELDERBERRY PO 1 tablet, Daily ??? cholecalciferol (Vitamin D-3) 50 MCG (1999 UT) capsule Vitamin D (Cholecalciferol) ??? desvenlafaxine (PRISTIQ) 100 mg, Daily ??? ferrous sulfate 325 (65 Fe) MG tablet Every 24 hours ??? gabapentin (NEURONTIN) 100 mg, 2 times daily ??? Nurtec 75 MG tablet dispersible take 1 tablet by mouth AT ONSET OF MIGRAINE ??? pantoprazole (PROTONIX) 40 mg, 2 times daily ALLERGIES Allergies Allergen Reactions ??? Diflucan [Fluconazole] ??? Levaquin [Levofloxacin] PROBLEMS Active Ambulatory Problems Diagnosis Date Noted ??? No Active Ambulatory Problems Resolved Ambulatory Problems Diagnosis Date Noted ??? No Resolved Ambulatory Problems Past Medical History: Diagnosis Date ??? Abnormal diffusion capacity determined by pulmonary function test ??? Anemia, iron deficiency ??? BMI 26.0-26.9,adult ??? Breast cancer screening by mammogram ??? Cervical polyp ??? Chest pain ??? Displaced fracture of proximal phalanx of left thumb, initial encounter for closed fracture ??? Diverticulosis ??? DVT (deep venous thrombosis) (HCC) ??? Excessive hair growth ??? Family history of breast cancer in first degree relative ??? History of COVID-19 ??? Hot flashes ??? IBS (irritable bowel syndrome) ??? Joint pain ??? Meniere's disease ??? Menopausal symptoms ??? Menopausal symptoms ??? Menorrhagia ??? Migraines ??? Neuromuscular weakness (HCC) ??? Otalgia of right ear ??? PCOS (polycystic ovarian syndrome) ??? Post menopausal syndrome ??? Recurrent vertigo ??? Shortness of breath ??? Superficial phlebitis and thrombophlebitis of right lower extremity ??? Tinnitus ??? Uterine prolapse ??? Vitiligo HISTORY PAST MEDICAL HISTORY SOCIAL HISTORY Past Medical History: Diagnosis Date ??? Abnormal diffusion capacity determined by pulmonary function test ??? Anemia, iron deficiency ??? BMI 26.0-26.9,adult ??? Breast cancer screening by mammogram ??? Cervical polyp ??? Chest pain ??? Displaced fracture of proximal phalanx of left thumb, initial encounter for closed fracture ??? Diverticulosis ??? DVT (deep venous thrombosis) (HCC) ??? Excessive hair growth ??? Family history of breast cancer in first degree relative ??? History of COVID-19 ??? Hot flashes ??? IBS (irritable bowel syndrome) ??? Joint pain ??? Meniere's disease ??? Menopausal symptoms ??? Menopausal symptoms ??? Menorrhagia ??? Migraines ??? Neuromuscular weakness (HCC) ??? Otalgia of right ear ??? PCOS (polycystic ovarian syndrome) ??? Post menopausal syndrome ??? Recurrent vertigo ??? Shortness of breath ??? Superficial phlebitis and thrombophlebitis of right lower extremity ??? Tinnitus ??? Uterine prolapse ??? Vitiligo Social History Tobacco Use ??? Smoking status: Never ??? Smokeless tobacco: Not on file Substance Use Topics ??? Alcohol use: Not Currently Comment: Caffeine intake: none ??? Drug use: Never FAMILY HISTORY Family History Problem Relation Name Age of Onset ??? Hypertension Mother ??? Heart disease Mother ??? COPD Mother ??? Cancer Mother breast ??? Deep vein thrombosis Mother ??? Osteoporosis Mother ??? Heart disease Father ??? Vitiligo Father ??? Melanoma Sister ??? Thyroid disease Sister ??? Cancer Sister ??? Vitiligo Brother ??? Melanoma Sibling ??? Cancer Sibling SURGICAL HISTORY Past Surgical History: Procedure Laterality Date ??? BREAST BIOPSY Left 2018 benign ??? CHOLECYSTECTOMY ??? ENDOMETRIAL ABLATION 05/2021 ??? FOOT SURGERY 2014 plantar fascia w nerve release RT foot, developed DVT ??? HYSTERECTOMY 06/20/2022 Vnotes with cystoscopy ??? OTHER SURGICAL HISTORY 2009 Sclerotherapy ??? OVARIAN CYST REMOVAL ??? SALPINGECTOMY Bilateral 06/20/2022 REVIEW OF SYSTEMS Review of Systems: Review of Systems Constitutional: Negative. HENT: Negative. Eyes: Negative. Respiratory: Negative. Cardiovascular: Negative. Gastrointestinal: Negative. Genitourinary: Negative. Musculoskeletal: Negative. Skin: Negative. Neurological: Negative. All other systems reviewed and are negative. Hematological: Negative. Endocrine: Negative. Allergic/Immunologic: Negative. OBJECTIVE Objective: Physical Exam Constitutional: Appearance: Normal appearance. She is well-developed. Genitourinary: Vulva normal. Vaginal cuff intact. Cervix is absent. Uterus is absent. Breasts: Breasts are soft. Right: Normal. Left: Normal. Cardiovascular: Rate and Rhythm: Normal rate and regular rhythm. Pulmonary: Effort: Pulmonary effort is normal. Breath sounds: Normal breath sounds. Abdominal: General: Bowel sounds are normal. There is no distension. Palpations: Abdomen is soft. Tenderness: There is no abdominal tenderness. There is no guarding or rebound. Musculoskeletal: General: No swelling. Normal range of motion. Right lower leg: No edema. Left lower leg: No edema. Neurological: Mental Status: She is alert and oriented to person, place, and time. Skin: General: Skin is warm and dry. Psychiatric: Mood and Affect: Mood normal. Behavior: Behavior normal. Vitals and nursing note reviewed. Exam conducted with a icebox worker present. Vitals: Estimated body mass index is 26.96 kg/m?? as calculated from the following: Height as of 01/08/24: 5' 7 . Weight as of this encounter: 172 lb 1.9 oz. BP: 108/72 No LMP recorded (lmp unknown). Patient has had a hysterectomy. Assessment/Plan ICD-10-CM 1. Well woman exam with routine gynecological exam Z01.419 THIN PREP TIS PAP AND HR HPV DNA 2. Breast cancer screening by mammogram Z12.31 Bilateral screening mammogram Bilateral screening mammogram Assessment/Plan Annual: Patient presents today for an annual exam. Patient states she is doing well and has no complaints. Pap was obtained without difficulty and patient given mammogram order to have scheduled/obtained. Orders Placed This Encounter Procedures ??? Bilateral screening mammogram Follow Up: Patient is to return in one year for annual unless needed otherwise. Documented by Michaela Alfonso LPN on behalf of: VANNESSA Sheffield documented in this encounter Plan of Treatment DateTypeDepartmentCare Team (Latest Contact Info)Rjvcsfhlbry21/03/2026 9:00 AM ESTProcedure Visit [facility] [address] [address] May Calix PA [address] [place], [place] [id number] NameTypePriorityAssociated DiagnosesOrder ScheduleBilateral screening mammogram ImagingRoutine Breast cancer screening by mammogram Expected: 05/23/2025, Expires: 07/24/2026THIN PREP TIS PAP AND HR HPV DNA Pathology and CytologyRoutine Well woman exam with routine gynecological exam Ordered: 05/23/2025documented as of this encounter Visit Diagnoses Diagnosis Well woman exam with routine gynecological exam Routine gynecological examination Breast cancer screening by mammogram documented in this encounter Care Teams Team MemberRelationshipSpecialtyStart DateEnd Date Joon Hong MD [address] [facility] [place] [address] PCP - GeneralFamily Xzcfcefa00/22/23documented as of this encounter
--- OUTSIDE RECORDS SUMMARY | 2025-05-23 14:58 | XMS_ITS | Clinical Summary ---
Author Organization [facility] Address [address] [place] [address] Care Team Providers Care Cost Analyst Name Role Phone Joon Hong MD Primary Care Provider [phone] Allergies Active AllergyReactionsCriticalityNoted IjgjLvdltncdIjgthtpgiku80/15/2023 Egnvwgcnrrlr09/15/2023 Medications MedicationSigDispense QuantityRefillsLast FilledStart DateEnd DateStatus gabapentin (Neurontin) 300 MG capsule Take 100 mg by mouth in the morning and 100 mg before bedtime.05/06/2023ctive ferrous sulfate 325 (65 Fe) MG tablet 1 (one) time each day at the same time.Active desvenlafaxine (Pristiq) 100 MG 24 hr tablet Take 100 mg by mouth in the morning.05/05/2023ctive cholecalciferol (Vitamin D-3) 50 MCG (1999) capsule Vitamin D (Cholecalciferol)Active pantoprazole (ProtoNix) 40 MG EC tablet Take 40 mg by mouth in the morning and 40 mg before bedtime.05/05/2023ctive Nurtec 75 MG tablet dispersible take 1 tablet by mouth AT ONSET OF QXCPQSFB80/13/2024ctive BLACK ELDERBERRY PO Take 1 tablet by mouth DailyActive loratadine (Claritin) 5 MG chewable tablet Enmyeuak39/01/2025Discontinued dexAMETHasone (Decadron) 6 MG tablet Take 6 mg by mouth in the morning.Discontinued diclofenac (Voltaren) 75 MG EC tablet Take 75 mg by mouth in the morning and 75 mg before bedtime./06/2024 Discontinued Opzelura 1.5 % cream Discontinued metFORMIN (Glucophage) 500 MG tablet Indications:Insulin resistance,PCOS (polycystic ovarian syndrome)Take 1 tablet (500 mg) by mouth in the morning and 1 tablet (500 mg) in the evening. Take with meals. 60 tablet 110Discontinued Encounters DateTypeDepartmentCare OiehWyjdmmcasua56/01/2025 9:00 AM ESTOffice Visit [facility] OBJARODN [address] [place] [phone] May Calix PA Well woman exam with routine gynecological exam; Breast cancer screening by bvirlesdk77/01/2025amboo flowsheet [facility] VALERO [address] [place] [place] [phone] May Calix PA from Last 3 Months Family History Medical HistoryRelationNameCommentsVitiligoBrotherHeart diseaseFatherVitiligo FatherCOPDMotherCancerMotherbreastDeep vein thrombosisMotherHeart diseaseMother HypertensionMotherOsteoporosisMotherCancerSiblingMelanomaSiblingCancerSister MelanomaSisterThyroid diseaseSisterRelationNameStatusCommentsBrotherFather DeceasedMotherDeceasedSiblingSisterSonAlive2 Social History Tobacco UseTypesPacks/DayYears UsedDateSmoking Tobacco: Never Tobacco Cessation:Counseling Given: Not Answered Alcohol UseStandard Drinks/WeekCommentsNot Currently0 (1 standard drink = 0.6 oz pure alcohol)Caffeine intake: noneAUDIT-CAnswerDate RecordedQ1: How often do you have a drink containing alcohol?Monthly or less05/12/2023Q2: How many drinks containing alcohol do you have on a typical day when you are drinking?1 or 2 05/12/2023Q3: How often do you have six or more drinks on one occasion?Never 05/12/2023CommentsNoSex and Gender InformationValueDate RecordedSex Assigned at BirthNot on fileLegal VrgHmahoa52/15/2023 6:43 PM EDTGender Identity Not on fileSexual OrientationNot on file Last Filed Vital Signs Vital SignReadingTime TakenCommentsBlood Fkjbpmip835/7205/23/2025 9:30 AM EST Pulse--Temperature--Respiratory Rate--Oxygen Saturation--Inhaled Oxygen Concentration--Gmiyvj75.1 kg (172 lb 1.9 oz)05/23/2025 9:30 AM RAQAnbmff473.2 cm (5' 7 )01/08/2024 3:57 PM EDTBody Mass Index26.9601/08/2024 3:57 PM EDT Plan of Treatment DateTypeDepartmentCare Team (Latest Contact Info)Lncalkrzyhl77/03/2026 9:00 AM ESTProcedure Visit [facility] VALERO [address] [place] [place] [address] May Calix PA [address] [place] [address] Health MaintenanceDue DateLast DoneCommentsCT Flvpjwseryam04/22/1970Colonoscopy 1969Colorectal Cancer Pbnznnqff69/22/1970FIT-DNA1969FIT1969 FOBT1969 2425Aestifcijickt85/22/1970COVID-19 Vaccine ( season) , 05/22/2021Influenza Vaccine (#1), 04/12/2020, 04/13/2018, Additional history fqyzivSqwvezqwk47/05/202512/10/2023, 05/21/2023, 05/14/2022, Additional history existsCervical Cancer Screening 05/17/2029HPV/Oixngs0505/17/2029Pap Smear/, 05/14/2023, 05/07/2022neumococcal Vaccine: Pediatrics (0 to 5 Years) and At-Risk Patients (6 to 64 Years)Aged OutNo longer eligible based on patient's age to complete this topic Procedures Procedure NamePriorityDate/TimeAssociated DiagnosisCommentsMM TOMOSYNTHESIS SCREENING BI05/27/2024 3:19 PM EST PAP XEUYTJswrbes87/25/2024 12:00 AM ESTfrom Last 3 Months or Most Recently Relevant to Health Maintenance Results * MM TOMOSYNTHESIS SCREENING BI (05/27/2024 3:19 PM EST)Anatomical Region LateralityModalityOtherSpecimen (Source)Anatomical Location / Laterality Collection Method / VolumeCollection TimeReceived Time05/27/2024 3:19 PM EST Narrative 05/27/2024 3:20 PM EST [facility] ?[address] ? [place], [place] [address] ? Mammography Report ? Signed ? Patient: OUMOU,RENETTA M ?MR#: [id number] ?? : 1970 ?Acct:[id number] ?? Age/Sex: 53 / F ?ADM Date: 05/27/24 ?? Loc: MAMMO ? Attending Dr: Javid Watson D.O. ? Ordering Physician: Javid Watson D.O. ?Results: ? Date of Service: 05/27/24 ?Follow Up: ? Procedure(s): MM tomosynthesis screening BI ?? Accession Number(s): [id number] ? cc: Javid Watson D.O.; Joon Hong M.D. ? Patient Name: ? RENETTA OUMOU ? MR#: [id number] ? : 1970 ? Exam Date: 05/27/2024 ?? Ordering Doctor: DR JAVID WATSON . ? RADIOLOGY REPORT ? PROCEDURE: ? MM TOMOSYNTHESIS SCREENING BI ? COMPARISON: ? MM TOMOSYNTHESIS SCREENING BI, 05/19/2023. ? INDICATIONS: ? Screening ? Calculator Name ? NCI Breast Cancer Risk Assessment Tool ?? 5 Year Breast Cancer Risk ? 3.10% ?? Lifetime Breast Cancer Risk ? 20.90% ?? Personal Breast Cancer ?No ?? Personal Ovarian Cancer ? No ?? Treatments ? None ?? Family Cancers ? Mother with breast cancer at age 70; Sister with melanoma ?? cancer at age ??20. ? LOCATION: ? [facility] ? BREAST COMPOSITION: ? The breasts are heterogeneously dense,which may ?? obscure small masses. ? FINDINGS: ? DIAGNOSTIC CATEGORY 2--BENIGN FINDING. NO CHANGE FROM COMPARISON. ? Scattered benign-appearing calcifications are present. ??Scattered ?? benign-appearing lymph nodes are present. ? RIGHT BREAST: ??No significant suspicious finding. ? LEFT BREAST: ??No significant suspicious finding. ??Two stable micro clip ?? markers upper-outer quadrant ? RECOMMENDATIONS: ? ROUTINE MAMMOGRAM AND CLINICAL EVALUATION IN 12 MONTHS. ? PLEASE NOTE: ??A NORMAL MAMMOGRAM DOES NOT EXCLUDE THE POSSIBILITY OF BREAST ?? CANCER. ??A CLINICALLY SUSPICIOUS PALPABLE LUMP SHOULD BE BIOPSIED. ? Dictated by: Esau Starr MD on 05/27/2024 at 12:45 ? Approved by: Esau Starr MD on 05/27/2024 at 15:19 ? Dictated By: ?Esau Starr M.D. ? Signed By: ?05/27/24 1520 ? DD/ 1519 ? TD/TT: ? Pump Erector Helper: Procedure Note Radiology, Radiologist, - 05/27/[address] [address] Mammography Report Signed Patient: RENETTA COELLO MMR#: [id number] : 1970Acct:[id number] Age/Sex: 53 / FADM Date: 05/27/24 Loc: MAMMO Attending Dr: Javid Watson D.O. Ordering Physician: Javid Watson D.O.Results: Date of Service: 05/27/24Follow Up: Procedure(s): MM tomosynthesis screening BI Accession Number(s): [id number] cc: Javid Watson D.O.; Joon Hong M.D. Patient Name: RENETTA COELLO MR#: [id number] : 1970 Exam Date: 05/27/2024 Ordering Doctor: DR JAVID WATSON . RADIOLOGY REPORT PROCEDURE: MM TOMOSYNTHESIS SCREENING BI COMPARISON: MM TOMOSYNTHESIS SCREENING BI, 05/19/2023. INDICATIONS: Screening Calculator Name NCI Breast Cancer Risk Assessment Tool 5 Year Breast Cancer Risk 3.10% Lifetime Breast Cancer Risk 20.90% Personal Breast Cancer No Personal Ovarian Cancer No Treatments None Family Cancers Mother with breast cancer at age 70; Sister withmelanoma cancer at age 20. LOCATION: [facility] BREAST COMPOSITION: The breasts are heterogeneously dense,which may obscure small masses. FINDINGS: DIAGNOSTIC CATEGORY 2--BENIGN FINDING. NO CHANGE FROM COMPARISON. Scattered benign-appearing calcifications are present. Scattered benign-appearing lymph nodes are present. RIGHT BREAST: No significant suspicious finding. LEFT BREAST: No significant suspicious finding. Two stable micro clip markers upper-outer quadrant RECOMMENDATIONS: ROUTINE MAMMOGRAM AND CLINICAL EVALUATION IN 12 MONTHS. PLEASE NOTE: A NORMAL MAMMOGRAM DOES NOT EXCLUDE THE POSSIBILITY OFBREAST CANCER. A CLINICALLY SUSPICIOUS PALPABLE LUMP SHOULD BE BIOPSIED. Dictated by: Esau Starr MD on 05/27/2024 at 12:45 Approved by: Esau Starr MD on 05/27/2024 at 15:19 Dictated By: Esau Starr M.D. Signed By:05/27/24 1520 DD/ 1519 TD/TT: Pump Erector Helper: Authorizing ProviderResult TypeResult StatusCorey Shirley DOCLINISYNC IMAGINGFinal Result * Pap Smear (05/17/2024 12:00 AM EST)Specimen (Source)Anatomical Location / LateralityCollection Method / VolumeCollection TimeReceived TimeSwabCervical swab / Unknown Narrative Authorizing ProviderResult TypeResult StatusAmy [place] PALAB CYTOLOGY ORDERABLES Final ResultPerforming OrganizationAddressCity/State/ZIP CodePhone Number EXTERNAL LAB from Last 3 Months or Most Recently Relevant to Health Maintenance Insurance Care Teams Team MemberRelationshipSpecialtyStart DateEnd Joon Hong MD [address] [place] [address] PCP - GeneralFamily Wwqhjyxd11/22/23
--- OUTSIDE RECORDS SUMMARY | 2025-05-23 14:58 | XMS_ITS | Encounter Summary ---
Author Organization [facility] Address [address] [place] [address] Care Team Providers Care Interventional Radiology Tech Name Role Phone Joon Hong MD Primary Care Provider [phone] Encounter Details DateTypeDepartmentCare Team (Latest Contact Info)Gxkuvqqkgrq11/01/2025amboo flowsheet [facility] OBG[facility]ure [address] [place], [phone] May Calix PA [address] [place], [place] [address] Social History Tobacco UseTypesPacks/DayYears UsedDateSmoking Tobacco: NeverAlcohol [...] InformationValueDate RecordedSex Assigned at BirthNot on fileLegal EviSxiuoa71/15/2023 6:43 PM EDTGender IdentityNot on fileSexual OrientationNot on filedocumented as of this encounter Plan of Treatment DateTypeDepartmentCare Team (Latest Contact Info)Bpmqdvwpfbk06/03/2026 9:00 AM ESTProcedure Visit [facility] VALERO [address] [place] [address] May Calix PA [address] [place] [address] documented as of this encounter Visit Diagnoses Not on filedocumented in this encounter Care Teams Team MemberRelationshipSpecialtyStart DateEnd Date Joon Hong MD [address] [facility] [place] [address] PCP - GeneralFamily Zcknivnz76/22/23documented as of this encounter
--- OUTSIDE RECORDS SUMMARY | 2025-05-23 14:58 | XMS_ITS | Clinical Summary ---
Author Organization [facility] Address [address] [place] [address] Care Team Providers Care Assistant Professor Of Sociology Name Role Phone Joon Hong MD Primary Care Provider [phone] Allergies No known active allergies Medications MedicationSigDispense QuantityRefillsLast FilledStart DateEnd DateStatus METFORMIN 500 mg tablet Take 500 mg by mouth twice daily with meals.07/15/2013ctive FEXOFENADINE HCL (SONNY ORAL) Take 180 mg by mouth once daily.Active rivaroxaban (XARELTO) 20 mg tablet Take 1 tablet by mouth once daily. 90 tablet ctive Family History Medical HistoryRelationCommentsCOPDBrotherCOPDFatherHeartFatherBlood Disease MotherBreast CancerMotherCOPDMotherEmphysemaMotherHypertensionMotherOsteoporosis MotherCancerSistermelanomaThyroidSisterRelationStatusCommentsBrotherFatherMother Sister Social History Tobacco UseTypesPacks/DayYears UsedDateSmoking Tobacco: Passive Smoke Exposure - Never SmokerAlcohol UseStandard Drinks/WeekCommentsYes0 (1 standard drink = 0.6 oz pure alcohol)socialCommentsUnknownSex and Gender InformationValueDate RecordedSex Assigned at BirthNot on fileLegal XwxUghddd61/27/2014 8:54 AM EST Gender IdentityNot on fileSexual OrientationNot on file Last Filed Vital Signs Vital SignReadingTime TakenCommentsBlood Bwdrmynf656/8603 10:00 AM EST Hpcek99699/04/2014 10:00 AM XIIAvtgngmhhls58.2 ??C (98.9 ??F)08/24/2013 10:00 AM ESTRespiratory Hxqw2344 10:00 AM ESTOxygen Hyucvhpkwc94%08/24/2013 10:00 AM ESTInhaled Oxygen Concentration--Vqsapu16.1 kg (181 lb)08/24/2013 10:00 AM DTMHfwhkt090.2 cm (5' 7 )08/24/2013 10:00 AM ESTBody Mass Index28.35008/24/2013 10:00 AM EST Plan of Treatment Health MaintenanceDue DateLast DoneCommentsAnxiety Weifblbon28/22/1988Depression Ugjguukrb82/22/1988HIV Nksnqpxjm96/22/1988Hepatitis C Pvxtynhhy80/22/1988 DTaP,Tdap,Td Vaccine (1 - Tdap)1988Hepatitis B Vaccine (1 of 3 - 19+ 3- dose series)1988Cervical Cancer Ywqbmozwf66/22/1991Mammogram Screening 2009CT Druwvpnasrqu12/22/2015Cologuard (FIT-DNA)2014Colonoscopy 2014Colorectal Cancer Xasjlmkko37/22/2015Diabetes Xblcqjfuf48/22/2015Fecal Occult Blood2014Lipid Ghzzbfmiy43/22/8634Wtejmnwhswzqy39/22/2015 Pneumococcal Vaccine: 50+ (1 of 1 - PCV)11/12/2019Shingrix Vaccine (1 of 2) 11/12/2019Covid-19 Vaccine (1 - 2024- season)2025Influenza Vaccine (#1) 2025 Insurance Care Teams Team MemberRelationshipSpecialtyStart Date Joon Hong MD [facility]CP - [facility]/19/13
--- OUTSIDE RECORDS SUMMARY | 2025-05-23 15:18 | XMS_ITS | CCD ---
Author Organization [facility] Care Team Providers Care Population Geneticist Name Role Phone SHIRLEY ., DR HUA Consulting Unavailable HOY ., DR MORENO Primary Care Unavailable SHIRLEY ., DR HUA Attending Unavailable SHIRLEY ., DR HUA Admitting Unavailable VERONIQUEJAMESJOSE Consulting Unavailable CEASARASTERVELVET Consulting Unavailable GEMBUS, DICK Consulting Unavailable SHIRLEY [...] JOAN Admitting Unavailable DYLAN, JOAN Consulting Unavailable HORizwan ., DR MORENO Primary Care Unavailable DYLAN, JOAN Attending Unavailable DYLAN, JOAN Admitting Unavailable SHIRLEY ., DR HUA Consulting Unavailable HOY ., DR MORENO Primary Care Unavailable SHIRLEY ., DR UHA Attending Unavailable SHIRLEY ., DR HUA Admitting Unavailable [place], DR ROSSANA Teague Consulting Unavailable HOY ., DR MORENO Primary Care Unavailable SHIRLEY ., DR HUA Attending Unavailable SHIRLEY ., DR HUA Admitting Unavailable SHIRLEY ., DR HUA Consulting Unavailable SHIRLEY ., DR HUA Consulting Unavailable HOY ., DR MORENO Primary Care Unavailable SHIRLEY ., DR HUA Attending Unavailable SHIRLEY ., DR HUA Admitting Unavailable ZIEBER, DR CHEIKH Salguero Consulting Unavailable HOY ., DR MORENO Consulting Unavailable ANTHONYY ., DR MORENO Primary Care Unavailable DIANE ., DR MORENO Attending Unavailable DIANE ., DR MORENO Admitting Unavailable [place], DR ROSSANA Teague Consulting Unavailable MD Josh Hong Primary Care Provider [phone] Ly, DO Elizabeth Perez Attending Provider DO Javid Watson Attending Provider Ly, Elizabeth Perez Admitting Unavailable Brit, Elizabeth Perez Attending Unavailable Josh Hong Primary Care Unavailable Javid Watson Admitting Unavailable Javid Watson Attending Unavailable Josh Hong Primary Care Unavailable Josh Hong MD Primary Care Provider [phone] JAVID WATSON Attending Unavailable JAVID WATSON Attending Unavailable MAY JORGE Attending Unavailable MAY JORGE Attending Unavailable Josh Hong MD Primary Care Provider [phone] May Molina Unavailable Allergies Allergy ClassificationReported Allergen(s)Allergy TypeDate of OnsetReaction(s) Facility (2 sources)FluconazoleDrug Upccxhf52-56-0533Ysl [facility] Repository (1 source)levoFLOXacinDrug AllergyThe [facility] Repository (1 source)levoFLOXacinDrug Futnioi64-47-8891[facility] (9 sources)FluconazolePropensity to adverse ijqefvqhb86-71-6119[facility] Work Phone: (9 sources)levoFLOXacinDrug Bqfzvdm73-40-6257[facility] Medications Current Medications MedicationDrug Class(es)DatesSig (Normalized)Sig (Original)Black elderberry (2 sources)Start: 74-64-3879vgis 2000 mg by mouth twice dailyBlack elderberry Active 2000 MG PO Twice daily October 08, 2023 12:00amcholecalciferol 0.05 mg oral capsule (11 sources)Vitamin DStart: 53-00-3288osup 25 ug by mouth once daily Cholecalciferol (Vitamin D3) Active 25 MCG PO Daily October 03, 2023 12:00am cholecalciferol (Vitamin D-3) 50 MCG (1999 UT) capsule Vitamin D (Cholecalciferol) Glkwuv40 hr desvenlafaxine succinate 100 mg extended release oral tablet (11 sources)Serotonin and Norepinephrine Reuptake InhibitorStart: 16-03-0184bkrn 1 tablet by mouth twice daily, then take 1 tablet by mouth every twenty-four hoursDesvenlafaxine Succinate (Pristiq) 100 mg tablet extended release 24 hr Active 100 MG PO Twice daily October 03, 2023 12:00amStart: 21-09-1155dajo 1 tablet by mouth every twenty-four hours in the morningdesvenlafaxine (Pristiq) 100 MG 24 hr tablet Take 100 mg by mouth in the morning. 05/05/2023 Active dexamethasone 6 mg oral tablet (9 sources)CorticosteroidStart: 99-65-6008whhw 1 tablet by mouth in the morning dexAMETHasone (Decadron) 6 MG tablet Take 6 mg by mouth in the morning. 05/21/2022 Activediclofenac sodium 75 mg delayed release oral tablet (11 sources)Nonsteroidal Anti-inflammatory DrugStart: 69-77-5680pdzl 1 tablet by mouth in the morningdiclofenac (Voltaren) 75 MG EC tablet Take 75 mg by mouth in the morning and 75 mg before bedtime. 10/13/2023 ActiveStart: 95-14-1262wkrd 75 mg by mouth twice dailyDiclofenac Potassium Active 75 MG PO Twice daily October 03, 2023 12:00amferrous sulfate 325 mg oral tablet (9 sources)ferrous sulfate 325 (65 Fe) MG tablet 1 (one) time each day at the same time. Activefolic acid 0.4 mg / vitamin b12 0.5 mg oral tablet (2 sources)Vitamin C01Pnasy: 85-38-2125jdan 2 tablets by mouth once dailyVitamin T16-Zxmib Acid Active 2 TAB PO Daily October 08, 2023 12:00am administer with a mealgabapentin 300 mg oral capsule (11 sources)Anti-epileptic AgentStart: 90-09-8062srew 300 mg by mouth three times dailyGabapentin Active 300 MG PO Three times daily October 03, 2023 12:00amStart: 63-46-3196otwdmjdjxe (Neurontin) 300 MG capsule Take by mouth every 8 (eight) hours. 05/06/2023 Activeloratadine 5 mg chewable tablet (9 sources)loratadine (Claritin) 5 MG chewable tablet Claritin ActivemetFORMIN hydrochloride 500 mg oral tablet (5 sources)BiguanideStart: 88-07-8595bsot 1 tablet by mouth in the morning metFORMIN (Glucophage) 500 MG tablet Indications: Insulin resistance , PCOS (polycystic ovarian syndrome) Take 1 tablet (500 mg) by mouth in the morning and 1 tablet (500 mg) in the evening. Take with meals. 60 tablet 11 11/06/2023 ActiveOpzelura 1.5 % cream (9 sources)Start: 52-39-6918Xlplomvr 1.5 % cream 10/20/2023 Activepantoprazole 40 mg delayed release oral tablet (11 sources)Proton Pump InhibitorStart: 39-02-6248acxh 1 tablet by mouth in the morningpantoprazole (ProtoNix) 40 MG EC tablet Take 40 mg by mouth in the morning and 40 mg before bedtime. 05/05/2023 Activerimegepant 75 mg disintegrating oral tablet (13 sources)Start: 46-75-7744Jxcejl 75 MG tablet dispersible take 1 tablet by mouth AT ONSET OF MIGRAINE 11/03/2023 ActiveStart: 84-18-1269gink 1 tablet by mouth every other dayRimegepant (Nurtec Odt) 75 mg tablet,disintegrating Active 75 MG PO Q2D October 21, 2023 12:00am Completed/Discontinued Medications MedicationDrug Class(es)DatesSig (Normalized)Sig (Original)biotin 10 mg oral capsule (2 sources)Start: 10-03-2023 End: 93-83-1531Miysgj Discontinued MCG PO October 03, 2023 12:00am October 08, 2023 12:29pmomeprazole 40 mg delayed release oral capsule (2 sources)Proton Pump InhibitorStart: 10-03-2023 End: 50-85-4938gyil 40 mg by mouth twice dailyOmeprazole Discontinued 40 MG PO Twice daily October 03, 2023 12:00am October 08, 2023 12:30pm Problems Active Problems Problem ClassificationProblemDateDocumented DateEpisodic/ChronicAbdominal pain (6 sources)Pelvic and perineal pain; Translations: [Abdominal pain]Onset: 888674-40-8250SaomskfcOrvcbogfqx associated with dizziness or vertigo (2 sources)Vertigo; Translations: [Dizziness and giddiness]77-39-1258Blxynqtn Esophageal disorders (4 sources)Gastroesophageal reflux disease; Translations: [Gastro-esophageal reflux disease without esophagitis]97-42-6045YrlhymaYnxtlxg and fatigue (2 sources)Fatigue; Translations: [Other fatigue]91-57-0644ZydfzkvpXvyefewagr disorders (1 source)Menopausal and female climacteric states; Translations: [MENOPAUSAL FE CLIMACTERIC STATES]Onset: 62-37-4659DnqavtnNqiwxpina disorders (10 sources)Excessive and frequent menstruation with regular cycle; Translations: [Dysmenorrhea, unspecified]Onset: 95-79-3363DoqnodcIhgun diseases of veins and lymphatics (4 sources)Venous insufficiency (chronic) (peripheral); Translations: [VENOUS INSUFF CHRONIC PERIPHERAL]Onset: 34-70-4433HuxcbeyqBunpc endocrine disorders (1 source)Polycystic ovarian syndrome; Translations: [POLYCYSTIC OVARIAN SYNDROME]Onset: 50-94-7179WglvvadAihax gastrointestinal disorders (2 sources)Abdominal bloating; Translations: [Abdominal distension (gaseous)] 02-67-9837DwakvpvhVtcnl gastrointestinal disorders (2 sources)Mucus in stool; Translations: [Other fecal abnormalities]10-21-2023 EpisodicOther gastrointestinal disorders (2 sources)Abdominal distension (gaseous); Translations: [Flatulence, eructation, and gas pain]33-79-6839XojvhxnhWbxlf gastrointestinal disorders (2 sources)Other fecal abnormalities; Translations: [Nonspecific abnormal findings in stool contents]41-53-7554UlsuemciTlige screening for suspected conditions (not mental disorders or infectious disease) (10 sources)Encounter for screening mammogram for malignant neoplasm of breast; Translations: [Encounter for screening for malignant neoplasm of cervix]Onset: 35-66-4632YligyvjhDxazq skin disorders (2 sources)Vitiligo; Translations: [Vitiligo]15-36-3433NiiqiitrQwaozvb cyst (2 sources)Cyst of left ovary; Translations: [Unspecified ovarian cyst, left side]16-80-3171CdhjqygxQkiidcgo of female genital organs (1 source)Uterovaginal prolapse, unspecified; Translations: [UTEROVAGINAL PROLAPSE UNSPECIFIED]Onset: 56-42-5358MzzpyhtAsymjadm codes; unclassified (2 sources)Postmenopausal state; Translations: [Asymptomatic menopausal state] 75-42-5962QdgoznzdPjdwgsdgsjhj (1 source)PERSONAL HISTORY OF COVID-19; Translations: [PERSONAL HISTORY OF COVID-19]Onset: 02-12-5868Kktunsbkpurt (2 sources)CONTACT W/AND (SUSP) EXPOS COVID-19; Translations: [CONTACT W/AND (SUSP) EXPOS COVID-19]Onset: 28-58-7480Ertup infection (1 source)COVID-19; Translations: [COVID-19]Onset: 06-01-2022 Past or Other Problems Problem ClassificationProblemDateDocumented DateEpisodic/ChronicImmunizations and screening for infectious disease (1 source)Encounter for screening for human papillomavirus (HPV); Translations: [ENC SCREENING HUMAN PAPILLOMAVIRUS]Onset: 87-09-0521HgfiyrrfQvnueujxyaip diseases of female pelvic organs (1 source)Inflammatory disease of cervix uteri; Translations: [INFLAMMATORY DISEASE CERVIX UTERI]Onset: 18-21-6607EwqyljdaSxsnk aftercare (1 source)Other chcf (current) drug therapy; Translations: [OTH CLEARANCE REP CURRENT DRUG THERAPY]Onset: 09-48-8839OjfgtjdjLzmzq aftercare (1 source)long term care pharmacist (current) use of oral hypoglycemic drugs; Translations: [CLEARANCE REP USE ORAL HYPOGLYCEMIC DX]Onset: 73-16-6782AglhkyvuDatoy female genital disorders (1 source)Polyp of cervix uteri; Translations: [POLYP OF CERVIX UTERI]Onset: 14-73-5436PmkjwhqxPgjik hematologic conditions (4 sources)Personal history of diseases of the blood and blood-forming organs and certain disorders involving the immune mechanism; Translations: [PERS HX DZ BLD/BLD-FRM ORG IMMN MCH]Onset: 04-60-4933ZkuzslehWyrxn skin disorders (1 source)Vitiligo; Translations: [VITILIGO]Onset: 04-21-2147MpvesxipRfgpbxfgs; thrombophlebitis and thromboembolism (1 source)Personal history of other venous thrombosis and embolism; Translations: [PERS HX OTH VENOUS THROMBOSIS AND EMBO]Onset: 83-75-5215Wwkcyxgk Residual codes; unclassified (1 source)Family history of malignant neoplasm of breast; Translations: [FAMILY HX MALIG NEOPLASM OF BREAST]Onset: 93-65-2925JxlcxbrqHiiapfin codes; unclassified (1 source)Acquired absence of other specified parts of digestive tract; Translations: [ACQ ABSENCE OTH PART DIGESTV TRACT]Onset: 94-83-0395Mkdytduj Residual codes; unclassified (1 source)Asymptomatic menopausal state; Translations: [ASYMPTOMATIC MENOPAUSAL STATE]Onset: 44-87-6832SerunxrxBgtaujzj codes; unclassified (1 source)Family history of malignant neoplasm of other organs or systems; Translations: [FAM HX MALIG NEOPLASM OTH ORGN/SYS]Onset: 64-85-8500Bateuexj Unclassified (1 source)CONTACT W/AND (SUSP) EXPOS COVID-19; Translations: [CONTACT W/AND (SUSP) EXPOS COVID-19]Onset: 53-44-2490Hrivdrz tract infections (1 source)Urinary tract infection, site not specified; Translations: [UTI SITE NOT SPECIFIED]Onset: 98-89-9181Ebgntwcm Results Test NameValueInterpretationReference RangeFacilityXR DEXA AXIAL SKELETONon 63-21-9906[place]ar[place] [address] XRay Report Signed Patient: ELIZA PERERA MR#: [id number] : 1970 Acct:[id number] Age/Sex: 53 / F ADM Date: 05/27/24 Loc: MAMMO Attending Dr: Javid Watson D.O. Ordering Physician: Javid Watson D.O. Date of Service: 05/27/24 Procedure(s): XR DEXA axial skeleton Accession Number(s): [id number] cc: Javid Watson D.O.; Josh Hong M.D. [address] [address] Patient Name: ELIZA PERERA MRN: [id number] date: 1970 Sex: F Assigned Patient Location: [facility] Current Patient Location: Accession/Order Number: [id number] Exam Date: 05/27/2024 11:00 Report Date: 05/28/2024 05:08 At the request of: JAVID WATSON Procedure: XR DEXA axial skeleton EXAMINATION: XR DEXA axial skeleton HISTORY: Postmenopausal COMPARISON: DEXA bone densitometry 05/11/2021 TECHNIQUE: Dual-energy X-ray absorptiometry (DXA) was performed. FINDINGS: SPINE ANALYSIS: Average bone mineral density is 1.406 g/cm2. T-score (standard deviation relative to young adult mean): 1.9 . Not previously evaluated. HIP ANALYSIS: Lowest bone mineral density is within the right femoral neck, 0.979 g/cm2. T-score (standard deviation relative to young adult mean): -0.4 . -6.0% change since prior study. XR/XR DEXA axial skeleton IMPRESSION: World Health Organization Classification: Normal - Low Fracture Risk FRAX: Cannot be calculated. Pharmacologic treatment recommendations * No uniform recommendation applies to all patients. Management plans must be individualized. * Consider initiating pharmacologic treatment in postmenopausal women and men >= 50 years of age who have the following: Primary fracture prevention: * T-score <= - 2.5 at the femoral neck, total hip, lumbar spine, 33% radius (some uncertainty with existing data) by DXA. * Low bone mass (osteopenia: T-score between - 1.0 and - 2.5) at the femoral neck or total hip by DXA with a 10-year hip fracture risk >= 3% or a 10-year major osteoporosis-related fracture risk >= 20% (i.e., clinical vertebral, hip, forearm, or proximal humerus) based on the US-adapted FRAXregistered model. Secondary fracture prevention: * Fracture of the hip or vertebra regardless of BMD [4, 5]. * Fracture of proximal humerus, pelvis, or distal forearm in persons with low bone mass (osteopenia: T-score between - 1.0 and - 2.5). The decision to treat should be individualized in persons with a fracture of the proximal humerus, pelvis, or distal forearm who do not have osteopenia or low BMD [12, 13]. Jenni MS, Tova SL, Brad KL, Yobani EM, Paty KG, AJ, Carmen ES. The clinician's guide to prevention and treatment of osteoporosis. Osteoporos Int. 2021;33(10):2724-6586. doi: 10.1007/e76342-785-95055-u. Epub 2021Oct 18. Erratum in: Osteoporos Int. 2021Jan 17;: PMID: 93821199; PMCID: ABR7905887. Electronically authenticated by: CHEIKH RUSSO Date: 05/28/2024 05:08 Dictated By: Cheikh Russo M.D. Signed By: 05/28/24510 DD/ 0508 TD/TT: Generator Mechanic:TBHRadiology, Radiologist, - 05/28/2024 [place] [address] XRay Report Signed Patient: ELIZA PERERA MR#: [id number] : 1970 Acct:[id number] Age/Sex: 53 / F ADM Date: 05/27/24 Loc: MAMMO Attending Dr: Javid Watson D.O. Ordering Physician: Javid Watson D.O. Date of Service: 05/27/24 Procedure(s): XR DEXA axial skeleton Accession Number(s): [id number] cc: Javid Watson D.O.; Josh Hong M.D. The [address] [address] Patient Name: ELIZA PERERA MRN: [id number] date: 1970 Sex: F Assigned Patient Location: [facility] Current Patient Location: Accession/Order Number: [id number] Exam Date: 05/27/2024 11:00 Report Date: 05/28/2024 05:08 At the request of: JAVID PARTIDAZIO Procedure: XR DEXA axial skeleton EXAMINATION: XR DEXA axial skeleton HISTORY: Postmenopausal COMPARISON: DEXA bone densitometry 05/11/2021 TECHNIQUE: Dual-energy X-ray absorptiometry (DXA) was performed. FINDINGS: SPINE ANALYSIS: Average bone mineral density is 1.406 g/cm2. T-score (standard deviation relative to young adult mean): 1.9 . Not previously evaluated. HIP ANALYSIS: Lowest bone mineral density is within the right femoral neck, 0.979 g/cm2. T-score (standard deviation relative to young adult mean): -0.4 . -6.0% change since prior study. XR/XR DEXA axial skeleton IMPRESSION: World Health Organization Classification: Normal - Low Fracture Risk FRAX: Cannot be calculated. Pharmacologic treatment recommendations * No uniform recommendation applies to all patients. Management plans must be individualized. * Consider initiating pharmacologic treatment in postmenopausal women and men >= 50 years of age who have the following: Primary fracture prevention: * T-score <= - 2.5 at the femoral neck, total hip, lumbar spine, 33% radius (some uncertainty with existing data) by DXA. * Low bone mass (osteopenia: T-score between - 1.0 and - 2.5) at the femoral neck or total hip by DXA with a 10-year hip fracture risk >= 3% or a 10-year major osteoporosis-related fracture risk >= 20% (i.e., clinical vertebral, hip, forearm, or proximal humerus) based on the US-adapted FRAXregistered model. Secondary fracture prevention: * Fracture of the hip or vertebra regardless of BMD [4, 5]. * Fracture of proximal humerus, pelvis, or distal forearm in persons with low bone mass (osteopenia: T-score between - 1.0 and - 2.5). The decision to treat should be individualized in persons with a fracture of the proximal humerus, pelvis, or distal forearm who do not have osteopenia or low BMD [12, 13]. Jenni MS, Tova SL, Brad KL, Yobani EM, Paty KG, AJ, Carmen ES. The clinician's guide to prevention and treatment of osteoporosis. Osteoporos Int. 2021;33(10):2323-5784. doi: 10.1007/s76012-574-21766-x. Epub 2021Oct 18. Erratum in: Osteoporos Int. 2021Jan 17;: PMID: 14711909; PMCID: QAU1337073. Electronically authenticated by: CHEIKH RUSSO Date: 05/28/2024 05:08 Dictated By: Cheikh Russo M.D. Signed By: 05/28/24510 DD/ 0508 TD/TT: Generator Mechanic: [facility]PITALVandana HealthcareRadiology Study observation (narrative)[facility] HealthcareXR DEXA AXIAL SKELETONOrdered By: Radiologist Radiology on 77-14-5946[facility] Work Phone: mm TOMOSYNTHESIS SCREENING BIon 04-63-1523[place]fx[place] [address] Mammography Report Signed Patient: ELIZA PERERA MR#: [id number] : 1970 Acct:[id number] Age/Sex: 53 / F ADM Date: 05/27/24 Loc: MAMMO Attending Dr: Javid Watson D.O. Ordering Physician: Javid Watson D.O. Results: Date of Service: 05/27/24 Follow Up: Procedure(s): MM tomosynthesis screening BI Accession Number(s): [id number] cc: Javid Watson D.O.; Josh Hong M.D. Patient Name: ELIZA PERERA MR#: [id number] : 1970 Exam Date: 05/27/2024 Ordering Doctor: [...] LOCATION: [facility] BREAST COMPOSITION: The breasts are heterogeneously dense,which [...] PALPABLE LUMP SHOULD BE BIOPSIED. Dictated by: Rossana Velásquez MD on 05/27/2024 at 12:45 Approved by: Rossana Velásquez MD on 05/27/2024 at 15:19 Dictated By: Rossana Velásquez M.D. Signed By: 05/27/24 1520 DD/ 1519 TD/TT: Generator Mechanic:TBHRadiology, Radiologist, - 05/27/2024 [place] [address] Mammography Report Signed Patient: ELIZA PERERA MR#: [id number] : 1970 Acct:[id number] Age/Sex: 53 / F ADM Date: 05/27/24 Loc: MAMMO Attending Dr: Javid Watson D.O. Ordering Physician: Javid Watson D.O. Results: Date of Service: 05/27/24 Follow Up: Procedure(s): MM tomosynthesis screening BI Accession Number(s): [id number] cc: Javid Watson D.O.; Josh Hong M.D. Patient Name: ELIZA PERERA MR#: [id number] : 1970 Exam Date: 05/27/2024 Ordering Doctor: [...] LOCATION: [facility] BREAST COMPOSITION: The breasts are heterogeneously dense,which [...] PALPABLE LUMP SHOULD BE BIOPSIED. Dictated by: Rossana Velásquez MD on 05/27/2024 at 12:45 Approved by: Rossana Velásquez MD on 05/27/2024 at 15:19 Dictated By: Rossana Velásquez M.D. Signed By: 05/27/24 1528 DD/ 1519 TD/TT: Generator Mechanic: EVARISTO [facility] HospitalRadiology Study observation (narrative)[facility] TOMOSYNTHESIS SCREENING BIOrdered By: Radiologist Radiology on 61-29-5683[facility] Work Phone: aLL THYROID STIM HORMONEon 26-73-1808IQL Qn2.469 m[IU]/LNOMS HealthcareCLINISYNCNOMS HealthcareUS PELVIS W/ TRANSVAGINALon 91-43-9094[address] [address] Ultrasound Report Signed Patient: ELIZA PERERA MR#: [id number] : 1970 Acct:[id number] Age/Sex: 53 / F ADM Date: 04/13/24 Loc: US Attending Dr: Javid Watson D.O. Ordering Physician: Javid Watson D.O. Date of Service: 04/13/24 Procedure(s): US pelvis w/ transvaginal Accession Number(s): [id number] cc: Javid Watson D.O.; Josh Hong M.D. The [address] [address] Patient Name: ELIZA PERERA MRN: [id number] date: 1970 Sex: F Assigned Patient Location: US Current Patient Location: Accession/Order Number: [id number] Exam Date: 04/13/2024 15:38 Report Date: 04/14/2024 06:28 At the request of: JAVID WATSON Procedure: US pelvis w/ transvaginal EXAMINATION: US pelvis w/ transvaginal HISTORY: Adnexal Cyst ; left ovarian cyst COMPARISON: Ultrasound pelvis 11/01/2023, CT abdomen pelvis 03/22/2024 TECHNIQUE: Transabdominal and/or transvaginal sonographic examination was performed as indicated by examination type. FINDINGS: UTERUS: Hysterectomy. RIGHT OVARY: Not seen. LEFT OVARY: Contains a 2.6 cm cyst. Duplex Doppler demonstrates normal waveform and flow; resistive index 0.6. Ovary size: 4.2 x 2.3 x 3.8 cm CUL-DE-SAC: Unremarkable. No significant free fluid. BLADDER: Unremarkable. OTHER: None. US/US pelvis w/ transvaginal IMPRESSION: 1. Within the left ovary is a 2.6 cm benign-appearing cyst. This is significantly smaller than seen on 11/01/2023 and may represent a resolving cyst or a different cyst than previously seen. Consider follow-up imaging in 6 weeks to document resolution. 2. Prior hysterectomy. Electronically authenticated by: CHEIKH RUSSO Date: 04/14/2024 06:28 Dictated By: Cheikh Russo M.D. Signed By: 04/14/24629 DD/ 7 TD/TT: Generator Mechanic:TBHRadiology, Radiologist, - 04/14/2024 [place] [address] Ultrasound Report Signed Patient: ELIZA PERERA MR#: [id number] : 1970 Acct:[id number] Age/Sex: 53 / F ADM Date: 04/13/24 Loc: US Attending Dr: Javid Watson D.O. Ordering Physician: Javid Watson D.O. Date of Service: 04/13/24 Procedure(s): US pelvis w/ transvaginal Accession Number(s): [id number] cc: Javid Watson D.O.; Josh Hong M.D. [address] [address] Patient Name: ELIZA PERERA MRN: [id number] date: 1970 Sex: F Assigned Patient Location: [place] Current Patient Location: Accession/Order Number: [id number] Exam Date: 04/13/2024 15:38 Report Date: 04/14/2024 06:28 At the request of: JAVID WATSON Procedure: US pelvis w/ transvaginal EXAMINATION: US pelvis w/ transvaginal HISTORY: Adnexal Cyst ; left ovarian cyst COMPARISON: Ultrasound pelvis 11/01/2023, CT abdomen pelvis 03/22/2024 TECHNIQUE: Transabdominal and/or transvaginal sonographic examination was performed as indicated by examination type. FINDINGS: UTERUS: Hysterectomy. RIGHT OVARY: Not seen. LEFT OVARY: Contains a 2.6 cm cyst. Duplex Doppler demonstrates normal waveform and flow; resistive index 0.6. Ovary size: 4.2 x 2.3 x 3.8 cm CUL-DE-SAC: Unremarkable. No significant free fluid. BLADDER: Unremarkable. OTHER: None. US/US pelvis w/ transvaginal IMPRESSION: 1. Within the left ovary is a 2.6 cm benign-appearing cyst. This is significantly smaller than seen on 11/01/2023 and may represent a resolving cyst or a different cyst than previously seen. Consider follow-up imaging in 6 weeks to document resolution. 2. Prior hysterectomy. Electronically authenticated by: CHEIKH RUSSO Date: 04/14/2024 06:28 Dictated By: Cheikh Russo M.D. Signed By: 04/14/24629 DD/ 7 TD/TT: Generator Mechanic: EVARISTO HealthcareRadiology Study observation (narrative)EVARISTO HealthcareUS PELVIS W/ TRANSVAGINALOrdered By: Radiologist Radiology on 16-94-5564[facility] Work Phone: Loc [phone]: [phone] Received: 12/29/231316 Status: ANUSHA Collier Num: [id number] Spec Type: Surgical Subm Dr: Javid Watson Tissues: A Fallopian Tube Biopsy (RT TUBE REMNANT) Procedures: HE/2, Gross/Micro L4 Age/ Patient Sex Location Account Attending Physician Eliza Perera 53/F LABELL [id number] Javid Shirley SPEC NUM: [id number] RECD: 12/29/23 STATUS: ANUSHA BECKY NUM: [id number] CECILE: 12/26/23-[address]: Javid Watson ENTERED: 12/29/23 [facility] NETWORK DR: Glenda,Lab SPEC TYPE: Surgical DEPT: CASIMIRO [...] fluid. No normal tubal mucosa is identified. Seo Analyst sections are submitted in A1. CPT Codes 35192 Specimen: [id number] Received: 12/29/23 Status: ANUSHA Collier Num: [id number] Spec Type: Surgical Subm Dr: Javid Watson Tissues: A Fallopian Tube Biopsy (RT TUBE REMNANT) Procedures: HE/2, Gross/Micro L4 Patient: Eliza Perera [id number] (Continued) Signed (signature on file) Seth Blanton MD 12/30/[address] [place] [address] Physician GroupECG 12-LEADon [id number] [address] Electrocardiograph Report Signed Patient: ELIZA PERERA MR#: [id number] : 1970 Acct:[id number] Age/Sex: 53 / F ADM Date: Loc: SURGOUT Attending Dr: Javid Watson D.O. Ordering Physician: Javid Watson D.O. 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 Signed By: 12/16/232244 DD/ 1048 TD/TT: Generator Mechanic:ARNOLHRadiologrizwan Radiologist, - 12/16/2023 [place] [address] Electrocardiograph Report Signed Patient: ELIZA PERERA MR#: [id number] : 1970 Acct:[id number] Age/Sex: 53 / F ADM Date: Loc: SURGOUT Attending Dr: Javid Watson D.O. Ordering Physician: Javid Watson D.O. Date of Service: 12/16/23 Procedure(s): ECG 12 lead Accession Number(s): [id number] cc: [facility] Test Date: 2023-12-16 Pat Name: ELIZA PERERA Department: Room: - Gender: Female Supervisor Travel Information Center: : 1970 Requested By: JOSH HONG Order Number: [id number] Reading MD: LOPEZ HAINES Measurements Intervals [place] Rate: 67 P: 68 NM: 160 QRS: 58 QRSD: 81 T: 70 QT: 373 QTc: 394 Interpretive Statements SINUS RHYTHM Compared to ECG 06/11/2022 10:44:04 No significant changes Electronically Signed On 12-16-2023 22:45:08 EDT by LOPEZ HAINES Dictated By: Lopez Haines D.O. Signed By: 12/16/232244 DD/ 1048 TD/TT: Generator Mechanic: EVARISTO FungRadiology Study observation (narrative)EVARISTO Healthcare[facility] 12-LEAD Ordered By: Radiologist Radiology on [id number] Work Phone: Lo [phone]: [phone] Received: 10/21/231429 Status: SOUT Req Num: [id number] Spec Type: Surgical Subm Dr: Elizabeth Perea DO Tissues: A Small Intestine - Biopsy/Polyp (SMALL BOWEL) B GASTRIC FOR HP (GASTRIC HP) C Gastric Biopsy (GASTRIC POLYP) Procedures: HE/6, Gross/Micro L4/3, H PYLORI, IHC First AB Age/ Patient Sex Location Account Attending Physician TreverEliza denny 52/F [id number] Elizabeth Perea DO SPEC NUM: [id number] RECD: 10/21/23 STATUS: ANUSHA ANNTiffany NUM: [id number] CECILE: 10/21/23- SUBM DR: Elizabeth Perea DO ENTERED: 10/21/23 [facility] DR: SPEC TYPE: Surgical DEPT: S ORDERED: [...] tissue fragment, entirely submitted in B1. Specimen: [id number] Received: 10/21/23 Status: ANUSHA Collier Num: [id number] Spec Type: Surgical Subm Dr: Elizabeth Perea DO Tissues: A Small Intestine - Biopsy/Polyp (SMALL BOWEL) B GASTRIC FOR HP (GASTRIC HP) C Gastric Biopsy (GASTRIC POLYP) Procedures: /, Gross/Micro L4/3, H PYLORI, IHC First AB Patient: Eliza Perera [id number] (Continued) Specimen: [id number] Received: 10/21/23 (Continued) Gross Description (Continued) Signed (signature on file) Rossana Solares MD 10/22/23 1633 Specimen: [id number] Received: 10/21/23 Status: MARISSAErnie Collier Num: [id number] Spec Type: Surgical Subm Dr: Elizabeth Perea DO Tissues: A Small Intestine - Biopsy/Polyp (SMALL BOWEL) B GASTRIC FOR HP (GASTRIC HP) C Gastric Biopsy (GASTRIC POLYP) Procedures: HE/6, Gross/Micro L4/3, H PYLORI, IHC First AB Patient: Eliza Perera [id number] (Continued) Specimen: [id number] Received: 10/21/23 (Continued) Gross Description (Continued) C. Further labeled gastric polyp is a 0.4 x 0.2 x 0.1 cm menjivar mucosal tissue fragment, entirely submitted in C1. Clinical history: Rule out celiac, rule out H. pylori. CPT Codes 91785b9, 75699 Specimen: [id number] Received: 10/21/23 Status: ANUSHA Collier Num: [id number] Spec Type: Surgical Subm Dr: Elizabeth Perea, DO Tissues: A Small Intestine - Biopsy/Polyp (SMALL BOWEL) B GASTRIC FOR HP (GASTRIC HP) C Gastric Biopsy (GASTRIC POLYP) Procedures: HE/6, Gross/Micro L4/3, H PYLORI, IHC First AB Patient: Eliza Perera [id number] (Continued) Signed (signature on file) Rossana Solares MD 10/22/23 [facility] Physician GroupCytology Cervical or vaginal smear or scraping studyon [id number] Medical CenterVC VENOUS REFLUX RT [facility] [id number] VENOUS REFLUX RT LMTPatient: ELIZA PERERA Exam Date: 10/30/2022 : 1970 Gender:F Ordering : DR JOSH HONG . Admission #: [id number] Family : Order #: [id number] CLICK HERE TO VIEW EXAM RADIOLOGY REPORT [...] Compressibility: Normal. Flow: Moderate deep venous reflux. Axle And Frame Mechanic: None. Tech Note: Incompetent varicose vein lateral mid calf measures 2.7 mm with 0.3s reflux. Varicose vein distal lateral calf measures 4.2 mm with 2.3s reflux. CONCLUSION: 1. Moderate deep vein reflux 2. Moderate venous insufficiency right small saphenous vein 3. Incompetent varicose veins Dictated by: Rossana Velásquez MD on 10/30/2022 at 12:55 Approved by: Rossana Velásquez MD on 10/30/2022 at 12:59NormalThTuscarawas HospitalCBC AUTO DIFFon [id number] #0.1 103/ulNormal0.0-0.1The [facility] CincinnatiComment on above:Performed By: #### TSH #### [facility] [address] [place] [address] Dr. Marlene Salomonsophils/100 WBC (Bld)0.6 %Normal0.2-2.0The [facility] Comment on above:Performed By: #### TSH #### [facility] [address] [place] [address] Dr. Marlene Warren #0.0 103/ulNormal0.0-0.7The [facility] CincinnatiComment on above: Performed By: #### TSH #### [facility] [address] [place] [address] Dr. Marlene Saldanaosinophils/100 WBC (Bld)0.0 %Critically low0.9-7.0The [facility] CincinnatiComment on above:Performed By: #### TSH #### [facility] [address] [place] [address] Dr. Marlene Saldanarythrocyte distribution width (RBC) [Ratio]13.3 %Tttawy99.0-15.0 The [facility] CincinnatiComment on above:Performed By: #### TSH #### [facility] [address] [place] [address] Dr. Marlene BlantonHematocrit (Bld) [Volume fraction]42.3 %Nunekz91.0-48.0The [facility] CincinnatiComment on above:Performed By: #### TSH #### [facility] [address] [place] [address] Dr. Marlene BlantonHemoglobin (Bld) [Mass/Vol]13.0 g/eARebknj49.0-16.0The [facility] CincinnatiComment on above:Performed By: #### TSH #### [facility] [address] [place] [address] Dr. Marlene Ortiz #0.04 10e3/ulCritically high0.00-0.03The [facility] Comment on above:Performed By: #### TSH #### [facility] [address] [place] [address] Dr. Marlene Ortiz %0.4 %Normal0.0-0.5The [facility] CincinnatiComment on above: Performed By: #### TSH #### [facility] [address] [place] [address] Dr. Marlene FloydH #2.0 103/ulNormal1.2-3.8The [facility] CincinnatiComment on above:Performed By: #### TSH #### [facility] [address] [place] [address] Dr. Marlene Branchmphocytes/100 WBC (Bld)19.0 %Critically low20.5-60.0The [facility] CincinnatiComment on above:Performed By: #### TSH #### [facility] [address] [place] [address] Dr. Marlene Garland DIFF REQNONormalThe [facility] CincinnatiComment on above: Performed By: #### TSH #### [facility] [address] [place] [address] Dr. Marlene Medina (RBC) [Entitic mass]29.6 qwJnmzbp83.7-34.0The [facility] CincinnatiComment on above:Performed By: #### TSH #### [facility] [address] [place] [address] Dr. Marlene Medina (RBC) [Mass/Vol]30.7 g/cYWyaips90.9-35.2The [facility] CincinnatiComment on above:Performed By: #### TSH #### [facility] [address] [place] [address] Dr. Marlene Medina (RBC) [Entitic vol]96.4 lOHcecvf36.0-99.0The [facility] CincinnatiComment on above:Performed By: #### TSH #### [facility] [address] [place] [address] Dr. Marlene Don #0.7 103/ulNormal0.3-0.8The [facility] CincinnatiComment on above:Performed By: #### TSH #### [facility] [address] [place] [address] Dr. Marlene Cisnerosocytes/100 WBC (Bld)6.6 %Normal1.7-12.0[facility] Comment on above:Performed By: #### TSH #### [facility] [address] [place] [address] Dr. Marlene Thakkar #7.7 103/ulCritically high1.4-6.5The [facility] Comment on above:Performed By: #### TSH #### [facility] [address] [place] [address] Dr. Marlene Saeedutrophils/100 WBC (Bld)73.4 %Dtpvne07.0-75.0The [facility] CincinnatiComment on above:Performed By: #### TSH #### [facility] [address] [place] [address] Dr. Marlene Morse mean volume (Bld) [Entitic vol]8.9 fLCritically low 9.5-13.5The [facility] on above:Performed By: #### TSH #### [facility] [address] [place] [address] Dr. Marlene BlantonPLT288 103/zoXofcfd917-268Rwn [facility] on above: Performed By: #### TSH #### [facility] [address] [place] [address] Dr. Marlene BlantonRBC4.39 106/ulNormal4.20-5.40The [facility] on above:Performed By: #### TSH #### [facility] [address] [place] [address] Dr. Marlene BlantonWBC10.5 103/ulNormal4.0-11.0The [facility] on above:Performed By: #### TSH #### [facility] [address] [place] [address] Dr. Marlene Schreiber T4on 13-84-5616Pphk T4 [Mass/Vol]0.98 ng/dLNormal0.76-1.46 The [facility] on above:Performed By: #### FT4 #### [facility] [address] [place] [address] Dr. Marlene BlantonPROTIMEon 10-24-0511XBO Coag (PPP) [Relative time]0.95 {INR} NormalThe [facility] on above:Performed By: #### PT, PTT #### [facility] [address] [place] [address] Dr. Marlene Sloan GUIDELINESSEE Regional Medical CenterCommymichigan medical center [place] on above:Result Comment: DESIRED INR: 2.0 - 3.0 CONDITIONS NOT LISTED BELOW 2.5 - 3.5 FOR PROSTHETIC HEART VALVE REPLACEMENT 2.5 - 3.5 RECURRENT THROMBOSIS Performed By: #### PT, PTT #### [facility] [address] [place] [address] Dr. Marlene Gallagher Coag (PPP) [Time]10.1 sNormal9.0-11.6The [facility] Comment on above:Performed By: #### PT, PTT #### [facility] [address] [place] [address] Dr. Marlene Reyes 41-28-4381mAQV Coag (Bld) [Time]27.2 oBvxech67.3-36.2The [facility] CincinnatiComment on above:Performed By: #### PT, PTT #### [facility] [address] [place] [address] Dr. Marlene Burns 05-29-7734RZK7.916 uIU/mLNormal0.358-3.740The [facility] CincinnatiComment on above:Performed By: #### TSH #### [facility] [address] [place] [address] Dr. Marlene Hudson 18-27-4726Yuuj nitrogen [Mass/Vol]8.0 mg/dLNormal7.0-18.0 The [facility] CincinnatiComment on above:Performed By: #### CBC #### [facility] [address] [place] [address] Dr. Marlene Medina AUTO DIFFon 33-94-7776KWPJ #0.0 103/ulNormal0.0-0.1[facility] CenterComment on above:Performed By: #### TSH #### [facility] [address] [place] [address] Dr. Marlene BlantonBasophils/100 WBC (Bld)0.2 %Normal0.2-2.0The [facility] Comment on above:Performed By: #### TSH #### [facility] [address] [place] [address] Dr. Marlene Warren #0.0 103/ulNormal0.0-0.7The [facility] CincinnatiComment on above: Performed By: #### TSH #### [facility] [address] [place] [address] Dr. Marlene Saldanaosinophils/100 WBC (Bld)0.1 %Critically low0.9-7.0The [facility] CincinnatiComment on above:Performed By: #### TSH #### [facility] [address] [place] [address] Dr. Marlene Saldanarythrocyte distribution width (RBC) [Ratio]13.4 %Gbijoq20.0-15.0 [facility] CenterComment on above:Performed By: #### TSH #### [facility] [address] [place] [address] Dr. Marlene BlantonHematocrit (Bld) [Volume fraction]33.6 %Critically low36.0-48.0 The [facility] CincinnatiComment on above:Performed By: #### TSH #### [facility] [address] [place] [address] Dr. Marlene BlantonHemoglobin (Bld) [Mass/Vol]10.8 g/dLCritically low12.0-16.0The [facility] CincinnatiComment on above:Result Comment: post surgeryPerformed By: #### TSH #### [facility] [address] [place] [address] Dr. Marlene Ortiz #0.06 10e3/ulCritically high0.00-0.03[facility] Comment on above:Performed By: #### TSH #### [facility] [address] [place] [address] Dr. Marlene Ortiz %0.5 %Normal0.0-0.5ThTuscarawas HospitalComment on above: Performed By: #### TSH #### [facility] [address] [place] [address] Dr. Marlene FloydH #2.0 103/ulNormal1.2-3.8The [facility] CincinnatiComment on above:Performed By: #### TSH #### [facility] [address] [place] [address] Dr. Marlene Branchmphocytes/100 WBC (Bld)16.1 %Critically low20.5-60.0The [facility] CincinnatiComment on above:Performed By: #### TSH #### [facility] [address] [place] [address] Dr. Marlene Garland DIFF REQNONormalThe [facility] CincinnatiComment on above: Performed By: #### TSH #### [facility] [address] [place] [address] Dr. Marlene Medina (RBC) [Entitic mass]29.0 yxYwipks90.7-34.0The [facility] CincinnatiComment on above:Performed By: #### TSH #### [facility] [address] [place] [address] Dr. Marlene Medina (RBC) [Mass/Vol]32.1 g/sOJlnyta17.9-35.2The [facility] CincinnatiComment on above:Performed By: #### TSH #### [facility] [address] [place] [address] Dr. Marlene Medina (RBC) [Entitic vol]90.1 iFLickdp36.0-99.0The [facility] CincinnatiComment on above:Performed By: #### TSH #### [facility] [address] [place] [address] Dr. Marlene Don #0.7 103/ulNormal0.3-0.8The [facility] CincinnatiComment on above:Performed By: #### TSH #### [facility] [address] [place] [address] Dr. Marlene Cisnerosocytes/100 WBC (Bld)5.3 %Normal1.7-12.0[facility] Comment on above:Performed By: #### TSH #### [facility] [address] [place] [address] Dr. Marlene Thakkar #9.7 103/ulCritically high1.4-6.5The [facility] Comment on above:Performed By: #### TSH #### [facility] [address] [place] [address] Dr. Marlene Saeedutrophils/100 WBC (Bld)77.8 %Critically high43.0-75.0The [facility] CincinnatiComment on above:Performed By: #### TSH #### [facility] [address] [place] [address] Dr. Marlene BlantonPlatelet mean volume (Bld) [Entitic vol]8.5 fLCritically low 9.5-13.5The [facility] on above:Performed By: #### TSH #### [facility] [address] [place] [address] Dr. Marlene BlantonPLT248 103/rrVqtczl210-124Kjv [facility] CincinnatiComment on above: Performed By: #### TSH #### [facility] [address] [place] [address] Dr. Marlene BlantonRBC3.73 106/ulCritically low4.20-5.40The [facility] CincinnatiCommymichigan medical [facility] [place] on above:Performed By: #### TSH #### [facility] [address] [place] [address] Dr. Marlene BlantonWBC12.4 103/ulCritically high4.0-11.0The [facility] CincinnatiCommymichigan [facility] [place] on above:Performed By: #### TSH #### [facility] [address] [place] [address] Dr. Marlene BlantonCREATININEon 74-43-3017Zggtinludv [Mass/Vol]0.87 mg/dLNormal 0.55-1.02The [facility] on above:Performed By: #### CBC #### [facility] [address] [place] [address] Dr. Marlene SaldanaGFR-AF MACANESE>60Normal>=60The [facility] on above:Performed By: #### CBC #### [facility] [address] [place] [address] Dr. Marlene SaldanaGFR-NON AF MACANESE>60Normal>=60The [facility] on above:Performed By: #### CBC #### [facility] [address] [place] [address] Dr. Marlene CharlesC AUTO DIFFon 51-03-1974MUUR #0.1 103/ulNormal0.0-0.1The [facility] on above:Performed By: #### CBC #### [facility] [address] [address] [address] Marlene BlantonBasophils/100 WBC (Bld)0.5 %Normal0.2-2.0The [facility] Comment on above:Performed By: #### CBC #### [facility] [address] [place] [address] Dr. Marlene Warren #0.0 103/ulNormal0.0-0.7The [facility] CincinnatiComment on above: Performed By: #### CBC #### [facility] [address] [place] [address] Dr. Marlene Saldanaosinophils/100 WBC (Bld)0.1 %Critically low0.9-7.0The [facility] CincinnatiComment on above:Performed By: #### CBC #### [facility] [address] [place] [address] Dr. Marlene Saldanarythrocyte distribution width (RBC) [Ratio]13.4 %Zcilpe78.0-15.0 The [facility] CincinnatiComment on above:Performed By: #### CBC #### [facility] [address] [place] [address] Dr. Marlene BlantonHematocrit (Bld) [Volume fraction]39.8 %Hxtgpp79.0-48.0The [facility] CincinnatiComment on above:Performed By: #### CBC #### [facility] [address] [place] [address] Dr. Marlene BlantonHemoglobin (Bld) [Mass/Vol]13.2 g/yYBcwbbe86.0-16.0The [facility] CincinnatiComment on above:Performed By: #### CBC #### [facility] [address] [place] [address] Dr. Marlene Ortiz #0.05 10e3/ulCritically high0.00-0.03The [facility] Comment on above:Performed By: #### CBC #### [facility] [address] [place] [address] Dr. Marlene Ortiz %0.5 %Normal0.0-0.5The [facility] HospitalComment on above: Performed By: #### CBC #### [facility] [address] [address] [address] Marlene Ruffin #2.4 103/ulNormal1.2-3.8The [facility] CincinnatiCommymich[facility] [place] on above:Performed By: #### CBC #### [facility] [address] [address] [address] Marlene Floydhocytes/100 WBC (Bld)24.7 %Tnjudp99.5-60.0The [facility] CincinnatiComment on above:Performed By: #### CBC #### [facility] [address] [address] [address] Marlene Garland DIFF REQNONormalThe [facility] CincinnatiCommymich[facility] [place] on above: Performed By: #### CBC #### [facility] [address] [place] [address] Dr. Marlene Medina (RBC) [Entitic mass]29.7 bgVthtnf22.7-34.0The [facility] CincinnatiComment on above:Performed By: #### CBC #### [facility] [address] [place] [address] Dr. Marlene Medina (RBC) [Mass/Vol]33.2 g/mRUwiymi00.9-35.2The [facility] on above:Performed By: #### CBC #### [facility] [address] [place] [address] Dr. Marlene Medina (RBC) [Entitic vol]89.4 mKStvjzl59.0-99.0The [facility] CincinnatiComment on above:Performed By: #### CBC #### [facility] [address] [address] [address] Marlene Don #0.8 103/ulNormal0.3-0.8The [facility] CincinnatiCommymich[facility] [place] on above:Performed By: #### CBC #### [facility] [address] [place] [address] Dr. Marlene Cisnerosocytes/100 WBC (Bld)7.9 %Normal1.7-12.0The [facility] Comment on above:Performed By: #### CBC #### [facility] [address] [address] [address] Marlene Thakkar #6.3 103/ulNormal1.4-6.5The [facility] CincinnatiComment on above:Performed By: #### CBC #### [facility] [address] [address] [address] Marlene Saeedutrophils/100 WBC (Bld)66.3 %Gcfptr68.0-75.0The [facility] CincinnatiComment on above:Performed By: #### CBC #### [facility] [address] [place] [address] Dr. Marlene Jordanlet mean volume (Bld) [Entitic vol]8.3 fLCritically low 9.5-13.5The [facility] CincinnatiComment on above:Performed By: #### CBC #### [facility] [address] [place] [address] Dr. Marlene BlantonPLT300 103/wwSpygks263-513Aqv [facility] CincinnatiComment on above: Performed By: #### CBC #### [facility] [address] [place] [address] Dr. Marlene BlantonRBC4.45 106/ulNormal4.20-5.40The [facility] CincinnatiComment on above:Performed By: #### CBC #### [facility] [address] [place] [address] Dr. Marlene BlantonWBC9.6 103/ulNormal4.0-11.0The [facility] CincinnatiComment on above: Performed By: #### CBC #### [facility] [address] [place] [address] Dr. Marlene BlantonPRETania QUANT HCGon 90-51-3564UJW QUANT1 mIU/mLNormalThe [facility] CincinnatiComment on above:Performed By: #### PREGQNT #### [facility] [address] [place] [address] Dr. Marlene Parks RANGESEE [facility] CincinnatiComment on above: Result Comment: 5-50 0.2-1 WEEK 50-500 1-2 WEEKS 100-5,000 2-3 WEEKS 500-10,000 3-4 WEEKS 1,000-50,000 4-5 WEEKS 10,000-100,000 5-6 WEEKS 15,000-200,000 6-8 WEEKS 10,000-100,000 2-3 MONTHSPerformed By: #### PREGQNT #### [facility] [address] [place] [address] Dr. Marlene BlantonTYPE AND SCREENon 11-87-6382TPWW AND SCREENNegativeNormalThe [facility] CincinnatiComment on above:Performed By: #### CBC #### [facility] [address] [place] [address] Dr. Marlene BlantonASYMPTOMATIC COVID-19 ANTIGENon 66-02-9919EDA StatementSEE BELOW NormalUpper Valley Medical Center on above:Result Comment: This test has not been FDA [...] declaration is terminated or authorization is revoked sooner.Performed By: #### CBC #### [facility] [address] [place] [address] Dr. Marlene Pino-CoV-2 (COVID-19) RNA AUSTIN+probe Ql (Unsp spec)Positive Critically abnormalNEGATIVEUpper Valley Medical Center on above:Result Comment: SARS-CoV-2 antigen present; does not rule out coinfection with other pathogens. Performed By: #### CBC #### [facility] [address] [place] [address] Dr. Marlene BlantonCovid-19 PCR (CVDTBH)on 39-14-6249TXBD-CoV-2 (COVID-19) RNA AUSTIN+probe Ql (Unsp spec)DetectedCritically abnormalNOT DETECTEDThe [facility] CincinnatiComment on above:Result Comment: This test is not yet approved or cleared by the [place] FDA. When there are no FDA-approved or cleared tests available, and other criteria are met, FDA can make tests available under an emergency access mechanism called an Emergency Use Authorization (EUA). The EUA for this test is supported by the Generator Mechanic of Health and Human Service's declaration that circumstances exist to justify the emergency use of in vitro diagnostics for the detection and/or diagnosis of the virusthat causes COVID-19. This EUA will remain in effect for the duration of the COVID-19 declaration ju stifying emergency of IVDs, unless it is terminated or revoked by the FDA (after which the test mayno longer be used).Performed By: #### CVDTBH #### [facility] [address] [place] [address] Dr. Marlene Wilson ACOG PANEL 2: 30 to 65on 05-15-2022..NormalThe [facility] CincinnatiComment on above:Result Comment: Performed at: WBPerformed By: #### [id number] #### [facility] [address] [place] [address] Dr. Marlene BlantonAge Gdln ACOG Gobodgy07-56HahnpxVjiSt. Charles HospitalComment on above:Performed By: #### [id number] #### [facility] [address] [place] [address] Dr. Marlene BlantonDIAGNOSIS:CommentNoHenry County HospitalComment on above: Result Comment: NEGATIVE FOR INTRAEPITHELIAL LESION OR MALIGNANCY. FUNGAL ORGANISMS MORPHOLOGICALLY CONSISTENT WITH BAILEY SPECIES ARE PRESENT. Performed at: WBPerformed By: #### [id number] #### [facility] [address] [place] [address] Dr. Marlene BlantonHPV AptimaNegativeNormalNegativeTrumbull Regional Medical CenterComment on above:Result Comment: This nucleic acid amplification test detects fourteen high-risk HPV types (16,18,31,33,35,39,45,51,52,56,58,59,66,68) without differentiation. Performed at: =GPerformed By: #### [id number] #### [facility] [address] [place] [address] Dr. Marlene BlantonHPV Genotype ReflexCommentProMedica Defiance Regional Hospital on above:Result Comment: Criteria not met, HPV Genotype not performed. Performed at: WBPerformed By: #### [id number] #### [facility] [address] [place] [address] Dr. Marlene BlantonMethodology:CommentProMedica Defiance Regional Hospital on above: Result Comment: This liquid based ThinPrep(R) pap test was screened with the use of an image guided system. Performed at: WBPerformed By: #### [id number] #### [place] [address] Dr[address] Marlene BlantonNote:CommentProMedica Defiance Regional Hospital on above:Result Comment: The Pap smear is a screening test designed to aid in the detection of premalignant and malignant conditions of the uterine cervix. It is not a diagnostic procedure and should not be used as the sole means of detecting cervical cancer. Both false-positive and false-negative reports do occur. . Performed at: WBPerformed By: #### [id number] #### [place] [address] Dr. Marlene BlantonPerformed by:CommentProMedica Defiance Regional Hospital on above: Result Comment: Magan Gillespie, Senior Business Manager (ASCP) Performed at: WBPerformed By: #### [id number] #### [place] [address] Dr[address] Marlene BlantonSpecimen adequacy:CommentProMedica Defiance Regional Hospital on above:Result Comment: Satisfactory for evaluation. No endocervical component is identified. Performed at: WBPerformed By: #### [id number] #### [facility] [address] [place] [address] Dr. Marlene BlantonMG MAMM SCREEN 3D JENNIFER CADon 27-67-9199XS MAMM SCREEN 3D JENNIFER CAD Patient: ELIZA PERERA Exam Date: 05/14/2022 : 1970 Gender:F Ordering : DR JAVID WATSON . Admission #: [id number] Family : DR JOSH HONG . Order #: [id number] CLICK HERE TO VIEW EXAM RADIOLOGY REPORT [...] LOCATION: The [facility] BREAST COMPOSITION: Heterogeneously dense,which may obscure small [...] by: Cheikh Russo M.D. on 05/14/2022 at 14:48[facility] HospitalUS PELVIS AND TRANSVAGon 65-95-6529OX PELVIS AND TRANSVAGEXAMINATION: US PELVIS AND TRANSVAG HISTORY: Irregular periods [...] Electronically authenticated by: ROSSANA VELÁSQUEZ Date: 2022-05-09 13:04NormalThSouthwest General Health Center AUTO DIFFon 38-70-7878BJRI #0.1 103/ulNormal0.0-0.1The [facility] CincinnatiComment on above:Performed By: #### TSH #### [facility] [address] [place] [address] Dr. Marlene BlantonBasophils/100 WBC (Bld)0.7 %Normal0.2-2.0[facility] Comment on above:Performed By: #### TSH #### [facility] [address] [place] [address] Dr. Marlene [place] #0.0 103/ulNormal0.0-0.7The [facility] CincinnatiComment on above: Performed By: #### TSH #### [facility] [address] [place] [address] Dr. Marlene Saldanaosinophils/100 WBC (Bld)0.0 %Critically low0.9-7.0The [facility] CincinnatiComment on above:Performed By: #### TSH #### [facility] [address] [place] [address] Dr. Marlene Saldanarythrocyte distribution width (RBC) [Ratio]13.4 %Gcanty98.0-15.0 The [facility] CincinnatiComment on above:Performed By: #### TSH #### [facility] [address] [place] [address] Dr. Marlene BlantonHematocrit (Bld) [Volume fraction]42.1 %Tfmpfp38.0-48.0The [facility] CincinnatiComment on above:Performed By: #### TSH #### [facility] [address] [place] [address] Dr. Marlene BlantonHemoglobin (Bld) [Mass/Vol]13.8 g/sCPubamm16.0-16.0The [facility] CincinnatiComment on above:Performed By: #### TSH #### [facility] [address] [place] [address] Dr. Marlene Ortiz #0.04 10e3/ulCritically high0.00-0.03The [facility] Comment on above:Performed By: #### TSH #### [facility] [address] [place] [address] [address] Marlene Ortiz %0.4 %Normal0.0-0.5The [facility] CincinnatiComment on above: Performed By: #### TSH #### [facility] [address] [place] [address] [address] Marlene Ruffin #2.1 103/ulNormal1.2-3.8The [facility] CincinnatiComment on above:Performed By: #### TSH #### [facility] [address] [place] [address] Dr. Marlene Floydhocytes/100 WBC (Bld)23.3 %Qzbfvy05.5-60.0The [facility] CincinnatiComment on above:Performed By: #### TSH #### [facility] [address] [place] [address] Dr. Marlene KahnUAL DIFF REQNONormalThe [facility] CincinnatiComment on above: Performed By: #### TSH #### [facility] [address] [place] [address] Dr. Marlene Medina (RBC) [Entitic mass]29.3 eyVoekio08.7-34.0The [facility] Medical Centerment on above:Performed By: #### TSH #### [facility] [address] [place] [address] Dr. Marlene Medina (RBC) [Mass/Vol]32.8 g/bJNwnhft76.9-35.2The [facility] Medical Centerment on above:Performed By: #### TSH #### [facility] [address] [place] [address] Dr. Marlene Medina (RBC) [Entitic vol]89.4 eSTkczeo19.0-99.0The [facility] CincinnatiComment on above:Performed By: #### TSH #### [facility] [address] [place] [address] Dr. Marlene Don #0.7 103/ulNormal0.3-0.8The Glenda HospitalComment on above:Performed By: #### TSH #### [facility] [address] [place] [address] [address] Marlene Cisnerosocytes/100 WBC (Bld)7.3 %Normal1.7-12.0The [facility] on above:Performed By: #### TSH #### [facility] [address] [place] [address] [address] Marlene SaeedUT #6.1 103/ulNormal1.4-6.5The [facility] CincinnatiComment on above:Performed By: #### TSH #### [facility] [address] [place] [address] Dr. Marlene Saeedutrophils/100 WBC (Bld)68.3 %Ngxyru82.0-75.0The [facility] CincinnatiComment on above:Performed By: #### TSH #### [facility] [address] [place] [address] Dr. Marlene BlantonPlatelet mean volume (Bld) [Entitic vol]8.8 fLCritically low 9.5-13.5The [facility] CincinnatiComment on above:Performed By: #### TSH #### [facility] [address] [place] [address] Dr. Marlene BlantonPLT310 103/ciDdmhar081-727Mks [facility] CincinnatiComment on above: Performed By: #### TSH #### [facility] [address] [place] [address] Dr. Marlene BlantonRBC4.71 106/ulNormal4.20-5.40The [facility] CincinnatiComment on above:Performed By: #### TSH #### [facility] [address] [place] [address] Dr. Marlene BlantonWBC9.0 103/ulNormal4.0-11.0The [facility] CincinnatiComment on above: Performed By: #### TSH #### [facility] [address] [place] [address] Dr. Marlene Schreiber T4on 12-45-4220Bvoa T4 [Mass/Vol]1.09 ng/dLNormal0.76-1.46 The [facility] CincinnatiComment on above:Performed By: #### TSH #### [facility] [address] [place] [address] Dr. Marlene Mcelroy QUANT HCGon 94-89-4642ZTL QUANT1 mIU/mLNormalTrumbull Regional Medical CenterCommymichigan medical center [facility] on above:Performed By: #### TSH, PREGQNT #### [facility] [address] [place] [address] Dr. Marlene Parks RANGESChildren's Hospital for RehabilitationComment on above: Result Comment: 5-50 0.2-1 WEEK 50-500 1-2 WEEKS 100-5,000 2-3 WEEKS 500-10,000 3-4 WEEKS 1,000-50,000 4-5 WEEKS 10,000-100,000 5-6 WEEKS 15,000-200,000 6-8 WEEKS 10,000-100,000 2-3 MONTHSPerformed By: #### TSH, PREGQNT #### [facility] [address] [place] [address] Dr. Marlene BlantonPROTIMEon 76-85-0380ZVS Coag (PPP) [Relative time]0.95 {INR} NormalTrumbull Regional Medical CenterCommymichigan medical center saginaw on above:Performed By: #### CBC #### [facility] [address] [place] [address] Dr. Marlene Sloan Parkview Health Bryan HospitalComment on above:Result Comment: DESIRED INR: 2.0 - 3.0 CONDITIONS NOT LISTED BELOW 2.5 - 3.5 FOR PROSTHETIC HEART VALVE REPLACEMENT 2.5 - 3.5 RECURRENT THROMBOSIS Performed By: #### CBC #### [facility] [address] [place] [address] Dr. Marlene BlantonPT Coag (PPP) [Time]10.3 sNormal9.0-11.6ThTuscarawas Hospital Comment on above:Performed By: #### CBC #### [facility] [address] [place] [address] Dr. Marlene Reyes 78-31-2338vECK Coag (Bld) [Time]26.3 kGcuxwa52.3-36.2The [facility] CincinnatiComment on above:Performed By: #### CBC #### [facility] [address] [place] [address] Dr. Marlene Burns 00-49-2543OBS1.001 uIU/mLCritically high0.358-3.740The [facility] CincinnatiComment on above:Performed By: #### TSH, PREGQNT #### [facility] [address] [place] [address] [address] Marlene Erazo 00-45-3587Kvtvpnubh From: Jesenia Price LPN To: CORNELL - Clinical; Sent: 06/01/2020 08:20:44 EST Show up: 04/24/2030 09:00:00 EDT Subject: colonoscopy recall Due Date/Time: 05/24/2030 09:00:00 EST Reminder/Recall Patient is due for screening colonoscopy 05/24/2030.[facility] for RehabilitationAmbulatory Clinical Summaryon 24-21-5400Iziiybyasx Clinical Summary {[id number]-y8-0l-d9-48-47-d4-4s-f2-1y-k5-20-84-e1-42}CD:[id number] Health Main CampusGeneral Surgery Office/Clinic Noteon 20-10-5794Intcfzu Surgery Office/Clinic NoteChief Complaint post operative follow up HPI Staff [...] swallowing difficulties, no hearing loss, no ear infection(s),no nose bleeds. Cardiovascular: normal blood pressure, no [...] Salguero Only if needed [address] [place] [address]- Additional Instructions: Problem List/Past Medical [...] Sister. Primary malignant neoplasm of female breast: Mother.[facility] for RehabilitationComment on above:Result Comment: Electronically Signed By: GABRIEL LAUREN, Corby Nick.br\Date and Time Signed: 05/31/20 16:31 ESTPathology Noteon 00-18-9854Ubnvhwpya [id number]#1.00CD:127 [facility] RehabilitationOutside Colonoscopyon 23-42-6779Brbxpbl [id number]#1.00CD:127[facility] for RehabilitationLab Reportson 30-15-5327Vep Reports [id number]#1.00CD:[address] [place], [place] [address]Provider Letter FTMCon 17-17-8279Kqbiyjlo Letter FT Josh Hong, [facility] [place] [address] Re: ELIZA PERERA Date of : 1970 Thank you for your referral of Eliza Perera who was seen on consultation on May 09, 2020, forrectal bleeding, abdominal pain with bowel movements. A colonoscopy is ordered for further evaluation. I will be happy to follow Eliza. Sincerely, Corby Buitrago MD General SurgeryChildren's Hospital for RehabilitationAmbulatory Clinical Summaryon 49-83-3192Ooozuiynpu Clinical Summary {m3-9c-73-p1-5p-94-63-8i-v4-55-i9-00-50-2a-7e-49}CD:[id number]'s Hospital for RehabilitationGeneral Surgery Office/Clinic Noteon 90-90-4026Apmmyvi Surgery Office/Clinic NoteChief Complaint referral for rectal bleeding HPI Staff 49 year old female presents on consultation from Dr. Hong for one time episode of rectal bleeding. Since January, has been experiencing centralized abdominal pain with bowel movements. Has been experiencing right lower quadrant pain for greater than one year, however, experiencing an increase in painsince January. Denies nausea or vomiting. CT abdomen/pelvis completed 02/2019 reported negative. 20# weight loss since January. Long history of intermittent diarrhea alternating with constipation. Neverhad colonoscopy in the past. No known family [...] December and had severe watery diarrhea then; oneepisode of BRBPR with bm in January; now with more severe crampy lower abdominal pain, mid and LLQ, prior to bms; increased gas; pain sharp, doubles her over; relieved after bms; only abdominal operation LS cholecystectomy; no previous colonoscopy; no asa or NSAID use; no SBE prophylaxis; no fmhx ofGI malignancy or IBD. Review of Systems PHQ Score Initial Depression Screen Score: 0 ROS - Provider Constitutional: no fever, no sweats, no weight loss. Eyes: no glasses, no blurred vision, no visual loss. ENMT: no dentures, no hoarseness, no swallowing difficulties, no hearing loss, no ear infection(s),no nose bleeds. Cardiovascular: normal blood pressure, no chest pain, regular heartbeat, no heart murmur. Respiratory: no shortness of breath, no cough, no asthma, no wheezing. Gastrointestinal: no nausea, no vomiting, moderate diarrhea, mild constipation, yes blood in stool,yes change in bowel habits, moderate abdominal pain, [...] available Patient Education Exercise to Stay Healthy, Vtcc-fc-Xqum Problem List/Past Medical History Ongoing Abdominal pain, [...] Sister. Primary malignant neoplasm of female breast: Mother.[facility] for RehabilitationComment on above:Result Comment: Electronically Signed By: Corby BUITRAGO MD\Date and Time Signed: 05/09/20 17:10 ESTPatient Educationon 47-76-4254Tsdrdzz EducationExercise to Stay Healthy Exercise helps you become [...] Document Reviewed: 07/12/2011 ExitCare? Patient Information ?2013 [employer].[facility] for RehabilitationPhysician Referralon 86-80-3194Rrxaaoqvz Referral [id number]#1.00CD:127NormalJ.W. Ruby [facility] Vital Signs Date TimeVital SignValuePerforming IguutbfmhLwlyxwig85-12-6828 08:51-0500Body mass index (BMI) [Ratio]27 kg/m2May Yogi HURD Work Phone: [facility] CenterJikjsurrvp20-08-3912 08:51-0500Body uiopav14.2 kg May Yogi HURD Work Phone: [facility] CenterRucihynrbm57-05-3147 08:51-0500Diastolic blood xuteioec87 mm[Hg]May Yogi PA Work Phone: [phone]-[facility] CenterBznqdqdgjd85-64-7267 08:51-0500Systolic blood gyilvvni835 mm[Hg]May Yogi HURD Work Phone: 1([phone])035-[address] [place], [place] [address]Kzfwgkkoiq38-73-2965 14:00-0400Diastolic blood dssigwyi87 mm[Hg]MD Josh Hong Work Phone: 1(385)[address] [place], [place] 5045204-30-2024 14:00-0400 Heart rate77 /minMD Josh Hong Work Phone: 1(008)[address] [place], [place] 5045204-30-2024 14:00-0400 Respiratory rate16 /minMD Josh Hong Work Phone: 1(816)[address] [place], [place] 5045204-30-2024 14:00-0400 SaO2% (BldA) [Mass fraction]97 %MD Josh Hong Work Phone: 1(415)[address] [place], [place] 5045204-30-2024 14:00-0400 Systolic blood tmealgmg691 mm[Hg]MD Josh Hong Work Phone: 1(371)[address] [place], [place] 5045204-30-2024 10:52-0400 Body dvmsuz282.18 cmMD Josh Hong Work Phone: 1(417)[address] [place], [place] 5045204-30-2024 10:52-0400 Body ejtfbo18.37 kgMD Josh Hong Work Phone: 1(145)[address] [place], [place] 50[address]204-12-2024 09:50-0400 Body ywqhxy562.18 cmMD Josh Hong Work Phone: [phone]04-12-2024 09:50-0400 Body mass index (BMI) [Ratio]28 kg/m2MD Josh Hong Work Phone: [facility]04-12-2024 09:50-0400 Body qcluxf61.19 kgMD Josh Hong Work Phone: 1(078)258-[address] [place], [place] 613[address]4-12-2024 09:50-0400 Diastolic blood nweizwgc68 mm[Hg]MD Josh Hong Work Phone: [facility]04-12-2024 09:50-0400 Heart rate74 /minMD Josh Hong Work Phone: 1([phone])752-[address] [place], [place] 613[address]4-12-2024 09:50-0400 Systolic blood gxebjcxj991 mm[Hg]MD Josh Hong Work Phone: 1([phone] [place] [address] Encounters Encounter DateEncounter TypeCare ProviderFacilityStart: 05-28-2024 End: 11-17-3780Sshhylrqh Result EncounterCorey Shirley DO Work Phone: [facility] External Department UnsolicitedStart: 05-28-2024 End: 32-70-4227Eiytdssih Result EncounterCorey Shirley DO Work Phone: [facility] External Department UnsolicitedStart: 05-27-2024 End: 53-15-9652Qaecjqere Result EncounterCorey Shirley DO Work Phone: [facility] External Department UnsolicitedStart: 05-27-2024 End: 95-38-2753Zsxgwzkhj Result EncounterCorey Shirley DO Work Phone: NO[facility] External Department UnsolicitedStart: 05-17-2024 End: 66-23-8838Zfelku Jacklyn HURD Work Phone: NOOF BCP OBStart: 05-17-2024 End: 54-29-0479Ccuxsg flowsCaro HURD Work Phone: NOMS BCP OBStart: 05-17-2024 End: 66-08-2383Ttbikcfms Result EncounterMay HURD Work Phone: [facility] External Department UnsolicitedStart: 05-17-2024 End: 85-38-2485gguuvjvybcNHL RAMEYNot AvailableStart: 05-17-2024 End: 95-30-5682Wujkmzn encounter procedureMay HURD Work Phone: [facility] Work Phone: Start: 05-17-2024 End: 21-87-9782Jgltdtfa preventive med est patient 40-64yrsAmy Yogi HURD Work Phone: [facility] BCP OBComment on above:Well woman exam with routine gynecological exam; Breast cancer screening by mammogram; Postmenopausal state; Other fatigue; Left ovarian cystStart: 04-16-2024 End: 01-68-7444Mjsrrgfgh encounterCorey Shirley DO Work Phone: [facility] BCP OBStart: 04-14-2024 End: 07-95-7107Wyxsaytyz Result EncounterCorey Shirley DO Work Phone: [facility] External Department UnsolicitedStart: 04-14-2024 End: 61-73-7488Uovssfvvu Result EncounterCorey Shirley DO Work Phone: [facility] External Department UnsolicitedStart: 01-08-2024 End: 34-10-8281kwhnuhcuhkPRM RAMEYNot AvailableStart: 12-26-2023 End: 22-25-0786hofbwyeobwCE Josh Mcdonough Hoy Work Phone: [facility] Work Phone: Start: 12-26-2023 End: 48-43-6770Ycqjudep ReferredMD Josh Hoy Work Phone: [facility]-LAB Path Spec [place] HospStart: 12-16-2023 End: 44-71-6974Zhaixlvgy Result EncounterCorey Shirley DO Work Phone: [facility] External Department UnsolicitedStart: 12-16-2023 End: 40-68-6575Gugnvdclf Result EncounterCorey Shirley DO Work Phone: [facility] External Department UnsolicitedStart: 12-01-2023 End: 90-32-0678siuhoyttwrULRVL FAZIONot AvailableStart: 11-06-2023 End: 60-89-9839xwemvbrnrbFFGXJ FAZIONot AvailableStart: 40-01-4897Rnb-patient / Non-visitMD Josh Hong Work Phone: [facility] Work Phone: Start: 10-21-2023 End: 41-37-5272Vtpoqbiiz to [facility] day surgery centerMD Josh Hong Work Phone: [facility] Work Phone: Start: 10-21-2023 End: 04-40-1473hgbhlgjhblIU Josh Hong Work Phone: [facility] Work Phone: Start: 10-03-2023 End: 17-41-0123Vbtbfmu encounter procedureMD Josh Hong Work Phone: [facility] Work Phone: Start: 10-30-2022 End: 25-02-0788vfrpiddtmnAV JOSH HONG .Facility:V5Kojzp: 07-04-2022 End: 96-85-9664gocinabmulQL JAVID SHIRLEY .Facility:X4Vshuo: 57-77-0704Oisdknotp for preprocedural laboratory examinationDR JAVID SHIRLEY .[facility] Start: 06-20-2022 End: 83-18-1911bjwnlktsbvBU JAVID SHIRLEY .Facility:P4Eyafw: 05-18-7855Gmipouxfq for preprocedural cardiovascular examinationDR JAVID SHIRLEY .[facility] End: 95-15-3392wcvlgwtputPB JAVID SHIRLEY .Facility:X9Aswyf: 06-19-2022 End: 60-67-4333Opoqrlhem for preprocedural laboratory examinationDR JAVID SHIRLEY .Facility:A5Fkuaz: 06-11-2022 End: 71-49-1403sclrrcudpyKO JAVID SHIRLEY .Facility:J6Dblhm: 06-11-2022 End: 52-15-7590Tyhqydore for preprocedural cardiovascular examinationDR JAVID SHIRLEY .Facility:G4Zketv: 05-28-2022 End: 63-83-6866njvtlsfasyPZMMZYEX EBERLYFacility:K3Qcews: 05-21-2022 End: 74-31-6856badccchruzRMMBBFLG EBERLYFacility:R7Upsax: 05-14-2022 End: 97-30-1439pllslaxpxxOU JAVID SHIRLEY .Facility:M2Uwdmz: 05-09-2022 End: 41-02-9552djuquozagiTG ROSSANA Teague WESTFacility:Z7Lchzd: 05-08-2022 End: 12-25-9344upvelposovBD JAVID SHIRLEY .Facility:Q4Sgrtp: 05-07-2022 End: 04-50-2622ntqduabhoxZU JAVID SHIRLEY .Facility:H1 Procedures DateProcedureProcedure DetailPerforming ClinicianStart: 16-82-9056NY DEXA AXIAL SKELETONCorey Shirley DO Work Phone: Start: 54-91-2974XO TOMOSYNTHESIS SCREENING BICorey Shirley DO Work Phone: Start: 23-59-7340SxplidwjevdZohrr Shirley DO Work Phone: Start: 78-97-1624KJI THYROID STIM HORMONEAmy Yogi HURD Work Phone: Start: 04-92-5921Lohesvcqfgn observation [Identifier] in Cervix by Cyto stainCorey Shirley DO Work Phone: Start: 94-94-6077GF PELVIS W/ TRANSVAGINALCorey Shirley DO Work Phone: Start: 37-04-8740OXX 12-LEADCorey Shirley DO Work Phone: Start: 07-73-0264CfxexfzhvkqolxamgjvhznonpqPV Josh Hong Work Phone: Start: 02-06-1127WqpnmbjjtcdNum Yogi HURD Work Phone: Start: 93-93-9330Rqekwpyxobm observation [Identifier] in Cervix by Cyto stainMay HURD Work Phone: Start: 86-26-5352Hhsu cerv/vag auto thin layer prep mnl screenCorey Shirley DO Work Phone: Start: 18-66-0921VknwimmnepvPjk Yogi HURD Work Phone: Plan of Treatment DateCare ActivityDetailAuthorStart: 13-65-6802Cbvnqswfa for malignant neoplasm of colonNOMS HealthcareStart: 89-89-8385Cztyrnftw for malignant neoplasm of cervixNOMS HealthcareStart: 18-82-6245Oyvkkkwhe for malignant neoplasm of cervix [facility] HealthcareStart: 13-31-0680Ygwyyhybq for malignant neoplasm of breast MammogramNOMS HealthcareStart: 05-23-2025 End: 21-18-8394Vzjytln encounter procedureNOMS BCP OBStart: 22-33-5320Endgsulnq for malignant neoplasm of breastMammogramNOMS HealthcareStart: 05-17-2024 End: 18-41-6794URI W Auto Differential panel - BloodCBC and differential Lab Routine Other fatigue Expected: 05/17/2024 (Approximate), Expires: 05/17/2025 NOMS HealthcareComment on above:Expected: 05/17/2024 (Approximate), Expires: 05/17/2025Start: 05-17-2024 End: 82-12-1878YCJ Skeletal system Views for bone densityDEXA bone density Imaging Routine Postmenopausal state Expected: 05/17/2024 (Approximate), Expires:05/17/2025NOMS HealthcareComment on above:Expected: 05/17/2024 (Approximate), Expires: 05/17/2025Start: 05-17-2024 End: 22-87-8922TF Breast - bilateral ScreeningBilateral screening mammogram Imaging Routine Breast cancer screening by mammogram Expected: 05/17/2024, Expires: 07/17/2025[facility] Work Phone: comment on above:Expected: 05/17/2024, Expires: 07/17/2025Start: 05-17-2024 End: 25-27-9011DT for pregnancyUS PELVIS-TRANSVAG IF INDICATED Imaging Routine Left ovarian cyst Expected: 05/17/2024 (Approximate), Expires: 05/17/2025NOWV HealthcareComment on above:Expected: 05/17/2024 (Approximate), Expires: 05/17/2025Start: 32-85-5822Wvugkcirb vaccinationInfluenza Vaccine (#1)[facility] HealthcareStart: 60-42-9422CkkxlbvcsGrant Hospitaltart: 1970 Screening for malignant neoplasm of colonTIMPANOG[facility] HealthcarePatient Education Gastritis Stomach polypsC[facility] Clinic [facility] Work Phone: THIN PREP TIS PAP AND HR HPV DNATHIN PREP TIS PAP AND HR HPV DNA Pathology and Cytology Routine Well woman exam with routine gynecol ogical exam Ordered: 05/17/2024[facility] HealthcareComment on above:Ordered: 05/17/2024Thyrotropin [Units/volume] in Serum or PlasmaTSH Lab Routine Other fatigue Ordered: 05/17/2024[facility] HealthcareComment on above:Ordered: 05/17/2024 Immunizations Immunization DateImmunizationNotesCare EwgwbsocDicxbzgd08-69-3920xopccbyup virus vaccine, unspecified formulationMay HURD Work Phone: [facility] Payers DatePayer CategoryPayerPolicy [id number] Health InsuranceMEDICAL MUTUAL [id number] 2.16840.1.872255.3.57[id number] 2.840.1.882649.3.57[id number] 2.840.1.709903.3.57[id number] 2.840.1.660750.3.57[id number] 2.840.1.556021.3.57[id number] 2.0.1.999841.3.57[id number] 2.840.1.876259.3.57[id number] 2.0.1.368708.3.57[id number] 2.840.1.031666.3.57[id number] 2.0.1.859057.3.57[id number] 2.840.1.854345.3.57[id number] 2.840.1.285001.3.57[id number] 2.840.1.388343.3.579.2.[id number] 2.840.1.156212.3.57[id number] 2..840.1.887405.3.57[id number] 2..840.1.4[id number] 2.16.840.1.224396.3.579.2.531 Social History DateTypeDetailFacilityStart: 05-12-2023 End: 86-64-1318Sflnzjv smoking status NHISNever smoked tobacco (finding) [facility]tart: 54-38-6029Uqu Assigned At BirthFeSouthview Medical Centertart: 01-08-2024 End: 13-39-5189Ckkrrntxc beverage intakeEx-drinker (finding)[facility] Start: 05-12-2023 End: 10-29-6874Zljqszy of Social functionNOWV HealthcareStart: 05-12-2023 End: 68-40-6135Rqinkur Use Disorder Identification Test - Consumption [AUDIT-C] [facility] HealthcareHow often to you have a drink containing alcohol?Monthly or less [facility] HealthcareHow many standard drinks containing alcohol do you have on a typical day?1 or 2NOMS HealthcareHow often do you have 6 or more drinks on 1 occasion?NeverNOMS HealthcareStart: 34-41-0592Easgcxa CommentCaffeine intake: noneNOWV HealthcareStart: 22-93-4396Qwk assigned at birthNot on fileNOWV HealthcareStart: 70-17-0013AgjSsqytaVQNE Healthcare Goals DatePatient GoalDesired Activity/State History of Present illness Narrative 05-17-2024 Note Date & HiugQelkMecnfize08-52-6975 History of Present illness Narrative* VANNESSA Sheffield - 05/17/2024 8:30 AM EST Reason for Appointment: Patient ID: [...] nursing note reviewed. Exam conducted with a marble installation helper present. Vitals: Estimated body mass index is [...] behalf of: VANNESSA Sheffield documented in this [facility] Telephone encounter Note 04-16-2024 Note Date & BkknOqyuDtxgsktt15-60-5686 Telephone encounter Note* Telephone Encounter - Inez Harper - 04/16/2024 8:39 AM EDT Patient had a US done on 04/14/2024, she hasn't heard any results yet. She wondered if Dr Watson hadreviewed yet as she is eager to learn of results. [facility] Healthcare Note 04-16-2024 Note Date & IefsRwhpQttgqxwr09-33-7867 Miscellaneous Notes* Telephone Encounter - Inez Harper - 04/16/2024 8:39 AM EDT Patient had a US done on 04/14/2024, she hasn't heard any results yet. She wondered if Dr Watson hadreviewed yet as she is eager to learn of results. documented in this [facility] Procedure note 10-21-2023 Note Date & KrjzOpvuMqfpclfm77-25-2115 [facility] 10-21-2023 Note Date & EozsDexoWgqfywut57-89-6079 [facility] noteUpper [facility] Clinical Note 06-20-2022 Note Date & WrjqEhofEzmrcsoh84-75-7551 NoteOPERATIVE NOTE OPERATION DATE: 06/20/2022 PROCEDURE: vNOTES hysterectomy with cystoscopy and bilateral salpingectomy. PREOPERATIVE DIAGNOSIS: Pelvic pressure, menorrhagia, dysmenorrhea, dyspareunia. POSTOPERATIVE DIAGNOSIS: Pelvic pressure, menorrhagia, dysmenorrhea, dyspareunia. ANESTHESIA: General. SURGEON: Javid Watson M.D. WALLPAPER CONSULTANT: PIYUSH Howell URINE OUTPUT: Yellow and clear. [...] excellent condition. Sponge, lap, needle counts correct x2.[facility] Evaluation note Note Date & TypeNoteFacilityEvaluation note* Diagnosis Onset Date Resolution Status Abdominal pain acuteBloatingacuteGERD (gastroesophageal reflux disease)acuteMucus in stoolEast [facility] Work Phone: Evaluation note Note Date & TypeNoteFacilityEvaluation note* Diagnosis Well woman exam with routine gynecological exam Routine gynecological examination Breast cancer screening by mammogram Postmenopausal state Asymptomatic postmenopausal status (age-related) (natural) Other fatigue Left ovarian cyst Other and unspecified ovarian cyst documented in this encounter [facility] History and physical note Note Date & TypeNoteFacilityHistory and physical note Author Elizabeth Perea [facility] October 21, 2023 12:42pmNote Date/TimeApril 2023 12:42pm[place] [address] Gastroenterology H&P Signed Patient: Eliza Perera MR#: [id number] : 1970 Acct:[id number] Age/Sex: 52 / F Adm Date: 4 Loc: Room: Type: [facility] Attending Dr: Elizabeth Perea DO Copies to: DO Josh Barrera MD~ Date of Service: 10/21/2023 HISTORY & PHYSICAL: Patient's history with special attention to the cardiovascular, pulmonary systems and the current problem was reviewed with the patient immediately prior to the procedure. Present medications and doses reviewed in the EMR. Allergies and pertinent laboratory tests were also re viewedat this time in the EMR. The physical [...] Elizabeth Perea DO> 10/21/23 1242 [facility] Work Phone: Summary Purpose Family History Relationship Condition Age at Onset Recorded Date/T kalin Not Specified Deep vein thrombosis (DVT) Unknown Malignant neoplasmUnknownsisterHyperthyroidismUnknownSupraventricular tachycardiaUnknownfatherVitiligoUnknown Relationship Condition Age at Onset Recorded Date/T kalin mother Deep vein thrombosis (DVT) Unknown Malignant neoplasmUnknownsisterHyperthyroidismUnknownSupraventricular tachycardiaUnknownfatherVitiligoUnknown Advance Directives Advance Directive Response Recorded Date/ Time Advance Directives No September 14, 2 024 3:21pm Chief Complaint and Reason for Visit Chief Complaint acid reflux, bloatin g, ab pain, mucus in stool and pain, mucus in stool, gerd, bloating and pain, mucus in stool, gerd, bloatingReason for VisitAbdominal pain Bloating GERD (gastroesophageal reflux disease) Mucus in stool Chief Complaint acid reflux, bloatin g, ab pain, mucus in stool and pain, mucus in stool, gerd, bloating and pain, mucus in stool, gerd, bloating UnknownReason for VisitAbdominal pain Bloating GERD (gastroesophageal reflux disease) Mucus in stool Additional Source Comments INFORMATION SOURCE (unrecogn ized section and content) DATE CREATED AUTHOR 06/15/2020 [facility] DATE CREATED AUTHOR AUTHOR'S ORGANIZ ATION 11/03/2022 [facility] DATE CREATED AUTHOR AUTHOR'S ORGANIZ ATION 01/05/2024 [facility] DATE CREATED AUTHOR AUTHOR'S ORGANIZ ATION 05/19/2024 [facility] EPIC Care Teams (unrecognized sec tion and content) Team Status: Active Member Role Status Dates Josh Hong MD Primary Care Provider Active Team Status: Inactive Member Role Status Dates Elizabeth Perea DO Attending Provider Active St art: October 03, 2023 End: October 02Latrice Dunn Care ProviderActiveStart: October 03, 2023 End: October 03, 2023 Team Status: Inactive Member Role Status Dates Josh Hong MD Primary Care Provider Active Start: October 21, 2023 End: October 20zac Perea DOAttending ProviderActiveStart: October 21, 2023 End: October 21, 2023 Team Status: Active Member Role Status Dates Josh Hong MD Primary Care Provider Active Start: October 21, 2023 Elizabeth Perea , DOAttending Provider, Other ProviderActiveStart: October 21, 2023 Team Status: Inactive Member Role Status Dates Josh Hong MD Primary Care Provider Active Start: December 26, 2023 End: December 25orey Shirley , DOAttending ProviderActiveStart: December 26, 2023 End: December 26, 2023Team MemberRelationshipSpecialtyStart DateEnd Date Josh Hong MD [address] [facility] [place] [address] [address] - [facility] Pczrbcru46/22/23Te MemberRelationshipSpecialtyStart Date End Date Josh Hong MD [address] [facility] [place] [address] PCP - [facility]05/14/23Te MemberRelationshipSpecialtyStart Date End Date Josh Hong MD [address] [facility] [place] [address] [facility] - [facility] Nwmvbtsg47/22/23Team MemberRelationshipSpecialtyStart Date End Date Josh Hong MD [address] [facility] [place] [address] [facility] Neuezuwk66/22/23Team MemberRelationshipSpecialtyStart Date End Date Josh Hong MD PCP - GeneralFamily Ladjakse84/22/23 May Jorge PA [address] [place] [address], [place] [address] PCP - [facility] [employer] Reason for Visit (unrecogniz ed section and content) ReasonCommentsWell Women Visit FOR RECORDS PERTAINING TO PATIENTS [...] BE BASED ON THE PRIMARY CLINICAL RECORDS. [facility] [employer] [facility]. provides no warranty or guarantee of the accuracy or completeness of information in this document.
[2025-05-25 20:09] LABS: Age Gdln ACOG Testing Note (.); IGP, Aptima HPV, rfx 16/18,45 Note (.)
== END 2025-05-23 14:54 | disposition home or self-care (01) ==
LOC: LAB 14:53
PROVIDERS: PCP Family Medicine; Visit Provider Physician Assistant
DX: Z01.419 Encounter for gynecological examination (general) (routine) without abnormal findings (principal)
CPT/HCPCS: 88175

== ENCOUNTER 2025-05-30 10:52 | Outpatient (OUT) | payer OTHER, SELFPAY ==
--- NOTE | 2025-05-30 10:55 | MM_ITS ---
Patient Name: RENETTA COELLO MR#: [id number] : 1970 Exam Date: 05/30/2025 Ordering Doctor: DR JAVID SPRAGUE . RADIOLOGY REPORT PROCEDURE: MM TOMOSYNTHESIS SCREENING BI COMPARISON: MM TOMOSYNTHESIS SCREENING BI, 05/27/2024. MM TOMOSYNTHESIS SCREENING BI, 05/19/2023. MG MAMM SCREEN 3D JENNIFER CAD, 05/14/2022. MG MAMM JENNIFER SCRN W CAD DIG, 10/01/2013. INDICATIONS: Screening Calculator Name NCI Breast Cancer Risk Assessment Tool 5 Year Breast Cancer Risk 3.20% Lifetime Breast Cancer Risk 20.60% Personal Breast Cancer No Personal Ovarian Cancer No Treatments None Family Cancers Mother with breast cancer at age 70; Sister with melanoma cancer at age ~20. LOCATION: [facility] BREAST COMPOSITION: The breasts are heterogeneously dense, which may obscure small masses. FINDINGS: RIGHT BREAST: No significant suspicious finding. LEFT BREAST: No significant suspicious finding. Similar biopsy clips are noted on the left. DIAGNOSTIC CATEGORY 2--BENIGN FINDING. NO CHANGE FROM COMPARISON. RECOMMENDATIONS: ROUTINE MAMMOGRAM AND CLINICAL EVALUATION IN 12 MONTHS. Dictated by: Carmelo Velazquez MD on 05/30/2025 at 15:14 Approved by: Carmelo Velazquez MD on 05/30/2025 at 15:31
--- OUTSIDE RECORDS SUMMARY | 2025-05-30 10:55 | XMS_ITS | CCD ---
Author Organization [facility] Care Team Providers Care Rigging Slinger Name Role Phone SHIRLEY ., DR HUA [...] Unavailable SHIRLEY ., DR HUA Admitting Unavailable GLEN SPEY, DR ROSSANA Teague Consulting Unavailable HOY ., [...] Unavailable DIANE ., DR MORENO Admitting Unavailable GLEN SPEY, DR ROSSANA Teague Consulting Unavailable MD Josh Hong Primary Care Provider [phone] Ly, DO Elizabeth Perez Attending Provider [phone] DO Javid Watson Attending Provider [phone] Ly, Elizabeth Perez Admitting Unavailable Brit, Elizabeth Perez Attending Unavailable Josh Hong Primary Care Unavailable Javid Watson Admitting Unavailable Javid Watson Attending Unavailable Josh Hong Primary Care Unavailable Josh Hong MD Primary Care Provider [phone] JAVID WATSON Attending Unavailable JAVID WATSON Attending Unavailable MAY JORGE Attending Unavailable MAY JORGE Attending Unavailable Josh Hong MD Primary Care Provider [phone] May Molina Unavailable Allergies Allergy ClassificationReported Allergen(s)Allergy TypeDate of OnsetReaction(s) Facility (2 sources)FluconazoleDrug Yhnkngs51-59-7113[facility] Repository (1 source)levoFLOXacinDrug AllergyThe [facility] Repository (1 source)levoFLOXacinDrug Wamrckj29-13-8984UstripkepChillic[facility] Rep[facility] (9 sources)FluconazolePropensity to adverse uesuregld79-08-6355[facility] Work Phone: (9 sources)levoFLOXacinDrug Annxreh75-87-3476IQJC [facility] Medications Current Medications MedicationDrug Class(es)DatesSig (Normalized)Sig (Original)Black elderberry (2 sources)Start: 55-74-6028aaiy 2000 mg by mouth twice dailyBlack elderberry Active 2000 MG PO Twice daily October 08, 2023 12:00amcholecalciferol 0.05 mg oral capsule (11 sources)Vitamin DStart: 31-47-2893uaut 25 ug by mouth once daily Cholecalciferol (Vitamin D3) Active 25 MCG PO Daily October 03, 2023 12:00am cholecalciferol (Vitamin D-3) 50 MCG (1999 UT) capsule Vitamin D (Cholecalciferol) Oobcjw90 hr desvenlafaxine succinate 100 mg extended release oral tablet (11 sources)Serotonin and Norepinephrine Reuptake InhibitorStart: 13-81-4095bwxp 1 tablet by mouth twice daily, then take 1 tablet by mouth every twenty-four hoursDesvenlafaxine Succinate (Pristiq) 100 mg tablet extended release 24 hr Active 100 MG PO Twice daily October 03, 2023 12:00amStart: 84-10-0986ayga 1 tablet by mouth every twenty-four hours in the morningdesvenlafaxine (Pristiq) 100 MG 24 hr tablet Take 100 mg by mouth in the morning. 05/05/2023 Active dexamethasone 6 mg oral tablet (9 sources)CorticosteroidStart: 06-41-2187mvoj 1 tablet by mouth in the morning dexAMETHasone (Decadron) 6 MG tablet Take 6 mg by mouth in the morning. 05/21/2022 Activediclofenac sodium 75 mg delayed release oral tablet (11 sources)Nonsteroidal Anti-inflammatory DrugStart: 29-42-3310ippu 1 tablet by mouth in the morningdiclofenac (Voltaren) 75 MG EC tablet Take 75 mg by mouth in the morning and 75 mg before bedtime. 10/13/2023 ActiveStart: 37-87-3891navp 75 mg by mouth twice dailyDiclofenac Potassium Active 75 MG PO Twice daily October 03, 2023 12:00amferrous sulfate 325 mg oral tablet (9 sources)ferrous sulfate 325 (65 Fe) MG tablet 1 (one) time each day at the same time. Activefolic acid 0.4 mg / vitamin b12 0.5 mg oral tablet (2 sources)Vitamin G59Sljoq: 34-81-1999srwu 2 tablets by mouth once dailyVitamin R48-Jdydk Acid Active 2 TAB PO Daily October 08, 2023 12:00am administer with a mealgabapentin 300 mg oral capsule (11 sources)Anti-epileptic AgentStart: 67-60-7958uwuo 300 mg by mouth three times dailyGabapentin Active 300 MG PO Three times daily October 03, 2023 12:00amStart: 33-17-6987admwoijklq (Neurontin) 300 MG capsule Take by mouth every 8 (eight) hours. 05/06/2023 Activeloratadine 5 mg chewable tablet (9 sources)loratadine (Claritin) 5 MG chewable tablet Claritin ActivemetFORMIN hydrochloride 500 mg oral tablet (5 sources)BiguanideStart: 48-03-8208fcne 1 tablet by mouth in the morning metFORMIN (Glucophage) 500 MG tablet Indications: Insulin resistance , PCOS (polycystic ovarian syndrome) Take 1 tablet (500 mg) by mouth in the morning and 1 tablet (500 mg) in the evening. Take with meals. 60 tablet 11 11/06/2023 ActiveOpzelura 1.5 % cream (9 sources)Start: 14-14-6518Kvznouha 1.5 % cream 10/20/2023 Activepantoprazole 40 mg delayed release oral tablet (11 sources)Proton Pump InhibitorStart: 96-95-4135jmiq 1 tablet by mouth in the morningpantoprazole (ProtoNix) 40 MG EC tablet Take 40 mg by mouth in the morning and 40 mg before bedtime. 05/05/2023 Activerimegepant 75 mg disintegrating oral tablet (13 sources)Start: 59-01-3438Qjjgfe 75 MG tablet dispersible take 1 tablet by mouth AT ONSET OF MIGRAINE 11/03/2023 ActiveStart: 65-77-5325tmbc 1 tablet by mouth every other dayRimegepant (Nurtec Odt) 75 mg tablet,disintegrating Active 75 MG PO Q2D October 21, 2023 12:00am Completed/Discontinued Medications MedicationDrug Class(es)DatesSig (Normalized)Sig (Original)biotin 10 mg oral capsule (2 sources)Start: 10-03-2023 End: 82-26-4769Rubtnb Discontinued MCG PO October 03, 2023 12:00am October 08, 2023 12:29pmomeprazole 40 mg delayed release oral capsule (2 sources)Proton Pump InhibitorStart: 10-03-2023 End: 13-35-6206pbfn 40 mg by mouth twice dailyOmeprazole Discontinued 40 MG PO Twice daily October 03, 2023 12:00am October 08, 2023 12:30pm Problems Active Problems Problem ClassificationProblemDateDocumented DateEpisodic/ChronicAbdominal pain (6 sources)Pelvic and perineal pain; Translations: [Abdominal pain]Onset: 513324-28-6241WiuwocguOhajfqqwdb associated with dizziness or vertigo (2 sources)Vertigo; Translations: [Dizziness and giddiness]54-00-1549Mrtgvdvm Esophageal disorders (4 sources)Gastroesophageal reflux disease; Translations: [Gastro-esophageal reflux disease without esophagitis]21-90-0367KqirvsjJpsglzb and fatigue (2 sources)Fatigue; Translations: [Other fatigue]28-21-6066NlknltxrTcqehbmcqn disorders (1 source)Menopausal and female climacteric states; Translations: [MENOPAUSAL FE CLIMACTERIC STATES]Onset: 68-72-7270JcdlpwlMnmajfkov disorders (10 sources)Excessive and frequent menstruation with regular cycle; Translations: [Dysmenorrhea, unspecified]Onset: 45-15-4643TspacmmWqqij diseases of veins and lymphatics (4 sources)Venous insufficiency (chronic) (peripheral); Translations: [VENOUS INSUFF CHRONIC PERIPHERAL]Onset: 01-51-9863LacqmcmyCapfw endocrine disorders (1 source)Polycystic ovarian syndrome; Translations: [POLYCYSTIC OVARIAN SYNDROME]Onset: 94-91-3873KbelzcvJeyuu gastrointestinal disorders (2 sources)Abdominal bloating; Translations: [Abdominal distension (gaseous)] 56-88-4153WiuhqqryZhvrg gastrointestinal disorders (2 sources)Mucus in stool; Translations: [Other fecal abnormalities]10-21-2023 EpisodicOther gastrointestinal disorders (2 sources)Abdominal distension (gaseous); Translations: [Flatulence, eructation, and gas pain]12-62-4903UkxyvmqmMeyot gastrointestinal disorders (2 sources)Other fecal abnormalities; Translations: [Nonspecific abnormal findings in stool contents]13-82-5986UyjpgjpqXoswk screening for suspected conditions (not mental disorders or infectious disease) (10 sources)Encounter for screening mammogram for malignant neoplasm of breast; Translations: [Encounter for screening for malignant neoplasm of cervix]Onset: 96-00-1118ZdglrqesYmllh skin disorders (2 sources)Vitiligo; Translations: [Vitiligo]48-86-8160GkgehrwnQxqdijf cyst (2 sources)Cyst of left ovary; Translations: [Unspecified ovarian cyst, left side]98-51-6600AyqgwmrwYwpnocqb of female genital organs (1 source)Uterovaginal prolapse, unspecified; Translations: [UTEROVAGINAL PROLAPSE UNSPECIFIED]Onset: 75-34-6389JnyjhisEbcevxps codes; unclassified (2 sources)Postmenopausal state; Translations: [Asymptomatic menopausal state] 28-79-6474UptvmhrdPwakxwnxpoiy (1 source)PERSONAL HISTORY OF COVID-19; Translations: [PERSONAL HISTORY OF COVID-19]Onset: 84-00-9414Irczvxzhhixb (2 sources)CONTACT W/AND (SUSP) EXPOS COVID-19; Translations: [CONTACT W/AND (SUSP) EXPOS COVID-19]Onset: 56-90-6118Lclcs infection (1 source)COVID-19; Translations: [COVID-19]Onset: 06-01-2022 Past or Other Problems Problem ClassificationProblemDateDocumented DateEpisodic/ChronicImmunizations and screening for infectious disease (1 source)Encounter for screening for human papillomavirus (HPV); Translations: [ENC SCREENING HUMAN PAPILLOMAVIRUS]Onset: 53-32-6128ZlecuqgtHimhmcgvfidf diseases of female pelvic organs (1 source)Inflammatory disease of cervix uteri; Translations: [INFLAMMATORY DISEASE CERVIX UTERI]Onset: 23-68-9176YzjowyjmQostc aftercare (1 source)Other assisted (current) drug therapy; Translations: [OTH ACIDITY TESTER CURRENT DRUG THERAPY]Onset: 59-29-4495FrrlyriaWeknv aftercare (1 source)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; Translations: [ACIDITY TESTER USE ORAL HYPOGLYCEMIC DX]Onset: 49-39-6184ZmvrjgwcIrmwv female genital disorders (1 source)Polyp of cervix uteri; Translations: [POLYP OF CERVIX UTERI]Onset: 47-71-0454FaepdgubKappy hematologic conditions (4 sources)Personal history of diseases of the blood and blood-forming organs and certain disorders involving the immune mechanism; Translations: [PERS HX DZ BLD/BLD-FRM ORG IMMN MCH]Onset: 40-63-3154ZcefvogvHpejw skin disorders (1 source)Vitiligo; Translations: [VITILIGO]Onset: 10-86-7983MfuvywxbMpwqgjgow; thrombophlebitis and thromboembolism (1 source)Personal history of other venous thrombosis and embolism; Translations: [PERS HX OTH VENOUS THROMBOSIS AND EMBO]Onset: 86-57-8040Nepiqugw Residual codes; unclassified (1 source)Family history of malignant neoplasm of breast; Translations: [FAMILY HX MALIG NEOPLASM OF BREAST]Onset: 28-74-6081OhmrbrotNhjhztqk codes; unclassified (1 source)Acquired absence of other specified parts of digestive tract; Translations: [ACQ ABSENCE OTH PART DIGESTV TRACT]Onset: 53-32-2821Wzwilebc Residual codes; unclassified (1 source)Asymptomatic menopausal state; Translations: [ASYMPTOMATIC MENOPAUSAL STATE]Onset: 43-59-7163VmtupoqmVwazwxrx codes; unclassified (1 source)Family history of malignant neoplasm of other organs or systems; Translations: [FAM HX MALIG NEOPLASM OTH ORGN/SYS]Onset: 43-62-4150Vlvrdylp Unclassified (1 source)CONTACT W/AND (SUSP) EXPOS COVID-19; Translations: [CONTACT W/AND (SUSP) EXPOS COVID-19]Onset: 64-40-3784Furmbve tract infections (1 source)Urinary tract infection, site not specified; Translations: [UTI SITE NOT SPECIFIED]Onset: 03-51-5322Vwxwmawk Results Test NameValueInterpretationReference RangeFacilityXR DEXA AXIAL SKELETONon 18-59-6871[place]dw[place] [address] XRay Report Signed Patient: ELIZA PERERA MR#: [id number] : 1970 Acct:[id number] Age/Sex: 53 / F ADM Date: 05/27/24 Loc: MAMMO Attending Dr: Javid Watson D.O. Ordering Physician: Javid Watson D.O. Date of Service: 05/27/24 Procedure(s): XR DEXA axial skeleton Accession Number(s): [id number] cc: Javid Watson D.O.; Josh Hong M.D. [address] [address] Patient Name: ELIZA PERERA MRN: [id number] date: 1970 Sex: F Assigned Patient Location: [facility] Current Patient Location: Accession/Order Number: [id number] Exam Date: 05/27/2024 11:00 Report Date: 05/28/2024 [...] prevention and treatment of osteoporosis. Osteoporos Int. 2021;33(10):7083-2307. doi: 10.1007/v23793-650-99513-w. Epub 2021Oct 18. Erratum in: Osteoporos Int. 2021Jan 17;: PMID: 82448814; PMCID: [id number]. Electronically authenticated by: CHEIKH RUSSO Date: 05/28/2024 05:08 Dictated By: Cheikh Russo M.D. Signed By: 05/28/24510 DD/ 0508 TD/TT: Quarry Supervisor Open Pit:TBHRadiology, Radiologist, - 05/28/2024 [place] [address] XRay Report Signed Patient: ELIZA PERERA MR#: [id number] : 1970 Acct:[id number] Age/Sex: 53 / F ADM Date: 05/27/24 Loc: MAMMO Attending Dr: Javid Watson D.O. Ordering Physician: Javid Watson D.O. Date of Service: 05/27/24 Procedure(s): XR DEXA axial skeleton Accession Number(s): [id number] cc: Javid Watson D.O.; Josh Hong M.D. The [address] [address] Patient Name: ELIZA PERERA MRN: [id number] date: 1970 Sex: F Assigned Patient Location: [facility] Current Patient Location: Accession/Order Number: [id number] Exam Date: 05/27/2024 11:00 Report Date: 05/28/2024 [...] prevention and treatment of osteoporosis. Osteoporos Int. 2021;33(10):0991-8657. doi: 10.1007/d09469-537-86524-s. Epub 2021Oct 18. Erratum in: Osteoporos Int. 2021Jan 17;: PMID: 43345679; PMCID: [id number]. Electronically authenticated by: CHEIKH RUSSO Date: 05/28/2024 05:08 Dictated By: Cheikh Russo M.D. Signed By: 05/28/24510 DD/ 0508 TD/TT: Quarry Supervisor Open Pit: [facility] HOSPITALVandana HealthcareRadiology Study observation (narrative)[facility] HealthcareXR DEXA AXIAL SKELETONOrdered By: Radiologist Radiology on 60-90-2971XWYW Healthcare Work Phone: mm TOMOSYNTHESIS SCREENING BIon 22-97-3163Thp[place] [address] Mammography Report Signed Patient: ELIZA PERERA MR#: [id number] : 1970 Acct:[id number] Age/Sex: 53 / F ADM Date: 05/27/24 Loc: MAMMO Attending Dr: Javid Watson D.O. Ordering Physician: Javid Watson D.O. Results: Date of Service: 05/27/24 Follow Up: Procedure(s): MM tomosynthesis screening BI Accession Number(s): [id number] cc: Javid Watson D.O.; Josh Hong M.D. Patient Name: ELIZA PERERA MR#: [id number] : 1970 Exam Date: 05/27/2024 Ordering Doctor: [...] melanoma cancer at age 19. LOCATION: [facility] BREAST COMPOSITION: The breasts are heterogeneously [...] Signed By: 05/27/24 1520 DD/ 1519 TD/TT: Quarry Supervisor Open Pit:TBHRadiology, Radiologist, - 05/27/2024 [place] [address] Mammography Report Signed Patient: ELIZA PERERA MR#: [id number] : 1970 Acct:[id number] Age/Sex: 53 / F ADM Date: 05/27/24 Loc: MAMMO Attending Dr: Javid Watson D.O. Ordering Physician: Javid Watson D.O. Results: Date of Service: 05/27/24 Follow Up: Procedure(s): MM tomosynthesis screening BI Accession Number(s): [id number] cc: Javid Watson D.O.; Josh Hong M.D. Patient Name: ELIZA PERERA MR#: [id number] : 1970 Exam Date: 05/27/2024 Ordering Doctor: [...] melanoma cancer at age 19. LOCATION: [facility] BREAST COMPOSITION: The breasts are heterogeneously [...] By: Rossana Velásquez M.D. Signed By: 05/27/24 1521 DD/ 1519 TD/TT: Quarry Supervisor Open Pit: EVARISTO [facility] MemorialRadiology Study observation (narrative)[facility] TOMOSYNTHESIS SCREENING BIOrdered By: Radiologist Radiology on 79-27-6755INOV [facility] Work Phone: aLL THYROID STIM HORMONEon 69-63-5619CWA Qn2.469 m[IU]/LNOMS HealthcareCLINISYNCNOMS HealthcareUS PELVIS W/ TRANSVAGINALon 78-69-5[address] [address] Ultrasound Report Signed Patient: ELIZA PERERA MR#: [id number] : 1970 Acct:[id number] Age/Sex: 53 / F ADM Date: 04/13/24 Loc: US Attending Dr: Javid Watson D.O. Ordering Physician: Javid Watson D.O. Date of Service: 04/13/24 Procedure(s): US pelvis w/ transvaginal Accession Number(s): [id number] cc: Javid Watson D.O.; Josh Hong M.D. The [address] [address] Patient Name: ELIZA PERERA MRN: [id number] date: 1970 Sex: F Assigned Patient Location: US Current Patient Location: Accession/Order Number: [id number] Exam Date: 04/13/2024 15:38 Report Date: 04/14/2024 [...] M.D. Signed By: 04/14/24629 DD/ 7 TD/TT: Quarry Supervisor Open Pit:TBHRadiology, Radiologist, - 04/14/2024 [place] [address] Ultrasound Report Signed Patient: ELIZA PERERA MR#: [id number] : 1970 Acct:[id number] Age/Sex: 53 / F ADM Date: 04/13/24 Loc: US Attending Dr: Javid Watson D.O. Ordering Physician: Javid Watson D.O. Date of Service: 04/13/24 Procedure(s): US pelvis w/ transvaginal Accession Number(s): [id number] cc: Javid Watson D.O.; Josh Hong M.D. [address] [address] Patient Name: ELIZA PERERA MRN: [id number] date: 1970 Sex: F Assigned Patient Location: US Current Patient Location: Accession/Order Number: [id number] Exam Date: 04/13/2024 15:38 Report Date: 04/14/2024 [...] M.D. Signed By: 04/14/24629 DD/ 7 TD/TT: Quarry Supervisor Open Pit: EVARISTO HealthcareRadiology Study observation (narrative)EVARISTO HealthcareUS PELVIS W/ TRANSVAGINALOrdered By: Radiologist Radiology on 88-52-8054GMAX StreetFire Work Phone: Loy [phone]: [phone] Received: 12/29/231316 Status: ANUSHA Collier Num: [id number] Spec Type: Surgical Subm Dr: Javid Watson Tissues: A Fallopian Tube Biopsy (RT TUBE REMNANT) Procedures: HE/2, Gross/Micro L4 Age/ Patient Sex Location Account Attending Physician Eliza Perera 53/F LABELL [id number] Javid Shirley SPEC NUM: [id number] RECD: 12/29/23 STATUS: ANUSHA BECKY NUM: [id number] CECILE: 12/26/23-[address]: Javid Watson ENTERED: 12/29/[address] [facility] DR: Glenda,Lab SPEC TYPE: Surgical [...] fluid. No normal tubal mucosa is identified. Director Trust sections are submitted in A1. CPT Codes 75910 Specimen: [id number] Received: 12/29/23 Status: ANUSHA Collier Num: [id number] Spec Type: Surgical Subm Dr: Javid Watson Tissues: A Fallopian Tube Biopsy (RT TUBE REMNANT) Procedures: HE/2, Gross/Micro L4 Patient: Eliza Perera [id number] (Continued) Signed (signature on file) Seth Blanton MD 12/30/[address] [place] [address] Physician GroupECG 12-LEADon 30-85-7889[place] [address] Electrocardiograph Report Signed Patient: ELIZA PERERA MR#: [id number] : 1970 Acct:[id number] Age/Sex: 53 / F ADM Date: Loc: SURGOUT Attending Dr: Javid Watson D.O. Ordering Physician: Javid Watson D.O. Date of Service: 12/16/23 Procedure(s): ECG 12 lead Accession Number(s): [id number] cc: [facility] Test Date: 2023-12-16 Pat Name: ELIZA PERERA Department: Room: - Gender: Female Crusher Operator: : 1970 Requested By: JOSH HONG Order Number: [id number] Josi MD: LOPEZ HAINES Measurements Intervals [place] Rate: 67 P: 68 NE: 160 QRS: 58 QRSD: 81 T: 70 QT: 373 QTc: 394 Interpretive Statements SINUS RHYTHM Compared to ECG 06/11/2022 10:44:04 No significant changes Electronically Signed On 12-16-2023 22:45:08 EDT by LOPEZ HAINES Dictated By: Lopez Haines D.O. Signed By: 12/16/232244 DD/ 1048 TD/TT: Quarry Supervisor Open Pit:ARNOLHRadiologrizwan Radiologist, - 12/16/2023 [place] [address] Electrocardiograph Report Signed Patient: ELIZA PERERA MR#: [id number] : 1970 Acct:[id number] Age/Sex: 53 / F ADM Date: Loc: SURGOUT Attending Dr: Javid Watson D.O. Ordering Physician: Javid Watson D.O. Date of Service: 12/16/23 Procedure(s): ECG 12 lead Accession Number(s): [id number] cc: [facility] Test Date: 2023-12-16 Pat Name: ELIZA PERERA Department: Room: - Gender: Female Crusher Operator: : 1970 Requested By: JOSH HONG Order Number: [id number] Reading MD: LOPEZ HAINES Measurements Intervals [place] Rate: 67 P: 68 NE: 160 QRS: 58 QRSD: 81 T: 70 QT: 373 QTc: 394 Interpretive Statements SINUS RHYTHM Compared to ECG 06/11/2022 10:44:04 No significant changes Electronically Signed On 12-16-2023 22:45:08 EDT by LOPEZ HAINES Dictated By: Lopez Haines D.O. Signed By: 12/16/232244 DD/ 1048 TD/TT: Quarry Supervisor Open Pit: EVARISTO FungRadiology Study observation (narrative)EVARISTO HealthcareECG 12-LEAD Ordered By: Radiologist Radiology on 60-78-5860PNCM Healthcare Work Phone: Loi [phone]: [phone] Received: 10/21/231429 Status: SOUT Req Num: [id number] Spec Type: Surgical Subm Dr: Elizabeth Perea DO Tissues: A Small Intestine - Biopsy/Polyp (SMALL BOWEL) B GASTRIC FOR HP (GASTRIC HP) C Gastric Biopsy (GASTRIC POLYP) Procedures: HE/6, Gross/Micro L4/3, H PYLORI, IHC First AB Age/ Patient Sex Location Account Attending Physician TreverEliza denny 52/F [id number] Elizabeth Perea DO SPEC NUM: [id number] RECD: 10/21/23 STATUS: ANUSHA ANNTiffany NUM: [id number] CECILE: 10/21/23- SUBM DR: Elizabeth Perea DO ENTERED: 10/21/[address] [facility] [address]: SPEC TYPE: Surgical DEPT: [...] tissue fragment, entirely submitted in B1. Specimen: [id number] Received: 10/21/23 Status: ANUSHA Collier Num: [id number] Spec Type: Surgical Subm Dr: Elizabeth Perea DO Tissues: A Small Intestine - Biopsy/Polyp (SMALL BOWEL) B GASTRIC FOR HP (GASTRIC HP) C Gastric Biopsy (GASTRIC POLYP) Procedures: /, Gross/Micro L4/3, H PYLORI, IHC First AB Patient: Eliza Perera [id number] (Continued) Specimen: [id number] Received: 10/21/23 (Continued) Gross Description (Continued) Signed (signature on file) Rossana Solares MD 10/22/23 1633 Specimen: [id number] Received: 10/21/23 Status: MARISSAErnie Collier Num: [id number] Spec Type: Surgical Subm Dr: Elizabeth Perea DO Tissues: A Small Intestine - Biopsy/Polyp (SMALL BOWEL) B GASTRIC FOR HP (GASTRIC HP) C Gastric Biopsy (GASTRIC POLYP) Procedures: HE/6, Gross/Micro L4/3, H PYLORI, IHC First AB Patient: Eliza Perera [id number] (Continued) Specimen: [id number] Received: 10/21/23 (Continued) Gross Description (Continued) C. Further labeled gastric polyp is a 0.4 x 0.2 x 0.1 cm menjivar mucosal tissue fragment, entirely submitted in C1. Clinical history: Rule out celiac, rule out H. pylori. CPT Codes 71861a4, 52307 Specimen: [id number] Received: 10/21/23 Status: ANUSHA Collier Num: [id number] Spec Type: Surgical Subm Dr: Elizabeth Perea, DO Tissues: A Small Intestine - Biopsy/Polyp (SMALL BOWEL) B GASTRIC FOR HP (GASTRIC HP) C Gastric Biopsy (GASTRIC POLYP) Procedures: HE/6, Gross/Micro L4/3, H PYLORI, IHC First AB Patient: Eliza Perera [id number] (Continued) Signed (signature on file) Rossana Solares MD 10/22/23 [facility] Physician GroupCytology Cervical or vaginal smear or scraping studyon 03-25-9436XNUXFreeman Health SystemVC VENOUS REFLUX RT [facility] 90-58-3302RU VENOUS REFLUX RT LMTPatient: ELIZA PERERA Exam Date: 10/30/2022 : 1970 Gender:F Ordering : DR JOSH HONG . Admission #: [id number] Family : Order #: [id number] CLICK HERE TO VIEW EXAM RADIOLOGY REPORT [...] Compressibility: Normal. Flow: Moderate deep venous reflux. Miniature Set Builder: None. Tech Note: Incompetent varicose vein lateral mid calf measures 2.7 mm with 0.3s reflux. Varicose vein distal lateral calf measures 4.2 mm with 2.3s reflux. CONCLUSION: 1. Moderate deep vein reflux 2. Moderate venous insufficiency right small saphenous vein 3. Incompetent varicose veins Dictated by: Rossana Velásquez MD on 10/30/2022 at 12:55 Approved by: Rossana Velásquez MD on 10/30/2022 at 12:59NormalThCincinnati Children's Hospital Medical CenterCBC AUTO DIFFon 99-03-3289STSE #0.1 103/ulNormal0.0-0.1[facility] HospitalComment on above:Performed By: #### TSH #### [facility] [address] [place] [address] Dr. Marlene Salomonsophils/100 WBC (Bld)0.6 %Normal0.2-2.0[facility] Comment on above:Performed By: #### TSH #### [facility] [address] [place] [address] Dr. Marlene Warren #0.0 103/ulNormal0.0-0.7[facility] HospitalComment on above: Performed By: #### TSH #### [facility] [address] [place] [address] Dr. Marlene Saldanaosinophils/100 WBC (Bld)0.0 %Critically low0.9-7.0[facility] HospitalComment on above:Performed By: #### TSH #### [facility] [address] [place] [address] Dr. Marlene Saldanarythrocyte distribution width (RBC) [Ratio]13.3 %Yvvqdb65.0-15.0 [facility] HospitalComment on above:Performed By: #### TSH #### [facility] [address] [place] [address] Dr. Marlene BlantonHematocrit (Bld) [Volume fraction]42.3 %Nbfysf09.0-48.0[facility] HospitalComment on above:Performed By: #### TSH #### [facility] [address] [place] [address] Dr. Marlene BlnatonHemoglobin (Bld) [Mass/Vol]13.0 g/zCGorysm31.0-16.0[facility] HospitalComment on above:Performed By: #### TSH #### [facility] [address] [place] [address] Dr. Marlene Ortiz #0.04 10e3/ulCritically high0.00-0.03[facility] Comment on above:Performed By: #### TSH #### [facility] [address] [place] [address] Dr. Marlene Ortiz %0.4 %Normal0.0-0.5The Green Cross HospitalComment on above: Performed By: #### TSH #### [facility] [address] [place] [address] Dr. Marlene FloydH #2.0 103/ulNormal1.2-3.8The [facility] HospitalComment on above:Performed By: #### TSH #### [facility] [address] [place] [address] Dr. Marlene Branchmphocytes/100 WBC (Bld)19.0 %Critically low20.5-60.0The [facility] HospitalComment on above:Performed By: #### TSH #### [facility] [address] [place] [address] Dr. Marlene Garland DIFF REQNONormalThe [facility] Cross HospitalComment on above: Performed By: #### TSH #### [facility] [address] [place] [address] Dr. Marlene Medina (RBC) [Entitic mass]29.6 pcSieotp88.7-34.0The [facility] HospitalComment on above:Performed By: #### TSH #### [facility] [address] [place] [address] Dr. Marlene Medina (RBC) [Mass/Vol]30.7 g/oKBwxjvl21.9-35.2The [facility] HospitalComment on above:Performed By: #### TSH #### [facility] [address] [place] [address] Dr. Marlene Medina (RBC) [Entitic vol]96.4 pBAyzjzb34.0-99.0The [facility] HospitalComment on above:Performed By: #### TSH #### [facility] [address] [place] [address] Dr. Marlene Don #0.7 103/ulNormal0.3-0.8The [facility] HospitalComment on above:Performed By: #### TSH #### [facility] [address] [place] [address] Dr. Marlene Cisnerosocytes/100 WBC (Bld)6.6 %Normal1.7-12.0[facility] Comment on above:Performed By: #### TSH #### [facility] [address] [place] [address] Dr. Marlene Thakkar #7.7 103/ulCritically high1.4-6.5[facility] Comment on above:Performed By: #### TSH #### [facility] [address] [place] [address] Dr. Marlene Saeedutrophils/100 WBC (Bld)73.4 %Emnmdd93.0-75.0The [facility] HospitalComment on above:Performed By: #### TSH #### [facility] [address] [place] [address] Dr. Marlene Morse mean volume (Bld) [Entitic vol]8.9 fLCritically low 9.5-13.5The [facility] on above:Performed By: #### TSH #### [facility] [address] [place] [address] Dr. Marlene BlantonPLT288 103/kxRjcsam513-845Nmi [facility] on above: Performed By: #### TSH #### [facility] [address] [place] [address] Dr. Marlene BlantonRBC4.39 106/ulNormal4.20-5.40The [facility] on above:Performed By: #### TSH #### [facility] [address] [place] [address] Dr. Marlene BlantonWBC10.5 103/ulNormal4.0-11.0The [facility] on above:Performed By: #### TSH #### [facility] [address] [place] [address] Dr. Marlene Schreiber T4on [id number] T4 [Mass/Vol]0.98 ng/dLNormal0.76-1.46 The [facility] on above:Performed By: #### FT4 #### [facility] [address] [place] [address] Dr. Marlene BlantonPROTIMEon [id number] Coag (PPP) [Relative time]0.95 {INR} NormalThe [facility] on above:Performed By: #### PT, PTT #### [facility] [address] [place] [address] Dr. Marlene Sloan GUIDELINESSEE [facility] on above:Result Comment: DESIRED INR: 2.0 - 3.0 CONDITIONS NOT LISTED BELOW 2.5 - 3.5 FOR PROSTHETIC HEART VALVE REPLACEMENT 2.5 - 3.5 RECURRENT THROMBOSIS Performed By: #### PT, PTT #### [facility] [address] [place] [address] Dr. Marlene Gallagher Coag (PPP) [Time]10.1 sNormal9.0-11.6[facility] Comment on above:Performed By: #### PT, PTT #### [facility] [address] [place] [address] Dr. Marlene Reyes [id number] Coag (Bld) [Time]27.2 rAleeve22.3-36.2The [facility] HospitalComment on above:Performed By: #### PT, PTT #### [facility] [address] [place] [address] Dr. Marlene Burns 20-66-8185YOE3.916 uIU/mLNormal0.358-3.740The [facility] HospitalComment on above:Performed By: #### TSH #### [facility] [address] [place] [address] Dr. Marlene Hudson 02-45-4062Zhby nitrogen [Mass/Vol]8.0 mg/dLNormal7.0-18.0 The [facility] HospitalComment on above:Performed By: #### CBC #### [facility] [address] [place] [address] Dr. Marlene Medina AUTO DIFFon [id number] #0.0 103/ulNormal0.0-0.1[facility] CenterComment on above:Performed By: #### TSH #### [facility] [address] [place] [address] Dr. Marlene BlantonBasophils/100 WBC (Bld)0.2 %Normal0.2-2.0[facility] Comment on above:Performed By: #### TSH #### [facility] [address] [place] [address] Dr. Marlene Warren #0.0 103/ulNormal0.0-0.7The [facility] HospitalComment on above: Performed By: #### TSH #### [facility] [address] [place] [address] Dr. Marlene Saldanaosinophils/100 WBC (Bld)0.1 %Critically low0.9-7.0The [facility] HospitalComment on above:Performed By: #### TSH #### [facility] [address] [place] [address] Dr. Marlene Saldanarythrocyte distribution width (RBC) [Ratio]13.4 %Dwkdea02.0-15.0 [facility] CenterComment on above:Performed By: #### TSH #### [facility] [address] [place] [address] Dr. Marlene BlantonHematocrit (Bld) [Volume fraction]33.6 %Critically low36.0-48.0 The [facility] Cross HospitalComment on above:Performed By: #### TSH #### [facility] [address] [place] [address] Dr. Marlene BlantonHemoglobin (Bld) [Mass/Vol]10.8 g/dLCritically low12.0-16.0The [facility] HospitalComment on above:Result Comment: post surgeryPerformed By: #### TSH #### [facility] [address] [place] [address] Dr. Marlene Ortiz #0.06 10e3/ulCritically high0.00-0.03[facility] Comment on above:Performed By: #### TSH #### [facility] [address] [place] [address] Dr. Marlene Ortiz %0.5 %Normal0.0-0.5ThCincinnati Children's Hospital Medical CenterComment on above: Performed By: #### TSH #### [facility] [address] [place] [address] Dr. Marlene FloydH #2.0 103/ulNormal1.2-3.8The [facility] HospitalComment on above:Performed By: #### TSH #### [facility] [address] [place] [address] Dr. Marlene Branchmphocytes/100 WBC (Bld)16.1 %Critically low20.5-60.0The [facility] HospitalComment on above:Performed By: #### TSH #### [facility] [address] [place] [address] Dr. Marlene Garland DIFF REQNONormalThe [facility] Cross HospitalComment on above: Performed By: #### TSH #### [facility] [address] [place] [address] Dr. Marlene Medina (RBC) [Entitic mass]29.0 ktUhlbxm77.7-34.0The [facility] HospitalComment on above:Performed By: #### TSH #### [facility] [address] [place] [address] Dr. Marlene Medina (RBC) [Mass/Vol]32.1 g/yMKswjqt06.9-35.2The [facility] HospitalComment on above:Performed By: #### TSH #### [facility] [address] [place] [address] Dr. Marlene Medina (RBC) [Entitic vol]90.1 wNGixejb09.0-99.0The [facility] HospitalComment on above:Performed By: #### TSH #### [facility] [address] [place] [address] Dr. Marlene Don #0.7 103/ulNormal0.3-0.8The [facility] HospitalComment on above:Performed By: #### TSH #### [facility] [address] [place] [address] Dr. Marlene Cisnerosocytes/100 WBC (Bld)5.3 %Normal1.7-12.0[facility] Comment on above:Performed By: #### TSH #### [facility] [address] [place] [address] Dr. Marlene Thakkar #9.7 103/ulCritically high1.4-6.5[facility] Comment on above:Performed By: #### TSH #### [facility] [address] [place] [address] Dr. Marlene Saeedutrophils/100 WBC (Bld)77.8 %Critically high43.0-75.0The [facility] HospitalComment on above:Performed By: #### TSH #### [facility] [address] [place] [address] Dr. Marlene BlantonPlatelet mean volume (Bld) [Entitic vol]8.5 fLCritically low 9.5-13.5The [facility] on above:Performed By: #### TSH #### [facility] [address] [place] [address] Dr. Marlene BlantonPLT248 103/stCahqii869-117Ljg [facility] HospitalComment on above: Performed By: #### TSH #### [facility] [address] [place] [address] Dr. Marlene BlantonRBC3.73 106/ulCritically low4.20-5.40The [facility] HospitalComup [facility] on above:Performed By: #### TSH #### [facility] [address] [place] [address] Dr. Marlene BlantonWBC12.4 103/ulCritically high4.0-11.0The [facility] HospitalComup [facility] on above:Performed By: #### TSH #### [facility] [address] [place] [address] Dr. Marlene BlantonCREATININEon 55-00-3737Ojvyshzcpo [Mass/Vol]0.87 mg/dLNormal 0.55-1.02The [facility] on above:Performed By: #### CBC #### [facility] [address] [place] [address] Dr. Marlene SaldanaGFR-AF COSTA RICAN>60Normal>=60The [facility] on above:Performed By: #### CBC #### [facility] [address] [place] [address] Dr. Marlene SaldanaGFR-NON AF COSTA RICAN>60Normal>=60The [facility] on above:Performed By: #### CBC #### [facility] [address] [place] [address] Dr. Marlene CharlesC AUTO DIFFon [id number] #0.1 103/ulNormal0.0-0.1The [facility] on above:Performed By: #### CBC #### [facility] [address] [address] [address] Marlene BlantonBasophils/100 WBC (Bld)0.5 %Normal0.2-2.0[facility] Comment on above:Performed By: #### CBC #### [facility] [address] [place] [address] Dr. Marlene Warren #0.0 103/ulNormal0.0-0.7The [facility] HospitalComment on above: Performed By: #### CBC #### [facility] [address] [place] [address] Dr. Marlene Saldanaosinophils/100 WBC (Bld)0.1 %Critically low0.9-7.0The [facility] HospitalComment on above:Performed By: #### CBC #### [facility] [address] [place] [address] Dr. Marlene Saldanarythrocyte distribution width (RBC) [Ratio]13.4 %Mhggcv40.0-15.0 The [facility] HospitalComment on above:Performed By: #### CBC #### [facility] [address] [place] [address] Dr. Marlene BlantonHematocrit (Bld) [Volume fraction]39.8 %Igsryj85.0-48.0The [facility] HospitalComment on above:Performed By: #### CBC #### [facility] [address] [place] [address] Dr. Marlene BlantonHemoglobin (Bld) [Mass/Vol]13.2 g/nULkkqew35.0-16.0The [facility] HospitalComment on above:Performed By: #### CBC #### [facility] [address] [place] [address] Dr. Marlene Ortiz #0.05 10e3/ulCritically high0.00-0.03[facility] Comment on above:Performed By: #### CBC #### [facility] [address] [place] [address] Dr. Marlene Ortiz %0.5 %Normal0.0-0.5The [facility] HospitalComment on above: Performed By: #### CBC #### [facility] [address] [address] [address] Marlene Ruffin #2.4 103/ulNormal1.2-3.8The [facility] HospitalComup [facility] on above:Performed By: #### CBC #### [facility] [address] [address] [address] Marlene Floydhocytes/100 WBC (Bld)24.7 %Ibthjq92.5-60.0The [facility] HospitalComment on above:Performed By: #### CBC #### [facility] [address] [address] [address] Marlene Garland DIFF REQNONormalThe [facility] HospitalComup health system on above: Performed By: #### CBC #### [facility] [address] [place] [address] Dr. Marlene Medina (RBC) [Entitic mass]29.7 weMqkrqn85.7-34.0The [facility] HospitalComment on above:Performed By: #### CBC #### [facility] [address] [place] [address] Dr. Marlene Medina (RBC) [Mass/Vol]33.2 g/nDUoqqnh11.9-35.2The [facility] on above:Performed By: #### CBC #### [facility] [address] [place] [address] Dr. Marlene Medina (RBC) [Entitic vol]89.4 sNOofrxi01.0-99.0The [facility] HospitalComment on above:Performed By: #### CBC #### [facility] [address] [address] [address] Marlene Don #0.8 103/ulNormal0.3-0.8The [facility] HospitalCom[facility] on above:Performed By: #### CBC #### [facility] [address] [place] [address] Dr. Marlene Cisnerosocytes/100 WBC (Bld)7.9 %Normal1.7-12.0[facility] Comment on above:Performed By: #### CBC #### [facility] [address] [address] [address] Marlene Thakkar #6.3 103/ulNormal1.4-6.5The [facility] HospitalComment on above:Performed By: #### CBC #### [facility] [address] [address] [address] Marlene Saeedutrophils/100 WBC (Bld)66.3 %Babifd77.0-75.0The [facility] HospitalComment on above:Performed By: #### CBC #### [facility] [address] [place] [address] Dr. Marlene Jordanlet mean volume (Bld) [Entitic vol]8.3 fLCritically low 9.5-13.5The [facility] HospitalComment on above:Performed By: #### CBC #### [facility] [address] [place] [address] Dr. Marlene BlantonPLT300 103/wdPrkmkr248-052Bby [facility] HospitalComment on above: Performed By: #### CBC #### [facility] [address] [place] [address] Dr. Marlene BlantonRBC4.45 106/ulNormal4.20-5.40The [facility] HospitalComment on above:Performed By: #### CBC #### [facility] [address] [place] [address] Dr. Marlene BlantonWBC9.6 103/ulNormal4.0-11.0The [facility] HospitalComment on above: Performed By: #### CBC #### [facility] [address] [place] [address] Dr. Marlene BlantonPRETania QUANT HCGon 87-49-9164VMN QUANT1 mIU/mLNormalThe [facility] Cross HospitalComment on above:Performed By: #### PREGQNT #### [facility] [address] [place] [address] Dr. Marlene Parks [facility] HospitalComment on above: Result Comment: 5-50 0.2-1 WEEK 50-500 1-2 WEEKS 100-5,000 2-3 WEEKS 500-10,000 3-4 WEEKS 1,000-50,000 4-5 WEEKS 10,000-100,000 5-6 WEEKS 15,000-200,000 6-8 WEEKS 10,000-100,000 2-3 MONTHSPerformed By: #### PREGQNT #### [facility] [address] [place] [address] Dr. Marlene BlantonTYPE AND SCREENon 49-73-6989OSPL AND SCREENNegativeNormalThe [facility] HospitalComment on above:Performed By: #### CBC #### [facility] [address] [place] [address] Dr. Marlene BlantonASYMPTOMATIC COVID-19 ANTIGENon [id number] StatementSEE BELOW NormalKnox Community Hospital on above:Result Comment: This test has not [...] is revoked sooner.Performed By: #### CBC #### [facility] [address] [place] [address] Dr. Marlene Pino-CoV-2 (COVID-19) RNA [place]+probe Ql (Unsp spec)Positive Critically abnormalNEGATIVEKnox Community Hospital on above:Result Comment: SARS-CoV-2 antigen present; does not rule out coinfection with other pathogens. Performed By: #### CBC #### [facility] [address] [place] [address] Dr. Marlene BlantonCovid-19 PCR (CVDTBH)on 00-17-6119IPFH-CoV-2 (COVID-19) RNA [place]+probe Ql (Unsp spec)DetectedCritically abnormalNOT DETECTEDThe [facility] HospitalComment on above:Result Comment: This test is not yet approved or cleared by the [place] FDA. When there are no FDA-approved or cleared tests available, and other criteria are met, FDA can make tests available under an emergency access mechanism called an Emergency Use Authorization (EUA). The EUA for this test is supported by the [place] of Health and Human Service's declaration that [...] longer be used).Performed By: #### CVDTBH #### [facility] [address] [place] [address] Dr. Marlene Wilson ACOG PANEL 2: 30 to 65on 05-15-2022..NormalThe [facility] Cross HospitalComment on above:Result Comment: Performed at: WBPerformed By: #### [id number] #### [facility] [address] [place] [address] Dr. Marlene BlantonAge Gdln ACOG Sjacerx13-00IgtoudVznGuernsey Memorial HospitalComment on above:Performed By: #### [id number] #### [facility] [address] [place] [address] Dr. Marlene BlantonDIAGNOSIS:CommentNoBlanchard Valley Health System Bluffton HospitalComment on above: Result Comment: NEGATIVE FOR INTRAEPITHELIAL LESION OR MALIGNANCY. FUNGAL ORGANISMS MORPHOLOGICALLY CONSISTENT WITH BAILEY SPECIES ARE PRESENT. Performed at: WBPerformed By: #### [id number] #### [facility] [address] [place] [address] Dr. Marlene BlantonHPV AptimaNegativeNormalNegativeCrystal Clinic Orthopedic CenterComment on above:Result Comment: This nucleic acid amplification test detects fourteen high-risk HPV types (16,18,31,33,35,39,45,51,52,56,58,59,66,68) without differentiation. Performed at: =GPerformed By: #### [id number] #### [facility] [address] [place] [address] Dr. Marlene BlantonHPV Genotype ReflexCommentUniversity Hospitals Geneva Medical Center on above:Result Comment: Criteria not met, HPV Genotype not performed. Performed at: WBPerformed By: #### [id number] #### [facility] [address] [place] [address] Dr. Marlene BlantonMethodology:CommentUniversity Hospitals Geneva Medical Center on above: Result Comment: This liquid based ThinPrep(R) pap test was screened with the use of an image guided system. Performed at: WBPerformed By: #### [id number] #### [address] [address] Dr[address] Marlene BlantonNote:CommentUniversity Hospitals Geneva Medical Center on above:Result Comment: The Pap smear is a screening test designed to aid in the detection of premalignant and malignant conditions of the uterine cervix. It is not a diagnostic procedure and should not be used as the sole means of detecting cervical cancer. Both false-positive and false-negative reports do occur. . Performed at: WBPerformed By: #### [id number] #### [address] [place] [address] Dr[address] Marlene BlantonPerformed by:CommentUniversity Hospitals Geneva Medical Center on above: Result Comment: Magan Gillespie, [employer] [place] Saw Operator (ASCP) Performed at: WBPerformed By: #### [id number] #### [address] [place] [address] Dr[address] Marlene BlantonSpecimen adequacy:CommentUniversity Hospitals Geneva Medical Center on above:Result Comment: Satisfactory for evaluation. No endocervical component is identified. Performed at: WBPerformed By: #### [id number] #### [facility] [address] [place] [address] Dr. Marlene BlantonMG MAMM SCREEN 3D JENNIFER CADon [id number] MAMM SCREEN 3D JENNIFER CAD Patient: ELIZA PERERA Exam Date: 05/14/2022 : 1970 Gender:F Ordering : DR JAVID WATSON . Admission #: [id number] Family : DR JOSH HONG . Order #: [id number] CLICK HERE TO VIEW EXAM RADIOLOGY REPORT [...] melanoma cancer at age 19. LOCATION: [facility] BREAST COMPOSITION: Heterogeneously dense,which may obscure [...] by: Cheikh Russo M.D. on 05/14/2022 at 14:48[facility] HospitalUS PELVIS AND TRANSVAGon [id number] PELVIS AND TRANSVAGEXAMINATION: US PELVIS AND TRANSVAG [...] Electronically authenticated by: ROSSANA VELÁSQUEZ Date: 2022-05-09 13:04NormalThTriHealth [facility] AUTO DIFFon [id number] #0.1 103/ulNormal0.0-0.1The [facility] HospitalComment on above:Performed By: #### TSH #### [facility] [address] [place] [address] Dr. Marlene BlantonBasophils/100 WBC (Bld)0.7 %Normal0.2-2.0[facility] Comment on above:Performed By: #### TSH #### [facility] [address] [place] [address] Dr. Marlene Warren #0.0 103/ulNormal0.0-0.7The [facility] HospitalComment on above: Performed By: #### TSH #### [facility] [address] [place] [address] Dr. Marlene Saldanaosinophils/100 WBC (Bld)0.0 %Critically low0.9-7.0The [facility] HospitalComment on above:Performed By: #### TSH #### [facility] [address] [place] [address] Dr. Marlene Saldanarythrocyte distribution width (RBC) [Ratio]13.4 %Hmbszz32.0-15.0 The [facility] HospitalComment on above:Performed By: #### TSH #### [facility] [address] [place] [address] Dr. Marlene BlantonHematocrit (Bld) [Volume fraction]42.1 %Nuljix36.0-48.0The [facility] HospitalComment on above:Performed By: #### TSH #### [facility] [address] [place] [address] Dr. Marlene BlantonHemoglobin (Bld) [Mass/Vol]13.8 g/rOEcrery08.0-16.0The [facility] HospitalComment on above:Performed By: #### TSH #### [facility] [address] [place] [address] Dr. Marlene Ortiz #0.04 10e3/ulCritically high0.00-0.03[facility] Comment on above:Performed By: #### TSH #### [facility] [address] [address] [address] Marlene Ortiz %0.4 %Normal0.0-0.5The [facility] HospitalComment on above: Performed By: #### TSH #### [facility] [address] [address] [address] Marlene Ruffin #2.1 103/ulNormal1.2-3.8The [facility] HospitalComment on above:Performed By: #### TSH #### [facility] [address] [place] [address] Dr. Marlene Floydhocytes/100 WBC (Bld)23.3 %Giokvg60.5-60.0The [facility] HospitalComment on above:Performed By: #### TSH #### [facility] [address] [place] [address] Dr. Marlene KahnUAL DIFF REQNONormalThe [facility] HospitalComment on above: Performed By: #### TSH #### [facility] [address] [place] [address] Dr. Marlene Medina (RBC) [Entitic mass]29.3 uaJnlems73.7-34.0The [facility]ment on above:Performed By: #### TSH #### [facility] [address] [place] [address] Dr. Marlene Medina (RBC) [Mass/Vol]32.8 g/rPYlseih48.9-35.2The [facility] Columbusment on above:Performed By: #### TSH #### [facility] [address] [place] [address] Dr. Marlene Medina (RBC) [Entitic vol]89.4 qMAnnxkk55.0-99.0The [facility] HospitalComment on above:Performed By: #### TSH #### [facility] [address] [place] [address] Dr. Marlene Don #0.7 103/ulNormal0.3-0.8The [facility] HospitalComment on above:Performed By: #### TSH #### [facility] [address] [address] [address] Marlene Cisnerosocytes/100 WBC (Bld)7.3 %Normal1.7-12.0The [facility] on above:Performed By: #### TSH #### [facility] [address] [address] [address] Marlene SaeedUT #6.1 103/ulNormal1.4-6.5The [facility] HospitalComment on above:Performed By: #### TSH #### [facility] [address] [place] [address] Dr. Marlene Saeedutrophils/100 WBC (Bld)68.3 %Vuodnm50.0-75.0The [facility] HospitalComment on above:Performed By: #### TSH #### [facility] [address] [place] [address] Dr. Marlene BlantonPlatelet mean volume (Bld) [Entitic vol]8.8 fLCritically low 9.5-13.5The [facility] HospitalComment on above:Performed By: #### TSH #### [facility] [address] [place] [address] Dr. Marlene BlantonPLT310 103/ycEitqhs120-687Enm [facility] HospitalComment on above: Performed By: #### TSH #### [facility] [address] [place] [address] Dr. Marlene BlantonRBC4.71 106/ulNormal4.20-5.40The [facility] HospitalComment on above:Performed By: #### TSH #### [facility] [facility] [address] [place] [address] Dr. Marlene BlantonWBC9.0 103/ulNormal4.0-11.0The [facility] HospitalComment on above: Performed By: #### TSH #### [facility] [address] [place] [address] Dr. Marlene Schreiber T4on 54-70-1654Btgx T4 [Mass/Vol]1.09 ng/dLNormal0.76-1.46 [facility] HospitalComment on above:Performed By: #### TSH #### [facility] [address] [place] [address] Dr. Marlene Mcelroy QUANT HCGon 42-05-3626YPO QUANT1 mIU/mLNormalCrystal Clinic Orthopedic CenterComup health system on above:Performed By: #### TSH, PREGQNT #### [facility] [address] [place] [address] Dr. Marlene Parks RANGESMercy Health Clermont HospitalComment on above: Result Comment: 5-50 0.2-1 WEEK 50-500 1-2 WEEKS 100-5,000 2-3 WEEKS 500-10,000 3-4 WEEKS 1,000-50,000 4-5 WEEKS 10,000-100,000 5-6 WEEKS 15,000-200,000 6-8 WEEKS 10,000-100,000 2-3 MONTHSPerformed By: #### TSH, PREGQNT #### [facility] [address] [place] [address] Dr. Marlene BlantonPROTIMEon 26-06-2178QOS Coag (PPP) [Relative time]0.95 {INR} NormalCrystal Clinic Orthopedic CenterComup health system on above:Performed By: #### CBC #### [facility] [address] [place] [address] Dr. Marlene [facility] CenterComment on above:Result Comment: DESIRED INR: 2.0 - 3.0 CONDITIONS NOT LISTED BELOW 2.5 - 3.5 FOR PROSTHETIC HEART VALVE REPLACEMENT 2.5 - 3.5 RECURRENT THROMBOSIS Performed By: #### CBC #### [facility] [address] [place] [address] Dr. Marlene BlantonPT Coag (PPP) [Time]10.3 sNormal9.0-11.6ThCincinnati Children's [facility] Comment on above:Performed By: #### CBC #### [facility] [address] [place] [address] Dr. Marlene Reyes 56-89-7689fIVA Coag (Bld) [Time]26.3 iQvggow80.3-36.2The [facility] HospitalComment on above:Performed By: #### CBC #### [facility] [address] [place] [address] Dr. Marlene Burns 80-82-8452JTT0.001 uIU/mLCritically high0.358-3.740The [facility] HospitalComment on above:Performed By: #### TSH, PREGQNT #### [facility] [address] [address] [address] Marlene Erazo 13-82-6072Aktfxssyo From: Jesenia Price LPN To: CORNELL - Clinical; Sent: 06/01/2020 08:20:44 EST Show up: 04/24/2030 09:00:00 EDT Subject: colonoscopy recall Due Date/Time: 05/24/2030 09:00:00 EST Reminder/Recall Patient is due for screening colonoscopy 05/24/2030.[facility] CampusAmbulatory Clinical Summaryon 92-52-7826Jajbukngox Clinical Summary {d7-0z-k4-1b-g9-73-28-g2-8e-w3-2n-r5-20-84-e1-42}CD:[id number] HospitalGeneral Surgery Office/Clinic Noteon 09-34-1575Rdblwsu Surgery Office/Clinic NoteChief Complaint post operative follow [...] Salguero Only if needed [address] [place] [address]- Additional Instructions: Problem List/Past Medical [...] Sister. Primary malignant neoplasm of female breast: Mother.[facility] CampusComment on above:Result Comment: Electronically Signed By: GABRIEL LAUREN, Corby Nick.br\Date and Time Signed: 05/31/20 16:31 ESTPathology Noteon 54-18-5561Ycrbsaofr [id number]#1.00CD:127 [facility] CampusOutside Colonoscopyon 97-07-2135Aamnupw [id number]#1.00CD:127[facility] CampusLab Reportson 77-42-5525Owj Reports [id number]#1.00CD:[address] [place], [place] [address]Provider Letter FTMCon 17-43-9918Gallgqkf Letter FT Josh Hong, [facility] [place] [address] Re: ELIZA PERERA Date of : 1970 Thank you for your referral of Eliza Perera who was seen on consultation on May 09, 2020, forrectal bleeding, abdominal pain with bowel movements. A colonoscopy is ordered for further evaluation. I will be happy to follow Eliza. Sincerely, Corby Buitrago MD General SurgeryTrinity Health System West CampusAmbulatory Clinical Summaryon 97-92-3245Burwbvzfyr Clinical Summary {x7-2r-68-v2-7m-80-51-1e-s0-75-q9-28-50-2a-7e-49}CD:272919JtbmpeMvlkpeTrinity Health System West CampusGeneral Surgery Office/Clinic Noteon 72-28-7065Bzhveww Surgery Office/Clinic NoteChief Complaint referral for rectal [...] available Patient Education Exercise to Stay Healthy, Sqon-ag-Jonu Problem List/Past Medical History Ongoing Abdominal pain, [...] Sister. Primary malignant neoplasm of female breast: Mother.[facility] CampusComment on above:Result Comment: Electronically Signed By: Corby BUITRAGO MD\Date and Time Signed: 05/09/20 17:10 ESTPatient Educationon 10-77-7152Zjtoavj EducationExercise to Stay Healthy Exercise helps you [...] Document Reviewed: 07/12/2011 ExitCare? Patient Information ?2013 [employer].[facility] CampusPhysician Referralon 68-42-3335Jijnvkfsh Referral [id number]#1.00CD:127NormalSelect [facility] Vital Signs Date TimeVital SignValuePerforming TrutyyqetNxobekyi15-13-3617 08:51-0500Body mass index (BMI) [Ratio]27 kg/m2May Yogi HURD Work Phone: [facility] SystemPdxgsnvfcy48-19-0132 08:51-0500Body mczgei24.2 kg May Yogi HURD Work Phone: [facility] SystemTikqrrjdsr60-02-2710 08:51-0500Diastolic blood yqralsla55 mm[Hg]May Yogi PA Work Phone: [phone]-formerly [facility] SystemXwenlwxpkh37-73-0991 08:51-0500Systolic blood hwqdutfj566 mm[Hg]May Yogi HURD Work Phone: 1(469)848-[address] [place], [place] [address]Rkseekoyvg42-33-7363 14:00-0400Diastolic blood hcpagkye97 mm[Hg]MD Josh Hong Work Phone: 1(003)[address] [place], [place] 5611304-30-2024 14:00-0400 Heart rate77 /minMD Josh Hong Work Phone: 1(952)[address] [place], [place] 5611304-30-2024 14:00-0400 Respiratory rate16 /minMD Josh Hong Work Phone: 1(666)[address] [place], [place] 5611304-30-2024 14:00-0400 SaO2% (BldA) [Mass fraction]97 %MD Josh Hong Work Phone: 1(341)[address] [place], [place] 5611304-30-2024 14:00-0400 Systolic blood mbcyvbpz024 mm[Hg]MD Josh Hong Work Phone: 1(448)[address] [place], [place] 5611304-30-2024 10:52-0400 Body .18 cmMD Josh Hong Work Phone: 1(705)[address] [place], [place] 5611304-30-2024 10:52-0400 Body ikjkwb20.37 kgMD Josh Hong Work Phone: 1(995)[address] [place], [place] 5611304-12-2024 09:50-0400 Body gakogw867.18 cmMD Josh Hong Work Phone: 1(065)[address]04-12-2024 09:50-0400 Body mass index (BMI) [Ratio]28 kg/m2MD Josh Hong Work Phone: [facility]04-12-2024 09:50-0400 Body .19 kgMD Josh Hong Work Phone: 1(846)986-[address] [place], [place] 1220904-12-2024 09:50-0400 Diastolic blood mm[Hg]MD Josh Hong Work Phone: [facility]04-12-2024 09:50-0400 Heart rate74 /minMD Josh Hong Work Phone: 1(931)978-[address] [place], [place] 1220904-12-2024 09:50-0400 Systolic blood dncybahp091 mm[Hg]MD Josh Hong Work Phone: 1(694)181-[address] [place] [address] Encounters Encounter DateEncounter TypeCare ProviderFacilityStart: 05-28-2024 End: 00-57-1263Ymengskjn Result EncounterCorey Shirley DO Work Phone: [facility] External Department UnsolicitedStart: 05-28-2024 End: 21-53-7132Sshxnvyyv Result EncounterCorey Shirley DO Work Phone: [facility] External Department UnsolicitedStart: 05-27-2024 End: 08-34-6072Lnxyopexr Result EncounterCorey Shirley DO Work Phone: [facility] External Department UnsolicitedStart: 05-27-2024 End: 84-28-0193Yjbdskuzr Result EncounterCorey Shirley DO Work Phone: NODM External Department UnsolicitedStart: 05-17-2024 End: 48-51-2169Udltfy Jacklyn HURD Work Phone: NOFJ BCP OBStart: 05-17-2024 End: 28-98-2997Suixkq flowsCaro HURD Work Phone: [facility] BCP OBStart: 05-17-2024 End: 70-50-2952Qektxmrub Result EncounterMay HURD Work Phone: [facility] External Department UnsolicitedStart: 05-17-2024 End: 65-60-2478rhaznmeqoiGQZ RAMEYNot AvailableStart: 05-17-2024 End: 48-48-5111Qkarfrt encounter procedureMay HURD Work Phone: [facility] Work Phone: Start: 05-17-2024 End: 27-55-1985Jkitklso preventive med est patient 40-64yrsAmy Yogi HURD Work Phone: [facility] BCP OBComment on above:Well woman exam with routine gynecological exam; Breast cancer screening by mammogram; Postmenopausal state; Other fatigue; Left ovarian cystStart: 04-16-2024 End: 61-00-8845Zscamcsrz encounterCorey Shirley DO Work Phone: [facility] BCP OBStart: 04-14-2024 End: 67-37-8784Hiuauzgfm Result EncounterCorey Shirley DO Work Phone: [facility] External Department UnsolicitedStart: 04-14-2024 End: 33-28-7034Zjqjyrwsw Result EncounterCorey Shirley DO Work Phone: [facility] External Department UnsolicitedStart: 01-08-2024 End: 72-83-9194rolzygjwgcTGD RAMEYNot AvailableStart: 12-26-2023 End: 12-96-2008qritsinrnjMT Josh Mcdonough Hoy Work Phone: [facility] Work Phone: Start: 12-26-2023 End: 59-81-3071Bvxkegec ReferredMD Josh Hoy Work Phone: [facility]-LAB Path Spec [facility] HospStart: 12-16-2023 End: 41-31-5596Fcbmrfhpb Result EncounterCorey Shirley DO Work Phone: [facility] External Department UnsolicitedStart: 12-16-2023 End: 63-12-7797Dayrxydyl Result EncounterCorey Shirley DO Work Phone: NOO[facility] External Department UnsolicitedStart: 12-01-2023 End: 48-11-8163jfsnwtyjyySHSTN FAZIONot AvailableStart: 11-06-2023 End: 80-92-0242mghiehswuyDMKDR FAZIONot AvailableStart: 51-59-2808Fbf-patient / Non-visitMD Josh Hong Work Phone: [facility] Work Phone: Start: 10-21-2023 End: 18-89-0932Mdqbaibdn to same day surgery centerMD Josh Hong Work Phone: [facility] Work Phone: Start: 10-21-2023 End: 81-78-3488shiscludifKE Josh Hong Work Phone: [facility] Work Phone: Start: 10-03-2023 End: 70-57-1332Dzlhsre encounter procedureMD Josh Hong Work Phone: [facility] Work Phone: Start: 10-30-2022 End: 26-03-2609sqitcysxltDM JOSH HONG .Facility:D3Pxueh: 07-04-2022 End: 67-95-4112irnustpcewTZ JAVID SHIRLEY .Facility:Q3Qmywy: 97-70-9149Rdgqxuijj for preprocedural laboratory examinationDR JAVID SHIRLEY .[facility] Start: 06-20-2022 End: 94-61-0292mhvxdnzsulJH JAVID SHIRLEY .Facility:R9Sctts: 91-82-4147Bwdfgjemg for preprocedural cardiovascular examinationDR JAVID SHIRLEY .[facility] 06-19-2022 End: 17-01-6233trkgdxpyvlOO JAVID SHIRLEY .Facility:C2Kuaqk: 06-19-2022 End: 53-31-8836Auuztzkrb for preprocedural laboratory examinationDR JAVID SHIRLEY .Facility:E8Wkhdy: 06-11-2022 End: 35-67-7927nvejjjzxteXL JAVID SHIRLEY .Facility:K8Lyaxk: 06-11-2022 End: 84-30-4393Bqgmntdez for preprocedural cardiovascular examinationDR JAVID SHIRLEY .Facility:A2Nianv: 05-28-2022 End: 78-66-8204yllinranpaSJAODMGQ EBERLYFacility:D6Mmyad: 05-21-2022 End: 88-93-0408ujcgsukkbqNZERYKLX EBERLYFacility:A0Wvdan: 05-14-2022 End: 70-28-8578kxoedghbekIY JAVID SHIRLEY .Facility:R6Udhaq: 05-09-2022 End: 39-07-5058hhagnlmipoAD ROSSANA Teague WESTFacility:H1Vrhvr: 05-08-2022 End: 40-86-5793vlsmjbzoauRT JAVID SHIRLEY .Facility:K9Sywva: 05-07-2022 End: 15-70-2096mgptfeqhztHG JAVID SHIRLEY .Facility:H1 Procedures DateProcedureProcedure DetailPerforming ClinicianStart: 92-04-4816LY DEXA AXIAL SKELETONCorey Shirley DO Work Phone: Start: 89-75-9216QJ TOMOSYNTHESIS SCREENING BICorey Shirley DO Work Phone: Start: 30-30-7243HounmpxtpvbKdmpb Shirley DO Work Phone: Start: 36-49-6453TVE THYROID STIM HORMONEAmy Yogi HURD Work Phone: Start: 78-07-0863Ygjwsmtzcra observation [Identifier] in Cervix by Cyto stainCorey Shirley DO Work Phone: Start: 52-78-4036YI PELVIS W/ TRANSVAGINALCorey Shirley DO Work Phone: Start: 22-55-9194IIM 12-LEADCorey Shirley DO Work Phone: Start: 23-97-1691ZudrhclzradwnguspwcoijemdfCZ Josh Hong Work Phone: Start: 65-92-9900ImltsnlgpbbXkw Yogi HURD Work Phone: Start: 37-93-1127Wgbxqspsuvm observation [Identifier] in Cervix by Cyto stainMay HURD Work Phone: Start: 80-14-4723Mmdm cerv/vag auto thin layer prep mnl screenCorey Shirley DO Work Phone: Start: 78-66-4078LzwgxofmcmyOhe Yogi HURD Work Phone: Plan of Treatment DateCare ActivityDetailAuthorStart: 10-48-2669Sfcpwbgml for malignant neoplasm of colonNOMS HealthcareStart: 18-75-5339Fkfmiagoy for malignant neoplasm of cervixNOMS HealthcareStart: 90-47-1628Wdtrvbmut for malignant neoplasm of cervix [facility] HealthcareStart: 30-23-9560Bhqgybsez for malignant neoplasm of breast MammogramNOMS HealthcareStart: 05-23-2025 End: 75-31-1411Wiafogt encounter procedureNOMS BCP OBStart: 38-78-1363Mhkizikqa for malignant neoplasm of breastMammogramNOMS HealthcareStart: 05-17-2024 End: 17-47-4623XFV W Auto Differential panel - BloodCBC and differential Lab Routine Other fatigue Expected: 05/17/2024 (Approximate), Expires: 05/17/2025 [facility] HealthcareComment on above:Expected: 05/17/2024 (Approximate), Expires: 05/17/2025Start: 05-17-2024 End: 64-82-0045XDP Skeletal system Views for bone densityDEXA bone density Imaging Routine Postmenopausal state Expected: 05/17/2024 (Approximate), Expires:05/17/2025N[facility] HealthcareComment on above:Expected: 05/17/2024 (Approximate), Expires: 05/17/2025Start: 05-17-2024 End: 59-50-3296YC Breast - bilateral ScreeningBilateral screening mammogram Imaging Routine Breast cancer screening by mammogram Expected: 05/17/2024, Expires: 07/17/2025[facility] Work Phone: comment on above:Expected: 05/17/2024, Expires: 07/17/2025Start: 05-17-2024 End: 93-65-0945LE for pregnancyUS PELVIS-TRANSVAG IF INDICATED Imaging Routine Left ovarian cyst Expected: 05/17/2024 (Approximate), Expires: 05/17/2025N[facility] HealthcareComment on above:Expected: 05/17/2024 (Approximate), Expires: 05/17/2025Start: 28-60-6231Dctmqwtnb vaccinationInfluenza Vaccine (#1)[facility] HealthcareStart: 29-37-4638TqxdtngkpACMC Healthcare System Glenbeightart: 1970 Screening [facility] malignant ne[facility]SE[facility] HealthcarePatient Education Gastritis Stomach polypsUniversity Hospitals Ahuja [facility] Work Phone: THIN PREP TIS PAP AND HR HPV DNATHIN PREP TIS PAP AND HR HPV DNA Pathology and Cytology Routine Well woman exam with routine gynecol ogical exam Ordered: 05/17/2024[facility] HealthcareComment on above:Ordered: 05/17/2024Thyrotropin [Units/volume] in Serum or PlasmaTSH Lab Routine Other fatigue Ordered: 05/17/2024[facility] HealthcareComment on above:Ordered: 05/17/2024 Immunizations Immunization DateImmunizationNotesCare IlfkhppdUenvuwyg11-85-7265rdjfpjzvh virus vaccine, unspecified formulationMay HURD Work Phone: [facility] Payers DatePayer CategoryPayerPolicy [id number]-[id number] Health InsuranceMEDICAL MUTUAL [id number] 2.16840.1.776239.3.57[id number] 2.840.1.114276.3.57[id number] 2.840.1.786098.3.57[id number] 2.840.1.730572.3.57[id number] 2.840.1.146823.3.57[id number] 2.0.1.730038.3.57[id number] 2.840.1.970329.3.579.[id number] 2.0.1.013296.3.57[id number] 2.840.1.912679.3.57[id number] 2.0.1.413775.3.579.[id number] 2.840.1.296269.3.57[id number] 2.840.1.690938.3.579.2.246752-67-7441Nlezdvi2652328 2.840.1.705051.3.579.2.546435-92-0768Giftmwc7961488 2.840.1.037056.3.579.2.612691-61-2456Prvsejy1009230 2..840.1.066353.3.579.[id number] 2..840.1.340[id number] 2.16.840.1.008733.3.579.2.531 Social History DateTypeDetailFacilityStart: 05-12-2023 End: 39-85-1233Nwujdeq smoking status NHISNever smoked tobacco (finding) [facility]ightart: 75-28-9975Gll Assigned At BirthFeTriHealthtart: 01-08-2024 End: 03-95-6168Ebrcavqtk beverage intakeEx-drinker (finding)[facility] Start: 05-12-2023 End: 61-12-6333Zvfownt of Social functionNOOH HealthcareStart: 05-12-2023 End: 93-63-5587Onjtepd Use Disorder Identification Test - Consumption [AUDIT-C] [facility] HealthcareHow often to you have a drink containing alcohol?Monthly or less [facility] HealthcareHow many standard drinks containing alcohol do you have on a typical day?1 or 2N[facility]S HealthcareHow often do you have 6 or more drinks on 1 occasion?NeverNOMS HealthcareStart: 27-15-6681Wmhgpmk CommentCaffeine intake: noneNOOH HealthcareStart: 75-01-1645Wte assigned at birthNot on fileNOOH HealthcareStart: 07-03-7088IimCescmuEBVO Healthcare Goals DatePatient GoalDesired Activity/State History of Present illness Narrative 05-17-2024 Note Date & UrwrVhwzDarukucv03-34-5684 History of Present illness Narrative* VANNESSA Sheffield [...] nursing note reviewed. Exam conducted with a porcelain enameler present. Vitals: Estimated body mass index is [...] behalf of: VANNESSA Sheffield documented in this [facility] Telephone encounter Note 04-16-2024 Note Date & AeymPesmXyvlygbh79-25-7981 Telephone encounter Note* Telephone Encounter - Inez Harper - 04/16/2024 8:39 AM EDT Patient had a US done on 04/14/2024, she hasn't heard any results yet. She wondered if Dr Watson hadreviewed yet as she is eager to learn of results. [facility] Healthcare Note 04-16-2024 Note Date & TmuyTlttGdhxqlry38-93-8790 Miscellaneous Notes* Telephone Encounter - Inez Harper - 04/16/2024 8:39 AM EDT Patient had a US done on 04/14/2024, she hasn't heard any results yet. She wondered if Dr Watson hadreviewed yet as she is eager to learn of results. documented in this [facility] Procedure note 10-21-2023 Note Date & SrsfQflvZamggvys55-60-4494 [facility]Ch[facility] 10-21-2023 Note Date & KkslRttmYtefzekl39-31-3994 Procedure noteCh[facility]ic[facility] Clinical Note 06-20-2022 Note Date & OutwFymgVwqksdmz61-72-5042 NoteOPERATIVE NOTE OPERATION DATE: 06/20/2022 PROCEDURE: vNOTES hysterectomy with cystoscopy and bilateral salpingectomy. PREOPERATIVE DIAGNOSIS: Pelvic pressure, menorrhagia, dysmenorrhea, dyspareunia. POSTOPERATIVE DIAGNOSIS: Pelvic pressure, menorrhagia, dysmenorrhea, dyspareunia. ANESTHESIA: General. SURGEON: Javid Watson M.D. HR ASSOCIATE: PIYUSH Howell URINE OUTPUT: Yellow and clear. [...] condition. Sponge, lap, needle counts correct x2.[facility] Evaluation note Note Date & TypeNoteFacilityEvaluation note* Diagnosis Onset Date Resolution Status Abdominal pain acuteBloatingacuteGERD (gastroesophageal reflux disease)acuteMucus in stoolWadsworth-Rittman Hospital Work Phone: Evaluation note Note Date & TypeNoteFacilityEvaluation note* Diagnosis Well woman exam with routine gynecological exam Routine gynecological examination Breast cancer screening by mammogram Postmenopausal state Asymptomatic postmenopausal status (age-related) (natural) Other fatigue Left ovarian cyst Other and unspecified ovarian cyst documented in this encounter [facility] History and physical note Note Date & TypeNoteFacilityHistory and physical note Author Elizabeth Perea [facility] October 21, 2023 12:42pmNote Date/TimeApril 2023 12:42pm[place] [address] Gastroenterology H&P Signed Patient: Eliza Perera MR#: [id number] : 1970 Acct:[id number] Age/Sex: 52 / F Adm Date: 4 Loc: Room: Type: [facility] Attending Dr: Elizabeth Perea DO Copies [...] Elizabeth Perea DO> 10/21/23 1242 [facility] Work Phone: Summary Purpose Family History Relationship [...] section and content) DATE CREATED AUTHOR 06/15/2020 [facility] DATE CREATED AUTHOR AUTHOR'S ORGANIZ ATION 11/03/2022 [facility] DATE CREATED AUTHOR AUTHOR'S ORGANIZ ATION 01/05/2024 [facility] DATE CREATED AUTHOR AUTHOR'S ORGANIZ ATION 05/19/2024 [facility] EPIC Care Teams (unrecognized sec [...] DateEnd Date Josh Hong MD [address] [place] [address] PCP - [facility] Pymsexkp43/22/23Te MemberRelationshipSpecialtyStart Date End Date Josh Hong MD [address] [place] [place] [address] [facility] - [facility]05/14/23Te MemberRelationshipSpecialtyStart Date End Date Josh Hong MD [address] [place] [facility] [place] [address] [facility] - [facility] Movtkfxr55/22/23Team MemberRelationshipSpecialtyStart Date End Date Josh Hong MD [address] [place] [facility] [place] [address] PCP - [facility] Fthxbhai80/22/23Team MemberRelationshipSpecialtyStart Date End Date Josh Hong MD PCP - GeneralFamily Janpkweu80/22/23 May Jorge PA [address] [place] [address], [place] [address] PCP - Medical [place] [employer] Reason for Visit (unrecogniz ed section [...] BE BASED ON THE PRIMARY CLINICAL RECORDS. [facility] [employer] [facility]. provides no warranty or guarantee of the accuracy or completeness of information in this document.
== END 2025-05-30 10:53 | disposition home or self-care (01) ==
LOC: MAMMO 10:52
PROVIDERS: PCP Family Medicine; Visit Provider Obstetrics & Gynecology
DX: Z12.31 Encounter for screening mammogram for malignant neoplasm of breast (principal); Z80.3 Family history of malignant neoplasm of breast; Z80.8 Family history of malignant neoplasm of other organs or systems
CPT/HCPCS: 77063; 77067